=== PATIENT | male | born 1935 | race Caucasian/White ===

== ENCOUNTER 2017-10-23 16:46 | Emergency (ER) | payer MEDICARE, OTHER ==
[~2017-10-23] VITALS: Ht 188 cm; Wt 74.4 kg
[~2017-10-23 16:46] MED LIST: ASP81CT; ASP81CT PO; ASP81TEC PO; BSC10SU PR; CLOP75TA; CODE-54 PO; DICL100G13 TOP; DILT120C PO; FNST5T; HYDR-3583 PO; HYDR-757 PO; LOSA25TA15 PO; LOVA40TA54; MAGN296S PO; MULT-963 PO; NIAC1CAP PO; ONDN4T PO; ORPH100T PO; PEG250PW PO; SIMV20TA3; SMV20T; WARF5TAB6 PO
--- OUTSIDE RECORDS SUMMARY | 2017-10-23 16:52 | XMS REPORT | Continuity of Care Document ---
Author Author [facility] Organization [facility] Address Unknown Phone Unavailable Allergies Active Description Code Type Severity Reaction Onset Reported/Identified Relationship to Patient Clinical Status Yes NKANo Known Allergies NKA Miscellaneous Allergy Mild N/A 04/01/2009 Yes statin med statin med Unknown N/A 07/22/2014 Yes codeine [id number] Drug Allergy Mild Altered taste 02/13/2015 Medications Problems Date Dx Coded Attending Type Code Diagnosis Diagnosed By 10/13/2014 CAITLYN SANTILLAN DRY CELL SEALER Ot 427.31 10/22/2014 CAITLYN SANTILLAN DRY CELL SEALER Ot 427.31 11/04/2014 CAITLYN SANTILLAN DRY CELL SEALER Ot 427.31 11/04/2014 CAITLYN SANTILLAN DRY CELL SEALER Ot 427.31 11/05/2014 CAITLYN SANTILLAN DRY CELL SEALER Ot 427.31 11/08/2014 CIATLYN SANTILLAN DRY CELL SEALER Ot 427.31 11/08/2014 CAITLYN SANTILLAN DRY CELL SEALER Ot 427.31 12/13/2014 VIVIAN ROMANO, SADA Conteh Ot 564.00 12/13/2014 VIVIAN ROMANO, SADA Coneth Ot 724.2 12/13/2014 SADA PARK MD Ot V58.61 12/18/2014 CAITLYN SANTILLAN DRY CELL SEALER Ot 427.31 01/04/2015 JUAN GUERRIER DO Ot 724.2 01/04/2015 JUAN GUERRIER DO Ot 805.4 01/04/2015 JUAN GUERRIER DO Ot E000.8 01/04/2015 JUAN GUERRIER DO Ot E927.0 02/13/2015 Ot 427.31 02/13/2015 Ot 553.1 02/13/2015 Ot 793.4 02/13/2015 Ot 427.31 02/13/2015 LANDEN LUCAS APRN Ot 719.45 02/13/2015 LANDEN LUCAS APRN Ot 724.2 Procedures Results Encounters ACCT No. Visit Date/Time Discharge Status Pt. Type Provider Facility Loc./Unit Complaint [id number] 02/13/2015 11:28:00 2014 13:00:00 DIS Emergency LANDEN LUCAS APRN [facility] ER [id number] 01/04/2015 12:07:00 2014 14:15:00 DIS Emergency JUAN GUERRIER DO [facility] ER [id number] 01/02/2015 08:32:00 2014 23:59:59 CLS Outpatient CAITLYN SANTILLAN [facility] LAB [id number] 12/13/2014 13:12:00 2014 16:08:00 DIS Emergency SADA PARK MD [facility] ER [id number] 10/08/2014 08:09:00 2013 00:01:00 DIS Outpatient CAITLYN SANTILLAN [facility] LAB [id number] 07/22/2014 15:21:00 2013 18:06:00 DIS Emergency [id number] 06/24/2014 08:29:00 2013 00:01:00 DIS Outpatient [id number] 07/16/2014 13:20:00 2013 14:42:00 DIS Emergency [id number] 05/20/2014 12:54:00 2013 20:00:00 DIS Outpatient [id number] 02/24/2014 08:12:00 2013 00:01:00 DIS Outpatient [id number] 10/08/2013 08:19:00 2013 00:01:00 DIS Outpatient [id number] 08/05/2013 12:38:00 2012 00:01:00 DIS Outpatient [id number] 10/21/2013 08:29:00 2012 23:59:59 CLS Outpatient [id number] 08/02/2013 01:20:00 2012 15:25:00 DIS Inpatient [id number] 05/02/2013 08:20:00 2012 23:59:59 CLS Outpatient [id number] 04/10/2013 07:53:00 2012 11:20:00 DIS Outpatient [id number] 04/03/2013 07:27:00 2012 23:59:59 CLS Outpatient [id number] 02/13/2015 11:42:00 Document Registration [id number] 11/04/2013 13:45:00 Document Registration
[2017-10-23] MEDS ORDERED: DOCU-238 PO (17:23)
[2017-10-23] MEDS ORDERED: FINA5TAB6 PO (17:23)
[2017-10-23] MEDS ORDERED: APIX5TAB PO (17:23)
[2017-10-23] MEDS ORDERED: DOCU100T7 PO (17:23)
--- NOTE | 2017-10-23 18:42 | Diagnostic Imaging Report ---
INDICATION: Abdominal pain. Two views were obtained. FINDINGS: The lung bases are clear. The bowel gas pattern is nonspecific. There is no free air. There are no abnormal abdominal calcifications. There have been previous kyphoplasties at L2, L3, and L4. IMPRESSION: Nonspecific bowel gas pattern. Dictated by: Dictated on workstation # [id number]
[2017-10-23 19:50] LABS: BILIRUBIN,URINE NEGATIVE (NEGATIVE); KETONES,URINE NEGATIVE (NEGATIVE); LEUKOCYTE ESTERASE ,URINE NEGATIVE (NEGATIVE); NITRITE,URINE NEGATIVE (NEGATIVE); PH,URINE 5 (5-9); PROTEIN,URINE NEGATIVE (NEGATIVE); UROBILINOGEN,URINE NORMAL (NORMAL)
[2017-10-23 20:00] LABS: SQUAMOUS EPITHELIAL CELL,UR 0-2 /HPF
[2017-10-23] MEDS ORDERED: metroNIDAZOLE 500 MG (FLAGYL) TAB PO ONE (20:45)
[2017-10-23] MEDS ORDERED: CIPROFLOXACIN 500 MG (CIPRO) TABLET PO ONE (20:45)
[2017-10-23] MEDS ORDERED: LIDOCAINE JELLY 2% (XYLOCAINE) 5 ML TUBE TOP ONE (20:45)
[2017-10-23] MEDS ORDERED: METR500T PO (20:53)
[2017-10-23] MEDS ORDERED: HC A30CR RC (20:53)
[2017-10-23] MEDS ORDERED: CIPR-225 PO (20:53)
--- NOTE | 2017-10-23 20:55 | ED GI ---
General Chief Complaint: Rect Problems Stated Complaint: CONSTIPATION/RECTAL PAIN Nursing Triage Note: PT TO ROOM 9. STATES THAT HE TOOK MIRALAX THIS MORNING DUE TO FEELING CONSTIPATED. PT NOW FEELS LIKE HE IS STRAINING WHEN HE GOES AND HAS HAD LIQUID STOOLS. ALSO COMPLAINING OF RECTAL PAIN. Sepsis Screen: No Definite Risk Source of Information: Patient Exam Limitations: No Limitations History of Present Illness Time Seen By Provider: 18:24 Initial Comments This 82-year-old gentleman presents to the emergency room complaining of constipation for which he took MiraLAX this morning. Since then he has been passing small quantities of watery stool and has been incontinent at times. He describes these as "liquid farts". He complains of associated rectal pain and lower back ache. He denies nausea or vomiting. He is afebrile. Pain has been present since 16:00. He reports chronic urinary frequency which is unchanged. He denies rectal bleeding. He is on Eliquis for A-fib. Allergies and Home Medications Allergies Coded Allergies: codeine (Unverified Adverse Reaction, Mild, Altered taste, 02/13/15) Uncoded Allergies: statin med (Allergy, Unknown, 07/22/14) dry mouth; unable to urinate Home Medications Apixaban 5 Mg Tablet, 5 MG PO BID, (Reported) Aspirin 81 Mg Tabec, 81 MG PO DAILY, (Reported) Ciprofloxacin HCl 500 Mg Tablet, 500 MG PO BID, #14 Prescribed by: GLENNY HOWARD on 10/23/172052 Clotrimazole 15 Gm Cream..g., 15 GM TP BID, #1 Ref 1 Prescribed by: GLENNY HOWARD on 10/23/172055 Docusate Sodium 100 Mg Capsule, 100 MG PO, (Reported) Docusate Sodium 100 Mg Tablet, Unknown Dose PO, (Reported) Finasteride 5 Mg Tablet, 5 MG PO, (Reported) Hydrocortisone/Pramoxine 30 Gm Cream.appl, 1 APPLIC RC QID, #1 Prescribed by: GLENNY HOWARD on 10/23/172052 Metronidazole 500 Mg Tablet, 500 MG PO QID, #28 Prescribed by: GLENNY HOWARD on 10/23/172052 Multivitamin 1 Each Tablet, 1 TAB PO DAILY, (Reported) Review of Systems Constitutional: no symptoms reported EENTM: No Symptoms Reported Respiratory: No Symptoms Reported Cardiovascular: See HPI Gastrointestinal: See HPI Genitourinary: See HPI Musculoskeletal: no symptoms reported Skin: no symptoms reported Psychiatric/Neurological: No Symptoms Reported Endocrine: No Symptoms Reported Past Cwvgbpj-Kjzzej-Kaiqvb Hx Patient Social History Recent Foreign Travel: No Contact w/Someone Who Travel: No Recent Infectious Disease Expo: No Recent Hopitalizations: No Physical Abuse: No Sexual Abuse: No Immunizations Up To Date Tetanus Booster (TDap): Unknown PED Vaccines UTD: No Date of Pneumonia Vaccine: Aug 20, 2012 Date of Influenza Vaccine: Aug 20, 2014 Seasonal Allergies Seasonal Allergies: No Surgeries History of Surgeries: Yes (Cardiac stent x 2) Surgeries: Coronary Stent, Orthopedic Respiratory History of Respiratory Disorde: No Cardiovascular History of Cardiac Disorders: Yes (Cardiac stent X2 ) Cardiac Disorders: Deep Vein Thrombosis, Heart Attack, High Cholesterol, Hypertension Neurological History of Neurological Disord: No Neurological Disorders: Vertigo Reproductive System Hx Reproductive Disorders: No Genitourinary History of Genitourinary Disor: Yes Genitourinary Disorders: Benign Prostatic Hyperpl Gastrointestinal History of Gastrointestinal Di: No Musculoskeletal History of Musculoskeletal Dis: Yes (FX L WRIST) Musculoskeletal Disorders: Chronic Back Pain Endocrine History of Endocrine Disorders: No HEENT History of HEENT Disorders: No Cancer History of Cancer: No Psychosocial History of Psychiatric Problem: No Behavioral Health Disorders: Anxiety Suicide Risk Score: 0 Integumentary History of Skin or Integumenta: No Blood Transfusions History of Blood Disorders: No Adverse Reaction to a Blood Tr: No Physical Exam Vital Signs VS - Last 72 Hours, by Label 10/23/17 10/23/17 16:56 21:10 Temp 98.6 98.6 Pulse 98 98 Resp 24 24 B/P (MAP) 146/98 (114) Pulse Ox 96 96 O2 Delivery Room Air Capillary Refill : Less Than 3 Seconds General Appearance: WD/WN, no apparent distress HEENT: PERRL/EOMI, normal ENT inspection Neck: normal inspection Respiratory: lungs clear, normal breath sounds, no respiratory distress, no accessory muscle use Cardiovascular: regular rate, rhythm, no edema, no murmur Gastrointestinal: normal bowel sounds, non tender, soft Genital/Rectal: normal rectal tone, tenderness, other (anal tissue is inflamed with small amount of gross blood on the skin present. Digital rectal exam revealed no masses but there was rectal pain with palpation. No active bleeding noted.) Extremities: normal inspection, no pedal edema Skin: warm/dry, rash (slightly raised and erythematous patch of skin on the left buttocks) Progress/Results/Core Measures Results/Orders Lab Results Laboratory Tests Test 10/23/17 19:44 Range/Units Urine Color YELLOW Urine Clarity CLEAR Urine pH 5 5-9 Urine Specific [place] 1.025 H 1.016-1.022 Urine Protein NEGATIVE NEGATIVE Urine Glucose (UA) NEGATIVE NEGATIVE Urine Ketones NEGATIVE NEGATIVE Urine Nitrite NEGATIVE NEGATIVE Urine Bilirubin NEGATIVE NEGATIVE Urine Urobilinogen NORMAL NORMAL MG/DL Urine Leukocyte Esterase NEGATIVE NEGATIVE Urine RBC (Auto) NEGATIVE NEGATIVE Urine RBC NONE /HPF Urine WBC NONE /HPF Urine Squamous Epithelial Cells 0-2 /HPF Urine Crystals NONE /LPF Urine Bacteria NONE /HPF Urine Casts NONE /LPF Urine Mucus NEGATIVE /LPF Urine Culture Indicated NO My Orders Orders - GLENNY ABREU MD Abdomen, Flat & Upright/Decub (10/23/17 18:12) Ua Culture If Indicated (10/23/17 19:23) Lidocaine 2% Jelly 5 Ml (Xylocaine Jelly (10/23/17 20:45) Ciprofloxacin Tablet (Cipro Tablet) (10/23/17 20:45) Metronidazole Tablet (Flagyl Tablet) (10/23/17 20:45) Lidocaine 2% Viscous 15 Ml (Xylocaine Vi (10/23/17 21:00) Medications Given in ED Current Medications Medications Dose Ordered Sig/Adelfo Route Start Time Stop Time Status Last Admin Dose Admin Ciprofloxacin 500 mg ONCE ONCE PO 10/23/17 20:45 10/23/17 20:46 DC 10/23/17 21:05 500 MG Metronidazole 500 mg ONCE ONCE PO 10/23/17 20:45 10/23/17 20:46 DC 10/23/17 21:05 500 MG Vital Signs/I&O Vital Sign - Last 12Hours 10/23/17 10/23/17 16:56 21:10 Temp 98.6 98.6 Pulse 98 98 Resp 24 24 B/P (MAP) 146/98 (114) Pulse Ox 96 96 O2 Delivery Room Air Blood Pressure Mean: 114 Progress Note : Progress Note Patient developed rectal bleeding while in the ER. Rectal exam demonstrated inflamed skin and tender rectal vault. He was treated for proctitis with oral antibiotics. He was given viscous lidocaine to use as a topical anesthetic. Departure Impression Impression: Primary Impression: Proctitis Additional Impression: Tinea corporis Disposition: 01 HOME, SELF-CARE Condition: Improved Departure-Patient Inst. Decision time for Depature: 20:51 Referrals: LISETH SCHMITZ MD (PCP/Family) Primary Care Physician Patient Instructions: Proctitis Add. Discharge Instructions: Drink plenty of clear liquids. Gradually advance your diet as tolerated. Complete your antibiotics as prescribed. Return to emergency room if symptoms worsen. Specifically, return to care if you develop fever over 100, worsening pain, or worsening bleeding. Follow up with your primary care provider as soon as possible. Call tomorrow morning when the office opens to obtain a follow- up. Do not take Eliquis as long as you have active rectal bleeding. You may take Tylenol (acetaminophen) up to 1000 mg every 6 hours as needed for pain. Use the Analpram as prescribed to soothe the rectal irritation. Tonight you may use the lidocaine jelly applied directly to your rectum to help with pain relief. Apply the clotrimazole cream to the spot on your left buttocks. Follow -up with your primary care provider for further evaluation if this does not resolve the spot within 2 weeks. All discharge instructions reviewed with patient and/or family. Voiced understanding. Scripts Clotrimazole (Clotrimazole) 15 Gm Cream..g. 15 GM TP BID, #1 TUBE 1 Refill Prov: GLENNY ABREU MD 10/23/17 Metronidazole (Flagyl) 500 Mg Tablet 500 MG PO QID, #28 TAB Prov: GLENNY ABREU MD 10/23/17 Ciprofloxacin HCl (Cipro) 500 Mg Tablet 500 MG PO BID, #14 TAB Prov: GLENNY ABREU MD 10/23/17 Hydrocortisone/Pramoxine (Analpram Hc 2.5% Cream) 30 Gm Cream.appl 1 APPLIC RC QID, #1 EA Prov: GLENNY ABREU MD 10/23/17 Copy Copies To 1: LISETH SCHMITZ MD Copies To 2: UZIEL SHEEHAN MD [facility]S GLENNY ABREU MD Oct 23, 2017 20:55
[2017-10-23] MEDS ORDERED: CLOT15CR5 TP (20:56)
[2017-10-23] MEDS ORDERED: LIDOCAINE 2% VISCOUS 15 ML UDC ONE (21:00)
[2017-10-23 21:10] VITALS: BP 146/98
== END 2017-10-23 21:10 | disposition home or self-care (01) ==
LOC: EDUNIT# 16:46 → ER 16:48
DX: K62.89 Other specified diseases of anus and rectum (principal); B35.4 Tinea corporis; I48.91 Unspecified atrial fibrillation; I25.2 Old myocardial infarction; E78.00 Pure hypercholesterolemia, unspecified; I10 Essential (primary) hypertension; N40.0 Benign prostatic hyperplasia without lower urinary tract symptoms; F41.9 Anxiety disorder, unspecified; Z79.01 Long term (current) use of anticoagulants; Z79.82 Long term (current) use of aspirin; Z95.5 Presence of coronary angioplasty implant and graft; Z86.718 Personal history of other venous thrombosis and embolism
CPT/HCPCS: 74020; 81000; 99283

== ENCOUNTER 2018-01-11 13:31 | Outpatient (CLI) | payer MEDICARE, OTHER ==
[~2018-01-11] VITALS: Ht 188 cm; Wt 74.4 kg
[~2018-01-11 13:31] MED LIST changes: +APIX5TAB PO; +CIPR-225 PO; +CLOT15CR5 TP; +DOCU-238 PO; +DOCU100T7 PO; +FINA5TAB6 PO; +HC A30CR RC; +METR500T PO
[2018-01-11] MEDS ORDERED: DEXAMETHASONE 10 MG/ML (DECADRON) 1 ML VIAL ONE (13:35)
[2018-01-11 13:52] VITALS: BP 162/99
[2018-01-11 14:17] VITALS: BP 161/111
== END 2018-01-11 14:19 | disposition home or self-care (01) ==
LOC: CARD 13:31
PROVIDERS: ATTEND Pain Medicine Interventional Pain Medicine
DX: M54.14 Radiculopathy, thoracic region (principal)
CPT/HCPCS: 62321

== ENCOUNTER 2019-03-10 03:49 | Inpatient (IN) | payer MEDICARE, OTHER ==
[2019-03-10] VITALS (9 sets, daily range): BP systolic 93–146; BP diastolic 35–98
[~2019-03-10] VITALS: Ht 189.2 cm; Wt 78.0 kg
[2019-03-10 04:09] LABS: BASOPHILS % (AUTO) 0 % (0-10); EOSINOPHILS # (AUTO) 0.1 10^3/uL (0.0-0.3); EOSINOPHILS % (AUTO) 1 % (0-10); HEMATOCRIT 41 % (40-54); HEMOGLOBIN 14.1 G/DL (13.3-17.7); LYMPHOCYTES # (AUTO) 2.7 X 10^3 (1.0-4.0); LYMPHOCYTES % (AUTO) 37 % (12-44); MEAN CORPUSCULAR HEMOGLOBIN 30 PG (25-34); MEAN CORPUSCULAR HGB CONC 34 G/DL (32-36); MEAN CORPUSCULAR VOLUME 89 FL (80-99); MEAN PLATELET VOLUME 11.4 FL (7.4-10.4); MONOCYTES # (AUTO) 0.7 X 10^3 (0.0-1.0); MONOCYTES % (AUTO) 9 % (0-12); NEUTROPHILS # (AUTO) 3.9 X 10^3 (1.8-7.8); NEUTROPHILS % (AUTO) 52 % (42-75); PLATELET COUNT 121 10^3/uL (130-400); RED CELL DISTRIBUTION WIDTH 15.7 % (10.0-14.5); WHITE BLOOD COUNT 7.4 10^3/uL (4.3-11.0)
[2019-03-10 04:15] LABS: INR 1.2 (0.8-1.4); PROTHROMBIN TIME PATIENT 16.1 SEC (12.2-14.7)
[2019-03-10] MEDS ORDERED: DILTIAZEM INJECTION 125 MG in NS (IVPB) 100 ML IV SCH (04:15)
[2019-03-10] MEDS ORDERED: DILTIAZEM 25 MG/5 ML INJ (CARDIZEM) VIAL IVP ONE (04:15)
[2019-03-10] MEDS ORDERED: DILTIAZEM 125 MG/25 ML IV (CARDIZEM) IV ONE (04:19)
--- NOTE | 2019-03-10 04:23 | ED Cardiac General ---
History of Present Illness General Chief Complaint: Chest Pain Stated Complaint: CHEST PAIN Nursing Triage Note: EMS activated for a patient with c/o of left sided chest pain accompanied by shortness of breath that began at 0226. Patient advises he took one nitro and the chest pain has since improved. Source: patient, EMS Exam Limitations: no limitations History of Present Illness Date Seen by Provider: Mar 10, 2019 Time Seen by Provider: 03:56 Initial Comments Here with report of left-sided chest pain that began around 2:30 this morning. He did take a nitroglycerin that helped. EMS was called. EMS reports giving 4 baby aspirin and noted patient to be tachycardic that seemed regular to them at that point. Initially somewhat hypertensive but improved with time. They did initiate IV and started normal saline. Patient denies nausea or vomiting. He does admit to cough over the last several days. No fever or chills. Chest pain is lateral and aching on the left side. Timing/Duration: 1-3 hours Severity: moderate Location: other (left chest) Activities at Onset: sleep Prior CP/Workup: cardiac cath, echocardiography, stress test NTG SL TEAR DOWN MATCHER: Yes (per patient 1 at home ) ASA po TEAR DOWN MATCHER: Yes (324 per EMS) Associated Systoms: Chest Pain, Cough; No Nausea/Vomiting; Shortness of Air; No Weakness Allergies and Home Medications Allergies Coded Allergies: codeine (Unverified Adverse Reaction, Mild, Altered taste, 02/13/15) Uncoded Allergies: statin med (Allergy, Unknown, 07/22/14) dry mouth; unable to urinate Home Medications Apixaban 5 Mg Tablet, 5 MG PO BID, (Reported) Aspirin 81 Mg Tabec, 81 MG PO DAILY, (Reported) Ciprofloxacin HCl 500 Mg Tablet, 500 MG PO BID Prescribed by: GLENNY HOWARD on 10/23/172052 Clotrimazole 15 Gm Cream..g., 15 GM TP BID Prescribed by: GLENNY HOWARD on 10/23/172055 Hydrocortisone/Pramoxine 30 Gm Cream.appl, 1 APPLIC RC QID Prescribed by: GLENNY HOWARD on 10/23/172052 Metronidazole 500 Mg Tablet, 500 MG PO QID Prescribed by: GLENNY HOWARD on 10/23/172052 Multivitamin 1 Each Tablet, 1 TAB PO DAILY, (Reported) Patient Home Medication List Home Medication List Reviewed: Yes Review of Systems Review of Systems Constitutional: see HPI; No chills, No fever EENTM: No Symptoms Reported Respiratory: See HPI, Cough, Shortness of Air Cardiovascular: Irregular Heart Rate Gastrointestinal: No Symptoms Reported Genitourinary: No Symptoms Reported Musculoskeletal: no symptoms reported Skin: no symptoms reported Psychiatric/Neurological: No Symptoms Reported All Other Systems Reviewed Negative Unless Noted: Yes Past Eqbslpw-Rmchpk-Mffroi Hx Past Med/Social Hx: Reviewed Nursing Past Med/Soc Hx Patient Social History Alcohol Use: Denies Use Recreational Drug Use: No Smoking Status: Never a Smoker Recent Foreign Travel: No Contact w/Someone Who Travel: No Recent Infectious Disease Expo: No Recent Hopitalizations: No Immunizations Up To Date Tetanus Booster (TDap): Unknown PED Vaccines UTD: No Date of Pneumonia Vaccine: Aug 20, 2012 Date of Influenza Vaccine: Aug 20, 2014 Seasonal Allergies Seasonal Allergies: No Past Medical History Surgeries: Yes (Cardiac stent x 2) Coronary Stent, Orthopedic Respiratory: No Cardiac: Yes (Cardiac stent X2 ) Deep Vein Thrombosis, Heart Attack, High Cholesterol, Hypertension Neurological: No Vertigo Reproductive Disorders: No Genitourinary: Yes Benign Prostatic Hyperpl Gastrointestinal: No Musculoskeletal: Yes (FX L WRIST) Chronic Back Pain Endocrine: No HEENT: No Cancer: No Psychosocial: No Anxiety Integumentary: No Blood Disorders: No Adverse Reaction/Blood Tranf: No Family Medical History Reviewed Nursing Family Hx Physical Exam Vital Signs Vital Signs - First Documented 03/10/19 03:58 Temp 98.7 Pulse 125 Resp 16 B/P (MAP) 120/88 (99) Pulse Ox 97 O2 Delivery Room Air O2 Flow Rate 2.0 Capillary Refill : Less Than 3 Seconds Height, Weight, BMI Height: 6'0" Weight: 160lbs. 0.0oz. 72.934691by; 21.1 BMI Method:Estimated General Appearance: No Apparent Distress, WD/WN HEENT: PERRL/EOMI, Pharynx Normal Neck: Non Tender, Supple Respiratory: Lungs Clear, Normal Breath Sounds Cardiovascular: Irregularly Irregular, Tachycardia Gastrointestinal: Non Tender, Soft Extremity: Normal Range of Motion, Non Tender Neurologic/Psychiatric: Alert, Oriented x3 Skin: Normal Color, Warm/Dry Progress/Results/Core Measures Results/Orders Lab Results Laboratory Tests Test 03/10/19 03:02 03/10/19 03:52 Range/Units B-Type Natriuretic Peptide 215.1 H <100.0 PG/ML White Blood Count 7.4 4.3-11.0 10^3/uL Red Blood Count 4.66 4.35-5.85 10^6/uL Hemoglobin 14.1 13.3-17.7 G/DL Hematocrit 41 40-54 % Mean Corpuscular Volume 89 80-99 FL Mean Corpuscular Hemoglobin 30 25-34 PG Mean Corpuscular Hemoglobin Concent 34 32-36 G/DL Red Cell Distribution Width 15.7 H 10.0-14.5 % Platelet Count 121 L 130-400 10^3/uL Mean Platelet Volume 11.4 H 7.4-10.4 FL Neutrophils (%) (Auto) 52 42-75 % Lymphocytes (%) (Auto) 37 12-44 % Monocytes (%) (Auto) 9 0-12 % Eosinophils (%) (Auto) 1 0-10 % Basophils (%) (Auto) 0 0-10 % Neutrophils # (Auto) 3.9 1.8-7.8 X 10^3 Lymphocytes # (Auto) 2.7 1.0-4.0 X 10^3 Monocytes # (Auto) 0.7 0.0-1.0 X 10^3 Eosinophils # (Auto) 0.1 0.0-0.3 10^3/uL Basophils # (Auto) 0.0 0.0-0.1 10^3/uL Prothrombin Time 16.1 H 12.2-14.7 SEC INR Comment 1.2 0.8-1.4 Activated Partial Thromboplast Time 33 24-35 SEC Sodium Level 140 135-145 MMOL/L Potassium Level 3.5 L 3.6-5.0 MMOL/L Chloride Level 109 H 98-107 MMOL/L Carbon Dioxide Level 19 L 21-32 MMOL/L Anion Gap 12 5-14 MMOL/L Blood Urea Nitrogen 13 7-18 MG/DL Creatinine 0.89 0.60-1.30 MG/DL Estimat Glomerular Filtration Rate > 60 BUN/Creatinine Ratio 15 Glucose Level 111 H 70-105 MG/DL Calcium Level 9.5 8.5-10.1 MG/DL Corrected Calcium 9.6 8.5-10.1 MG/DL Magnesium Level 2.1 1.8-2.4 MG/DL Total Bilirubin 1.3 H 0.1-1.0 MG/DL Aspartate Amino Transf (AST/SGOT) 30 5-34 U/L Alanine Aminotransferase (ALT/SGPT) 26 0-55 U/L Alkaline Phosphatase 52 40-136 U/L Myoglobin 64.1 10.0-92.0 NG/ML Troponin I < 0.028 <0.028 NG/ML Total Protein 6.6 6.4-8.2 GM/DL Albumin 3.9 3.2-4.5 GM/DL My Orders Orders - NICOLETTE LARSEN MD Cbc With Automated Diff (03/10/19 04:01) Magnesium (03/10/19 04:01) Chest 1 View, Ap/Pa Only (03/10/19 04:01) Ekg Tracing (03/10/19 04:01) Cardiac Profile 1 (03/10/19 04:01) Comprehensive Metabolic Panel (03/10/19 04:01) Myoglobin Serum (03/10/19 04:01) Protime With Inr (03/10/19 04:01) Partial Thromboplastin Time (03/10/19 04:01) O2 (03/10/19 04:01) Monitor-Rhythm Ecg Trace Only (03/10/19 04:01) Lipid Panel (03/11/19 06:00) Ed Iv/Invasive Line Start (03/10/19 04:01) Ns (Ivpb) (Sodium C... W/Diltiazem Injec (03/10/19 04:15) Diltiazem Injection (Cardizem Injection) (03/10/19 04:15) BNP (03/10/19 04:16) Diltiazem Iv For Drip (Cardizem Iv For D (03/10/19 04:19) Medications Given in ED Current Medications Medications Dose Ordered Sig/Adelfo Route Start Time Stop Time Status Last Admin Dose Admin Diltiazem HCl 10 mg ONCE ONCE IVP 03/10/19 04:15 03/10/19 04:16 DC 03/10/19 04:27 10 MG Diltiazem HCl 125 mg STK-MED ONCE IV 03/10/19 04:19 03/10/19 04:23 DC 03/10/19 04:28 125 MG Vital Signs/I&O 03/10/19 03/10/19 03/10/19 03:58 03:58 04:28 Temp 98.7 Pulse 125 116 Resp 16 14 B/P (MAP) 120/88 (99) 125/95 Pulse Ox 97 100 O2 Delivery Room Air Nasal Cannula O2 Flow Rate 2.0 Blood Pressure Mean: 99 Progress Progress Note : Progress Note Seen and evaluated. IV, labs, EKG and chest x-ray ordered. 1 L normal saline bolus that was initiated by EMS will be continued to at least 500 mL. Cardizem bolus of 10 mg IV and drip at 10 mg an hour to be initiated for A. fib RVR noted on EKG with heart rate up to 140s. 0535: Heart rate in the 90s. Chest x- ray shows right pleural effusion. Does have history of paroxysmal atrial fibrillation. He is currently on Eliquis. Patient will require admission. I did discuss the case with Dr. Ly at 0535 and she accepts patient for admission , observation status. [address] Brady and he accepts patient in consult and request nothing by mouth status. Discussed with patient who agrees with plan. Initial ECG Impression Date: Mar 10, 2019 Initial ECG Impression Time: 03:50 Initial ECG Rate: 143 Initial ECG Rhythm: A Fib/Flutter Initial ECG Impression: Atrial Fibrillation w/RVR Comment Atrial fibrillation with rapid ventricular response at rate of 143. Normal axis. Intraventricular conduction delay noted. Similar presentation on one May 2014 EKG. No evidence of ST elevation OR. Interpreted by me. Diagnostic Imaging Diagonstic Imaging: Xray Plain Films/CT/US/NM/MRI: chest Comments Right pleural effusion, cardiomegaly, no infiltrate. Departure Communication (Admissions) Time/Spoke to Admitting Phy: 05:35 Time/Spoke to Consulting Phy: 05:40 Impression Primary Impression: Atrial fibrillation with rapid ventricular response Additional Impressions: Chest pain Qualified Codes: R07.9 - Chest pain, unspecified Pleural effusion, right Disposition: ADMITTED INPATIENT Condition: Stable Admissions Decision to Admit Reason: Admit from ER (General) Decision to Admit/Date: Mar 10, 2019 Time/Decision to Admit Time: 05:35 Departure-Patient Inst. Referrals: LISETH SCHMITZ MD (PCP/Family) Primary Care Physician NICOLETTE LARSEN MD Mar 10, 2019 04:23
[2019-03-10 04:24] LABS: ALANINE AMINOTRANSFERASE 26 U/L (0-55); ALBUMIN 3.9 GM/DL (3.2-4.5); ALKALINE PHOSPHATASE 52 U/L (40-136); BILIRUBIN,TOTAL 1.3 MG/DL (0.1-1.0); BUN/CREATININE RATIO 15; CALCIUM 9.5 MG/DL (8.5-10.1); CARBON DIOXIDE 19 MMOL/L (21-32); CHLORIDE 109 MMOL/L (98-107); CREATININE SERUM 0.89 MG/DL (0.60-1.30); GFR ESTIMATED > 60; GLUCOSE 111 MG/DL (70-105); MAGNESIUM 2.1 MG/DL (1.8-2.4); POTASSIUM 3.5 MMOL/L (3.6-5.0); SODIUM 140 MMOL/L (135-145); TOTAL PROTEIN 6.6 GM/DL (6.4-8.2)
[2019-03-10] MEDS ORDERED: KETOROLAC 30 MG/ML VIAL IVP STA (05:50)
--- NOTE | 2019-03-10 06:27 | NUR ---
TAJ ELKINS JR admitted to room CU7-1, with an admitting diagnosis of Afib RVR, chest pain, on 03/10/19 from ED via stretcher, accompanied by staff.TAJ ELKINS JR introduced to surroundings, call light, bed controls, phone, TV, temperature control, lights, meal times, smoking policy, visitor policy, side rail policy, bathrooms and showers. Patient Rights given to patient in the handbook. TAJ ELKINS JR verbalizes understanding that [facility] is not responsible for the loss or damage to any personal effects or valuables that are kept in the patients possession during their hospitalization. The following Patient Care Plans were discussed with the patient: Discharge Planning. TAJ ELKINS JR verbalizes understanding of Interdisciplinary Patient Education. Patient and/or family were informed about the Rapid Response Team and its purpose.
[2019-03-10] MEDS ORDERED: NS IV 1000 ML 1,000 ML ONE (06:46)
[2019-03-10] MEDS: NS IV 1000 ML 1,000 ML IV SCH ×2 (06:54→20:01)
[2019-03-10] MEDS ORDERED: NITROGLYCERIN 0.4 MG SL TABS BTL 25'S SL PRN (08:00)
[2019-03-10] MEDS ORDERED: ONDANSETRON 4 MG/2 ML (SDV) Z0FRAN IVP PRN (08:00)
[2019-03-10] MEDS ORDERED: morphine INJ 4 MG/ML 1 ML (VIAL/SYRINGE) IVP PRN (08:00)
[2019-03-10] MEDS: ASPIRIN E.C. 81 MG (ECOTRIN) TAB PO SCH (08:02)
[2019-03-10] MEDS: APIXABAN 5 MG (ELIQUIS) TABLET PO SCH ×2 (08:03→20:01)
--- NOTE | 2019-03-10 08:25 | Diagnostic Imaging Report ---
EXAM: CHEST 1 VIEW, AP/PA ONLY INDICATION: Chest pain. COMPARISON: Chest radiograph 07/22/2014. FINDINGS: Low lung volumes accentuate the cardiomegaly. Normal central pulmonary vascularity. Bibasilar atelectasis or infiltrate, greater on the right. Small right pleural effusion. No pneumothorax. Biapical scarring. No acute osseous findings. IMPRESSION: 1. Low lung volumes accentuate the cardiomegaly. 2. Bibasilar atelectasis or infiltrate, greater on the right where there is a small right pleural effusion. Dictated by: Dictated on workstation # [id number]
--- NOTE | 2019-03-10 09:11 | NUR ---
0850 MORPHINE GIVEN FOR C/O OF LOWER LEFT BACK PAIN.
--- NOTE | 2019-03-10 09:38 | History & Physical-Hospitalist ---
History of Present Illness HPI/Chief Complaint This is an 83-year-old white male who presents to the emergency room this morning with a 2 day history of coughing and left-sided chest discomfort. The patient was concerned that the cough was possibly from something related to his heart. The patient this morning complains primarily of low back pain. He is awake and alert and animated and appears to be in good health. He had taken nitroglycerin at home that relieved his cough. He has a long-standing history of atrial fibrillation for which he is on Eliquis. His chest x-ray showed possible bilateral lower lobe infiltrates or atelectasis and a small right pleural effusion. His heart rate was up in the 140s upon presentation to the emergency room. Source: patient Exam Limitations: no limitations Date Seen 03/10/19 Time Seen by a Provider: 09:00 Attending Physician Kellie Ly MD PCP Jessi Matthews MD Referring Physician Date of Admission Mar 10, 2019 at 05:33 Home Medications & Allergies Home Medications Reviewed patient Home Medication Reconciliation performed by pharmacy medication reconciliations mosaic technician and/or nursing. Patients Allergies have been reviewed. Allergies Allergies Coded Allergies codeine (Unverified Adverse Reaction, Mild, Altered taste, 02/13/15) Uncoded Allergies statin med ( Allergy, Unknown, 07/22/14) dry mouth; unable to urinate Past Ybstiqx-Ubnubv-Gzuooi Hx Past Med/Social Hx: Reviewed Nursing Past Med/Soc Hx Patient Social History Marrital Status: Employed/Student: retired Alcohol Use: Denies Use Recreational Drug Use: No Smoking Status: Never a Smoker Recent Foreign Travel: No Contact w/other who traveled: No Recent Hopitalizations: No Recent Infectious Disease Expo: No Immunizations Up To Date Tetanus Booster (TDap): Unknown Pediatric: No Date of Pneumonia Vaccine: Aug 20, 2012 Date of Influenza Vaccine: Aug 20, 2014 Seasonal Allergies Seasonal Allergies: No Past Medical History Surgeries: Coronary Stent, Orthopedic Cardiac: Deep Vein Thrombosis, Heart Attack, High Cholesterol, Hypertension Neurological: Vertigo Reproductive: No Genitourinary: Benign Prostatic Hyperpl Musculoskeletal: Chronic Back Pain Psychosocial: Anxiety History of Blood Disorders: No Adverse Reaction to Blood Agarwal: No Family History Reviewed Nursing Family Hx Review of Systems Constitutional: see HPI EENTM: no symptoms reported Respiratory: cough Cardiovascular: chest pain Gastrointestinal: no symptoms reported Genitourinary: no symptoms reported Musculoskeletal: back pain Skin: no symptoms reported Psychiatric/Neurological: No Symptoms Reported Physical Exam Physical Exam Vital Signs Vital Signs - First Documented 03/10/19 03:58 Temp 98.7 Pulse 125 Resp 16 B/P (MAP) 120/88 (99) Pulse Ox 97 O2 Delivery Room Air O2 Flow Rate 2.0 Capillary Refill : Less Than 3 Seconds Height, Weight, BMI Height: 6'2.50" Weight: 166lbs. 2.0oz. [id number]; 21.0 BMI Method:Estimated General Appearance: No Apparent Distress, WD/WN HEENT: PERRL/EOMI, Normal ENT Inspection Neck: Normal Inspection, Non Tender, Supple Respiratory: Chest Non Tender, Lungs Clear, Normal Breath Sounds, No Accessory Muscle Use, No Respiratory Distress Cardiovascular: No Edema, No JVD, Normal Peripheral Pulses, Systolic Murmur, Irregularly Irregular Gastrointestinal: Normal Bowel Sounds, Non Tender, Soft Rectal: Deferred Back: Normal Inspection, No CVA Tenderness, No Vertebral Tenderness Extremity: Normal Range of Motion, Non Tender, No Calf Tenderness Neurologic/Psychiatric: Alert, Oriented x3, No Motor/Sensory Deficits, Normal Mood/Affect Skin: Normal Color, Warm/Dry Results Results/Procedures Labs Laboratory Tests 03/10/19 03:52 Patient resulted labs reviewed. Imaging: Reviewed Imaging Report Assessment/Plan Admission Diagnosis A. fib with RVR Cough Small right pleural effusion and atelectasis Chronic low back pain Thrombocytopenia with an elevated MPV most likely secondary to platelet clumping Plan for observation rate control of his heart in consultation with cardiology. Admission Status: Observation Diagnosis/Problems Diagnosis/Problems (1) Atrial fibrillation with rapid ventricular response Status: Acute (2) Chest pain Status: Acute Qualifiers: Chest pain type: unspecified Qualified Codes: R07.9 - Chest pain, unspecified (3) Chronic back pain Status: Chronic Qualifiers: Back pain location: low back pain (4) Coronary artery disease Status: Chronic Clinical Quality Measures AMI/AHF: ASA po Prior to arrival: Yes (324 per EMS) DVT/VTE Risk/Contraindication: Risk Factor Score Per Nursin RFS Level Per Nursing on Admit: 2=Moderate SANDNESSKELLIE MD Mar 10, 2019 09:37
[2019-03-10 11:33] LABS: BILIRUBIN,URINE NEGATIVE (NEGATIVE); CLARITY,URINE CLEAR; COLOR,URINE YELLOW; GLUCOSE, URINE (UA) NEGATIVE (NEGATIVE); KETONES,URINE NEGATIVE (NEGATIVE); LEUKOCYTE ESTERASE ,URINE 1+ (NEGATIVE); NITRITE,URINE NEGATIVE (NEGATIVE); PH,URINE 5 (5-9); PROTEIN,URINE 1+ (NEGATIVE); UROBILINOGEN,URINE NORMAL (NORMAL)
[2019-03-10] MEDS: DILTIAZEM 30 MG (CARDIZEM) TAB PO SCH ×3 (11:34→23:22)
[2019-03-10 11:41] LABS: BACTERIA,URINE FEW /HPF; WBC,URINE 0-2 /HPF
--- NOTE | 2019-03-10 12:30 | NUR ---
PT TRANSFERRED TO ROOM 424 VIA WC W/ PERSONAL BELONGINGS AND NOBLE RUSSO. REPORT GIVEN TO DAVID RUSSO, NO QUESTIONS/CONCERNS VOICED.
--- NOTE | 2019-03-10 12:40 | NUR ---
REC'D FROM ICU. SEE ASSESSMENT.
--- NOTE | 2019-03-10 13:39 | Consultation-Cardiology ---
HPI-Cardiology Cardiology Consultation: Date of Consultation 03/10/19 Date of Admission Attending Physician Kellie Ly MD Admitting Physician Jessi Matthews MD Consulting Physician Delbert BRADY MD HPI: Time Seen by a Provider: 13:39 Chief Complaint: Shortness of breath This is a 83-year-old gentleman who is a patient of Dr. Winters and has history of paroxysmal atrial fibrillation, CAD/PCI. He presents with 2 days history of shortness of breath and occasional chest discomfort. He also complains of lower back pain. He is on eliquis for paroxysmal atrial fibrillation however was intolerant to beta blockers. He presented with atrial fibrillation with rapid ventricular rate with heart rate of 143 in the ER. There is a possibility of bilateral lower lobe infiltrates or atelectasis. He also complains of difficulty swallowing and is not able to eat. Review of Systems-Cardiology Review of Systems Constitutional: As described under HPI; No As described under HPI, No no symptoms reported, No chills, No fever, No lightheadedness Eyes: No As described under HPI, No no symptoms reported, No blindness, No blurred vision, No contact lenses, No drainage, No decreased acuity, No foreign body sensation, No pain, No vision change Ears/Nose/Throat: No As described under HPI, No no symptoms reported, No chronic hearing loss, No ear discharge, No ear pain, No nasal drainage, No ulcerations Respiratory: No no symptoms reported; As described under HPI; No As described under HPI, No cough, No orthopnea; shortness of breath; No SOB with excertion Cardiovascular: No no symptoms reported; As described under HPI; No As described under HPI; chest pain; No edema, No irregular heart rate, No lightheadedness, No palpitations Gastrointestinal: No no symptoms reported; As described under HPI; No abdomen distended, No abdominal pain, No blood streaked bowels, No constipation, No diarrhea, No nausea, No vomiting, No stool coloration changes Genitourinary: No As described under HPI, No burning, No dysuria, No discharge , No frequency, No flank pain, No hematuria, No urgency Skin: No rash, No skin related problems, No ulcerations Psychiatric/Neurological: No anxiety, No depression, No seizure, No focal weakness, No syncope Hematologic: No bleeding abnormalities All Other Systems Reviewed Negative Unless Noted: Yes ISQ-Dxceni-Vxprrx Hx Patient Social History Marrital Status: Employed/Student: retired Alcohol Use: Denies Use Recreational Drug Use: No Smoking Status: Never a Smoker Former smoker/When Quit: Nov 20, 1977 Recent Foreign Travel: No Recent Infectious Disease Expo: No Immunizations Up To Date Tetanus Booster (TDap): Unknown Date of Pneumonia Vaccine: Aug 20, 2012 Date of Influenza Vaccine: Aug 20, 2014 Past Medical History PMH As described under Assessment. Allergies and Home Medications Allergies Coded Allergies: codeine (Unverified Adverse Reaction, Mild, Altered taste, 02/13/15) Uncoded Allergies: statin med (Allergy, Unknown, 07/22/14) dry mouth; unable to urinate Home Medications Apixaban 5 Mg Tablet, 5 MG PO BID, (Reported) Aspirin 81 Mg Tabec, 81 MG PO DAILY, (Reported) Multivitamin 1 Each Tablet, 1 TAB PO DAILY, (Reported) Patient Home Medication List Home Medication List Reviewed: Yes Physical Exam-Cardiology Physical Exam Vital Signs/I&O 03/10/19 03/10/19 03/10/19 03/10/19 03:58 03:58 04:28 06:16 Temp 98.7 Pulse 125 116 84 Resp 16 14 14 B/P (MAP) 120/88 (99) 125/95 132/88 (103) Pulse Ox 97 100 98 O2 Delivery Room Air Nasal Cannula Room Air O2 Flow Rate 2.0 03/10/19 03/10/19 03/10/19 03/10/19 06:30 06:56 07:00 07:00 Temp 97.4 Pulse 83 75 82 Resp 12 13 B/P (MAP) 146/98 (114) 114/84 (94) Pulse Ox 96 96 95 O2 Delivery Room Air Room Air Room Air 03/10/19 03/10/19 03/10/19 03/10/19 08:00 08:00 09:00 10:00 Temp 96.9 Pulse 77 64 51 Resp 8 19 16 B/P (MAP) 116/97 (103) 101/77 (85) 103/77 (86) Pulse Ox 97 96 93 O2 Delivery Room Air Room Air Room Air 03/10/19 03/10/19 03/10/19 03/10/19 11:00 11:31 12:00 12:00 Temp 96.2 Pulse 71 67 66 Resp 19 21 B/P (MAP) 93/35 (54) 112/75 (87) Pulse Ox 97 94 O2 Delivery Room Air Room Air 03/10/19 12:40 O2 Delivery Room Air Capillary Refill : Less Than 3 Seconds Constitutional: appears stated age, AAO x 3; No apparent distress; well- developed, well-nourished HEENT: PERRL; No normal ENT inspection, No TMs normal, No pharynx normal, No scleral icterus (R), No scleral icterus (L), No pale conjunctivae (R), No pale conjunctivae (L), No photophobia, No TM abnormal (R), No TM abnormal (L), No pharyngeal erythema, No tonsillar exudate, No other, No discharge, No EOMI; hearing is well preserved; No hard of hearing; oral hygience is good; No ulceration, No xanthelasmas are seen Neck: No non-tender, No full range of motion, No supple, No normal inspection, No carotid bruit, No limited range of motion, No lymphadenopathy (R), No lymphadenopathy (L), No tender lateral, No tender midline, No thyromegaly, No other; carotid pulses are 2 + bilaterally; No with good upstrokes Respiratory: chest is bilaterally symmetric, lungs clear to auscultation Cardiovascular: No regular rate-rhythm; irregularly irregular; No extra beats, No parasternal heave is noted, No JVD, No edema, No bradycardia, No tachycardia , No point of maximal impulse, No cardiac thrills are palpable; S1 and S2; No gallop/S3, No gallop/S4, No diastolic murmur, No systolic murmur, No friction rub, No click, No other Gastrointestinal: No tender, No soft, No round, No distended, No pulsatile mass , No organomegaly, No guarding, No rebound, No tenderness, No hernia, No mass, No audible bowel sounds, No abnormal bowel sounds, No abdominal bruits, No spleenomegaly, No other Rectal: deferred Extremities: No normal range of motion, No non-tender, No normal inspection, No pedal edema, No calf tenderness, No normal capillary refill, No pelvis stable , No calf tenderness, No inflammation, No pedal edema, No slow capillary refill , No swelling, No other, No abrasion, No clubbing, No cyanosis, No ecchymosis, No laceration, No no lower extremity edema bilateral, No significant edema, No tenderness, No wound Neurologic/Psychiatric: no motor/sensory deficits, alert, normal mood/affect, oriented x 3, power is 5/5 both on sides Skin: No normal color, No warm/dry, No cyanosis, No cool, No diaphoresis, No damp, No ecchymosis, No jaundice, No mottled, No pallor, No rash, No tattoos/ piercings, No ulcerations, No rash on exposed areas, No ulcerations on exposed areas, No other Data Review Labs Laboratory Tests 03/10/19 03:02: B-Type Natriuretic Peptide 215.1H 03/10/19 03:52: White Blood Count 7.4, Red Blood Count 4.66, Hemoglobin 14.1, Hematocrit 41, Mean Corpuscular Volume 89, Mean Corpuscular Hemoglobin 30, Mean Corpuscular Hemoglobin Concent 34, Red Cell Distribution Width 15.7H, Platelet Count 121L, Mean Platelet Volume 11.4H, Neutrophils (%) (Auto) 52, Lymphocytes (%) (Auto) 37 , Monocytes (%) (Auto) 9, Eosinophils (%) (Auto) 1, Basophils (%) (Auto) 0, Neutrophils # (Auto) 3.9, Lymphocytes # (Auto) 2.7, Monocytes # (Auto) 0.7, Eosinophils # (Auto) 0.1, Basophils # (Auto) 0.0, Prothrombin Time 16.1H, INR Comment 1.2, Activated Partial Thromboplast Time 33, Sodium Level 140, Potassium Level 3.5L, Chloride Level 109H, Carbon Dioxide Level 19L, Anion Gap 12, Blood Urea Nitrogen 13, Creatinine 0.89, Estimat Glomerular Filtration Rate > 60, BUN/Creatinine Ratio 15, Glucose Level 111H, Calcium Level 9.5, Corrected Calcium 9.6, Magnesium Level 2.1, Total Bilirubin 1.3H, Aspartate Amino Transf ( AST/SGOT) 30, Alanine Aminotransferase (ALT/SGPT) 26, Alkaline Phosphatase 52, Myoglobin 64.1, Troponin I < 0.028, Total Protein 6.6, Albumin 3.9 03/10/19 10:15: Troponin I < 0.028 03/10/19 11:28: Urine Color YELLOW, Urine Clarity CLEAR, Urine pH 5, Urine Specific [place] 1.030H, Urine Protein 1+H, Urine Glucose (UA) NEGATIVE, Urine Ketones NEGATIVE, Urine Nitrite NEGATIVE, Urine Bilirubin NEGATIVE, Urine Urobilinogen NORMAL, Urine Leukocyte Esterase 1+H, Urine RBC (Auto) NEGATIVE, Urine RBC NONE, Urine WBC 0-2, Urine Crystals NONE, Urine Bacteria FEWH, Urine Casts NONE, Urine Mucus LARGEH, Urine Culture Indicated NO ECG Impression ECG Initial ECG Impression: Atrial Fibrillation w/RVR A/P-Cardiology Assessment/Admission Diagnosis Atrial fibrillation with rapid ventricular rate, CAD/PCI, Mild chronic systolic congestive heart failure, Difficulty swallowing. Plan Atrial fibrillation with rapid ventricular rate, much better controlled with Cardizem. I spoke at length about cardioversion. The patient has been on a liquid uninterrupted for at least the last one month. However we do not have an ICU room to perform cardioversion. We will readdress this tomorrow. Patient has history of CAD and stents. He had complained of chest discomfort. A CS needs to be ruled out with serial troponin. The patient may require nuclear stress test. Previous echocardiogram showed an EF of 45 percent. Patient presented with shortness of breath with mildly elevated BNP. We will repeat echocardiogram. Low-dose Lasix may be required. Thank you for your consultation. Please call me if you have any questions. Wing Brady MD, FACP, FACC, FSCAI, FHRS, CCDS Interventional Cardiology Cardiac Electrophysiology Vascular Medicine and Endovascular Interventions Clinical Quality Measures AMI/AHF: ASA po Prior to arrival: Yes (324 per EMS) DVT/VTE Risk/Contraindication: Risk Factor Score Per Nursin RFS Level Per Nursing on Admit: 2=Moderate Delbert BRADY MD Mar 10, 2019 1:39 pm
--- NOTE | 2019-03-10 13:45 | NUR ---
DR. KELLER HERE TO SEE. ECHO ORDERED. CUSTOMER LIAISON NOTIFIED. DR. KELLER TOLD PT HE COULD EAT DIET TODAY AND PT REPORTS HE CANNOT SWALLOW VERY EASILY, "EVERYTHING GETS STUCK". NPO CONTINUED.
--- NOTE | 2019-03-10 14:00 | NUR ---
DR. VALLECILLO NOTIFIED RE DIFFICULTY SWALLOWING. ORDERS TO KEEP NPO AND CONSULT DR. ADAM. DR. ADAM NOTIFIED OF CONSULTATION.
--- NOTE | 2019-03-10 15:08 | NUR ---
DR. ADAM HERE. CLEAR LIQUID DIET ORDERED AND BA SWALLOW ORDERED FOR AM. RADIOLOGY NOTIFIED AND CLARIFIED ORDER.
--- NOTE | 2019-03-10 19:49 | NUR ---
Dr. Brady contacted and asked if patient should still receive Cardizem and eliquis doses in AM due to patient being NPO after midnight for barium swallow and possible cardioversion. Dr. Brday okay with this RN to give 0600 dose of cardizem and 0900 dose of eliquis at 0600 on 03/11 with sip of water. Order read back and confirmed.
--- NOTE | 2019-03-10 20:41 | Consultation ---
History of Present Illness History of Present Illness Patient Consulted On(collette/time) 03/10/19 20:36 Date Seen by Provider: Mar 10, 2019 Time Seen by Provider: 16:09 History of Present Illness consult requested by Dr. Ly of dysphagia. Patient is an 83 year old male with recent cough and afib c rvr. Patient notes having dysphagia for about 1 week. Feels like solid food get stuck in the upper portion of esophagus. Has to eat small bites to get it to go down. Patient states he's been having this issue for several months now, but just last weeks he has seemed to complain more about it. Patient with cough and left sided chest pain. Patient states cardiology planning cardioversion tomorrow. Allergies and Home Medications Allergies Coded Allergies: codeine (Unverified Adverse Reaction, Mild, Altered taste, 02/13/15) Uncoded Allergies: statin med (Allergy, Unknown, 07/22/14) dry mouth; unable to urinate Home Medications Apixaban 5 Mg Tablet, 5 MG PO BID, (Reported) Aspirin 81 Mg Tabec, 81 MG PO DAILY, (Reported) Multivitamin 1 Each Tablet, 1 TAB PO DAILY, (Reported) Patient Home Medication List Home Medication List Reviewed: Yes Past Dndmacs-Naxtrz-Xjqrlt Hx Patient Social History Alcohol Use: Denies Use Recreational Drug Use: No Smoking Status: Never a Smoker Recent Foreign Travel: No Contact w/Someone Who Travel: No Recent Infectious Disease Expo: No Recent Hopitalizations: No Immunizations Up To Date Tetanus Booster (TDap): Unknown PED Vaccines UTD: No Date of Pneumonia Vaccine: Aug 20, 2012 Date of Influenza Vaccine: Aug 20, 2014 Seasonal Allergies Seasonal Allergies: No Surgeries History of Surgeries: Yes (Cardiac stent x 2) Surgeries: Coronary Stent, Orthopedic Respiratory History of Respiratory Disorde: No Cardiovascular History of Cardiac Disorders: Yes (Cardiac stent X2 ) Cardiac Disorders: Deep Vein Thrombosis, Heart Attack, High Cholesterol, Hypertension Neurological History of Neurological Disord: No Neurological Disorders: Vertigo Reproductive System Hx Reproductive Disorders: No Genitourinary History of Genitourinary Disor: Yes Genitourinary Disorders: Benign Prostatic Hyperpl Gastrointestinal History of Gastrointestinal Di: No Musculoskeletal History of Musculoskeletal Dis: Yes (FX L WRIST) Musculoskeletal Disorders: Chronic Back Pain Endocrine History of Endocrine Disorders: No HEENT History of HEENT Disorders: No Cancer History of Cancer: No Psychosocial History of Psychiatric Problem: No Behavioral Health Disorders: Anxiety Integumentary History of Skin or Integumenta: No Blood Transfusions History of Blood Disorders: No Adverse Reaction to a Blood Tr: No Family Medical History Significant Family History: No Pertinent Family Hx Review of Systems-General Constitutional: no symptoms reported EENTM: see HPI Respiratory: see HPI, cough Cardiovascular: see HPI Gastrointestinal: see HPI Genitourinary: no symptoms reported Musculoskeletal: no symptoms reported Skin: no symptoms reported Psychiatric/Neurological: No Symptoms Reported Physical Exam-General Problems Physical Exam Vital Signs Vital Signs - First Documented 03/10/19 03:58 Temp 98.7 Pulse 125 Resp 16 B/P (MAP) 120/88 (99) Pulse Ox 97 O2 Delivery Room Air O2 Flow Rate 2.0 Capillary Refill : Less Than 3 SecondsLess Than 3 Seconds General Appearance: no apparent distress HEENT: PERRL/EOMI, normal ENT inspection Neck: non-tender, supple Respiratory: chest non-tender, no respiratory distress, no accessory muscle use Cardiovascular: regular rate, rhythm Gastrointestinal: non tender, soft, no organomegaly, no pulsatile mass Back: normal inspection, no CVA tenderness Extremities: non-tender, no pedal edema Neurologic/Psychiatric: alert, normal mood/affect, oriented x 3 Skin: normal color, warm/dry Lymphatic: no adenopathy Data Review Labs Laboratory Tests 03/10/19 03:02: B-Type Natriuretic Peptide 215.1H 03/10/19 03:52: White Blood Count 7.4, Red Blood Count 4.66, Hemoglobin 14.1, Hematocrit 41, Mean Corpuscular Volume 89, Mean Corpuscular Hemoglobin 30, Mean Corpuscular Hemoglobin Concent 34, Red Cell Distribution Width 15.7H, Platelet Count 121L, Mean Platelet Volume 11.4H, Neutrophils (%) (Auto) 52, Lymphocytes (%) (Auto) 37 , Monocytes (%) (Auto) 9, Eosinophils (%) (Auto) 1, Basophils (%) (Auto) 0, Neutrophils # (Auto) 3.9, Lymphocytes # (Auto) 2.7, Monocytes # (Auto) 0.7, Eosinophils # (Auto) 0.1, Basophils # (Auto) 0.0, Prothrombin Time 16.1H, INR Comment 1.2, Activated Partial Thromboplast Time 33, Sodium Level 140, Potassium Level 3.5L, Chloride Level 109H, Carbon Dioxide Level 19L, Anion Gap 12, Blood Urea Nitrogen 13, Creatinine 0.89, Estimat Glomerular Filtration Rate > 60, BUN/Creatinine Ratio 15, Glucose Level 111H, Calcium Level 9.5, Corrected Calcium 9.6, Magnesium Level 2.1, Total Bilirubin 1.3H, Aspartate Amino Transf ( AST/SGOT) 30, Alanine Aminotransferase (ALT/SGPT) 26, Alkaline Phosphatase 52, Myoglobin 64.1, Troponin I < 0.028, Total Protein 6.6, Albumin 3.9 03/10/19 10:15: Troponin I < 0.028 03/10/19 11:28: Urine Color YELLOW, Urine Clarity CLEAR, Urine pH 5, Urine Specific [place] 1.030H, Urine Protein 1+H, Urine Glucose (UA) NEGATIVE, Urine Ketones NEGATIVE, Urine Nitrite NEGATIVE, Urine Bilirubin NEGATIVE, Urine Urobilinogen NORMAL, Urine Leukocyte Esterase 1+H, Urine RBC (Auto) NEGATIVE, Urine RBC NONE, Urine WBC 0-2, Urine Crystals NONE, Urine Bacteria FEWH, Urine Casts NONE, Urine Mucus LARGEH, Urine Culture Indicated NO Assessment/Plan Assessment/Plan Assessment/Plan afib rvr dysphagia patient on anticoagulation would likely benefit from egd in outpatient setting so can come of anticoagulation for procedure, will get barium swallow to eval at this time. started on protonix will follow. Clinical Quality Measures AMI/AHF: ASA po Prior to arrival: Yes (324 per EMS) DVT/VTE Risk/Contraindication: Risk Factor Score Per Nursin RFS Level Per Nursing on Admit: 2=Moderate TD ADAM DO Mar 10, 2019 20:41
[2019-03-10] MEDS ORDERED: APIXABAN 5 MG (ELIQUIS) TABLET PO SCH (21:00)
[2019-03-11] VITALS (11 sets, daily range): BP systolic 120–149; BP diastolic 66–96
[2019-03-11 04:51] LABS: CHOLESTEROL 137 MG/DL (< 200); CREATINE KINASE 14 U/L (30-200); HDL CHOLESTEROL 44 MG/DL (40-60); TRIGLYCERIDES 86 MG/DL (<150); VLDL CHOLESTEROL 17 MG/DL (5-40)
[2019-03-11] MEDS: DILTIAZEM 30 MG (CARDIZEM) TAB PO SCH ×2 (05:31→13:02)
[2019-03-11] MEDS: APIXABAN 5 MG (ELIQUIS) TABLET PO SCH (05:31)
[2019-03-11] MEDS ORDERED: PANTOPRAZOLE 40 MG (PROTONIX) TAB PO SCH (09:00)
[2019-03-11] MEDS ORDERED: FINASTERIDE (PROSCAR) 5 MG TAB PO SCH (09:00)
[2019-03-11] MEDS ORDERED: ASPIRIN E.C. 81 MG (ECOTRIN) TAB PO SCH (09:00)
[2019-03-11] MEDS: ASPIRIN E.C. 81 MG (ECOTRIN) TAB PO SCH (09:00)
[2019-03-11] MEDS ORDERED: MULT-642 PO (09:36)
[2019-03-11] MEDS ORDERED: NAPR220C11 PO (09:36)
[2019-03-11] MEDS ORDERED: ASPI-983 PO (09:36)
[2019-03-11] MEDS ORDERED: LIDO76.53 TP (09:36)
--- NOTE | 2019-03-11 09:37 | NUR ---
SPOKE WITH THE PATIENT ABOUT HIS MEDICATIONS. HE WAS ABLE TO LIST EXACTLY WHAT HE TAKES. I VERIFIED THE PRESCRIPTION WITH TERESA ZENG. TERESA FILLED: 02-18-19 FINASTERIDE 5MG DAILY #90 HE STATES HE TAKES ELIQUIS 5MG BID - HE STATES THIS COMES FROM THE [facility]. OTC: ASPIRIN 81MG DAILY AT NOON [facility] DAILY AT [facility]
[2019-03-11] MEDS ORDERED: BARIUM SUSPENSION 60% (LIQUID EZ PAQUE) 240 ML DOSE PO ONE (10:30)
[2019-03-11] MEDS ORDERED: BARIUM SUSPENSION 105% (LIQUID POLIBAR PLUS) 240 ML/DOSE PO ONE (10:30)
--- NOTE | 2019-03-11 10:50 | Diagnostic Imaging Report ---
Indication: Difficulty swallowing. Patient ingested effervescent crystals as well as thin and thick barium and imaging of the esophagus was performed. 1 minute 36 seconds of fluoroscopy was utilized. Preliminary radiograph does show some mild bibasilar infiltrates or atelectasis as well as multilevel kyphoplasty changes. There appears to be a diverticulum arising anteriorly and to the left of the upper esophagus near the cervicothoracic junction. The remainder of the esophagus is unremarkable. No mass or stricture is seen. No gastroesophageal reflux or hiatal hernia is identified. Occasional tertiary contractions are noted. Impression: Upper cervical esophageal diverticulum. No other significant abnormality is seen. Dictated by: Dictated on workstation # [id number]
--- NOTE | 2019-03-11 12:58 | NUR ---
Patient to [facility] [facility] [employer] for cardioversion with [facility] [facility] staff.
[2019-03-11] MEDS ORDERED: proPOfol 200 MG/20 ML (DIPRIVAN) VIAL IV ONE (13:04)
--- NOTE | 2019-03-11 13:41 | Anesthesia-Procedure Note ---
Procedures/Interventions Procedure Start/Stop/Diagnosis Date of Procedure: Mar 11, 2019 Start Time: 13:18 Referring Physician: Jose Antonio Preprocedural Diagnosis: Atrial Fibrillation Brief History Called to cardiology for scheduled cardioversion for A-Fib requested by Dr. Brady. Brief hx NPO status verified. Airway equipment at bedside. O2 per NC at 4lpm. Pt received a total of 70 mg propofol incrementally. Cardioversion completed without incident. Report to RN VSS, pt opening eyes to command. Stop Time: 13:25 Postprocedural Diagnosis: Atrial Fibrillation EMY WEBSTER CRNA Mar 11, 2019 13:41
--- NOTE | 2019-03-11 15:01 | Cardioversion ---
Cardioversion PROCEDURE PHYSICIAN: Wing Brady MD DATE OF PROCEDURE: 03/11/19 DIRECT EXTERNAL ELECTRICAL CARDIOVERSION: Indications: Atrial Fibrillation with rapid ventricular rate Preoperative diagnoses: Atrial Fibrillation with rapid ventricular rate Postoperative diagnosis: Sinus rhythm, Successful Electrical Cardioversion History: AF with RVR. Anesthesia: By Anesthesia services Complications: None Specimen: None Contrast: 0 Flouroscopy: none Procedure Details: The patient was brought the [facility] after informed consent was taken, all the risks and complications were explained including the risk of stroke. Electrical cardioversion was carried out with anesthesia support with propofol. 200 joules of synchronized shock was delivered through external patches which promptly restored sinus rhythm, however, he went back in to AF. Therefore, total three shocks were delivered. After the third shock, the patient stayed in sinus rhythm with frequent PACs and PVCs. The patient tolerated the procedure well. Conclusions: 1.Successful Cardioversion. 2.Continue oral anticoagulation and rate controlling agent. 3.Follow up with Dr Winters. Wing Brady MD, [facility], CCDS Cardiac Electrophysiology Delbert BRADY MD Mar 11, 2019 15:01
--- NOTE | 2019-03-11 15:11 | Progress Note-Hospitalist ---
Progress Note Progress Notes/Assess & Plan Date Seen 03/11/19 Time Seen by Provider: 12:50 Assessment & Plan Patient out of the room for procedure. SADA PARK MD Mar 11, 2019 15:11
[2019-03-11] MEDS ORDERED: SUCR1TAB36 PO (15:43)
[2019-03-11] MEDS ORDERED: PANT40SU PO (15:43)
[2019-03-11] MEDS ORDERED: DILT120C82 PO (16:13)
--- NOTE | 2019-03-11 16:18 | NUR ---
TAJ ELKINS JR demonstrates understanding of discharge instructions and accurately returns instructions upon questioning. Copy of Post-Discharge Instructions and Medication Discharge Instructions given to patient and . TAJ ELKINS JR is able to manage continuing needs after discharge. Patients belongings returned to patient. Skin dry and intact; no breakdown noted. Patient discharged from [facility] on 03/11/19 at 1618 . TAJ ELKINS JR left floor via wheelchair, accompanied by and family.
--- NOTE | 2019-03-11 16:52 | Cardiology Progress Note ---
Cardiology SOAP Progress Note Subjective: Improved symptoms. Objective: I&O/Vital Signs 03/11/19 03/11/19 03/11/19 03/11/19 07:00 07:34 09:00 12:12 Temp 98.6 98.9 Pulse 106 97 92 Resp 20 20 B/P (MAP) 129/73 (91) 126/72 (90) Pulse Ox 92 94 O2 Delivery Room Air Room Air Room Air 03/11/19 03/11/19 03/11/19 03/11/19 13:05 13:05 13:10 13:20 Pulse 107 108 87 Resp 20 20 20 B/P (MAP) 149/96 (113) 123/88 (100) 149/70 (96) Pulse Ox 94 98 94 94 O2 Delivery Nasal Cannula Nasal Cannula Nasal Cannula Nasal Cannula O2 Flow Rate 3.00 2.00 3.00 3.00 FiO2 23 03/11/19 03/11/19 03/11/19 13:30 14:00 15:27 Temp 98.2 Pulse 86 72 65 Resp B/P (MAP) 137/81 (99) 136/71 (92) 146/68 (94) Pulse Ox 94 94 95 O2 Delivery Room Air Room Air Room Air 03/11/19 00:00 Intake Total 1200 ml Output Total 100 ml Balance 1100 ml Weight (Pounds): 172 Weight (Ounces): 2.0 Weight (Calculated Kilograms): [id number] Constitutional: appears stated age, AAO x 3; No apparent distress; well- developed, well-nourished Respiratory: chest is bilaterally symmetric, lungs clear to auscultation Cardiovascular: No regular rate-rhythm; irregularly irregular; No extra beats, No parasternal heave is noted, No JVD, No edema, No bradycardia, No tachycardia , No point of maximal impulse, No cardiac thrills are palpable; S1 and S2; No gallop/S3, No gallop/S4, No diastolic murmur, No systolic murmur, No friction rub, No click, No other Gastrointestional: No tender, No soft, No round, No distended, No pulsatile mass, No organomegaly, No guarding, No rebound, No tenderness, No hernia, No mass, No audible bowel sounds, No abnormal bowel sounds, No abdominal bruits, No spleenomegaly, No other Extremities: No normal range of motion, No non-tender, No normal inspection, No pedal edema, No calf tenderness, No normal capillary refill, No pelvis stable , No calf tenderness, No inflammation, No pedal edema, No slow capillary refill , No swelling, No other, No abrasion, No clubbing, No cyanosis, No ecchymosis, No laceration, No no lower extremity edema bilateral, No significant edema, No tenderness, No wound Neurologic/Psychiatric: no motor/sensory deficits, alert, normal mood/affect, oriented x 3, power is 5/5 both on sides Skin: No normal color, No warm/dry, No cyanosis, No cool, No diaphoresis, No damp, No ecchymosis, No jaundice, No mottled, No pallor, No rash, No tattoos/ piercings, No ulcerations, No rash on exposed areas, No ulcerations on exposed areas, No other Results/Procedures: Labs Laboratory Tests 03/11/19 04:10: Total Creatine Kinase 14L, Triglycerides Level 86, Cholesterol Level 137, LDL Cholesterol Direct 82, VLDL Cholesterol 17, HDL Cholesterol 44 Microbiology 03/10/19 MRSA Screen - Final, Complete MRSA not isolated A/P: Assessment/Dx: Atrial fibrillation with rapid ventricular rate, CAD/PCI, Mild chronic systolic congestive heart failure, Difficulty swallowing. Plan: Atrial fibrillation with rapid ventricular rate, much better controlled with Cardizem. Cardioversion today. Patient has history of CAD and stents. He had complained of chest discomfort. ACS ruled out with serial negative troponin. The patient may require nuclear stress test. Will be scheduled as an outpatient with Dr. Winters. Previous echocardiogram showed an EF of 45 percent. Patient presented with shortness of breath with mildly elevated BNP. We will repeat echocardiogram. Low-dose Lasix may be required. Echocardiogram 03/11/2019 shows EF of 35-40 percent. Moderate to severe mitral regurgitation. Pulmonary hypertension. Will defer to Dr. Winters. Thank you for your consultation. Please call me if you have any questions. Wing Brady MD, FACP, FACC, FSCAI, FHRS, CCDS Interventional Cardiology Cardiac Electrophysiology Vascular Medicine and Endovascular Interventions Clinical Quality Measures AMI/AHF: ASA po Prior to arrival: Yes (324 per EMS) Delbert BRADY MD Mar 11, 2019 4:52 pm
--- NOTE | 2019-03-11 20:25 | Progress Note ---
Subjective Date Seen by a Provider: Mar 11, 2019 Time Seen by a Provider: 15:24 Subjective/Events-last exam Patient swallowing a little easier today. Wanting to go home. No new complaints. Had barium swallow suggestive of diverticulum. Denies n/v fever sweats chills shortness of breath or chest pain at this time. Objective Exam Vital Signs Date Time Temp Pulse Resp B/P (MAP) Pulse Ox O2 Delivery O2 Flow Rate FiO2 03/11/19 16:55 65 22 146/68 95 Room Air 3.00 03/11/19 15:27 98.2 65 22 146/68 (94) 95 Room Air 03/11/19 14:00 72 20 136/71 (92) 94 Room Air 03/11/19 13:30 86 20 137/81 (99) 94 Room Air 03/11/19 13:20 87 20 149/70 (96) 94 Nasal Cannula 3.00 03/11/19 13:10 108 20 123/88 (100) 94 Nasal Cannula 3.00 03/11/19 13:05 98 Nasal Cannula 2.00 23 03/11/19 13:05 107 20 149/96 (113) 94 Nasal Cannula 3.00 03/11/19 12:12 98.9 92 20 126/72 (90) 94 Room Air 03/11/19 09:00 Room Air 03/11/19 07:34 98.6 97 20 129/73 (91) 92 Room Air 03/11/19 07:00 106 03/11/19 04:00 98.9 93 18 125/66 (85) 95 Room Air 03/11/19 01:00 82 03/11/19 00:05 97.6 75 18 120/72 (88) 97 Room Air 03/10/19 21:00 Room Air I & O 03/11/19 07:00 Intake Total 1270 ml Output Total 225 ml Balance 1045 ml Capillary Refill : Less Than 3 SecondsLess Than 3 Seconds General Appearance: No Apparent Distress, WD/WN HEENT: PERRL/EOMI, Normal ENT Inspection Neck: Normal Inspection, Non Tender, Supple Respiratory: Chest Non Tender, No Accessory Muscle Use, No Respiratory Distress Cardiovascular: No Edema, No JVD, Normal Peripheral Pulses, Irregularly Irregular Gastrointestinal: non tender, soft, no organomegaly, no pulsatile mass Extremity: Normal Range of Motion, Non Tender, No Calf Tenderness Neurologic/Psychiatric: Alert, Oriented x3, No Motor/Sensory Deficits, Normal Mood/Affect Skin: Normal Color, Warm/Dry Lymphatic: No Adenopathy Results Lab Laboratory Tests 03/11/19 04:10: Total Creatine Kinase 14L, Triglycerides Level 86, Cholesterol Level 137, LDL Cholesterol Direct 82, VLDL Cholesterol 17, HDL Cholesterol 44 Microbiology 03/10/19 MRSA Screen - Final, Complete MRSA not isolated Assessment/Plan Assessment/Plan Assessment/Plan afib rvr dysphagia esophageal diverticulum patient on anticoagulation would likely benefit from egd in outpatient setting so can come of anticoagulation for procedure and to evaluate for diverticulum call in protonix and carafate swallowing better f/u 2 weeks since being discharge and see how swallowing doing. instructed on diet to try and avoid difficulties. Clinical Quality Measures AMI/AHF: ASA po Prior to arrival: Yes (324 per EMS) DVT/VTE Risk/Contraindication: Risk Factor Score Per Nursin RFS Level Per Nursing on Admit: 2=Moderate TD ADAM DO Mar 11, 2019 20:25
[2019-03-12] MEDS ORDERED: DILT120C82 PO (12:07)
--- NOTE | 2019-03-14 17:16 | Physician Query-Final Dx ---
Final Diagnosis Give Final Diagnosis Please give Final Diagnosis PEGGY JONES Mar 14, 2019 17:15
== END 2019-03-11 16:18 | disposition home or self-care (01) | DRG 309 ==
LOC: EDUNIT# 03:49 → ER 03:51 → ICU 05:33 → UNDOADMOB 05:33 → ICU 06:27 → 4TH 12:52 → OBSVTOIN 13:12 → INTOOBSV 13:12 → UNDODISIN 03-11 16:18
PROVIDERS: ADMIT Internal Medicine; ATTEND Internal Medicine
PROC: 5A2204Z Restoration of Cardiac Rhythm, Single (ICD-10-PCS; principal; 2019-03-11)
DX: I48.0 Paroxysmal atrial fibrillation (principal); I11.0 Hypertensive heart disease with heart failure; I50.22 Chronic systolic (congestive) heart failure; R13.10 Dysphagia, unspecified; K22.5 Diverticulum of esophagus, acquired; I25.10 Atherosclerotic heart disease of native coronary artery without angina pectoris; I34.0 Nonrheumatic mitral (valve) insufficiency; I27.20 Pulmonary hypertension, unspecified; E78.00 Pure hypercholesterolemia, unspecified; D69.6 Thrombocytopenia, unspecified; F41.9 Anxiety disorder, unspecified; N40.0 Benign prostatic hyperplasia without lower urinary tract symptoms; R42 Dizziness and giddiness; M54.5 Low back pain; G89.29 Other chronic pain; I25.2 Old myocardial infarction; Z86.718 Personal history of other venous thrombosis and embolism; Z95.5 Presence of coronary angioplasty implant and graft; Z79.01 Long term (current) use of anticoagulants
CPT/HCPCS: 36415; 71045; 74220; 80053; 80061; 81000; 82550; 83735; 83874; 83880; 84484; 85025; 85610; 85730; 87081; 92960; 93005; 93041; 93306; 94664; 96365; 96366; 96375; G0378

== ENCOUNTER 2019-03-12 10:20 | Emergency (ER) | payer MEDICARE, OTHER ==
[~2019-03-12] VITALS: Ht 188 cm; Wt 73.9 kg
[~2019-03-12 10:20] MED LIST changes: +ASPI-983 PO; +DILT120C82 PO; +LIDO76.53 TP; +MULT-642 PO; +NAPR220C11 PO; +PANT40SU PO; +SUCR1TAB36 PO
--- NOTE | 2019-03-12 10:34 | ED Cardiac General ---
History of Present Illness General Stated Complaint: SOA Source: patient, EMS, RN notes reviewed, old records Exam Limitations: no limitations History of Present Illness Date Seen by Provider: Mar 12, 2019 Time Seen by Provider: 10:31 Initial Comments Patient presents via EMS c/ c/o being a little SOA this AM. Patient just released from here yesterday p/ being cardioverted out of atrial fib. Reports not picking up his Cardizem yet. EMS found patient to be back in atrial fib c/ RVR. Denies any associated chest pain. No other complaints. 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 Associated Systoms: No Chest Pain, No Diaphoresis, No Fever/Chills, No Nausea/ Vomiting; Shortness of Air (mild) Allergies and Home Medications Allergies Coded Allergies: Foczzxt-Rlw-Uvv Reductase Inhibitor (Unverified Allergy, Unknown, 03/12/19) codeine (Unverified Adverse Reaction, Mild, Altered taste, 02/13/15) Home Medications Apixaban 5 Mg Tablet, 5 MG PO BID, (Reported) Aspirin 81 Mg Tablet.dr, 81 MG PO 1200, (Reported) Diltiazem HCl 120 Mg Cap.er.24h, 120 MG PO DAILY Prescribed by: MELISSA HUTTON on 03/11/19 1613 Diltiazem HCl 120 Mg Cap.er.24h, 120 MG PO DAILY Prescribed by: DANIELITO CURTIS on 03/12/19 1207 Finasteride 5 Mg Tablet, 5 MG PO HS, (Reported) Lidocaine HCl/Menthol 76.5 Gm Cream..g., TP HS, (Reported) Multivitamin 1 Each Tablet, 1 TAB PO 1200, (Reported) Naproxen Sodium 220 Mg Capsule, 220 MG PO HS, (Reported) Pantoprazole Sodium 40 Mg Granpkt.dr, 40 MG PO DAILY Prescribed by: MELISSA HUTTON on 03/11/19 154 Sucralfate 1 Gm Tablet, 1 GM PO QID Prescribed by: MELISSA HUTTON on 03/11/19 1543 Patient Home Medication List Home Medication List Reviewed: Yes Review of Systems Review of Systems Constitutional: see HPI Respiratory: See HPI, SOA at Rest All Other Systems Reviewed Negative Unless Noted: Yes (Negative excepted noted.) Past Kodjqta-Lnwqyc-Haqfwt Hx Patient Social History Recent Hopitalizations: No Immunizations Up To Date Tetanus Booster (TDap): Unknown PED Vaccines UTD: No Date of Pneumonia Vaccine: Aug 20, 2012 Date of Influenza Vaccine: Aug 20, 2014 Seasonal Allergies Seasonal Allergies: No Past Medical History Surgeries: Yes (Cardiac stent x 2) Coronary Stent, Orthopedic Respiratory: No Cardiac: Yes (Cardiac stent X2 ) Deep Vein Thrombosis, Heart Attack, High Cholesterol, Hypertension Neurological: No Vertigo Reproductive Disorders: No Genitourinary: Yes Benign Prostatic Hyperpl Gastrointestinal: No Musculoskeletal: Yes (FX L WRIST) Chronic Back Pain Endocrine: No HEENT: No Cancer: No Psychosocial: No Anxiety Integumentary: No Blood Disorders: No Adverse Reaction/Blood Tranf: No Family Medical History No Pertinent Family Hx Physical Exam Vital Signs Vital Signs - First Documented 03/12/19 10:21 Temp 97.6 Pulse 135 Resp 32 B/P (MAP) 124/97 (106) Pulse Ox 96 O2 Delivery Nasal Cannula O2 Flow Rate 2.00 Capillary Refill : Height, Weight, BMI Height: 6'2.50" Weight: 172lbs. 2.0oz. 78.174885bs; 21.0 BMI Method:Estimated General Appearance: No Apparent Distress, WD/WN Respiratory: No Respiratory Distress Cardiovascular: Irregularly Irregular, Tachycardia Rectal: Deferred Neurologic/Psychiatric: Alert, Oriented x3, No Motor/Sensory Deficits, Normal Mood/Affect Skin: Warm/Dry Progress/Results/Core Measures Results/Orders Lab Results Laboratory Tests Test 03/12/19 10:26 Range/Units White Blood Count 6.3 4.3-11.0 10^3/uL Red Blood Count 4.50 4.35-5.85 10^6/uL Hemoglobin 13.8 13.3-17.7 G/DL Hematocrit 40 40-54 % Mean Corpuscular Volume 90 80-99 FL Mean Corpuscular Hemoglobin 31 25-34 PG Mean Corpuscular Hemoglobin Concent 34 32-36 G/DL Red Cell Distribution Width 15.8 H 10.0-14.5 % Platelet Count 106 L 130-400 10^3/uL Mean Platelet Volume 11.1 H 7.4-10.4 FL Neutrophils (%) (Auto) 61 42-75 % Lymphocytes (%) (Auto) 27 12-44 % Monocytes (%) (Auto) 11 0-12 % Eosinophils (%) (Auto) 1 0-10 % Basophils (%) (Auto) 0 0-10 % Neutrophils # (Auto) 3.8 1.8-7.8 X 10^3 Lymphocytes # (Auto) 1.7 1.0-4.0 X 10^3 Monocytes # (Auto) 0.7 0.0-1.0 X 10^3 Eosinophils # (Auto) 0.1 0.0-0.3 10^3/uL Basophils # (Auto) 0.0 0.0-0.1 10^3/uL Sodium Level 140 135-145 MMOL/L Potassium Level 3.6 3.6-5.0 MMOL/L Chloride Level 111 H 98-107 MMOL/L Carbon Dioxide Level 21 21-32 MMOL/L Anion Gap 8 5-14 MMOL/L Blood Urea Nitrogen 9 7-18 MG/DL Creatinine 0.72 0.60-1.30 MG/DL Estimat Glomerular Filtration Rate > 60 BUN/Creatinine Ratio 13 Glucose Level 113 H 70-105 MG/DL Calcium Level 8.9 8.5-10.1 MG/DL Corrected Calcium 9.2 8.5-10.1 MG/DL Magnesium Level 2.1 1.8-2.4 MG/DL Total Bilirubin 1.2 H 0.1-1.0 MG/DL Aspartate Amino Transf (AST/SGOT) 39 H 5-34 U/L Alanine Aminotransferase (ALT/SGPT) 24 0-55 U/L Alkaline Phosphatase 48 40-136 U/L Troponin I < 0.028 <0.028 NG/ML B-Type Natriuretic Peptide 412.8 H <100.0 PG/ML Total Protein 6.3 L 6.4-8.2 GM/DL Albumin 3.6 3.2-4.5 GM/DL My Orders Orders - DANIELITO CURTIS DO Troponin I (03/12/19 10:31) Chest 1 View, Ap/Pa Only (03/12/19 10:31) Ekg Tracing (03/12/19 10:31) Monitor-Rhythm Ecg Trace Only (03/12/19 10:31) Cbc With Automated Diff (03/12/19 10:31) Comprehensive Metabolic Panel (03/12/19 10:31) Diltiazem Injection (Cardizem Injection) (03/12/19 10:45) BNP (03/12/19 10:34) Magnesium (03/12/19 10:34) Diltiazem Cd 24 Hr Capsule (Cardizem Cd (03/12/19 11:48) Apixaban Tablet (Eliquis Tablet) (03/12/19 12:00) Medications Given in ED Current Medications Medications Dose Ordered Sig/Adelfo Route Start Time Stop Time Status Last Admin Dose Admin Diltiazem HCl 10 mg ONCE ONCE IVP 03/12/19 10:45 03/12/19 10:46 DC 03/12/19 11:20 10 MG Vital Signs/I&O 03/12/19 10:21 Temp 97.6 Pulse 135 Resp 32 B/P (MAP) 124/97 (106) Pulse Ox 96 O2 Delivery Nasal Cannula O2 Flow Rate 2.00 Progress Progress Note : Progress Note States feels better p/ we got his heart rate slowed down. Discussed patient c/ Dr. Brady and he requested we get and keep his rate down and then allow him to go home and follow up with him in the office this week. Went ahead and dosed him here c/ today's dose of Cardizem. He reports he already took his Eliquis. Initial ECG Impression Date: Mar 12, 2019 Initial ECG Impression Time: 10:29 Initial ECG Rate: 141 Initial ECG Rhythm: A Fib/Flutter Initial ECG Impression: Atrial Fibrillation w/RVR Initial ECG Comparisson: No Previous ECG Available Departure Impression Primary Impression: Paroxysmal atrial fibrillation with RVR Disposition: 01 HOME, SELF-CARE Condition: Improved Departure-Patient Inst. Decision time for Depature: 12:04 Referrals: Delbert BRADY MD, WEN-CHOU MD (PCP/Family) Primary Care Physician Patient Instructions: Atrial Fibrillation (DC) Add. Discharge Instructions: BEGIN YOUR CARDIZEM 120 mg IN AM, 03/13. DR. BRADY WANTS TO SEE YOU LATER THIS WEEK IN HIS OFFICE. CALL TODAY FOR AN APPOINTMENT. Scripts Diltiazem HCl (Cardizem Cd) 120 Mg Cap.er.24h 120 MG PO DAILY, #30 CAP 0 Refills Prov: DANIELITO CURTIS DO 03/12/19 DANIELITO CURTIS DO Mar 12, 2019 10:34
[2019-03-12] MEDS ORDERED: DILTIAZEM 25 MG/5 ML INJ (CARDIZEM) VIAL IVP ONE (10:45)
[2019-03-12 10:50] LABS: BASOPHILS % (AUTO) 0 % (0-10); EOSINOPHILS # (AUTO) 0.1 10^3/uL (0.0-0.3); EOSINOPHILS % (AUTO) 1 % (0-10); HEMATOCRIT 40 % (40-54); HEMOGLOBIN 13.8 G/DL (13.3-17.7); LYMPHOCYTES # (AUTO) 1.7 X 10^3 (1.0-4.0); LYMPHOCYTES % (AUTO) 27 % (12-44); MEAN CORPUSCULAR HEMOGLOBIN 31 PG (25-34); MEAN CORPUSCULAR HGB CONC 34 G/DL (32-36); MEAN CORPUSCULAR VOLUME 90 FL (80-99); MEAN PLATELET VOLUME 11.1 FL (7.4-10.4); MONOCYTES # (AUTO) 0.7 X 10^3 (0.0-1.0); MONOCYTES % (AUTO) 11 % (0-12); NEUTROPHILS # (AUTO) 3.8 X 10^3 (1.8-7.8); NEUTROPHILS % (AUTO) 61 % (42-75); PLATELET COUNT 106 10^3/uL (130-400); RED CELL DISTRIBUTION WIDTH 15.8 % (10.0-14.5); WHITE BLOOD COUNT 6.3 10^3/uL (4.3-11.0)
--- OUTSIDE RECORDS SUMMARY | 2019-03-12 10:54 | XMS REPORT | Continuity of Care Document ---
Author Organization Unknown Address Unknown Allergies Active Description Code Type Severity Reaction Onset Reported/Identified Relationship to Patient Clinical Status Yes NO KNOWN DRUG ALLERGIES NO KNOWN DRUG ALLERG UNKNOWN Yes NO KNOWN DRUG ALLERGIES UNKNOWN NO KNOWN DRUG ALLERG Yes NKANo Known Allergies NKA Miscellaneous Allergy Mild N/A 04/01/2009 Yes statin med statin med Unknown N/A 07/22/2014 Yes codeine [id number] Drug Allergy Mild Altered taste 02/13/2015 Medications Medication Packaging Start Date Stop Date Route Dosage Sig HYDROCODONE/APAP 5MG/325MG TAB 5 MG/325MG (HAILY-TAB 5/325) TAB 03/18/2017 03/18/2017 ONCE&1053 DEXAMETHASONE VIAL INJ 10 MG/CC (DECADRON VIAL) MG 03/18/2017 03/18/2017 ONCE&1053 Problems Date Dx Coded Attending Type Code Diagnosis Diagnosed By 11/27/2012 Ot 719.06 JOINT EFFUSION-L/LEG 11/27/2012 Ot 959.7 LOWER LEG INJURY NOS 11/27/2012 Ot E000.8 OTHER EXTERNAL CAUSE STATUS 11/27/2012 Ot E849.0 ACCIDENT IN HOME 11/27/2012 Ot E927.0 OVEREXERTION FROM SUDDEN STRENUOUS MOVEM 04/10/2013 MALA DALTON MD Ot 211.4 BENIGN NEOPL RECTUM/ANUS 04/10/2013 MALA DALTON MD Ot V76.51 SCREEN MAL NEOP-COLON 08/02/2013 LA NENA TOMPKINS MD Ot 272.4 HYPERLIPIDEMIA NEC/NOS 08/02/2013 LA NENA TOMPKINS MD Ot 276.8 HYPOPOTASSEMIA 08/02/2013 LA NENA TOMPKINS MD Ot 401.9 HYPERTENSION NOS 08/02/2013 LA NENA TOMPKINS MD Ot 412 OLD MYOCARDIAL INFARCT 08/02/2013 LA NENA TOMPKINS MD Ot 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 08/02/2013 LA NENA TOMPKINS MD Ot 427.31 ATRIAL FIBRILLATION 08/02/2013 LA NENA TOMPKINS MD Ot 564.00 UNSPEC CONSTIPATION 08/02/2013 LA NENA TOMPKINS MD Ot 600.00 HYPERTROPHY (BENIGN) OF PROSTATE W/O URI 08/02/2013 LA NENA TOMPKINS MD Ot 787.01 NAUSEA WITH VOMITING 08/02/2013 LA NENA TOMPKINS MD Ot 789.00 ABDOMINAL PAIN, UNSPECIFIED SITE 08/02/2013 LA NENA TOMPKINS MD Ot 789.39 ABDOMINAL/PELVIC SWELLING,MASS/LUMP, OTH 08/02/2013 LA NENA TOMPKINS MD Ot V15.82 HISTORY OF TOBACCO USE 08/02/2013 LA NENA TOMPKINS MD Ot V45.82 PERCUTANEOUS TRANSLUM CORON ANGIOPLASTY 11/03/2013 CHANTE PENNINGTON AC/DC REWINDER Ot 427.31 ATRIAL FIBRILLATION 11/03/2013 CHANTE PENNINGTON AC/DC REWINDER Ot 553.1 UMBILICAL HERNIA 11/03/2013 CHANTE PENNINGTON AC/DC REWINDER Ot 793.4 NOSP (ABN) FINDINGS ON RADIOLOGICAL OT 12/18/2013 CAITLYN SANTILLAN RAILROAD AUDITOR Ot 427.31 ATRIAL FIBRILLATION 03/31/2014 CAITLYN SANTILLAN RAILROAD AUDITOR Ot 427.31 ATRIAL FIBRILLATION 05/20/2014 AGUILA ROMANO FACC, UZIEL FACP CCDS Ot 272.4 HYPERLIPIDEMIA NEC/NOS 05/20/2014 AGUILA ROMANO FACC, UZIEL FACP CCDS Ot 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 05/20/2014 AGUILA ROMANO FACC, UZIEL FACP CCDS Ot 414.4 CORONARY ATHEROSCLEROSIS DUE TO CALCIFIE 05/20/2014 UZIEL SHEEHAN MD, FACC FACP CCDS Ot 427.31 ATRIAL FIBRILLATION 05/20/2014 UZIEL SHEEHAN MD, FACC FACP CCDS Ot 780.4 DIZZINESS AND GIDDINESS 05/20/2014 AGUILA ROMANO FACC, UZIEL FACP CCDS Ot 786.09 RESPIRATORY ABNORM NEC 05/20/2014 AGUILA ROMANO FACC, UZIEL FACP CCDS Ot V45.82 PERCUTANEOUS TRANSLUM CORON ANGIOPLASTY 05/20/2014 UZIEL SHEEHAN MD, FACC FACP CCDS Ot V58.61 ANTICOAGULANTS,LT,CURRENT USE 05/20/2014 UZIEL SHEEHAN MD, FACC FACP CCDS Ot V58.69 OTH MED,LT,CURRENT USE 07/16/2014 LANDEN LUCAS AC/DC REWINDER Ot 719.43 JOINT PAIN-FOREARM 07/16/2014 LANDEN LUCAS AC/DC REWINDER Ot 814.00 FX CARPAL BONE NOS-CLOSE 07/16/2014 LANDEN LUCAS AC/DC REWINDER Ot E000.8 OTHER EXTERNAL CAUSE STATUS 07/16/2014 LANDEN LUCAS AC/DC REWINDER Ot E927.0 OVEREXERTION FROM SUDDEN STRENUOUS MOVEM 07/21/2014 CAITLYN SANTILLAN RAILROAD AUDITOR Ot 427.31 ATRIAL FIBRILLATION 07/22/2014 LANDEN LUCAS AC/DC REWINDER Ot 412 OLD MYOCARDIAL INFARCT 07/22/2014 LANDEN LUCAS AC/DC REWINDER Ot 724.2 LUMBAGO 07/22/2014 LANDEN LUCAS AC/DC REWINDER Ot 789.09 ABDOMINAL PAIN, OTHER SPECIFIED SITE 07/22/2014 LANDEN LUCAS AC/DC REWINDER Ot V58.61 ANTICOAGULANTS,LT,CURRENT USE 07/22/2014 LANDEN LUCAS AC/DC REWINDER Ot V58.69 OTH MED,LT,CURRENT USE 10/13/2014 BAIMACAITLYN L RAILROAD AUDITOR Ot 427.31 10/22/2014 BAIMA CAITLYN L RAILROAD AUDITOR Ot 427.31 ATRIAL FIBRILLATION 11/04/2014 BAIMA CAITLYN L RAILROAD AUDITOR Ot 427.31 11/04/2014 BAIMA, CAITLYN L RAILROAD AUDITOR Ot 427.31 11/05/2014 BAIMA, CAITLYN L RAILROAD AUDITOR Ot 427.31 11/08/2014 BAIMA, CAITLYN L RAILROAD AUDITOR Ot 427.31 11/08/2014 BAIMA, CAITLYN L RAILROAD AUDITOR Ot 427.31 12/13/2014 SADA PARK MD Ot 564.00 UNSPEC CONSTIPATION 12/13/2014 SADA PARK MD Ot 724.2 LUMBAGO 12/13/2014 SADA PARK MD Ot V58.61 ANTICOAGULANTS,LT,CURRENT USE 12/18/2014 BAIMA CAITLYN L RAILROAD AUDITOR Ot 427.31 01/04/2015 AXEL GUERRIER DOA K Ot 724.2 LUMBAGO 01/04/2015 JUAN GUERRIER DO Ot 805.4 FX LUMBAR VERTEBRA-CLOSE 01/04/2015 JUAN GUERRIER DO Ot E000.8 OTHER EXTERNAL CAUSE STATUS 01/04/2015 JUAN GUERRIER DO Ot E927.0 OVEREXERTION FROM SUDDEN STRENUOUS MOVEM 02/02/2015 BAICAITLYN ACOSTA L RAILROAD AUDITOR Ot 427.31 ATRIAL FIBRILLATION 02/13/2015 Ot 427.31 02/13/2015 Ot 553.1 02/13/2015 Ot 793.4 02/13/2015 Ot 427.31 02/13/2015 LANDEN LUCAS AC/DC REWINDER Ot 719.45 JOINT PAIN-PELVIS 02/13/2015 LANDEN LUCAS AC/DC REWINDER Ot 724.2 LUMBAGO 03/18/2017 Landen Lucas 716.26 ALLERGIC ARTHRITIS INVOLVING LOWER LEG 03/18/2017 Landen Lucas 719.06 EFFUSION OF LOWER LEG JOINT 03/18/2017 Landen Lucas M13.861 OTHER SPECIFIED ARTHRITIS, RIGHT KNEE 03/18/2017 Landen Lucas M25.461 EFFUSION, RIGHT KNEE 10/23/2017 GLENNY ABREU MD, Ot B35.4 TINEA CORPORIS 10/23/2017 GLENNY ABREU MD Ot E78.00 PURE HYPERCHOLESTEROLEMIA, UNSPECIFIED 10/23/2017 GLENNY ABREU MD, Ot F41.9 ANXIETY DISORDER, UNSPECIFIED 10/23/2017 GLENNY ABREU MD Ot I10 ESSENTIAL (PRIMARY) HYPERTENSION 10/23/2017 GLENNY ABREU MD Ot I25.2 OLD MYOCARDIAL INFARCTION 10/23/2017 GLENNY ABREU MD Ot I48.91 UNSPECIFIED ATRIAL FIBRILLATION 10/23/2017 GLENNY ABREU MD Ot K59.00 CONSTIPATION, UNSPECIFIED 10/23/2017 GLENNY ABREU MD Ot K62.89 OTHER SPECIFIED DISEASES OF ANUS AND REC 10/23/2017 GLENNY ABREU MD Ot N40.0 BENIGN PROSTATIC HYPERPLASIA WITHOUT LOW 10/23/2017 GLENNY ABREU MD Ot Z79.01 [employer] EXP[employer] (CURRENT) USE OF ANTICOAGULANT 10/23/2017 GLENNY ABREU MD Ot Z79.82 GROUP HOME (CURRENT) USE OF ASPIRIN 10/23/2017 GLENNY ABREU MD, Ot Z86.718 PERSONAL HISTORY OF OTHER VENOUS THROMBO 10/23/2017 GLENNY ABREU MD Ot Z95.5 PRESENCE OF CORONARY ANGIOPLASTY IMPLANT 10/23/2017 Ot 272.4 HYPERLIPIDEMIA NEC/NOS 10/23/2017 Ot 414.00 CORON ATHEROSCLER NOS TYPE VESSEL, NATIV 10/23/2017 Ot V58.69 OTH MED,LT, CURRENT USE 10/23/2017 Ot 414.00 CORON ATHEROSCLER NOS TYPE VESSEL, NATIV 10/23/2017 Ot 429.3 CARDIOMEGALY 10/23/2017 Ot 786.09 RESPIRATORY ABNORM NEC 10/23/2017 Ot 414.00 CORON ATHEROSCLER NOS TYPE VESSEL, NATIV 10/23/2017 Ot 425.4 PRIM CARDIOMYOPATHY NEC 10/23/2017 Ot 786.09 RESPIRATORY ABNORM NEC 10/23/2017 Ot 272.4 HYPERLIPIDEMIA NEC/NOS 10/23/2017 Ot 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 10/23/2017 Ot 272.4 HYPERLIPIDEMIA NEC/NOS 10/23/2017 Ot V58.69 OTH MED,LT, CURRENT USE 10/23/2017 MALA DALTON MD Ot Z02.84 EXAM PRE-OPERATIVE NOS 10/23/2017 BAIMA CAITLYN L RAILROAD AUDITOR Ot 272.4 HYPERLIPIDEMIA NEC/NOS 10/23/2017 BAIMA CAITLYN L RAILROAD AUDITOR Ot 272.4 HYPERLIPIDEMIA NEC/NOS 10/23/2017 Ot 427.31 ATRIAL FIBRILLATION 10/23/2017 Ot 553.1 UMBILICAL HERNIA 10/23/2017 Ot 793.4 NOSP (ABN) FINDINGS ON RADIOLOGICAL OT 10/23/2017 Ot 427.31 ATRIAL FIBRILLATION 10/27/2017 Foster Cantu 791.9 OTHER NONSPECIFIC FINDINGS ON EXAMINATION OF URINE 10/27/2017 Foster Cantu R82.99 OTHER ABNORMAL FINDINGS IN URINE 01/09/2018 Ot 414.00 CORON ATHEROSCLER NOS TYPE VESSEL, NATIV 01/09/2018 Ot 429.3 CARDIOMEGALY 01/09/2018 Ot 786.09 RESPIRATORY ABNORM NEC 01/09/2018 Ot 414.00 CORON ATHEROSCLER NOS TYPE VESSEL, NATIV 01/09/2018 Ot 425.4 PRIM CARDIOMYOPATHY NEC 01/09/2018 Ot 786.09 RESPIRATORY ABNORM NEC 01/09/2018 Ot 272.4 HYPERLIPIDEMIA NEC/NOS 01/09/2018 Ot 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 01/09/2018 Ot 272.4 HYPERLIPIDEMIA NEC/NOS 01/09/2018 Ot V58.69 OTH MED,LT, CURRENT USE 01/09/2018 MALA DALTON MD Ot V7.84 EXAM PRE-OPERATIVE NOS 01/09/2018 BAIMA, CAITLYN L RAILROAD AUDITOR Ot 272.4 HYPERLIPIDEMIA NEC/NOS 01/09/2018 BAIMA, CAITLYN L RAILROAD AUDITOR Ot 272.4 HYPERLIPIDEMIA NEC/NOS 01/09/2018 Ot 427.31 ATRIAL FIBRILLATION 01/09/2018 Ot 553.1 UMBILICAL HERNIA 01/09/2018 Ot 793.4 NOSP (ABN) FINDINGS ON RADIOLOGICAL OT 01/09/2018 Ot 427.31 ATRIAL FIBRILLATION 01/09/2018 Ot 414.00 CORON ATHEROSCLER NOS TYPE VESSEL, NATIV 01/09/2018 Ot 429.3 CARDIOMEGALY 01/09/2018 Ot 786.09 RESPIRATORY ABNORM NEC 01/09/2018 Ot 414.00 CORON ATHEROSCLER NOS TYPE VESSEL, NATIV 01/09/2018 Ot 425.4 PRIM CARDIOMYOPATHY NEC 01/09/2018 Ot 786.09 RESPIRATORY ABNORM NEC 01/09/2018 Ot 272.4 HYPERLIPIDEMIA NEC/NOS 01/09/2018 Ot 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 01/09/2018 Ot 272.4 HYPERLIPIDEMIA NEC/NOS 01/09/2018 Ot V58.69 OT MED,LT, CURRENT USE 01/09/2018 SHA ROMANO, MALA Ot V72.84 EXAM PRE-OPERATIVE NOS 01/09/2018 BAIDAVE CAITLYN L RAILROAD AUDITOR Ot 272.4 HYPERLIPIDEMIA NEC/NOS 01/09/2018 BAIMA CAITLYN L RAILROAD AUDITOR Ot 272.4 HYPERLIPIDEMIA NEC/NOS 01/09/2018 Ot 427.31 ATRIAL FIBRILLATION 01/09/2018 Ot 553.1 UMBILICAL HERNIA 01/09/2018 Ot 793.4 NOSP (ABN) FINDINGS ON RADIOLOGICAL OT 01/09/2018 Ot 427.31 ATRIAL FIBRILLATION 01/11/2018 TOMAS VEGA DO Ot 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 Results Test Result Range Uric Acid - 03/18/17 10:43 Uric Acid 4.4 mg/dL 2.6-7.2 Comprehensive Metabolic Panel - 03/18/17 10:43 Albumin 3.8 g/dL 3.6-5.1 ALP 65 U/L 35-130 ALT 12 U/L 6-45 Anion Gap 16 6-14 AST 16 U/L 2-40 BUN 9 mg/dL 5-25 Calcium 9.5 mg/dL 8.3-10.4 Chloride 104 mmol/L 95-114 CO2 21 mEq/L 22-33 Creat 0.85 mg/dL 0.50-1.50 eGFR 87 mL/min/1.73m2 >59 Globulin 3.5 g/dL 2.3-3.5 Glucose 141 mg/dL 70-110 Osmo 284 280-295 Potassium 3.5 mmol/L 3.5-5.3 Sodium 137 mmol/L 134-148 TBil 0.7 mg/dL 0.2-1.2 TP 7.3 g/dL 6.0-8.3 Synovial Fluid Cell Count - 03/18/17 10:55 Synovial Fluid Appearance Pale Yellow Synovial Fluid Clarity CLOUDY Synovial Fluid Lymphocyte 1 % 0-15 Synovial Fluid Monocytes 7 % >60 Synovial Fluid Neutrophil 92 % 0-25 Synovial Fluid RBC 438 Cells/uL Synovial Fluid WBC 58214 Cells/uL 0-200 Other Culture - 03/18/17 10:55 PRELIM CULTURE RESULTS No Growth 24 hours FINAL CULTURE RESULTS No Growth 48 hours MEDIA PLATED Setup at 10:58 03/18/2017 Crystal,Synovial/Joint Fl - 03/18/17 10:55 CRYSTAL,SYNOVIAL/JOINT FL NOTE: NONE SEEN Complete urinalysis with reflex to culture - 10/23/17 19:44 Urine color determination YELLOW NRG Urine clarity determination CLEAR NRG Urine pH measurement by test strip 5 5-9 Specific gravity of urine by test strip 1.025 1.016- 1.022 Urine protein assay by test strip, semi-quantitative NEGATIVE NEGATIVE Urine glucose detection by automated test strip NEGATIVE NEGATIVE Erythrocytes detection in urine sediment by light microscopy NEGATIVE NEGATIVE Urine ketones detection by automated test strip NEGATIVE NEGATIVE Urine nitrite detection by test strip NEGATIVE NEGATIVE Urine total bilirubin detection by test strip NEGATIVE NEGATIVE Urine urobilinogen measurement by automated test strip (mass/volume) NORMAL NORMAL Urine leukocyte esterase detection by dipstick NEGATIVE NEGATIVE Automated urine sediment erythrocyte count by microscopy (number/high power field) NONE NRG Automated urine sediment leukocyte count by microscopy (number/high power field ) NONE NRG Bacteria detection in urine sediment by light microscopy NONE NRG Squamous epithelial cells detection in urine sediment by light microscopy 0-2 NRG Crystals detection in urine sediment by light microscopy NONE NRG Casts detection in urine sediment by light microscopy NONE NRG Mucus detection in urine sediment by light microscopy NEGATIVE NRG Complete urinalysis with reflex to culture NO NRG Urinalysis - 10/27/17 15:23 Icotest N/A Negative Urine Crystals Calcium Oxalate Urine Volume Urine Volume Sufficient (10mL) Urine-Appearance Clear Clear Urine-Bilirubin Negative Negative Urine-Blood Negative Negative Urine-Color Yellow Colorless-Lt. Yellow Urine-Epithelial Cells 0-5/HPF Urine-Glucose Negative Negative Urine-Ketones Trace Negative Urine-Leukocytes Negative Negative Urine-Nitrite Positive Negative Urine-pH 6.5 5-8.5 Urine-Protein Negative Negative Urine-Specific Mcgehee 1.020 1.000-1.030 Urine-WBC 0-2/HPF Urobilinogen 0.2 E.U./dL 0.2-1.0 Serum or plasma lithium measurement (moles/volume) - 03/10/19 03:02 BNP level 215.1 pg/mL <100.0 Complete blood count (CBC) with automated white blood cell (WBC) differential - 03/10/19 03:52 Blood leukocytes automated count (number/volume) 7.4 10*3/uL 4.3-11.0 Blood erythrocytes automated count (number/volume) 4.66 10*6/uL 4.35-5.85 Venous blood hemoglobin measurement (mass/volume) 14.1 g/dL 13.3-17.7 Blood hematocrit (volume fraction) 41 % 40-54 Automated erythrocyte mean corpuscular volume 89 [foz_us] 80-99 Automated erythrocyte mean corpuscular hemoglobin (mass per erythrocyte) 30 pg 25-34 Automated erythrocyte mean corpuscular hemoglobin concentration measurement ( mass/volume) 34 g/dL 32-36 Automated erythrocyte distribution width ratio 15.7 % 10.0-14.5 Automated blood platelet count (count/volume) 121 10*3/uL 130-400 Automated blood platelet mean volume measurement 11.4 [foz_us] 7.4-10.4 Automated blood neutrophils/100 leukocytes 52 % 42-75 Automated blood lymphocytes/100 leukocytes 37 % 12-44 Blood monocytes/100 leukocytes 9 % 0-12 Automated blood eosinophils/100 leukocytes 1 % 0-10 Automated blood basophils/100 leukocytes 0 % 0-10 Blood neutrophils automated count (number/volume) 3.9 10*3 1.8-7.8 Blood lymphocytes automated count (number/volume) 2.7 10*3 1.0-4.0 Blood monocytes automated count (number/volume) 0.7 10*3 0.0-1.0 Automated eosinophil count 0.1 10*3/uL 0.0-0.3 Automated blood basophil count (count/volume) 0.0 10*3/uL 0.0-0.1 PT panel in platelet poor plasma by coagulation assay - 03/10/19 03:52 Prothrombin time (PT) in platelet poor plasma by coagulation assay 16.1 s 12.2-14.7 INR in platelet poor plasma or blood by coagulation assay 1.2 0.8-1.4 Activated partial thromboplastin time (aPTT) in platelet poor plasma bycoagulation assay - 03/10/19 03:52 Activated partial thromboplastin time (aPTT) in platelet poor plasma bycoagulation assay 33 s 24-35 Comprehensive metabolic panel - 03/10/19 03:52 Serum or plasma sodium measurement (moles/volume) 140 mmol/L 135-145 Serum or plasma potassium measurement (moles/volume) 3.5 mmol/L 3.6-5.0 Serum or plasma chloride measurement (moles/volume) 109 mmol/L 98-107 Carbon dioxide 19 mmol/L 21-32 Serum or plasma anion gap determination (moles/volume) 12 mmol/L 5-14 Serum or plasma urea nitrogen measurement (mass/volume) 13 mg/dL 7-18 Serum or plasma creatinine measurement (mass/volume) 0.89 mg/dL 0.60-1.30 Serum or plasma urea nitrogen/creatinine mass ratio 15 NRG Serum or plasma creatinine measurement with calculation of estimated glomerular filtration rate > NRG Serum or plasma glucose measurement (mass/volume) 111 mg/dL 70-105 Serum or plasma calcium measurement (mass/volume) 9.5 mg/dL 8.5-10.1 Serum or plasma total bilirubin measurement (mass/volume) 1.3 mg/dL 0.1-1.0 Serum or plasma alkaline phosphatase measurement (enzymatic activity/volume) 52 U/L 40-136 Serum or plasma aspartate aminotransferase measurement (enzymatic activity/ volume) 30 U/L 5-34 Serum or plasma alanine aminotransferase measurement (enzymatic activity/volume ) 26 U/L 0-55 Serum or plasma protein measurement (mass/volume) 6.6 g/dL 6.4-8.2 Serum or plasma albumin measurement (mass/volume) 3.9 g/dL 3.2-4.5 CALCIUM CORRECTED 9.6 mg/dL 8.5-10.1 Magnesium - 03/10/19 03:52 Magnesium 2.1 mg/dL 1.8-2.4 Serum or plasma troponin i.cardiac measurement (mass/volume) - 03/10/19 03:52 Serum or plasma troponin i.cardiac measurement (mass/volume) < ng/ mL <0.028 Myoglobin, serum - 03/10/19 03:52 Myoglobin, serum 64.1 ng/mL 10.0-92.0 Methicillin resistant Staphylococcus aureus (MRSA) screening culture - 06:40 Methicillin resistant Staphylococcus aureus (MRSA) screening culture NEG NRG Serum or plasma troponin i.cardiac measurement (mass/volume) - 03/10/19 10:15 Serum or plasma troponin i.cardiac measurement (mass/volume) < ng/ mL <0.028 Complete urinalysis with reflex to culture - 03/10/19 11:28 Urine color determination YELLOW NRG Urine clarity determination CLEAR NRG Urine pH measurement by test strip 5 5-9 Specific gravity of urine by test strip 1.030 1.016- 1.022 Urine protein assay by test strip, semi-quantitative 1+ NEGATIVE Urine glucose detection by automated test strip NEGATIVE NEGATIVE Erythrocytes detection in urine sediment by light microscopy NEGATIVE NEGATIVE Urine ketones detection by automated test strip NEGATIVE NEGATIVE Urine nitrite detection by test strip NEGATIVE NEGATIVE Urine total bilirubin detection by test strip NEGATIVE NEGATIVE Urine urobilinogen measurement by automated test strip (mass/volume) NORMAL NORMAL Urine leukocyte esterase detection by dipstick 1+ NEGATIVE Automated urine sediment erythrocyte count by microscopy (number/high power field) NONE NRG Automated urine sediment leukocyte count by microscopy (number/high power field ) [HPF] NRG Bacteria detection in urine sediment by light microscopy FEW NRG Crystals detection in urine sediment by light microscopy NONE NRG Casts detection in urine sediment by light microscopy NONE NRG Mucus detection in urine sediment by light microscopy LARGE NRG Complete urinalysis with reflex to culture NO NRG Serum or plasma creatine kinase measurement (enzymatic activity/volume) - 03/11 04:10 Serum or plasma creatine kinase measurement (enzymatic activity/volume) 14 U/L 30-200 Lipid 1996 panel - 03/11/19 04:10 Serum or plasma triglyceride measurement (mass/volume) 86 mg/dL <150 Serum or plasma cholesterol measurement (mass/volume) 137 mg/dL < 200 Serum or plasma cholesterol in HDL measurement (mass/volume) 44 mg/ dL 40-60 Cholesterol in LDL [mass/volume] in serum or plasma by direct assay 82 mg/dL 1-129 Serum or plasma cholesterol in VLDL measurement (mass/volume) 17 mg/ dL 5-40 Complete blood count (CBC) with automated white blood cell (WBC) differential - 03/12/19 10:26 Blood leukocytes automated count (number/volume) 6.3 10*3/uL 4.3-11.0 Blood erythrocytes automated count (number/volume) 4.50 10*6/uL 4.35-5.85 Venous blood hemoglobin measurement (mass/volume) 13.8 g/dL 13.3-17.7 Blood hematocrit (volume fraction) 40 % 40-54 Automated erythrocyte mean corpuscular volume 90 [foz_us] 80-99 Automated erythrocyte mean corpuscular hemoglobin (mass per erythrocyte) 31 pg 25-34 Automated erythrocyte mean corpuscular hemoglobin concentration measurement ( mass/volume) 34 g/dL 32-36 Automated erythrocyte distribution width ratio 15.8 % 10.0-14.5 Automated blood platelet count (count/volume) 106 10*3/uL 130-400 Automated blood platelet mean volume measurement 11.1 [foz_us] 7.4-10.4 Automated blood neutrophils/100 leukocytes 61 % 42-75 Automated blood lymphocytes/100 leukocytes 27 % 12-44 Blood monocytes/100 leukocytes 11 % 0-12 Automated blood eosinophils/100 leukocytes 1 % 0-10 Automated blood basophils/100 leukocytes 0 % 0-10 Blood neutrophils automated count (number/volume) 3.8 10*3 1.8-7.8 Blood lymphocytes automated count (number/volume) 1.7 10*3 1.0-4.0 Blood monocytes automated count (number/volume) 0.7 10*3 0.0-1.0 Automated eosinophil count 0.1 10*3/uL 0.0-0.3 Automated blood basophil count (count/volume) 0.0 10*3/uL 0.0-0.1 Encounters ACCT No. Visit Date/Time Discharge Status Pt. Type Provider Facility Loc./Unit Complaint [id number] 03/10/2019 13:12:00 03/11/2019 16:18:00 DIS Inpatient AVEL ROMANO, MARISSA Mandujano [facility] 4TH AFIB WITH RVR, CHEST PAIN [id number] 01/11/2018 13:31:00 01/11/2018 14:19:00 DIS Outpatient SHAWNCOLTONTOMAS SHEFFIELD DO [facility] CARD 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 [id number] 10/23/2017 16:48:00 10/23/2017 21:10:00 DIS Emergency LOIS ROMANO, GLENNY Mccabe [facility] ER CONSTIPATION/RECTAL PAIN [id number] 02/13/2015 11:28:00 02/13/2015 13:00:00 DIS Emergency LANDEN LUCAS APRN [facility] ER LEFT HIP PAIN [id number] 01/04/2015 12:07:00 01/04/2015 14:15:00 DIS Emergency JUAN GUERRIER DO [facility] ER BACK PAIN [id number] 01/02/2015 08:32:00 01/02/2015 23:59:59 CLS Outpatient CAITLYN SANTILLAN [facility] LAB PAF [id number] 12/13/2014 13:12:00 12/13/2014 16:08:00 DIS Emergency VIVIAN ROMANO, SADA Conteh [facility] ER BACK PAIN [id number] 10/08/2014 08:09:00 10/22/2014 00:01:00 DIS Outpatient CAITLYN SANTILLAN [facility] LAB PAF [id number] 07/22/2014 15:21:00 07/22/2014 18:06:00 DIS Emergency LANDEN LUCAS APRN [facility] ER R UPPER BACK PAIN [id number] 06/24/2014 08:29:00 07/21/2014 00:01:00 DIS Outpatient BAICAITLYN ACOSTA RAILROAD AUDITOR [facility] LAB PAF [id number] 07/16/2014 13:20:00 07/16/2014 14:42:00 DIS Emergency LANDEN LUCAS APRN [facility] ER LEFT WRIST INJURY [id number] 05/20/2014 12:54:00 05/20/2014 20:00:00 DIS Outpatient AGUILA ROMANO FACC, UZIEL SIERRA CCDS [facility] CATH VERTIGO HYPERLIPIDEMIA CORONARY ARTERY DISEASE [id number] 02/24/2014 08:12:00 03/31/2014 00:01:00 DIS Outpatient BAICAITLYN ACOSTA RAILROAD AUDITOR [facility] LAB PAF [id number] 10/08/2013 08:19:00 12/18/2013 00:01:00 DIS Outpatient CAITLYN SANTILLANP [facility] LAB PAF [id number] 08/05/2013 12:38:00 11/03/2013 00:01:00 DIS Outpatient CHANTE PENNINGTON APRN [facility] RAD ATRIAL FIB,ABNORMAL ABDOMENTAL CT [id number] 10/21/2013 08:29:00 10/21/2013 23:59:59 CLS Outpatient CAITLYN SANTILLANP [facility] LAB HLP [id number] 08/02/2013 01:20:00 08/02/2013 15:25:00 DIS Inpatient LA NENA TOMPKINS MD [facility] 4TH INTRACTABLE ABD BACK PAIN;TRANSIENT AFIB;HTN;EL [id number] 05/02/2013 08:20:00 05/02/2013 23:59:59 CLS Outpatient BAICAITLYN ACOSTA RAILROAD AUDITOR [facility] LAB HYPERLIPIDEMIA [id number] 04/10/2013 07:53:00 04/10/2013 11:20:00 DIS Outpatient MALA DALTON MD [facility] SDC SCREENING [id number] 04/03/2013 07:27:00 04/03/2013 23:59:59 CLS Outpatient MALA DALTON MD [facility] PREOP SCREENING [id number] 03/12/2019 10:51:00 Document Registration [id number] 02/13/2015 11:42:00 Document Registration [id number] 11/04/2013 13:45:00 Document Registration [id number] 02/04/2013 08:04:00 Document Registration [id number] 01/24/2013 09:15:00 Document Registration [id number] 12/27/2012 10:17:00 Document Registration [id number] 11/27/2012 12:08:00 Document Registration [id number] 09/17/2012 08:27:00 Document Registration [id number] 06/26/2012 06:40:00 Document Registration [id number] 02/13/2015 16:05:36 ACT Document Registration [id number] 04/05/2018 16:06:00 04/05/2018 23:59:00 DIS Outpatient LA NENA LEGER [id number] 10/27/2017 15:00:00 10/27/2017 16:10:00 DIS Outpatient Foster Cantu [id number] 03/18/2017 10:25:00 03/18/2017 12:14:00 DIS [place] [facility] [place] [id number] 03/18/2017 11:05:55 Document Registration
[2019-03-12 11:05] LABS: ALANINE AMINOTRANSFERASE 24 U/L (0-55); ALBUMIN 3.6 GM/DL (3.2-4.5); ALKALINE PHOSPHATASE 48 U/L (40-136); BILIRUBIN,TOTAL 1.2 MG/DL (0.1-1.0); BUN/CREATININE RATIO 13; CALCIUM 8.9 MG/DL (8.5-10.1); CARBON DIOXIDE 21 MMOL/L (21-32); CHLORIDE 111 MMOL/L (98-107); CREATININE SERUM 0.72 MG/DL (0.60-1.30); GFR ESTIMATED > 60; GLUCOSE 113 MG/DL (70-105); MAGNESIUM 2.1 MG/DL (1.8-2.4); POTASSIUM 3.6 MMOL/L (3.6-5.0); SODIUM 140 MMOL/L (135-145); TOTAL PROTEIN 6.3 GM/DL (6.4-8.2)
[2019-03-12] MEDS ORDERED: DILTIAZEM 120 MG (CARDIZEM CD) CAP PO STA (11:48)
[2019-03-12] MEDS ORDERED: APIXABAN 5 MG (ELIQUIS) TABLET PO ONE (12:00)
[2019-03-12] MEDS ORDERED: DILT120C82 PO (12:07)
--- NOTE | 2019-03-12 12:15 | Diagnostic Imaging Report ---
EXAMINATION: Portable erect AP chest at 1152 hours. INDICATION: Respiratory distress. FINDINGS: The appearance of the chest has worsened somewhat since 03/10/2019 as the atelectasis/infiltrate and fluid involving the left lung base is somewhat greater. The right lower lobe atelectasis/infiltrate and fluid noted on the prior study is essentially unchanged. The upper lungs remain clear. The heart is enlarged but stable. The mediastinum is not widened. The osseous structures are intact. IMPRESSION: The appearance of the chest has worsened somewhat since the prior exam as there has been an increase in the atelectasis/infiltrate and fluid in the left lung base. A followup study would be recommended for continued evaluation. Dictated by: Dictated on workstation # [id number]
[2019-03-12 12:18] VITALS: BP 113/74
== END 2019-03-12 12:18 | disposition home or self-care (01) ==
LOC: EDUNIT# 10:21 → ER 10:22
DX: I48.0 Paroxysmal atrial fibrillation (principal); I25.2 Old myocardial infarction; E78.00 Pure hypercholesterolemia, unspecified; I10 Essential (primary) hypertension; F41.9 Anxiety disorder, unspecified; Z87.448 Personal history of other diseases of urinary system; Z88.8 Allergy status to other drugs, medicaments and biological substances; Z88.5 Allergy status to narcotic agent; Z79.01 Long term (current) use of anticoagulants; Z79.82 Long term (current) use of aspirin; Z95.5 Presence of coronary angioplasty implant and graft; Z86.718 Personal history of other venous thrombosis and embolism
CPT/HCPCS: 36415; 71045; 80053; 83735; 83880; 84484; 85025; 93005; 93041

== ENCOUNTER 2019-12-11 05:40 | Outpatient (CLI) | payer MEDICARE, OTHER ==
[~2019-12-11] VITALS: Ht 188 cm; Wt 65.0 kg
[2019-12-11] MEDS ORDERED: DILT180C54 PO (14:26)
== END 2019-12-11 14:41 | disposition home or self-care (01) ==
LOC: PREOP 05:40
PROVIDERS: ATTEND Surgery
DX: Z01.818 Encounter for other preprocedural examination (principal)

== ENCOUNTER 2020-04-06 17:29 | Inpatient (IN) | payer MEDICARE, OTHER ==
[2020-04-06] VITALS (7 sets, daily range): BP systolic 106–145; BP diastolic 80–97
[~2020-04-06] VITALS: Ht 188 cm; Wt 68.3 kg
[~2020-04-06 17:29] MED LIST changes: +DILT180C54 PO
[2020-04-06] MEDS ORDERED: NS IV 500 ML 500 ML IV ONE (17:52)
--- NOTE | 2020-04-06 17:59 | ED Chest Pain ---
General Chief Complaint: Cardiac/General Problems Stated Complaint: A-FIB Source: patient Exam Limitations: no limitations (JAY VEGA) History of Present Illness Date Seen by Provider: April 06, 2020 Time Seen by Provider: 17:45 Initial Comments The patient presents to the ER by EMS from home with chief complaint of feeling nervous palpitations fluttering shaking movement in his chest since this morning off and on. He says he is not having any shakiness in his hands or anywhere else. He has a history of atrial fibrillation in the past. He takes a medicine for his heart from Dr. Wintres but he does not ever the name for it. He takes Eliquis for blood thinner because of A. fib. He does take aspirin daily as well as a multivitamin. He's not had any syncopal episodes, falls, chest pain but he does get some shortness of breath and has occasionally had a cough for the past day. No fevers or chills. The cough is nonproductive. (JAY VEGA) Allergies and Home Medications Allergies Coded Allergies: Xwqxfrj-Tkp-Blo Reductase Inhibitor (Unverified Allergy, Unknown, 03/12/19) codeine (Unverified Adverse Reaction, Mild, Altered taste, 02/13/15) Home Medications Apixaban 5 Mg Tablet, 5 MG PO BID, (Reported) Aspirin 81 Mg Tablet.dr, 81 MG PO 1200, (Reported) Diltiazem HCl Unknown Strength Cap.er.24h, 1 CAP PO BID, (Reported) Lidocaine HCl/Menthol 76.5 Gm Cream..g., TP HS, (Reported) Multivitamin 1 Each Tablet, 1 TAB PO 1200, (Reported) Patient Home Medication List Home Medication List Reviewed: Yes (JAY VEGA) Review of Systems Review of Systems Constitutional: No chills, No diaphoresis EENTM: No Blurred Vision, No Double Vision Respiratory: Cough, Shortness of Air Cardiovascular: Denies Chest Pain, Denies Edema; Irregular Heart Rate; Denies Lightheadedness; Palpitations; Denies Syncope Gastrointestinal: Denies Abdomen Distended, Denies Abdominal Pain Genitourinary: Denies Burning, Denies Discharge Musculoskeletal: No back pain, No joint pain Psychiatric/Neurological: Denies Anxiety, Denies Depressed (JAY VEGA) All Other Systems Reviewed Negative Unless Noted: Yes (JAY VEGA) Past Lcrijig-Aprlse-Fakpet Hx Patient Social History Alcohol Use: Denies Use Smoking Status: Former Smoker Former Smoker, Quit: Dec 11, 1977 Recent Hopitalizations: No (JAY VEGA) Immunizations Up To Date Tetanus Booster (TDap): Unknown PED Vaccines UTD: No Date of Pneumonia Vaccine: Aug 20, 2012 Date of Influenza Vaccine: Aug 20, 2019 (JAY VEGA) Seasonal Allergies Seasonal Allergies: No (JAY VEGA) Past Medical History Surgeries: Yes (Cardiac stent x 2) Coronary Stent, Orthopedic Respiratory: No Cardiac: Yes (Cardiac stent X2 ) Atrial Fibrillation, Deep Vein Thrombosis, Heart Attack, High Cholesterol, Hype rtension Neurological: Yes Vertigo Reproductive Disorders: No Genitourinary: Yes Benign Prostatic Hyperpl Gastrointestinal: No Polyps Musculoskeletal: Yes (FX L WRIST) Chronic Back Pain Endocrine: No HEENT: No Cancer: No Psychosocial: Yes Anxiety Integumentary: No Blood Disorders: No Adverse Reaction/Blood Tranf: No (JAY VEGA) Family Medical History No Pertinent Family Hx (JAY VEGA) Physical Exam Vital Signs Vital Signs - First Documented 04/06/20 17:37 Temp 36.8 Pulse 126 Resp 18 B/P (MAP) 148/96 (113) Pulse Ox 98 O2 Delivery Room Air (NICOLETTE LARSEN MD) Vital Signs Capillary Refill : (JAY VEGA) Height, Weight, BMI Height: 6'2.00" Weight: 163lbs. 2.0oz. 73.834884bu; 18.39 BMI Method:Stated General Appearance: No Apparent Distress, WD/WN HEENT: PERRL/EOMI; No Moist Mucous Membranes Neck: Full Range of Motion, Normal Inspection Respiratory: Lungs Clear, Normal Breath Sounds, No Accessory Muscle Use, No Respiratory Distress Cardiovascular: No Edema, Normal Peripheral Pulses, Irregularly Irregular, Tachycardia Gastrointestinal: Non Tender, Soft Extremity: Normal Capillary Refill, Normal Inspection, No Pedal Edema Neurologic/Psychiatric: Alert, Oriented x3, No Motor/Sensory Deficits Skin: Normal Color, Warm/Dry (JAY VEGA) Progress/Results/Core Measures Results/Orders Lab Results Laboratory Tests Test 04/06/20 17:40 Range/Units White Blood Count 5.5 4.3-11.0 10^3/uL Red Blood Count 4.63 4.35-5.85 10^6/uL Hemoglobin 14.7 13.3-17.7 G/DL Hematocrit 43 40-54 % Mean Corpuscular Volume 94 80-99 FL Mean Corpuscular Hemoglobin 32 25-34 PG Mean Corpuscular Hemoglobin Concent 34 32-36 G/DL Red Cell Distribution Width 15.8 H 10.0-14.5 % Platelet Count 98 L 130-400 10^3/uL Mean Platelet Volume 12.6 H 7.4-10.4 FL Neutrophils (%) (Auto) 51 42-75 % Lymphocytes (%) (Auto) 37 12-44 % Monocytes (%) (Auto) 11 0-12 % Eosinophils (%) (Auto) 1 0-10 % Basophils (%) (Auto) 0 0-10 % Neutrophils # (Auto) 2.8 1.8-7.8 X 10^3 Lymphocytes # (Auto) 2.0 1.0-4.0 X 10^3 Monocytes # (Auto) 0.6 0.0-1.0 X 10^3 Eosinophils # (Auto) 0.1 0.0-0.3 10^3/uL Basophils # (Auto) 0.0 0.0-0.1 10^3/uL Prothrombin Time 15.3 H 12.2-14.7 SEC INR Comment 1.2 0.8-1.4 Activated Partial Thromboplast Time 34 24-35 SEC D-Dimer 1.02 H 0.00-0.49 UG/ML Sodium Level 141 135-145 MMOL/L Potassium Level 3.6 3.6-5.0 MMOL/L Chloride Level 108 H 98-107 MMOL/L Carbon Dioxide Level 21 21-32 MMOL/L Anion Gap 12 5-14 MMOL/L Blood Urea Nitrogen 12 7-18 MG/DL Creatinine 0.84 0.60-1.30 MG/DL Estimat Glomerular Filtration Rate > 60 BUN/Creatinine Ratio 14 Glucose Level 78 70-105 MG/DL Calcium Level 8.9 8.5-10.1 MG/DL Corrected Calcium 9.0 8.5-10.1 MG/DL Magnesium Level 2.0 1.6-2.4 MG/DL Total Bilirubin 0.8 0.1-1.0 MG/DL Aspartate Amino Transf (AST/SGOT) 35 H 5-34 U/L Alanine Aminotransferase (ALT/SGPT) 23 0-55 U/L Alkaline Phosphatase 76 40-136 U/L Myoglobin 72.0 10.0-92.0 NG/ML Troponin I 0.032 H <0.028 NG/ML C-Reactive Protein High Sensitivity 0.20 0.00-0.50 MG/DL B-Type Natriuretic Peptide 274.2 H <100.0 PG/ML Total Protein 6.9 6.4-8.2 GM/DL Albumin 3.9 3.2-4.5 GM/DL (NICOLETTE LARSEN MD) My Orders Orders - NICOLETTE LARSEN MD Apixaban Tablet (Eliquis Tablet) (04/06/20 19:15) Diltiazem Cd 24 Hr Capsule (Cardizem Cd (04/06/20 19:15) (NICOLETTE LARSEN MD) Medications Given in ED Current Medications Medications Dose Ordered Sig/Adelfo Route Start Time Stop Time Status Last Admin Dose Admin Aspirin 324 mg ONCE ONCE PO 04/06/20 18:00 04/06/20 18:01 DC 04/06/20 18:01 324 MG Sodium Chloride 500 ml @ 0 mls/hr Q0M ONCE IV 04/06/20 17:52 04/06/20 17:54 DC 04/06/20 18:01 0 MLS/HR (NICOLETTE LARSEN MD) Vital Signs/I&O 04/06/20 17:37 Temp 36.8 Pulse 126 Resp 18 B/P (MAP) 148/96 (113) Pulse Ox 98 O2 Delivery Room Air (NICOLETTE LARSEN MD) Progress Progress Note : Time: 17:57 Progress Note Patient takes Cardizem twice a day unknown dose. Plan start IV Cardizem as he is in A. fib with RVR up in the 1 teens. We'll also look for underlying source of his tachycardia such as a pneumonia given his cough. 500 cc of fluid to start. BNP. Troponin and EKG. Chest x-ray. (JAY VEGA) Progress Note : Progress Note 1800: Assumed care of the patient from Dr. Vega pending labs and x-ray. 1846: I have reexamined the patient. Heart rate now 90s to 110s and atrial fibrillation noted. Labs and chest x-ray reviewed by me. Troponin slightly blunted BNP is slightly elevated. I believe this is related to paroxysmal atrial fibrillation. He is currently moderately controlled rate. I did discuss the case with Dr. Mckeon, on-call for Dr. Winters. He is recommending observation admission with the admitting to medicine and cardiology on consult. Recommending continuing dose of Cardizem on Eliquis. Nothing by mouth after midnight. This was ordered. I did discuss the case with Dr. Andersen at 1852 and she accepts patient for admission, observation status to step down unit. All findings concerns were discussed with the patient who agrees with plan. Eliquis 5 mg by mouth and Cardizem 120 mg by mouth ordered. Patient did receive 324 mg of aspirin on arrival. (NICOLETTE LARSEN MD) Initial ECG Impression Date: April 06, 2020 Initial ECG Impression Time: 17:42 Initial ECG Rate: 98 Initial ECG Rhythm: A Fib/Flutter Initial ECG Intervals: QT (426) Initial ECG Impression: Atrial Fibrillation w/RVR Initial ECG Comparisson: Changed (atrial fibrillation with rapid ventricular response.) Comment Atria fibrillation with rapid ventricular response and no clinically relevant ST elevation or depression. (JAY VEGA) Diagnostic Imaging Diagonstic Imaging: Xray Plain Films/CT/US/NM/MRI: chest (1v) Reviewed: Reviewed by Me (JAY VEGA) Comments [facility], [place] NAME: TAJ ELKINS [facility] REC#: [id number] PT STATUS: REG ER : 1935 PHYSICIAN: JAY VEGA MD ADMIT DATE: 04/06/20/ER Signed Date of Exam:04/06/20 CHEST 1 VIEW, AP/PA ONLY CHEST 1 VIEW, AP/PA ONLY Indication: Shortness of air Comparison: 03/12/2019 Findings: Small bilateral pleural effusions. Bibasilar pulmonary opacities could represent relaxation atelectasis. Biapical subpleural scarring is unchanged. Stable enlargement of cardiac silhouette. Impression: 1. Small bilateral pleural effusions with cardiomegaly may be due to heart failure. Dictated by: Dictated on workstation # [id number] Dict: 04/06/201806 Trans: 04/06/201808 [facility] [phone] Interpreted by: AJAY MORRIS MD Electronically signed by: AJAY MORRIS MD 04/06/201808 (NICOLETTE LARSEN MD) Transfer of Care Time: 18:05 Care transferred to: Dr. Larsen (JAY VEGA) Departure Communication (Admissions) Time/Spoke to Admitting Phy: 18:52 Time/Spoke to Consulting Phy: 18:47 (NICOLETTE LARSEN MD) Impression Primary Impression: Paroxysmal atrial fibrillation Additional Impression: Elevated troponin Disposition: ADMITTED INPATIENT Condition: Stable Admissions Decision to Admit Reason: Admit from ER (General) Decision to Admit/Date: April 06, 2020 Time/Decision to Admit Time: 18:47 (NICOLETTE LARSEN MD) Departure-Patient Inst. Referrals: LISETH SCHMITZ MD (PCP/Family) Primary Care Physician JAY VEGA April 06, 2020 17:59 NICOLETTE LARSEN MD April 06, 2020 19:12
[2020-04-06] MEDS ORDERED: ASPIRIN 81 MG CHEW (CHILDREN'S ASA) PO ONE (18:00)
[2020-04-06 18:05] LABS: INR 1.2 (0.8-1.4); PROTHROMBIN TIME PATIENT 15.3 SEC (12.2-14.7)
--- NOTE | 2020-04-06 18:10 | Diagnostic Imaging Report ---
CHEST 1 VIEW, AP/PA ONLY Indication: Shortness of air Comparison: 03/12/2019 Findings: Small bilateral pleural effusions. Bibasilar pulmonary opacities could represent relaxation atelectasis. Biapical subpleural scarring is unchanged. Stable enlargement of cardiac silhouette. Impression: 1. Small bilateral pleural effusions with cardiomegaly may be due to heart failure. Dictated by: Dictated on workstation # [id number]
[2020-04-06 18:15] LABS: ALBUMIN 3.9 GM/DL (3.2-4.5); BASOPHILS % (AUTO) 0 % (0-10); CHLORIDE 108 MMOL/L (98-107); EOSINOPHILS # (AUTO) 0.1 10^3/uL (0.0-0.3); EOSINOPHILS % (AUTO) 1 % (0-10); HEMATOCRIT 43 % (40-54); HEMOGLOBIN 14.7 G/DL (13.3-17.7); LYMPHOCYTES % (AUTO) 37 % (12-44); MEAN CORPUSCULAR HEMOGLOBIN 32 PG (25-34); MEAN CORPUSCULAR HGB CONC 34 G/DL (32-36); MEAN CORPUSCULAR VOLUME 94 FL (80-99); MEAN PLATELET VOLUME 12.6 FL (7.4-10.4); MONOCYTES # (AUTO) 0.6 X 10^3 (0.0-1.0); MONOCYTES % (AUTO) 11 % (0-12); NEUTROPHILS # (AUTO) 2.8 X 10^3 (1.8-7.8); NEUTROPHILS % (AUTO) 51 % (42-75); PLATELET COUNT 98 10^3/uL (130-400); POTASSIUM 3.6 MMOL/L (3.6-5.0); RED CELL DISTRIBUTION WIDTH 15.8 % (10.0-14.5); SODIUM 141 MMOL/L (135-145); WHITE BLOOD COUNT 5.5 10^3/uL (4.3-11.0)
[2020-04-06 18:17] LABS: CALCIUM 8.9 MG/DL (8.5-10.1)
[2020-04-06 18:18] LABS: GLUCOSE 78 MG/DL (70-105); TOTAL PROTEIN 6.9 GM/DL (6.4-8.2)
[2020-04-06 18:19] LABS: CARBON DIOXIDE 21 MMOL/L (21-32)
[2020-04-06 18:20] LABS: BILIRUBIN,TOTAL 0.8 MG/DL (0.1-1.0)
[2020-04-06 18:21] LABS: ALKALINE PHOSPHATASE 76 U/L (40-136); CREATININE SERUM 0.84 MG/DL (0.60-1.30); GFR ESTIMATED > 60
[2020-04-06 18:22] LABS: BUN/CREATININE RATIO 14
[2020-04-06 18:24] LABS: ALANINE AMINOTRANSFERASE 23 U/L (0-55)
--- OUTSIDE RECORDS SUMMARY | 2020-04-06 19:04 | XMS REPORT | Encounter Summary ---
Author Author [facility] Organization [facility] Address Unknown Phone Unavailable Care Team Providers Care Occupational Analyst Name Role Phone PCP Unavailable Encounter Details Care Team Description Date Type Department Irregular heart beat 12/17/2014 Orders Only [place] [address] [place] [address] Social History Date Tobacco Use Types Packs/Day Years Used Never Smoker Smokeless Tobacco: Never Used Drinks/Week oz/Week Comments Alcohol Use occasional beer Yes Sex Assigned at Date Recorded Not on file Industry Job Start Date Occupation Not on file Not on file Not on file Travel End Travel History Travel Start No recent travel history available. 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 [place] Specimen Blood Performing Organization Address City/State/[place] Ph one Number [facility] CLIA# [id number] [place] [address] - [address] LABORATORY SERVICES CLIA# [id number] [place] [address] - [place] [address] documented in this encounter Visit Diagnoses Diagnosis Irregular heart beat Cardiac dysrhythmia, unspecified documented in this encounter
--- OUTSIDE RECORDS SUMMARY | 2020-04-06 19:04 | XMS REPORT | Encounter Summary ---
Author Author [facility] Organization [facility] Address Unknown Phone Unavailable Care Team Providers Care Surveillance Sensor Officer Name Role Phone PCP Unavailable Reason for Visit * Reason Comments LOW BACK PAIN low to mid back pain Other is on warfarin; stopped johanna ing warfarin 7 days ago Other constipation has been takin g otc stool softner Encounter Details Care Team Description Date Type Department Rupali Angel, INTERNET ECOMMER[employer] SPECIALIST [address] [place] [address] Back pain (Primary Dx); Warfarin anticoagulation 12/11/2014 Office Visit [facility] [place] [address] [place] [address] Social History Date Tobacco Use Types Packs/Day Years Used Never Smoker Smokeless Tobacco: Never Used Drinks/Week oz/Week Comments Alcohol Use occasional beer Yes Sex Assigned at Date Recorded Not on file Industry Job Start Date Occupation Not on file Not on file Not on file Travel End Travel History Travel Start No recent travel history available. documented as of this encounter Last Filed Vital Signs Reading Time Taken Comments Vital Sign 140/85 12/11/2014 1:26 PM HOME SERVICE TECHNICIAN Blood Pressure - - Pulse 36.8 C (98.3 F) 12/11/2014 1:26 PM HOME SERVICE TECHNICIAN Temperature - - Respiratory Rate - - Oxygen Saturation - - Inhaled Oxygen Concentration 84.8 kg (187 lb) 12/11/2014 1:26 PM HOME SERVICE TECHNICIAN Weight 189.2 cm (6' 2.5") 12/11/2014 1:26 PM HOME SERVICE TECHNICIAN Height 23.69 12/11/2014 1:26 PM HOME SERVICE TECHNICIAN Body Mass Index documented in this encounter Progress Notes * Rupali Angel, INTERNET ECOMMER[employer] SPECIALIST - 12/11/2014 2:05 PM HOME SERVICE TECHNICIAN HISTORY OF PRESENT ILLNESS Mitchel Prince, a 79 y.o. male. HPI Patient presents with clinic with c/o back pain. States has been ongoing for 2-3 months after being on a ladder and picking up a heavy box. States has tried "pain medicine" but made him constipated. Has also tried Advil and topical icy hot with some relief. Stopped icy hot after said is "messin g with my bowels". has been on Coumadin for "couple of years" after having multiple stents p laced. Stopped his coumadin 7 days ago as he thought maybe the cause of back renuka n. has had a lot of problems with constipation- takes stool softer daily and miralax and "small pill that is a laxative" as needed. Denies any chest pain or shortness of breath. Denies fever or acute illness. Den ies loss of bowel or bladder. Denies difficulty urinating or blood in urine. 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 sleeps in a recliner because "its easier to get up and go to the bathroom at night". Denies back pain when sleeping or lying flat. States has some pain when sitting but more when moving. Concerned has ruptured d isc and request xray. States history of L4-5 fusion. Subjective REVIEW OF SYSTEMS Review of Systems Constitutional: Negative for fever. Respiratory: Negative. Cardiovascular: Negative. Gastrointestinal: Positive for constipation. Negative for nausea and vomiting. Genitourinary: Negative. Musculoskeletal: Positive for back pain. Negative for myalgias, joint swelling, gait problem, neck pain and neck stiffness. Neurological: Negative. Negative for headaches. Objective PHYSICAL EXAM BP 140/85 | Temp(Src) 98.3 F (36.8 C) (Tympanic) | Ht 6' 2.5" (1.892 m) | Wt 187 lb (84.823 kg) | BMI 23.70 kg/m2 Physical Exam Constitutional: He is oriented to person, place, and time. He appears well-devel oped and well-nourished. Non-toxic appearance. He does not have a sickly appear ance. He does not appear ill. No distress. HENT: Head: Normocephalic and atraumatic. Eyes: Pupils are equal, round, and reactive to light. Neck: Normal range of motion. Neck supple. Cardiovascular: Normal rate, regular rhythm and normal heart sounds. No murmur heard. Pulmonary/Chest: Effort normal and breath sounds normal. No respiratory distress . Musculoskeletal: Normal range of motion. He exhibits tenderness. Lumbar back: He exhibits tenderness. He exhibits normal range of motion, no bony tenderness, no swelling, no edema, no deformity, no laceration, no pain, no spasm and normal pulse. Back: Hyperkyphosis noted. No obvious trauma. Minimal pain with palpation. ROM intact. Sensation intact. Neurological: He is alert and oriented to person, place, and time. Skin: Skin is warm and dry. He is not diaphoretic. Psychiatric: He has a normal mood and affect. His behavior is normal. Judgment a nd thought content normal. Nursing note and vitals reviewed. Assessment ASSESSMENT and PLAN: ICD-9-CM ICD-10-CM 1. Back pain 724.5 M54.9 XR THORACIC SPINE 3 VW 2. Warfarin anticoagulation V58.61 Z79.01 PROTIME-INR Plan: Appears to be musculoskeletal in nature. Most likely strain from lifting. Xray today. Restart coumadin, do not feel this is the cause of his pain. Will get PT/INR today. Ok to use Advil but limit to one tablet due to S.E. Restart topical icy hot as needed. Heat/cold topically to back. Rest and no heavy lifting. Follow up Monday, will need PT/INR rechecked at that time. SERVICE TECHNICIAN documented in this encounter Plan of Treatment Not on filedocumented as of this encounter Procedures Comments Procedure Name Priority Date/Time Associated Diag nosis PROTIME-INR Routine 12/11/2014 Warfarin antico agulation 2:05 PM HOME SERVICE TECHNICIAN documented in this encounter Results * XR THORACIC SPINE 3 VW (12/11/2014 4:42 PM HOME SERVICE TECHNICIAN) Specimen Impressions Performed At IMPRESSION: INTERFACE SYSTEM Kyphosis with generalized bony deminera lization. Chronic appearing compression deformiti es in the mid to lower thoracic spine. If an acute compression fracture is clinically suspected then M RI followup is recommended. Thoracic spondylosis. Electronically Signed By: Matt Ivy MD, Signed On: 12/11/2014 3:44 PM Narrative Performed At RADIOLOGIC EXAM: Three views of the thoracic spine. INTERFACE SYSTEM INDICATIONS: Back pain. FINDINGS: There is accentuation of thor acic kyphosis. Chronic appearing compression deformities are seen in the mid to lower thoracic spine. If an acute compression fracture is clinically suspected then MRI followup is recommended. No paraspinous masses seen. The pedicles appear intact. There is multilevel degenerative disc disease with endplate osteophyte formation and disc space narrowing. There is decreased bony mineralization consistent with ost eopenia/osteoporosis. Procedure Note Interface, [facility] Incoming Radiology Results - 12/11/2014 3:48 PM HOME SERVICE TECHNICIAN RADIOLOGIC EXAM: Three views of the thoracic spine. INDICATIONS: Back pain. FINDINGS: There is accentuation of thoracic kyphosis. Chronic appearing compression deformities are seen in the mid to lower thoracic spine. If an acute compression fracture is clinically suspected then MRI followup is recommended. No paraspinous masses seen. The pedicles appear intact. There is multilevel degenerative disc disease with endplate osteophyte formation and disc space narrowing. There is decreased bony mineralization consistent with osteopenia/osteoporosis. IMPRESSION IMPRESSION: Kyphosis with generalized bony demineralization. Chronic appearing compression deformities in the mid to lower thoracic spine. If an acute compression fracture is clinically suspected then MRI followup is recommended. Thoracic spondylosis. Electronically Signed By: Matt Ivy MD, Signed On: 12/11/2014 3:44 PM Performing Organization Address City/State[facility] Ph one Number INTERFACE SYSTEM INTERFACE SYSTEM Refer to clinic/hospital department * PROTIME-INR (12/11/2014 2:05 PM HOME SERVICE TECHNICIAN) PROTIME 10.6 9.6 - 11.0 Seconds [facility] [place] INR 1.0 (L) 2.0 - 3.0 [facility] [employer] [facility] [place] Specimen Blood Performing Organization Address City/[facility]/Zipcode Ph one Number [facility] CLIA# [id number] [place] [address] [place] [address] [place] [address] LABORATORY SERVICES CLIA# [id number] [place] [address] - [place] [address] [facility] documented in this encounter Visit Diagnoses Diagnosis Back pain - Primary Backache, unspecified Warfarin anticoagulation Encounter for long-term (current) use o f anticoagulants documented in this encounter
--- OUTSIDE RECORDS SUMMARY | 2020-04-06 19:04 | XMS REPORT | Encounter Summary ---
Author Author [facility] Organization [facility] Address Unknown Phone Unavailable Care Team Providers Care Chief Of Field Operations Name Role Phone PCP Unavailable Reason for Visit * Reason Comments Immunization/Injection Encounter Details Care Team Description Date Type Department Nurse Mark Need for influenza vaccination (Primary Dx) 08/22/2014 Immunization [facility] [place] [id number] [place] [address] Social History Date Tobacco Use [...] Not on filedocumented as of this encounter Visit Diagnoses Diagnosis Need for influenza vaccination - Primar y Need for prophylactic vaccination and i noculation against influenza documented in this encounter
--- OUTSIDE RECORDS SUMMARY | 2020-04-06 19:04 | XMS REPORT | Encounter Summary ---
Author Author [facility] Organization [facility] Address Unknown Phone Unavailable Care Team Providers Care Enrichment Assistant Name Role Phone PCP Unavailable Reason for Visit * Reason Comments Immunization/Injection influenza Encounter Details Care Team Description Date Type Department Nurse Mark Need for influenza vaccination (Primary Dx) 08/26/2013 Immunization [facility] [place] [address] [place] [address] Social History Date Tobacco Use [...]
--- OUTSIDE RECORDS SUMMARY | 2020-04-06 19:04 | XMS REPORT | Clinical Summary ---
Author Author [facility] Organization [facility] Address Unknown Phone Unavailable Care Team Providers Care Stencil Machine Operator Name Role Phone PCP Unavailable Allergies Not on File Medications Not on file Active Problems Not on file Social History Date Tobacco Use Types Packs/Day Years Used Never Assessed Sex Assigned at Date Recorded Not on file Industry Job Start Date Occupation Not on file Not on file Not on file Travel End Travel History Travel Start No recent travel history available. Last Filed Vital Signs Not on file Plan of Treatment Health Maintenance Due Date Last Done Comments ZOSTER VACCINE (1 of 2) 1986 PNEUMOCOCCAL VACCINE 65+ 2001 YEARS (1 of 2 - PCV13) INFLUENZA VACCINE 06/20/2019 Results Not on filefrom Last 3 Months
--- OUTSIDE RECORDS SUMMARY | 2020-04-06 19:04 | XMS REPORT | Encounter Summary ---
Author Author [facility] Organization [facility] Address Unknown Phone Unavailable Care Team Providers Care Wallpaper Remover Steam Name Role Phone PCP Unavailable Encounter Details Care Team Description Date Type Department Stanley Rupali Luu, PROJECT DEVELOPMENT ENGINEER [address] [place] [address] 12/11/2014 [facility] des[facility] Encounter [place] [address] [place] [address] Social History Date Tobacco Use Types Packs/Day Years Used Never Smoker Smokeless Tobacco: Never Used Drinks/Week oz/Week Comments Alcohol Use occasional beer Yes Sex Assigned at Date Recorded Not on file Industry Job Start Date Occupation Not on file Not on file Not on file Travel End Travel History Travel Start No recent travel history available. documented as of this encounter Medications at Time of Discharge Start Date End Date Medication Sig Dispensed Refills aspirin (ENID) 81 mg Take by 0 Oral TabIndications: mouth. Runny nose, Acute URI MULTIVITS-MINERALS/FA/LYC Take by 0 OPENE (ONE-A-DAY MEN'S mouth. ORAL)Indications: Runny nose, Acute URI 11/21/2012 fluticasone (FLONASE) 50 Administer 2 1 Gram 3 mcg/spray Both Nostril Sprays in SpSnIndications: Runny each nostril nose, Acute URI daily. documented as of this encounter Plan of Treatment Not on filedocumented as of this encounter Procedures Comments Procedure Name Priority Date/Time Associated Diag nosis XR THORACIC SPINE 3 VW Routine 12/11/2014 Back pa in 4:42 PM CPO documented in this encounter Results * XR THORACIC SPINE 3 VW (12/11/2014 4:42 PM CPO) Specimen Impressions Performed At IMPRESSION: INTERFACE SYSTEM [...] consistent with ost eopenia/osteoporosis. Procedure Note Interface, [facility] Incoming Radiology Results - 12/11/2014 3:48 PM CPO RADIOLOGIC EXAM: Three views of the thoracic [...] On: 12/11/2014 3:44 PM Performing Organization Address City/State/Zipcode Ph one Number INTERFACE SYSTEM INTERFACE SYSTEM Refer to clinic/hospital department documented in this encounter Visit Diagnoses Diagnosis Back pain Backache, unspecified documented in this encounter
--- OUTSIDE RECORDS SUMMARY | 2020-04-06 19:04 | XMS REPORT | Encounter Summary ---
Author Author [facility] Organization [facility], [facility] Address Unknown Phone Unavailable Care Team Providers Care Vp Customer Service Name Role Phone PCP Unavailable Encounter Details Care Team Description Date Type Department Conner Contreras MD [address] [place] [address] [address] [place] [address] SUBENDO FIRST EPISODE CARE (Primary Dx) 10/12/2002 Inpatient [facility] Historical MEDICAL CARDIAC [address] [facility] [place] [address] Social History Date Tobacco Use Types Packs/Day Years Used Never Assessed Sex Assigned at Date Recorded Not on file Industry Job Start Date Occupation Not on file Not on file Not on file Travel End Travel History Travel Start No recent travel history available. documented as of this encounter Plan of Treatment Not on filedocumented as of this encounter Visit Diagnoses Diagnosis Acute myocardial infarction, subendocar dial infarction, initial episode of care - Primary documented in this encounter
--- OUTSIDE RECORDS SUMMARY | 2020-04-06 19:04 | XMS REPORT | Clinical Summary ---
Author Author [facility] Organization [facility] Address Unknown Phone Unavailable Care Team Providers Care Recreation Clerk Name Role Phone PCP Unavailable Allergies No Known Allergies Medications End Date Status Medication Sig Dispensed Refills Start Date Active aspirin (ENID) 81 mg Take by 0 Oral TabIndications: mouth. Runny nose, Acute URI Active MULTIVITS-MINERALS/FA/LYC Take by 0 OPENE (ONE-A-DAY MEN'S mouth. ORAL)Indications: Runny nose, Acute URI Active fluticasone (FLONASE) 50 Administer 2 1 Gram 3 mcg/spray Both Nostril Sprays in 3 SpSnIndications: Runny each nostril nose, Acute URI daily. Active Problems Problem Noted Date Hyperlipidemia 11/21/2012 CAD (coronary artery disease) 11/21/2012 Immunizations Name Administration Dates Next Due Influenza Vaccine Quad 08/22/2014 Split 3+ Yrs Im Influenza Vaccine Split 09/08/2015, 08/26/2013, , 09/01/2010 3+ Yrs IM Social History Date Tobacco Use Types Packs/Day Years Used Never Smoker Smokeless Tobacco: Never Used Drinks/Week oz/Week Comments Alcohol Use occasional beer Yes Sex Assigned at Date Recorded Not on file Industry Job Start Date Occupation Not on file Not on file Not on file Travel End Travel History Travel Start No recent travel history available. Last Filed Vital Signs Reading Time Taken Comments Vital Sign 144/88 12/15/2014 10:22 AM SECURED ENTRANCE MONITOR Blood Pressure 80 12/15/2014 10:22 AM SECURED ENTRANCE MONITOR Pulse 36.9 C (98.5 F) 12/15/2014 10:22 AM SECURED ENTRANCE MONITOR Temperature 20 11/21/2012 1:23 PM SECURED ENTRANCE MONITOR Respiratory Rate - - Oxygen Saturation - - Inhaled Oxygen Concentration 83.5 kg (184 lb) 12/15/2014 10:22 AM SECURED ENTRANCE MONITOR Weight 190.5 cm (6' 3") 12/15/2014 10:22 AM SECURED ENTRANCE MONITOR Height 23 12/15/2014 10:22 AM SECURED ENTRANCE MONITOR Body Mass Index Plan of Treatment Health Maintenance Due Date Last Done Comments ZOSTER VACCINE (1 of 2) 1986 PNEUMOCOCCAL VACCINE 65+ 2001 YEARS (1 of 2 - PCV13) INFLUENZA VACCINE 06/20/2019 09/08/2015, 014, 08/26/2013, Additional history exists Results Not on filefrom Last 3 Months Insurance Type Payer Benefit Subscriber ID Effective Phone Address Plan / Dates Group Medicare MEDICARE MEDICARE [id number] 2001-P [employer] [facility] [id number] 2010 HEALTHCARE -Present Mitchel Prince Personal/F Self 1935 [address] [place] (Home) [facility] [place] [facility] [place] [id number] NikiMitchel M Personal/F Self 1935 [address] am[place] (Home) [facility] [place] [facility] [place] [address] Mitchel Prince Personal/F Self 1935 [address] amily (Home) [place] [address] Mitchel Prince Personal/F Self 1935 [address] amily (Home) [place] [address] Advance Directives For more information, please contact: [phone] 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
--- OUTSIDE RECORDS SUMMARY | 2020-04-06 19:04 | XMS REPORT | Encounter Summary ---
Author Author [facility] Organization [facility] Address Unknown Phone Unavailable Care Team Providers Care Meteorological Technician Name Role Phone PCP Unavailable Reason for Referral * Outpatient Services (Routine) Referred By Contact Referred To Contact Status Reason Specialty Diagnoses / Procedures Mitchel Chen MD [address] [place] [phone] [facility] [address] [place] [phone] Closed Radiology Diagnoses Lumbar radiculopathy P rocedures MRI LUMBAR W WO CONTRAST Reason for Visit * Outpatient Services (Routine) Referred By Contact Referred To Contact Status Reason Specialty Diagnoses / Procedures Mitchel Chen MD [address] [place] [phone] [facility] [address] [place] [phone] Closed Radiology Diagnoses Lumbar radiculopathy P rocedures MRI LUMBAR W WO CONTRAST Encounter Details Care Team Description Date Type Department Mitchel Chen MD [address] [place] [address] [phone] Canceled (Patient Requested) 02/26/2015 [facility] F ort Encounter [facility] MRI [address] [place] [phone] Social History Date Tobacco Use Types Packs/Day [...] as of this encounter Plan of Treatment Order Schedule Name Type Priority Associated Diag noses Added to F configuration to grandchild yun will have ORD item [id number] populate with time. for 1 Occurrences starting 02/26/2015 until 02/26/2015 MRI LUMBAR W WO CONTRAST Imaging Routine Lumba r radiculopathy documented as of this encounter Visit Diagnoses Diagnosis Lumbar radiculopathy Thoracic or lumbosacral neuritis or rad iculitis, unspecified documented in this encounter
--- OUTSIDE RECORDS SUMMARY | 2020-04-06 19:04 | XMS REPORT | Encounter Summary ---
Author Author [facility] Organization [facility] Address Unknown Phone Unavailable Care Team Providers Care Engagement Executive Name Role Phone PCP Unavailable Reason for Visit * Reason Comments Follow Up Encounter Details Care Team Description Date Type Department Laura Nunez ARNP [address] [place] [address] Follow up (Primary Dx); Back pain; Irregular heart beat 12/15/2014 Office Visit [facility] [place] [address] [place] [address] Social History Date Tobacco Use [...] Comments Vital Sign 144/88 12/15/2014 10:22 AM REC THERAPIST Blood Pressure 80 12/15/2014 10:22 AM REC THERAPIST Pulse 36.9 C (98.5 F) 12/15/2014 10:22 AM REC THERAPIST Temperature - - Respiratory Rate - - Oxygen Saturation - - Inhaled Oxygen Concentration 83.5 kg (184 lb) 12/15/2014 10:22 AM REC THERAPIST Weight 190.5 cm (6' 3") 12/15/2014 10:22 AM REC THERAPIST Height 23 12/15/2014 10:22 AM REC THERAPIST Body Mass Index documented in this encounter Progress Notes * Laura Nunez ARNP - 12/15/2014 11:21 AM REC THERAPIST HISTORY OF PRESENT ILLNESS Mitchel Prince, a 79 y.o. male. 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 Winters for cardiac and has a stent HX and "rapid Heart ra te" Likely afib -he was told by the pain clinic to stop warfarin if ok with cardiology 5 days pr ior to being seen - INR last week was 1.0 - he took 2 doses then skipped last PM -states was seen in ER Monday for back pain at [facility]- waiting on records -Xray shows likely old compression fx and DDD- MRI recommend if acute issue - pain is improved today REVIEW OF SYSTEMS Review of Systems Constitutional: Positive for activity change. Negative for fever, appetite poole e and fatigue. HENT: Negative. Negative for congestion and dental problem. Respiratory: Negative. Negative for shortness of breath. Cardiovascular: Positive for palpitations. Negative for chest pain. Musculoskeletal: Positive for myalgias, back pain and arthralgias. Negative for gait problem. Neurological: Negative. Negative for weakness and numbness. Objective PHYSICAL EXAM BP 144/88 | Pulse 80 | Temp(Src) 98.5 F (36.9 C) (Tympanic) | Ht 6' 3" (1.90 5 m) | Wt 184 lb (83.462 kg) | BMI 23.00 kg/m2 Physical Exam Constitutional: He is oriented to person, place, and time. He appears well-devel oped and well-nourished. No distress. Cardiovascular: Normal rate, regular rhythm and normal heart sounds. Pulmonary/Chest: Effort normal and breath sounds normal. No respiratory distress . He has no wheezes. Musculoskeletal: He exhibits tenderness (lower back ). Neurological: He is alert and oriented to person, place, and time. Coordination normal. Skin: Skin is warm and dry. He is not diaphoretic. No pallor. Psychiatric: He has a normal mood and affect. His behavior is normal. Judgment a nd thought content normal. Nursing note and vitals reviewed. Assessment ASSESSMENT and PLAN: ICD-9-CM ICD-10-CM 1. Follow up V67.9 Z09 2. Back pain 724.5 M54.9 3. Irregular heart beat 427.9 I49.9 PROTIME-INR 1. Spoke at length with pt and the need to continue coumadin and risks ass ociated with stopping. -recommended restarting today (only 1 missed dose) -will recheck INR Monday 2. Cont with f/u at cardiology and pain clinic 3. We will be glad to see him PRN for acute needs - I recommend establishing he re or PCP of choice to follow for issues not r/t cardiac - [facility] 4. Deferring pain to pain specialist including rad THERAPIST documented in this encounter Plan of Treatment Not on filedocumented as of this encounter Results * PROTIME-INR (12/17/2014 8:36 AM REC THERAPIST) PROTIME 10.2 9.6 - 11.0 Seconds [facility] [place] INR 1.0 (L) 2.0 - 3.0 [facility] [place] Specimen Blood Performing Organization Address City/State/Zipcode Ph one Number [facility] CLIA# [id number] [place] [address] - [place] [address] LABORATORY SERVICES CLIA# [id number] [place] [address] - [address] documented in this encounter Visit Diagnoses Diagnosis Follow up - Primary Back pain Backache, unspecified Irregular heart beat Cardiac dysrhythmia, unspecified documented in this encounter
--- OUTSIDE RECORDS SUMMARY | 2020-04-06 19:04 | XMS REPORT | Encounter Summary ---
Author Author [facility] Organization [facility] Address Unknown Phone Unavailable Care Team Providers Care Parks Recreation Director Name Role Phone PCP Unavailable Encounter Details Care Team Description Date Type Department Mitchel Chen MD [address] [place] [address] [facility] Outpt Lab 02/26/2015 [facility] Outpatient Encounter Laboratory [address] [address] Social History Date Tobacco Use Types Packs/Day [...] Procedure Name Priority Date/Time Associated Diag nosis COMPREHENSIVE METABOLIC Stat 02/26/2015 Back p ain PANEL 1:05 PM CDT documented in this encounter Results * COMPREHENSIVE METABOLIC PANEL (02/26/2015 1:05 PM CDT) [facility] Signature SODIUM 138 134 - 145 mmol/L [facility] - [facility] [place] POTASSIUM 3.5 3.5 - 5.1 mmol/L [facility] [place] CHLORIDE 105 98 - 107 mmol/L [facility] [place] CO2 26 22 - 31 mmol/L [facility] [place] CALCIUM 9.0 8.5 - 10.1 mg/dL [facility] [place] BUN 12 7 - 20 mg/dL [facility] [place] CREATININE 0.77 0.67 - 1.17 mg/dL [facility] Comment: LABORATORY The GFR result is not SERVICES - [facility] clinically significant on GLADWYNE patients <18 or >70 years of age. GLUCOSE 100 70 - 100 mg/dL [facility] [place] TOTAL PROTEIN 6.4 6.4 - 8.2 g/dL [facility] - [facility] [place] ALBUMIN 3.0 (L) 3.4 - 5.0 g/dL [facility] [place] BILIRUBIN TOTAL 0.6 <=1.1 mg/dL [facility] - [place] ALKALINE 90 40 - 136 U/L [facility] PHOSPHATASE LABORATORY SERVICES - [place] AST 21 10 - 40 U/L [facility] [place] ALT 34 14 - 63 U/L [facility] [place] GFR >60 mL/min/1.[address] [facility] Comment: LABORATORY eGFR has not been validated SERVICES - [facility] for use in the elderly (> 70 [place]TON[place] years of age), women, patients with serious co-morbid conditions, or persons with extremes of body size or muscle mass and should also be interpreted with caution in patients with acute kidney failure, dialysis dependent patients, patients reporting exceptional dietary intake (e.g. vegetarian diet, high protein diets, creatine supplementation), and patients with severe liver disease. Based on National Kidney Disease Education Program If patient is , please refer to the GFR result. GFR, >60 mL/min/1.[address] [facility] - [facility] [place] ANION GAP 7 4 - 20 mmol/L [facility] [place] Specimen Blood Performing Organization Address City/State/[facility] Ph one Number [facility] CLIA# [id number] [place] [address] - [place] [address] [facility] documented in this encounter Visit Diagnoses Diagnosis Back pain - Primary Backache, unspecified documented in this encounter
--- OUTSIDE RECORDS SUMMARY | 2020-04-06 19:04 | XMS REPORT | Encounter Summary ---
Author Author [facility] Organization [facility] Address Unknown Phone Unavailable Care Team Providers Care Wood Heel Attacher Name Role Phone PCP Unavailable Reason for Referral * Consult, Test & Treat (Routine) Referred By Contact Referred To Contact Status Reason Specialty Diagnoses / Procedures Laura Nunez ARNP [address] [place] [address] Closed Pain Management Diagnoses Back pain Encounter Details Care Team Description Date Type Department Laura Nunez ARNP [address] [place] [address] Back pain (Primary Dx) 12/19/[address] [facility] [place] [address] [place] [address] Social History Date Tobacco Use [...] Schedule Name Type Priority Associated Diag noses Ordered: 12/19/2014 AMB REFERRAL TO PAIN Outpatient Routine Back pain CLINIC Referral documented as of this encounter Visit Diagnoses Diagnosis Back pain - Primary Backache, unspecified documented in this encounter
--- OUTSIDE RECORDS SUMMARY | 2020-04-06 19:04 | XMS REPORT | Encounter Summary ---
Author Author [facility] Organization [facility] Address Unknown Phone Unavailable Care Team Providers Care Family Physician Name Role Phone PCP Unavailable Reason for Visit * Reason Comments Immunization/Injection Encounter Details Care Team Description Date Type Department Laura Nunez, DOCUMENT REVIEW ATTORNEY [address] [place] [address] Nurse Mark Need for influenza vaccination (Primary Dx) 09/08/2015 Immunization [facility] [address] [place] [address] Social History Date Tobacco Use [...]
--- OUTSIDE RECORDS SUMMARY | 2020-04-06 19:05 | XMS REPORT | Encounter Summary ---
Author Author [facility] Organization [facility] Address Unknown Phone Unavailable Care Team Providers Care Learning Coordinator Name Role Phone PCP Unavailable Reason for Visit * Reason Comments Nasal Congestion Sinus Pain Encounter Details Care Team Description Date Type Department Laura Nunez, CRISTOFER [address] [place] [address] Runny nose; Acute URI; Hyperlipidemia; CAD (coronary artery disease) 11/21/2012 Office Visit [facility] [place] [address] [place] [address] Social History Date Tobacco Use [...] Signs Reading Time Taken Comments Vital Sign 132/74 11/21/2012 1:23 PM RECORDING CLERK Blood Pressure 84 11/21/2012 1:23 PM RECORDING CLERK Pulse 36.2 C (97.1 F) 11/21/2012 1:23 PM RECORDING CLERK Temperature 20 11/21/2012 1:23 PM RECORDING CLERK Respiratory Rate - - Oxygen Saturation - - Inhaled Oxygen Concentration 94.3 kg (208 lb) 11/21/2012 1:23 PM RECORDING CLERK Weight 188 cm (6' 2") 11/21/2012 1:23 PM RECORDING CLERK Height 26.71 11/21/2012 1:23 PM RECORDING CLERK Body Mass Index documented in this encounter Patient Instructions * Patient Instructions* Laura Nunez, DETENTION DEPUTY - 11/21/2012 1:29 PM RECORDING CLERK Turkish | Albanian Mely Patient Instructions Upper Respiratory Infection (Cold): After Your Visit Your Care Instructions An upper respiratory infection, also called a URI, is an infection of the nose, sinuses, or throat. URIs are spread by coughs, sneezes, and direct contact. The common cold is the most frequent kind of URI. The flu and sinus infections are o ther kinds of URIs. Almost all URIs are caused by viruses, so antibiotics won't cure them. But you c an treat most infections with home care. This may include drinking lots of fluid s and taking xkzb-jyu-emjmigf pain medicine. You will probably feel better in 4 to 10 days. The doctor has checked you carefully, but problems can develop later. If you not ice any problems or new symptoms, get medical treatment right away. Follow-up care is a varela part of your treatment and safety. Be sure to make and g o to all appointments, and call your doctor if you are having problems. It's als o a good idea to know your test results and keep a list of the medicines you johanna e. How can you care for yourself at home? To prevent dehydration, drink plenty of fluids, enough so that your urine is light yellow or clear like water. Choose water and other caffeine-free clear liq uids until you feel better. If you have kidney, heart, or liver disease and have to limit fluids, talk with your doctor before you increase the amount of fluids you drink. Take an drwd-hcv-wsavzjy pain medicine, such as acetaminophen (Tylenol), ibup rofen (Advil, Motrin), or naproxen (Aleve). Read and follow all instructions on the label. If your doctor prescribed antibiotics, take them as directed. Do not stop johanna ing them just because you feel better. You need to take the full course of antib iotics. Before you use cough and cold medicines, check the label. These medicines may not be safe for young children or for people with certain health problems. Be careful when taking ezpe-sgl-aarngax cold or flu medicines and Tylenol at the same time. Many of these medicines have acetaminophen, which is Tylenol. [place] d the labels to make sure that you are not taking more than the recommended dose . Too much acetaminophen (Tylenol) can be harmful. Get plenty of rest. Do not smoke or allow others to smoke around you. If you need help quitting, talk to your doctor about stop-smoking programs and medicines. These can increas e your chances of quitting for good. When should you call for help? Call 911 anytime you think you may need emergency care. For example, call if: You have severe trouble breathing. Call your doctor now or seek immediate medical care if: You seem to be getting much sicker. You have new or worse trouble breathing. You have a new or higher fever. You have a new rash. Watch closely for changes in your health, and be sure to contact your doctor if: You have a new symptom, such as a sore throat, an earache, or sinus pain. You cough more deeply or more often, especially if you notice more mucus or a change in the color of your mucus. You do not get better as expected. Where can you learn more? Go to www.[employer] in the Health Information search box Enter K520 in the search box to learn more about "Upper Respiratory Infection (C old): After Your Visit." [id number] [employer] ([place]). Care instructions adapted under license andrea Larson. [employer] disclaims any warranty or liability for your use of this informat ion. This information is not intended to represent the ethical and alevism bel iefs of [employer]. This care instruction is for use with your licensed healthcare [facility]. If you have questions about a medical condition or this instruction, always ask your healthcare professional. [employer] ([employer]) disclaims any warranty or liability for your use of this information. Content Version: 9.4.61067; Last Revised: March 12, 2012 RDING CLERK documented in this encounter Progress Notes * Laura Nunez ARNP - 11/21/2012 1:32 PM RECORDING CLERK HISTORY OF PRESENT ILLNESS Mitchel Prince, a 77 y.o. male. HPI 1. Here today with c/o runny nose -onset yesterday -no fever -eating, drinking and activity as usual -using OTC cold med with some help REVIEW OF SYSTEMS Review of Systems Constitutional: Negative. Negative for fever, chills, activity change, appetite change and fatigue. HENT: Positive for rhinorrhea. Negative for congestion, sore throat, postnasal d rip and sinus pressure. Respiratory: Negative. Negative for cough and shortness of breath. Cardiovascular: Negative. Neurological: Negative. Negative for headaches. PHYSICAL EXAM BP 132/74 | Pulse 84 | Temp 97.1 F (36.2 C) | Resp 20 | Ht 6' 2" (1.88 m) | Wt 208 lb (94.348 kg) | BMI 26.71 kg/m2 Physical Exam Nursing note and vitals reviewed. Constitutional: He is oriented to person, place, and time. He appears well-devel oped and well-nourished. No distress. HENT: Head: Normocephalic and atraumatic. Right Ear: External ear normal. Left Ear: External ear normal. Mouth/Throat: Oropharynx is clear and moist. No oropharyngeal exudate. Neck: Normal range of motion. Neck supple. Cardiovascular: Normal rate, regular rhythm and normal heart sounds. Pulmonary/Chest: Effort normal and breath sounds normal. Lymphadenopathy: He has no cervical adenopathy. Neurological: He is alert and oriented to person, place, and time. Skin: Skin is warm and dry. He is not diaphoretic. No pallor. Psychiatric: He has a normal mood and affect. His behavior is normal. Judgment a nd thought content normal. ASSESSMENT and PLAN: 1. Runny nose (478.19) niacin (NIACOR) 500 mg Oral tablet, aspirin (ENID) 81 m g Oral Tab, MULTIVITS-MINERALS/FA/LYCOPENE (ONE-A-DAY MEN'S ORAL), fluticasone ( FLONASE) 50 mcg/spray Both Nostril SpSn 2. Acute URI (465.9) niacin (NIACOR) 500 mg Oral tablet, aspirin (ENID) 81 mg Oral Tab, MULTIVITS-MINERALS/FA/LYCOPENE (ONE-A-DAY MEN'S ORAL), fluticasone (FL ONASE) 50 mcg/spray Both Nostril SpSn 3. Hyperlipidemia (272.4) 4. CAD (coronary artery disease) (414.00) 1. RX as above -Zyrtec OTC 2. Plenty of fluids and rest 3. RTC if symptoms do not improve RDING CLERK documented in this encounter Plan of Treatment Not on filedocumented as of this encounter Visit Diagnoses Diagnosis Runny nose Other diseases of nasal cavity and sinu ses Acute URI Acute upper respiratory infections of u nspecified site Hyperlipidemia Other and unspecified hyperlipidemia CAD (coronary artery disease) Coronary atherosclerosis of unspecified type of vessel, [place] or graft documented in this encounter
--- OUTSIDE RECORDS SUMMARY | 2020-04-06 19:05 | XMS REPORT | Encounter Summary ---
Author Author [facility] Organization [facility] Address Unknown Phone Unavailable Care Team Providers Care Screen Vent Binder Name Role Phone PCP Unavailable Encounter Details Care Team Description Date Type Department Lynn Carrion, ASSOCIATE DOCTOR [address] [place] [address] 10/12/1999 Outpatient [facility] Medicine [address] [address] Social History Date Tobacco Use Types Packs/Day Years Used Never Assessed Sex Assigned at Date Recorded Not on file Industry Job Start Date Occupation Not on file Not on file Not on file Travel End Travel History Travel Start No recent travel history available. documented as of this encounter Plan of Treatment Not on filedocumented as of this encounter Visit Diagnoses Not on filedocumented in this encounter
--- OUTSIDE RECORDS SUMMARY | 2020-04-06 19:05 | XMS REPORT | Encounter Summary ---
Author Author [facility] Organization [facility] Address Unknown Phone Unavailable Care Team Providers Care Hot Air Furnace Installer Repairer Name Role Phone PCP Unavailable Encounter Details Care Team Description Date Type Department Self, Braulio Busch MD [address] [place] [phone] Special Screening for Malignant Neoplasm of Prostate (Primary Dx) 10/03/[address] [facility] [place] [address] [place] [address] Social History Date Tobacco Use [...] as of this encounter Visit Diagnoses Diagnosis Special screening for malignant neoplas m of prostate - Primary documented in this encounter
--- OUTSIDE RECORDS SUMMARY | 2020-04-06 19:05 | XMS REPORT | Encounter Summary ---
Author Author [facility] Organization [facility] Address Unknown Phone Unavailable Care Team Providers Care Storage Battery Inspector Name Role Phone PCP Unavailable Encounter Details Care Team Description Date Type Department Lynn Carrion, WEBSITE DESIGNER [address] [place] [address] Abdominal pain, left lower quadrant (Lu larkin Dx) 10/12/1999 Outpatient [facility] [address] [address] Social History Date Tobacco Use [...] as of this encounter Visit Diagnoses Diagnosis Abdominal pain, left lower quadrant - P rimary documented in this encounter
--- OUTSIDE RECORDS SUMMARY | 2020-04-06 19:05 | XMS REPORT | Encounter Summary ---
Author Author [facility] Organization [facility] Address Unknown Phone Unavailable Care Team Providers Care Hydraulic Miner Blasting Name Role Phone PCP Unavailable Encounter Details Care Team Description Date Type Department Israel Yi [phone] Abdominal pain, unspecified site (Primar y Dx) 10/18/1999 Outpatient [facility] Consol idated Historical [address] [address] Social History Date Tobacco Use Types Packs/Day [...] this encounter Visit Diagnoses Diagnosis Abdominal pain, unspecified site - Prim nav documented in this encounter
--- OUTSIDE RECORDS SUMMARY | 2020-04-06 19:05 | XMS REPORT | Encounter Summary ---
Author Author [facility] Organization [facility] Address Unknown Phone Unavailable Care Team Providers Care Travel Attendants Name Role Phone PCP Unavailable Reason for Visit * Reason Comments Immunization/Injection flu shot Encounter Details Care Team Description Date Type Department Nurse Mark Need for influenza vaccine (Primary Dx) 09/01/2010 Immunization [facility] [place] [address] [place] [address] Social History Date Tobacco Use [...] encounter Visit Diagnoses Diagnosis Need for influenza vaccine - Primary Need for prophylactic vaccination and i noculation against influenza documented in this encounter
--- OUTSIDE RECORDS SUMMARY | 2020-04-06 19:05 | XMS REPORT | Encounter Summary ---
Author Author [facility] Organization [facility] Address Unknown Phone Unavailable Care Team Providers Care Vp Business Development Name Role Phone PCP Unavailable Reason for Visit * Reason Comments Immunization/Injection wants flu shot Encounter Details Care Team Description Date Type Department Nurse Mark Needs flu shot (Primary Dx) 09/09/2011 Immunization [facility] [place] [address] [place] [address] Social History Date Tobacco Use [...] as of this encounter Visit Diagnoses Diagnosis Needs flu shot - Primary Need for prophylactic vaccination and i noculation against influenza documented in this encounter
--- OUTSIDE RECORDS SUMMARY | 2020-04-06 19:05 | XMS REPORT | Encounter Summary ---
Author Author [facility] Organization [facility] Address Unknown Phone Unavailable Care Team Providers Care Tailercpa Name Role Phone PCP Unavailable Encounter Details Care Team Description Date Type Department Leisure, Cm Conley APRN NO ADDRESS ON FILE 02/20/2003 Outpatient [facility] Historical Social History Date Tobacco Use Types Packs/Day [...]
--- OUTSIDE RECORDS SUMMARY | 2020-04-06 19:07 | XMS REPORT | Continuity of Care Document ---
Author Organization Unknown Address Unknown Phone Unavailable Allergies Active Description Code Type Severity Reaction Onset Reported/Identified Relationship to Patient Clinical Status Yes NO KNOWN DRUG ALLERGIES NO KNOWN DRUG ALLERG UNKNOWN Yes NO KNOWN DRUG ALLERGIES UNKNOWN NO KNOWN DRUG ALLERG Yes NO KNOWN DRUG ALLERGIES UNKNOWN UNKNOWN Yes NKANo Known Allergies NKA Miscellaneous Allergy Mild N/A 04/01/2009 Yes statin med statin med Unknown N/A 07/22/2014 Yes codeine [id number] Drug Allergy Mild Altered taste 02/13/2015 Yes Zfoulqc-Yed-Csa Reductase Inhibitor [id number] Drug Allergy Unknown N/A 03/12/2019 Medications Medication Packaging Start Date St op Date Route Dosage Sig HYDROCODONE/APAP 5MG/325MG T AB 5 MG/325MG (HAILY-TAB 5/325) TAB 03/18/2017 03/18/2017 ONCE&1053 DEXAMETHASONE VIAL INJ 10 MG/CC (DECADRON VIAL) MG 03/18/2017 03/18/2017 ONCE&1053 Potassium Chloride Powder fo r Oral Soln 20mEQ packet MEQ 03/12/2019 03/12/2019 ONCE&1749 ALPRAZOLAM TAB 0.25 MG (XANAX) MG 03/12/2019 03/12/2019 ONCE&1823 APIXABAN TAB 5 MG (ELIQUIS) Dose(s) 03/12/2019 03/19/2019 BID&0800,2000 LEVALBUTEROL LIQ 1.25 MG/3ML (XOPENEX) MG 03/12/2019 03/19/2019 QID&0600,1100,1600,2100 Potassium Chloride Powder fo r Oral Soln 20mEQ packet MEQ 03/12/2019 03/12/2019 ONCE&2200 ALPRAZOLAM TAB 0.25 MG (XANAX) MG 03/12/2019 03/22/2019 PRN Q8H ASA 81MG ENTERIC COATED TAB 81 MG (BABY ASPIRIN EC) MG 03/13/2019 03/19/2019 Daily&0900 FINASTERIDE TAB 5 MG (PROSCAR) MG 03/13/2019 03/19/2019 Daily&0900 FUROSEMIDE VIAL INJ 20 MG (LASIX VIAL) MG 03/13/2019 03/19/2019 Daily&0900 Problems Date Dx Coded Attending Type Code Diagnosis Diagnosed By 11/27/2012 Ot 719.06 JUANY NT EFFUSION- L/LEG 11/27/2012 Ot 959.7 LOWE R LEG INJURY NOS 11/27/2012 Ot E000.8 OT ER EXTERNAL CAUSE STATUS 11/27/2012 Ot E849.0 ACC IDENT IN HOME 11/27/2012 [address]927.0 OVE REXERTION FROM SUDDEN STRENUOUS MOVEM 04/10/2013 MALA DALTON [...] INFARCT 08/02/2013 LA NENA TOMPKINS MD Ot 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 08/02/2013 LA NENA TOMPKINS MD Ot 427.3 1 ATRIAL FIBRILLATION 08/02/2013 LA NENA TOMPKINS MD Ot 564.0 0 UNSPEC CONSTIPATION 08/02/2013 LA NENA TOMPKINS MD Ot 600.0 0 HYPERTROPHY (BENIGN) OF PROSTATE W/O URI 08/02/2013 LA NENA TOMPKINS MD Ot 787.0 1 NAUSEA WITH VOMITING 08/02/2013 LA NENA TOMPKINS MD Ot 789.0 0 ABDOMINAL PAIN, UNSPECIFIED SITE 08/02/2013 LA NENA TOMPKINS MD Ot 789.3 9 ABDOMINAL/PELVIC SWELLING,MASS/LUMP, OTH 08/02/2013 LA NENA TOMPKINS MD Ot V15.8 2 HISTORY OF TOBACCO USE 08/02/2013 LA NENA TOMPKINS MD Ot V45.8 2 PERCUTANEOUS TRANSLUM CORON ANGIOPLASTY 11/03/2013 CHANTE PENNINGTON APRN Ot 427.31 ATRIAL FIBRILLATION 11/03/2013 CHANTE PENNINGTON APRN Ot 553.1 UMBILICAL HERNIA 11/03/2013 CHANTE PENNINGTON APRN Ot 793.4 NOSP (ABN) FINDINGS ON RADIOLOGICAL OT 12/18/2013 YOSICIATLYN ACOSTA CHEMISTRY QUALITY CONTROL TECHNICIAN Ot 427.31 ATRIAL FIBRILLATION 03/31/2014 YOSICAITLYN ACOSTA CHEMISTRY QUALITY CONTROL TECHNICIAN Ot 427.31 ATRIAL FIBRILLATION 05/20/2014 AGUILA ROMANO FACC, ALI FACP CCDS Ot 272.4 HYPERLIPIDEMIA NEC/NOS 05/20/2014 AGUILA ROMANO FACC, ALI FACP CCDS Ot 414.01 CORONARY ATHEROSCLEROSIS OF [place] CORON 05/20/2014 AGUILA ROMANO FACC, ALI FACP CCDS Ot 414.4 CORONARY ATHEROSCLEROSIS DUE TO [place]CIF[place] 05/20/2014 AGUILA ROMANO FACC, ALI FACP CCDS Ot 427.31 ATRIAL FIBRILLATION 05/20/2014 AGUILA ROMANO FACC, ALI FACP CCDS Ot 780.4 DIZZINESS AND GIDDINESS 05/20/2014 AGUILA ROMANO FACC, ALI FACP CCDS Ot 786.09 RESPIRATORY ABNORM NEC 05/20/2014 AGUILA ROMANO FACC, ALI FACP CCDS Ot V45.82 PERCUTANEOUS TRANSLUM CORON ANGIOPLASTY 05/20/2014 AGUILA ROMANO FACC, UZIEL FACP CCDS Ot V58.61 ANTICOAGULANTS,LT,CURRENT USE 05/20/2014 AGUILA ROMANO FACC, UZIEL FACP CCDS Ot V58.69 OTH MED,LT,CURRENT USE 07/16/2014 LANDEN LUCAS APRN Ot 719.43 JOINT PAIN-FOREARM 07/16/2014 LANDEN LUCAS APRN Ot 814.00 FX CARPAL BONE NOS-CLOSE 07/16/2014 LANDEN LUCAS APRN Ot E000.8 OTHER EXTERNAL CAUSE STATUS 07/16/2014 LANDEN LUCAS APRN Ot E927.0 OVEREXERTION FROM SUDDEN STRENUOUS MOVEM 07/21/2014 CAITLYN SANTILLAN CHEMISTRY QUALITY CONTROL TECHNICIAN Ot 427.31 ATRIAL FIBRILLATION 07/22/2014 LANDEN LUCAS APRN Ot 412 OLD MYOCARDIAL INFARCT 07/22/2014 LANDEN LUCAS APRN Ot 724 .2 LUMBAGO 07/22/2014 LANDEN LUCAS APRN Ot 789.09 ABDOMINAL PAIN, OTHER SPECIFIED SITE 07/22/2014 LANDEN LUCAS APRN Ot V58.61 ANTICOAGULANTS,LT,CURRENT USE 07/22/2014 LANDEN LUCAS APRN Ot V58.69 OTH MED,LT,CURRENT USE 10/13/2014 BAICAITLYN ACOSTA CHEMISTRY QUALITY CONTROL TECHNICIAN Ot 427.31 10/22/2014 BAIMACAITLYN L CHEMISTRY QUALITY CONTROL TECHNICIAN Ot 427.31 ATRIAL FIBRILLATION 11/04/2014 BAIMA, CAITLYN L CHEMISTRY QUALITY CONTROL TECHNICIAN Ot 427.31 11/04/2014 BAIMA, CAITLYN L CHEMISTRY QUALITY CONTROL TECHNICIAN Ot 427.31 11/05/2014 BAIMA, CAITLYN L CHEMISTRY QUALITY CONTROL TECHNICIAN Ot 427.31 11/08/2014 BAIMA, CAITLYN L CHEMISTRY QUALITY CONTROL TECHNICIAN Ot 427.31 11/08/2014 BAIMA, CAITLYN L CHEMISTRY QUALITY CONTROL TECHNICIAN Ot 427.31 12/13/2014 SADA PARK MD Ot 564.00 UNSPEC CONSTIPATION 12/13/2014 SADA PARK MD Ot 724 .2 LUMBAGO 12/13/2014 SADA PARK MD Ot V58.61 ANTICOAGULANTS,LT,CURRENT USE 12/18/2014 CAITLYN SANTILLAN CHEMISTRY QUALITY CONTROL TECHNICIAN Ot 427.31 01/04/2015 JUAN GUERRIER DO Ot 724.2 LUMBAGO 01/04/2015 JUAN GUERRIER DO Ot 805.4 FX LUMBAR VERTEBRA-CLOSE 01/04/2015 JUAN GUERRIER DO Ot E000.8 OTHER EXTERNAL CAUSE STATUS 01/04/2015 JUAN GUERRIER DO Ot E927.0 OVEREXERTION FROM SUDDEN STRENUOUS MOVEM 02/02/2015 YOSICAITLYN ACOSTA CHEMISTRY QUALITY CONTROL TECHNICIAN Ot 427.31 ATRIAL FIBRILLATION 02/13/2015 Ot 427.31 02/13/2015 Ot 553.1 02/13/2015 Ot 793.4 02/13/2015 Ot 427.31 02/13/2015 LANDEN LUCAS MANAGER MAC Ot 719.45 JOINT PAIN-PELVIS 02/13/2015 LANDEN LUCAS MANAGER MAC Ot 724 .2 LUMBAGO 03/18/2017 Landen Lucas W 716.26 ALLERGIC ARTHRITIS INVOLVING LOWER LEG 03/18/2017 Landen Lucas 719.06 EFFUSION OF LOWER LEG JOINT 03/18/2017 Landen Lucas W M13.861 OTHER SPECIFIED ARTHRITIS, RIGHT KNEE 03/18/2017 Landen Lucas M25.461 EFFUSION, RIGHT KNEE 09/13/2017 414.00 COR ONARY A 09/13/2017 W 569.89 OTH ER SPECIFIED DISORDERS OF INTESTINES 09/13/2017 W 596.54 FABIO ROGENIC BLADDER NOS 09/13/2017 W 600.20 JAYASHREE IGN LOCALIZED HYPERPLASIA OF PROSTATE WITHOUT URINARY OBSTRUCTION AND OTHER LOWER URINARY TRACT SYMPTOMS (LUTS) 09/13/2017 W 715.96 OST EOARTHROSIS, UNSPECIFIED WHETHER GENERALIZED OR LOCALIZED, INVOLVING LOWER LEG 09/13/2017 W 733.00 OST EOPOROSIS, UNSPECIFIED 09/13/2017 W 793.4 NONS PECIFIC (ABNORMAL) FINDINGS ON RADIOLOGICAL AND OTHER EXAMINATION OF GASTROINTESTINAL TRACT 09/13/2017 W 805.8 CLOS ED FRACTURE OF UNSPECIFIED PART OF VERTEBRAL COLUMN WITHOUT MENTION OF SPINAL CORD INJURY 09/13/2017 W F10.21 ALC OHOL DEPENDENCE, IN REMISSION 09/13/2017 W I25.10 ATH EROSCLEROTIC HEART DISEASE OF [place] [address] CORONARY ARTERY WITHOUT ANGINA PECTORIS 09/13/2017 W K63.89 OTH ER SPECIFIED DISEASES OF INTESTINE 09/13/2017 W M17.9 OSTE OARTHRITIS OF KNEE, UNSPECIFIED 09/13/2017 W M48.50 COL LAPSED VERTEBRA, NOT ELSEWHERE CLASSIFIED, SITE UNSPECIFIED 09/13/2017 W M81.0 AGE- RELATED OSTEOPOROSIS WITHOUT CURRENT PATHOLOGICAL FRACTURE 09/13/2017 W N13.8 OTHE R OBSTRUCTIVE AND REFLUX UROPATHY 09/13/2017 W N31.9 NEUR OMUSCULAR DYSFUNCTION OF BLADDER, UNSPECIFIED 09/13/2017 W N40 ENLARG ED PROSTATE 09/13/2017 W R93.3 ABNO RMAL FINDINGS ON DIAGNOSTIC IMAGING OF OTHER PARTS OF DIGESTIVE TRACT 09/13/2017 W V11.3 PERS ONAL HISTORY OF ALCOHOLISM 09/13/2017 W V15.82 PER ALONZO HISTORY OF TOBACCO USE 09/13/2017 W V45.82 PER CUTANEOUS TRANSLUMINAL CORONARY ANGIOPLASTY, POSTSURGICAL STATUS 09/13/2017 W Z87.891 PE RSONAL HISTORY OF NICOTINE DEPENDENCE 09/13/2017 W Z98.61 COR ONARY ANGIOPLASTY STATUS 10/23/2017 LOIS ROMANO, GLENNY Mccabe Ot B35.4 TINEA CORPORIS 10/23/2017 LOIS ROMANO, GLENNY Mccabe Ot E78.00 PURE HYPERCHOLESTEROLEMIA, UNSPECIFIED 10/23/2017 LOIS ROMANO, GLENNY Mccabe Ot F41.9 ANXIETY DISORDER, UNSPECIFIED 10/23/2017 LOIS ROMANO, GLENNY Mccabe Ot I10 ESSENTIAL (PRIMARY) HYPERTENSION 10/23/2017 GLENNY ABREU MD Ot I25.2 OLD MYOCARDIAL INFARCTION 10/23/2017 GLENNY ABREU MD Ot I48.91 UNSPECIFIED ATRIAL FIBRILLATION 10/23/2017 GLENNY ABREU MD Ot K59.00 CONSTIPATION, UNSPECIFIED 10/23/2017 GLENNY ABREU MD Ot K62.89 OTHER SPECIFIED DISEASES OF ANUS AND REC 10/23/2017 GLENNY ABREU MD Ot N40.0 BENIGN PROSTATIC HYPERPLASIA WITHOUT LOW 10/23/2017 GLENNY ABREU MD Ot Z79.01 SAFETY RISK LEAD (CURRENT) USE OF ANTICOAGULANT 10/23/2017 GLENNY ABREU MD Ot Z79.82 INTERMEDIATE (CURRENT) USE OF ASPIRIN 10/23/2017 GLENNY ABREU MD Ot Z86.718 PERSONAL HISTORY OF OTHER VENOUS THROMBO 10/23/2017 GLENNY ABREU MD Ot Z95.5 PRESENCE OF CORONARY ANGIOPLASTY IMPLANT 10/23/2017 Ot 272.4 HYPE RLIPIDEMIA NEC/NOS 10/23/2017 Ot 414.00 COR ON ATHEROSCLER NOS TYPE VESSEL, NATIV 10/23/2017 Ot V58.69 OTH MED,LT,CURRENT USE 10/23/2017 Ot 414.00 COR ON ATHEROSCLER NOS TYPE VESSEL, NATIV 10/23/2017 Ot 429.3 CARD IOMEGALY 10/23/2017 Ot 786.09 RES PIRATORY ABNORM NEC 10/23/2017 Ot 414.00 COR ON ATHEROSCLER NOS TYPE VESSEL, NATIV 10/23/2017 Ot 425.4 PRIM CARDIOMYOPATHY NEC 10/23/2017 Ot 786.09 RES PIRATORY ABNORM NEC 10/23/2017 Ot 272.4 HYPE RLIPIDEMIA NEC/NOS 10/23/2017 Ot 414.01 COR ONARY ATHEROSCLEROSIS OF [place] [address] CORON 10/23/2017 Ot 272.4 HYPE RLIPIDEMIA NEC/NOS 10/23/2017 Ot V58.69 OTH MED,LT,CURRENT USE 10/23/2017 SHA ROMANO, MALA Ot V72.84 EXAM PRE-OPERATIVE NOS 10/23/2017 CAITLYN SANTILLAN CHEMISTRY QUALITY CONTROL TECHNICIAN Ot 272.4 HYPERLIPIDEMIA NEC/NOS 10/23/2017 BAIMA, CAITLYN L CHEMISTRY QUALITY CONTROL TECHNICIAN Ot 272.4 HYPERLIPIDEMIA NEC/NOS 10/23/2017 Ot 427.31 ATR IAL FIBRILLATION 10/23/2017 Ot 553.1 UMBI LICAL HERNIA 10/23/2017 Ot 793.4 NOSP (ABN) FINDINGS ON RADIOLOGICAL OT 10/23/2017 Ot 427.31 ATR IAL FIBRILLATION 10/27/2017 Foster Cantu 791.9 OTHER NONSPECIFIC FINDINGS ON EXAMINATION OF URINE 10/27/2017 Foster Cantu R82.99 OTHER ABNORMAL FINDINGS IN URINE 01/09/2018 Ot 414.00 COR ON ATHEROSCLER NOS TYPE VESSEL, NATIV 01/09/2018 Ot 429.3 CARD IOMEGALY 01/09/2018 Ot 786.09 RES PIRATORY ABNORM NEC 01/09/2018 Ot 414.00 COR ON ATHEROSCLER NOS TYPE VESSEL, NATIV 01/09/2018 Ot 425.4 PRIM CARDIOMYOPATHY NEC 01/09/2018 Ot 786.09 RES PIRATORY ABNORM NEC 01/09/2018 Ot 272.4 HYPE RLIPIDEMIA NEC/NOS 01/09/2018 Ot 414.01 COR ONARY ATHEROSCLEROSIS OF [place] [address] CORON 01/09/2018 Ot 272.4 HYPE RLIPIDEMIA NEC/NOS 01/09/2018 Ot V58.69 OTH MED,LT,CURRENT USE 01/09/2018 SHA ROMANO, MALA Ot V72.84 EXAM PRE-OPERATIVE NOS 01/09/2018 CAITLYN SANTILLAN CHEMISTRY QUALITY CONTROL TECHNICIAN Ot 272.4 HYPERLIPIDEMIA NEC/NOS 01/09/2018 CAITLYN SANTILLAN CHEMISTRY QUALITY CONTROL TECHNICIAN Ot 272.4 HYPERLIPIDEMIA NEC/NOS 01/09/2018 Ot 427.31 ATR IAL FIBRILLATION 01/09/2018 Ot 553.1 UMBI LICAL HERNIA 01/09/2018 Ot 793.4 NOSP (ABN) FINDINGS ON RADIOLOGICAL OT 01/09/2018 Ot 427.31 ATR IAL FIBRILLATION 01/09/2018 Ot 414.00 COR ON ATHEROSCLER NOS TYPE VESSEL, NATIV 01/09/2018 Ot 429.3 CARD IOMEGALY 01/09/2018 Ot 786.09 RES PIRATORY ABNORM NEC 01/09/2018 Ot 414.00 COR ON ATHEROSCLER NOS TYPE VESSEL, NATIV 01/09/2018 Ot 425.4 PRIM CARDIOMYOPATHY NEC 01/09/2018 Ot 786.09 RES PIRATORY ABNORM NEC 01/09/2018 Ot 272.4 HYPE RLIPIDEMIA NEC/NOS 01/09/2018 Ot 414.01 COR ONARY ATHEROSCLEROSIS OF [place] [address] CORON 01/09/2018 Ot 272.4 HYPE RLIPIDEMIA NEC/NOS 01/09/2018 Ot V58.69 OTH MED,LT,CURRENT USE 01/09/2018 SHA ROMANO, MALA Ot V72.84 EXAM PRE-OPERATIVE NOS 01/09/2018 BAIMA, CAITLYN L CHEMISTRY QUALITY CONTROL TECHNICIAN Ot 272.4 HYPERLIPIDEMIA NEC/NOS 01/09/2018 BAIMA, CAITLYN L CHEMISTRY QUALITY CONTROL TECHNICIAN Ot 272.4 HYPERLIPIDEMIA NEC/NOS 01/09/2018 Ot 427.31 ATR IAL FIBRILLATION 01/09/2018 Ot 553.1 UMBI LICAL HERNIA 01/09/2018 Ot 793.4 NOSP (ABN) FINDINGS ON RADIOLOGICAL OT 01/09/2018 Ot 427.31 ATR IAL FIBRILLATION 01/11/2018 HEARNDON DO, TOMAS L Ot M54.14 RADICULOPATHY, THORACIC REGION 01/12/2018 HEARNDON DO, TOMAS L Ot M54.14 RADICULOPATHY, THORACIC REGION 03/11/2019 BAIMA, CAITLYN L CHEMISTRY QUALITY CONTROL TECHNICIAN Ot 272.4 HYPERLIPIDEMIA NEC/NOS 03/11/2019 Ot 427.31 ATR IAL FIBRILLATION 03/11/2019 Ot 553.1 UMBI LICAL HERNIA 03/11/2019 Ot 793.4 NOSP (ABN) FINDINGS ON RADIOLOGICAL OT 03/11/2019 Ot 427.31 ATR IAL FIBRILLATION 03/11/2019 MARISSA VALLECILLO MD Ot D69.6 THROMBOCYTOPENIA, UNSPECIFIED 03/11/2019 MARISSA VALLECILLO MD Ot E78.00 PURE HYPERCHOLESTEROLEMIA, UNSPECIFIED 03/11/2019 MARISSA VALLECILLO MD Ot F41.9 ANXIETY DISORDER, UNSPECIFIED 03/11/2019 MARISSA VALLECILLO MD Ot G89.29 OTHER CHRONIC PAIN 03/11/2019 MARISSA VALLECILLO MD Ot I11.0 HYPERTENSIVE HEART DISEASE WITH HEART FA 03/11/2019 MARISSA VALLECILLO MD Ot I25.10 ATHSCL HEART DISEASE OF [place] [address] CORONARY 03/11/2019 MARISSA VALLECILLO MD Ot I25.2 OLD MYOCARDIAL INFARCTION 03/11/2019 MARISSA VALLECILLO MD Ot I27.20 PULMONARY HYPERTENSION, UNSPECIFIED 03/11/2019 MARISSA VALLECILLO MD Ot I34.0 NONRHEUMATIC MITRAL (VALVE) INSUFFICIENC 03/11/2019 MARISSA VALLECILLO MD Ot I48.0 PAROXYSMAL ATRIAL FIBRILLATION 03/11/2019 MARISSA VALLECILLO MD, Ot I50.22 CHRONIC SYSTOLIC (CONGESTIVE) HEART FAIL 03/11/2019 MARISSA VALLECILLO MD, Ot K22.5 DIVERTICULUM OF ESOPHAGUS, ACQUIRED 03/11/2019 MARISSA VALLECILLO MD Ot M54.5 LOW BACK PAIN 03/11/2019 MARISSA VALLECILLO MD, Ot N40.0 BENIGN PROSTATIC HYPERPLASIA WITHOUT LOW 03/11/2019 MARISSA VALLECILLO MD Ot R13.10 DYSPHAGIA, UNSPECIFIED 03/11/2019 MARISSA VALLECILLO MD, Ot R42 DIZZINESS AND GIDDINESS 03/11/2019 MARISSA VALLECILLO MD, Ot Z79.01 SAFETY RISK LEAD (CURRENT) USE OF ANTICOAGULANT 03/11/2019 MARISSA VALLECILLO MD Ot Z86.718 PERSONAL HISTORY OF OTHER VENOUS THROMBO 03/11/2019 MARISSA VALLECILLO MD Ot Z95.5 PRESENCE OF CORONARY ANGIOPLASTY IMPLANT 03/12/2019 Ot 427.31 ATR IAL FIBRILLATION 03/12/2019 Ot 553.1 UMBI LICAL HERNIA 03/12/2019 Ot 793.4 NOSP (ABN) FINDINGS ON RADIOLOGICAL OT 03/12/2019 Ot 427.31 ATR IAL FIBRILLATION 03/12/2019 DANIELITO CURTIS DO Ot E78.00 PURE HYPERCHOLESTEROLEMIA, UNSPECIFIED 03/12/2019 DANIELITO CURTIS DO, Ot F41.9 ANXIETY DISORDER, UNSPECIFIED 03/12/2019 DANIELITO CURTIS DO Ot I1 0 ESSENTIAL (PRIMARY) HYPERTENSION 03/12/2019 DANIELITO CURTIS DO, Ot I25.2 OLD MYOCARDIAL INFARCTION 03/12/2019 DANIELITO CURTIS DO, Ot I48.0 PAROXYSMAL ATRIAL FIBRILLATION 03/12/2019 DANIELITO CURTIS DO, Ot R06.02 SHORTNESS OF BREATH 03/12/2019 DANIELITO CURTIS DO Ot Z79.01 SAFETY RISK LEAD (CURRENT) USE OF ANTICOAGULANT 03/12/2019 DANIELITO CURTIS DO Ot Z79.82 INTERMEDIATE (CURRENT) USE OF ASPIRIN 03/12/2019 DANIELITO CURTIS DO, Ot Z86.718 PERSONAL HISTORY OF OTHER VENOUS THROMBO 03/12/2019 EVER DANIELITO PRITCHARD Ot Z87.448 PERSONAL HISTORY OF OTHER DISEASES OF UR 03/12/2019 DANIELITO CURTIS DO Ot Z88.5 ALLERGY STATUS TO NARCOTIC AGENT STATUS 03/12/2019 EVER DANIELITO PRITCHARD Ot Z88.8 ALLERGY STATUS TO OTH DRUG/MEDS/BIOL SUB 03/12/2019 EVER DANIELITO PRITCHARD Ot Z95.5 PRESENCE OF CORONARY ANGIOPLASTY IMPLANT 03/12/2019 Jessi Matthews W 427.31 ATRIAL FIBRILLATION 03/12/2019 Matthews, Jailene-Naomy W 511.1 PLEURISY WITH EFFUSION, WITH MENTION OF A BACTERIAL CAUSE OTHER THAN TUBERCULOSIS 03/12/2019 Jeyson Matthewsu W I48.91 UNSPECIFIED ATRIAL FIBRILLATION 03/12/2019 Matthews, Jeysonu W J90 PLEURAL EFFUSION, NOT ELSEWHERE CLASSIFIED 03/12/2019 Matthews, KathrynNaomy W 427.31 ATRIAL FIBRILLATION 03/12/2019 Matthews, Jailene-Naomy W 511.1 PLEURISY WITH EFFUSION, WITH MENTION OF A BACTERIAL CAUSE OTHER THAN TUBERCULOSIS 03/12/2019 Kathryn MatthewsNaomy W 786.09 OTHER DYSPNEA AND RESPIRATORY ABNORMALITY 03/12/2019 Jeyson Matthewsu W I48.91 UNSPECIFIED ATRIAL FIBRILLATION 03/12/2019 Matthews, Jeysonu W J90 PLEURAL EFFUSION, NOT ELSEWHERE CLASSIFIED 03/12/2019 Kathryn MatthewsNaomy W R06.00 DYSPNEA, UNSPECIFIED 03/12/2019 W 427.31 ATR IAL FIBRILLATION 03/12/2019 W 786.05 SHAHRIAR RTNESS OF BREATH 03/12/2019 W 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 03/12/2019 W R06.02 SHAHRIAR RTNESS OF BREATH 03/13/2019 Jeyson Matthewsu W 276.8 HYPOPOTASSEMIA 03/13/2019 Matthews, Jailene-Naomy W 427.31 ATRIAL FIBRILLATION 03/13/2019 Matthews, Jailene-Naomy W 511.1 PLEURISY WITH EFFUSION, WITH MENTION OF A BACTERIAL CAUSE OTHER THAN TUBERCULOSIS 03/13/2019 Kathryn MatthewsNaomy W 600.20 BENIGN LOCALIZED HYPERPLASIA OF PROSTATE WITHOUT URINARY OBSTRUCTION AND OTHER LOWER URINARY TRACT SYMPTOMS (LUTS) 03/13/2019 Kathryn MatthewsNaomy W 786.09 OTHER DYSPNEA AND RESPIRATORY ABNORMALITY 03/13/2019 Jessi Matthews W E87.6 HYPOKALEMIA 03/13/2019 Jessi Matthews W I48.91 UNSPECIFIED ATRIAL FIBRILLATION 03/13/2019 Jessi Matthews W J90 PLEURAL EFFUSION, NOT ELSEWHERE CLASSIFIED 03/13/2019 Jesis Matthews W N40.0 BENIGN PROSTATIC HYPERPLASIA WITHOUT LOWER URINRY TRACT SYMP 03/13/2019 Jessi Matthews W R06.00 DYSPNEA, UNSPECIFIED 03/13/2019 MARISSA VALLECILLO MD M Ot D69.6 THROMBOCYTOPENIA, UNSPECIFIED 03/13/2019 MARISSA VALLECILLO MD Ot E78.00 PURE HYPERCHOLESTEROLEMIA, UNSPECIFIED 03/13/2019 MARISSA VALLECILLO MD Ot F41.9 ANXIETY DISORDER, UNSPECIFIED 03/13/2019 MARISSA VALLECILLO MD Ot G89.29 OTHER CHRONIC PAIN 03/13/2019 MARISSA VALLECILLO MD Ot I11.0 HYPERTENSIVE HEART DISEASE WITH HEART FA 03/13/2019 MARISSA VALLECILLO MD Ot I25.10 ATHSCL HEART DISEASE OF [place] CORONARY 03/13/2019 MARISSA VALLECILLO MD Ot I25.2 OLD MYOCARDIAL INFARCTION 03/13/2019 MARISSA VALLECILLO MD Ot I27.20 PULMONARY HYPERTENSION, UNSPECIFIED 03/13/2019 MARISSA VALLECILLO MD Ot I34.0 NONRHEUMATIC MITRAL (VALVE) INSUFFICIENC 03/13/2019 MARISSA VALLECILLO MD Ot I48.0 PAROXYSMAL ATRIAL FIBRILLATION 03/13/2019 MARISSA VALLECILLO MD M Ot I50.22 CHRONIC SYSTOLIC (CONGESTIVE) HEART FAIL 03/13/2019 MARISSA VALLECILLO MD M Ot K22.5 DIVERTICULUM OF ESOPHAGUS, ACQUIRED 03/13/2019 MARISSA VALLECILLO MD Ot M54.5 LOW BACK PAIN 03/13/2019 MARISSA VALLECILLO MD Ot N40.0 BENIGN PROSTATIC HYPERPLASIA WITHOUT LOW 03/13/2019 MARISSA VALLECILLO MD Ot R13.10 DYSPHAGIA, UNSPECIFIED 03/13/2019 MARISSA VALLECILLO MD Ot R42 DIZZINESS AND GIDDINESS 03/13/2019 MARISSA VALLECILLO MD Ot Z79.01 INTERMEDIATE (CURRENT) USE OF ANTICOAGULANT 03/13/2019 MARISSA VALLECILLO MD Ot Z86.718 PERSONAL HISTORY OF OTHER VENOUS THROMBO 03/13/2019 MARISSA VALLECILLO MD Ot Z95.5 PRESENCE OF CORONARY ANGIOPLASTY IMPLANT 03/13/2019 MARISSA VALLECILLO MD Ot D69.6 THROMBOCYTOPENIA, UNSPECIFIED 03/13/2019 MARISSA VALLECILLO MD Ot E78.00 PURE HYPERCHOLESTEROLEMIA, UNSPECIFIED 03/13/2019 MARISSA VALLECILLO MD Ot F41.9 ANXIETY DISORDER, UNSPECIFIED 03/13/2019 MARISSA VALLECILLO MD Ot G89.29 OTHER CHRONIC PAIN 03/13/2019 MARISSA VALLECILLO MD Ot I11.0 HYPERTENSIVE HEART DISEASE WITH HEART FA 03/13/2019 MARISSA VALLECILLO MD Ot I25.10 ATHSCL HEART DISEASE OF [place] CORONARY 03/13/2019 MARISSA VALLECILLO MD Ot I25.2 OLD MYOCARDIAL INFARCTION 03/13/2019 MARISSA VALLECILLO MD Ot I27.20 PULMONARY HYPERTENSION, UNSPECIFIED 03/13/2019 MARISSA VALLECILLO MD Ot I34.0 NONRHEUMATIC MITRAL (VALVE) INSUFFICIENC 03/13/2019 MARISSA VALLECILLO MD Ot I48.0 PAROXYSMAL ATRIAL FIBRILLATION 03/13/2019 MARISSA VALLECILLO MD Ot I50.22 CHRONIC SYSTOLIC (CONGESTIVE) HEART FAIL 03/13/2019 MARISSA VALLECILLO MD Ot K22.5 DIVERTICULUM OF ESOPHAGUS, ACQUIRED 03/13/2019 MARISSA VALLECILLO MD Ot M54.5 LOW BACK PAIN 03/13/2019 MARISSA VALLECILLO MD Ot N40.0 BENIGN PROSTATIC HYPERPLASIA WITHOUT LOW 03/13/2019 MARISSA VALLECILLO MD Ot R13.10 DYSPHAGIA, UNSPECIFIED 03/13/2019 MARISSA VALLECILLO MD Ot R42 DIZZINESS AND GIDDINESS 03/13/2019 MARISSA VALLECILLO MD Ot Z79.01 INTERMEDIATE (CURRENT) USE OF ANTICOAGULANT 03/13/2019 MARISSA VALLECILLO MD Ot Z86.718 PERSONAL HISTORY OF OTHER VENOUS THROMBO 03/13/2019 MARISSA VALLECILLO MD Ot Z95.5 PRESENCE OF CORONARY ANGIOPLASTY IMPLANT 03/13/2019 MARISSA VALLECILLO MD Ot D69.6 THROMBOCYTOPENIA, UNSPECIFIED 03/13/2019 MARISSA VALLECILLO MD Ot E78.00 PURE HYPERCHOLESTEROLEMIA, UNSPECIFIED 03/13/2019 MARISSA VALLECILLO MD Ot F41.9 ANXIETY DISORDER, UNSPECIFIED 03/13/2019 MARISSA VALLECILLO MD Ot G89.29 OTHER CHRONIC PAIN 03/13/2019 MARISSA VLALECILLO MD Ot I11.0 HYPERTENSIVE HEART DISEASE WITH HEART FA 03/13/2019 MARISSA VALLECILLO MD Ot I25.10 ATHSCL HEART DISEASE OF [place] CORONARY 03/13/2019 MARISSA VALLECILLO MD Ot I25.2 OLD MYOCARDIAL INFARCTION 03/13/2019 MARISSA VALLECILLO MD Ot I27.20 PULMONARY HYPERTENSION, UNSPECIFIED 03/13/2019 MARISSA VALLECILLO MD Ot I34.0 NONRHEUMATIC MITRAL (VALVE) INSUFFICIENC 03/13/2019 MARISSA VALLECILLO MD Ot I48.0 PAROXYSMAL ATRIAL FIBRILLATION 03/13/2019 MARISSA VALLECILLO MD Ot I50.22 CHRONIC SYSTOLIC (CONGESTIVE) HEART FAIL 03/13/2019 MARISSA VALLECILLO MD Ot K22.5 DIVERTICULUM OF ESOPHAGUS, ACQUIRED 03/13/2019 MARISSA VALLECILLO MD Ot M54.5 LOW BACK PAIN 03/13/2019 MARISSA VALLECILLO MD Ot N40.0 BENIGN PROSTATIC HYPERPLASIA WITHOUT LOW 03/13/2019 MARISSA VALLECILLO MD Ot R13.10 DYSPHAGIA, UNSPECIFIED 03/13/2019 MARISSA VALLECILLO MD Ot R42 DIZZINESS AND GIDDINESS 03/13/2019 MARISSA VALLECILLO MD Ot Z79.01 INTERMEDIATE (CURRENT) USE OF ANTICOAGULANT 03/13/2019 MARISSA VALLECILLO MD Ot Z86.718 PERSONAL HISTORY OF OTHER VENOUS THROMBO 03/13/2019 MARISSA VALLECILLO MD Ot Z95.5 PRESENCE OF CORONARY ANGIOPLASTY IMPLANT 03/13/2019 MARISSA VALLECILLO MD Ot D69.6 THROMBOCYTOPENIA, UNSPECIFIED 03/13/2019 MARISSA VALLECILLO MD Ot E78.00 PURE HYPERCHOLESTEROLEMIA, UNSPECIFIED 03/13/2019 MARISSA VALLECILLO MD Ot F41.9 ANXIETY DISORDER, UNSPECIFIED 03/13/2019 MARISSA VALLECILLO MD Ot G89.29 OTHER CHRONIC PAIN 03/13/2019 MARISSA VALLECILLO MD Ot I11.0 HYPERTENSIVE HEART DISEASE WITH HEART FA 03/13/2019 MARISSA VALLECILLO MD Ot I25.10 ATHSCL HEART DISEASE OF [place] [address] CORONARY 03/13/2019 MARISSA VALLECILLO MD Ot I25.2 OLD MYOCARDIAL INFARCTION 03/13/2019 MARISSA VALLECILLO MD Ot I27.20 PULMONARY HYPERTENSION, UNSPECIFIED 03/13/2019 MARISSA VALLECILLO MD Ot I34.0 NONRHEUMATIC MITRAL (VALVE) INSUFFICIENC 03/13/2019 MARISSA VALLECILLO MD Ot I48.0 PAROXYSMAL ATRIAL FIBRILLATION 03/13/2019 MARISSA VALLECILLO MD Ot I50.22 CHRONIC SYSTOLIC (CONGESTIVE) HEART FAIL 03/13/2019 MARISSA VALLECILLO MD Ot K22.5 DIVERTICULUM OF ESOPHAGUS, ACQUIRED 03/13/2019 MARISSA VALLECILLO MD Ot M54.5 LOW BACK PAIN 03/13/2019 MARISSA VALLECILLO MD Ot N40.0 BENIGN PROSTATIC HYPERPLASIA WITHOUT LOW 03/13/2019 MARISSA VALLECILLO MD Ot R13.10 DYSPHAGIA, UNSPECIFIED 03/13/2019 MARISSA VALLECILLO MD Ot R42 DIZZINESS AND GIDDINESS 03/13/2019 MARISSA VALLECILLO MD Ot Z79.01 INTERMEDIATE (CURRENT) USE OF ANTICOAGULANT 03/13/2019 MARISSA VALLECILLO MD Ot Z86.718 PERSONAL HISTORY OF OTHER VENOUS THROMBO 03/13/2019 MARISSA VALLECILLO MD Ot Z95.5 PRESENCE OF CORONARY ANGIOPLASTY IMPLANT 03/13/2019 MARISSA VALLECILLO MD Ot D69.6 THROMBOCYTOPENIA, UNSPECIFIED 03/13/2019 MARISSA VALLECILLO MD Ot E78.00 PURE HYPERCHOLESTEROLEMIA, UNSPECIFIED 03/13/2019 MARISSA VALLECILLO MD Ot F41.9 ANXIETY DISORDER, UNSPECIFIED 03/13/2019 MARISSA VALLECILLO MD Ot G89.29 OTHER CHRONIC PAIN 03/13/2019 MARISSA VALLECILLO MD Ot I11.0 HYPERTENSIVE HEART DISEASE WITH HEART FA 03/13/2019 MARISSA VALLECILLO MD, Ot I25.10 ATHSCL HEART DISEASE OF [place] [address] CORONARY 03/13/2019 MARISSA VALLECILLO MD Ot I25.2 OLD MYOCARDIAL INFARCTION 03/13/2019 MARISSA VALLECILLO MD Ot I27.20 PULMONARY HYPERTENSION, UNSPECIFIED 03/13/2019 MARISSA VALLECILLO MD Ot I34.0 NONRHEUMATIC MITRAL (VALVE) INSUFFICIENC 03/13/2019 MARISSA VALLECILLO MD, Ot I48.0 PAROXYSMAL ATRIAL FIBRILLATION 03/13/2019 MARISSA VALLECILLO MD Ot I50.22 CHRONIC SYSTOLIC (CONGESTIVE) HEART FAIL 03/13/2019 MARISSA VALLECILLO MD Ot K22.5 DIVERTICULUM OF ESOPHAGUS, ACQUIRED 03/13/2019 MARISSA VALLECILLO MD Ot M54.5 LOW BACK PAIN 03/13/2019 MARISSA VALLECILLO MD Ot N40.0 BENIGN PROSTATIC HYPERPLASIA WITHOUT LOW 03/13/2019 MARISSA VALLECILLO MD Ot R13.10 DYSPHAGIA, UNSPECIFIED 03/13/2019 MARISSA VALLECILLO MD Ot R42 DIZZINESS AND GIDDINESS 03/13/2019 MARISSA VALLECILLO MD, Ot Z79.01 SAFETY RISK LEAD (CURRENT) USE OF ANTICOAGULANT 03/13/2019 MARISSA VALLECILLO MD Ot Z86.718 PERSONAL HISTORY OF OTHER VENOUS THROMBO 03/13/2019 MARISSA VALLECILLO MD Ot Z95.5 PRESENCE OF CORONARY ANGIOPLASTY IMPLANT 03/14/2019 DANIELITO CURTIS DO Ot E78.00 PURE HYPERCHOLESTEROLEMIA, UNSPECIFIED 03/14/2019 DANIELITO CURTIS DO, Ot F41.9 ANXIETY DISORDER, UNSPECIFIED 03/14/2019 DANIELITO CURTIS DO, Ot I1 0 ESSENTIAL (PRIMARY) HYPERTENSION 03/14/2019 DANIELITO CURTIS DO, Ot I25.2 OLD MYOCARDIAL INFARCTION 03/14/2019 DANIELITO CURTIS DO, Ot I48.0 PAROXYSMAL ATRIAL FIBRILLATION 03/14/2019 DANIELITO CURTIS DO, Ot R06.02 SHORTNESS OF BREATH 03/14/2019 DANIELITO CURTIS DO, Ot Z79.01 SAFETY RISK LEAD (CURRENT) USE OF ANTICOAGULANT 03/14/2019 DANIELITO CURTIS DO Ot Z79.82 INTERMEDIATE (CURRENT) USE OF ASPIRIN 03/14/2019 DANIELITO CURTIS DO, Ot Z86.718 PERSONAL HISTORY OF OTHER VENOUS THROMBO 03/14/2019 DANIELITO CURTIS DO, Ot Z87.448 PERSONAL HISTORY OF OTHER DISEASES OF UR 03/14/2019 DANIELITO CURTIS DO, Ot Z88.5 ALLERGY STATUS TO NARCOTIC AGENT STATUS 03/14/2019 DANIELITO CURTIS DO, Ot Z88.8 ALLERGY STATUS TO OT DRUG/MEDS/BIOL SUB 03/14/2019 DANIELITO CURTIS DO, Ot Z95.5 PRESENCE OF CORONARY ANGIOPLASTY IMPLANT 03/19/2019 DANIELITO CURTIS DO, Ot E78.00 PURE HYPERCHOLESTEROLEMIA, UNSPECIFIED 03/19/2019 DANIELITO CURTIS DO, Ot F41.9 ANXIETY DISORDER, UNSPECIFIED 03/19/2019 DANIELITO CURTIS DO, Ot I1 0 ESSENTIAL (PRIMARY) HYPERTENSION 03/19/2019 DANIELITO CURTIS DO, Ot I25.2 OLD MYOCARDIAL INFARCTION 03/19/2019 DANIELITO CURTIS DO, Ot I48.0 PAROXYSMAL ATRIAL FIBRILLATION 03/19/2019 DANIELITO CURTIS DO, Ot R06.02 SHORTNESS OF BREATH 03/19/2019 DANIELITO CURTIS DO, Ot Z79.01 INTERMEDIATE (CURRENT) USE OF ANTICOAGULANT 03/19/2019 DANIELITO CURTIS DO, Ot Z79.82 INTERMEDIATE (CURRENT) USE OF ASPIRIN 03/19/2019 DANIELITO CURTIS DO, Ot Z86.718 PERSONAL HISTORY OF OTHER VENOUS THROMBO 03/19/2019 DANIELITO CURTIS DO, Ot Z87.448 PERSONAL HISTORY OF OTHER DISEASES OF UR 03/19/2019 DANIELITO CURTIS DO, Ot Z88.5 ALLERGY STATUS TO NARCOTIC AGENT STATUS 03/19/2019 DANIELITO CURTIS DO, Ot Z88.8 ALLERGY STATUS TO OT DRUG/MEDS/BIOL SUB 03/19/2019 DANIELITO CURTIS DO, Ot Z95.5 PRESENCE OF CORONARY ANGIOPLASTY IMPLANT 03/20/2019 W 427.31 ATR IAL FIBRILLATION 03/20/2019 W 692.9 CONT ACT DERMATITIS AND OTHER ECZEMA, UNSPECIFIED CAUSE 03/20/2019 W 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 03/20/2019 W 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 03/20/2019 W L30.9 DERM ATITIS, UNSPECIFIED 03/20/2019 W 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 07/19/2019 Matthews, Jailene-Naomy W 530.6 DIVERTICULUM OF ESOPHAGUS, ACQUIRED 07/19/2019 Matthews, Jailene-Naomy W K22.5 DIVERTICULUM OF ESOPHAGUS, ACQUIRED 07/19/2019 Matthews, Jailene-Naomy W 530.6 DIVERTICULUM OF ESOPHAGUS, ACQUIRED 07/19/2019 Matthews, Jailene-Naomy W K22.5 DIVERTICULUM OF ESOPHAGUS, ACQUIRED 07/19/2019 Matthews, Jailene-Naomy W 530.6 DIVERTICULUM OF ESOPHAGUS, ACQUIRED 07/19/2019 Matthews, Jailene-Naomy W 787.20 DYSPHAGIA, UNSPECIFIED 07/19/2019 Matthews, Jailene-Naomy W K22.5 DIVERTICULUM OF ESOPHAGUS, ACQUIRED 07/19/2019 Matthews, Jailene-Naomy W R13.10 DYSPHAGIA, UNSPECIFIED 07/19/2019 Matthews, Jailene-Naomy W 530.6 DIVERTICULUM OF ESOPHAGUS, ACQUIRED 07/19/2019 Matthews, Jailene-Naomy W 783.21 LOSS OF WEIGHT 07/19/2019 Matthews, Jailene-Naomy W 787.20 DYSPHAGIA, UNSPECIFIED 07/19/2019 Matthews, Jailene-Naomy W K22.5 DIVERTICULUM OF ESOPHAGUS, ACQUIRED 07/19/2019 Matthews, Jailene-Naomy W R13.10 DYSPHAGIA, UNSPECIFIED 07/19/2019 Matthews, Jailene-Naomy W R63.4 ABNORMAL WEIGHT LOSS 07/19/2019 Matthews, Jailene-Naomy W 530.6 DIVERTICULUM OF ESOPHAGUS, ACQUIRED 07/19/2019 Matthews, Jailene-Naomy W 783.21 LOSS OF WEIGHT 07/19/2019 Matthews, Jailene-Naomy W 787.20 DYSPHAGIA, UNSPECIFIED 07/19/2019 Matthews, Jailene-Naomy W K22.5 DIVERTICULUM OF ESOPHAGUS, ACQUIRED 07/19/2019 Matthews, Jailene-Naomy W R13.10 DYSPHAGIA, UNSPECIFIED 07/19/2019 Matthews, Jailene-Naomy W R63.4 ABNORMAL WEIGHT LOSS 07/19/2019 Matthews, Jailene-Naomy W 530.6 DIVERTICULUM OF ESOPHAGUS, ACQUIRED 07/19/2019 Matthews, Jailene-Naomy W 783.21 LOSS OF WEIGHT 07/19/2019 Matthews, Jailene-Naomy W 787.20 DYSPHAGIA, UNSPECIFIED 07/19/2019 Matthews, Jailene-Naomy W K22.5 DIVERTICULUM OF ESOPHAGUS, ACQUIRED 07/19/2019 Matthews, Jailene-Naomy W R13.10 DYSPHAGIA, UNSPECIFIED 07/19/2019 Matthews, Jailene-Naomy W R63.4 ABNORMAL WEIGHT LOSS 08/06/2019 Matthews, Jailene-Naomy W 783.0 ANOREXIA 08/06/2019 Matthews, Jailene-Naomy W R63.0 ANOREXIA 08/06/2019 Matthews, Jailene-Naomy W 783.0 ANOREXIA 08/06/2019 Matthews, Jailene-Naomy W R63.0 ANOREXIA 08/06/2019 Matthews, Jailene-Naomy W 783.0 ANOREXIA 08/06/2019 Matthews, Jailene-Naomy W 783.21 LOSS OF WEIGHT 08/06/2019 Matthews, Jailene-Naomy W R63.0 ANOREXIA 08/06/2019 Matthews, Jailene-Naomy W R63.4 ABNORMAL WEIGHT LOSS 08/06/2019 Matthews, Jailene-Naomy W 783.0 ANOREXIA 08/06/2019 Matthews, Jailene-Naomy W 783.21 LOSS OF WEIGHT 08/06/2019 Matthews, Jailene-Naomy W R63.0 ANOREXIA 08/06/2019 Matthews, Jailene-Naomy W R63.4 ABNORMAL WEIGHT LOSS 08/06/2019 Matthews, Jailene-Naomy W 783.0 ANOREXIA 08/06/2019 Matthews, Jailene-Naomy W 783.21 LOSS OF WEIGHT 08/06/2019 Matthews, Jailene-Naomy W R63.0 ANOREXIA 08/06/2019 Matthews, Jailene-Naomy W R63.4 ABNORMAL WEIGHT LOSS 12/13/2019 MALA DALTON MD Ot Z01.81 8 ENCOUNTER FOR OTHER PREPROCEDURAL EXAMIN 12/18/2019 MALA DALTON MD, Ot I25.10 ATHSCL HEART DISEASE OF [place] CORONARY 12/18/2019 MALA DALTON MD, Ot I25.2 OLD MYOCARDIAL INFARCTION 12/18/2019 MALA DALTON MD, Ot I48.91 UNSPECIFIED ATRIAL FIBRILLATION 12/18/2019 MALA DALTON MD, Ot K31.4 GASTRIC DIVERTICULUM 12/18/2019 MALA DALTON MD, Ot K63.5 POLYP OF COLON 12/18/2019 MALA DALTON MD, Ot K64.1 SECOND DEGREE HEMORRHOIDS 12/18/2019 MALA DALTON MD, Ot K64.4 RESIDUAL HEMORRHOIDAL SKIN TAGS 12/18/2019 MALA DALTON MD, Ot R63.4 ABNORMAL WEIGHT LOSS 12/18/2019 MALA DALTON MD, Ot Z79.01 SAFETY RISK LEAD (CURRENT) USE OF ANTICOAGULANT 12/18/2019 MALA DALTON MD, Ot Z79.82 INTERMEDIATE (CURRENT) USE OF ASPIRIN 12/18/2019 MALA DALTON MD, Ot Z79.89 9 OTHER INTERMEDIATE (CURRENT) DRUG THERAPY 12/18/2019 MALA DALTON MD, Ot Z80.1 FAMILY HISTORY OF MALIG NEOPLASM OF TRAC 12/18/2019 MALA DALTON MD, Ot Z82.3 FAMILY HISTORY OF STROKE 12/18/2019 MALA DALTON MD, Ot Z82.49 FAMILY HX OF ISCHEM HEART DIS AND OTH DI 12/18/2019 MALA DALTON MD, Ot Z86.01 0 PERSONAL HISTORY OF COLONIC POLYPS 12/18/2019 MALA DALTON MD, Ot Z88.8 ALLERGY STATUS TO OT DRUG/MEDS/BIOL SUB 12/18/2019 MALA DALTON MD, Ot Z90.89 ACQUIRED ABSENCE OF OTHER ORGANS 12/23/2019 MALA DALTON MD, Ot I25.10 ATHSCL HEART DISEASE OF [place] CORONARY 12/23/2019 MALA DALTON MD, Ot I25.2 OLD MYOCARDIAL INFARCTION 12/23/2019 MALA DALTON MD, Ot I48.91 UNSPECIFIED ATRIAL FIBRILLATION 12/23/2019 MALA DALTON MD, Ot K31.4 GASTRIC DIVERTICULUM 12/23/2019 MALA DALTON MD, Ot K63.5 POLYP OF COLON 12/23/2019 MALA DALTON MD, Ot K64.1 SECOND DEGREE HEMORRHOIDS 12/23/2019 MALA DALTON MD, Ot K64.4 RESIDUAL HEMORRHOIDAL SKIN TAGS 12/23/2019 MALA DALTON MD, Ot R63.4 ABNORMAL WEIGHT LOSS 12/23/2019 MALA DALTON MD, Ot Z79.01 INTERMEDIATE (CURRENT) USE OF ANTICOAGULANT 12/23/2019 MALA DALTON MD, Ot Z79.82 INTERMEDIATE (CURRENT) USE OF ASPIRIN 12/23/2019 MALA DALTON MD, Ot Z79.89 9 OTHER INTERMEDIATE (CURRENT) DRUG THERAPY 12/23/2019 MALA DALTON MD, Ot Z80.1 FAMILY HISTORY OF MALIG NEOPLASM OF [place]AC 12/23/2019 MALA DALTON MD, Ot Z82.3 FAMILY HISTORY OF STROKE 12/23/2019 MALA DALTON MD, Ot Z82.49 FAMILY HX OF ISCHEM HEART DIS AND OTH DI 12/23/2019 MALA DALTON MD, Ot Z86.01 0 PERSONAL HISTORY OF COLONIC POLYPS 12/23/2019 MALA DALTON MD, Ot Z88.8 ALLERGY STATUS TO OT DRUG/MEDS/BIOL SUB 12/23/2019 MALA DALTON MD, Ot Z90.89 ACQUIRED ABSENCE OF OTHER ORGANS Procedures Code Description Performed By Per formed On [id number] RE STORATION OF CARDIAC RHYTHM, SINGLE 03/11/2019 Results Test Result Range Uric Acid - [...] 6.0-8.3 Synovial Fluid Cell Count - 03/18/17 10: 55 Synovial Fluid Appearance Pale Yellow Synovial Fluid Clarity CLOUDY Synovial Fluid Lymphocyte 1 % 0-15 Synovial Fluid Monocytes 7 % >60 Synovial Fluid Neutrophil 92 % 0-25 Synovial Fluid RBC 438 Cells/uL Synovial Fluid WBC 75551 Cells/uL 0-200 Other Culture - 03/18/17 10:55 PRELIM CULTURE RESULTS No Growth 24 hours FINAL CULTURE RESULTS No Growth 48 hours MEDIA PLATED Setup at 10:58 03/18/2017 Crystal,Synovial/Joint Fl - 03/18/17 10: 55 CRYSTAL,SYNOVIAL/JOINT FL NOTE: NONE SEEN Complete urinalysis with reflex to cultu re - 10/23/17 19:44 Urine color determination YELLOW NRG Urine clarity determination CLEAR NR G Urine pH measurement by test strip 5 5-9 Specific gravity of urine by test strip 1.025 1.016-1.022 Urine protein assay by test strip, semi-quantitative NEGATIVE NEGATIVE Urine glucose detection by automated test strip NE GATIVE NEGATIVE Erythrocytes detection in urine sediment by light micr oscopy NEGATIVE NEGATIVE Urine ketones detection by automated test strip NE GATIVE NEGATIVE Urine nitrite detection by test strip NEGATIVE NEGATIVE Urine total bilirubin detection by test strip NEGA TIVE NEGATIVE Urine urobilinogen measurement by automated test strip (mass/volume) NORMAL NORMAL Urine leukocyte esterase detection by dipstick NEG ATIVE NEGATIVE Automated urine sediment erythrocyte cou nt by microscopy (number/high power field) NONE NRG Automated urine sediment leukocyte count by microscopy (number/high power field) NONE NRG Bacteria detection in urine sediment by light microsco py NONE NRG Squamous epithelial cells detection in u rine sediment by light microscopy 0-2 NRG Crystals detection in urine sediment by light microsco py NONE NRG Casts detection in urine sediment by light microscopy NONE NRG Mucus detection in urine sediment by light microscopy NEGATIVE NRG Complete urinalysis with reflex to culture NO NRG Urinalysis - 10/27/17 15:23 Icotest N/A Negative Urine Crystals Calcium Oxalate Urine Volume Urine Volume Sufficient (10mL) Urine-Appearance Clear Clear Urine-Bilirubin Negative Negative Urine-Blood Negative Negative Urine-Color Yellow Colorless-Lt. [place] ow Urine-Epithelial Cells 0-5/HPF Urine-Glucose Negative Negative Urine-Ketones Trace Negative Urine-Leukocytes Negative Negative Urine-Nitrite Positive Negative Urine-pH 6.5 5-8.5 Urine-Protein Negative Negative Urine-Specific [place]irth 1.020 1.000-1 .030 Urine-WBC 0-2/HPF Urobilinogen 0.2 E.U./dL 0.2-1.0 Serum or plasma lithium measurement (mol es/volume) - 03/10/19 03:02 BNP level 215.1 pg/mL <100.0 Complete blood count (CBC) with automate d white blood cell (WBC) differential - 03/10/19 03:52 Blood leukocytes automated count (number/volume) 7.4 10*3/uL 4.3-11.0 Blood erythrocytes automated count (number/volume) 4.66 10*6/uL 4.35-5.85 Venous blood hemoglobin measurement (mass/volume) 14.1 g/dL 13.3-17.7 Blood hematocrit (volume fraction) 41 % 40-54 Automated erythrocyte mean corpuscular volume 89 [ foz_us] 80-99 Automated erythrocyte mean corpuscular h emoglobin (mass per erythrocyte) 30 pg 25-34 Automated erythrocyte mean corpuscular h emoglobin concentration measurement (mass/volume) 34 g/dL 32-36 Automated erythrocyte distribution width ratio 15. 7 % 10.0- 14.5 Automated blood platelet count (count/volume) 121 10*3/uL [...] 10*3 1.0-4.0 Blood monocytes automated count (number/volume) 0. 7 10*3 0.0-1.0 Automated eosinophil count 0.1 10*3/uL 0 .0-0.3 Automated blood basophil count (count/volume) 0.0 10*3/uL 0.0-0.1 PT panel in platelet poor plasma by coag ulation assay - 03/10/19 03:52 Prothrombin time (PT) in platelet poor plasma by coagu lation assay 16.1 s 12.2-14.7 INR in platelet poor plasma or blood by coagulation as say 1.2 0.8-1.4 Activated partial thromboplastin time (a PTT) in platelet poor plasma bycoagulation assay - 03/10/19 03:52 Activated partial thromboplastin time (a PTT) in platelet poor plasma bycoagulation assay 33 s 24-35 Comprehensive metabolic panel - 03/10/19 03:52 Serum or plasma sodium measurement (moles/volume) 140 mmol/L 135-145 Serum or plasma potassium measurement (moles/volume) 3.5 mmol/L 3.6-5.0 Serum or plasma chloride measurement (moles/volume) 109 mmol/L 98-107 Carbon dioxide 19 mmol/L 21-32 Serum or plasma anion gap determination (moles/volume) 12 mmol/L 5-14 Serum or plasma urea nitrogen measurement (mass/volume ) 13 mg/dL 7-18 Serum or plasma creatinine measurement (mass/volume) 0.89 mg/dL 0.60-1.30 Serum or plasma urea nitrogen/creatinine mass ratio 15 NRG Serum or plasma creatinine measurement w ith calculation of estimated glomerular filtration rate > NRG Serum or plasma glucose measurement (mass/volume) 111 mg/dL 70-105 Serum or plasma calcium measurement (mass/volume) 9.5 mg/dL 8.5-10.1 Serum or plasma total bilirubin measurement (mass/volu me) 1.3 mg/dL 0.1-1.0 Serum or plasma alkaline phosphatase praveen surement (enzymatic activity/volume) 52 U/L 40-136 Serum or plasma aspartate aminotransfera se measurement (enzymatic activity/volume) 30 U/L 5-34 Serum or plasma alanine aminotransferase measurement (enzymatic activity/volume) 26 U/L 0-55 Serum or plasma protein measurement (mass/volume) 6.6 g/dL 6.4-8.2 Serum or plasma albumin measurement (mass/volume) 3.9 g/dL 3.2-4.5 CALCIUM CORRECTED 9.6 mg/dL 8.5-10.1 Magnesium - 03/10/19 03:52 Magnesium 2.1 mg/dL 1.8-2.4 Serum or plasma troponin i.cardiac measu rement (mass/volume) - 03/10/19 03:52 Serum or plasma troponin i.cardiac measurement (mass/v olume) < ng/mL <0.028 Myoglobin, serum - 03/10/19 03:52 Myoglobin, serum 64.1 ng/mL 10.0-92.0 Methicillin resistant Staphylococcus aur eus (MRSA) screening culture - 03/10/19 06:40 Methicillin resistant Staphylococcus aureus (MRSA) scr eening culture NEG NRG Serum or plasma troponin i.cardiac measu rement (mass/volume) - 03/10/19 10:15 Serum or plasma troponin i.cardiac measurement (mass/v olume) < ng/mL <0.028 Complete urinalysis with reflex to cultu re - 03/10/19 11:28 Urine color determination YELLOW NRG Urine clarity determination CLEAR NR G Urine pH measurement by test strip 5 5-9 Specific gravity of urine by test strip 1.030 1.016-1.022 Urine protein assay by test strip, semi-quantitative 1+ NEGATIVE Urine glucose detection by automated test strip NE GATIVE NEGATIVE Erythrocytes detection in urine sediment by light micr oscopy NEGATIVE NEGATIVE Urine ketones detection by automated test strip NE GATIVE NEGATIVE Urine nitrite detection by test strip NEGATIVE NEGATIVE Urine total bilirubin detection by test strip NEGA TIVE NEGATIVE Urine urobilinogen measurement by automated test strip (mass/volume) NORMAL NORMAL Urine leukocyte esterase detection by dipstick 1+ NEGATIVE Automated urine sediment erythrocyte cou nt by microscopy (number/high power field) NONE NRG Automated urine sediment leukocyte count by microscopy (number/high power field) [HPF] NRG Bacteria detection in urine sediment by light microsco py FEW NRG Crystals detection in urine sediment by light microsco py NONE NRG Casts detection in urine sediment by light microscopy NONE NRG Mucus detection in urine sediment by light microscopy LARGE NRG Complete urinalysis with reflex to culture NO NRG Serum or plasma creatine kinase measurem ent (enzymatic activity/volume) - 03/11/19 04:10 Serum or plasma creatine kinase measurem ent (enzymatic activity/volume) 14 U/L 30-200 Lipid 1996 panel - 03/11/19 04:10 Serum or plasma triglyceride measurement (mass/volume) 86 mg/dL <150 Serum or plasma cholesterol measurement (mass/volume) 137 mg/dL < 200 Serum or plasma cholesterol in HDL measurement (mass/v olume) 44 mg/dL 40-60 Cholesterol in LDL [mass/volume] in serum or plasma by direct assay 82 mg/dL 1-129 Serum or plasma cholesterol in VLDL measurement (mass/ volume) 17 mg/dL 5-40 Complete blood count (CBC) with automate d white blood cell (WBC) differential - 03/12/19 10:26 Blood leukocytes automated count (number/volume) 6.3 10*3/uL 4.3-11.0 Blood erythrocytes automated count (number/volume) 4.50 10*6/uL 4.35-5.85 Venous blood hemoglobin measurement (mass/volume) 13.8 g/dL 13.3-17.7 Blood hematocrit (volume fraction) 40 % 40-54 Automated erythrocyte mean corpuscular volume 90 [ foz_us] 80-99 Automated erythrocyte mean corpuscular h emoglobin (mass per erythrocyte) 31 pg 25-34 Automated erythrocyte mean corpuscular h emoglobin concentration measurement (mass/volume) 34 g/dL 32-36 Automated erythrocyte distribution width ratio 15. 8 % 10.0- 14.5 Automated blood platelet count (count/volume) 106 10*3/uL [...] 10*3 1.0-4.0 Blood monocytes automated count (number/volume) 0. 7 10*3 0.0-1.0 Automated eosinophil count 0.1 10*3/uL 0 .0-0.3 Automated blood basophil count (count/volume) 0.0 10*3/uL 0.0-0.1 Comprehensive metabolic panel - 03/12/19 10:26 Serum or plasma sodium measurement (moles/volume) 140 mmol/L 135-145 Serum or plasma potassium measurement (moles/volume) 3.6 mmol/L 3.6-5.0 Serum or plasma chloride measurement (moles/volume) 111 mmol/L 98-107 Carbon dioxide 21 mmol/L 21-32 Serum or plasma anion gap determination (moles/volume) 8 mmol/L 5-14 Serum or plasma urea nitrogen measurement (mass/volume ) 9 mg/dL 7-18 Serum or plasma creatinine measurement (mass/volume) 0.72 mg/dL 0.60-1.30 Serum or plasma urea nitrogen/creatinine mass ratio 13 NRG Serum or plasma creatinine measurement w ith calculation of estimated glomerular filtration rate > NRG Serum or plasma glucose measurement (mass/volume) 113 mg/dL 70-105 Serum or plasma calcium measurement (mass/volume) 8.9 mg/dL 8.5-10.1 Serum or plasma total bilirubin measurement (mass/volu me) 1.2 mg/dL 0.1-1.0 Serum or plasma alkaline phosphatase praveen surement (enzymatic activity/volume) 48 U/L 40-136 Serum or plasma aspartate aminotransfera se measurement (enzymatic activity/volume) 39 U/L 5-34 Serum or plasma alanine aminotransferase measurement (enzymatic activity/volume) 24 U/L 0-55 Serum or plasma protein measurement (mass/volume) 6.3 g/dL 6.4-8.2 Serum or plasma albumin measurement (mass/volume) 3.6 g/dL 3.2-4.5 CALCIUM CORRECTED 9.2 mg/dL 8.5-10.1 Magnesium - 03/12/19 10:26 Magnesium 2.1 mg/dL 1.8-2.4 Serum or plasma troponin i.cardiac measu rement (mass/volume) - 03/12/19 10:26 Serum or plasma troponin i.cardiac measurement (mass/v olume) < ng/mL <0.028 Serum or plasma lithium measurement (mol es/volume) - 03/12/19 10:26 BNP level 412.8 pg/mL <100.0 Cardiac Panel - 03/12/19 16:35 CK 281 U/L 26-174 CK-MB 2.4 ng/ml 0.0-9.2 Myoglobin 149.1 ng/ml 1.6-154.9 Troponin <0.020 ng/mL 0.0-0.4 iStat BMP - 03/12/19 16:46 BUN 8 mg/dL 5-25 Chloride 109 mmol/L 95-114 CO2 18 mEq/L 22-33 Creat 0.60 mg/dL 0.50-1.50 eGFR 129 mL/min/1.73m2 >59 Glucose 144 mg/dL 70-110 Ionized Ca 1.25 mmol/L 1.12-1.32 Potassium 3.1 mmol/L 3.5-5.3 Sodium 142 mmol/L 134-148 Urinalysis - 03/12/19 16:55 Icotest N/A Negative Urine Volume Urine Volume Sufficient (10mL) Urine-Appearance Clear Clear Urine-Bacteria Negative Urine-Bilirubin Negative Negative Urine-Blood Negative Negative Urine-Color Yellow Colorless-[place] ow Urine-Epithelial Cells 0-5/HPF Urine-Glucose Negative Negative Urine-Ketones Trace Negative Urine-Leukocytes Negative Negative Urine-Nitrite Negative Negative Urine-Other Urine Saved if Culture Need ed (48hrs from time of collection) Urine-pH 5.0 5-8.5 Urine-Protein Negative Negative Urine-RBC Negative Urine-Specific [place] 1.020 1.000-1 .030 Urine-WBC Negative Urobilinogen 0.2 E.U./dL 0.2-1.0 D-Dimer - 03/13/19 06:00 DDimer 136.00 ng/mL 21.00-229.00 PT panel in platelet poor plasma by coag ulation assay - 04/06/20 17:40 Prothrombin time (PT) in platelet poor plasma by coagu lation assay 15.3 s 12.2-14.7 INR in platelet poor plasma or blood by coagulation as say 1.2 0.8-1.4 Activated partial thromboplastin time (a PTT) in platelet poor plasma bycoagulation assay - 04/06/20 17:40 Activated partial thromboplastin time (a PTT) in platelet poor plasma bycoagulation assay 34 s 24-35 Fibrin D-dimer FEU measurement in platel et poor plasma (mass/volume) - 04/06/20 17:40 Fibrin D-dimer FEU measurement in platelet poor plasma (mass/volume) 1.02 ug/mL 0.00-0.49 Comprehensive metabolic panel - 04/06/20 17:40 Serum or plasma sodium measurement (moles/volume) 141 mmol/L 135-145 Serum or plasma potassium measurement (moles/volume) 3.6 mmol/L 3.6-5.0 Serum or plasma chloride measurement (moles/volume) 108 mmol/L 98-107 Carbon dioxide 21 mmol/L 21-32 Serum or plasma anion gap determination (moles/volume) 12 mmol/L 5-14 Serum or plasma urea nitrogen measurement (mass/volume ) 12 mg/dL 7-18 Serum or plasma creatinine measurement (mass/volume) 0.84 mg/dL 0.60-1.30 Serum or plasma urea nitrogen/creatinine mass ratio 14 NRG Serum or plasma creatinine measurement w ith calculation of estimated glomerular filtration rate > NRG Serum or plasma glucose measurement (mass/volume) 78 mg/dL 70-105 Serum or plasma calcium measurement (mass/volume) 8.9 mg/dL 8.5-10.1 Serum or plasma total bilirubin measurement (mass/volu me) 0.8 mg/dL 0.1-1.0 Serum or plasma alkaline phosphatase praveen surement (enzymatic activity/volume) 76 U/L 40-136 Serum or plasma aspartate aminotransfera se measurement (enzymatic activity/volume) 35 U/L 5-34 Serum or plasma alanine aminotransferase measurement (enzymatic activity/volume) 23 U/L 0-55 Serum or plasma protein measurement (mass/volume) 6.9 g/dL 6.4-8.2 Serum or plasma albumin measurement (mass/volume) 3.9 g/dL 3.2-4.5 CALCIUM CORRECTED 9.0 mg/dL 8.5-10.1 Complete blood count (CBC) with automate d white blood cell (WBC) differential - 04/06/20 17:40 Blood leukocytes automated count (number/volume) 5.5 10*3/uL 4.3-11.0 Blood erythrocytes automated count (number/volume) 4.63 10*6/uL 4.35-5.85 Venous blood hemoglobin measurement (mass/volume) 14.7 g/dL 13.3-17.7 Blood hematocrit (volume fraction) 43 % 40-54 Automated erythrocyte mean corpuscular volume 94 [ foz_us] 80-99 Automated erythrocyte mean corpuscular h emoglobin (mass per erythrocyte) 32 pg 25-34 Automated erythrocyte mean corpuscular h emoglobin concentration measurement (mass/volume) 34 g/dL 32-36 Automated erythrocyte distribution width ratio 15. 8 % 10.0- 14.5 Automated blood platelet count (count/volume) 98 1 0*3/uL 130-400 Automated blood platelet mean volume measurement 12.6 [foz_us] 7.4-10.4 Automated blood neutrophils/100 leukocytes 51 % 42-75 Automated blood lymphocytes/100 leukocytes 37 % 12-44 Blood monocytes/100 leukocytes 11 % 0-12 Automated blood eosinophils/100 leukocytes 1 % 0-10 Automated blood basophils/100 leukocytes 0 % 0-10 Blood neutrophils automated count (number/volume) 2.8 10*3 1.8-7.8 Blood lymphocytes automated count (number/volume) 2.0 10*3 1.0-4.0 Blood monocytes automated count (number/volume) 0. 6 10*3 0.0-1.0 Automated eosinophil count 0.1 10*3/uL 0 .0-0.3 Automated blood basophil count (count/volume) 0.0 10*3/uL 0.0-0.1 Serum or plasma troponin i.cardiac measu rement (mass/volume) - 04/06/20 17:40 Serum or plasma troponin i.cardiac measurement (mass/v olume) 0.032 ng/mL <0.028 Magnesium - 04/06/20 17:40 Magnesium 2.0 mg/dL 1.6-2.4 Myoglobin, serum - 04/06/20 17:40 Myoglobin, serum 72.0 ng/mL 10.0-92.0 Serum or plasma C reactive protein measu rement (mass/volume) - 04/06/20 17:40 Serum or plasma C reactive protein measurement (mass/v olume) 0.20 mg/dL 0.00-0.50 Serum or plasma lithium measurement (mol es/volume) - 04/06/20 17:40 BNP PT 274.2 pg/mL <100.0 Encounters ACCT No. Visit Date/Time Discharge Status Pt. Type Provider Facility Loc./Unit Complaint [id number] 08/23/2019 09:53:00 08/23/2019 23:59: 00 DIS Outpatient Johana Ferrell [id number] 08/06/2019 08:17:00 08/06/2019 23:59: 00 DIS Outpatient Jessi Matthews [id number] 07/19/2019 13:21:00 07/19/2019 23:59: 00 DIS Outpatient Jessi Matthews [id number] 03/12/2019 16:23:00 03/13/2019 09:30: 00 DIS Outpatient Jessi Matthews [facility] [id number] 04/05/2018 16:38:00 04/05/2018 23:59: 00 DIS Outpatient LA NENA LEGER [id number] 04/05/2018 16:06:00 04/05/2018 23:59: 00 DIS Outpatient LA NENA LEGER [id number] 10/27/2017 15:00:00 10/27/2017 16:10: 00 DIS Outpatient Foster Cantu [id number] 03/18/2017 10:25:00 03/18/2017 12:14: 00 DIS Outpatient Landen Lucas [facility] ER [id number] 03/20/2019 08:27:00 Document Registration [id number] 03/12/2019 15:00:00 Document Registration [id number] 09/13/2017 08:54:00 Document Registration [id number] 03/18/2017 11:05:55 Document Registration [id number] 12/18/2019 10:29:00 020 14:05:00 DIS Outpatient MALA DALTON MD [facility] ENDO SCREENING/HX POLYPS [id number] 12/11/2019 05:40:00 020 14:41:00 DIS Outpatient MALA DALTON MD [facility] PREOP COLONOSCOPY [id number] 03/12/2019 10:22:00 019 12:18:00 DIS Emergency DANIELITO CURTIS DO [facility] ER SOA [id number] 03/10/2019 13:12:00 019 16:18:00 DIS Inpatient AVEL ROMANO, MARISSA Mandujano [facility] 4TH AFIB WITH RVR, CHEST PAIN [id number] 01/11/2018 13:31:00 018 14:19:00 DIS Outpatient TOMAS VEGA DO [facility] CARD 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 [id number] 10/23/2017 16:48:00 017 21:10:00 DIS Emergency LOIS ROMANO, GLENNY Mccabe [facility] ER CONSTIPATION/RE CTAL PAIN [id number] 02/13/2015 11:28:00 015 13:00:00 DIS Emergency LANDEN LUCAS APRN [facility] ER LEFT HIP PAIN [id number] 01/04/2015 12:07:00 015 14:15:00 DIS Emergency JUAN GUERRIER DO [facility] ER BACK PAIN [id number] 01/02/2015 08:32:00 015 23:59:59 CLS Outpatient CAITLYN SANTILLAN [facility] LAB PAF [id number] 12/13/2014 13:12:00 015 16:08:00 DIS Emergency VIVIAN ROMANO, SADA Conteh [facility] ER BACK PAIN [id number] 10/08/2014 08:09:00 014 00:01:00 DIS Outpatient CAITLYN SANTILLAN [facility] LAB PAF [id number] 07/22/2014 15:21:00 014 18:06:00 DIS Emergency LANDEN LUCAS APRN [facility] ER R UPPER BACK PAIN [id number] 06/24/2014 08:29:00 014 00:01:00 DIS Outpatient CAITLYN SANTILLAN [facility] LAB PAF [id number] 07/16/2014 13:20:00 014 14:42:00 DIS Emergency LANDEN LUCAS APRN [facility] ER LEFT WRIST INJURY [id number] 05/20/2014 12:54:00 014 20:00:00 DIS Outpatient AGUILA ROMANO FACC, UZIEL SIERRA CC DS [facility] ERLIPIDEMIA CORONARY ARTERY DISEASE [id number] 02/24/2014 08:12:00 014 00:01:00 DIS Outpatient CAITLYN SANTILLAN [facility] LAB PAF [id number] 10/08/2013 08:19:00 014 00:01:00 DIS Outpatient CAITLYN SANTILLAN [facility] LAB PAF [id number] 08/05/2013 12:38:00 013 00:01:00 DIS Outpatient CHANTE PENNINGTON APRN [facility] RAD ATRIAL FIB,ABNO RMAL ABDOMENTAL CT [id number] 10/21/2013 08:29:00 013 23:59:59 CLS Outpatient CAITLYN SANTILLAN [facility] LAB HLP [id number] 08/02/2013 01:20:00 15:25:00 DIS Inpatient LA NENA TOMPKINS MD [facility] 4TH INTRACTABLE ABD BACK PAIN;TRANSIENT AFIB;HTN;EL [id number] 05/02/2013 08:20:00 23:59:59 CLS Outpatient CAITLYN SANTILLAN [facility] LAB HYPERLIPIDEMIA [id number] 04/10/2013 07:53:00 11:20:00 DIS Outpatient MALA DALTON MD [facility] SDC SCREENING [id number] 04/03/2013 07:27:00 23:59:59 CLS Outpatient MALA DALTON MD [facility] PREOP SCREENING [id number] 04/06/2020 17:37:[address] Emergency NICOLETTE LARSEN MD [facility] ER A-FIB [id number] 02/13/2015 11:42:00 Document Registration [id number] 11/04/2013 13:45:00 Document Registration [id number] 02/04/2013 08:04:00 Document Registration [id number] 01/24/2013 09:15:00 Document Registration [id number] 12/27/2012 10:17:00 Document Registration [id number] 11/27/2012 12:08:00 Document Registration [id number] 09/17/2012 08:27:00 Document Registration [id number] 06/26/2012 06:40:00 Document Registration
[2020-04-06] MEDS ORDERED: APIXABAN 5 MG (ELIQUIS) TABLET PO ONE (19:15)
[2020-04-06] MEDS ORDERED: dilTIAZem120 MG (CARDIZEM CD) CAP PO SCH (19:15)
--- NOTE | 2020-04-06 19:40 | NUR ---
Contacted , Aileen, regarding pt findings and admission. Aileen voices no questions or concerns.
--- OUTSIDE RECORDS SUMMARY | 2020-04-06 19:53 | XMS REPORT | Encounter Summary ---
Author Author [facility] Organization [facility] Address Unknown Phone Unavailable Care Team Providers Care Reproduction Machine Loader Name Role Phone PCP Unavailable Reason for Visit * Reason Comments Immunization/Injection influenza Encounter Details Care Team Description Date Type Department Nurse Mark Need for influenza vaccination (Primary Dx) 08/26/2013 Immunization [facility] Family Medicine [place] [address] [place] [address] Social History Date Tobacco Use [...]
--- OUTSIDE RECORDS SUMMARY | 2020-04-06 19:53 | XMS REPORT | Encounter Summary ---
Author Author [facility] Organization [facility] Address Unknown Phone Unavailable Care Team Providers Care Tie Worker Name Role Phone PCP Unavailable Reason for Visit * Reason Comments Follow Up Encounter Details Care Team Description Date Type Department Laura Nunez ARNP [address] [place] [address] Follow up (Primary Dx); Back pain; Irregular heart beat 12/15/2014 Office Visit [facility] Medicine [place] [address] [place] [address] Social History Date Tobacco Use [...] Comments Vital Sign 144/88 12/15/2014 10:22 AM MANAGER PLAN Blood Pressure 80 12/15/2014 10:22 AM MANAGER PLAN Pulse 36.9 C (98.5 F) 12/15/2014 10:22 AM MANAGER PLAN Temperature - - Respiratory Rate - - Oxygen Saturation - - Inhaled Oxygen Concentration 83.5 kg (184 lb) 12/15/2014 10:22 AM MANAGER PLAN Weight 190.5 cm (6' 3") 12/15/2014 10:22 AM MANAGER PLAN Height 23 12/15/2014 10:22 AM MANAGER PLAN Body Mass Index documented in this encounter Progress Notes * Laura Nunez ARNP - 12/15/2014 11:21 AM MANAGER PLAN HISTORY OF PRESENT ILLNESS Mitchel Prince, a 79 y.o. male. Subjective HPI Here today for f/u with back pain -onset chronic with an exacerbation last week -seen here last week - Pt told FILAMENT TESTER he had stopped his warfarin for a [...] r/t cardiac - he admits [facility] once [facility] 4. Deferring pain to pain specialist including rad GER PLAN documented in this encounter Plan of Treatment Not on filedocumented as of this encounter Results * PROTIME-INR (12/17/2014 8:36 AM MANAGER PLAN) PROTIME 10.2 9.6 - 11.0 Seconds [facility] - [place] INR 1.0 (L) 2.0 - 3.0 [facility] - [place] Specimen Blood Performing Organization Address City/State/Zipcode Ph one Number [facility] CLIA# [id number] [place] [address] - [place] [address] LABORATORY SERVICES CLIA# [id number] [place] [address] - [address] documented in this encounter Visit Diagnoses Diagnosis Follow up - Primary Back pain Backache, unspecified Irregular heart beat Cardiac dysrhythmia, unspecified documented in this encounter
--- OUTSIDE RECORDS SUMMARY | 2020-04-06 19:53 | XMS REPORT | Encounter Summary ---
Author Author [facility] Organization [facility] Address Unknown Phone Unavailable Care Team Providers Care Channel Program Manager Name Role Phone PCP Unavailable Reason for Visit * Reason Comments Immunization/Injection Encounter Details Care Team Description Date Type Department Laura Nunez, ELECTRICAL RESEARCH ENGINEER [address] [place] [address] Nurse Mark Need for influenza vaccination (Primary Dx) 09/08/2015 Immunization [facility] [address] [place] [address] Social History Date Tobacco Use [...]
--- OUTSIDE RECORDS SUMMARY | 2020-04-06 19:53 | XMS REPORT | Encounter Summary ---
Author Author [facility] Organization [facility] Address Unknown Phone Unavailable Care Team Providers Care Publisher Assistant Name Role Phone PCP Unavailable Reason for Visit * Reason Comments Immunization/Injection Encounter Details Care Team Description Date Type Department Nurse Mark Need for influenza vaccination (Primary Dx) 08/22/2014 Immunization [facility] Family Medicine [address] [place] [address] Social History Date Tobacco Use [...]
--- OUTSIDE RECORDS SUMMARY | 2020-04-06 19:53 | XMS REPORT | Encounter Summary ---
Author Author [facility] Organization [facility] Address Unknown Phone Unavailable Care Team Providers Care Product Tester Name Role Phone PCP Unavailable Reason for Visit * Reason Comments Immunization/Injection wants flu shot Encounter Details Care Team Description Date Type Department Nurse Mark Needs flu shot (Primary Dx) 09/09/[address] [facility] Family Medicine [address] [place] [address] Social History Date Tobacco Use [...]
--- OUTSIDE RECORDS SUMMARY | 2020-04-06 19:53 | XMS REPORT | Encounter Summary ---
Author Author [facility] Organization [facility] Address Unknown Phone Unavailable Care Team Providers Care Remote Control Mirror Installer Name Role Phone PCP Unavailable Reason for Visit * Reason Comments Nasal Congestion Sinus Pain Encounter Details Care Team Description Date Type Department Laura Nunez, CRISTOFER [address] [place] [address] Runny nose; Acute URI; Hyperlipidemia; CAD (coronary artery disease) 11/21/2012 Office Visit [facility] Family Medicine [place] [address] [place] [address] Social History Date Tobacco Use [...] Comments Vital Sign 132/74 11/21/2012 1:23 PM MARINE ENGINEERING TEACHER Blood Pressure 84 11/21/2012 1:23 PM MARINE ENGINEERING TEACHER Pulse 36.2 C (97.1 F) 11/21/2012 1:23 PM MARINE ENGINEERING TEACHER Temperature 20 11/21/2012 1:23 PM MARINE ENGINEERING TEACHER Respiratory Rate - - Oxygen Saturation - - Inhaled Oxygen Concentration 94.3 kg (208 lb) 11/21/2012 1:23 PM MARINE ENGINEERING TEACHER Weight 188 cm (6' 2") 11/21/2012 1:23 PM MARINE ENGINEERING TEACHER Height 26.71 11/21/2012 1:23 PM MARINE ENGINEERING TEACHER Body Mass Index documented in this encounter Patient Instructions * Patient Instructions* Laura Nunez, BIOMEDICAL ENGINEERING TECHNICIAN - 11/21/2012 1:29 PM MARINE ENGINEERING TEACHER Czech | Polish Mely Patient Instructions Upper Respiratory Infection (Cold): [...] drinking lots of fluid s and taking oohv-rgn-ohstyxs pain medicine. You will probably feel better [...] amount of fluids you drink. Take an zain-vbz-tgqkdyi pain medicine, such as acetaminophen (Tylenol), ibup [...] certain health problems. Be careful when taking haef-dgm-kqdzroi cold or flu medicines and Tylenol at the same time. Many of these medicines have acetaminophen, which is Tylenol. [place] d the labels to make sure that [...] Where can you learn more? Go to www.[employer] in the Health Information search box Enter K520 in the search box to learn more about "Upper Respiratory Infection (C old): After Your Visit." [id number] [employer]. Care instructions adapted under license andrea Larson. [employer] disclaims any warranty or liability for your use of this informat ion. This information is not intended to represent the ethical and anabaptism bel iefs of [employer]. This care instruction is for use with your licensed healthcare [facility]. If you have questions about a medical condition or this instruction, always ask your healthcare professional. [employer] disclaims any warranty or liability for your use of this information. Content Version: 9.4.70284; Last Revised: March 12, 2012 NE ENGINEERING TEACHER documented in this encounter Progress Notes * Laura Nunez ARNP - 11/21/2012 1:32 PM MARINE ENGINEERING TEACHER HISTORY OF PRESENT ILLNESS Mitchel Prince, a [...] 3. RTC if symptoms do not improve NE ENGINEERING TEACHER documented in this encounter Plan of Treatment Not on filedocumented as of this encounter Visit Diagnoses Diagnosis Runny nose Other diseases of nasal cavity and sinu ses Acute URI Acute upper respiratory infections of u nspecified site Hyperlipidemia Other and unspecified hyperlipidemia CAD (coronary artery disease) Coronary atherosclerosis of unspecified type of vessel, [place] or graft documented in this encounter
--- OUTSIDE RECORDS SUMMARY | 2020-04-06 19:53 | XMS REPORT | Encounter Summary ---
Author Author [facility] Organization [facility] Address Unknown Phone Unavailable Care Team Providers Care Lens Molder Name Role Phone PCP Unavailable Encounter Details Care Team Description Date Type Department Irregular heart beat 12/17/2014 Orders Only [place] [place] [address] Social History Date Tobacco Use [...] Routine 12/17/2014 Irregular heart beat 8:36 AM OIL HOUSE ATTENDANT documented in this encounter Results * PROTIME-INR (12/17/2014 8:36 AM OIL HOUSE ATTENDANT) PROTIME 10.2 9.6 - 11.0 Seconds [facility] [employer] [facility] [place] INR 1.0 (L) 2.0 - 3.0 [facility] [employer] [facility] [place] Specimen Blood Performing Organization Address City/State/Zipcond Ph one Number [facility] LABOR[facility] SERVICES CLIA# [id number] [place], [place] [address] - [address] LABORATORY SERVICES CLIA# [id number] [place] [address] - [place] [address] documented in this encounter Visit Diagnoses Diagnosis Irregular heart beat Cardiac dysrhythmia, unspecified documented in this encounter
--- OUTSIDE RECORDS SUMMARY | 2020-04-06 19:53 | XMS REPORT | Encounter Summary ---
Author Author [facility] Organization [facility] Address Unknown Phone Unavailable Care Team Providers Care Door Core Assembler Name Role Phone PCP Unavailable Reason for Referral * Consult, Test & Treat (Routine) Referred By Contact Referred To Contact Status Reason Specialty Diagnoses / Procedures Laura Nunez ARNP [address] [place] [address] Closed Pain Management Diagnoses Back pain Encounter Details Care Team Description Date Type Department Laura Nunez ARNP [address] [place] [address] Back pain (Primary Dx) 12/19/2014 Orders Only [facility] Family Medicine [place] [address] [place] [address] Social History Date Tobacco Use [...]
--- OUTSIDE RECORDS SUMMARY | 2020-04-06 19:53 | XMS REPORT | Encounter Summary ---
Author Author [facility] Organization [facility] Address Unknown Phone Unavailable Care Team Providers Care Service Coordinator Name Role Phone PCP Unavailable Encounter Details Care Team Description Date Type Department Mitchel Chen MD [address] [place] [address] [facility], Outpt Lab 02/26/2015 [facility] Outpatient Encounter Laboratory [address] [address] Social History Date Tobacco Use [...] COMPREHENSIVE METABOLIC PANEL (02/26/2015 1:05 PM CDT) [facility] Signature SODIUM 138 134 - 145 mmol/L [facility]ORY SERVICES - [facility] [place] POTASSIUM 3.5 3.5 - 5.1 mmol/L [facility] [place] CHLORIDE 105 98 - 107 mmol/L [facility] [place] CO2 26 22 - 31 mmol/L [facility] [place] CALCIUM 9.0 8.5 - 10.1 mg/dL [facility] [place] BUN 12 7 - 20 mg/dL [facility] [place] CREATININE 0.77 0.67 - 1.17 mg/dL [facility] Comment: LABORATORY The GFR result is not SERVICES - [facility] clinically significant on [place] patients <18 or >70 years of age. GLUCOSE 100 70 - 100 mg/dL [facility] [place] TOTAL PROTEIN 6.4 6.4 - 8.2 g/dL [facility] - [facility] [place] ALBUMIN 3.0 (L) 3.4 - 5.0 g/dL [facility] - [place] BILIRUBIN TOTAL 0.6 <=1.1 mg/dL [facility] [place] ALKALINE 90 40 - 136 U/L [facility] PHOSPHATASE LABORATORY SERVICES - [place] AST 21 10 - 40 U/L [facility] [place] ALT 34 14 - 63 U/L [facility] [place] GFR >60 mL/min/1.73 sq meter [facility] Comment: LABORATORY eGFR has not been validated SERVICES - [facility] for use in the elderly (> [...] GFR result. GFR, >60 mL/min/1.73 sq meter [facility] SERVICES - [facility] [place] ANION GAP 7 4 - 20 mmol/L [facility] - [place] Specimen Blood Performing Organization Address City/State/[facility] Ph one Number [facility] CLIA# [id number] [place], [place] [address] - [place] [address] [facility] documented in this encounter Visit Diagnoses Diagnosis Back pain - Primary Backache, unspecified documented in this encounter
--- OUTSIDE RECORDS SUMMARY | 2020-04-06 19:53 | XMS REPORT | Clinical Summary ---
Author Author [facility] Organization [facility] Address Unknown Phone Unavailable Care Team Providers Care Gear And Spline Grinder Name Role Phone PCP Unavailable Allergies No [...] Comments Vital Sign 144/88 12/15/2014 10:22 AM LABORATORY APPARATUS GLASS GRINDER Blood Pressure 80 12/15/2014 10:22 AM LABORATORY APPARATUS GLASS GRINDER Pulse 36.9 C (98.5 F) 12/15/2014 10:22 AM LABORATORY APPARATUS GLASS GRINDER Temperature 20 11/21/2012 1:23 PM LABORATORY APPARATUS GLASS GRINDER Respiratory Rate - - Oxygen Saturation - - Inhaled Oxygen Concentration 83.5 kg (184 lb) 12/15/2014 10:22 AM LABORATORY APPARATUS GLASS GRINDER Weight 190.5 cm (6' 3") 12/15/2014 10:22 AM LABORATORY APPARATUS GLASS GRINDER Height 23 12/15/2014 10:22 AM LABORATORY APPARATUS GLASS GRINDER Body Mass Index Plan of Treatment Health Maintenance Due Date Last Done Comments ZOSTER VACCINE (1 of 2) 1986 PNEUMOCOCCAL VACCINE 65+ 2001 YEARS (1 of 2 - PCV13) INFLUENZA VACCINE 06/20/2019 09/08/2015, 014, 08/26/2013, Additional history exists Results Not on filefrom Last 3 Months Insurance Type Payer Benefit Subscriber ID Effective Phone Address Plan / Dates Group Medicare MEDICARE MEDICARE [id number] 2001-P [employer] [facility] [id number] 2010 HEALTHCARE -Present Mitchel Prince Personal/F Self 1935 [address] [place] (Home) [facility] [place] [address] NikiMitchel M Personal/F Self 1935 [address] [place] (Home) [facility] [place] [address] Mitchel Prince Personal/F Self 1935 [address] amily (Home) [place] [address] Mitchel Prince Personal/F Self 1935 [address] amily (Home) [place] [address] Advance Directives For more information, please contact: [phone] Patient Manufacturing Test Technician Explanation Type Date Recorded Advance Directive POA Advance Directive Living Will
--- OUTSIDE RECORDS SUMMARY | 2020-04-06 19:53 | XMS REPORT | Clinical Summary ---
Author Author [facility] Organization [facility] Address Unknown Phone Unavailable Care Team Providers Care Executive Chairman Name Role Phone PCP Unavailable Allergies Not [...]
--- OUTSIDE RECORDS SUMMARY | 2020-04-06 19:53 | XMS REPORT | Encounter Summary ---
Author Author [facility] Organization [facility] Address Unknown Phone Unavailable Care Team Providers Care Software Systems Architect Name Role Phone PCP Unavailable Reason for Visit * Reason Comments LOW BACK PAIN low to mid back pain Other is on warfarin; stopped johanna ing warfarin 7 days ago Other constipation has been takin g otc stool softner Encounter Details Care Team Description Date Type Department Rupali Angel, PASTEURIZING MACHINE OPERATOR [address] [place] [address] Back pain (Primary Dx); Warfarin anticoagulation 12/11/2014 Office Visit [facility] Family Medicine [place] [address] [place] [address] Social History Date Tobacco Use [...] Comments Vital Sign 140/85 12/11/2014 1:26 PM OUTSIDE BARREL LATHE OPERATOR Blood Pressure - - Pulse 36.8 C (98.3 F) 12/11/2014 1:26 PM OUTSIDE BARREL LATHE OPERATOR Temperature - - Respiratory Rate - - Oxygen Saturation - - Inhaled Oxygen Concentration 84.8 kg (187 lb) 12/11/2014 1:26 PM OUTSIDE BARREL LATHE OPERATOR Weight 189.2 cm (6' 2.5") 12/11/2014 1:26 PM OUTSIDE BARREL LATHE OPERATOR Height 23.69 12/11/2014 1:26 PM OUTSIDE BARREL LATHE OPERATOR Body Mass Index documented in this encounter Progress Notes * Rupali Angel, PASTEURIZING MACHINE OPERATOR - 12/11/2014 2:05 PM OUTSIDE BARREL LATHE OPERATOR HISTORY OF PRESENT ILLNESS Mitchel Prince, a [...] be poor historian, appears to go to [place] clinic for chronic con ditions and has artificial pearl maker through [facility]. sleeps in a recliner [...] will need PT/INR rechecked at that time. IDE BARREL LATHE OPERATOR documented in this encounter Plan of Treatment Not on filedocumented as of this encounter Procedures Comments Procedure Name Priority Date/Time Associated Diag nosis PROTIME-INR Routine 12/11/2014 Warfarin antico agulation 2:05 PM OUTSIDE BARREL LATHE OPERATOR documented in this encounter Results * XR THORACIC SPINE 3 VW (12/11/2014 4:42 PM OUTSIDE BARREL LATHE OPERATOR) Specimen Impressions Performed At IMPRESSION: INTERFACE SYSTEM [...] consistent with ost eopenia/osteoporosis. Procedure Note Interface, [facility] [place] [facility] Incoming Radiology Results - 12/11/2014 3:48 PM OUTSIDE BARREL LATHE OPERATOR RADIOLOGIC EXAM: Three views of the thoracic [...] On: 12/11/2014 3:44 PM Performing Organization Address [facility] Ph one Number INTERFACE SYSTEM INTERFACE SYSTEM Refer to clinic/hospital department * PROTIME-INR (12/11/2014 2:05 PM OUTSIDE BARREL LATHE OPERATOR) PROTIME 10.6 9.6 - 11.0 Seconds [facility] - [place] INR 1.0 (L) 2.0 - 3.0 [facility] [employer] Property [facility] [place] Specimen Blood Performing Organization Address City/[facility]/Zipcode Ph one Number [facility] SERVICES CLIA# [id number] [place] [address] - [place] [address] [place] [address] LABORATORY SERVICES CLIA# [id number] [place] [address] - [place] [address] [facility] documented in this encounter Visit Diagnoses Diagnosis Back pain - Primary Backache, unspecified Warfarin anticoagulation Encounter for long-term (current) use o f anticoagulants documented in this encounter
--- OUTSIDE RECORDS SUMMARY | 2020-04-06 19:53 | XMS REPORT | Encounter Summary ---
Author Author [facility] Organization [facility] Address Unknown Phone Unavailable Care Team Providers Care Satellite Installation Technician Name Role Phone PCP Unavailable Encounter Details Care Team Description Date Type Department [place] Rupali Luu, ALTERNATIVE FINANCING SPECIALIST [address] [place] [address] 12/11/2014 [facility] [place] [facility] [place] Encounter [place] [address] [place] [address] Social History Date Tobacco Use [...] Routine 12/11/2014 Back pa in 4:42 PM PRESS BREAKER documented in this encounter Results * XR THORACIC SPINE 3 VW (12/11/2014 4:42 PM PRESS BREAKER) Specimen Impressions Performed At IMPRESSION: INTERFACE SYSTEM [...] consistent with ost eopenia/osteoporosis. Procedure Note Interface, [facility] [place] [facility] Incoming Radiology Results - 12/11/2014 3:48 PM PRESS BREAKER RADIOLOGIC EXAM: Three views of the thoracic [...]
--- OUTSIDE RECORDS SUMMARY | 2020-04-06 19:53 | XMS REPORT | Encounter Summary ---
Author Author [facility] Amrita Chavis [facility] Organization [facility] Address Unknown Phone Unavailable Care Team Providers Care Window Trimmer Apprentice Name Role Phone PCP Unavailable Encounter Details Care Team Description Date Type Department Conner Contreras MD [address] [place] [address] [address] DAM[place] Mckeon [phone] SUBENDO FIRST EPISODE CARE (Primary Dx) 10/12/2002 Inpatient [facility] Historical MEDICAL CARDIAC [address] [facility] DAMI Mckeon [address] Social History Date Tobacco [...]
--- OUTSIDE RECORDS SUMMARY | 2020-04-06 19:53 | XMS REPORT | Encounter Summary ---
Author Author [facility] Organization [facility] Address Unknown Phone Unavailable Care Team Providers Care Electronics Processor Name Role Phone PCP Unavailable Reason for Referral * Outpatient Services (Routine) Referred By Contact Referred To Contact Status Reason Specialty Diagnoses / Procedures Mitchel Chen MD [address] [place] [phone] [facility] Imaging Services [address] [place] [phone] Closed Radiology Diagnoses Lumbar radiculopathy P rocedures MRI LUMBAR W WO CONTRAST Reason for Visit * Outpatient Services (Routine) Referred By Contact Referred To Contact Status Reason Specialty Diagnoses / Procedures Mitchel Chen MD [address] [place] [phone] [facility] Imaging Services [address] [place] [phone] Closed Radiology Diagnoses Lumbar radiculopathy P rocedures MRI LUMBAR W WO CONTRAST Encounter Details Care Team Description Date Type Department Mitchel Chen MD [address] [place] [address] [phone] Canceled (Patient Requested) 02/26/2015 [facility] F ort Encounter Toni MRI [address] [place] [phone] Social History Date Tobacco Use Types Packs/Day [...]
--- OUTSIDE RECORDS SUMMARY | 2020-04-06 19:54 | XMS REPORT | Encounter Summary ---
Author Author [facility] Organization [facility] Address Unknown Phone Unavailable Care Team Providers Care Property Disposal Officer Name Role Phone PCP Unavailable Encounter Details Care Team Description Date Type Department Lynn Carrion, TRAVELING ENGINEER [address] [place] [address] Abdominal pain, left lower quadrant (Lu larkin Dx) 10/12/1999 Outpatient [facility] Laboratory Services [address] [address] Social History Date Tobacco Use [...]
--- OUTSIDE RECORDS SUMMARY | 2020-04-06 19:54 | XMS REPORT | Encounter Summary ---
Author Author [facility] Organization [facility] Address Unknown Phone Unavailable Care Team Providers Care Airset Molder Name Role Phone PCP Unavailable Encounter Details Care Team Description Date Type Department Leisure, Cm Conley APRN NO ADDRESS ON FILE 02/20/2003 Outpatient [facility] [place] Historical Social History Date Tobacco Use Types [...]
--- OUTSIDE RECORDS SUMMARY | 2020-04-06 19:54 | XMS REPORT | Encounter Summary ---
Author Author [facility] Organization [facility] Address Unknown Phone Unavailable Care Team Providers Care Manager Field Investigations Name Role Phone PCP Unavailable Encounter Details Care Team Description Date Type Department Self, Braulio Busch MD [address] [place] [phone] Special Screening for Malignant Neoplasm of Prostate (Primary Dx) 10/03/2006 Outpatient [facility] Medicine [place] [address] [place] [address] Social History Date Tobacco Use [...]
--- OUTSIDE RECORDS SUMMARY | 2020-04-06 19:54 | XMS REPORT | Encounter Summary ---
Author Author [facility] Organization [facility] Address Unknown Phone Unavailable Care Team Providers Care Vessel Specialist Name Role Phone PCP Unavailable Reason for Visit * Reason Comments Immunization/Injection flu shot Encounter Details Care Team Description Date Type Department Nurse Mark Need for influenza vaccine (Primary Dx) 09/01/2010 Immunization [facility] Family Medicine [place] [address] [place] [address] Social History Date Tobacco Use [...]
--- OUTSIDE RECORDS SUMMARY | 2020-04-06 19:54 | XMS REPORT | Encounter Summary ---
Author Author [facility] Organization [facility] Address Unknown Phone Unavailable Care Team Providers Care Wallpaper Printer Helper Name Role Phone PCP Unavailable Encounter Details Care Team Description Date Type Department Lynn Carrion, TRANSMISSION SUPERVISOR [address] [place] [address] 10/12/1999 Outpatient [facility] Medicine [address] [phone] Social History Date Tobacco Use [...]
--- OUTSIDE RECORDS SUMMARY | 2020-04-06 19:54 | XMS REPORT | Encounter Summary ---
Author Author [facility] Organization [facility] Address Unknown Phone Unavailable Care Team Providers Care Clerical Support Specialist Name Role Phone PCP Unavailable Encounter Details Care Team Description Date Type Department Israel Yi [phone] Abdominal pain, unspecified site (Primar y Dx) 10/18/1999 Outpatient [facility] Consol idated Historical [address] [address] Social History Date Tobacco Use Types Packs/Day [...]
--- OUTSIDE RECORDS SUMMARY | 2020-04-06 19:56 | XMS REPORT | Continuity of Care Document ---
[...] statin med Unknown N/A 07/22/2014 Yes codeine [id number] Drug Allergy Mild Altered taste 02/13/2015 Yes Xzkqxix-Fdc-Fck Reductase Inhibitor [id number] Drug Allergy Unknown N/A 03/12/2019 Medications Medication [...] MD Ot 414.0 1 CORONARY ATHEROSCLEROSIS OF [place] CORON 08/02/2013 LA NENA TOMPKINS MD Ot [...] NOSP (ABN) FINDINGS ON RADIOLOGICAL OT 12/18/2013 YOSICAITLYN ACOSTA NURSE WOUND CARE Ot 427.31 ATRIAL FIBRILLATION 03/31/2014 YOSICAITLYN ACOSTA NURSE WOUND CARE Ot 427.31 ATRIAL FIBRILLATION 05/20/2014 AGUILA ROMANO FACC, ALI FACP CCDS Ot 272.4 HYPERLIPIDEMIA NEC/NOS 05/20/2014 AGUILA ROMANO FACC, ALI FACP CCDS Ot 414.01 CORONARY ATHEROSCLEROSIS OF [place] CORON 05/20/2014 AGUILA ROMANO FACC, ALI FACP [...] FROM SUDDEN STRENUOUS MOVEM 07/21/2014 CAITLYN SANTILLAN NURSE WOUND CARE Ot 427.31 ATRIAL FIBRILLATION 07/22/2014 LANDEN LUCAS APRN Ot 412 OLD MYOCARDIAL INFARCT 07/22/2014 LANDEN LUCAS APRN Ot 724 .2 LUMBAGO 07/22/2014 LANDEN LUCAS APRN Ot 789.09 ABDOMINAL PAIN, OTHER SPECIFIED SITE 07/22/2014 LANDEN LUCAS APRN Ot V58.61 ANTICOAGULANTS,LT,CURRENT USE 07/22/2014 LANDEN LUCAS APRN Ot V58.69 OTH MED,LT,CURRENT USE 10/13/2014 BAICAITLYN ACOSTA NURSE WOUND CARE Ot 427.31 10/22/2014 BAIMACAITLYN L NURSE WOUND CARE Ot 427.31 ATRIAL FIBRILLATION 11/04/2014 BAIMA, CAITLYN L NURSE WOUND CARE Ot 427.31 11/04/2014 BAIMA, CAITLYN L NURSE WOUND CARE Ot 427.31 11/05/2014 BAIMA, CAITLYN L NURSE WOUND CARE Ot 427.31 11/08/2014 BAIMA, CAITLYN L NURSE WOUND CARE Ot 427.31 11/08/2014 BAIMA, CAITLYN L NURSE WOUND CARE Ot 427.31 12/13/2014 SADA PARK MD Ot 564.00 UNSPEC CONSTIPATION 12/13/2014 SADA PARK MD Ot 724 .2 LUMBAGO 12/13/2014 SADA PARK MD Ot V58.61 ANTICOAGULANTS,LT,CURRENT USE 12/18/2014 CAITLYN SANTILLAN NURSE WOUND CARE Ot 427.31 01/04/2015 JUAN GUERRIER DO Ot 724.2 LUMBAGO 01/04/2015 JUAN GUERRIER DO Ot 805.4 FX LUMBAR VERTEBRA-CLOSE 01/04/2015 JUAN GUERRIER DO Ot E000.8 OTHER EXTERNAL CAUSE STATUS 01/04/2015 JUAN GUERRIER DO Ot E927.0 OVEREXERTION FROM SUDDEN STRENUOUS MOVEM 02/02/2015 YOSICAITLYN ACOSTA NURSE WOUND CARE Ot 427.31 ATRIAL FIBRILLATION 02/13/2015 Ot 427.31 02/13/2015 Ot 553.1 02/13/2015 Ot 793.4 02/13/2015 Ot 427.31 02/13/2015 LANDEN LUCAS RETAIL LOSS PREVENTION SPECIALIST Ot 719.45 JOINT PAIN-PELVIS 02/13/2015 LANDEN LUCAS RETAIL LOSS PREVENTION SPECIALIST Ot 724 .2 LUMBAGO 03/18/2017 Landen Lucas [...] W I25.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 PECTORIS 09/13/2017 W [...] LOW 10/23/2017 GLENNY ABREU MD Ot Z79.01 MASTER DYER (CURRENT) USE OF ANTICOAGULANT 10/23/2017 GLENNY ABREU MD Ot Z79.82 LONGTERM (CURRENT) USE OF ASPIRIN 10/23/2017 GLENNY ABREU [...] 10/23/2017 Ot 414.01 COR ONARY ATHEROSCLEROSIS OF [place] CORON 10/23/2017 Ot 272.4 HYPE RLIPIDEMIA NEC/NOS 10/23/2017 Ot V58.69 OTH MED,LT,CURRENT USE 10/23/2017 SHA ROMANO, MALA Ot V72.84 EXAM PRE-OPERATIVE NOS 10/23/2017 CAITLYN SANTILLAN NURSE WOUND CARE Ot 272.4 HYPERLIPIDEMIA NEC/NOS 10/23/2017 BAIMA, CAITLYN L NURSE WOUND CARE Ot 272.4 HYPERLIPIDEMIA NEC/NOS 10/23/2017 Ot 427.31 [...] 01/09/2018 Ot 414.01 COR ONARY ATHEROSCLEROSIS OF [place] CORON 01/09/2018 Ot 272.4 HYPE RLIPIDEMIA NEC/NOS 01/09/2018 Ot V58.69 OTH MED,LT,CURRENT USE 01/09/2018 SHA ROMANO, MALA Ot V72.84 EXAM PRE-OPERATIVE NOS 01/09/2018 CAITLYN SANTILLAN NURSE WOUND CARE Ot 272.4 HYPERLIPIDEMIA NEC/NOS 01/09/2018 CAITLYN SANTILLAN NURSE WOUND CARE Ot 272.4 HYPERLIPIDEMIA NEC/NOS 01/09/2018 Ot 427.31 [...] 01/09/2018 Ot 414.01 COR ONARY ATHEROSCLEROSIS OF [place] CORON 01/09/2018 Ot 272.4 HYPE RLIPIDEMIA NEC/NOS 01/09/2018 Ot V58.69 OTH MED,LT,CURRENT USE 01/09/2018 SHA ROMANO, MALA Ot V72.84 EXAM PRE-OPERATIVE NOS 01/09/2018 BAIMA, CAITLYN L NURSE WOUND CARE Ot 272.4 HYPERLIPIDEMIA NEC/NOS 01/09/2018 BAIMA, CAITLYN L NURSE WOUND CARE Ot 272.4 HYPERLIPIDEMIA NEC/NOS 01/09/2018 Ot 427.31 ATR IAL FIBRILLATION 01/09/2018 Ot 553.1 UMBI LICAL HERNIA 01/09/2018 Ot 793.4 NOSP (ABN) FINDINGS ON RADIOLOGICAL OT 01/09/2018 Ot 427.31 ATR IAL FIBRILLATION 01/11/2018 HEARNDON DO, TOMAS L Ot M54.14 RADICULOPATHY, THORACIC REGION 01/12/2018 HEARNDON DO, TOMAS L Ot M54.14 RADICULOPATHY, THORACIC REGION 03/11/2019 BAIMA, CAITLYN L NURSE WOUND CARE Ot 272.4 HYPERLIPIDEMIA NEC/NOS 03/11/2019 Ot 427.31 [...] MD Ot I25.10 ATHSCL HEART DISEASE OF [place] CORONARY 03/11/2019 MARISSA VALLECILLO MD Ot I25.2 [...] GIDDINESS 03/11/2019 MARISSA VALLECILLO MD, Ot Z79.01 MASTER DYER (CURRENT) USE OF ANTICOAGULANT 03/11/2019 MARISSA VALLECILLO [...] BREATH 03/12/2019 DANIELITO CURTIS DO Ot Z79.01 MASTER DYER (CURRENT) USE OF ANTICOAGULANT 03/12/2019 DANIELITO CURTIS DO Ot Z79.82 LONGTERM (CURRENT) USE OF ASPIRIN 03/12/2019 DANIELITO CURTIS DO, Ot Z86.718 PERSONAL HISTORY OF OTHER VENOUS THROMBO 03/12/2019 EVER DANIELITO PRITCHARD Ot Z87.448 PERSONAL HISTORY OF OTHER DISEASES OF UR 03/12/2019 DANIELITO CURTIS DO Ot Z88.5 ALLERGY STATUS TO NARCOTIC AGENT STATUS 03/12/2019 EVER DANIELITO PRITCHARD Ot Z88.8 ALLERGY STATUS TO OTH DRUG/MEDS/BIOL SUB 03/12/2019 EVER DNAIELITO PRITCHARD Ot Z95.5 PRESENCE OF CORONARY ANGIOPLASTY [...] SHAHRIAR RTNESS OF BREATH 03/12/2019 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..] MD Ot I25.10 ATHSCL HEART DISEASE OF [place] CORONARY 03/13/2019 MARISSA VALLECILLO MD Ot I25.2 [...] GIDDINESS 03/13/2019 MARISSA VALLECILLO MD Ot Z79.01 LONGTERM (CURRENT) USE OF ANTICOAGULANT 03/13/2019 MARISSA VALLECILLO [...] MD Ot I25.10 ATHSCL HEART DISEASE OF [place] CORONARY 03/13/2019 MARISSA VALLECILLO MD Ot I25.2 [...] GIDDINESS 03/13/2019 MARISSA VALLECILLO MD Ot Z79.01 LONGTERM (CURRENT) USE OF ANTICOAGULANT 03/13/2019 MARISSA VALLECILLO [...] MD Ot I25.10 ATHSCL HEART DISEASE OF [place] CORONARY 03/13/2019 MARISSA VALLECILLO MD Ot I25.2 [...] GIDDINESS 03/13/2019 MARISSA VALLECILLO MD Ot Z79.01 LONGTERM (CURRENT) USE OF ANTICOAGULANT 03/13/2019 MARISSA VALLECILLO [...] MD, Ot I25.10 ATHSCL HEART DISEASE OF [place] CORONARY 03/13/2019 MARISSA VALLECILLO MD Ot I25.2 [...] GIDDINESS 03/13/2019 MARISSA VALLECILLO MD, Ot Z79.01 MASTER DYER (CURRENT) USE OF ANTICOAGULANT 03/13/2019 MARISSA VALLECILLO [...] BREATH 03/14/2019 DANIELITO CURTIS DO, Ot Z79.01 MASTER DYER (CURRENT) USE OF ANTICOAGULANT 03/14/2019 DANIELITO CURTIS DO Ot Z79.82 LONGTERM (CURRENT) USE OF ASPIRIN 03/14/2019 DANIELITO CURTIS DO, Ot Z86.718 PERSONAL HISTORY OF OTHER VENOUS THROMBO 03/14/2019 DANIELITO CURTIS DO, Ot Z87.448 PERSONAL HISTORY OF OTHER DISEASES OF UR 03/14/2019 DANIELITO CURTIS DO, Ot Z88.5 ALLERGY STATUS TO NARCOTIC AGENT STATUS 03/14/2019 DANIELITO UCRTIS DO, Ot Z88.8 ALLERGY STATUS TO OT [...] BREATH 03/19/2019 DANIELITO CURTIS DO, Ot Z79.01 LONGTERM (CURRENT) USE OF ANTICOAGULANT 03/19/2019 DANIELITO CURTIS DO, Ot Z79.82 LONGTERM (CURRENT) USE OF ASPIRIN 03/19/2019 DANIELITO CURTIS [...] 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 03/20/2019 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 03/20/2019 W L30.9 DERM [...] W K22.5 DIVERTICULUM OF ESOPHAGUS, ACQUIRED 07/19/2019 Amtthews, Jailene-Naomy W R13.10 DYSPHAGIA, UNSPECIFIED 07/19/2019 Matthews, [...] Matthews, Jailene-Naomy W 787.20 DYSPHAGIA, UNSPECIFIED 07/19/2019 Mathtews, Jailene-Naomy W K22.5 DIVERTICULUM OF ESOPHAGUS, ACQUIRED [...] MD, Ot I25.10 ATHSCL HEART DISEASE OF [place] CORONARY 12/18/2019 MALA DALTON MD, Ot I25.2 [...] LOSS 12/18/2019 MALA DALTON MD, Ot Z79.01 MASTER DYER (CURRENT) USE OF ANTICOAGULANT 12/18/2019 MALA DALTON MD, Ot Z79.82 LONGTERM (CURRENT) USE OF ASPIRIN 12/18/2019 MALA DALTON MD, Ot Z79.89 9 OTHER LONGTERM (CURRENT) DRUG THERAPY 12/18/2019 MALA DALTON MD, [...] MD, Ot I25.10 ATHSCL HEART DISEASE OF [place] CORONARY 12/23/2019 MALA DALTON MD, Ot I25.2 [...] LOSS 12/23/2019 MALA DALTON MD, Ot Z79.01 LONGTERM (CURRENT) USE OF ANTICOAGULANT 12/23/2019 MALA DALTON MD, Ot Z79.82 LONGTERM (CURRENT) USE OF ASPIRIN 12/23/2019 MALA DALTON MD, Ot Z79.89 9 OTHER LONGTERM (CURRENT) DRUG THERAPY 12/23/2019 MALA DALTON MD, [...] Code Description Performed By Per formed On [id number] RE STORATION OF CARDIAC RHYTHM, SINGLE 03/11/2019 [...] Fluid RBC 438 Cells/uL Synovial Fluid WBC 24253 Cells/uL 0-200 Other Culture - 03/18/17 10:55 [...] Negative Urine-Blood Negative Negative Urine-Color Yellow Colorless-Lt. [place] ow Urine-Epithelial Cells 0-5/HPF Urine-Glucose Negative Negative Urine-Ketones Trace Negative Urine-Leukocytes Negative Negative Urine-Nitrite Positive Negative Urine-pH 6.5 5-8.5 Urine-Protein Negative Negative Urine-Specific [place] 1.020 1.000-1 .030 Urine-WBC 0-2/HPF Urobilinogen 0.2 [...] Negative Urine-Blood Negative Negative Urine-Color Yellow Colorless-Lt. [place] ow Urine-Epithelial Cells 0-5/HPF Urine-Glucose Negative Negative Urine-Ketones Trace Negative Urine-Leukocytes Negative Negative Urine-Nitrite Negative Negative Urine-Other Urine Saved if Culture Need ed (48hrs from time of collection) Urine-pH 5.0 5-8.5 Urine-Protein Negative Negative Urine-RBC Negative Urine-Specific [place] 1.020 1.000-1 .030 Urine-WBC Negative Urobilinogen 0.2 [...] Status Pt. Type Provider Facility Loc./Unit Complaint [id number] 08/23/2019 09:53:00 08/23/2019 23:59: 00 DIS Outpatient Johana Ferrell [id number] 08/06/2019 08:17:00 08/06/2019 23:59: 00 DIS Outpatient Jessi Matthews [id number] 07/19/2019 13:21:00 07/19/2019 23:59: 00 DIS Outpatient Jessi Matthews [id number] 03/12/2019 16:23:00 03/13/2019 09:30: 00 DIS Outpatient Jessi Matthews [facility] [id number] 04/05/2018 16:38:00 04/05/2018 23:59: 00 DIS Outpatient LA NENA LEGER [id number] 04/05/2018 16:06:00 04/05/2018 23:59: 00 DIS Outpatient LA NENA LEGER [id number] 10/27/2017 15:00:00 10/27/2017 16:10: 00 DIS Outpatient Foster Cantu [id number] 03/18/2017 10:25:00 03/18/2017 12:14: 00 DIS Outpatient Landen Lucas [facility] ER [id number] 03/20/2019 08:27:00 Document Registration [id number] 03/12/2019 15:00:00 Document Registration [id number] 09/13/2017 08:54:00 Document Registration [id number] 03/18/2017 11:05:55 Document Registration [id number] 12/18/2019 10:29:00 020 14:05:00 DIS Outpatient MALA DALTON MD [facility] ENDO SCREENING/HX POLYPS [id number] 12/11/2019 05:40:00 020 14:41:00 DIS Outpatient MALA DALTON MD [facility] PREOP COLONOSCOPY [id number] 03/12/2019 10:22:00 019 12:18:00 DIS Emergency DANIELITO CURTIS DO [facility] ER SOA [id number] 03/10/2019 13:12:00 019 16:18:00 DIS Inpatient AVEL ROMANO, MARISSA Mandujano [facility] 4TH AFIB WITH RVR, CHEST PAIN [id number] 01/11/2018 13:31:00 018 14:19:00 DIS Outpatient TOMAS VEGA DO [facility] CARD 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 [id number] 10/23/2017 16:48:00 017 21:10:00 DIS Emergency LOIS ROMANO, GLENNY Mccabe [facility] ER CONSTIPATION/RE CTAL PAIN [id number] 02/13/2015 11:28:00 015 13:00:00 DIS Emergency LANDEN LUCAS APRN [facility] ER LEFT HIP PAIN [id number] 01/04/2015 12:07:00 015 14:15:00 DIS Emergency JUAN GUERRIER DO [facility] ER BACK PAIN [id number] 01/02/2015 08:32:00 015 23:59:59 CLS Outpatient CAITLYN SANTILLAN [facility] LAB PAF [id number] 12/13/2014 13:12:00 015 16:08:00 DIS Emergency VIVIAN ROMANO, SADA Conteh [facility] ER BACK PAIN [id number] 10/08/2014 08:09:00 014 00:01:00 DIS Outpatient CAITLYN SANTILLAN [facility] LAB PAF [id number] 07/22/2014 15:21:00 014 18:06:00 DIS Emergency LANDEN LUCAS APRN [facility] ER R UPPER BACK PAIN [id number] 06/24/2014 08:29:00 014 00:01:00 DIS Outpatient CAITLYN SANTILLAN [facility] LAB PAF [id number] 07/16/2014 13:20:00 014 14:42:00 DIS Emergency LANDEN LUCAS APRN [facility] ER LEFT WRIST INJURY [id number] 05/20/2014 12:54:00 014 20:00:00 DIS Outpatient AGUILA ROMANO FACC, UZIEL SIERRA CC DS [facility] ERLIPIDEMIA CORONARY ARTERY DISEASE [id number] 02/24/2014 08:12:00 014 00:01:00 DIS Outpatient CAITLYN SANTILLAN [facility] LAB PAF [id number] 10/08/2013 08:19:00 014 00:01:00 DIS Outpatient CAITLYN SANTILLAN [facility] LAB PAF [id number] 08/05/2013 12:38:00 013 00:01:00 DIS Outpatient CHANTE PENNINGTON APRN [facility] RAD ATRIAL FIB,ABNO RMAL ABDOMENTAL CT [id number] 10/21/2013 08:29:00 12/02/2 013 23:59:59 CLS Outpatient CAITLYN SANTILLAN [facility] LAB HLP [id number] 08/02/2013 01:20:00 15:25:00 DIS Inpatient LA NENA TOMPKINS MD [facility] 4TH INTRACTABLE ABD BACK PAIN;TRANSIENT AFIB;HTN;EL [id number] 05/02/2013 08:20:00 23:59:59 CLS Outpatient CAITLYN SANTILLAN [facility] LAB HYPERLIPIDEMIA [id number] 04/10/2013 07:53:00 11:20:00 DIS Outpatient MALA DALTON MD [facility] SDC SCREENING [id number] 04/03/2013 07:27:00 23:59:59 CLS Outpatient MALA DALTON MD [facility] PREOP SCREENING [id number] 04/06/2020 19:06:[address] Inpatient ION CONCEPCION MD [facility] ICU PAROXYSMAL AFIB [id number] 02/13/2015 11:42:00 Document Registration [id number] 11/04/2013 13:45:00 Document Registration [id number] 02/04/2013 08:04:00 Document Registration [id number] 01/24/2013 09:15:00 Document Registration [id number] 12/27/2012 10:17:00 Document Registration [id number] 11/27/2012 12:08:00 Document Registration [id number] 09/17/2012 08:27:00 Document Registration [id number] 06/26/2012 06:40:00 Document Registration
[2020-04-06] MEDS ORDERED: CATHETER FLUSH 10 ML SYR IV PRN (20:15)
[2020-04-06] MEDS: NS IV 1000 ML 1,000 ML IV SCH (21:07)
[2020-04-07] VITALS (19 sets, daily range): BP systolic 91–143; BP diastolic 70–108
[2020-04-07] MEDS: NS IV 1000 ML 1,000 ML IV SCH (00:24)
[2020-04-07 03:38] LABS: BASOPHILS % (AUTO) 0 % (0-10); EOSINOPHILS # (AUTO) 0.1 10^3/uL (0.0-0.3); EOSINOPHILS % (AUTO) 2 % (0-10); HEMATOCRIT 37 % (40-54); HEMOGLOBIN 12.7 G/DL (13.3-17.7); LYMPHOCYTES # (AUTO) 1.8 X 10^3 (1.0-4.0); LYMPHOCYTES % (AUTO) 40 % (12-44); MEAN CORPUSCULAR HEMOGLOBIN 32 PG (25-34); MEAN CORPUSCULAR HGB CONC 34 G/DL (32-36); MEAN CORPUSCULAR VOLUME 93 FL (80-99); MEAN PLATELET VOLUME 12.4 FL (7.4-10.4); MONOCYTES # (AUTO) 0.5 X 10^3 (0.0-1.0); MONOCYTES % (AUTO) 10 % (0-12); NEUTROPHILS # (AUTO) 2.2 X 10^3 (1.8-7.8); NEUTROPHILS % (AUTO) 48 % (42-75); PLATELET COUNT 83 10^3/uL (130-400); RED CELL DISTRIBUTION WIDTH 15.4 % (10.0-14.5); WHITE BLOOD COUNT 4.6 10^3/uL (4.3-11.0)
[2020-04-07 04:03] LABS: ALANINE AMINOTRANSFERASE 19 U/L (0-55); ALBUMIN 3.1 GM/DL (3.2-4.5); ALKALINE PHOSPHATASE 56 U/L (40-136); BILIRUBIN,TOTAL 0.9 MG/DL (0.1-1.0); BUN/CREATININE RATIO 14; CALCIUM 8.2 MG/DL (8.5-10.1); CARBON DIOXIDE 19 MMOL/L (21-32); CHLORIDE 110 MMOL/L (98-107); CREATININE SERUM 0.74 MG/DL (0.60-1.30); GFR ESTIMATED > 60; GLUCOSE 97 MG/DL (70-105); POTASSIUM 3.7 MMOL/L (3.6-5.0); SODIUM 140 MMOL/L (135-145); TOTAL PROTEIN 5.5 GM/DL (6.4-8.2)
--- NOTE | 2020-04-07 04:51 | Pulmonary Consultation ---
History of Present Illness History of Present Illness Date Seen by Provider: April 07, 2020 Time Seen by Provider: 04:46 Date of Admission History of Present Illness 84 yo poor historian with hx of Afib, CHF and CAD presented to ED secondary SOB and palpitations. Pt was found to be in AFIB RVR with rate 130's. He was started on Cardizem and admitted to ICU for close monitoring. He has had previous episodes. CXR shows bilateral R> L pleural effusions. I am consulted for pulmonary management. Allergies and Home Medications Allergies Coded Allergies: Ymkdviy-Fck-Iec Reductase Inhibitor (Unverified Allergy, Unknown, 03/12/19) codeine (Unverified Adverse Reaction, Mild, Altered taste, 02/13/15) Home Medications Apixaban 5 Mg Tablet, 5 MG PO BID, (Reported) Aspirin 81 Mg Tablet.dr, 81 MG PO 1200, (Reported) Diltiazem HCl Unknown Strength Cap.er.24h, 1 CAP PO BID, (Reported) Lidocaine HCl/Menthol 76.5 Gm Cream..g., TP HS, (Reported) Multivitamin 1 Each Tablet, 1 TAB PO 1200, (Reported) Past Fowzknr-Nuazzk-Gocogi Hx Patient Social History Alcohol Use: Denies Use Recreational Drug Use: No Smoking Status: Former Smoker Former Smoker, Quit: Dec 11, 1977 Recent Foreign Travel: No Contact w/Someone Who Travel: No Recent Infectious Disease Expo: No Recent Hopitalizations: No Immunizations Up To Date Tetanus Booster (TDap): Unknown PED Vaccines UTD: No Date of Pneumonia Vaccine: Aug 20, 2012 Date of Influenza Vaccine: Aug 20, 2019 Seasonal Allergies Seasonal Allergies: No Past Medical History Surgeries: Yes (Cardiac stent x 2) Coronary Stent, Orthopedic Respiratory: No Cardiac: Yes (Cardiac stent X2 ) Atrial Fibrillation, Deep Vein Thrombosis, Heart Attack, High Cholesterol, Hypertension Neurological: Yes Vertigo Reproductive Disorders: No Genitourinary: Yes Benign Prostatic Hyperpl Gastrointestinal: No Polyps Musculoskeletal: Yes (FX L WRIST) Chronic Back Pain Endocrine: No HEENT: No Cancer: No Psychosocial: Yes Anxiety Integumentary: No Blood Disorders: No Adverse Reaction/Blood Tranf: No Family Medical History Patient reports no known family medical history. No Pertinent Family Hx Review of Systems Time Seen by Provider: 04:53 Sepsis Event Evaluation Height, Weight, BMI Height: 6'2.00" Weight: 163lbs. 2.0oz. 73.979492cn; 19.23 BMI Method:Stated Exam Exam Vital Signs Date Time Temp Pulse Resp B/P (MAP) Pulse Ox O2 Delivery O2 Flow Rate FiO2 04/07/20 04:00 Room Air 04/07/20 04:00 93 26 120/75 (90) 96 Room Air 04/07/20 03:00 93 22 132/96 (108) 95 Room Air 04/07/20 02:00 94 26 127/78 (94) 97 Room Air 04/07/20 01:00 92 27 126/91 (103) 96 Room Air 04/07/20 01:00 100 04/07/20 00:00 89 26 127/77 (94) 97 Room Air 04/07/20 00:00 Room Air 04/07/20 00:00 36.6 04/06/20 23:00 81 29 106/90 (95) 95 Room Air 04/06/20 22:00 98 28 123/80 (94) 98 Room Air 04/06/20 21:30 109 12 108/93 (98) 98 Room Air 04/06/20 21:00 99 19 129/88 (102) 95 Room Air 04/06/20 20:45 90 28 135/84 (101) 95 Room Air 04/06/20 20:30 Room Air 04/06/20 20:30 92 18 124/97 (106) 95 Room Air 04/06/20 20:16 101 04/06/20 20:15 36.5 92 18 145/96 (112) 95 Room Air 04/06/20 20:07 36.6 96 17 121/92 (113) 99 Room Air 04/06/20 17:37 36.8 126 18 148/96 (113) 98 Room Air I & O 04/07/20 07:00 Intake Total 500 ml Balance 500 ml Height & Weight Height: 6'2.00" Weight: 163lbs. 2.0oz. 73.437778jk; 19.23 BMI Method:Stated General Appearance: No Apparent Distress, WD/WN HEENT: PERRL/EOMI Neck: Full Range of Motion, Normal Inspection Respiratory: Lungs Clear, Normal Breath Sounds, No Accessory Muscle Use, No Respiratory Distress Cardiovascular: No Edema, Normal Peripheral Pulses, Irregularly Irregular, Tachycardia Capillary Refill: Less Than 3 Seconds Extremity: Normal Capillary Refill, Normal Inspection, No Pedal Edema Neurologic/Psychiatric: Alert, Oriented x3, No Motor/Sensory Deficits Skin: Normal Color, Warm/Dry Results Lab Laboratory Tests 04/06/20 17:40 04/07/20 02:54 Assessment/Plan Assessment/Plan Afib RVR -Cardizem PO -Cardiology consulted SOB with with bilateral right > Left pleural effusions -SL IVF -Check echo -Check BNP -Give 80mg of Lasix x 1 -Eliquis CAD Dementia CHIDI HESS DO April 07, 2020 04:51
[2020-04-07] MEDS ORDERED: FUROSEMIDE 40 MG/4 ML INJ (LASIX) IVP ONE (05:00)
[2020-04-07 05:07] LABS: MAGNESIUM 1.8 MG/DL (1.6-2.4); PHOSPHORUS 3.4 MG/DL (2.3-4.7)
[2020-04-07] MEDS: POTASSIUM CL 10MEQ/50ML IVPB 50 ML IV SCH ×4 (06:29→06:31)
[2020-04-07] MEDS: MAGNESIUM 1 GM/100 ML IVPB 100 ML IV SCH (06:29)
[2020-04-07] MEDS: KCL 20 MEQ TAB (K-DUR) PO SCH (06:29)
--- NOTE | 2020-04-07 07:35 | Diagnostic Imaging Report ---
EXAMINATION: Chest radiograph, portable AP view. DATE: 04/07/2020 4:59 AM hours. INDICATION: 84-year-old male, pleural effusion. COMPARISON: 04/06/2020. FINDINGS: Stable overall appearance of the cardiomediastinal silhouette. There is probable pleural parenchymal scarring in the left lung apex. The patient's chin positioning does limit evaluation of the right lung apex. There is nonspecific and unchanged bibasilar airspace consolidation with potential bilateral pleural effusions. There are prior kyphoplasty changes. IMPRESSION: 1. Unchanged nonspecific bibasilar airspace consolidation which may relate to pleural effusions, infiltrate, and/or atelectasis. Dictated by: Dictated on workstation # [id number]
--- NOTE | 2020-04-07 07:56 | Consultation-Cardiology ---
HPI-Cardiology Cardiology Consultation: Date of Consultation 04/07/20 Time Seen by a Provider: 08:40 Date of Admission 04-06-2020 Attending Physician Ion Andersen MD Admitting Physician Jessi Matthews MD Consulting Physician Alvina Winters MD HPI: Chief Complaint: A-fib with RVR Increasing dyspnea Mr. Elkins is an 84 year old male admitted to ICU 3 from the ED with increasing SOB at home and palpitations. He states yesterday he got up and did his normal morning routine, but he did feel more SOB during activity. He reports he went to sit in his recliner and felt his breathing was labored and was having palpitations. He states he went outside because he felt hot and thought the cooler air would help, but the symptoms persisted. He then called EMS. He reports he still feels SOB this morning, but thinks it may be a little better. He does not report any c/o CP, syncope, near syncope or LE swelling. He reports he continues to have palpitations. He reports intermittent dizziness. He denies any LE n/v/d. He reports he does have a chronic dry cough. He reports over the last week he has had two episodes where he thought he had something in his hand, but when he tried to set it down, he looked again and realized he did not have anything in his hand. He states "I guess I was hallucinating". He denies missing any doses of his medications. Review of Systems-Cardiology Review of Systems Constitutional: No chills, No fever; malaise Eyes: As described under HPI; No vision change Ears/Nose/Throat: No epistaxis, No recent hearing loss, No ulcerations Respiratory: As described under HPI Cardiovascular: As described under HPI Gastrointestinal: No constipation, No diarrhea, No nausea, No vomiting Genitourinary: No dysuria Musculoskeletal: back pain (chronic) Skin: No rash on exposed areas, No ulcerations on exposed areas Psychiatric/Neurological: No anxiety, No depression, No seizure, No focal weakness, No syncope Hematologic: No bleeding abnormalities All Other Systems Reviewed Negative Unless Noted: Yes KKC-Cdqtvm-Ptzaxy Hx Patient Social History Alcohol Use: Denies Use Recreational Drug Use: No Smoking Status: Former Smoker Former smoker/When Quit: Nov 20, 1977 Recent Foreign Travel: No Recent Infectious Disease Expo: No Hospitalization with Isolation: Denies Immunizations Up To Date Tetanus Booster (TDap): Unknown Date of Pneumonia Vaccine: Aug 20, 2012 Date of Influenza Vaccine: Aug 20, 2019 Past Medical History PMH As described under Assessment. Family Medical History Family Medical History: Denies any family h/o CAD or CVA. Reports mother had HTN. Family History: Patient reports no known family medical history. Allergies and Home Medications Allergies Coded Allergies: Pgizlxb-Trn-Xep Reductase Inhibitor (Unverified Allergy, Unknown, 03/12/19) codeine (Unverified Adverse Reaction, Mild, Altered taste, 02/13/15) Uncoded Allergies: beta blockers (Adverse Reaction, Severe, severe bradycardia, 04/07/20) Home Medications Apixaban 5 Mg Tablet, 5 MG PO BID, (Reported) Aspirin 81 Mg Tablet.dr, 81 MG PO 1200, (Reported) Diltiazem HCl 120 Mg Cap.er.24h, 120 MG PO BID, (Reported) Docusate Sodium 100 Mg Capsule, 200 MG PO 1200, (Reported) Multivit-Min/FA/Lycopen/Lutein 1 Each Tablet, 1 EACH PO 1200, (Reported) Physical Exam-Cardiology Physical Exam Vital Signs/I&O 04/07/20 04/07/20 04/07/20 04/07/20 02:00 03:00 04:00 04:00 Pulse 94 93 93 Resp 26 22 26 B/P (MAP) 127/78 (94) 132/96 (108) 120/75 (90) Pulse Ox 97 95 96 O2 Delivery Room Air Room Air Room Air Room Air 04/07/20 04/07/20 04/07/20 04/07/20 05:00 06:00 07:00 07:00 Pulse 99 115 99 85 Resp 20 28 17 B/P (MAP) 140/102 (115) 125/79 (94) 125/89 (101) Pulse Ox 96 95 94 O2 Delivery Room Air Room Air Room Air 04/07/20 04/07/20 04/07/20 04/07/20 08:00 08:00 09:00 09:00 Pulse 99 108 Resp 8 18 B/P (MAP) 124/83 (97) 108/89 (95) Pulse Ox 97 97 96 O2 Delivery Room Air Room Air Room Air Room Air 04/07/20 04/07/20 10:00 12:00 Pulse 122 111 Resp 20 30 B/P (MAP) 134/108 (117) 143/95 (111) Pulse Ox 91 96 O2 Delivery Room Air Room Air 04/07/20 00:00 Intake Total 500 ml Balance 500 ml Capillary Refill : Less Than 3 Seconds Constitutional: AAO x 3, well-developed, well-nourished HEENT: PERRL, hearing is well preserved, oral hygience is good Neck: No carotid bruit; carotid pulses are 2 + bilaterally Respiratory: No accessory muscle use, No respiratory distress; chest expansion is symmetric, chest is bilaterally symmetric, other (good air entry) Cardiovascular: irregularly irregular; No JVD; S1 and S2 Gastrointestinal: No tender; soft, round, audible bowel sounds Extremities: no lower extremity edema bilateral Neurologic/Psychiatric: grossly intact (moves all extremities) Skin: No rash on exposed areas, No ulcerations on exposed areas Data Review Labs Laboratory Tests 04/06/20 17:40: White Blood Count 5.5, Red Blood Count 4.63, Hemoglobin 14.7, Hematocrit 43, Mean Corpuscular Volume 94, Mean Corpuscular Hemoglobin 32, Mean Corpuscular Hemoglobin Concent 34, Red Cell Distribution Width 15.8H, Platelet Count 98L, Mean Platelet Volume 12.6H, Neutrophils (%) (Auto) 51, Lymphocytes (%) (Auto) 37, Monocytes (%) (Auto) 11, Eosinophils (%) (Auto) 1, Basophils (%) (Auto) 0, Neutrophils # (Auto) 2.8, Lymphocytes # (Auto) 2.0, Monocytes # (Auto) 0.6, Eosinophils # (Auto) 0.1, Basophils # (Auto) 0.0, Prothrombin Time 15.3H, INR Comment 1.2, Activated Partial Thromboplast Time 34, D-Dimer 1.02H, Sodium Level 141, Potassium Level 3.6, Chloride Level 108H, Carbon Dioxide Level 21, Anion Gap 12, Blood Urea Nitrogen 12, Creatinine 0.84, Estimat Glomerular Filtration Rate > 60, BUN/Creatinine Ratio 14, Glucose Level 78, Calcium Level 8.9, Corrected Calcium 9.0, Magnesium Level 2.0, Total Bilirubin 0.8, Aspartate Amino Transf (AST/SGOT) 35H, Alanine Aminotransferase (ALT/SGPT) 23, Alkaline Phosphatase 76, Myoglobin 72.0, Troponin I 0.032H, C-Reactive Protein High Sensitivity 0.20, B-Type Natriuretic Peptide 274.2H, Total Protein 6.9, Albumin 3.9 04/07/20 02:54: White Blood Count 4.6, Red Blood Count 4.00L, Hemoglobin 12.7L, Hematocrit 37L, Mean Corpuscular Volume 93, Mean Corpuscular Hemoglobin 32, Mean Corpuscular Hemoglobin Concent 34, Red Cell Distribution Width 15.4H, Platelet Count 83L, Mean Platelet Volume 12.4H, Neutrophils (%) (Auto) 48, Lymphocytes (%) (Auto) 40, Monocytes (%) (Auto) 10, Eosinophils (%) (Auto) 2, Basophils (%) (Auto) 0, Neutrophils # (Auto) 2.2, Lymphocytes # (Auto) 1.8, Monocytes # (Auto) 0.5, Eosinophils # (Auto) 0.1, Basophils # (Auto) 0.0, Sodium Level 140, Potassium Level 3.7, Chloride Level 110H, Carbon Dioxide Level 19L, Anion Gap 11, Blood Urea Nitrogen 10, Creatinine 0.74, Estimat Glomerular Filtration Rate > 60, BUN/Creatinine Ratio 14, Glucose Level 97, Calcium Level 8.2L, Corrected Calcium 8.9, Magnesium Level 1.8, Total Bilirubin 0.9, Aspartate Amino Transf (AST/SGOT) 31, Alanine Aminotransferase (ALT/SGPT) 19, Alkaline Phosphatase 56, Troponin I < 0.028, Total Protein 5.5L, Albumin 3.1L, Phosphorus Level 3.4 Radiology NAME: TAJ ELKINS [facility] REC#: [id number] PT STATUS: ADM Silke : 1935 PHYSICIAN: ION ANDERSEN MD ADMIT DATE: 04/06/20/ICU Draft Date of Exam:04/07/20 CHEST 1 VIEW, AP/PA ONLY EXAMINATION: Chest radiograph, portable AP view. DATE: 04/07/2020 4:59 AM hours. INDICATION: 84-year-old male, pleural effusion. COMPARISON: 04/06/2020. FINDINGS: Stable overall appearance of the cardiomediastinal silhouette. There is probable pleural parenchymal scarring in the left lung apex. The patient's chin positioning does limit evaluation of the right lung apex. There is nonspecific and unchanged bibasilar airspace consolidation with potential bilateral pleural effusions. There are prior kyphoplasty changes. IMPRESSION: 1. Unchanged nonspecific bibasilar airspace consolidation which may relate to pleural effusions, infiltrate, and/or atelectasis. Dictated on workstation # [id number] Dict: 04/07/20 0731 Trans: 04/07/20 0734 [facility] [id number] Interpreted by: ALICIA ANTHONY MD Electronically signed by: ECG Impression ECG Initial ECG Impression: Atrial Fibrillation w/RVR A/P-Cardiology Assessment/Admission Diagnosis A Fib with RVR Mild troponin elevation, likely Type II VA secondary to a-fib with RVR A-fib first diagnosed on 03/10/19, treated with elec CV on 03/11/19, but with subsequent recurrence Acute on chronic Sys CHF: Echo of 03/10/19 (Dr Brady): LVEF 35-40%, mod to severe MR, mild to mod AI, aortic root 4.2 cm, PASP 50 mmHg Coronary artery disease. Last cath was on 05/20/14. It showed diffuse disease consisting of up to 50% stenoses in all cors. FFR across multiple mid-vessel LAD lesions was 0.92, indicating hemodynamic insignificance. There was a patent stent in mid LAD and in distal RCA. Distal RCA stent is known to be Promus [id number] placed in Aug 2012. LVEF on cath of May 2014 was 45% and LVEDP was mildly elevated Hyperlipidemia, but the patient is intolerant to statins. Postural hypotension, resolved following cessation of therapy with RYAN inhibitors and Terazosin. Dilated cardiomyopathy. EF 45% on cath of May 2014. EF 35-40% on echo of 03/10/19 Multiple medication intolerances. See below. Intolerance to beta-blockers on account of symptomatic bradycardia. Intolerance to RYAN inhibitors on account of postural hypotension Intolerance to ARBs on account of dizziness. Intolerance to warfarin due to nonspecific symptoms and fear of side effects - currently on apixaban Mild carotid arterial disease (less than 40%) per carotid ultrasonography of May 2016. Chronic moderate vertigo. Chronic low back pain, s/p low low back kyphoplasty, but back pain has persisted Discussion and Recomendations Complex management issue with multiple medication intolerances as noted above Chronic a-fib - comes in with a-fib with RVR - increase calcium channel charleen Echocardiogram to eval LVEF Continue OAC with Eliquis Treat with diuretics Monitor lab closely and replace electrolytes Further recs will be based on his hospital course We have spoken with Dr. Andersen We would like to thank Dr. Andersen for this consult Clinical Quality Measures DVT/VTE Risk/Contraindication: Risk Factor Score Per Nursin RFS Level Per Nursing on Admit: 2=Moderate CAITLYN SANTILLAN April 07, 2020 07:56
[2020-04-07] MEDS: APIXABAN 5 MG (ELIQUIS) TABLET PO SCH ×2 (08:25→20:25)
[2020-04-07] MEDS ORDERED: dilTIAZem120 MG (CARDIZEM CD) CAP PO SCH (09:00)
--- NOTE | 2020-04-07 09:20 | History & Physical-Hospitalist ---
History of Present Illness HPI/Chief Complaint Pt is an 84yoCM with a PMH of a-fib, HTN, CAD, CHF, HLD who presented to the ER due to SOB. He states it started yesterday after he took his dog out to the bathroom. He denies any chest pain but does complain of some palpitations from time to time. He is unsure if they occurred with this. He attempted to go back outside to see if this would help but it didn't so he called EMS. He was found to be in a-fib with RVR though his rate was erratic. He did not require a cardizem gtt. He is still getting his rate up to 122s but mostly is in the low 100s. He does report history of thinking something was in his hand and trying to put it down and realizing nothing was in it. This happened days ago. He reports he is compliant with his anticoagulation. Source: patient Date Seen 04/07/20 Time Seen by a Provider: 09:18 Attending Physician Ion Concepcion MD PCP Jessi Matthews MD Referring Physician Date of Admission April 06, 2020 at 19:06 Home Medications & Allergies Home Medications Reviewed patient Home Medication Reconciliation performed by pharmacy medication reconciliations fuel verification technician and/or nursing. Patients Allergies have been reviewed. Allergies Allergies Coded Allergies Lkvkpkf-Yyf-Hbv Reductase Inhibitor (Unverified Allergy, Unknown, 03/12/19) codeine (Unverified Adverse Reaction, Mild, Altered taste, 02/13/15) Uncoded Allergies beta blockers ( Adverse Reaction, Severe, severe bradycardia, 04/07/20) Past Pgffbti-Qjfred-Tqstdg Hx Past Med/Social Hx: Reviewed Nursing Past Med/Soc Hx Patient Social History Marrital Status: Alcohol Use: Denies Use Recreational Drug Use: No Smoking Status: Former Smoker Former Smoker, Quit: Dec 11, 1977 Recent Foreign Travel: No Contact w/other who traveled: No Recent Hopitalizations: No Recent Infectious Disease Expo: No Immunizations Up To Date Tetanus Booster (TDap): Unknown Pediatric: No Date of Pneumonia Vaccine: Aug 20, 2012 Date of Influenza Vaccine: Aug 20, 2019 Seasonal Allergies Seasonal Allergies: No Past Medical History Surgeries: Coronary Stent, Orthopedic Cardiac: Atrial Fibrillation, Deep Vein Thrombosis, Heart Attack, High Cholesterol, Hypertension Neurological: Vertigo Reproductive: No Genitourinary: Benign Prostatic Hyperpl Gastrointestinal: Polyps Musculoskeletal: Chronic Back Pain Psychosocial: Anxiety History of Blood Disorders: No Adverse Reaction to Blood Agarwal: No Family History Reviewed Nursing Family Hx Patient reports no known family medical history. No Pertinent Family Hx Review of Systems Constitutional: No chills, No fever EENTM: no symptoms reported Respiratory: short of breath Cardiovascular: No chest pain, No edema; Hx of Intervention, palpitations Gastrointestinal: No abdominal pain, No nausea, No vomiting Genitourinary: No decreased output, No frequency Musculoskeletal: no symptoms reported Skin: no symptoms reported Psychiatric/Neurological: See HPI Physical Exam Physical Exam Vital Signs Vital Signs - First Documented 04/06/20 17:37 Temp 36.8 Pulse 126 Resp 18 B/P (MAP) 148/96 (113) Pulse Ox 98 O2 Delivery Room Air Capillary Refill : Less Than 3 Seconds Height, Weight, BMI Height: 6'2.00" Weight: 163lbs. 2.0oz. 73.569230xb; 19.23 BMI Method:Stated General Appearance: No Apparent Distress, Chronically ill, Thin HEENT: PERRL/EOMI, Moist Mucous Membranes; No Scleral Icterus (L), No Scleral Icterus (R) Neck: Normal Inspection, Supple Respiratory: Lungs Clear, No Accessory Muscle Use, No Respiratory Distress Cardiovascular: Systolic Murmur, Irregularly Irregular, Tachycardia Gastrointestinal: Normal Bowel Sounds, Non Tender, Soft Extremity: No Calf Tenderness, No Pedal Edema Neurologic/Psychiatric: Alert, Oriented x3, Normal Mood/Affect Skin: Normal Color, Warm/Dry Results Results/Procedures Labs Laboratory Tests 04/06/20 17:40 04/07/20 02:54 Patient resulted labs reviewed. Imaging: Reviewed Imaging Report Imaging Date of Exam:04/07/20 CHEST 1 VIEW, AP/PA ONLY EXAMINATION: Chest radiograph, portable AP view. DATE: 04/07/2020 4:59 AM hours. INDICATION: 84-year-old male, pleural effusion. COMPARISON: 04/06/2020. FINDINGS: Stable overall appearance of the cardiomediastinal silhouette. There is probable pleural parenchymal scarring in the left lung apex. The patient's chin positioning does limit evaluation of the right lung apex. There is nonspecific and unchanged bibasilar airspace consolidation with potential bilateral pleural effusions. There are prior kyphoplasty changes. IMPRESSION: 1. Unchanged nonspecific bibasilar airspace consolidation which may relate to pleural effusions, infiltrate, and/or atelectasis. Assessment/Plan Admission Diagnosis A-fib with RVR Admission Status: Observation Assessment and Plan A-fib with RVR Acutely Decompensated Heart Failure CAD Increase cardizem- unable to tolerate Beta Blockers IV lasix Monitor on telemetry Continue home meds Monitor I/Os Continue Eliquis Echo ordered HLD Does not tolerate statin Psychosomatic disturbance No current episode or deficit Monitor DVT PPX: Eliquis Clinical Quality Measures DVT/VTE Risk/Contraindication: Risk Factor Score Per Nursin RFS Level Per Nursing on Admit: 2=Moderate ION CONCEPCION MD April 07, 2020 09:20
--- NOTE | 2020-04-07 09:34 | Consultation-Cardiology ---
HPI-Cardiology Cardiology Consultation: Date of Consultation 04/07/20 Time Seen by a Provider: 09:20 Date of Admission Attending Physician Halle Andersen MD Admitting Physician Jessi Matthews MD Consulting Physician UZIEL SHEEHAN MD, MA, FACP, FACC, FSCAI, CCDS HPI: Chief Complaint: CC: A-fib with RVR, increasing shortness of breath HPI Mr. Prince is an 84 year old male admitted to ICU 3 from the ED with increasing SOB at home and palpitations. He states yesterday he got up and did his normal morning routine, but he did feel more SOB during activity. He reports he went to sit in his recliner and felt his breathing was labored and was having palpitations. He states he went outside because he felt hot and thought the cooler air would help, but the symptoms persisted. He then called EMS. He reports he still feels SOB this morning, but thinks it may be a little better. He does not report any c/o CP, syncope, near syncope or LE swelling. He reports he continues to have palpitations. He reports intermittent dizziness. He denies any LE n/v/d. He reports he does have a chronic dry cough. He reports over the last week he has had two episodes where he thought he had something in his hand, but when he tried to set it down, he looked again and realized he did not have anything in his hand. He states "I guess I was hallucinating". He denies missing any doses of his medications. Review of Systems-Cardiology Review of Systems Constitutional: No chills, No fever; malaise Eyes: As described under HPI; No vision change Ears/Nose/Throat: No epistaxis, No recent hearing loss, No ulcerations Respiratory: As described under HPI Cardiovascular: As described under HPI Gastrointestinal: No constipation, No diarrhea, No nausea, No vomiting Genitourinary: No dysuria Musculoskeletal: back pain (chronic) Skin: No rash on exposed areas, No ulcerations on exposed areas Psychiatric/Neurological: No anxiety, No depression, No seizure, No focal weakness, No syncope Hematologic: No bleeding abnormalities All Other Systems Reviewed Negative Unless Noted: Yes ABY-Lkiehl-Wopvxe Hx Patient Social History Alcohol Use: Denies Use Recreational Drug Use: No Smoking Status: Former Smoker Former smoker/When Quit: Nov 20, 1977 Recent Foreign Travel: No Recent Infectious Disease Expo: No Hospitalization with Isolation: Denies Immunizations Up To Date Tetanus Booster (TDap): Unknown Date of Pneumonia Vaccine: Aug 20, 2012 Date of Influenza Vaccine: Aug 20, 2019 Past Medical History PMH As described under Assessment. Family Medical History Family Medical History: Denies any family h/o CAD or CVA. Reports mother had HTN. Family History: Patient reports no known family medical history. Allergies and Home Medications Allergies Coded Allergies: Ivheqca-Dye-Ooy Reductase Inhibitor (Unverified Allergy, Unknown, 03/12/19) codeine (Unverified Adverse Reaction, Mild, Altered taste, 02/13/15) Uncoded Allergies: beta blockers (Adverse Reaction, Severe, severe bradycardia, 04/07/20) Home Medications Apixaban 5 Mg Tablet, 5 MG PO BID, (Reported) Aspirin 81 Mg Tablet.dr, 81 MG PO 1200, (Reported) Diltiazem HCl Unknown Strength Cap.er.24h, 1 CAP PO BID, (Reported) Lidocaine HCl/Menthol 76.5 Gm Cream..g., TP HS, (Reported) Multivitamin 1 Each Tablet, 1 TAB PO 1200, (Reported) Patient Home Medication List Home Medication List Reviewed: Yes Physical Exam-Cardiology Physical Exam Vital Signs/I&O 04/06/20 04/06/20 04/07/20 04/07/20 22:00 23:00 00:00 00:00 Temp 36.6 Pulse 98 81 Resp 28 29 B/P (MAP) 123/80 (94) 106/90 (95) Pulse Ox 98 95 O2 Delivery Room Air Room Air Room Air 04/07/20 04/07/20 04/07/20 04/07/20 00:00 01:00 01:00 02:00 Pulse 89 100 92 94 Resp 26 27 26 B/P (MAP) 127/77 (94) 126/91 (103) 127/78 (94) Pulse Ox 97 96 97 O2 Delivery Room Air Room Air Room Air 04/07/20 04/07/20 04/07/20 04/07/20 03:00 04:00 04:00 05:00 Pulse 93 93 99 Resp 22 26 20 B/P (MAP) 132/96 (108) 120/75 (90) 140/102 (115) Pulse Ox 95 96 96 O2 Delivery Room Air Room Air Room Air Room Air 04/07/20 04/07/20 04/07/20 04/07/20 06:00 07:00 07:00 08:00 Pulse 115 99 85 99 Resp 28 17 8 B/P (MAP) 125/79 (94) 125/89 (101) 124/83 (97) Pulse Ox 95 94 97 O2 Delivery Room Air Room Air Room Air 04/07/20 08:00 O2 Delivery Room Air 04/07/20 00:00 Intake Total 500 ml Balance 500 ml Capillary Refill : Less Than 3 Seconds Constitutional: AAO x 3, well-developed, well-nourished HEENT: PERRL, hearing is well preserved, oral hygience is good Neck: No carotid bruit; carotid pulses are 2 + bilaterally Respiratory: No accessory muscle use, No respiratory distress; chest expansion is symmetric, chest is bilaterally symmetric, other (good air entry) Cardiovascular: irregularly irregular; No JVD; S1 and S2 Gastrointestinal: No tender; soft, round, audible bowel sounds Extremities: no lower extremity edema bilateral Neurologic/Psychiatric: grossly intact (moves all extremities) Skin: No rash on exposed areas, No ulcerations on exposed areas Data Review Labs Laboratory Tests 04/06/20 17:40: White Blood Count 5.5, Red Blood Count 4.63, Hemoglobin 14.7, Hematocrit 43, Mean Corpuscular Volume 94, Mean Corpuscular Hemoglobin 32, Mean Corpuscular Hemoglobin Concent 34, Red Cell Distribution Width 15.8H, Platelet Count 98L, Mean Platelet Volume 12.6H, Neutrophils (%) (Auto) 51, Lymphocytes (%) (Auto) 37, Monocytes (%) (Auto) 11, Eosinophils (%) (Auto) 1, Basophils (%) (Auto) 0, Neutrophils # (Auto) 2.8, Lymphocytes # (Auto) 2.0, Monocytes # (Auto) 0.6, Eosinophils # (Auto) 0.1, Basophils # (Auto) 0.0, Prothrombin Time 15.3H, INR Comment 1.2, Activated Partial Thromboplast Time 34, D-Dimer 1.02H, Sodium Level 141, Potassium Level 3.6, Chloride Level 108H, Carbon Dioxide Level 21, Anion Gap 12, Blood Urea Nitrogen 12, Creatinine 0.84, Estimat Glomerular Filtration Rate > 60, BUN/Creatinine Ratio 14, Glucose Level 78, Calcium Level 8.9, Corrected Calcium 9.0, Magnesium Level 2.0, Total Bilirubin 0.8, Aspartate Amino Transf (AST/SGOT) 35H, Alanine Aminotransferase (ALT/SGPT) 23, Alkaline Phosphatase 76, Myoglobin 72.0, Troponin I 0.032H, C-Reactive Protein High Sensitivity 0.20, B-Type Natriuretic Peptide 274.2H, Total Protein 6.9, Albumin 3.9 04/07/20 02:54: White Blood Count 4.6, Red Blood Count 4.00L, Hemoglobin 12.7L, Hematocrit 37L, Mean Corpuscular Volume 93, Mean Corpuscular Hemoglobin 32, Mean Corpuscular Hemoglobin Concent 34, Red Cell Distribution Width 15.4H, Platelet Count 83L, Mean Platelet Volume 12.4H, Neutrophils (%) (Auto) 48, Lymphocytes (%) (Auto) 40 , Monocytes (%) (Auto) 10, Eosinophils (%) (Auto) 2, Basophils (%) (Auto) 0, Neutrophils # (Auto) 2.2, Lymphocytes # (Auto) 1.8, Monocytes # (Auto) 0.5, Eosinophils # (Auto) 0.1, Basophils # (Auto) 0.0, Sodium Level 140, Potassium Level 3.7, Chloride Level 110H, Carbon Dioxide Level 19L, Anion Gap 11, Blood Urea Nitrogen 10, Creatinine 0.74, Estimat Glomerular Filtration Rate > 60, BUN/Creatinine Ratio 14, Glucose Level 97, Calcium Level 8.2L, Corrected Calcium 8.9, Magnesium Level 1.8, Total Bilirubin 0.9, Aspartate Amino Transf (AST/SGOT) 31, Alanine Aminotransferase (ALT/SGPT) 19, Alkaline Phosphatase 56, Troponin I < 0.028, Total Protein 5.5L, Albumin 3.1L, Phosphorus Level 3.4 A/P-Cardiology Assessment/Admission Diagnosis A Fib with RVR Mild troponin elevation, likely Type II HI secondary to a-fib with RVR A-fib first diagnosed on 03/10/19, treated with elec CV on 03/11/19, but with subsequent recurrence Acute on chronic Sys CHF: Echo of 03/10/19 (Dr Brady): LVEF 35-40%, mod to severe MR, mild to mod AI, aortic root 4.2 cm, PASP 50 mmHg Coronary artery disease. Last cath was on 05/20/14. It showed diffuse disease consisting of up to 50% stenoses in all cors. FFR across multiple mid-vessel LAD lesions was 0.92, indicating hemodynamic insignificance. There was a patent stent in mid LAD and in distal RCA. Distal RCA stent is known to be Promus 2.5x12 placed in Aug 2012. LVEF on cath of May 2014 was 45% and LVEDP was mildly elevated Hyperlipidemia, but the patient is intolerant to statins. Postural hypotension, resolved following cessation of therapy with RYAN inhibitors and Terazosin. Dilated cardiomyopathy. EF 45% on cath of May 2014. EF 35-40% on echo of 03/10/19 Multiple medication intolerances. See below. Intolerance to beta-blockers on account of symptomatic bradycardia. Intolerance to RYAN inhibitors on account of postural hypotension Intolerance to ARBs on account of dizziness. Intolerance to warfarin due to nonspecific symptoms and fear of side effects - currently on apixaban Mild carotid arterial disease (less than 40%) per carotid ultrasonography of May 2016. Chronic moderate vertigo. Chronic low back pain, s/p low low back kyphoplasty, but back pain has persisted Discussion and Recomendations Complex management issue with multiple medication intolerances as noted above Chronic a-fib - comes in with a-fib with RVR - increase calcium channel charleen Echocardiogram to eval LVEF Continue OAC with Eliquis Treat with diuretics Monitor lab closely and replace electrolytes Further recs will be based on his hospital course We would like to thank Dr. Andersen for this consult Clinical Quality Measures DVT/VTE Risk/Contraindication: Risk Factor Score Per Nursin RFS Level Per Nursing on Admit: 2=Moderate UZIEL SHEEHAN MD FACP FAC CCDS April 07, 2020 09:34
[2020-04-07] MEDS ORDERED: MULT-1065 PO (10:53)
[2020-04-07] MEDS ORDERED: DILT-27 PO (10:54)
[2020-04-07] MEDS ORDERED: DOCU-238 PO (10:54)
--- NOTE | 2020-04-07 11:10 | NUR ---
SPOKE WITH THE PT, WENT THRU THE EXT MED HISTORY AND CALLED DR. TSAI OFFICE TO COMPLETE THE MED REC WHEN I ASKED THE PT WHERE HE GETS ELIQUIS FROM HE STATES " FROM [employer]" I ASKED IF HE KNEW WHO SENT IT TO HIM AND HE DID NOT KNOW- I CALLED DR. TSAI OFFICE TO SEE IF THEY COULD SEE WHERE HIS LAST RX WAS SENT TO. THEY HAVE IN HIS RECORDS THAT HE GETS IT THROUGH THE [employer] PATIENT REBATE PROGRAM OTC MEDS: ASPIRIN 81MG [employer] STOOL SOFTENER
--- NOTE | 2020-04-07 14:15 | NUR ---
Completed Advance Directive with pt
--- NOTE | 2020-04-07 14:38 | NUR ---
CM/SS: Visited with pt as to plan for discharge Plan: Pt came from home and reports he does not need any services at the time of discharge Summary: Pt reports he is feeling better. He lives at home with his and reports they are getting along fine and he does not need any additional services when he leaves the hospital. Pt reports children that live fairly close and they are coming to visit this week and can help if they need something. He reports they will be fine.
[2020-04-08] VITALS (20 sets, daily range): BP systolic 90–132; BP diastolic 68–101
[2020-04-08 03:40] LABS: BASOPHILS % (AUTO) 0 % (0-10); EOSINOPHILS # (AUTO) 0.1 10^3/uL (0.0-0.3); EOSINOPHILS % (AUTO) 2 % (0-10); HEMATOCRIT 39 % (40-54); HEMOGLOBIN 13.3 G/DL (13.3-17.7); LYMPHOCYTES # (AUTO) 1.7 X 10^3 (1.0-4.0); LYMPHOCYTES % (AUTO) 31 % (12-44); MEAN CORPUSCULAR HEMOGLOBIN 32 PG (25-34); MEAN CORPUSCULAR HGB CONC 35 G/DL (32-36); MEAN CORPUSCULAR VOLUME 93 FL (80-99); MEAN PLATELET VOLUME 11.8 FL (7.4-10.4); MONOCYTES # (AUTO) 0.6 X 10^3 (0.0-1.0); MONOCYTES % (AUTO) 10 % (0-12); NEUTROPHILS # (AUTO) 3.2 X 10^3 (1.8-7.8); NEUTROPHILS % (AUTO) 57 % (42-75); PLATELET COUNT 80 10^3/uL (130-400); RED CELL DISTRIBUTION WIDTH 15.5 % (10.0-14.5); WHITE BLOOD COUNT 5.6 10^3/uL (4.3-11.0)
[2020-04-08 03:53] LABS: CHLORIDE 107 MMOL/L (98-107); POTASSIUM 3.5 MMOL/L (3.6-5.0); SODIUM 140 MMOL/L (135-145)
[2020-04-08 03:54] LABS: CALCIUM 8.7 MG/DL (8.5-10.1); GLUCOSE 99 MG/DL (70-105)
[2020-04-08 03:56] LABS: CARBON DIOXIDE 21 MMOL/L (21-32)
[2020-04-08 03:58] LABS: CREATININE SERUM 0.77 MG/DL (0.60-1.30); GFR ESTIMATED > 60; PHOSPHORUS 3.5 MG/DL (2.3-4.7)
[2020-04-08 03:59] LABS: BUN/CREATININE RATIO 13
[2020-04-08 04:01] LABS: MAGNESIUM 1.8 MG/DL (1.6-2.4)
[2020-04-08] MEDS: MAGNESIUM 1 GM/100 ML IVPB 100 ML IV SCH (05:12)
[2020-04-08] MEDS: POTASSIUM CL 10MEQ/50ML IVPB 50 ML IV SCH ×5 (05:12→08:58)
[2020-04-08] MEDS: KCL 20 MEQ TAB (K-DUR) PO SCH (05:12)
--- NOTE | 2020-04-08 05:24 | Pulmonary Progress Note ---
Subjective Time Seen by a Provider: 05:19 Subjective/Events-last exam Pt appears to be doing better Sepsis Event Evaluation Height, Weight, BMI Height: 6'2.00" Weight: 163lbs. 2.0oz. 73.759625wy; 19.23 BMI Method:Stated Exam Exam Vital Signs Date Time Temp Pulse Resp B/P (MAP) Pulse Ox O2 Delivery O2 Flow Rate FiO2 04/08/20 04:00 84 113/84 (94) 93 Room Air 04/08/20 03:15 Room Air 04/08/20 03:12 36.1 04/08/20 03:00 90 121/68 (85) 95 Room Air 04/08/20 02:00 89 18 92 Room Air 04/08/20 01:42 95 04/08/20 01:00 103 30 132/101 (111) 95 Room Air 04/08/20 00:00 93 32 129/85 (100) 91 Room Air 04/07/20 23:05 36.3 04/07/20 23:05 Room Air 04/07/20 23:00 79 14 112/70 (84) 98 Room Air 04/07/20 22:02 36.6 04/07/20 22:00 106 31 115/81 (92) 95 Room Air 04/07/20 21:00 90 15 120/77 (91) 98 Room Air 04/07/20 20:33 97 Room Air 04/07/20 20:00 93 12 115/87 (96) 96 Room Air 04/07/20 20:00 Room Air 04/07/20 19:11 36.6 04/07/20 19:00 90 11 114/89 (97) 94 Room Air 04/07/20 19:00 90 04/07/20 18:00 92 12 91/76 (81) 98 Room Air 04/07/20 17:10 36.8 04/07/20 16:00 90 11 115/77 (90) 94 Room Air 04/07/20 16:00 Room Air 04/07/20 15:29 36.1 04/07/20 13:00 102 04/07/20 12:00 111 30 143/95 (111) 96 Room Air 04/07/20 12:00 Room Air 04/07/20 10:00 122 20 134/108 (117) 91 Room Air 04/07/20 09:00 108 18 108/89 (95) 96 Room Air 04/07/20 09:00 97 Room Air 04/07/20 08:30 36.4 04/07/20 08:00 Room Air 04/07/20 08:00 99 8 124/83 (97) 97 Room Air 04/07/20 07:00 85 04/07/20 07:00 99 17 125/89 (101) 94 Room Air 04/07/20 06:00 115 28 125/79 (94) 95 Room Air I & O 04/08/20 07:00 Intake Total 1200 ml Output Total 3200 ml Balance -2000 ml Height & Weight Height: 6'2.00" Weight: 163lbs. 2.0oz. 73.940410qh; 19.23 BMI Method:Stated General Appearance: No Apparent Distress, Chronically ill, Thin HEENT: PERRL/EOMI, Moist Mucous Membranes; No Scleral Icterus (L), No Scleral Icterus (R) Neck: Normal Inspection, Supple Respiratory: Lungs Clear, No Accessory Muscle Use, No Respiratory Distress Cardiovascular: Systolic Murmur, Irregularly Irregular, Tachycardia Capillary Refill: Less Than 3 Seconds Extremity: No Calf Tenderness, No Pedal Edema Neurologic/Psychiatric: Alert, Oriented x3, Normal Mood/Affect Skin: Normal Color, Warm/Dry Results Lab Laboratory Tests 04/06/20 17:40 04/07/20 02:54 04/08/20 02:32 Assessment/Plan Assessment/Plan Afib RVR -Cardizem PO -Cardiology consulted SOB with with bilateral right > Left pleural effusions -SL IVF -Echo 15-20 % -Check BNP -Give 80mg of Lasix x 1 -Eliquis Hypokalemia -replace CAD Dementia CHIDI HESS DO April 08, 2020 05:24
[2020-04-08] MEDS ORDERED: NS IV 500 ML 500 ML IV ONE (05:30)
--- NOTE | 2020-04-08 06:02 | Diagnostic Imaging Report ---
INDICATION: Shortness of air. COMPARISON: 04/07/2020 FINDINGS: Single frontal radiographic view of the chest was obtained and demonstrates persistent severe cardiomegaly and mild pulmonary vascular congestion. Lungs continue to show moderate bibasilar effusions with associated bibasilar airspace disease. Overall, there has been no significant interval change. There is no pneumothorax. IMPRESSION: 1. Stable exam of the chest showing persistent severe cardiomegaly, mild vascular congestion, and large bibasilar effusions. Dictated by: Dictated on workstation # [id number]
[2020-04-08] MEDS ORDERED: SPIR25TA5 PO (08:21)
[2020-04-08] MEDS ORDERED: DILT120C82 PO (08:21)
[2020-04-08] MEDS ORDERED: DIGO250T3 PO (08:21)
[2020-04-08] MEDS ORDERED: FURO80TA83 PO (08:21)
[2020-04-08] MEDS ORDERED: POTA-51 PO (08:21)
--- NOTE | 2020-04-08 08:25 | Progress Note - Cardiology ---
Cardiology SOAP Progress Note Subjective: Feels better today Less short of breath No cp or palp or syncope or swelling No n/v/d No focal weakness Insists on going home Objective: I&O/Vital Signs 04/07/20 04/07/20 04/07/20 04/07/20 20:33 21:00 22:00 22:02 Temp 36.6 Pulse 90 106 Resp 15 31 B/P (MAP) 120/77 (91) 115/81 (92) Pulse Ox 97 98 95 O2 Delivery Room Air Room Air Room Air 04/07/20 04/07/20 04/07/20 04/08/20 23:00 23:05 23:05 00:00 Temp 36.3 Pulse 79 93 Resp 14 32 B/P (MAP) 112/70 (84) 129/85 (100) Pulse Ox 98 91 O2 Delivery Room Air Room Air Room Air 04/08/20 04/08/20 04/08/20 04/08/20 01:00 01:42 02:00 03:00 Pulse 103 95 89 90 Resp 30 18 B/P (MAP) 132/101 (111) 121/68 (85) Pulse Ox 95 92 95 O2 Delivery Room Air Room Air Room Air 04/08/20 04/08/20 04/08/20 04/08/20 03:12 03:15 04:00 05:00 Temp 36.1 Pulse 84 90 B/P (MAP) 113/84 (94) 111/86 (94) Pulse Ox 93 94 O2 Delivery Room Air Room Air Room Air 04/08/20 04/08/20 06:00 07:57 Temp 36.0 Pulse 106 Resp 27 B/P (MAP) 115/86 (96) Pulse Ox 97 O2 Delivery Room Air 04/08/20 00:00 Intake Total 950 ml Output Total 1250 ml Balance -300 ml Weight (Pounds): 163 Weight (Ounces): 2.0 Weight (Calculated Kilograms): 73.772153 Constitutional: AAO x 3, well-developed, well-nourished Respiratory: No accessory muscle use, No respiratory distress; chest expansion is symmetric, chest is bilaterally symmetric, other (good air entry) Cardiovascular: irregularly irregular, S1 and S2, systolic murmur (soft ELIE at card base) Gastrointestional: No tender; soft, round, audible bowel sounds Extremities: no lower extremity edema bilateral Neurologic/Psychiatric: grossly intact (moves all extremities) Skin: No rash on exposed areas, No ulcerations on exposed areas Results/Procedures: Labs Laboratory Tests 04/08/20 02:32: White Blood Count 5.6, Red Blood Count 4.17L, Hemoglobin 13.3, Hematocrit 39L, Mean Corpuscular Volume 93, Mean Corpuscular Hemoglobin 32, Mean Corpuscular Hemoglobin Concent 35, Red Cell Distribution Width 15.5H, Platelet Count 80L, Mean Platelet Volume 11.8H, Neutrophils (%) (Auto) 57, Lymphocytes (%) (Auto) 31, Monocytes (%) (Auto) 10, Eosinophils (%) (Auto) 2, Basophils (%) (Auto) 0, Neutrophils # (Auto) 3.2, Lymphocytes # (Auto) 1.7, Monocytes # (Auto) 0.6, Eosinophils # (Auto) 0.1, Basophils # (Auto) 0.0, Sodium Level 140, Potassium Level 3.5L, Chloride Level 107, Carbon Dioxide Level 21, Anion Gap 12, Blood Ure a Nitrogen 10, Creatinine 0.77, Estimat Glomerular Filtration Rate > 60, BUN/Creatinine Ratio 13, Glucose Level 99, Calcium Level 8.7, Phosphorus Level 3.5, Magnesium Level 1.8, Thyroid Stimulating Hormone (TSH) 2.36 Laboratory Tests 04/06/20 17:40 04/07/20 02:54 04/08/20 02:32 A/P: Assessment: A Fib with RVR. A-fib first diagnosed on 03/10/19, treated with elec CV on 03/11/19, but with subsequent recurrence Acute on chronic sys CHF due to dilated cardiomyopathy: Echo of 04/07/20: LVEF 15-20%, diffuse hypokinesis, mod to severe MR and TR, RVSP 25 mmHg Mild troponin elevation, likely Type II IA secondary to a-fib with RVR Coronary artery disease. Last cath was on 05/20/14. It showed diffuse disease c onsisting of up to 50% stenoses in all cors. FFR across multiple mid-vessel LAD lesions was 0.92, indicating hemodynamic insignificance. There was a patent stent in mid LAD and in distal RCA. Distal RCA stent is known to be Promus 2.5x12 placed in Aug 2012. LVEF on cath of May 2014 was 45% and LVEDP was mildly elevated Hyperlipidemia, but the patient is intolerant to statins. Postural hypotension, resolved following cessation of therapy with RYAN inhibitors and Terazosin. Multiple medication intolerances. See below. Intolerance to beta-blockers on account of symptomatic bradycardia and hypotension. Intolerance to RYAN inhibitors on account of postural hypotension Intolerance to ARBs on account of dizziness. Intolerance to warfarin due to nonspecific symptoms and fear of side effects - currently on apixaban Mild carotid arterial disease (less than 40%) per carotid ultrasonography of May 2016. Chronic moderate vertigo. Chronic low back pain, s/p low low back kyphoplasty, but back pain has persisted Plan: * Complex management * Advised repeat cath to eval for a cor basis for deterioration of EF. He has no t agreed to that or any invasive procedure. Wishes to be managed conservatively and empirically only * Advised continuing hospitalization for titration of meds, especially given his multiple intolerances. He refuses. Wishes to go home * Diuretics and K added to regimen. Dig added to regimen. Close outpt f/u advised (clinical f/u and f/u on labs) * I discussed his CV issues with him in detail * Discussed his case with Dr Andersen this am UZIEL SHEEHAN MD [facility] CCDS April 08, 2020 08:25
[2020-04-08] MEDS ORDERED: DIGOXIN 0.25 MG (LANOXIN) TAB PO ONE (08:30)
[2020-04-08] MEDS: FUROSEMIDE 40 MG/4 ML INJ (LASIX) IVP SCH (08:41)
[2020-04-08] MEDS: SPIRONOLACTONE 25 MG (ALDACTONE) TAB PO SCH (08:41)
[2020-04-08] MEDS: APIXABAN 5 MG (ELIQUIS) TABLET PO SCH ×2 (08:42→19:47)
--- NOTE | 2020-04-08 08:48 | Discharge Inst-Simple/Standard ---
Discharge Inst-Standard Discharge Medications New, Converted or Re-Newed RX: Transmitted to Pharmacy Patient Instructions/Follow Up Plan of Care/Instructions/FU: Please continue to take your medications as written. Please follow up with Dr Winters as scheduled. Please get established with a PCP as well. Activity as Tolerated: Yes Discharge Diet: Cardiac Diet Return to The Hospital For: Chest pain, shortness of breath, palpitations, confusion, fever, if you feel you are getting worse. Planned Outpatient Orders/Ref. Pneu Vac Indicated: Yes ION CONCEPCION MD April 08, 2020 08:48
--- NOTE | 2020-04-08 08:50 | Discharge Summary ---
Diagnosis/Chief Complaint Date of Admission April 08, 2020 at 08:26 Date of Discharge Discharge Date: April 08, 2020 Admission Diagnosis A-fib with RVR Primary Care Jessi Matthews MD Discharge Summary Discharge Physical Exam Allergies: Coded Allergies: Jhqjbdw-Xez-Sct Reductase Inhibitor (Unverified Allergy, Unknown, 03/12/19) codeine (Unverified Adverse Reaction, Mild, Altered taste, 02/13/15) Uncoded Allergies: beta blockers (Adverse Reaction, Severe, severe bradycardia, 04/07/20) Vitals & I&Os Vital Signs Date Time Temp Pulse Resp B/P (MAP) Pulse Ox O2 Delivery O2 Flow Rate FiO2 04/08/20 09:00 96 Room Air 04/08/20 08:00 95 31 110/84 (93) 04/08/20 07:57 36.0 Hospital Course Labs (last 24 hrs) Laboratory Tests 04/08/20 02:32: White Blood Count 5.6, Red Blood Count 4.17L, Hemoglobin 13.3, Hematocrit 39L, Mean Corpuscular Volume 93, Mean Corpuscular Hemoglobin 32, Mean Corpuscular Hemoglobin Concent 35, Red Cell Distribution Width 15.5H, Platelet Count 80L, Mean Platelet Volume 11.8H, Neutrophils (%) (Auto) 57, Lymphocytes (%) (Auto) 31, Monocytes (%) (Auto) 10, Eosinophils (%) (Auto) 2, Basophils (%) (Auto) 0, Neutrophils # (Auto) 3.2, Lymphocytes # (Auto) 1.7, Monocytes # (Auto) 0.6, Eosinophils # (Auto) 0.1, Basophils # (Auto) 0.0, Sodium Level 140, Potassium Level 3.5L, Chloride Level 107, Carbon Dioxide Level 21, Anion Gap 12, Blood Urea Nitrogen 10, Creatinine 0.77, Estimat Glomerular Filtration Rate > 60, BUN/Creatinine Ratio 13, Glucose Level 99, Calcium Level 8.7, Phosphorus Level 3.5, Magnesium Level 1.8, Thyroid Stimulating Hormone (TSH) 2.36 Patient resulted labs reviewed. Pending Labs Imaging: Reviewed Imaging Report Discharge Home Medications: Active Scripts Active Digoxin 250 Mcg Tablet 250 Mcg PO DAILY Potassium Chloride 20 Meq Tablet.er 20 Meq PO DAILY Cardizem Cd (Diltiazem HCl) 120 Mg Cap.er.24h 120 Mg PO DAILY Two capsules in the morning and one capsule in the evening Lasix (Furosemide) 80 Mg Tablet 80 Mg PO DAILY Spironolactone 25 Mg Tablet 25 Mg PO DAILY Reported Stool Softener (Docusate Sodium) 100 Mg Capsule 200 Mg PO 1200 Diltiazem 24Hr ER (Diltiazem HCl) 120 Mg Cap.er.24h 120 Mg PO BID Centravites 50 Plus Tablet (Multivit-Min/FA/Lycopen/Lutein) 1 Each Tablet 1 Each PO 1200 Aspirin EC (Aspirin) 81 Mg Tablet.dr 81 Mg PO 1200 Eliquis (Apixaban) 5 Mg Tablet 5 Mg PO BID Instructions to patient/family Please see electronic discharge instructions given to patient. Clinical Quality Measures DVT/VTE Risk/Contraindication: Risk Factor Score Per Nursin RFS Level Per Nursing on Admit: 2=Moderate ION CONCEPCION MD April 08, 2020 08:50
[2020-04-08] MEDS ORDERED: KCL 20 MEQ TAB (K-DUR) PO ONE (09:00)
--- NOTE | 2020-04-08 11:03 | Progress Note - Hospitalist ---
Subjective HPI/CC On Admission Date Seen by Provider: April 08, 2020 Time Seen by Provider: 10:59 Pt is an 84yoCM with a PMH of a-fib, HTN, CAD, CHF, HLD who presented to the ER due to SOB. He states it started yesterday after he took his dog out to the bathroom. He denies any chest pain but does complain of some palpitations from time to time. He is unsure if they occurred with this. He attempted to go back outside to see if this would help but it didn't so he called EMS. He was found to be in a-fib with RVR though his rate was erratic. He did not require a cardizem gtt. He is still getting his rate up to 122s but mostly is in the low 100s. He does report history of thinking something was in his hand and trying to put it down and realizing nothing was in it. This happened days ago. He reports he is compliant with his anticoagulation. Subjective/Events-last exam Pt reports feeling better today. At first was requesting discharge home but now agreeable to stay. Objective Exam Vital Signs Vital Signs Date Time Temp Pulse Resp B/P (MAP) Pulse Ox O2 Delivery O2 Flow Rate FiO2 04/08/20 09:00 96 Room Air 04/08/20 08:00 95 31 110/84 (93) 04/08/20 07:57 36.0 Capillary Refill : Less Than 3 Seconds General Appearance: No Apparent Distress, Chronically ill, Thin Respiratory: Lungs Clear, No Respiratory Distress Cardiovascular: Irregularly Irregular, Tachycardia Gastrointestinal: Normal Bowel Sounds, Non Tender, Soft Extremity: No Calf Tenderness, No Pedal Edema Neurologic/Psychiatric: Alert, Oriented x3 Results/Procedures Lab Laboratory Tests 04/08/20 02:32 Patient resulted labs reviewed. Imaging: Reviewed Imaging Report Assessment/Plan Assessment and Plan Assess & Plan/Chief Complaint A-fib with RVR Acutely Decompensated Heart Failure CAD Increase cardizem- unable to tolerate Beta Blockers Digoxin added IV lasix Monitor on telemetry Continue home meds Monitor I/Os- negative 2L yesterday Continue Eliquis Echo shows EF of 15-20% and severe diffuse hypokinesis, mod/severe tricuspid and mitral regurg HLD Does not tolerate statin Psychosomatic disturbance No current episode or deficit Monitor DVT PPX: Eliquis Clinical Quality Measures DVT/VTE Risk/Contraindication: Risk Factor Score Per Nursin RFS Level Per Nursing on Admit: 2=Moderate ION CONCEPCION MD April 08, 2020 11:03
[2020-04-08] MEDS ORDERED: ASPIRIN E.C. 81 MG (ECOTRIN) TAB PO SCH (12:00)
[2020-04-08] MEDS ORDERED: DIGOXIN 0.25 MG (LANOXIN) TAB PO NR (13:45)
--- NOTE | 2020-04-08 14:55 | NUR ---
Telephone report received from Elsie RUSSO. Patient arrived to ICU12 at 1455 via stretcher with NT from ED. Patient is alert and oriented. VSS. Bed in lowest position, wheels locked and call light is in reach. Addendum: 04/08/20 at 1850 by STEPHANIE MARTÍNEZ RN Wrong patient
[2020-04-08] MEDS ORDERED: NS IV 1000 ML 1,000 ML ONE (14:59)
--- NOTE | 2020-04-08 16:17 | NUR ---
RD ASSESSMENT PMHx: afib; HTN; CAD; CHF; HLD; BPH; [place]; DVT PT INTERACTION: Pt was awake and pleasant during dietary consult. Note pt appeared to be confused at times. Pt states current appetite is "good today," and was the same prior to admit. Note avg PO intake 95% x1d, per chart review. Pt states following a regular diet at home, and has some issues with swallowing food. "My pills were catching on the inside of my neck." Pt states no recent issues with nausea, vomiting, or diarrhea. Pt states some issues with constipation, and is pretty sure his last BM was 04/07. Note pt not currently on bowel regimen, per chart review. Pt states some recent wt loss. "On my independent driver's license, it said I was 195#." Pt could not recall the last time he was at that weight. Note weight of 172# on 03/12/19, per chart review. Note recent wt gain of 9# x4mon, per chart review. ABNORMAL NUTRITION-RELATED LAB VALUES LOW: K 3.5; Pro 5.5; alb 3.1 HIGH: Est. kcal needs: 1063-3595 kcal | 30-35 kcal/kg Est. Pro needs: 69-83 g Pro | 1.0-1.2 g Pro/kg PES STATEMENT: Inadequate oral intake (NI-2.1) related to loss of appetite | confusion | constipation as evidenced by pt interview INTERVENTION: Continue with current diet order of Regular diet. Encouraged pt to eat when able. Pt may benefit from swallow evaluation, as pt discussed some of his medications "catching" in his throat. Discussed with pt use of protein powder supplementation upon discharge. Will continue to follow and reassess as pt needs, intake, and status change. MONITOR/EVALUATE: PO Intake; Plan of Care; Hydration Status; Weight Status; Lab Values Juan J Browne, MS, RD, LD
[2020-04-08] MEDS: DOCUSATE SODIUM 100 MG (COLACE) CAP PO SCH ×2 (16:41→17:00)
[2020-04-09] VITALS: BP 121/85
[2020-04-09 03:25] LABS: BASOPHILS % (AUTO) 0 % (0-10); EOSINOPHILS # (AUTO) 0.1 10^3/uL (0.0-0.3); EOSINOPHILS % (AUTO) 1 % (0-10); HEMATOCRIT 40 % (40-54); HEMOGLOBIN 13.7 G/DL (13.3-17.7); LYMPHOCYTES % (AUTO) 26 % (12-44); MEAN CORPUSCULAR HEMOGLOBIN 32 PG (25-34); MEAN CORPUSCULAR HGB CONC 34 G/DL (32-36); MEAN CORPUSCULAR VOLUME 92 FL (80-99); MEAN PLATELET VOLUME 11.9 FL (7.4-10.4); MONOCYTES # (AUTO) 0.7 X 10^3 (0.0-1.0); MONOCYTES % (AUTO) 10 % (0-12); NEUTROPHILS # (AUTO) 4.9 X 10^3 (1.8-7.8); NEUTROPHILS % (AUTO) 64 % (42-75); PLATELET COUNT 90 10^3/uL (130-400); RED CELL DISTRIBUTION WIDTH 15.7 % (10.0-14.5); WHITE BLOOD COUNT 7.6 10^3/uL (4.3-11.0)
[2020-04-09 03:41] LABS: BUN/CREATININE RATIO 15; CALCIUM 8.9 MG/DL (8.5-10.1); CARBON DIOXIDE 22 MMOL/L (21-32); CHLORIDE 104 MMOL/L (98-107); CREATININE SERUM 0.93 MG/DL (0.60-1.30); GFR ESTIMATED > 60; GLUCOSE 104 MG/DL (70-105); MAGNESIUM 1.7 MG/DL (1.6-2.4); PHOSPHORUS 3.5 MG/DL (2.3-4.7); POTASSIUM 3.9 MMOL/L (3.6-5.0); SODIUM 139 MMOL/L (135-145)
[2020-04-09 04:00] VITALS: BP 115/72
--- NOTE | 2020-04-09 05:20 | Pulmonary Progress Note ---
Subjective Time Seen by a Provider: 05:18 Sepsis Event Evaluation Height, Weight, BMI Height: 6'2.00" Weight: 163lbs. 2.0oz. 73.209317jm; 19.23 BMI Method:Stated Exam Exam Vital Signs Date Time Temp Pulse Resp B/P (MAP) Pulse Ox O2 Delivery O2 Flow Rate FiO2 04/09/20 04:00 84 29 115/72 (86) 98 Room Air 04/09/20 03:02 Room Air 04/09/20 03:01 36.2 04/09/20 01:00 115 04/09/20 00:00 98 12 121/85 (97) 97 Room Air 04/08/20 23:16 37.3 04/08/20 23:16 Room Air 04/08/20 22:00 89 16 94/75 (81) 96 Room Air 04/08/20 20:02 96 Room Air 04/08/20 20:00 36.4 04/08/20 20:00 107 30 117/88 (98) 96 Room Air 04/08/20 19:58 Room Air 04/08/20 19:00 93 04/08/20 19:00 93 30 113/80 (91) 95 Room Air 04/08/20 17:00 96 37 107/84 (92) 96 Room Air 04/08/20 16:00 Room Air 04/08/20 16:00 101 11 97/82 (87) 95 Room Air 04/08/20 16:00 36.7 04/08/20 15:00 89 17 116/77 (90) 94 Room Air 04/08/20 14:00 86 38 110/73 (85) 97 Room Air 04/08/20 13:00 89 48 116/74 (88) 96 Room Air 04/08/20 12:43 93 04/08/20 12:41 04/08/20 12:03 36.4 04/08/20 12:00 Room Air 04/08/20 12:00 130 38 100/83 (89) 90 Room Air 04/08/20 11:00 91 0 108/83 (91) 96 Room Air 04/08/20 10:00 117 18 102/93 (96) 97 Room Air 04/08/20 09:00 96 Room Air 04/08/20 09:00 114 36 100/85 (90) 97 Room Air 04/08/20 08:00 95 31 110/84 (93) 99 Room Air 04/08/20 08:00 Room Air 04/08/20 07:57 36.0 04/08/20 07:00 97 34 90/73 (79) 99 Room Air 04/08/20 06:59 127 04/08/20 06:00 106 27 115/86 (96) 97 Room Air I & O 04/09/20 07:00 Intake Total 750 ml Output Total 1125 ml Balance -375 ml Height & Weight Height: 6'2.00" Weight: 163lbs. 2.0oz. 73.963090dw; 19.23 BMI Method:Stated General Appearance: No Apparent Distress, Chronically ill, Thin HEENT: PERRL/EOMI, Moist Mucous Membranes; No Scleral Icterus (L), No Scleral Icterus (R) Neck: Normal Inspection, Supple Respiratory: Lungs Clear, No Respiratory Distress Cardiovascular: Irregularly Irregular, Tachycardia Capillary Refill: Less Than 3 Seconds Extremity: No Calf Tenderness, No Pedal Edema Neurologic/Psychiatric: Alert, Oriented x3 Skin: Normal Color, Warm/Dry Results Lab Laboratory Tests 04/08/20 02:32 04/09/20 02:30 Assessment/Plan Assessment/Plan Afib RVR -Cardizem PO -Cardiology consulted SOB with with bilateral right > Left pleural effusions -SL IVF -Echo 15-20 % -Check BNP -Eliquis CAD Dementia CHIDI HESS DO April 09, 2020 05:20
[2020-04-09 07:00] VITALS: BP 124/82
--- NOTE | 2020-04-09 07:23 | Diagnostic Imaging Report ---
CHEST 1 VIEW, AP/PA ONLY Indication: Pleural effusion Comparison: 04/08/2020 Findings: Small bilateral pleural effusions are unchanged. Right basilar subsegmental atelectasis is similar. No pneumothorax. Assessment of lung apices is limited due to summation shadow of patient's head and neck. Stable marked cardiomegaly. Impression: 1. No change in small bilateral pleural effusions. Dictated by: Dictated on workstation # [id number]
--- NOTE | 2020-04-09 07:56 | Discharge Summary ---
Diagnosis/Chief Complaint Date of Admission April 08, 2020 at 08:26 Date of Discharge Discharge Date: April 08, 2020 Admission Diagnosis A-fib with RVR Primary Care Jessi Matthews MD Discharge Summary Procedures/Consulations Dr Winters- Cardiology Discharge Physical Exam Allergies: Coded Allergies: Eajvlpj-Faf-Wsi Reductase Inhibitor (Unverified Allergy, Unknown, 03/12/19) codeine (Unverified Adverse Reaction, Mild, Altered taste, 02/13/15) Uncoded Allergies: beta blockers (Adverse Reaction, Severe, severe bradycardia, 04/07/20) Vitals & I&Os Vital Signs Date Time Temp Pulse Resp B/P (MAP) Pulse Ox O2 Delivery O2 Flow Rate FiO2 04/09/20 08:50 94 Room Air 04/09/20 07:49 36.4 04/09/20 07:00 83 124/82 (96) 04/09/20 04:00 29 General Appearance: No Apparent Distress, Chronically ill, Thin Cardiovascular: Tachycardia Neurologic/Psychiatric: Alert, Oriented x3 Hospital Course Pt was admitted due to a fib with RVR. He was started on a increased dose of his home cardizem as he does not tolerate beta blockers. Digoxin was added as well with improved rate control. He otherwise had an uneventful hospital course and is to follow up with Dr Winters. He was discharged home at his request in stable condition. Labs (last 24 hrs) Patient resulted labs reviewed. Pending Labs Imaging: Reviewed Imaging Report Discussion & Recommendations Discharge Planning: >30 minutes discharge planning Discharge Home Medications: Active Scripts Active Digoxin 250 Mcg Tablet 250 Mcg PO DAILY Potassium Chloride 20 Meq Tablet.er 20 Meq PO DAILY Cardizem Cd (Diltiazem HCl) 120 Mg Cap.er.24h 120 Mg PO DAILY Two capsules in the morning and one capsule in the evening Lasix (Furosemide) 80 Mg Tablet 80 Mg PO DAILY Spironolactone 25 Mg Tablet 25 Mg PO DAILY Reported Stool Softener (Docusate Sodium) 100 Mg Capsule 200 Mg PO 1200 Centravites 50 Plus Tablet (Multivit-Min/FA/Lycopen/Lutein) 1 Each Tablet 1 Each PO 1200 Aspirin EC (Aspirin) 81 Mg Tablet. 81 Mg PO 1200 Eliquis (Apixaban) 5 Mg Tablet 5 Mg PO BID Instructions to patient/family Please see electronic discharge instructions given to patient. Clinical Quality Measures DVT/VTE Risk/Contraindication: Risk Factor Score Per Nursin RFS Level Per Nursing on Admit: 2=Moderate ION CONCEPCION MD April 09, 2020 07:56
[2020-04-09] MEDS: FUROSEMIDE 40 MG/4 ML INJ (LASIX) IVP SCH (08:27)
[2020-04-09] MEDS: APIXABAN 5 MG (ELIQUIS) TABLET PO SCH (08:28)
--- NOTE | 2020-04-09 08:49 | Progress Note - Cardiology ---
Cardiology SOAP Progress Note Subjective: No cp or palp or syncope Shortness of breath resolved Some gen weakness, better than at time of admission No focal weakness No n/v/d Wishes to go home Wishes to be managed conservatively only Objective: I&O/Vital Signs 04/08/20 04/08/20 04/08/20 04/09/20 22:00 23:16 23:16 00:00 Temp 37.3 Pulse 89 98 Resp 16 12 B/P (MAP) 94/75 (81) 121/85 (97) Pulse Ox 96 97 O2 Delivery Room Air Room Air Room Air 04/09/20 04/09/20 04/09/20 04/09/20 01:00 03:01 03:02 04:00 Temp 36.2 Pulse 115 84 Resp 29 B/P (MAP) 115/72 (86) Pulse Ox 98 O2 Delivery Room Air Room Air 04/09/20 04/09/20 04/09/20 06:31 07:00 07:49 Temp 36.4 Pulse 91 83 B/P (MAP) 124/82 (96) Pulse Ox 97 O2 Delivery Room Air 04/09/20 00:00 Intake Total 650 ml Output Total 1125 ml Balance -475 ml Weight (Pounds): 163 Weight (Ounces): 2.0 Weight (Calculated Kilograms): 73.010936 Constitutional: AAO x 3, well-developed, well-nourished Respiratory: No accessory muscle use, No respiratory distress; chest expansion is symmetric, chest is bilaterally symmetric, other (good air entry) Cardiovascular: irregularly irregular, S1 and S2, systolic murmur (soft ELIE at card base) Gastrointestional: No tender; soft, round, audible bowel sounds Extremities: no lower extremity edema bilateral Neurologic/Psychiatric: grossly intact (moves all extremities) Skin: No rash on exposed areas, No ulcerations on exposed areas Results/Procedures: Labs Laboratory Tests 04/09/20 02:30: White Blood Count 7.6, Red Blood Count 4.33L, Hemoglobin 13.7, Hematocrit 40, Mean Corpuscular Volume 92, Mean Corpuscular Hemoglobin 32, Mean Corpuscular Hemoglobin Concent 34, Red Cell Distribution Width 15.7H, Platelet Count 90L, Mean Platelet Volume 11.9H, Neutrophils (%) (Auto) 64, Lymphocytes (%) (Auto) 26, Monocytes (%) (Auto) 10, Eosinophils (%) (Auto) 1, Basophils (%) (Auto) 0, Neutrophils # (Auto) 4.9, Lymphocytes # (Auto) 2.0, Monocytes # (Auto) 0.7, Eosinophils # (Auto) 0.1, Basophils # (Auto) 0.0, Sodium Level 139, Potassium Level 3.9, Chloride Level 104, Carbon Dioxide Level 22, Anion Gap 13, Blood Urea Nitrogen 14, Creatinine 0.93, Estimat Glomerular Filtration Rate > 60, BUN/Creatinine Ratio 15, Glucose Level 104, Calcium Level 8.9, Phosphorus Level 3.5, Magnesium Level 1.7 A/P: Assessment: A Fib with RVR. 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 Last cath was on 05/20/14. It showed diffuse disease consisting of up to 50% stenoses in all cors. FFR across multiple mid-vessel LAD lesions was 0.92, indicating hemodynamic insignificance. There was a patent stent in mid LAD and in distal RCA. Distal RCA stent is known to be [id number] [id number] placed in Aug 2012. LVEF on cath of May 2014 was 45% and LVEDP was mildly elevated Hyperlipidemia, but the patient is intolerant to statins. Postural hypotension, resolved following cessation of therapy with RYAN inhibitors and Terazosin. Multiple medication intolerances. See below. Intolerance to beta-blockers on account of symptomatic bradycardia and hypotension. Intolerance to RYAN inhibitors on account of postural hypotension Intolerance to ARBs on account of dizziness. Intolerance to warfarin due to nonspecific symptoms and fear of side effects - currently on apixaban Mild carotid arterial disease (less than 40%) per carotid ultrasonography of May 2016. Chronic moderate vertigo. Chronic low back pain, s/p low low back kyphoplasty, but back pain has persisted Plan: * Complex management * Advised repeat cath to eval for a cor basis for deterioration of EF. He has not agreed to that or any invasive procedure. Wishes to be managed conservatively and empirically only * Diuretics and K added to regimen. Dig added to regimen. Close outpt f/u advised (clinical f/u and f/u on labs) * I discussed his CV issues with him in detail * Discussed his case with Dr Andersen again this am UZIEL SHEEHAN MD FACP FAC CCDS April 09, 2020 08:49
[2020-04-09] MEDS: SPIRONOLACTONE 25 MG (ALDACTONE) TAB PO SCH (09:39)
== END 2020-04-09 08:50 | disposition home or self-care (01) | DRG 280 ==
LOC: EDUNIT# 17:29 → ER 17:37 → ICU 19:06 → OBSVTOIN 04-08 08:26
PROVIDERS: ADMIT Family Medicine; ATTEND Family Medicine
DX: I48.0 Paroxysmal atrial fibrillation (principal); I48.92 Unspecified atrial flutter; I21.A1 Myocardial infarction type 2; I11.0 Hypertensive heart disease with heart failure; I50.23 Acute on chronic systolic (congestive) heart failure; J90 Pleural effusion, not elsewhere classified; I42.0 Dilated cardiomyopathy; I25.10 Atherosclerotic heart disease of native coronary artery without angina pectoris; E78.5 Hyperlipidemia, unspecified; N40.0 Benign prostatic hyperplasia without lower urinary tract symptoms; M54.9 Dorsalgia, unspecified; F41.9 Anxiety disorder, unspecified; F03.90 Unspecified dementia, unspecified severity, without behavioral disturbance, psychotic disturbance, mood disturbance, and anxiety; F45.9 Somatoform disorder, unspecified; I08.0 Rheumatic disorders of both mitral and aortic valves; I95.1 Orthostatic hypotension; E87.6 Hypokalemia; Z87.891 Personal history of nicotine dependence; Z95.5 Presence of coronary angioplasty implant and graft; Z86.718 Personal history of other venous thrombosis and embolism; I25.2 Old myocardial infarction
CPT/HCPCS: 36415; 71045; 80048; 80053; 83735; 83874; 83880; 84100; 84443; 84484; 85025; 85379; 85610; 85730; 86141; 93041; 93306

== ENCOUNTER → 2020-08-20 | Outpatient (CLI) | payer MEDICARE, OTHER ==
[~2020-08-20] MED LIST changes: +ASPI-1238 PO; -ASPI-983 PO; +CLOT15CR28 TP; -CLOT15CR5 TP; +DIGO250T3 PO; +DILT-27 PO; +FURO80TA83 PO; +MULT-1065 PO; +POTA-51 PO; +SPIR25TA5 PO
== END ==
LOC: CARD 09:10
PROVIDERS: ATTEND Nurse Practitioner Family
DX: I48.0 Paroxysmal atrial fibrillation (principal)
CPT/HCPCS: 93225; 93226

== ENCOUNTER 2020-11-18 10:04 | Inpatient (IN) | payer MEDICARE, OTHER ==
[2020-11-18] VITALS (8 sets, daily range): BP systolic 116–133; BP diastolic 73–98
[~2020-11-18] VITALS: Ht 188 cm; Wt 66.9 kg
--- NOTE | 2020-11-18 10:27 | ED Fall/Injury ---
General Chief Complaint: Trauma-Non Activation Stated Complaint: FALL Source: patient, EMS Exam Limitations: no limitations History of Present Illness Date Seen by Provider: Nov 18, 2020 Time Seen by Provider: 09:55 Initial Comments The patient presents to the ER by EMS from home with chief complaint that he had a fall approximately 2 hours prior to EMS arrival. He says it took him and his the 2 hours to get back up. He was walking to go to the bathroom after having already taken his medications and ate breakfast. He says he lost his balance and fell backwards onto his left ribs and hip. He is having most of his pain in his left ribs. He had some shortness of air until they gave him some fentanyl 25 mcg which he said took away his pain and his shortness of air. He can recreate his symptoms by deep inspiration. He has had no cough fever chills nausea vomiting diarrhea. No loss of consciousness nor did he strike his head. He is on Eliquis and Cardizem for atrial fibrillation. He has had fractured ribs before but no fractured hips. He says he has full range of motion and sen sation in all 4 extremities. Allergies and Home Medications Allergies Coded Allergies: Hwlcufj-Rbs-Ere Reductase Inhibitor (Unverified Allergy, Unknown, 03/12/19) codeine (Unverified Adverse Reaction, Mild, Altered taste, 02/13/15) Uncoded Allergies: beta blockers (Adverse Reaction, Severe, severe bradycardia, 04/07/20) Home Medications Apixaban 5 Mg Tablet, 5 MG PO BID, (Reported) Aspirin 81 Mg Tablet.dr, 81 MG PO 1200, (Reported) Digoxin 250 Mcg Tablet, 250 MCG PO DAILY Prescribed by: CAITLYN SANTILLAN on 04/08/20820 Diltiazem HCl 120 Mg Cap.er.24h, 120 MG PO DAILY Two capsules in the morning and one capsule in the evening Prescribed by: CAITLYN SANTILLAN on 04/08/20820 Docusate Sodium 100 Mg Capsule, 200 MG PO 1200, (Reported) Furosemide 80 Mg Tablet, 80 MG PO DAILY Prescribed by: CAITLYN SANTILLAN on 04/08/20820 Multivit-Min/FA/Lycopen/Lutein 1 Each Tablet, 1 EACH PO 1200, (Reported) Potassium Chloride 20 Meq Tablet.er, 20 MEQ PO DAILY Prescribed by: CAITLYN SANTILLAN on 04/08/20820 Spironolactone 25 Mg Tablet, 25 MG PO DAILY Prescribed by: CAITLYN SANTILLAN on 04/08/20820 Patient Home Medication List Home Medication List Reviewed: Yes Review of Systems Review of Systems Constitutional: No chills, No diaphoresis Eyes: Denies Blindness, Denies Blurred Vision Ears, Nose, Mouth, Throat: denies ear pain, denies ear discharge Respiratory: see HPI; No cough, No short of breath Cardiovascular: No edema, No Hx of Intervention Gastrointestinal: No abdominal pain, No nausea, No vomiting Genitourinary: No discharge, No dysuria Musculoskeletal: see HPI; No back pain; joint pain All Other Systems Reviewed Negative Unless Noted: Yes Past Ayijzgw-Fjivkb-Rwggbe Hx Patient Social History Alcohol Use: Past History Alcohol Beverage of Choice: Whiskey Recreational Drug Use: No Smoking Status: Former Smoker Type Used: Cigarettes Former Smoker, Quit: Dec 11, 1977 Recent Hopitalizations: No Physical Abuse: No Sexual Abuse: No Mistreated: No Fear: No Immunizations Up To Date Tetanus Booster (TDap): Unknown PED Vaccines UTD: No Date of Pneumonia Vaccine: Aug 20, 2012 Date of Influenza Vaccine: Aug 20, 2019 Seasonal Allergies Seasonal Allergies: No Past Medical History Surgeries: Yes (Cardiac stent x 2) Coronary Stent, Orthopedic Respiratory: No Cardiac: Yes (Cardiac stent X2 ) Atrial Fibrillation, Deep Vein Thrombosis, Heart Attack, High Cholesterol, Hypertension Neurological: Yes Vertigo Reproductive Disorders: No Genitourinary: Yes Benign Prostatic Hyperpl Gastrointestinal: No Polyps Musculoskeletal: Yes (FX L WRIST) Chronic Back Pain Endocrine: No HEENT: No Cancer: No Psychosocial: Yes Anxiety Integumentary: No Blood Disorders: No Adverse Reaction/Blood Tranf: No Family Medical History Patient reports no known family medical history. No Pertinent Family Hx Physical Exam Vital Signs Vital Signs - First Documented Capillary Refill : Height, Weight, BMI Height: 6'2.00" Weight: 163lbs. 2.0oz. 73.769817ve; 19.23 BMI Method:Stated General Appearance: WD/WN, mild distress HEENT: PERRL/EOMI, pharynx normal Neck: full range of motion, normal inspection Cardiovascular: normal peripheral pulses, regular rate, rhythm Respiratory: lungs clear, normal breath sounds, no respiratory distress, no accessory muscle use, other (Left chest wall tender to palpation without ecchymoses or significant deformity.) Peripheral Pulses: 2+ Radial Pulses (R), 2+ Radial Pulses (L) Gastrointestinal: normal bowel sounds, non tender, soft Neurologic/Psychiatric: alert, normal mood/affect, oriented x 3 Skin: normal color, warm/dry Olya Coma Score Best Eye Response: (4) Open Spontaneously Best Verbal Response: (5) Oriented Best Motor Response: (6) Obeys Commands [place] Total: 15 Progress/Results/Core Measures Results/Orders Lab Results Laboratory Tests Test 11/18/20 10:05 11/18/20 12:10 Range/Units White Blood Count 7.6 4.3-11.0 10^3/uL Red Blood Count 3.99 L 4.30-5.52 10^6/uL Hemoglobin 13.0 L 13.3-17.7 g/dL Hematocrit 38 L 40-54 % Mean Corpuscular Volume 96 80-99 fL Mean Corpuscular Hemoglobin 33 25-34 pg Mean Corpuscular Hemoglobin Concent 34 32-36 g/dL Red Cell Distribution Width 14.6 H 10.0-14.5 % Platelet Count 75 L 130-400 10^3/uL Mean Platelet Volume 10.9 9.0-12.2 fL Immature Granulocyte % (Auto) 1 % Neutrophils (%) (Auto) 81 H 42-75 % Lymphocytes (%) (Auto) 13 12-44 % Monocytes (%) (Auto) 6 0-12 % Eosinophils (%) (Auto) 0 0-10 % Basophils (%) (Auto) 0 0-10 % Neutrophils # (Auto) 6.2 1.8-7.8 10^3/uL Lymphocytes # (Auto) 1.0 1.0-4.0 10^3/uL Monocytes # (Auto) 0.4 0.0-1.0 10^3/uL Eosinophils # (Auto) 0.0 0.0-0.3 10^3/uL Basophils # (Auto) 0.0 0.0-0.1 10^3/uL Immature Granulocyte # (Auto) 0.1 0.0-0.1 10^3/uL Sodium Level 140 135-145 MMOL/L Potassium Level 3.7 3.6-5.0 MMOL/L Chloride Level 108 H 98-107 MMOL/L Carbon Dioxide Level 22 21-32 MMOL/L Anion Gap 10 5-14 MMOL/L Blood Urea Nitrogen 14 7-18 MG/DL Creatinine 0.81 0.60-1.30 MG/DL Estimat Glomerular Filtration Rate > 60 BUN/Creatinine Ratio 17 Glucose Level 127 H 70-105 MG/DL Calcium Level 9.3 8.5-10.1 MG/DL Corrected Calcium 9.5 8.5-10.1 MG/DL Total Bilirubin 1.0 0.1-1.0 MG/DL Aspartate Amino Transf (AST/SGOT) 28 5-34 U/L Alanine Aminotransferase (ALT/SGPT) 25 0-55 U/L Alkaline Phosphatase 54 40-136 U/L Total Protein 6.7 6.4-8.2 GM/DL Albumin 3.8 3.2-4.5 GM/DL Urine Color YELLOW Urine Clarity CLEAR Urine pH 5.5 5-9 Urine Specific [place] 1.025 H 1.016-1.022 Urine Protein NEGATIVE NEGATIVE Urine Glucose (UA) NEGATIVE NEGATIVE Urine Ketones TRACE H NEGATIVE Urine Nitrite NEGATIVE NEGATIVE Urine Bilirubin NEGATIVE NEGATIVE Urine Urobilinogen 0.2 < = 1.0 MG/DL Urine Leukocyte Esterase NEGATIVE NEGATIVE Urine RBC (Auto) NEGATIVE NEGATIVE Urine RBC RARE /HPF Urine WBC 2-5 /HPF Urine Squamous Epithelial Cells 2-5 /HPF Urine Crystals PRESENT H /LPF Urine Calcium Oxalate Crystals RARE H /LPF Urine Amorphous Sediment FEW STEVEN URATES H /LPF Urine Bacteria TRACE /HPF Urine Casts PRESENT /LPF Urine Hyaline Casts RARE /LPF Urine Mucus SMALL H /LPF Urine Culture Indicated NO My Orders Orders - JAY RAMIREZ Cbc With Automated Diff (11/18/20 10:18) Comprehensive Metabolic Panel (11/18/20 10:18) Ua Culture If Indicated (11/18/20 10:18) Continuous Ekg Monitoring (11/18/20 10:18) Ekg Tracing (11/18/20 10:18) Ct Head/Cervical Spine Wo (11/18/20 10:18) Knee, Left, 3 Views (11/18/20 10:18) Hip, Left, 2 Views (11/18/20 10:18) Ribs/Unilateral With Chest (11/18/20 10:18) Fentanyl Injection (Sublimaze Injection (11/18/20 10:30) Ed Iv/Invasive Line Start (11/18/20 10:18) Ns Iv 500 Ml (Sodium Chloride 0.9%) (11/18/20 10:30) Hydrocodone/Apap 5/325 Tablet (Lortab 5 (11/18/20 12:00) Morphine Injection (Morphine Injection (11/18/20 12:25) Catheter(Urinary) Insert & Ass 03,15 (11/18/20 12:25) Fentanyl Injection (Sublimaze Injection (11/18/20 13:30) Medications Given in ED Current Medications Medications Dose Ordered Sig/Adelfo Route Start Time Stop Time Status Last Admin Dose Admin Acetaminophen/ Hydrocodone Bitart 1 tab ONCE ONCE PO 11/18/20 12:00 11/18/20 12:01 DC 11/18/20 12:12 1 TAB Fentanyl Citrate 25 mcg ONCE ONCE IVP 11/18/20 10:30 11/18/20 10:31 DC 11/18/20 10:36 25 MCG Fentanyl Citrate 50 mcg ONCE ONCE IVP 11/18/20 13:30 11/18/20 13:31 DC 11/18/20 13:31 50 MCG Sodium Chloride 500 ml @ 0 mls/hr Q0M ONCE IV 11/18/20 10:30 11/18/20 10:31 DC 11/18/20 10:47 499 MLS/HR Vital Signs/I&O 11/18/20 11/18/20 11/18/20 10:04 10:04 12:39 Temp 35.1 35.1 Pulse 94 95 Resp 20 20 B/P (MAP) 136/96 (109) 136/96 (109) Pulse Ox 95 96 96 O2 Delivery Room Air Room Air Room Air Progress Progress Note : Time: 10:[address] of the head and C-spine, left rib 2-3 views, left hip and left knee x-rays. 25 mcg fentanyl now for a total of 75 mcg fentanyl. 500 cc of fluid. No evidence of a tension pneumothorax. Suspect multiple rib fractures. He is not having increased work of breathing and his oxygen saturation is 96% on room air. His heart rate is fairly rate controlled around 100 with atrial fibrillation. Initial ECG Impression Date: Nov 18, 2020 Initial ECG Impression Time: 10:46 Initial ECG Rate: 103 Initial ECG Rhythm: A Fib/Flutter Initial ECG Intervals: QT (504) Initial ECG Impression: Atrial Fibrillation Comment Atrial fibrillation without rapid ventricular response. Right bundle branch block. 1-1 and a 1/[address] depression in the anterior lateral leads V3 through V6. Similar half block depression seen on previous EKGs. Diagnostic Imaging Diagonstic Imaging: CT Plain Films/CT/US/NM/MRI: c-spine, head Comments NAME: TAJ ELKINS [facility] REC#: [id number] PT STATUS: REG ER : 1935 PHYSICIAN: JAY RAMIREZ MD ADMIT DATE: 11/18/20/ER Draft Date of Exam:11/18/20 CT HEAD/CERVICAL SPINE WO PROCEDURE: CT head and CT cervical spine without contrast. TECHNIQUE: Multiple contiguous axial images were obtained through the brain and cervical spine without the use of intravenous contrast. Sagittal and coronal reformations through the cervical spine were then performed. Auto Exposure Controls were utilized during the CT exam to meet ALARA standards for radiation dose reduction. INDICATION: Fall with head and neck pain. No prior studies are available for comparison. CT HEAD: CT head is somewhat limited due to difficulty with patient positioning and severe kyphosis. Due to this the most anterior aspect of the brain including the frontal lobes is not included on the exam. The visualized brain demonstrates some prominence of ventricles and sulci consistent with age-related atrophy. No sulcal effacement or midline shift is identified. No acute intra-axial or extra-axial hemorrhage is detected. There is moderate periventricular hypodensity noted consistent with senescent change. Cisterns are patent. Visualized paranasal sinuses are clear. IMPRESSION: Limited study but no acute intracranial process is detected. CT cervical spine: A curvature of the cervical spine is normal. There is generalized degenerative disc disease with variable disc space narrowing and marginal spurring. No fractures are seen. Prevertebral tissues are within normal limits. Odontoid is intact. There is multilevel degenerative facet disease. IMPRESSION: Cervical spondylosis. No acute bony abnormality is detected. Dictated on workstation # [id number] Dict: 11/18/20 1139 Trans: 11/18/20 1153 [id number] Interpreted by: YOLA JONES MD Electronically signed by: Reviewed: Reviewed by Me Diagonstic Imaging: Xray Plain Films/CT/US/NM/MRI: other (Ribs left) Comments NAME: TAJ ELKINS [facility] REC#: [id number] PT STATUS: REG ER : 1935 PHYSICIAN: JAY RAMIREZ MD ADMIT DATE: 11/18/20/ER Draft Date of Exam:11/18/20 RIBS/UNILATERAL WITH CHEST INDICATION: Fall with left-sided rib pain. TIME OF EXAM: 11:36 AM FINDINGS: Multiple views of the chest and left ribs were obtained. There is some pleural calcified plaquing in the left upper chest. No definite displaced rib fracture is identified. No parenchymal contusion, effusion or pneumothorax is identified. Kyphoplasty changes in the thoracic spine and upper lumbar spine are noted. IMPRESSION: No definite displaced rib fracture is detected. Dictated on workstation # [id number] Dict: 11/18/20 1208 Trans: 11/18/20 1218 [id number] Interpreted by: YOLA JONES MD Electronically signed by: Reviewed: Reviewed by Me Diagonstic Imaging: Xray Plain Films/CT/US/NM/MRI: hip (Left) Comments NAME: TAJ ELKINS [facility] REC#: [id number] PT STATUS: REG ER : 1935 PHYSICIAN: JAY RAMIREZ MD ADMIT DATE: 11/18/20/ER Draft Date of Exam:11/18/20 HIP, LEFT, 2 VIEWS INDICATION: Fall with left hip pain. TIME OF EXAM: 11:40 a.m. TECHNIQUE: Two views of the left hip were obtained. FINDINGS: There appears to be a subcapital hip fracture. Femoroacetabular alignment is maintained. Left-sided rami appear to be intact. No other fractures are identified. IMPRESSION: Findings suggestive of subcapital left hip fracture. Dictated on workstation # [id number] Dict: 11/18/20 1206 Trans: 11/18/20 1210 [facility] [id number] Interpreted by: YOLA JONES MD Electronically signed by: Reviewed: Reviewed by Ia Diagonstic Imaging: Xray Plain Films/CT/US/NM/MRI: knee Comments [facility] [place] NAME: TAJ ELKINS [facility] REC#: [id number] PT STATUS: REG ER : 1935 PHYSICIAN: JAY RAMIREZ MD ADMIT DATE: 11/18/20/ER Draft Date of Exam:11/18/20 KNEE, LEFT, 3 VIEWS INDICATION: Left knee pain. Time of exam 11:41 AM 3 views of the left knee were obtained. There is generalized demineralization. There is tricompartmental degenerative change with joint space narrowing and marginal spurring. There is chondrocalcinosis of the medial and lateral compartments. Benign calcification suprapatellar location are noted. There is no fracture, dislocation or effusion. IMPRESSION: Degenerative changes. No acute bony abnormality is detected. 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 Ortho consult is appropriate. Departure Communication (Admissions) Time/Spoke to Admitting Phy: 12:40 Discussed the case with Dr. Puente and she agrees to accept the patient for pain management. Time/Spoke to Consulting Phy: 12:29 Dr. Petit agrees to consult on the case and discussed the hip fracture. Impression Primary Impression: Fall Qualified Codes: W19.XXXA - Unspecified fall, initial encounter Additional Impressions: Closed left hip fracture Qualified Codes: S72.002A - Fracture of unspecified part of neck of left femur, initial encounter for closed fracture Traumatic ecchymosis of rib Qualified Codes: S20.20XA - Contusion of thorax, unspecified, initial encounter Disposition: ADMITTED INPATIENT Condition: Stable Admissions Decision to Admit Reason: Admit from ER (General) Decision to Admit/Date: Nov 18, 2020 Time/Decision to Admit Time: 12:15 Departure-Patient Inst. Referrals: RUBY PAYTON MD (PCP/Family) Primary Care Physician JAY RAMIREZ Nov 18, 2020 10:27
[2020-11-18 10:30] LABS: BASOPHILS % (AUTO) 0 % (0-10); EOSINOPHILS % (AUTO) 0 % (0-10); HEMATOCRIT 38 % (40-54); LYMPHOCYTES % (AUTO) 13 % (12-44); MEAN CORPUSCULAR HEMOGLOBIN 33 pg (25-34); MEAN CORPUSCULAR HGB CONC 34 g/dL (32-36); MEAN CORPUSCULAR VOLUME 96 fL (80-99); MEAN PLATELET VOLUME 10.9 fL (9.0-12.2); MONOCYTES # (AUTO) 0.4 10^3/uL (0.0-1.0); MONOCYTES % (AUTO) 6 % (0-12); NEUTROPHILS # (AUTO) 6.2 10^3/uL (1.8-7.8); NEUTROPHILS % (AUTO) 81 % (42-75); PLATELET COUNT 75 10^3/uL (130-400); WHITE BLOOD COUNT 7.6 10^3/uL (4.3-11.0)
[2020-11-18] MEDS ORDERED: fentaNYL INJECTION 100 MCG/2 ML AMP IVP ONE ×4 (10:30→16:00)
[2020-11-18] MEDS ORDERED: NS IV 500 ML 500 ML IV ONE (10:30)
[2020-11-18 10:40] LABS: ALBUMIN 3.8 GM/DL (3.2-4.5); CHLORIDE 108 MMOL/L (98-107); POTASSIUM 3.7 MMOL/L (3.6-5.0); SODIUM 140 MMOL/L (135-145)
[2020-11-18 10:41] LABS: CALCIUM 9.3 MG/DL (8.5-10.1)
[2020-11-18 10:42] LABS: GLUCOSE 127 MG/DL (70-105)
[2020-11-18 10:43] LABS: TOTAL PROTEIN 6.7 GM/DL (6.4-8.2)
[2020-11-18 10:44] LABS: CARBON DIOXIDE 22 MMOL/L (21-32)
[2020-11-18 10:46] LABS: ALKALINE PHOSPHATASE 54 U/L (40-136); CREATININE SERUM 0.81 MG/DL (0.60-1.30); GFR ESTIMATED > 60
[2020-11-18 10:47] LABS: BUN/CREATININE RATIO 17
[2020-11-18 10:49] LABS: ALANINE AMINOTRANSFERASE 25 U/L (0-55)
--- NOTE | 2020-11-18 11:54 | Diagnostic Imaging Report ---
PROCEDURE: CT head and CT cervical spine without contrast. TECHNIQUE: Multiple contiguous axial images were obtained through the brain and cervical spine without the use of intravenous contrast. Sagittal and coronal reformations through the cervical spine were then performed. Auto Exposure Controls were utilized during the CT exam to meet ALARA standards for radiation dose reduction. INDICATION: Fall with head and neck pain. No prior studies are available for comparison. CT HEAD: CT head is somewhat limited due to difficulty with patient positioning and severe kyphosis. Due to this the most anterior aspect of the brain including the frontal lobes is not included on the exam. The visualized brain demonstrates some prominence of ventricles and sulci consistent with age-related atrophy. No sulcal effacement or midline shift is identified. No acute intra-axial or extra-axial hemorrhage is detected. There is moderate periventricular hypodensity noted consistent with senescent change. Cisterns are patent. Visualized paranasal sinuses are clear. IMPRESSION: Limited study but no acute intracranial process is detected. CT cervical spine: A curvature of the cervical spine is normal. There is generalized degenerative disc disease with variable disc space narrowing and marginal spurring. No fractures are seen. Prevertebral tissues are within normal limits. Odontoid is intact. There is multilevel degenerative facet disease. IMPRESSION: Cervical spondylosis. No acute bony abnormality is detected. Dictated by: Dictated on workstation # [id number]
[2020-11-18] MEDS ORDERED: HYDROcodone/APAP 5 MG/325 MG (LORTAB) TAB PO ONE (12:00)
--- NOTE | 2020-11-18 12:10 | Diagnostic Imaging Report ---
INDICATION: Fall with left hip pain. TIME OF EXAM: 11:40 a.m. TECHNIQUE: Two views of the left hip were obtained. FINDINGS: There appears to be a subcapital hip fracture. Femoroacetabular alignment is maintained. Left-sided rami appear to be intact. No other fractures are identified. IMPRESSION: Findings suggestive of subcapital left hip fracture. Dictated by: Dictated on workstation # [id number]
--- NOTE | 2020-11-18 12:18 | Diagnostic Imaging Report ---
INDICATION: Fall with left-sided rib pain. TIME OF EXAM: 11:36 AM FINDINGS: Multiple views of the chest and left ribs were obtained. There is some pleural calcified plaquing in the left upper chest. No definite displaced rib fracture is identified. No parenchymal contusion, effusion or pneumothorax is identified. Kyphoplasty changes in the thoracic spine and upper lumbar spine are noted. IMPRESSION: No definite displaced rib fracture is detected. Dictated by: Dictated on workstation # [id number]
[2020-11-18 12:25] LABS: BILIRUBIN,URINE NEGATIVE (NEGATIVE); CLARITY,URINE CLEAR; COLOR,URINE YELLOW; GLUCOSE, URINE (UA) NEGATIVE (NEGATIVE); KETONES,URINE TRACE (NEGATIVE); LEUKOCYTE ESTERASE ,URINE NEGATIVE (NEGATIVE); NITRITE,URINE NEGATIVE (NEGATIVE); PH,URINE 5.5 (5-9); PROTEIN,URINE NEGATIVE (NEGATIVE)
[2020-11-18] MEDS ORDERED: morphine INJ 10 MG/ML 1ML (SYR OR VIAL) IVP STA (12:25)
[2020-11-18 12:33] LABS: BACTERIA,URINE TRACE /HPF; RBC,URINE RARE /HPF
[2020-11-18 12:34] LABS: AMORPHOUS SEDIMENT,UR FEW AMOR URATES /LPF; CALCIUM OXALATE CRYSTALS,UR RARE /LPF; HYALINE CASTS, URINE RARE /LPF
--- NOTE | 2020-11-18 12:46 | Diagnostic Imaging Report ---
INDICATION: Left knee pain. Time of exam 11:41 AM 3 views of the left knee were obtained. There is generalized demineralization. There is tricompartmental degenerative change with joint space narrowing and marginal spurring. There is chondrocalcinosis of the medial and lateral compartments. Benign calcification suprapatellar location are noted. There is no fracture, dislocation or effusion. IMPRESSION: Degenerative changes. No acute bony abnormality is detected. Dictated by: Dictated on workstation # [id number]
--- NOTE | 2020-11-18 13:39 | Consultation - Ortho ---
Consult - Ortho Subjective Date of Exam 11/18/20 Chief Complaint Left hip fracture after fall at home HPI/Events since last exam Mr. Prince is an 85-year-old white male who fell at home earlier this morning when he got lightheaded going to the bathroom. After his fall he was unable to get up despite help from his . He noted pain in his left ribs and left hip. He also has chronic neck and back pain and has had previous back surgery. He states the neck and back pain isn't unchanged prior to his fall. He's had problems with his right knee and sees Dr. Everett Alvarez in [place]. He's had aspiration and injections multiple times. None in the left knee. He has ambulated with a walker in the past for his right knee. He denies any hip problems. X-rays in the emergency room did show an impacted subcapital fracture of the left hip. Arthritic changes were noted of the left knee. No rib fractures were noted. He does take Eloquis for A. fib. He did take a dose this morning. Medical, Surgical History Reviewed and no additions or changes. Orthopedic leas had back surgery. No surgery on either knee or hips Social History Reviewed and no additions or changes. He lives at home with his Family History Reviewed and no additions or changes Review of Systems Reviewed and no additions or changes Allergies: Coded Allergies: Ygbykdw-Ajc-Svl Reductase Inhibitor (Unverified Allergy, Unknown, 03/12/19) codeine (Unverified Adverse Reaction, Mild, Altered taste, 02/13/15) Uncoded Allergies: beta blockers (Adverse Reaction, Severe, severe bradycardia, 04/07/20) Home Meds Active Scripts Digoxin (Digoxin) 250 Mcg Tablet, 250 MCG PO DAILY, #30 TAB 3 Refills Prov:CAITLYN SANTILLAN [employer] 20/20 Potassium Chloride (Potassium Chloride) 20 Meq Tablet.er, 20 MEQ PO DAILY, #30 TAB 3 Refills Prov:CAITLYN SANTILLAN [employer] 5/20/20 Diltiazem HCl (Cardizem Cd) 120 Mg Cap.er.24h, 120 MG PO DAILY, #90 CAP Two capsules in the morning and one capsule in the evening Prov:CAITLYN SANTILLAN [employer] 5/20/20 Furosemide (Lasix) 80 Mg Tablet, 80 MG PO DAILY, #30 TAB 3 Refills Prov:CAITLYN SANTILLAN [employer] 04/08/20 Spironolactone (Spironolactone) 25 Mg Tablet, 25 MG PO DAILY, #30 TAB 5 Refills Prov:CAITLYN SANTILLAN [employer] 04/08/20 Reported Medications Docusate Sodium (Stool Softener) 100 Mg Capsule, 200 MG PO 1200, CAP 04/07/20 Multivit-Min/FA/Lycopen/Lutein (Centravites 50 Plus Tablet) 1 Each Tablet, 1 EACH PO 1200, TAB 04/07/20 Aspirin (Aspirin EC) 81 Mg Tablet.dr, 81 MG PO 1200, TAB 03/11/19 Apixaban (Eliquis) 5 Mg Tablet, 5 MG PO BID, TAB 10/23/17 Objective Exam Constitutional: [] HEENT: [] Neck: [Pain with palpation and motion but he states it's unchanged prior to his fall] Cardiovascular: [] Respiratory: [] Gastrointestinal: [] Genitourinary: [] Skin: [] Back/Spine: [Pain with palpation but again he states this is unchanged prior to his fall] Extremities: [] Good motion of both upper extremities without pain. No deformity or crepitation. He has normal sensation in his fingers and thumb with good cap refill and good radial pulse. Good strength on and grass, flexion and extension of the wrist elbows against resistance. He does have some chronic bruising both upper extremities. Lower extremitiespain with palpation motion left hip. No pain or swelling either knee. No skin changes both lower extremities. No pain other ankle. He has normal sensation to the foot and toes with good cap refill and equal pulses. No pain with range of motion of the right hip or knee Neurologic: [] Psychiatric: [] Hematologic/lymphatic/immunologic: [] Vital Signs Vital Signs Date Time Temp Pulse Resp B/P (MAP) Pulse Ox O2 Delivery O2 Flow Rate FiO2 11/18/20 12:39 96 Room Air 11/18/20 10:04 35.1 95 20 136/96 (109) 96 Room Air 11/18/20 10:04 35.1 94 20 136/96 (109) 95 Room Air Lab Results Laboratory Tests 11/18/20 10:05: White Blood Count 7.6, Red Blood Count 3.99L, Hemoglobin 13.0L, Hematocrit 38L, Mean Corpuscular Volume 96, Mean Corpuscular Hemoglobin 33, Mean Corpuscular Hemoglobin Concent 34, Red Cell Distribution Width 14.6H, Platelet Count 75L, Mean Platelet Volume 10.9, Immature Granulocyte % (Auto) 1, Neutrophils (%) (Auto) 81H, Lymphocytes (%) (Auto) 13, Monocytes (%) (Auto) 6, Eosinophils (%) (Auto) 0, Basophils (%) (Auto) 0, Neutrophils # (Auto) 6.2, Lymphocytes # (Auto) 1.0, Monocytes # (Auto) 0.4, Eosinophils # (Auto) 0.0, Basophils # (Auto) 0.0, Immature Granulocyte # (Auto) 0.1, Sodium Level 140, Potassium Level 3.7, Chloride Level 108H, Carbon Dioxide Level 22, Anion Gap 10, Blood Urea Nitrogen 14, Creatinine 0.81, Estimat Glomerular Filtration Rate > 60, BUN/Creatinine Ratio 17, Glucose Level 127H, Calcium Level 9.3, Corrected Calcium 9.5, Total Bilirubin 1.0, Aspartate Amino Transf (AST/SGOT) 28, Alanine Aminotransferase (ALT/SGPT) 25, Alkaline Phosphatase 54, Total Protein 6.7, Albumin 3.8 11/18/20 12:10: Urine Color YELLOW, Urine Clarity CLEAR, Urine pH 5.5, Urine Specific [place] 1.025H, Urine Protein NEGATIVE, Urine Glucose (UA) NEGATIVE, Urine Ketones TRACEH, Urine Nitrite NEGATIVE, Urine Bilirubin NEGATIVE, Urine Urobilinogen 0.2, Urine Leukocyte Esterase NEGATIVE, Urine RBC (Auto) NEGATIVE, Urine RBC RARE, Urine WBC 2-5, Urine Squamous Epithelial Cells 2-5, Urine Crystals PRESENTH, Urine Calcium Oxalate Crystals RAREH, Urine Amorphous Sediment FEW LUCILLE R URATESH, Urine Bacteria TRACE, Urine Casts PRESENT, Urine Hyaline Casts RARE, Urine Mucus SMALLH, Urine Culture Indicated NO Imaging X-rays of the left hip shows an impacted subcapital fracture X-rays left knee shows tricompartment arthritis X-rays left ribs are negative for fracture Assessment and Plan Assessment Impacted subcapital fracture left hip Problem List Impacted subcapital fracture left hip Osteoarthritis left knee Chronic neck and back pain Plan Treatment options were discussed with the patient. I explained his fracture. I talked to him about operative and nonoperative treatment. He wanted to proceed with nonoperative treatment he would be nonweightbearing for possibly 6-8 weeks. Even with that the fracture could move that may require surgery. Surgical treatment would include screw fixation her femoral neck fixation device for the impacted subcapital fracture. Additional surgery would be a hemiarthroplasty. After discussing all the treatment options he wants to proceed with surgical treatment but does not want a hemiarthroplasty. He stated he wanted to keep his own femoral head. We will plan on screw fixation or the femoral neck device for fixation of the impacted subcapital fracture. He understands even with this fracture could move or not heal or the head could undergo avascular necrosis requiring additional surgery. He understands procedure risks, occasions would like to proceed. He has A. fib and has had 5 MIs. He's also had stents inserted. Dr. eVga did talk to Dr. Puente who will admit the patient and clear him for surgery. We have him tentatively scheduled for 10 o'clock tomorrow morning. He understands we'll use antibiotics pre-and postop and most likely Lovenox postop for DVT prophylaxis. Everything goes well with surgery we probably start him on partial weightbearing initially for several weeks then progress to full weightbearing. He understands and sees on Eloquis he may bleed or use a little more than normal that could potentially require transfusion. He understands that there is bleeding right now from just the fracture. Final Diagonsis Impacted subcapital fracture left hip Level of the visit: Level 3 RONNELL MENJIVAR MD Nov 18, 2020 13:39
[2020-11-18] MEDS ORDERED: fentaNYL INJECTION 100 MCG/2 ML AMP IVP PRN ×2 (13:45)
[2020-11-18 14:11] LABS: INR 1.5 (0.8-1.4); PROTHROMBIN TIME PATIENT 18.2 SEC (12.2-14.7)
--- NOTE | 2020-11-18 15:25 | NUR ---
PT REQUESTED THAT HIS BE NOTIFIED OF HIS CONDTION AND THAT HE WILL NEED TO BE ADMITTED FOR SURGERY WELL INPATIENT CARE. CALLED HIS (JAYME) AND NOTIFIED HER OF HIS ROOM NUMBER AND THE APPROXIMATE TIME OF SURGERY FOR PT'S PROCEDURE. REQUESTED THAT HIS FLOOR NURSE STAY IN CONTACT WITH HER DUE TO CURRENT VISITATION RESTRICTIONS. DURING FLOOR REPORT THE PT AND REQUEST WAS RELAYED TO THE FLOOR STAFF AND PTS FLOOR NURSE.
--- NOTE | 2020-11-18 16:04 | Consultation-Cardiology ---
HPI-Cardiology Cardiology Consultation: Date of Consultation 11/18/20 Time Seen by a Provider: 16:10 Date of Admission 11-18-2020 Attending Physician Christin Puente DO Admitting Physician Elieser Peraza MD Consulting Physician Alvina Winters MD HPI: Chief Complaint: Non-syncopal fall A-fib Mr. Elkins is an 85 yr old male admitted to 411 from the ED after having a non- syncopal fall at home resulting in a hip fracture. He reports this morning he got up to use the BR and lost his balance causing him to fall. He reports he and his were able to get him up off the floor and EMS was called. He reports right hip pain, but it is better following IV Fentanyl in the ED. He denies any c/o CP, palpitations, syncope or near syncope. He does not report any LE swelling. He states he has been drinking beer in the evenings. He reports a feeling of "gasping" for air at times. Review of Systems-Cardiology Review of Systems Constitutional: No chills, No fever; lightheadedness Eyes: No vision change Ears/Nose/Throat: No epistaxis, No recent hearing loss Respiratory: As described under HPI Cardiovascular: As described under HPI Gastrointestinal: no symptoms reported Genitourinary: no symptoms reported Musculoskeletal: back pain (chronic) Skin: No rash on exposed areas, No ulcerations on exposed areas Psychiatric/Neurological: No anxiety, No depression, No seizure, No focal weakness Hematologic: No bleeding abnormalities All Other Systems Reviewed Negative Unless Noted: Yes EYB-Dvxfxc-Vddkrn Hx Patient Social History Alcohol Use: Past History Recreational Drug Use: No Smoking Status: Former Smoker Former smoker/When Quit: Nov 20, 1977 Type Used: Cigarettes Recent Foreign Travel: No Recent Infectious Disease Expo: No Hospitalization with Isolation: Denies Immunizations Up To Date Tetanus Booster (TDap): Unknown Date of Pneumonia Vaccine: Jul 29, 2020 Date of Influenza Vaccine: Aug 20, 2019 Past Medical History PMH As described under Assessment. Family Medical History Family Medical History: Denies any family h/o CAD or CVA. Reports mother had HTN. Family History: Patient reports no known family medical history. Allergies and Home Medications Allergies Coded Allergies: Vwzrezu-Gyb-Jjs Reductase Inhibitor (Unverified Allergy, Unknown, 03/12/19) codeine (Unverified Adverse Reaction, Mild, Altered taste, 02/13/15) Uncoded Allergies: beta blockers (Adverse Reaction, Severe, severe bradycardia, 04/07/20) Home Medications Apixaban 5 Mg Tablet, 5 MG PO BID, (Reported) Aspirin 81 Mg Tablet.dr, 81 MG PO 1200, (Reported) Diltiazem HCl 120 Mg Cap.er.24h, 120 MG PO DAILY, (Reported) Diltiazem HCl 120 Mg Cap.er.24h, 240 MG PO HS, (Reported) TAKES 2 (120MG) CAPS Docusate Sodium 100 Mg Capsule, 200 MG PO 1200,2100, (Reported) Multivit-Min/FA/Lycopen/Lutein 1 Each Tablet, 1 EACH PO 1200, (Reported) Physical Exam-Cardiology Physical Exam Vital Signs/I&O 11/22/20 11/23/20 11/23/20 11/23/20 23:32 01:00 03:40 06:48 Temp 36.5 36.8 Pulse 69 78 95 95 Resp 18 18 B/P (MAP) 122/78 (93) 118/67 (84) Pulse Ox 97 98 O2 Delivery Room Air Room Air 11/23/20 08:00 Temp 35.2 Pulse 97 Resp 18 B/P (MAP) 133/71 (91) Pulse Ox 97 O2 Delivery Room Air 11/23/20 00:00 Intake Total 660 ml Output Total 675 ml Balance -15 ml Capillary Refill : Less Than 3 Seconds Constitutional: AAO x 3, well-developed, other (thin) HEENT: PERRL, hearing is well preserved, oral hygience is good Neck: No carotid bruit; carotid pulses are 2 + bilaterally Respiratory: No accessory muscle use, No respiratory distress; chest expansion is symmetric, chest is bilaterally symmetric, lungs clear to auscultation Cardiovascular: irregularly irregular; No JVD; tachycardia, systolic murmur Gastrointestinal: No tender; soft, round, audible bowel sounds Extremities: no lower extremity edema bilateral Neurologic/Psychiatric: other (left leg not manipulated d/t fracture, moves all other extremities) Skin: No rash on exposed areas, No ulcerations on exposed areas Data Review Labs Laboratory Tests 11/23/20 06:05: White Blood Count 6.3, Red Blood Count 3.57L, Hemoglobin 11.6L, Hematocrit 35L, Mean Corpuscular Volume 97, Mean Corpuscular Hemoglobin 33, Mean Corpuscular Hemoglobin Concent 34, Red Cell Distribution Width 14.6H, Platelet Count 108L, Mean Platelet Volume 11.5, Immature Granulocyte % (Auto) 1, Neutrophils (%) (Auto) 70, Lymphocytes (%) (Auto) 20, Monocytes (%) (Auto) 9, Eosinophils (%) (Auto) 1, Basophils (%) (Auto) 0, Neutrophils # (Auto) 4.4, Lymphocytes # (Auto) 1.3, Monocytes # (Auto) 0.6, Eosinophils # (Auto) 0.0, Basophils # (Auto) 0.0, Immature Granulocyte # (Auto) 0.0, Sodium Level 135, Potassium Level 3.4L, Chloride Level 103, Carbon Dioxide Level 24, Anion Gap 8, Blood Urea Nitrogen 11, Creatinine 0.71, Estimat Glomerular Filtration Rate > 60, BUN/Creatinine Ratio 15, Glucose Level 104, Calcium Level 8.6, Corrected Calcium 9.2, Total Bilirubin 1.3H, Aspartate Amino Transf (AST/SGOT) 30, Alanine Aminotransferase (ALT/SGPT) 17, Alkaline Phosphatase 50, Total Protein 5.9L, Albumin 3.3 Radiology NAME: TAJ ELKINS [facility] REC#: [id number] PT STATUS: ADM IN : 1935 PHYSICIAN: JAY RAMIREZ MD ADMIT DATE: 11/18/20 Signed Date of Exam:11/18/20 HIP, LEFT, 2 VIEWS INDICATION: Fall with left hip pain. TIME OF EXAM: 11:40 a.m. TECHNIQUE: Two views of the left hip were obtained. FINDINGS: There appears to be a subcapital hip fracture. Femoroacetabular alignment is maintained. Left-sided rami appear to be intact. No other fractures are identified. IMPRESSION: Findings suggestive of subcapital left hip fracture. Dictated by: Dictated on workstation # [id number] Dict: 11/18/20 1206 Trans: 11/18/20 1546 [id number] [id number] Interpreted by: YOLA JONES MD Electronically signed by: YOLA JONES MD 11/18/20 1546 A/P-Cardiology Assessment/Admission Diagnosis S/P fall resulting in left hip fracture on 11-18-2020 A Fib with RVR. A-fib first diagnosed on 03/10/19, treated with elec CV on 03/11/19, but with subsequent recurrence - currently in a-fib with RVR Eliquis for stroke prophylaxis 24 HR Holter of Aug 2020 showed a-fib throughout the study with av vent rate 85 bpm, no signif audelia, coupled and isolated PVC's Acute on chronic 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 Last cath was on 05/20/14. It showed diffuse disease consisting of up to 50% stenoses in all cors. FFR across multiple mid-vessel LAD lesions was 0.92, indicating hemodynamic insignificance. There was a patent stent in mid LAD and in distal RCA. Distal RCA stent is known to be Promus [id number] placed in Aug 2012. LVEF on cath of May 2014 was 45% and LVEDP was mildly elevated Hyperlipidemia, but the patient is intolerant to statins. Postural hypotension, resolved following cessation of therapy with RYAN inhibitors and Terazosin. Multiple medication intolerances. See below. Intolerance to beta-blockers on account of symptomatic bradycardia and h ypotension. Intolerance to RYAN inhibitors on account of postural hypotension Intolerance to ARBs on account of dizziness. Intolerance to warfarin due to nonspecific symptoms and fear of side effects - currently on apixaban Mild carotid arterial disease (less than 40%) per carotid ultrasonography of May 2016. Chronic moderate vertigo. Chronic low back pain, s/p low low back kyphoplasty, but back pain has persisted Discussion and Recomendations S/P fall, pt reports non-syncopal resulting in left hip fracture - Dr. Petit of ortho services has advised surgical repair A-fib with RVR at the time of exam - we will give additional Cardizem CD 240mg now - if HR does not improve may need Cardizem gtt Inolerant to multiple medications as listed above, including BB OAC with Eliquis for stroke prophylaxis - hold for now d/t impending surgery tomorrow - advise it be resumed immediately following procedure if deemed surgically safe d/t risk of stroke without anticoagulation tx Monitor lab closely EKG Telemetry Replace electrolytes as indicated Further recs will be based on his hospital course We would like to thank medical services for this consult Surgical risk to be determined by Dr. Winters Clinical Quality Measures DVT/VTE Risk/Contraindication: Risk Factor Score Per Nursin RFS Level Per Nursing on Admit: 4+=Very High Contraindications-Pharm: Other *list below* Other: SURGERY CAITLYN SANTILLAN Nov 18, 2020 16:04
--- NOTE | 2020-11-18 16:20 | NUR ---
TAJ ELKINS admitted to room 411-1, with an admitting diagnosis of FX LEFT HIP, on 11/18/20 from ER via STRETCHER, accompanied by STAFF.TAJ ELKINS JR introduced to surroundings, call light, bed controls, phone, TV, temperature control, lights, meal times, smoking policy, visitor policy, side rail policy, bathrooms and showers. Patient Rights given to patient in the handbook.TAJ ELKINS JR verbalizes understanding that [facility] is not responsible for the loss or damage to any personal effects or valuables that are kept in the patients posession during their hospitalization. The following Patient Care Plans were discussed with the PT: Discharge Planning, PAIN CONTROL,TESTS AND PROCEDURES, and IV THERAPY, PRE-OP AND POST-OP. TAJ ELKISN JR verbalizes understanding of Interdisciplinary Patient Education. Patient and/or family were informed about the Rapid Response Team and its purpose.
[2020-11-18] MEDS: HYDROcodone/APAP 10 MG/325 MG (LORTAB) TAB PO PRN (16:54)
[2020-11-18] MEDS ORDERED: dilTIAZem DRIP PRE-MIX 125 ML IV ONE (19:17)
--- NOTE | 2020-11-18 20:13 | Consultation-Cardiology ---
HPI-Cardiology Cardiology Consultation: Date of Consultation 11/18/20 Time Seen by a Provider: 18:50 Date of Admission Attending Physician Christin Puente DO Admitting Physician Elieser Peraza MD Consulting Physician UZIEL SHEEHAN MD, MA, FACP, FACC, FSCAI, CCDS Physician requesting consult: Dr Puente HPI: Chief Complaint: Reason for consulatation: Non-syncopal fall, A-fib HPI Mr. Prince is an 85 yr old male admitted to [facility] from the ED after having a non- syncopal fall at home resulting in a hip fracture. He reports this morning he got up to use the BR and lost his balance causing him to fall. He reports he and his were able to get him up off the floor and EMS was called. He reports right hip pain, but it is better following IV Fentanyl in the ED. He denies any c/o CP, palpitations, syncope or near syncope. He does not report any LE swelling. He states he has been drinking beer in the evenings. He reports a feeling of "gasping" for air at times. Review of Systems-Cardiology Review of Systems Constitutional: No chills, No fever; lightheadedness Eyes: No vision change Ears/Nose/Throat: No epistaxis, No recent hearing loss Respiratory: As described under HPI Cardiovascular: As described under HPI Gastrointestinal: no symptoms reported Genitourinary: no symptoms reported Musculoskeletal: back pain (chronic) Skin: No rash on exposed areas, No ulcerations on exposed areas Psychiatric/Neurological: No anxiety, No depression, No seizure, No focal weakness Hematologic: No bleeding abnormalities All Other Systems Reviewed Negative Unless Noted: Yes UQK-Eqpbvr-Friwha Hx Patient Social History Alcohol Use: Past History Recreational Drug Use: No Smoking Status: Former Smoker Former smoker/When Quit: Nov 20, 1977 Type Used: Cigarettes Recent Foreign Travel: No Recent Infectious Disease Expo: No Hospitalization with Isolation: Denies Immunizations Up To Date Tetanus Booster (TDap): Unknown Date of Pneumonia Vaccine: Jul 29, 2020 Date of Influenza Vaccine: Aug 20, 2020 Past Medical History PMH As described under Assessment. Family Medical History Family Medical History: Denies any family h/o CAD or CVA. Reports mother had HTN. Family History: Patient reports no known family medical history. Allergies and Home Medications Allergies Coded Allergies: Opqsyxq-Knx-Tfa Reductase Inhibitor (Unverified Allergy, Unknown, 03/12/19) codeine (Unverified Adverse Reaction, Mild, Altered taste, 02/13/15) Uncoded Allergies: beta blockers (Adverse Reaction, Severe, severe bradycardia, 04/07/20) Home Medications Apixaban 5 Mg Tablet, 5 MG PO BID, (Reported) Aspirin 81 Mg Tablet.dr, 81 MG PO 1200, (Reported) Digoxin 250 Mcg Tablet, 250 MCG PO DAILY Prescribed by: CAITLYN SANTILLAN on 04/08/20820 Diltiazem HCl 120 Mg Cap.er.24h, 120 MG PO DAILY Two capsules in the morning and one capsule in the evening Prescribed by: CAITLYN SANTILLAN on 04/08/20820 Docusate Sodium 100 Mg Capsule, 200 MG PO 1200, (Reported) Furosemide 80 Mg Tablet, 80 MG PO DAILY Prescribed by: CAITLYN SANTILLAN on 04/08/20820 Multivit-Min/FA/Lycopen/Lutein 1 Each Tablet, 1 EACH PO 1200, (Reported) Potassium Chloride 20 Meq Tablet.er, 20 MEQ PO DAILY Prescribed by: CAITLYN SANTILLAN on 04/08/20820 Spironolactone 25 Mg Tablet, 25 MG PO DAILY Prescribed by: CAITLYN SANTILLAN on 04/08/20820 Patient Home Medication List Home Medication List Reviewed: Yes Physical Exam-Cardiology Physical Exam Vital Signs/I&O 11/18/20 11/18/20 11/18/20 11/18/20 10:04 10:04 12:39 15:31 Temp 35.1 35.1 Pulse 94 95 117 Resp 20 20 20 B/P (MAP) 136/96 (109) 136/96 (109) 124/82 Pulse Ox 95 96 96 96 O2 Delivery Room Air Room Air Room Air Room Air 11/18/20 11/18/20 11/18/20 11/18/20 16:00 16:40 17:09 17:20 Temp 36.6 35.1 Pulse 120 120 105 Resp 24 24 B/P (MAP) 133/96 (108) 133/96 Pulse Ox 96 96 O2 Delivery Nasal Cannula Room Air Nasal Cannula O2 Flow Rate 3.00 3.00 2.00 11/18/20 19:53 Temp 36.6 Pulse 112 Resp 18 B/P (MAP) 125/96 (106) Pulse Ox 97 O2 Delivery Nasal Cannula O2 Flow Rate 3.00 Capillary Refill : Less Than 3 SecondsLess Than 3 Seconds Constitutional: AAO x 3, well-developed, other (thin) HEENT: PERRL, hearing is well preserved, oral hygience is good Neck: No carotid bruit; carotid pulses are 2 + bilaterally Respiratory: No accessory muscle use, No respiratory distress; chest expansion is symmetric, chest is bilaterally symmetric, lungs clear to auscultation Cardiovascular: irregularly irregular; No JVD; tachycardia, systolic murmur Gastrointestinal: No tender; soft, round, audible bowel sounds Extremities: no lower extremity edema bilateral Neurologic/Psychiatric: other (left leg not manipulated d/t fracture, moves all other extremities) Skin: No rash on exposed areas, No ulcerations on exposed areas Data Review Labs Laboratory Tests 11/18/20 10:05: White Blood Count 7.6, Red Blood Count 3.99L, Hemoglobin 13.0L, Hematocrit 38L, Mean Corpuscular Volume 96, Mean Corpuscular Hemoglobin 33, Mean Corpuscular Hemoglobin Concent 34, Red Cell Distribution Width 14.6H, Platelet Count 75L, Mean Platelet Volume 10.9, Immature Granulocyte % (Auto) 1, Neutrophils (%) (Auto) 81H, Lymphocytes (%) (Auto) 13, Monocytes (%) (Auto) 6, Eosinophils (%) (Auto) 0, Basophils (%) (Auto) 0, Neutrophils # (Auto) 6.2, Lymphocytes # (Auto) 1.0, Monocytes # (Auto) 0.4, Eosinophils # (Auto) 0.0, Basophils # (Auto) 0.0, Immature Granulocyte # (Auto) 0.1, Prothrombin Time 18.2H, INR Comment 1.5H, Activated Partial Thromboplast Time 31, Sodium Level 140, Potassium Level 3.7, Chloride Level 108H, Carbon Dioxide Level 22, Anion Gap 10, Blood Urea Nitrogen 14, Creatinine 0.81, Estimat Glomerular Filtration Rate > 60, BUN/Creatinine Ratio 17, Glucose Level 127H, Calcium Level 9.3, Corrected Calcium 9.5, Total Bilirubin 1.0, Aspartate Amino Transf (AST/SGOT) 28, Alanine Aminotransferase (ALT/SGPT) 25, Alkaline Phosphatase 54, Total Protein 6.7, Albumin 3.8 11/18/20 12:10: Urine Color YELLOW, Urine Clarity CLEAR, Urine pH 5.5, Urine Specific [place] 1.025H, Urine Protein NEGATIVE, Urine Glucose (UA) NEGATIVE, Urine Ketones TRACEH, Urine Nitrite NEGATIVE, Urine Bilirubin NEGATIVE, Urine Urobilinogen 0.2, Urine Leukocyte Esterase NEGATIVE, Urine RBC (Auto) NEGATIVE, Urine RBC RARE, Urine WBC 2-5, Urine Squamous Epithelial Cells 2-5, Urine Crystals PRESENTH, Urine Calcium Oxalate Crystals RAREH, Urine Amorphous Sediment FEW STEVEN URATESH, Urine Bacteria TRACE, Urine Casts PRESENT, Urine Hyaline Casts RARE, Urine Mucus SMALLH, Urine Culture Indicated NO A/P-Cardiology Assessment/Admission Diagnosis S/P fall resulting in left hip fracture on 11-18-2020 A Fib with RVR. A-fib first diagnosed on 03/10/19, treated with elec CV on 02/19 01/08, but with subsequent recurrence - currently in a-fib with RVR Eliquis for stroke prophylaxis 24 HR Holter of Aug 2020 showed a-fib throughout the study with av vent rate 85 bpm, no signif audelia, coupled and isolated PVC's Acute on chronic 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 Last cath was on 05/20/14. It showed diffuse disease consisting of up to 50% stenoses in all cors. FFR across multiple mid-vessel LAD lesions was 0.92, indicating hemodynamic insignificance. There was a patent stent in mid LAD and in distal RCA. Distal RCA stent is known to be Promus 2.5x12 placed in Aug 2012. LVEF on cath of May 2014 was 45% and LVEDP was mildly elevated Hyperlipidemia, but the patient is intolerant to statins. Postural hypotension, resolved following cessation of therapy with RYAN inhibitors and Terazosin. Multiple medication intolerances. See below. Intolerance to beta-blockers on account of symptomatic bradycardia and hypotension. Intolerance to RYAN inhibitors on account of postural hypotension Intolerance to ARBs on account of dizziness. Intolerance to warfarin due to nonspecific symptoms and fear of side effects - currently on apixaban Mild carotid arterial disease (less than 40%) per carotid ultrasonography of May 2016. Chronic moderate vertigo. Chronic low back pain, s/p low low back kyphoplasty, but back pain has persisted Discussion and Recomendations Cardiac risk for noncardiac surgery is estimated to be relatively high and cannot be further modified. Risk of morbidity/mortality may be even higher if hip fracture is left untreated For A-fib with RVR, we will give additional Cardizem CD 240mg now - if HR does not improve may need Cardizem gtt Inolerant to multiple medications as listed above, including BB. This makes management very difficult OAC with Eliquis for stroke prophylaxis - hold for now d/t impending surgery tomorrow - advise it be resumed immediately following procedure when deemed surgically safe (risk of stroke without anticoagulation tx) Monitor lab closely EKG Telemetry Replace electrolytes as indicated Further recs will be based on his hospital course Clinical Quality Measures DVT/VTE Risk/Contraindication: Risk Factor Score Per Nursin RFS Level Per Nursing on Admit: 4+=Very High Contraindications-Pharm: Other *list below* Other: SURGERY UZIEL SHEEHAN MD FACP [facility] CCDS Nov 18, 2020 20:13
[2020-11-18] MEDS ORDERED: DOCUSATE SODIUM 100 MG (COLACE) CAP PO PRN (20:15)
[2020-11-18] MEDS ORDERED: ACETAMINOPHEN 500 MG TAB (TYLENOL) PO PRN (20:15)
[2020-11-18] MEDS ORDERED: ONDANSETRON 4 MG/2 ML (SDV) Z0FRAN IVP PRN (20:15)
[2020-11-18] MEDS ORDERED: MELATONIN 3 MG TABLET PO PRN (20:15)
[2020-11-18] MEDS ORDERED: diphenhydrAMINE 25 MG TAB (BENADRYL) PO PRN (20:15)
[2020-11-18] MEDS ORDERED: CALCIUM CARBONATE 500 MG (TUMS) TAB.CHEW PO PRN (20:15)
[2020-11-18] MEDS ORDERED: LOPERAMIDE 2 MG (IMODIUM) TABLET PO PRN (20:15)
[2020-11-18] MEDS: HYDROcodone/APAP 5 MG/325 MG (LORTAB) TAB PO PRN (20:22)
[2020-11-18] MEDS: SENNA W/DOCUSATE (SENOKOT S) TABLET PO SCH (20:30)
[2020-11-18] MEDS ORDERED: APIXABAN 5 MG (ELIQUIS) TABLET PO SCH (21:00)
[2020-11-19] VITALS (44 sets, daily range): BP systolic 93–155; BP diastolic 64–108
[2020-11-19] MEDS: HYDROcodone/APAP 5 MG/325 MG (LORTAB) TAB PO PRN (03:09)
[2020-11-19 03:33] LABS: BASOPHILS % (AUTO) 0 % (0-10); EOSINOPHILS % (AUTO) 0 % (0-10); HEMATOCRIT 35 % (40-54); HEMOGLOBIN 11.6 g/dL (13.3-17.7); LYMPHOCYTES # (AUTO) 1.4 10^3/uL (1.0-4.0); LYMPHOCYTES % (AUTO) 24 % (12-44); MEAN CORPUSCULAR HEMOGLOBIN 32 pg (25-34); MEAN CORPUSCULAR HGB CONC 33 g/dL (32-36); MEAN CORPUSCULAR VOLUME 96 fL (80-99); MEAN PLATELET VOLUME 12.7 fL (9.0-12.2); MONOCYTES # (AUTO) 0.4 10^3/uL (0.0-1.0); MONOCYTES % (AUTO) 8 % (0-12); NEUTROPHILS # (AUTO) 3.9 10^3/uL (1.8-7.8); NEUTROPHILS % (AUTO) 67 % (42-75); PLATELET COUNT 72 10^3/uL (130-400); WHITE BLOOD COUNT 5.8 10^3/uL (4.3-11.0)
[2020-11-19 04:03] LABS: ALANINE AMINOTRANSFERASE 19 U/L (0-55); ALBUMIN 3.3 GM/DL (3.2-4.5); ALKALINE PHOSPHATASE 46 U/L (40-136); BILIRUBIN,TOTAL 1.1 MG/DL (0.1-1.0); BUN/CREATININE RATIO 17; CALCIUM 8.8 MG/DL (8.5-10.1); CARBON DIOXIDE 25 MMOL/L (21-32); CHLORIDE 109 MMOL/L (98-107); CREATININE SERUM 0.75 MG/DL (0.60-1.30); GFR ESTIMATED > 60; GLUCOSE 106 MG/DL (70-105); MAGNESIUM 1.9 MG/DL (1.6-2.4); POTASSIUM 4.2 MMOL/L (3.6-5.0); SODIUM 141 MMOL/L (135-145); TOTAL PROTEIN 5.8 GM/DL (6.4-8.2)
--- NOTE | 2020-11-19 04:15 | Pulmonary Consultation ---
History of Present Illness History of Present Illness Date Seen by Provider: Nov 19, 2020 Time Seen by Provider: 04:09 Date of Admission Allergies and Home Medications Allergies Coded Allergies: Xeboaku-Rvm-Goq Reductase Inhibitor (Unverified Allergy, Unknown, 03/12/19) codeine (Unverified Adverse Reaction, Mild, Altered taste, 02/13/15) Uncoded Allergies: beta blockers (Adverse Reaction, Severe, severe bradycardia, 04/07/20) Home Medications Apixaban 5 Mg Tablet, 5 MG PO BID, (Reported) Aspirin 81 Mg Tablet.dr, 81 MG PO 1200, (Reported) Digoxin 250 Mcg Tablet, 250 MCG PO DAILY Prescribed by: CAITLYN SANTILLAN on 04/08/20820 Diltiazem HCl 120 Mg Cap.er.24h, 120 MG PO DAILY Two capsules in the morning and one capsule in the evening Prescribed by: CAITLYN SANTILLAN on 04/08/20820 Docusate Sodium 100 Mg Capsule, 200 MG PO 1200, (Reported) Furosemide 80 Mg Tablet, 80 MG PO DAILY Prescribed by: CAITLYN SANTILLAN on 04/08/20820 Multivit-Min/FA/Lycopen/Lutein 1 Each Tablet, 1 EACH PO 1200, (Reported) Potassium Chloride 20 Meq Tablet.er, 20 MEQ PO DAILY Prescribed by: CAITLYN SANTILLAN on 04/08/20820 Spironolactone 25 Mg Tablet, 25 MG PO DAILY Prescribed by: CAITLYN SANTILLAN on 04/08/20820 Past Dixyrmy-Ivaqts-Buwtfz Hx Patient Social History Alcohol Use: Past History Alcohol Beverage of Choice: Whiskey Recreational Drug Use: No Smoking Status: Former Smoker Type Used: Cigarettes Former Smoker, Quit: Dec 11, 1977 Recent Foreign Travel: No Contact w/Someone Who Travel: No Recent Infectious Disease Expo: No Recent Hopitalizations: No Physical Abuse: No Sexual Abuse: No Mistreated: No Fear: No Immunizations Up To Date Tetanus Booster (TDap): Unknown PED Vaccines UTD: No Date of Pneumonia Vaccine: Jul 29, 2020 Date of Influenza Vaccine: Aug 20, 2020 Seasonal Allergies Seasonal Allergies: No Past Medical History Surgeries: Yes (Cardiac stent x 2) Coronary Stent, Orthopedic Respiratory: No Cardiac: Yes (Cardiac stent X2 ) Atrial Fibrillation, Deep Vein Thrombosis, Heart Attack, High Cholesterol, Hypertension Neurological: Yes Vertigo Reproductive Disorders: No Genitourinary: Yes Benign Prostatic Hyperpl Gastrointestinal: No Polyps Musculoskeletal: Yes (FX L WRIST) Chronic Back Pain Endocrine: No HEENT: No Cancer: No Psychosocial: Yes Anxiety Integumentary: No Blood Disorders: No Adverse Reaction/Blood Tranf: No Family Medical History Patient reports no known family medical history. No Pertinent Family Hx Review of Systems Time Seen by Provider: 04:15 Sepsis Event Evaluation Height, Weight, BMI Height: 6'2.00" Weight: 163lbs. 2.0oz. 73.129016zx; 18.92 BMI Method:Stated Exam Exam Vital Signs Date Time Temp Pulse Resp B/P (MAP) Pulse Ox O2 Delivery O2 Flow Rate FiO2 11/18/20 23:00 80 20 120/73 (89) 99 Nasal Cannula 3.00 11/18/20 22:00 99 16 119/77 (91) 100 Nasal Cannula 3.00 11/18/20 21:00 Nasal Cannula 3.00 11/18/20 21:00 105 15 116/76 (89) 100 Nasal Cannula 3.00 11/18/20 20:28 122 11/18/20 20:00 135 16 124/92 (103) 100 Nasal Cannula 3.00 11/18/20 20:00 96 Nasal Cannula 3.00 11/18/20 19:53 36.6 112 18 125/96 (106) 97 Nasal Cannula 3.00 11/18/20 19:00 114 16 122/98 (106) 100 Nasal Cannula 3.00 11/18/20 19:00 117 11/18/20 17:20 105 11/18/20 17:09 Nasal Cannula 2.00 11/18/20 16:40 35.1 120 24 133/96 96 Room Air 3.00 11/18/20 16:00 36.6 120 24 133/96 (108) 96 Nasal Cannula 3.00 11/18/20 15:31 117 20 124/82 96 Room Air 11/18/20 12:39 96 Room Air 11/18/20 10:04 35.1 95 20 136/96 (109) 96 Room Air 11/18/20 10:04 35.1 94 20 136/96 (109) 95 Room Air I & O 11/19/20 07:00 Intake Total 625 ml Output Total 625 ml Balance 0 ml Height & Weight Height: 6'2.00" Weight: 163lbs. 2.0oz. 73.352006vm; 18.92 BMI Method:Stated Capillary Refill: Less Than 3 Seconds Peripheral Pulses: 2+ Radial Pulses (R), 2+ Radial Pulses (L) Gastrointestinal: normal bowel sounds, non tender, soft Results Lab Laboratory Tests 11/18/20 10:05 11/19/20 02:50 Assessment/Plan Assessment/Plan s/p Fall with left hip fracture -Ortho following -Possible surgery today Hypoxia -3 liters NC currently -Check CXR -Pt does not have oxygen at home Afib RVR - now controlled -Off cardizem gtt -Eiquis is currently held -Cardiology following Chronic thrombocytopenia -Monitor CHF with EF 15-20% diffuse hypokinesis, mod to severe MR and TR, RVSP 25 mmHg CAD - CHIDI HESS DO Nov 19, 2020 04:15
--- NOTE | 2020-11-19 06:33 | Diagnostic Imaging Report ---
INDICATION: Hypoxia. COMPARISON: 04/09/2020. FINDINGS: Single view of the chest demonstrates cardiac enlargement with central vascular congestion and bilateral pleural effusions. There is dependent atelectasis. There is no pneumothorax. Osseous structures stable. IMPRESSION: 1. Cardiac enlargement with central vascular congestion. 2. Mild size bilateral pleural effusions with dependent atelectasis. Dictated by: Dictated on workstation # [id number]
[2020-11-19] MEDS: SENNA W/DOCUSATE (SENOKOT S) TABLET PO SCH ×2 (07:51→20:35)
[2020-11-19] MEDS ORDERED: fentaNYL INJECTION 100 MCG/2 ML AMP ONE (09:10)
[2020-11-19] MEDS ORDERED: SEVOFLURANE (ULTANE) 15 ML INHAL SOLN ONE ×4 (09:10→14:06)
[2020-11-19] MEDS ORDERED: ONDANSETRON 4 MG/2 ML (SDV) Z0FRAN ONE (09:10)
[2020-11-19] MEDS ORDERED: proPOfol 200 MG/20 ML (DIPRIVAN) VIAL IV ONE (09:10)
[2020-11-19] MEDS ORDERED: LIDOCAINE PF 2% 5 ML (XYLOCAINE) VIAL ONE (09:10)
[2020-11-19] MEDS ORDERED: ceFAZolin 2 GM IV Premixed 50 ML IV SCH (09:30)
[2020-11-19] MEDS ORDERED: LACTATED RINGERS 1,000 ML IV PRN (09:45)
--- NOTE | 2020-11-19 09:56 | History & Physical-Hospitalist ---
History of Present Illness HPI/Chief Complaint CC: Left hip fracture with AF w/RVR HPI:: Tis is an 85yoWM who presented to the ER after a fall and found to have a lift hip fracture but AF w/RVR. Dr Petit consulted along with Dr Winters and patient was placed on Cardizem drip. Patient is very frail and weak and high risk for decompensation. Patient told me he is aware of the need for repair in order to ambulate and he misses his of 61 years. Source: patient, RN/MD, old records Exam Limitations: no limitations Date Seen 11/19/20 Time Seen by a Provider: 10:00 Attending Physician Christin Lincoln DO PCP Elieser Peraza MD Referring Physician TD ADAM DO Date of Admission Nov 18, 2020 at 13:15 Home Medications & Allergies Home Medications Reviewed patient Home Medication Reconciliation performed by pharmacy medication reconciliations ammonia refrigeration technician and/or nursing. Patients Allergies have been reviewed. Allergies Allergies Coded Allergies Vdhznsg-Ztm-Rcm Reductase Inhibitor (Unverified Allergy, Unknown, 03/12/19) codeine (Unverified Adverse Reaction, Mild, Altered taste, 02/13/15) Uncoded Allergies beta blockers ( Adverse Reaction, Severe, severe bradycardia, 04/07/20) Past Optcyhx-Qsjuak-Nujpvc Hx Past Med/Social Hx: Reviewed Nursing Past Med/Soc Hx, Reviewed and Corrections made Patient Social History Marrital Status: Employed/Student: retired Alcohol Use: Denies Use Alcohol Beverage of Choice: Whiskey Recreational Drug Use: No Smoking Status: Former Smoker Former Smoker, Quit: Dec 11, 1977 Type Used: Cigarettes Recent Foreign Travel: No Contact w/other who traveled: No Recent Hopitalizations: No Recent Infectious Disease Expo: No Immunizations Up To Date Tetanus Booster (TDap): Unknown Pediatric: No Date of Pneumonia Vaccine: Jul 29, 2020 Date of Influenza Vaccine: Aug 20, 2020 Seasonal Allergies Seasonal Allergies: No Past Medical History Surgeries: Coronary Stent, Orthopedic Cardiac: Atrial Fibrillation, Deep Vein Thrombosis, Heart Attack, High Cholesterol, Hypertension Neurological: Vertigo Reproductive: No Genitourinary: Benign Prostatic Hyperpl Gastrointestinal: Polyps Musculoskeletal: Chronic Back Pain Psychosocial: Anxiety History of Blood Disorders: No Adverse Reaction to Blood Agarwal: No Family History Patient reports no known family medical history. No Pertinent Family Hx Review of Systems Constitutional: see HPI Musculoskeletal: joint pain Psychiatric/Neurological: Weakness Physical Exam Physical Exam Vital Signs Vital Signs - First Documented 11/18/20 16:00 O2 Flow Rate 3.00 Capillary Refill : Less Than 3 SecondsLess Than 3 Seconds Height, Weight, BMI Height: 6'2.00" Weight: 163lbs. 2.0oz. 73.738246ma; 18.92 BMI Method:Stated General Appearance: No Apparent Distress, Chronically ill, Thin Eyes: Right Eye Normal Inspection, Right Eye PERRL HEENT: PERRL/EOMI, Normal ENT Inspection, Pharynx Normal, Moist Mucous Membranes Neck: Full Range of Motion, Normal Inspection, Non Tender Respiratory: Chest Non Tender, Lungs Clear, Normal Breath Sounds, No Accessory Muscle Use, No Respiratory Distress Cardiovascular: No Edema, No Gallop, No JVD, No Murmur, Normal Peripheral Pulses, Irregularly Irregular Gastrointestinal: Normal Bowel Sounds, No Organomegaly, No Pulsatile Mass, Non Tender, Soft Back: Normal Inspection, No CVA Tenderness, No Vertebral Tenderness Extremity: Normal Capillary Refill, Normal Inspection, Normal Range of Motion (except left leg), Non Tender, No Calf Tenderness, No Pedal Edema Neurologic/Psychiatric: Alert, Oriented x3, No Motor/Sensory Deficits, Normal Mood/Affect Skin: Normal Color, Warm/Dry Lymphatic: No Adenopathy Results Results/Procedures Labs Laboratory Tests 11/18/20 10:05 11/19/20 02:50 11/20/20 02:55 Patient resulted labs reviewed. Assessment/Plan Admission Diagnosis Assessment: Left hip fracture AF w/RVR CAD HTN HLP Plan: Hip repair Cardiology Monitor hgb Admission Status: Inpatient Order (span 2 midnights) Reason for Inpatient Admission: hip fracture Clinical Quality Measures DVT/VTE Risk/Contraindication: Risk Factor Score Per Nursin RFS Level Per Nursing on Admit: 4+=Very High Contraindications-Pharm: Other *list below* Other: SURGERY CHRISTIN LINCOLN DO Nov 19, 2020 09:56
--- NOTE | 2020-11-19 10:02 | Progress Note - Cardiology ---
Cardiology SOAP Progress Note Subjective: No cp or palp or syncope or shortness of breath Some gen malaise Objective: I&O/Vital Signs 11/18/20 11/18/20 11/19/20 11/19/20 22:00 23:00 00:00 01:00 Pulse 99 80 79 75 Resp 16 20 16 12 B/P (MAP) 119/77 (91) 120/73 (89) 116/93 (101) 114/81 (92) Pulse Ox 100 99 98 100 O2 Delivery Nasal Cannula Nasal Cannula Nasal Cannula Nasal Cannula O2 Flow Rate 3.00 3.00 3.00 3.00 11/19/20 11/19/20 11/19/20 11/19/20 01:00 02:00 03:00 04:00 Pulse 75 62 90 87 Resp 15 20 21 B/P (MAP) 126/74 (91) 138/79 (98) 119/76 (90) Pulse Ox 100 100 99 O2 Delivery Nasal Cannula Nasal Cannula Nasal Cannula O2 Flow Rate 3.00 3.00 3.00 11/19/20 11/19/20 11/19/20 11/19/20 04:00 05:00 06:00 06:15 Temp 35.6 Pulse 96 93 89 Resp 21 17 16 B/P (MAP) 124/75 (91) 113/78 (90) 113/78 (96) Pulse Ox 99 99 98 O2 Delivery Nasal Cannula Nasal Cannula O2 Flow Rate 3.00 3.00 11/19/20 11/19/20 11/19/20 11/19/20 06:30 06:45 07:00 07:00 Pulse 92 88 88 95 Resp 18 17 15 B/P (MAP) 113/69 (74) 114/65 (81) 115/70 (109) Pulse Ox 97 98 98 O2 Delivery Nasal Cannula O2 Flow Rate 3.00 11/19/20 11/19/20 11/19/20 11/19/20 07:15 07:30 07:35 07:45 Temp 36.5 Pulse 99 97 99 Resp 19 8 19 B/P (MAP) 125/74 (90) 122/84 (98) 132/74 (86) Pulse Ox 98 98 97 11/19/20 11/19/20 11/19/20 07:55 08:00 09:00 Pulse 87 87 Resp 22 25 B/P (MAP) 137/108 (123) 120/73 (89) Pulse Ox 98 95 95 O2 Delivery Nasal Cannula Nasal Cannula Nasal Cannula O2 Flow Rate 3.00 3.00 3.00 11/19/20 00:00 Intake Total 125 ml Output Total 400 ml Balance -275 ml Weight (Pounds): 163 Weight (Ounces): 2.0 Weight (Calculated Kilograms): 73.623668 Constitutional: AAO x 3, well-developed, other (thin) Respiratory: No accessory muscle use, No respiratory distress; chest expansion is symmetric, chest is bilaterally symmetric, lungs clear to auscultation Cardiovascular: irregularly irregular; No JVD; tachycardia, systolic murmur Gastrointestional: No tender; soft, round, audible bowel sounds Extremities: no lower extremity edema bilateral Neurologic/Psychiatric: other (left leg not manipulated d/t fracture, moves all other extremities) Skin: No rash on exposed areas, No ulcerations on exposed areas Results/Procedures: Labs Laboratory Tests 11/18/20 10:05: White Blood Count 7.6, Red Blood Count 3.99L, Hemoglobin 13.0L, Hematocrit 38L, Mean Corpuscular Volume 96, Mean Corpuscular Hemoglobin 33, Mean Corpuscular Hemoglobin Concent 34, Red Cell Distribution Width 14.6H, Platelet Count 75L, Mean Platelet Volume 10.9, Immature Granulocyte % (Auto) 1, Neutrophils (%) (Auto) 81H, Lymphocytes (%) (Auto) 13, Monocytes (%) (Auto) 6, Eosinophils (%) (Auto) 0, Basophils (%) (Auto) 0, Neutrophils # (Auto) 6.2, Lymphocytes # (Auto) 1.0, Monocytes # (Auto) 0.4, Eosinophils # (Auto) 0.0, Basophils # (Auto) 0.0, Immature Granulocyte # (Auto) 0.1, Prothrombin Time 18.2H, INR Comment 1.5H, Activated Partial Thromboplast Time 31, Sodium Level 140, Potassium Level 3.7, Chloride Level 108H, Carbon Dioxide Level 22, Anion Gap 10, Blood Urea Nitrogen 14, Creatinine 0.81, Estimat Glomerular Filtration Rate > 60, BUN/Creatinine Ratio 17, Glucose Level 127H, Calcium Level 9.3, Corrected Calcium 9.5, Total Bilirubin 1.0, Aspartate Amino Transf (AST/SGOT) 28, Alanine Aminotransferase (ALT/SGPT) 25, Alkaline Phosphatase 54, Total Protein 6.7, Albumin 3.8 11/18/20 12:10: Urine Color YELLOW, Urine Clarity CLEAR, Urine pH 5.5, Urine Specific [place] 1.025H, Urine Protein NEGATIVE, Urine Glucose (UA) NEGATIVE, Urine Ketones TRACEH, Urine Nitrite NEGATIVE, Urine Bilirubin NEGATIVE, Urine Urobilinogen 0.2, Urine Leukocyte Esterase NEGATIVE, Urine RBC (Auto) NEGATIVE, Urine RBC RARE, Urine WBC 2-5, Urine Squamous Epithelial Cells 2-5, Urine Crystals PRESENTH, Urine Calcium Oxalate Crystals RAREH, Urine Amorphous Sediment FEW STEVEN URATESH, Urine Bacteria TRACE, Urine Casts PRESENT, Urine Hyaline Casts RARE, Urine Mucus SMALLH, Urine Culture Indicated NO 11/19/20 02:50: White Blood Count 5.8, Red Blood Count 3.62L, Hemoglobin 11.6L, Hematocrit 35L, Mean Corpuscular Volume 96, Mean Corpuscular Hemoglobin 32, Mean Corpuscular Hemoglobin Concent 33, Red Cell Distribution Width 14.7H, Platelet Count 72L, Mean Platelet Volume 12.7H, Immature Granulocyte % (Auto) 1, Neutrophils (%) (Auto) 67, Lymphocytes (%) (Auto) 24, Monocytes (%) (Auto) 8, Eosinophils (%) (Auto) 0, Basophils (%) (Auto) 0, Neutrophils # (Auto) 3.9, Lymphocytes # (Auto) 1.4, Monocytes # (Auto) 0.4, Eosinophils # (Auto) 0.0, Basophils # (Auto) 0.0, Immature Granulocyte # (Auto) 0.0, Sodium Level 141, Potassium Level 4.2, Chloride Level 109H, Carbon Dioxide Level 25, Anion Gap 7, Blood Urea Nitrogen 13, Creatinine 0.75, Estimat Glomerular Filtration Rate > 60, BUN/Creatinine Ratio 17, Glucose Level 106H, Calcium Level 8.8, Corrected Calcium 9.4, Total Bilirubin 1.1H, Aspartate Amino Transf (AST/SGOT) 23, Alanine Aminotransferase (ALT/SGPT) 19, Alkaline Phosphatase 46, Total Protein 5.8L, Albumin 3.3, Phosphorus Level 3.2, Magnesium Level 1.9, Thyroid Stimulating Hormone (TSH) 1.81 Laboratory Tests 11/18/20 10:05 11/19/20 02:50 A/P: Assessment: S/P fall resulting in left hip fracture on 11-18-2020 A Fib with RVR. 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 Last cath was on 05/20/14. It showed diffuse disease consisting of up to 50% stenoses in all cors. FFR across multiple mid-vessel LAD lesions was 0.92, indicating hemodynamic insignificance. There was a patent stent in mid LAD and in distal RCA. Distal RCA stent is known to be Promus [id number] placed in Aug 2012. LVEF on cath of May 2014 was 45% and LVEDP was mildly elevated Hyperlipidemia, but the patient is intolerant to statins. Postural hypotension, resolved following cessation of therapy with RYAN inhibitors and Terazosin. Multiple medication intolerances. See below. Intolerance to beta-blockers on account of symptomatic bradycardia and hypotension. Intolerance to RYAN inhibitors on account of postural hypotension Intolerance to ARBs on account of dizziness. Intolerance to warfarin due to nonspecific symptoms and fear of side effects - c urrently on apixaban Mild carotid arterial disease (less than 40%) per carotid ultrasonography of May 2016. Chronic moderate vertigo. Chronic low back pain, s/p low low back kyphoplasty, but back pain has persisted Plan: Cardiac risk for noncardiac surgery is estimated to be relatively high and cannot be further modified. Risk of morbidity/mortality may be even higher if hip fracture is left untreated A Fib is currently well controlled I have discussed his cardiac risk with him and answered his questions. He understands his risk and wishes to proceed with his surgery after having discussed it with his surgeon Please resume anticoag as soon as possible and safe after surgery UZIEL SHEEHAN MD [facility] Nov 19, 2020 10:02
[2020-11-19] MEDS ORDERED: NS IV 500 ML 500 ML ONE (10:36)
[2020-11-19] MEDS ORDERED: NEO/POLY/BAC (NEOSPORIN) OINT 15 GM TUBE ONE (10:54)
[2020-11-19] MEDS: HYDROcodone/APAP 10 MG/325 MG (LORTAB) TAB PO PRN ×3 (11:00→21:19)
--- NOTE | 2020-11-19 11:30 | Progress Note - Ortho ---
Progress Note Subjective Date of Exam 11/19/20 Chief Complaint Impacted subcapital fracture left hip HPI/Events since last exam Mr. Prince is awaiting surgery on his left hip fracture. Dr. Winters feels his risks have not changed since yesterday despite his episode of tachycardia last evening. He's presently in ICU. He's been seen by Dr. Peña and Dr. Puente. Anesthesia wanted him to have some platelets prior to his surgery so were delaying his surgery a few hours. Review of Systems Reviewed and no additions or changes Allergies: Coded Allergies: Amoofiq-Rnd-Voa Reductase Inhibitor (Unverified Allergy, Unknown, 03/12/19) codeine (Unverified Adverse Reaction, Mild, Altered taste, 02/13/15) Uncoded Allergies: beta blockers (Adverse Reaction, Severe, severe bradycardia, 04/07/20) Home Meds Active Scripts Digoxin (Digoxin) 250 Mcg Tablet, 250 MCG PO DAILY, #30 TAB 3 Refills Prov:CAITLYN SANTILLAN [employer] SPECIALIST 04/08/20 Potassium Chloride (Potassium Chloride) 20 Meq Tablet.er, 20 MEQ PO DAILY, #30 TAB 3 Refills Prov:CAITLYN SANTILLAN [employer] SPECIALIST 04/08/20 Diltiazem HCl (Cardizem Cd) 120 Mg Cap.er.24h, 120 MG PO DAILY, #90 CAP Two capsules in the morning and one capsule in the evening Prov:CAITLYN SANTILLAN [employer] SPECIALIST 04/08/20 Furosemide (Lasix) 80 Mg Tablet, 80 MG PO DAILY, #30 TAB 3 Refills Prov:CAITLYN SANTILLAN [employer] SPECIALIST 04/08/20 Spironolactone (Spironolactone) 25 Mg Tablet, 25 MG PO DAILY, #30 TAB 5 Refills Prov:CAITLYN SANTILLAN [employer] SPECIALIST 04/08/20 Reported Medications Docusate Sodium (Stool Softener) 100 Mg Capsule, 200 MG PO 1200, CAP 04/07/20 Multivit-Min/FA/Lycopen/Lutein (Centravites 50 Plus Tablet) 1 Each Tablet, 1 EACH PO 1200, TAB 04/07/20 Aspirin (Aspirin EC) 81 Mg Tablet.dr, 81 MG PO 1200, TAB 03/11/19 Apixaban (Eliquis) 5 Mg Tablet, 5 MG PO BID, TAB 10/23/17 Objective Exam Constitutional: [] HEENT: [] Neck: [] Cardiovascular: [] Respiratory: [] Gastrointestinal: [] Genitourinary: [] Skin: [] Back/Spine: [] Extremities: [Pain left hip with palpation and motion. Neurovascularly is intact both lower extremities] Neurologic: [] Psychiatric: [] Hematologic/lymphatic/immunologic: [] Vital Signs Vital Signs Date Time Temp Pulse Resp B/P (MAP) Pulse Ox O2 Delivery O2 Flow Rate FiO2 11/19/20 11:16 36.8 11/19/20 11:07 36.7 101 22 124/88 98 Nasal Cannula 3.00 11/19/20 11:00 103 34 124/88 (100) 97 Nasal Cannula 3.00 11/19/20 10:56 36.6 100 20 107/78 97 Nasal Cannula 3.00 11/19/20 10:00 111 23 155/83 (107) 97 Nasal Cannula 3.00 11/19/20 09:00 87 25 120/73 (89) 95 Nasal Cannula 3.00 11/19/20 08:00 87 22 137/108 (123) 95 Nasal Cannula 3.00 11/19/20 07:55 98 Nasal Cannula 3.00 11/19/20 07:45 99 19 132/74 (86) 97 11/19/20 07:35 36.5 11/19/20 07:30 97 8 122/84 (98) 98 11/19/20 07:15 99 19 125/74 (90) 98 11/19/20 07:00 95 11/19/20 07:00 88 15 115/70 (109) 98 Nasal Cannula 3.00 11/19/20 06:45 88 17 114/65 (81) 98 11/19/20 06:30 92 18 113/69 (74) 97 11/19/20 06:15 89 16 113/78 (96) 98 11/19/20 06:00 93 17 113/78 (90) 99 Nasal Cannula 3.00 11/19/20 05:00 96 21 124/75 (91) 99 Nasal Cannula 3.00 11/19/20 04:00 35.6 11/19/20 04:00 87 21 119/76 (90) 99 Nasal Cannula 3.00 11/19/20 03:00 90 20 138/79 (98) 100 Nasal Cannula 3.00 11/19/20 02:00 62 15 126/74 (91) 100 Nasal Cannula 3.00 11/19/20 01:00 75 11/19/20 01:00 75 12 114/81 (92) 100 Nasal Cannula 3.00 11/19/20 00:00 79 16 116/93 (101) 98 Nasal Cannula 3.00 11/18/20 23:00 80 20 120/73 (89) 99 Nasal Cannula 3.00 11/18/20 22:00 99 16 119/77 (91) 100 Nasal Cannula 3.00 11/18/20 21:00 Nasal Cannula 3.00 11/18/20 21:00 105 15 116/76 (89) 100 Nasal Cannula 3.00 11/18/20 20:28 122 11/18/20 20:00 135 16 124/92 (103) 100 Nasal Cannula 3.00 11/18/20 20:00 96 Nasal Cannula 3.00 11/18/20 19:53 36.6 112 18 125/96 (106) 97 Nasal Cannula 3.00 11/18/20 19:00 114 16 122/98 (106) 100 Nasal Cannula 3.00 11/18/20 19:00 117 11/18/20 17:20 105 11/18/20 17:09 Nasal Cannula 2.00 11/18/20 16:40 35.1 120 24 133/96 96 Room Air 3.00 11/18/20 16:00 36.6 120 24 133/96 (108) 96 Nasal Cannula 3.00 11/18/20 15:31 117 20 124/82 96 Room Air 11/18/20 12:39 96 Room Air I & O 11/19/20 07:00 Intake Total 625 ml Output Total 975 ml Balance -350 ml Lab Results Laboratory Tests 11/18/20 12:10: Urine Color YELLOW, Urine Clarity CLEAR, Urine pH 5.5, Urine Specific [place] 1.025H, Urine Protein NEGATIVE, Urine Glucose (UA) NEGATIVE, Urine Ketones TRACEH, Urine Nitrite NEGATIVE, Urine Bilirubin NEGATIVE, Urine Urobilinogen 0.2, Urine Leukocyte Esterase NEGATIVE, Urine RBC (Auto) NEGATIVE, Urine RBC RARE, Urine WBC 2-5, Urine Squamous Epithelial Cells 2-5, Urine Crystals PRESENTH, Urine Calcium Oxalate Crystals RAREH, Urine Amorphous Sediment FEW STEVEN URATESH, Urine Bacteria TRACE, Urine Casts PRESENT, Urine Hyaline Casts RARE, Urine Mucus SMALLH, Urine Culture Indicated NO 11/19/20 02:50: White Blood Count 5.8, Red Blood Count 3.62L, Hemoglobin 11.6L, Hematocrit 35L, Mean Corpuscular Volume 96, Mean Corpuscular Hemoglobin 32, Mean Corpuscular Hemoglobin Concent 33, Red Cell Distribution Width 14.7H, Platelet Count 72L, Mean Platelet Volume 12.7H, Immature Granulocyte % (Auto) 1, Neutrophils (%) (Auto) 67, Lymphocytes (%) (Auto) 24, Monocytes (%) (Auto) 8, Eosinophils (%) (Auto) 0, Basophils (%) (Auto) 0, Neutrophils # (Auto) 3.9, Lymphocytes # (Auto) 1.4, Monocytes # (Auto) 0.4, Eosinophils # (Auto) 0.0, Basophils # (Auto) 0.0, Immature Granulocyte # (Auto) 0.0, Sodium Level 141, Potassium Level 4.2, Chloride Level 109H, Carbon Dioxide Level 25, Anion Gap 7, Blood Urea Nitrogen 13, Creatinine 0.75, Estimat Glomerular Filtration Rate > 60, BUN/Creatinine Ratio 17, Glucose Level 106H, Calcium Level 8.8, Corrected Calcium 9.4, Phospho lewis Level 3.2, Magnesium Level 1.9, Total Bilirubin 1.1H, Aspartate Amino Transf (AST/SGOT) 23, Alanine Aminotransferase (ALT/SGPT) 19, Alkaline Phosphatase 46, Total Protein 5.8L, Albumin 3.3, Thyroid Stimulating Hormone (TSH) 1.81 Assessment and Plan Assessment Awaiting surgery Problem List Unchanged Plan Proceed with surgery wants platelets are started. I again discussed the procedure, risks and complications he would like proceed. I also talked to his . Also asked him what he wanted me to do if by chance the femoral head is become displaced from its impacted position. He stated he would leave it up to me and his said the same thing. I talked to him about doing nothing versus hemiarthroplasty and he wants to proceed with hemiarthroplasty if the head is become displaced. Otherwise if it's still impacted and in good position we'll proceed with femoral neck fixation Diego's consult to the state open reduction internal fixation left hip fracture possible hemiarthroplasty Final Diagonsis Impacted subcapital fracture left hip Level of the visit: Level 3 Clinical Quality Measures DVT/VTE Risk/Contraindication: Risk Factor Score Per Nursin RFS Level Per Nursing on Admit: 4+=Very High Contraindications-Pharm: Other *list below* Other: SURGERY RONNELL MENJIVAR MD Nov 19, 2020 11:30
--- NOTE | 2020-11-19 12:19 | NUR ---
Pt taken to OR with 2 OR RNs
[2020-11-19] MEDS: LACTATED RINGERS 1,000 ML IV SCH ×2 (12:33→22:39)
[2020-11-19] MEDS ORDERED: ESMOLOL 100 MG/10 ML (BREVIBLOC) VIAL ONE (13:26)
[2020-11-19] MEDS ORDERED: morphine INJ 10 MG/ML 1ML (SYR OR VIAL) IVP ONE (14:15)
[2020-11-19] MEDS ORDERED: ONDANSETRON 4 MG/2 ML (SDV) Z0FRAN IVP PRN (14:15)
--- NOTE | 2020-11-19 14:40 | NUR ---
Pt returned from recovery accompanied by KARAN Delgadillo. Pt groggy but oriented. Drsg to Lt hip c/d/i. Pt has sensation to LLE. Denies needs. Call light within reach
--- NOTE | 2020-11-19 14:44 | Operative Report - Ortho ---
Operative Report Surgeon (s)/Mgmt Consultant (s) Surgeon RONNELL MENJIVAR MD Mgmt Consultant n/a Pre-Operative Diagnosis impacted subcapital fracture left hip Post-Operative Diagnosis same Operative Report Date of Procedure: Nov 19, 2020 Name of Procedure Performed: Femoral neck system impacted subcapital fracture left hip 110 mm bolt, 110 mm anti-rotational screw and 2 hole sideplate with a 50 and 55 mm cortical screw Description & Findings The patient was seen in the ICU and treatment options were again discussed. The patient has no further questions or concerns. If the head is not still minimally displaced he would like to proceed with a hemiarthroplasty. Otherwise we'll plan on proceeding with a femoral neck system device. The left leg was marked. The patient was taken to the operating room and after administration of general anesthesia was transferred to the fracture table. The left foot was placed in the traction boot and the right leg in the well leg nash. Minimal traction was placed on the left leg against the peroneal post. The left leg was placed in adduction and internal rotation. Image was then used to visualize the fracture in the subcapital fracture remained impacted on the AP view and slight valgus and slightly displaced posteriorly on the lateral view. Both were acceptable. Patient was given 2 g Ancef IV preoperatively. A timeout was performed. The left hip was then prepped and draped in the usual sterile manner. A guidepin was placed percutaneously through the superior aspect of the neck and the anterior superior aspect of the head for derotation stability. At this point incision was made just distal to the greater trochanter. This was taken down through subjacent tissue the iliotibial band and the vastus lateralis was split down to the lateral cortex. The guide was placed on the lateral cortex and a guidewire was placed into the central aspect of the neck and head in both AP and lateral views. This was measured and 110 mm ball was selected. This was overreamed over the guidewire which was set at 110 mm. Good position was noted of the reamer when the stop and hit the lateral cortex. Is about 5 mm of distance between the tip of the reamer and the articular surface of the head. At this point the reamer was removed and the 110 mm bolt was placed on the salesforce trainer and the ball was inserted. This was held in position as the hole was drilled through the guide for the anti-rotation screw. This was then inserted to again within about 5 mm of the articular surface. 110 mm screw was inserted. At this point the guides for the plate screws was inserted and drilled and a 55 mm then a 50 mm screw was placed through the sideplate. Images used to visualize the fracture and the device in both AP and lateral planes and excellent alignment was noted with again slight impaction of the fracture. The hip was then taken through full internal/external rotation on both AP and lateral views in the bolt and screw remained within the head. This point the salesforce trainer was removed. The wound was irrigated with normal saline. The iliotibial band was closed with 0 Vicryl, the subcutaneous tissue with 2-0 Vicryl the skin with skin clips. Wound was dressed with antibiotic ointment, Adaptic and 4 x 4's and ABDs which were then taped in position. Patient was then transferred to recovery room in good condition he tolerated procedure well. Counts were correct Blood loss 75 mL's Replacement none Drains none Complications none n/a Anesthesia Type Gen. Estimated Blood Loss 75 mL Packing none. Specimen(s) collected/removed None RONNELL MENJIVAR MD Nov 19, 2020 14:44
--- NOTE | 2020-11-19 14:52 | Diagnostic Imaging Report ---
Fluoroscopy at 125 INDICATION: Hip pain Fluoroscopic assistance was provided for Dr. Petit during his left hip repair. 1 minute 13 seconds of fluoroscopy time was utilized. AP and lateral spot films of the left hip were received from the OR. In the interval since the prior exam of 11/18/2020 orthopedic fixation screws have been inserted into the left femoral neck in the region of the subcapital fracture seen on the prior exam. The orthopedic hardware appears to be in good position although the inferior most screw within the subtrochanteric region does appear to extend just into the adjacent soft tissues. IMPRESSION: Fluoroscopic assistance was provided for Dr. Petit. Dictated by: Dictated on workstation # [id number]
[2020-11-19] MEDS ORDERED: DILT120C53 PO ×2 (16:52)
--- NOTE | 2020-11-19 17:11 | NUR ---
SPOKE WITH THE PT (HIS HOME MEDS WERE IN THE ROOM) AND WENT THRU THE EXT MED HISTORY TO COMPLETE THE MED REC CARTIA XT 120MG- DIRECTIONS ARE 1 CAP BID HOWEVER PT SAYS HE IS NOW TAKING 1 CAP DAILY AND 2 CAP HS ELIQUIS 5MG WAS LAST FILLED 07-21-2020 #180/90DS THRU A MAIL ORDER PATIENT ASSISTANCE PROGRAM IN JUNE 2020 POTASSIUM, FUROSEMIDE AND SPIRONOLACTONE WERE ALL FILLED FOR 30 DAY SUPPLIES, I MENTIONED THESE TO THE PT AND WAS TOLD THAT HE IS NO LONGER TAKING ANY OF THOSE MEDS OTC MEDS: ASPIRIN 81MG [employer] STOOL SOFTENER Addendum: 11/23/20 at 1236 by ERICA ENG CPhT PT IS ALSO NOT TAKING DIGOXIN THAT WAS FILLED JUN 2020
[2020-11-19] MEDS: ceFAZolin 2 GM IV Premixed 50 ML IV SCH (20:16)
--- NOTE | 2020-11-19 22:36 | NUR ---
Spoke with EICU regarding LR ordered to run at 100. pt EF is 15-20%, was concerned about fluid overload, LR started at 20 per EICU. Will continue to monitor
[2020-11-19] MEDS: ENOXAPARIN 30 MG/0.3 ML (LOVENOX) SYR SC SCH (22:39)
[2020-11-20] VITALS (11 sets, daily range): BP systolic 101–118; BP diastolic 66–85
[2020-11-20 03:55] LABS: PHOSPHORUS 3.1 MG/DL (2.3-4.7)
[2020-11-20 03:57] LABS: MAGNESIUM 1.7 MG/DL (1.6-2.4)
[2020-11-20] MEDS: ceFAZolin 2 GM IV Premixed 50 ML IV SCH (04:27)
[2020-11-20] MEDS: HYDROcodone/APAP 10 MG/325 MG (LORTAB) TAB PO PRN ×2 (04:34→13:50)
--- NOTE | 2020-11-20 04:50 | Pulmonary Progress Note ---
Subjective Time Seen by a Provider: 04:48 Subjective/Events-last exam no complications noted. Sepsis Event Evaluation Height, Weight, BMI Height: 6'2.00" Weight: 163lbs. 2.0oz. [id number]; 18.92 BMI Method:Stated Exam Exam Vital Signs Date Time Temp Pulse Resp B/P (MAP) Pulse Ox O2 Delivery O2 Flow Rate FiO2 11/20/20 00:00 87 15 111/70 (84) 92 Nasal Cannula 3.00 11/19/20 23:00 91 15 112/91 (98) 91 Nasal Cannula 3.00 11/19/20 22:15 100 13 111/85 (94) 92 Nasal Cannula 3.00 11/19/20 21:00 101 16 114/76 (89) 94 Nasal Cannula 3.00 11/19/20 20:00 98 11/19/20 20:00 115 13 102/84 (90) 95 Nasal Cannula 3.00 11/19/20 19:13 36.8 11/19/20 19:00 99 18 101/74 (83) 92 Nasal Cannula 3.00 11/19/20 19:00 99 11/19/20 18:00 112 18 120/65 (83) 92 Nasal Cannula 3.00 11/19/20 17:08 92 Room Air 11/19/20 17:00 118 33 96/74 (81) 89 Nasal Cannula 3.00 11/19/20 16:45 116 15 125/81 (98) 86 11/19/20 16:30 121 24 119/98 (107) 92 11/19/20 16:15 84 18 106/71 (93) 95 11/19/20 16:00 86 11 99/64 (70) 94 Nasal Cannula 3.00 11/19/20 15:45 98 12 93/66 (77) 93 11/19/20 15:30 91 16 109/68 (75) 92 11/19/20 15:26 36.8 11/19/20 15:15 92 15 104/76 (85) 91 Nasal Cannula 3.00 11/19/20 15:00 106 17 134/77 (86) 88 Nasal Cannula 3.00 11/19/20 14:45 122 124/77 (92) Nasal Cannula 3.00 11/19/20 14:42 115 132/97 (110) Nasal Cannula 3.00 11/19/20 14:40 36.2 22 132/84 (100) 94 Room Air 11/19/20 14:40 Room Air 11/19/20 14:30 Room Air 11/19/20 14:30 22 128/85 (99) 95 Room Air 11/19/20 14:22 Room Air 11/19/20 14:20 18 128/81 (97) 99 Room Air 11/19/20 14:15 OxyMask 3 11/19/20 14:13 OxyMask 6 11/19/20 14:10 18 143/83 (103) 100 OxyMask 6 11/19/20 14:05 OxyMask 6 11/19/20 14:00 18 138/87 (104) 97 OxyMask 6 11/19/20 13:53 37.5 16 114/83 (93) 98 OxyMask 6 11/19/20 13:53 OxyMask 6 11/19/20 13:00 120 11/19/20 12:01 36.4 104 22 117/78 Nasal Cannula 3.00 11/19/20 11:16 36.8 11/19/20 11:07 36.7 101 22 124/88 98 Nasal Cannula 3.00 11/19/20 11:00 103 34 124/88 (100) 97 Nasal Cannula 3.00 11/19/20 10:56 36.6 100 20 107/78 97 Nasal Cannula 3.00 11/19/20 10:00 111 23 155/83 (107) 97 Nasal Cannula 3.00 11/19/20 09:00 87 25 120/73 (89) 95 Nasal Cannula 3.00 11/19/20 08:00 87 22 137/108 (123) 95 Nasal Cannula 3.00 11/19/20 07:55 98 Nasal Cannula 3.00 11/19/20 07:45 99 19 132/74 (86) 97 11/19/20 07:35 36.5 11/19/20 07:30 97 8 122/84 (98) 98 11/19/20 07:15 99 19 125/74 (90) 98 11/19/20 07:00 95 11/19/20 07:00 88 15 115/70 (109) 98 Nasal Cannula 3.00 11/19/20 06:45 88 17 114/65 (81) 98 11/19/20 06:30 92 18 113/69 (74) 97 11/19/20 06:15 89 16 113/78 (96) 98 11/19/20 06:00 93 17 113/78 (90) 99 Nasal Cannula 3.00 11/19/20 05:00 96 21 124/75 (91) 99 Nasal Cannula 3.00 I & O 11/20/20 07:00 Intake Total 380 ml Output Total 725 ml Balance -345 ml Height & Weight Height: 6'2.00" Weight: 163lbs. 2.0oz. [id number]; 18.92 BMI Method:Stated General Appearance: No Apparent Distress, WD/WN HEENT: PERRL/EOMI, TMs Normal, Normal ENT Inspection, Pharynx Normal Neck: Full Range of Motion, Normal Inspection, Non Tender, Supple Respiratory: Chest Non Tender, Lungs Clear, Normal Breath Sounds, No Accessory Muscle Use, No Respiratory Distress Cardiovascular: Regular Rate, Rhythm, No Edema, No Gallop Capillary Refill: Less Than 3 Seconds Peripheral Pulses: 2+ Radial Pulses (R), 2+ Radial Pulses (L) Gastrointestinal: normal bowel sounds, non tender, soft Extremity: Normal Capillary Refill, Normal Inspection, Normal Range of Motion Neurologic/Psychiatric: Alert, Oriented x3, No Motor/Sensory Deficits Skin: Normal Color, Warm/Dry Lymphatic: No Adenopathy Results Lab Laboratory Tests 11/18/20 10:05 11/19/20 02:50 11/20/20 02:55 Assessment/Plan Assessment/Plan s/p Fall with left hip fracture -Ortho following -Possible surgery today Hypoxia = resolved -3 liters NC -- Now on RA Afib RVR - now controlled -Off cardizem gtt -Eiquis is currently held -Cardiology following Chronic thrombocytopenia -Monitor CHF with EF 15-20% diffuse hypokinesis, mod to severe MR and TR, RVSP 25 mmHg HCIDI GRANGER DO Nov 20, 2020 04:50
--- NOTE | 2020-11-20 07:31 | NUR ---
attempted to call report to 4th floor RN at this time.
--- NOTE | 2020-11-20 08:00 | NUR ---
PATIENT TRANSFERRED DOWN TO ROOM 405 AT THIS TIME WITHOUT INCIDENT. PERSONAL BELONGINGS SENT WITH PATIENT. REPORT GIVEN TO AISLINN RUSSO, TO ASSUME CARE OF PATIENT AT THIS TIME.
--- NOTE | 2020-11-20 08:38 | Diagnostic Imaging Report ---
INDICATION: Atrial fibrillation with rapid ventricular response. Hypoxia. TECHNIQUE: Single view chest 3:22 AM. CORRELATION STUDY: 11/19/2020 FINDINGS: Cardiac enlargement is stable. Vasculature is improved and near normal at follow-up. Bilateral pleural effusions with bibasilar opacities likely atelectasis and/or edema do persist but overall are improved as well. Biapical pleural thickening. Prior multilevel kyphoplasty changes. IMPRESSION: 1. Stable severity cardiac enlargement. However, the overall severity of vascular congestion has diminished and improved. There has also been decrease in size of bilateral pleural effusions and associated atelectasis. Dictated by: Dictated on workstation # [id number]
[2020-11-20] MEDS: SENNA W/DOCUSATE (SENOKOT S) TABLET PO SCH ×2 (10:04→20:13)
--- NOTE | 2020-11-20 10:26 | Progress Note - Ortho ---
Progress Note Subjective Date of Exam 11/20/20 Chief Complaint POD#1 femoral neck system fixation impacted subcapital fracture left hip HPI/Events since last exam Mr. Prince is 1 day postop surgery left hip. He's having some mild pain but nothing significant. No other complaints. His thinks that his ankles are swollen so he wanted me to check his ankles Review of Systems Reviewed and no additions or changes Allergies: Coded Allergies: Ojcbtte-Dcx-Hkn Reductase Inhibitor (Unverified Allergy, Unknown, 03/12/19) codeine (Unverified Adverse Reaction, Mild, Altered taste, 02/13/15) Uncoded Allergies: beta blockers (Adverse Reaction, Severe, severe bradycardia, 04/07/20) Home Meds Reported Medications Diltiazem HCl (Cartia Xt) 120 Mg Cap.er.24h, 240 MG PO HS, CAP TAKES 2 (120MG) CAPS 11/19/20 Diltiazem HCl (Cartia Xt) 120 Mg Cap.er.24h, 120 MG PO DAILY, CAP 11/19/20 Docusate Sodium (Stool Softener) 100 Mg Capsule, 200 MG PO 1200,2100, CAP 04/07/20 Multivit-Min/FA/Lycopen/Lutein (Centravites 50 Plus Tablet) 1 Each Tablet, 1 EACH PO 1200, TAB 04/07/20 Aspirin (Aspirin EC) 81 Mg Tablet.dr, 81 MG PO 1200, TAB 03/11/19 Apixaban (Eliquis) 5 Mg Tablet, 5 MG PO BID, TAB 10/23/17 Discontinued Scripts Digoxin (Digoxin) 250 Mcg Tablet, 250 MCG PO DAILY, #30 TAB 3 Refills Prov:CAITLYN SANTILLAN BLOCK PILER 04/08/20 Potassium Chloride (Potassium Chloride) 20 Meq Tablet.er, 20 MEQ PO DAILY, #30 TAB 3 Refills Prov:CAITLYN SANTILLAN BLOCK PILER 04/08/20 Diltiazem HCl (Cardizem Cd) 120 Mg Cap.er.24h, 120 MG PO DAILY, #90 CAP Two capsules in the morning and one capsule in the evening Prov:CAITLYN SANTILLAN BLOCK PILER 04/08/20 Furosemide (Lasix) 80 Mg Tablet, 80 MG PO DAILY, #30 TAB 3 Refills Prov:CAITLYN SANTILLAN BLOCK PILER 20 Spironolactone (Spironolactone) 25 Mg Tablet, 25 MG PO DAILY, #30 TAB 5 Refills Prov:CAITLYN SANTILLAN BLOCK PILER 04/08/20 Objective Exam Constitutional: [] HEENT: [] Neck: [] Cardiovascular: [] Respiratory: [] Gastrointestinal: [] Genitourinary: [] Skin: [] Back/Spine: [] Extremities: [The dressing is intact. Minimal to mild swelling left thigh. No swelling left calf. He states he has some calf tenderness but has a negative Homans. He is neurovascularly intact of lower extremities with normal sensation, good capillary refill, equal pulses and no weakness in dorsiflexion and plantarflexion of the foot and ankle] leg is in good position and equal to the opposite side. Mild pain with gentle range of motion left hip. No swelling other ankle Neurologic: [] Psychiatric: [] Hematologic/lymphatic/immunologic: [] Vital Signs Vital Signs Date Time Temp Pulse Resp B/P (MAP) Pulse Ox O2 Delivery O2 Flow Rate FiO2 11/20/20 08:00 36.8 74 20 108/73 (85) 93 Room Air 11/20/20 06:32 102 11/20/20 06:00 90 11 111/79 (90) 94 Nasal Cannula 3.00 11/20/20 05:00 97 18 111/68 (82) 94 Nasal Cannula 3.00 11/20/20 04:00 96 17 103/69 (80) 94 Nasal Cannula 3.00 11/20/20 03:00 98 9 117/72 (87) 93 Nasal Cannula 3.00 11/20/20 02:00 79 14 102/66 (78) 94 Nasal Cannula 3.00 11/20/20 01:00 84 11/20/20 01:00 84 12 104/78 (87) 93 Nasal Cannula 3.00 11/20/20 00:00 87 15 111/70 (84) 92 Nasal Cannula 3.00 11/19/20 23:00 91 15 112/91 (98) 91 Nasal Cannula 3.00 11/19/20 22:15 100 13 111/85 (94) 92 Nasal Cannula 3.00 11/19/20 21:00 101 16 114/76 (89) 94 Nasal Cannula 3.00 11/19/20 20:00 98 11/19/20 20:00 115 13 102/84 (90) 95 Nasal Cannula 3.00 11/19/20 19:13 36.8 11/19/20 19:00 99 18 101/74 (83) 92 Nasal Cannula 3.00 11/19/20 19:00 99 11/19/20 18:00 112 18 120/65 (83) 92 Nasal Cannula 3.00 11/19/20 17:08 92 Room Air 11/19/20 17:00 118 33 96/74 (81) 89 Nasal Cannula 3.00 11/19/20 16:45 116 15 125/81 (98) 86 11/19/20 16:30 121 24 119/98 (107) 92 11/19/20 16:15 84 18 106/71 (93) 95 11/19/20 16:00 86 11 99/64 (70) 94 Nasal Cannula 3.00 11/19/20 15:45 98 12 93/66 (77) 93 11/19/20 15:30 91 16 109/68 (75) 92 11/19/20 15:26 36.8 11/19/20 15:15 92 15 104/76 (85) 91 Nasal Cannula 3.00 11/19/20 15:00 106 17 134/77 (86) 88 Nasal Cannula 3.00 11/19/20 14:45 122 124/77 (92) Nasal Cannula 3.00 11/19/20 14:42 115 132/97 (110) Nasal Cannula 3.00 11/19/20 14:40 36.2 22 132/84 (100) 94 Room Air 11/19/20 14:40 Room Air 11/19/20 14:30 Room Air 11/19/20 14:30 22 128/85 (99) 95 Room Air 11/19/20 14:22 Room Air 11/19/20 14:20 18 128/81 (97) 99 Room Air 11/19/20 14:15 OxyMask 3 11/19/20 14:13 OxyMask 6 11/19/20 14:10 18 143/83 (103) 100 OxyMask 6 11/19/20 14:05 OxyMask 6 11/19/20 14:00 18 138/87 (104) 97 OxyMask 6 11/19/20 13:53 37.5 16 114/83 (93) 98 OxyMask 6 11/19/20 13:53 OxyMask 6 11/19/20 13:00 120 11/19/20 12:01 36.4 104 22 117/78 Nasal Cannula 3.00 11/19/20 11:16 36.8 11/19/20 11:07 36.7 101 22 124/88 98 Nasal Cannula 3.00 11/19/20 11:00 103 34 124/88 (100) 97 Nasal Cannula 3.00 11/19/20 10:56 36.6 100 20 107/78 97 Nasal Cannula 3.00 I & O 11/20/20 07:00 Intake Total 605 ml Output Total 975 ml Balance -370 ml Lab Results Laboratory Tests 11/20/20 02:55: Hemoglobin 11.0L, Hematocrit 33L, Phosphorus Level 3.1, Magnesium Level 1.7 Assessment and Plan Assessment Doing well first day postop Problem List Unchanged Plan Out of bed to chair as tolerated. Full weight transfer on the right leg up to partial weight on the left. Walker ambulation partial weightbearing on the left Continue to monitor hemoglobin which was 11.0 this morning Dressing change tomorrow. Everything looks good I think he could resume his Eliquis tomorrow He is presently on Lovenox for DVT prophylaxis Final Diagonsis Femoral neck fixation impacted subcapital fracture left hip Level of the visit: Level 3 Clinical Quality Measures DVT/VTE Risk/Contraindication: Risk Factor Score Per Nursin RFS Level Per Nursing on Admit: 4+=Very High Contraindications-Pharm: Other *list below* Other: SURGERY RONNELL MENJIVAR MD Nov 20, 2020 10:26
[2020-11-20] MEDS ORDERED: dilTIAZem120 MG (CARDIZEM CD) CAP PO STA (11:23)
--- NOTE | 2020-11-20 11:29 | Physical Therapy Evaluation ---
PT Evaluation-General Medical Diagnosis Admission Date Nov 18, 2020 at 13:15 Medical Diagnosis: Impacted subcapital fracture left hip Onset Date: Nov 19, 2020 Therapy Diagnosis Therapy Diagnosis: impaired mobility, strength, endurance Height/Weight Height (Feet): 6 Height (Inches): 2.00 Weight (Pounds): 163 Weight (Ounces): 2.0 Precautions Precautions/Isolations: Fall Prevention, Standard Precautions Weight Bear Status Right Lower Extremity: Right Full Weight Bearing Left Lower Extremity: Left Partial Weight Bearing Referral Physician: Marisabel Reason for Referral: Evaluation/Treatment Medical History Additional Medical History Past Medical History Surgeries: Coronary Stent, Orthopedic Cardiac: Atrial Fibrillation, Deep Vein Thrombosis, Heart Attack, High Cholesterol, Hypertension Neurological: Vertigo Reproductive: No Genitourinary: Benign Prostatic Hyperpl Gastrointestinal: Polyps Musculoskeletal: Chronic Back Pain Psychosocial: Anxiety Reviewed History: Yes Social History Home: Single Level Current Living Status: Spouse Entry Into Home: Stairs With Railing PT Steps Into Home: 2 Prior Prior Level of Function SCALE: Activities may be completed with or without assistive devices. 0-Haivnrfltk-kxblayq completes the activity by him/herself with no assistance from a helper. 5-Set-up or Clean-up Assistance-helper sets up or cleans up; patient completes activity. Malcolm assists only prior to or following the activity. 4-Supervision or Touching Assistance-helper provides verbal cues and/or touching/steadying and/or contact guard assistance as patient completes activity. Assistance may be provided throughout the activity or intermittently. 3-Partial/Moderate Assistance-helper does LESS THAN HALF the effort. Malcolm lifts, holds or supports trunk or limbs, but provides less than half the effort. 2-Substantial/Maximal Assistance-helper does MORE THAN HALF the effort. Malcolm lifts or holds trunk or limbs and provides more than half the effort. 2-Jfnarxmih-bbryfa does ALL the effort. Patient does none of the effort to complete the activity. Or, the assistance of 2 or more helpers is required for the patient to complete the activity. If activity was not attempted, code reason: 7-Patient Refused. 9-Not Applicable-not attempted and the patient did not perform the activity before the current illness, exacerbation or injury. 10-Not Attempted due to Environmental Limitations-(lack of equipment, weather restraints, etc.). 88-Not Attempted due to Medical Conditions or Safety Concerns. Bed Mobility: 6 Transfers (B,C,W/C): 6 Gait: 6 Stairs: 6 Indoor Mobility (Ambulation): Independent Stairs: Independent PT Evaluation-Current Subjective Patient in bed pre tx, agrees to PT, has 10/10 pain in left knee, no pain in left hip. Pt/Family Goals to be independent at home Objective Patient Orientation: Person, Place, Situation Attachments: Addison Catheter, IV Sensory Hearing: Functional Sensation Right Lower Extremit: Intact Sensation Left Lower Extremity: Intact Transfers Roll Left to Right (QC): 3 Sit to Lying (QC): 2 Lying to Sitting/Side of Bed(Q: 3 Sit to Stand (QC): 3 Chair/Bhj-zb-Eievc Xfer(QC): 3 Patient performs supine to sit with mod assist, sit to stand min assist, transfer with min assist, he is able to take several steps to recliner, he is compliant with his weight bearing status, however his movement is extremely slow and he is very anxious. Balance Sitting Static: Fair Sitting Dynamic: Fair Standing Static: Fair Standing Dynamic: Fair Treatment seated LLE exercise AP x10 Assessment/Needs Patient has impaired mobility, strength, endurance. He has severe left knee pain, very slow with movement, very anxious. Rehab Potential: Fair PT Pan Cleaner Goals Jail Goals PT Pan Cleaner Goals Time Frame: Nov 27, 2020 Roll Left & Right (QC): 4 Sit to Lying (QC): 4 Lying-Sitting on Side/Bed(QC): 4 Sit to Stand (QC): 4 Chair/Nmi-qc-Evcai Xfer(QC): 4 Walk 10 feet (QC): 4 Walk 50ft with 2 Turns (QC): 4 PT Plan Problem List Problem List: Activity Tolerance, Functional Strength, Safety, Balance, Gait, Transfer, Bed Mobility, ROM Treatment/Plan Treatment Plan: Continue Plan of Care Treatment Plan: Bed Mobility, Education, Functional Activity Virgilio, Functional Strength, Group Therapy, Gait, Safety, Therapeutic Exercise, Transfers Treatment Duration: Nov 27, 2020 Frequency: 11 times per week Estimated Hrs Per Day: .25 hour per day Patient and/or Family Agrees t: Yes Safety Risks/Education Patient Education: Transfer Techniques, Reviewed Precautions, Correct Positioning, Safety Issues Teaching Recipient: Patient Teaching Methods: Demonstration, Discussion Response to Teaching: Reinforcement Needed Discharge Recommendations Plan Patient will perform bed mobility and transfer training, balance and endurance training, functional strengthening, stair training, gait training, and education, to improve functional mobility and independence at home. Therapy Discharge Recommendati: Scheduled Assistance, Home & Family Time/GCodes Time In: 1032 Time Out: 1051 Total Billed Treatment Time: 19 Total Billed Treatment 1 visit SHEELA 19' RAVEN LOAIZA PT Nov 20, 2020 11:28
--- NOTE | 2020-11-20 11:35 | Physical Therapy Daily Note ---
PT Daily Note-Current Subjective Patient in recliner pre tx, agrees to PT, still has 10/10 pain in left knee. Nursing needs patient to get back to bed to perform an EKG. Patient agrees to perform his second tx now. Appearance Paitent in bed post tx with nurse call, phone, tray, nursing in room. Mental Status Patient Orientation: Person, Place, Situation Attachments: Addison Catheter, IV Transfers SCALE: Activities may be completed with or without assistive devices. 7-Ebqnxxvlug-leewjws completes the activity by him/herself with no assistance from a helper. 5-Set-up or Clean-up Assistance-helper sets up or cleans up; patient completes activity. R[place] assists only prior to or following the activity. 4-Supervision or Touching Assistance-helper provides verbal cues and/or touching/steadying and/or contact guard assistance as patient completes activity. Assistance may be provided throughout the activity or intermittently. 3-Partial/Moderate Assistance-helper does LESS THAN HALF the effort. Riga lifts, holds or supports trunk or limbs, but provides less than half the effort. 2-Substantial/Maximal Assistance-helper does MORE THAN HALF the effort. R[place] lifts or holds trunk or limbs and provides more than half the effort. 5-Ogtomdryq-ixcjvt does ALL the effort. Patient does none of the effort to complete the activity. Or, the assistance of 2 or more helpers is required for the patient to complete the activity. If activity was not attempted, code reason: 7-Patient Refused. 9-Not Applicable-not attempted and the patient did not perform the activity before the current illness, exacerbation or injury. 10-Not Attempted due to Environmental Limitations-(lack of equipment, weather restraints, etc.). 88-Not Attempted due to Medical Conditions or Safety Concerns. Roll Left & Right (QC): 2 Sit to Lying (QC): 2 Sit to Stand (QC): 3 Chair/Hrh-pe-Vmznr Xfer(QC): 3 Max assist for sit to supine, still extremely slow movement but he only needs min assist for sit to stand and transfer Weight Bearing Right Lower Extremity: Right Full Weight Bearing Left Lower Extremity: Left Partial Weight Bearing Treatments transfers, bed mobility Assessment Current Status: Fair Progress very stiff with supine to sit PT Caterer'S Aide Goals Caterer'S Aide Goals PT Caterer'S Aide Goals Time Frame: Nov 27, 2020 Roll Left & Right (QC): 4 Sit to Lying (QC): 4 Lying-Sitting on Side/Bed(QC): 4 Sit to Stand (QC): 4 Chair/Yvj-je-Plqpw Xfer(QC): 4 Walk 10 feet (QC): 4 Walk 50ft with 2 Turns (QC): 4 PT Plan Problem List Problem List: Activity Tolerance, Functional Strength, Safety, Balance, Gait, Transfer, Bed Mobility, ROM Treatment/Plan Treatment Plan: Continue Plan of Care Treatment Plan: Bed Mobility, Education, Functional Activity Virgilio, Functional Strength, Group Therapy, Gait, Safety, Therapeutic Exercise, Transfers Treatment Duration: Nov 27, 2020 Frequency: 11 times per week Estimated Hrs Per Day: .25 hour per day Patient and/or Family Agrees t: Yes Safety Risks/Education Patient Education: Transfer Techniques, Correct Positioning, Safety Issues Teaching Recipient: Patient Teaching Methods: Demonstration, Discussion Response to Teaching: Reinforcement Needed Time/GCodes Time In: 1102 Time Out: 1112 Total Billed Treatment Time: 10 Total Billed Treatment 1 visit FA RAVEN TALBERT PT Nov 20, 2020 11:35
--- NOTE | 2020-11-20 12:08 | Progress Note - Hospitalist ---
Subjective HPI/CC On Admission Date Seen by Provider: Nov 20, 2020 Time Seen by Provider: 12:00 CC: Left hip fracture with AF w/RVR HPI:: Tis is an 85yoWM who presented to the ER after a fall and found to have a lift hip fracture but AF w/RVR. Dr Petit consulted along with Dr Winters and patient was placed on Cardizem drip. Patient is very frail and weak and high risk for decompensation. Patient told me he is aware of the need for repair in order to ambulate and he misses his of 61 years. Subjective/Events-last exam Had AF w/RVR this am Pain controlled No falls O2 maintained Checked meds Hgb stable Review of Systems General: Fatigue, Malaise Pulmonary: Dyspnea Objective Exam Vital Signs Vital Signs Date Time Temp Pulse Resp B/P (MAP) Pulse Ox O2 Delivery O2 Flow Rate FiO2 11/20/20 16:53 36.7 95 18 115/71 (86) 96 Room Air 11/20/20 08:00 3.00 Capillary Refill : Less Than 3 SecondsLess Than 3 Seconds General Appearance: No Apparent Distress, WD/WN, Anxious, Chronically ill, Thin Respiratory: Chest Non Tender, Lungs Clear, Normal Breath Sounds, No Accessory Muscle Use, No Respiratory Distress Cardiovascular: No Edema, No Gallop, No JVD, No Murmur, Normal Peripheral Pulses, Irregularly Irregular, Tachycardia Results/Procedures Lab Laboratory Tests 11/20/20 02:55 Patient resulted labs reviewed. Assessment/Plan Assessment and Plan Assess & Plan/Chief Complaint Assessment: Left hip fracture AF w/RVR CAD HTN HLP Plan: Hip repair Cardiology Monitor hgb 11/20/20: Pain control Monitor AF Clinical Quality Measures DVT/VTE Risk/Contraindication: Risk Factor Score Per Nursin RFS Level Per Nursing on Admit: 4+=Very High Contraindications-Pharm: Other *list below* Other: SURGERY MATHEW LINCOLN DO Nov 20, 2020 12:08
--- NOTE | 2020-11-20 14:15 | Occupational Therapy Eval ---
OT Evaluation-General/PLF Medical Diagnosis Admission Date Nov 18, 2020 at 13:15 Medical Diagnosis: Impacted subcapital fracture left hip Onset Date: Nov 19, 2020 Therapy Diagnosis Therapy Diagnosis: Decreased ADL status: L hip fx with fixation Height/Weight Height (Feet): 6 Height (Inches): 2.00 Weight (Pounds): 163 Weight (Ounces): 2.0 Precautions Precautions/Isolations: Fall Prevention, Standard Precautions Weight Bear Status Weight Bearing Restriction: Partial Weight Bearing Location Restriction: L LE Referral Physician: Marisabel Referral Reason: Activity Tolerance, Self Care, Evaluation/Treatment, Strengthening/ROM Medical History Additional Medical History a fib, cardiac stent, DVT, AR, HTN, high chol, CBP, anxiety Current History Fell at home, backward and hit ribs/ hip on L side, screw fixation of L hip 11/19 Reviewed History: Yes Social History Home: Single Level Current Living Status: Spouse Entry Into Home: Stairs With Railing Steps Into Home: 2 ADL-Prior Level of Function SCALE: Activities may be completed with or without assistive devices. 2-Hsvrgjketl-zbpzyxa completes the activity by him/herself with no assistance from a helper. 5-Set-up or Clean-up Assistance-helper sets up or cleans up; patient completes activity. Etoile assists only prior to or following the activity. 4-Supervision or Touching Assistance-helper provides verbal cues and/or touching/steadying and/or contact guard assistance as patient completes activity. Assistance may be provided throughout the activity or intermittently. 3-Partial/Moderate Assistance-helper does LESS THAN HALF the effort. Etoile lifts, holds or supports trunk or limbs, but provides less than half the effort. 2-Substantial/Maximal Assistance-helper does MORE THAN HALF the effort. Etoile lifts or holds trunk or limbs and provides more than half the effort. 2-Wxjohmhpn-oiwgqp does ALL the effort. Patient does none of the effort to complete the activity. Or, the assistance of 2 or more helpers is required for the patient to complete the activity. If activity was not attempted, code reason: 7-Patient Refused. 9-Not Applicable-not attempted and the patient did not perform the activity before the current illness, exacerbation or injury. 10-Not Attempted due to Environmental Limitations-(lack of equipment, weather restraints, etc.). 88-Not Attempted due to Medical Conditions or Safety Concerns. ADL PLOF Comments Pt states IND with use of walker intermittently and IND with showering/ dressing tasks. Pt drives short distances, though drives the further distance. Self Care: Independent Functional Cognition: Independent DME/Equipment: Grab Bars, Tall Toilet, Tub/Shower Occupation: retired [employer] Self: Yes OT Current Status Subjective Pt AxO sitting upright in bed. rehabilitation therapy aide present. Pt agrees to tx. Pt states 8/10 pain in L hip. Pt's nurse comes in during tx, pt agrees to pain medication. Mental Status/Objective Patient Orientation: Person, Place, Situation Attachments: Addison Catheter, IV Current Glasses/Contacts: Yes Hearing Aids: No Dentures/Partials: No Hand Dominance: Right Upper Extremity ROM WFL BUE Upper Extremity Coordination WFL BUE Upper Extremity Sensation WFL BUE per pt. Upper Extremity Strength WFL (4/5) Edema: none noted. ADL-Treatment Eating (QC): 6 Oral Hygiene (QC): 6 ( per pt and clinical judgment. ) Lower Body Dressing (QC): 2 (per clinical judgment pt will require assist threading BLE) On/Off Footwear (QC): 2 (per clinical judgment pt will require assist threading BLE) Other Treatments Pt educated on OT role/ purpose. Pt upright in bed. Agrees to EOB activities. Completes questioning during 15 minute task to reach EOB due to pain. Pt's LLE is held off of bed as pt complete AROM toward EOB. Pt requires increased time, and min A for bed mob to EOB. Pt in hole upon reaching EOB, pt is educated on this and OT asks to lower HOB. Pt denies. Pt completes drinking task with straw during medication management with IND. Pt denies getting to commode or to chair. Pt returns to bed with increased time/ slow and steady. Pt's QC scores posted above per clinical judgment.Pt positioned in bed, all needs met, call light in reach. Education OT Patient Education: Correct positioning, Purpose of tx/functional activities, Reviewed precautions, Safety issues, Transfer techniques Teaching Recipient: Patient Teaching Methods: Demonstration, Discussion Response to Teaching: Verbalize Understanding, Return Demonstration, Reinforcement Needed OT Usp Goals Extrusion Bender Goals Time Frame: Nov 27, 2020 Eating (QC): 6 Oral Hygiene (QC): 6 Toileting Hygiene (QC): 4 Shower/Bathe Self (QC): 5 Upper Body Dressing (QC): 6 Lower Body Dressing (QC): 4 On/Off Footwear (QC): 5 Additional Goals: 1-Demonstrate ADL Tasks, 2-Verbalize Understanding, 3- ImproveStrength/Virgilio 1=Demonstrate adherence to instructed precautions during ADL tasks. 2=Patient will verbalize/demonstrate understanding of assistive devices/modif ications for ADL. 3=Patient will improve strength/tolerance for activity to enable patient to perform ADL's. OT Education/Plan Problem List/Assessment Assessment: Decreased Activ Tolerance, Dependent Transfers, Impaired Bed Mobility, Impaired Funct Balance, Impaired I ADL's, Impaired Self-Care Skills Discharge Recommendations Plan/Recommendations: Continue POC Therapy Discharge Recommendati: Post Acute OT Treatment Plan/Plan of Care Treatment,Training & Education: Yes Patient would benefit from OT for education, treatment and training to promote independence in ADL's, mobility, safety and/or upper extremity function for ADL' s. Plan of Care: ADL Retraining, Caregiver Training, Functional Mobility, UE Funct Exercise/Act Treatment Duration: Nov 27, 2020 Frequency: 5 times per week Rehab Potential: Fair Time/GCodes Start Time: 13:36 Stop Time: 14:05 Total Time Billed (hr/min): 29 Billed Treatment Time SHEELA Johns ADL (29) YOUNG ORTIZ OTR Nov 20, 2020 14:15
--- NOTE | 2020-11-20 14:30 | Progress Note - Cardiology ---
Cardiology SOAP Progress Note Subjective: No cp or palp or syncope or shortness of breath Some gen malaise L hip discomfort improved after surgery yesterday No n/v Objective: I&O/Vital Signs 11/20/20 11/20/20 11/20/20 11/20/20 03:00 04:00 05:00 06:00 Pulse 98 96 97 90 Resp 9 17 18 11 B/P (MAP) 117/72 (87) 103/69 (80) 111/68 (82) 111/79 (90) Pulse Ox 93 94 94 94 O2 Delivery Nasal Cannula Nasal Cannula Nasal Cannula Nasal Cannula O2 Flow Rate 3.00 3.00 3.00 3.00 11/20/20 11/20/20 11/20/20 06:32 08:00 12:00 Temp 36.8 36.6 Pulse 102 74 119 Resp 20 20 B/P (MAP) 108/73 (85) 118/85 (96) Pulse Ox 93 94 O2 Delivery Room Air Room Air 11/20/20 00:00 Intake Total 350 ml Output Total 600 ml Balance -250 ml Weight (Pounds): 163 Weight (Ounces): 2.0 Weight (Calculated Kilograms): 73.067336 Constitutional: AAO x 3, well-developed, other (thin) Respiratory: No accessory muscle use, No respiratory distress; chest expansion is symmetric, chest is bilaterally symmetric, lungs clear to auscultation Cardiovascular: irregularly irregular; No JVD; tachycardia, systolic murmur Gastrointestional: No tender; soft, round, audible bowel sounds Extremities: no lower extremity edema bilateral Neurologic/Psychiatric: other (left leg not manipulated d/t fracture, moves all other extremities) Skin: No rash on exposed areas, No ulcerations on exposed areas Results/Procedures: Labs Laboratory Tests 11/20/20 02:55: Hemoglobin 11.0L, Hematocrit 33L, Phosphorus Level 3.1, Magnesium Level 1.7 A/P: Assessment: Nonsyncopal fall leading to left hip fracture on 11-18-2020, treated with femoral neck fixation on 11/19/20 A Fib with RVR Eliquis for stroke prophylaxis 24 HR Holter of Aug 2020 showed a-fib throughout the study with av vent rate 85 bpm, no signif audeila, coupled and isolated PVC's Chronic 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 Last cath was on 05/20/14. It showed diffuse disease consisting of up to 50% stenoses in all cors. FFR across multiple mid-vessel LAD lesions was 0.92, indicating hemodynamic insignificance. There was a patent stent in mid LAD and in distal RCA. Distal RCA stent is known to be Promus [id number] placed in Aug 2012. LVEF on cath of May 2014 was 45% and LVEDP was mildly elevated Hyperlipidemia, but the patient is intolerant to statins. Postural hypotension, resolved following cessation of therapy with RYAN inhibi tors and Terazosin. Multiple medication intolerances. See below. Intolerance to beta-blockers on account of symptomatic bradycardia and hypotension. Intolerance to RYAN inhibitors on account of postural hypotension Intolerance to ARBs on account of dizziness. Intolerance to warfarin due to nonspecific symptoms and fear of side effects - currently on apixaban Mild carotid arterial disease (less than 40%) per carotid ultrasonography of May 2016. Chronic moderate vertigo. Chronic low back pain, s/p low low back kyphoplasty, but back pain has persisted Plan: Increase calcium channel charleen in effort to better control heart rate Crrently on enoxaparin for DVT prophylaxis. Please resume full anticoag as soon as possible and safe after surgery\ Monitor labs UZIEL SHEEHAN MD FACP [facility]S Nov 20, 2020 14:30
--- NOTE | 2020-11-20 15:39 | Anesthesia-General Post-Op ---
General Patient Condition Mental Status/LOC: Same as Preop Cardiovascular: Satisfactory Nausea/Vomiting: Absent Respiratory: Satisfactory Pain: Controlled Complications: Absent Post Op Complications Complications None Follow Up Care/Instructions Patient Instructions None needed. Anesthesia/Patient Condition Patient Condition Patient is doing well, no complaints, stable vital signs, no apparent adverse anesthesia problems. No complications reported per nursing. FALGUNI GOMEZ CRNA Nov 20, 2020 15:39
--- NOTE | 2020-11-20 16:44 | NUR ---
Call from tele nurse indicating patient's HR was in the 140-170's. EKG completed showing pt in afib with RVR, pt asymtomatic, Dr Epperson contacted and order for additional Cardizem given. HR increases when patient working on getting out of bed.
[2020-11-20] MEDS: ENOXAPARIN 30 MG/0.3 ML (LOVENOX) SYR SC SCH (20:13)
[2020-11-21 00:05] VITALS: BP 125/75
[2020-11-21] MEDS: HYDROcodone/APAP 10 MG/325 MG (LORTAB) TAB PO PRN ×4 (00:13→23:50)
[2020-11-21] MEDS: LACTATED RINGERS 1,000 ML IV SCH ×2 (04:33→05:05)
[2020-11-21 06:22] LABS: BASOPHILS % (AUTO) 0 % (0-10); EOSINOPHILS % (AUTO) 0 % (0-10); HEMATOCRIT 32 % (40-54); HEMOGLOBIN 10.9 g/dL (13.3-17.7); LYMPHOCYTES # (AUTO) 1.8 10^3/uL (1.0-4.0); LYMPHOCYTES % (AUTO) 19 % (12-44); MEAN CORPUSCULAR HEMOGLOBIN 32 pg (25-34); MEAN CORPUSCULAR HGB CONC 34 g/dL (32-36); MEAN CORPUSCULAR VOLUME 96 fL (80-99); MEAN PLATELET VOLUME 12.9 fL (9.0-12.2); MONOCYTES # (AUTO) 0.7 10^3/uL (0.0-1.0); MONOCYTES % (AUTO) 8 % (0-12); NEUTROPHILS # (AUTO) 6.6 10^3/uL (1.8-7.8); NEUTROPHILS % (AUTO) 72 % (42-75); PLATELET COUNT 97 10^3/uL (130-400); WHITE BLOOD COUNT 9.1 10^3/uL (4.3-11.0)
[2020-11-21 06:51] LABS: CHLORIDE 102 MMOL/L (98-107); POTASSIUM 4.2 MMOL/L (3.6-5.0); SODIUM 135 MMOL/L (135-145)
[2020-11-21 06:52] LABS: CALCIUM 8.6 MG/DL (8.5-10.1); GLUCOSE 103 MG/DL (70-105)
[2020-11-21 06:54] LABS: CARBON DIOXIDE 26 MMOL/L (21-32)
[2020-11-21 06:56] LABS: CREATININE SERUM 0.74 MG/DL (0.60-1.30); GFR ESTIMATED > 60; PHOSPHORUS 2.7 MG/DL (2.3-4.7)
[2020-11-21 06:57] LABS: BUN/CREATININE RATIO 23
[2020-11-21 06:59] LABS: MAGNESIUM 1.7 MG/DL (1.6-2.4)
--- NOTE | 2020-11-21 07:18 | Progress Note - Hospitalist ---
Subjective HPI/CC On Admission Date Seen by Provider: Nov 21, 2020 Time Seen by Provider: 10:30 CC: Left hip fracture with AF w/RVR HPI:: Tis is an 85yoWM who presented to the ER after a fall and found to have a lift hip fracture but AF w/RVR. Dr Petit consulted along with Dr Winters and patient was placed on Cardizem drip. Patient is very frail and weak and high risk for decompensation. Patient told me he is aware of the need for repair in order to ambulate and he misses his of 61 years. Subjective/Events-last exam Patient doing well Hgb 10.9 No BM yet so ordered more meds No confusion Addison in place AF noted Review of Systems Musculoskeletal: leg pain Objective Exam Vital Signs Vital Signs Date Time Temp Pulse Resp B/P (MAP) Pulse Ox O2 Delivery O2 Flow Rate FiO2 11/22/20 03:48 36.1 62 18 112/53 (72) 98 Room Air 11/21/20 08:00 3.00 Capillary Refill : Less Than 3 SecondsLess Than 3 Seconds General Appearance: No Apparent Distress, WD/WN, Chronically ill Respiratory: Chest Non Tender, Lungs Clear, Normal Breath Sounds, No Accessory Muscle Use, No Respiratory Distress Cardiovascular: No Edema, No Gallop, No JVD, No Murmur, Normal Peripheral Pulses, Irregularly Irregular Neurologic/Psychiatric: Alert, Oriented x3, No Motor/Sensory Deficits, Normal Mood/Affect Results/Procedures Lab Laboratory Tests 11/22/20 04:35 Patient resulted labs reviewed. Assessment/Plan Assessment and Plan Assess & Plan/Chief Complaint Assessment: Left hip fracture AF w/RVR CAD HTN HLP Constipation 11/21/20 Plan: Hip repair Cardiology Monitor hgb 11/20/20: Pain control Monitor AF 11/21/20: Monitor AF Appreciate Dr Winters Addison cath BM regimen Clinical Quality Measures DVT/VTE Risk/Contraindication: Risk Factor Score Per Nursin RFS Level Per Nursing on Admit: 4+=Very High Contraindications-Pharm: Other *list below* Other: SURGERY MATHEW LINCOLN DO Nov 21, 2020 07:18
[2020-11-21 08:00] VITALS: BP 123/75
[2020-11-21] MEDS: SENNA W/DOCUSATE (SENOKOT S) TABLET PO SCH ×2 (09:39→20:21)
--- NOTE | 2020-11-21 10:10 | Physical Therapy Daily Note ---
PT Daily Note-Current Subjective Patient in bed pre tx, agrees to PT, has 8/10 pain in left leg. Appearance Patient in recliner post tx with nurse call, phone, tray, all needs met. Mental Status Patient Orientation: Person, Place, Situation Attachments: Addison Catheter, IV Transfers SCALE: Activities may be completed with or without assistive devices. 0-Gyfliisufu-twhnyag completes the activity by him/herself with no assistance from a helper. 5-Set-up or Clean-up Assistance-helper sets up or cleans up; patient completes activity. [place] assists only prior to or following the activity. 4-Supervision or Touching Assistance-helper provides verbal cues and/or touching/steadying and/or contact guard assistance as patient completes activity. Assistance may be provided throughout the activity or intermittently. 3-Partial/Moderate Assistance-helper does LESS THAN HALF the effort. [place] lifts, holds or supports trunk or limbs, but provides less than half the effort. 2-Substantial/Maximal Assistance-helper does MORE THAN HALF the effort. [place] lifts or holds trunk or limbs and provides more than half the effort. 1-Quffktkde-rgmgaq does ALL the effort. Patient does none of the effort to complete the activity. Or, the assistance of 2 or more helpers is required for the patient to complete the activity. If activity was not attempted, code reason: 7-Patient Refused. 9-Not Applicable-not attempted and the patient did not perform the activity before the current illness, exacerbation or injury. 10-Not Attempted due to Environmental Limitations-(lack of equipment, weather restraints, etc.). 88-Not Attempted due to Medical Conditions or Safety Concerns. Roll Left & Right (QC): 3 Lying to Sitting/Side of Bed(Q: 3 Sit to Stand (QC): 3 Chair/Jmw-so-Jmmdq Xfer(QC): 3 very slow due to pain, takes about 10 min to get from supine to sitting Weight Bearing Right Lower Extremity: Right Full Weight Bearing Left Lower Extremity: Left Partial Weight Bearing Gait Training Distance: 5' Gait Persons Needed: 1 Gait Assistive Device: FWW slow, scoots his feet across the floor with his toes, he seems to be compliant with his PWB on left leg Exercises Seated Therapy Exercises: Ankle pumps, Long arc quads (x10) Seated Reps: 20 Treatments bed mobility and transfers, LE exercise, ambulation Assessment Current Status: Fair Progress some progress but very slow PT Half-Way Goals Tailor Apprentice Goals PT Tailor Apprentice Goals Time Frame: Nov 27, 2020 Roll Left & Right (QC): 4 Sit to Lying (QC): 4 Lying-Sitting on Side/Bed(QC): 4 Sit to Stand (QC): 4 Chair/Vyb-yo-Ttyji Xfer(QC): 4 Walk 10 feet (QC): 4 Walk 50ft with 2 Turns (QC): 4 PT Plan Problem List Problem List: Activity Tolerance, Functional Strength, Safety, Balance, Gait, Transfer, Bed Mobility, ROM Treatment/Plan Treatment Plan: Continue Plan of Care Treatment Plan: Bed Mobility, Education, Functional Activity Virgilio, Functional Strength, Group Therapy, Gait, Safety, Therapeutic Exercise, Transfers Treatment Duration: Nov 27, 2020 Frequency: 11 times per week Estimated Hrs Per Day: .25 hour per day Patient and/or Family Agrees t: Yes Safety Risks/Education Patient Education: Gait Training, Transfer Techniques, Correct Positioning, Safety Issues Teaching Recipient: Patient Teaching Methods: Demonstration, Discussion Response to Teaching: Reinforcement Needed Time/GCodes Time In: 911 Time Out: 932 Total Billed Treatment Time: 21 Total Billed Treatment 1 visit FA 21' RAVEN LOAIZA PT Nov 21, 2020 10:10
[2020-11-21] MEDS ORDERED: BISACODYL 10 MG SUPP (DULCOLAX) PR ONE (11:30)
[2020-11-21] MEDS ORDERED: LACTULOSE SYRUP 10GM/15ML (ENULOSE) 30ML UDC PO ONE (11:30)
--- NOTE | 2020-11-21 12:20 | Progress Note - Cardiology ---
Cardiology SOAP Progress Note Subjective: No cp or palp or syncope or shortness of breath Mild L leg discomfort since surgery No n/v/d Objective: I&O/Vital Signs 11/21/20 11/21/20 11/21/20 11/21/20 01:00 07:00 08:00 09:40 Temp 36.5 36.5 Pulse 91 111 101 Resp 20 B/P (MAP) 123/75 (91) Pulse Ox 96 O2 Delivery Room Air 11/21/20 00:00 Intake Total 1680 ml Output Total 750 ml Balance 930 ml Weight (Pounds): 163 Weight (Ounces): 2.0 Weight (Calculated Kilograms): 73.464662 Constitutional: AAO x 3, well-developed, other (thin) Respiratory: No accessory muscle use, No respiratory distress; chest expansion is symmetric, chest is bilaterally symmetric, lungs clear to auscultation Cardiovascular: irregularly irregular; No JVD; tachycardia, systolic murmur Gastrointestional: No tender; soft, round, audible bowel sounds Extremities: no lower extremity edema bilateral Neurologic/Psychiatric: other (left leg not manipulated d/t fracture, moves all other extremities) Skin: No rash on exposed areas, No ulcerations on exposed areas Results/Procedures: Labs Laboratory Tests 11/21/20 05:32: White Blood Count 9.1, Red Blood Count 3.37L, Hemoglobin 10.9L, Hematocrit 32L, Mean Corpuscular Volume 96, Mean Corpuscular Hemoglobin 32, Mean Corpuscular Hemoglobin Concent 34, Red Cell Distribution Width 14.6H, Platelet Count 97L, Mean Platelet Volume 12.9H, Immature Granulocyte % (Auto) 1, Neutrophils (%) (Auto) 72, Lymphocytes (%) (Auto) 19, Monocytes (%) (Auto) 8, Eosinophils (%) (Auto) 0, Basophils (%) (Auto) 0, Neutrophils # (Auto) 6.6, Lymphocytes # (Auto) 1.8, Monocytes # (Auto) 0.7, Eosinophils # (Auto) 0.0, Basophils # (Auto) 0.0, Immature Granulocyte # (Auto) 0.1, Sodium Level 135, Potassium Level 4.2, Chloride Level 102, Carbon Dioxide Level 26, Anion Gap 7, Blood Urea Nitrogen 17, Creatinine 0.74, Estimat Glomerular Filtration Rate > 60, BUN/Creatinine Ratio 23, Glucose Level 103, Calcium Level 8.6, Phosphorus Level 2.7, Magnesium Level 1.7 Laboratory Tests 11/20/20 02:55 11/21/20 05:32 A/P: Assessment: Nonsyncopal fall leading to left hip fracture on 11-18-2020, treated with femoral neck fixation on 11/19/20 A Fib with RVR. Long-acting dilt for rate control. Eliquis for stroke prophylaxis (currently being held by the [facility]; pt on low-dose en oxaparin) 24 HR Holter of Aug 2020 showed a-fib throughout the study with av vent rate 85 bpm, no signif audelia, coupled and isolated PVC's Chronic 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 Last cath was on 05/20/14. It showed diffuse disease co nsisting of up to 50% stenoses in all cors. FFR across multiple mid-vessel LAD lesions was 0.92, indicating hemodynamic insignificance. There was a patent stent in mid LAD and in distal RCA. Distal RCA stent is known to be Promus [id number] placed in Aug 2012. LVEF on cath of May 2014 was 45% and LVEDP was mildly elevated Hyperlipidemia, but the patient is intolerant to statins. Postural hypotension, resolved following cessation of therapy with RYAN inhibitors and Terazosin. Multiple medication intolerances. See below. Intolerance to beta-blockers on account of symptomatic bradycardia and hypotension. Intolerance to RYAN inhibitors on account of postural hypotension Intolerance to ARBs on account of dizziness. Intolerance to warfarin due to nonspecific symptoms and fear of side effects - has tolerated apixaban Mild carotid arterial disease (less than 40%) per carotid ultrasonography of May 2016. Chronic moderate vertigo. Chronic low back pain, s/p low low back kyphoplasty, but back pain has persisted Plan: Continue long-acting dilt Crrently on enoxaparin for DVT prophylaxis. Please resume full anticoag as soon as possible and safe after surgery Monitor labs UZIEL SHEEHAN MD FACP [facility] CCDS Nov 21, 2020 12:20
--- NOTE | 2020-11-21 14:41 | Progress Note - Ortho ---
Progress Note Subjective Date of Exam 11/21/20 Chief Complaint POD#2 femoral neck device fixation of an impacted subcapital fracture left hip HPI/Events since last exam Mr Prince is 2 days postop left hip fracture. He's doing well. I saw him he was up seating the chair without pain. No complaints. Review of Systems Reviewed and no additions or changes Allergies: Coded Allergies: Bavfuwu-Dug-Duo Reductase Inhibitor (Unverified Allergy, Unknown, 03/12/19) codeine (Unverified Adverse Reaction, Mild, Altered taste, 02/13/15) Uncoded Allergies: beta blockers (Adverse Reaction, Severe, severe bradycardia, 04/07/20) Home Meds Reported Medications Diltiazem HCl (Cartia Xt) 120 Mg Cap.er.24h, 240 MG PO HS, CAP TAKES 2 (120MG) CAPS 11/19/20 Diltiazem HCl (Cartia Xt) 120 Mg Cap.er.24h, 120 MG PO DAILY, CAP 11/19/20 Docusate Sodium (Stool Softener) 100 Mg Capsule, 200 MG PO 1200,2100, CAP 04/07/20 Multivit-Min/FA/Lycopen/Lutein (Centravites 50 Plus Tablet) 1 Each Tablet, 1 EACH PO 1200, TAB 04/07/20 Aspirin (Aspirin EC) 81 Mg Tablet.dr, 81 MG PO 1200, TAB 03/11/19 Apixaban (Eliquis) 5 Mg Tablet, 5 MG PO BID, TAB 10/23/17 Discontinued Scripts Digoxin (Digoxin) 250 Mcg Tablet, 250 MCG PO DAILY, #30 TAB 3 Refills Prov:CAITLYN SANTILLAN TOLL RELIEF OPERATOR 04/08/20 Potassium Chloride (Potassium Chloride) 20 Meq Tablet.er, 20 MEQ PO DAILY, #30 TAB 3 Refills Prov:CAITLYN SANTILLAN TOLL RELIEF OPERATOR 20 Diltiazem HCl (Cardizem Cd) 120 Mg Cap.er.24h, 120 MG PO DAILY, #90 CAP Two capsules in the morning and one capsule in the evening Prov:CAITLYN SANTILLAN TOLL RELIEF OPERATOR 04/08/20 Furosemide (Lasix) 80 Mg Tablet, 80 MG PO DAILY, #30 TAB 3 Refills Prov:CAITLYN SANTILLAN TOLL RELIEF OPERATOR 04/08/20 Spironolactone (Spironolactone) 25 Mg Tablet, 25 MG PO DAILY, #30 TAB 5 Refills Prov:CAITLYN SANTILLAN TOLL RELIEF OPERATOR 04/08/20 Objective Exam Constitutional: [] HEENT: [] Neck: [] Cardiovascular: [] Respiratory: [] Gastrointestinal: [] Genitourinary: [] Skin: [] Back/Spine: [] Extremities: [His dressing was removed. His incision looks good without redness or drainage. The puncture sites from the guidepin look fine as well. He has mild pain with gentle range of motion of the hip. Left leg is in good position and equal to the opposite side. Equal rotation. Minimal calf tenderness on the left. Negative Homans. Normal sensation to the foot and toes with good cap refill and equal pulses. No weakness in dorsiflexion or plantarflexion of the foot] Neurologic: [] Psychiatric: [] Hematologic/lymphatic/immunologic: [] Vital Signs Vital Signs Date Time Temp Pulse Resp B/P (MAP) Pulse Ox O2 Delivery O2 Flow Rate FiO2 11/21/20 12:22 96 11/21/20 09:40 36.5 11/21/20 08:00 36.5 101 20 123/75 (91) 96 Room Air 11/21/20 08:00 94 Room Air 3.00 11/21/20 07:00 111 11/21/20 01:00 91 11/21/20 00:05 36.2 92 20 125/75 (92) 96 Room Air 11/20/20 22:01 95 Room Air 11/20/20 20:10 98 Room Air 11/20/20 19:32 36.4 80 20 101/69 (80) 95 Room Air 11/20/20 19:00 92 11/20/20 16:53 36.7 95 18 115/71 (86) 96 Room Air I & O 11/21/20 07:00 Intake Total 1730 ml Output Total 1050 ml Balance 680 ml Lab Results Laboratory Tests 11/21/20 05:32: White Blood Count 9.1, Red Blood Count 3.37L, Hemoglobin 10.9L, Hematocrit 32L, Mean Corpuscular Volume 96, Mean Corpuscular Hemoglobin 32, Mean Corpuscular Hemoglobin Concent 34, Red Cell Distribution Width 14.6H, Platelet Count 97L, Mean Platelet Volume 12.9H, Immature Granulocyte % (Auto) 1, Neutrophils (%) (Auto) 72, Lymphocytes (%) (Auto) 19, Monocytes (%) (Auto) 8, Eosinophils (%) (Auto) 0, Basophils (%) (Auto) 0, Neutrophils # (Auto) 6.6, Lymphocytes # (Auto) 1.8, Monocytes # (Auto) 0.7, Eosinophils # (Auto) 0.0, Basophils # (Auto) 0.0, Immature Granulocyte # (Auto) 0.1, Sodium Level 135, Potassium Level 4.2, Chloride Level 102, Carbon Dioxide Level 26, Anion Gap 7, Blood Urea Nitrogen 17, Creatinine 0.74, Estimat Glomerular Filtration Rate > 60, BUN/Creatinine Ratio 23, Glucose Level 103, Calcium Level 8.6, Phosphorus Level 2.7, Magnesium Level 1.7 Assessment and Plan Assessment Doing well postop day number 2. Hemoglobin remained stable Problem List Unchanged Plan Continue physical therapy partial weightbearing on the left. Dressing changed today and then every other day. Final Diagonsis Status post femoral neck fixation or impacted subcapital fracture left hip Level of the visit: Level 3 Clinical Quality Measures DVT/VTE Risk/Contraindication: Risk Factor Score Per Nursin RFS Level Per Nursing on Admit: 4+=Very High Contraindications-Pharm: Other *list below* Other: SURGERY RONNELL MENJIVAR MD Nov 21, 2020 14:41
[2020-11-21 16:00] VITALS: BP 109/71
[2020-11-21] MEDS ORDERED: APIXABAN 5 MG (ELIQUIS) TABLET ONE (19:55)
[2020-11-21] MEDS: APIXABAN 5 MG (ELIQUIS) TABLET PO SCH (20:21)
[2020-11-21] MEDS: LACTULOSE SYRUP 10GM/15ML (ENULOSE) 30ML UDC PO SCH (20:21)
[2020-11-21 23:43] VITALS: BP 135/71
[2020-11-22 03:48] VITALS: BP 112/53
[2020-11-22 05:26] LABS: BASOPHILS % (AUTO) 0 % (0-10)
[2020-11-22 05:28] LABS: EOSINOPHILS % (AUTO) 0 % (0-10); HEMATOCRIT 32 % (40-54); HEMOGLOBIN 10.7 g/dL (13.3-17.7); LYMPHOCYTES % (AUTO) 14 % (12-44); MEAN CORPUSCULAR HEMOGLOBIN 32 pg (25-34); MEAN CORPUSCULAR HGB CONC 34 g/dL (32-36); MEAN CORPUSCULAR VOLUME 95 fL (80-99); MEAN PLATELET VOLUME 12.9 fL (9.0-12.2); MONOCYTES # (AUTO) 0.6 10^3/uL (0.0-1.0); MONOCYTES % (AUTO) 9 % (0-12); NEUTROPHILS # (AUTO) 5.4 10^3/uL (1.8-7.8); NEUTROPHILS % (AUTO) 76 % (42-75); PLATELET COUNT 94 10^3/uL (130-400); WHITE BLOOD COUNT 7.1 10^3/uL (4.3-11.0)
[2020-11-22 05:33] LABS: CHLORIDE 103 MMOL/L (98-107); POTASSIUM 3.9 MMOL/L (3.6-5.0); SODIUM 137 MMOL/L (135-145)
[2020-11-22 05:35] LABS: CALCIUM 8.6 MG/DL (8.5-10.1); GLUCOSE 106 MG/DL (70-105)
[2020-11-22 05:37] LABS: CARBON DIOXIDE 26 MMOL/L (21-32)
[2020-11-22 05:39] LABS: CREATININE SERUM 0.76 MG/DL (0.60-1.30); GFR ESTIMATED > 60
[2020-11-22 05:40] LABS: BUN/CREATININE RATIO 21
[2020-11-22 05:41] LABS: MAGNESIUM 1.7 MG/DL (1.6-2.4)
[2020-11-22] MEDS: SENNA W/DOCUSATE (SENOKOT S) TABLET PO SCH ×2 (08:23→21:14)
[2020-11-22] MEDS: LACTULOSE SYRUP 10GM/15ML (ENULOSE) 30ML UDC PO SCH ×2 (08:23→21:14)
[2020-11-22] MEDS: APIXABAN 5 MG (ELIQUIS) TABLET PO SCH ×2 (08:23→21:14)
[2020-11-22 08:33] VITALS: BP 103/62
--- NOTE | 2020-11-22 09:46 | Physical Therapy Daily Note ---
PT Daily Note-Current Subjective Agrees to PT. Reports he got up to the commode earlier today but agrees to sit in chair now. Mental Status Patient Orientation: Person, Place, Time, Situation Transfers SCALE: Activities may be completed with or without assistive devices. 8-Nadqkjymyl-smhmhvu completes the activity by him/herself with no assistance from a helper. 5-Set-up or Clean-up Assistance-helper sets up or cleans up; patient completes activity. [place] assists only prior to or following the activity. 4-Supervision or Touching Assistance-helper provides verbal cues and/or touching/steadying and/or contact guard assistance as patient completes activi ty. Assistance may be provided throughout the activity or intermittently. 3-Partial/Moderate Assistance-helper does LESS THAN HALF the effort. [place] lifts, holds or supports trunk or limbs, but provides less than half the effort. 2-Substantial/Maximal Assistance-helper does MORE THAN HALF the effort. [place] lifts or holds trunk or limbs and provides more than half the effort. 2-Snzqewgyf-xhmsyp does ALL the effort. Patient does none of the effort to complete the activity. Or, the assistance of 2 or more helpers is required for the patient to complete the activity. If activity was not attempted, code reason: 7-Patient Refused. 9-Not Applicable-not attempted and the patient did not perform the activity before the current illness, exacerbation or injury. 10-Not Attempted due to Environmental Limitations-(lack of equipment, weather restraints, etc.). 88-Not Attempted due to Medical Conditions or Safety Concerns. Lying to Sitting/Side of Bed(Q: 3 (min assist with left LE and skilled cues to sequence; takes extra time to complete. ) Sit to Stand (QC): 3 Chair/Hmo-tn-Vpncc Xfer(QC): 3 (min assist for standing and transfer for safety and balance maintenance. Able to SPT taking small steps, PWB left and transfer to the chair. ) Up in chair post treatment with needs met. Nurse aware. Weight Bearing Right Lower Extremity: Right Full Weight Bearing Left Lower Extremity: Left Partial Weight Bearing Treatments This therapist wore N95 mask and patient donned his face mask as well for duration of treatment. Assessment Current Status: Good Progress Pt moves slow but is doing well. Progressing with functional transfers. Will likely be able to initiate gait soon. PT Longterm Goals Longterm Goals PT Internet Media Planner Goals Time Frame: Nov 27, 2020 Roll Left & Right (QC): 4 Sit to Lying (QC): 4 Lying-Sitting on Side/Bed(QC): 4 Sit to Stand (QC): 4 Chair/Nac-vk-Otwyq Xfer(QC): 4 Walk 10 feet (QC): 4 Walk 50ft with 2 Turns (QC): 4 PT Plan Problem List Problem List: Activity Tolerance, Functional Strength, Safety, Balance, Gait, Transfer, Bed Mobility Treatment/Plan Treatment Plan: Continue Plan of Care Treatment Plan: Bed Mobility, Education, Functional Activity Virgilio, Functional Strength, Group Therapy, Gait, Safety, Therapeutic Exercise, Transfers Treatment Duration: Nov 27, 2020 Frequency: 11 times per week Estimated Hrs Per Day: .25 hour per day Patient and/or Family Agrees t: Yes Safety Risks/Education Patient Education: Transfer Techniques Teaching Recipient: Patient Teaching Methods: Demonstration, Discussion Response to Teaching: Return Demonstration Discharge Recommendations Therapy Discharge Recommendati: Post Acute PT Time/GCodes Time In: 910 Time Out: 945 Total Billed Treatment Time: 35 Total Billed Treatment visit FA 35 GEOVANY DOUGHERTY PT Nov 22, 2020 09:46
[2020-11-22 12:00] VITALS: BP 130/57
--- NOTE | 2020-11-22 12:27 | Progress Note - Hospitalist ---
Subjective HPI/CC On Admission Date Seen by Provider: Nov 22, 2020 Time Seen by Provider: 11:30 CC: Left hip fracture with AF w/RVR HPI:: Tis is an 85yoWM who presented to the ER after a fall and found to have a lift hip fracture but AF w/RVR. Dr Petit consulted along with Dr Winters and patient was placed on Cardizem drip. Patient is very frail and weak and high risk for decompensation. Patient told me he is aware of the need for repair in order to ambulate and he misses his of 61 years. Subjective/Events-last exam Hgb 10.7 BM this am very large after laxatives Addison DC No pain meds required PT OT ordered Review of Systems General: Fatigue Objective Exam Vital Signs Vital Signs Date Time Temp Pulse Resp B/P (MAP) Pulse Ox O2 Delivery O2 Flow Rate FiO2 11/22/20 16:00 36.2 51 18 139/68 (91) 96 Room Air 11/21/20 08:00 3.00 Capillary Refill : Less Than 3 SecondsLess Than 3 Seconds General Appearance: No Apparent Distress, WD/WN, Chronically ill Respiratory: Chest Non Tender, Lungs Clear, Normal Breath Sounds, No Accessory Muscle Use, No Respiratory Distress Cardiovascular: No Edema, No Gallop, No JVD, No Murmur, Normal Peripheral Pulses, Irregularly Irregular Neurologic/Psychiatric: Alert, Oriented x3, No Motor/Sensory Deficits, Normal Mood/Affect Results/Procedures Lab Laboratory Tests 11/22/20 04:35 Patient resulted labs reviewed. Assessment/Plan Assessment and Plan Assess & Plan/Chief Complaint Assessment: Left hip fracture AF w/RVR CAD HTN HLP Constipation 11/21/20 Plan: Hip repair Cardiology Monitor hgb 11/20/20: Pain control Monitor AF 11/21/20: Monitor AF Appreciate Dr Winters Addison cath BM regimen 11/22/20: Home meds Monitor hgb Pain meds Clinical Quality Measures DVT/VTE Risk/Contraindication: Risk Factor Score Per Nursin RFS Level Per Nursing on Admit: 4+=Very High Contraindications-Pharm: Other *list below* Other: SURGERY MATHEW LINCOLN DO Nov 22, 2020 12:27
--- NOTE | 2020-11-22 14:49 | Progress Note - Cardiology ---
Cardiology SOAP Progress Note Subjective: No cp or palp or syncope or shortness of breath Gen malaise No n/v Objective: I&O/Vital Signs 11/22/20 11/22/20 11/22/20 11/22/20 03:48 07:00 08:26 08:33 Temp 36.1 36.3 Pulse 62 68 63 Resp 18 20 B/P (MAP) 112/53 (72) 103/62 (76) Pulse Ox 98 96 O2 Delivery Room Air Room Air Room Air 11/22/20 11/22/20 12:00 12:46 Temp 36.4 Pulse 52 67 Resp 20 B/P (MAP) 130/57 (81) Pulse Ox 95 O2 Delivery Room Air 11/22/20 00:00 Intake Total 550 ml Output Total 475 ml Balance 75 ml Weight (Pounds): 163 Weight (Ounces): 2.0 Weight (Calculated Kilograms): 73.942886 Constitutional: AAO x 3, well-developed, other (thin) Respiratory: No accessory muscle use, No respiratory distress; chest expansion is symmetric, chest is bilaterally symmetric, lungs clear to auscultation Cardiovascular: irregularly irregular; No JVD; tachycardia, systolic murmur Gastrointestional: No tender; soft, round, audible bowel sounds Extremities: no lower extremity edema bilateral Neurologic/Psychiatric: other (left leg not manipulated d/t fracture, moves all other extremities) Skin: No rash on exposed areas, No ulcerations on exposed areas Results/Procedures: Labs Laboratory Tests 11/22/20 04:35: White Blood Count 7.1, Red Blood Count 3.31L, Hemoglobin 10.7L, Hematocrit 32L, Mean Corpuscular Volume 95, Mean Corpuscular Hemoglobin 32, Mean Corpuscular Hemoglobin Concent 34, Red Cell Distribution Width 14.5, Platelet Count 94L, Mean Platelet Volume 12.9H, Immature Granulocyte % (Auto) 1, Neutrophils (%) (Auto) 76H, Lymphocytes (%) (Auto) 14, Monocytes (%) (Auto) 9, Eosinophils (%) (Auto) 0, Basophils (%) (Auto) 0, Neutrophils # (Auto) 5.4, Lymphocytes # (Auto) 1.0, Monocytes # (Auto) 0.6, Eosinophils # (Auto) 0.0, Basophils # (Auto) 0.0, Immature Granulocyte # (Auto) 0.0, Sodium Level 137, Potassium Level 3.9, Chloride Level 103, Carbon Dioxide Level 26, Anion Gap 8, Blood Urea Nitrogen 16, Creatinine 0.76, Estimat Glomerular Filtration Rate > 60, BUN/Creatinine Ratio 21, Glucose Level 106H, Calcium Level 8.6, Phosphorus Level 3.0, Magnesium Level 1.7 Laboratory Tests 11/21/20 05:32 11/22/20 04:35 A/P: Assessment: Nonsyncopal fall leading to left hip fracture on 11-18-2020, treated with femoral neck fixation on 11/19/20 A Fib with RVR. Long-acting dilt for rate control. 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 Last cath was on 05/20/14. It showed diffuse disease consisting of up to 50% stenoses in all cors. FFR across multiple mid-vessel LAD lesions was 0.92, indicating hemodynamic insignificance. There was a patent stent in mid LAD and in distal RCA. Distal RCA stent is known to be Promus [id number] placed in Aug 2012. LVEF on cath of May 2014 was 45% and LVEDP was mildly elevated Hyperlipidemia, but the patient is intolerant to statins. Postural hypotension, resolved following cessation of therapy with RYAN inhibitors and Terazosin. Multiple medication intolerances. See below. Intolerance to beta-blockers on account of symptomatic bradycardia and hypotension. Intolerance to RYAN inhibitors on account of postural hypotension Intolerance to ARBs on account of dizziness. Intolerance to warfarin due to nonspecific symptoms and fear of side effects - has tolerated apixaban Mild carotid arterial disease (less than 40%) per carotid ultrasonography of May 2016. Chronic moderate vertigo. Chronic low back pain, s/p low low back kyphoplasty, but back pain has persisted Plan: Continue long-acting dilt Apixaban resumed after ok from the surg svce Monitor labs UZIEL SHEEHAN MD FACP FACC CCDS Nov 22, 2020 14:49
[2020-11-22] MEDS: HYDROcodone/APAP 5 MG/325 MG (LORTAB) TAB PO PRN (15:39)
[2020-11-22 16:00] VITALS: BP 139/68
[2020-11-22 19:59] VITALS: BP 114/67
[2020-11-22 23:32] VITALS: BP 122/78
[2020-11-23 03:40] VITALS: BP 118/67
[2020-11-23 06:50] LABS: BASOPHILS % (AUTO) 0 % (0-10); EOSINOPHILS % (AUTO) 1 % (0-10); HEMATOCRIT 35 % (40-54); HEMOGLOBIN 11.6 g/dL (13.3-17.7); LYMPHOCYTES # (AUTO) 1.3 10^3/uL (1.0-4.0); LYMPHOCYTES % (AUTO) 20 % (12-44); MEAN CORPUSCULAR HEMOGLOBIN 33 pg (25-34); MEAN CORPUSCULAR HGB CONC 34 g/dL (32-36); MEAN CORPUSCULAR VOLUME 97 fL (80-99); MEAN PLATELET VOLUME 11.5 fL (9.0-12.2); MONOCYTES # (AUTO) 0.6 10^3/uL (0.0-1.0); MONOCYTES % (AUTO) 9 % (0-12); NEUTROPHILS # (AUTO) 4.4 10^3/uL (1.8-7.8); NEUTROPHILS % (AUTO) 70 % (42-75); PLATELET COUNT 108 10^3/uL (130-400); WHITE BLOOD COUNT 6.3 10^3/uL (4.3-11.0)
[2020-11-23 06:51] LABS: ALBUMIN 3.3 GM/DL (3.2-4.5); CHLORIDE 103 MMOL/L (98-107); POTASSIUM 3.4 MMOL/L (3.6-5.0); SODIUM 135 MMOL/L (135-145)
[2020-11-23 06:52] LABS: CALCIUM 8.6 MG/DL (8.5-10.1)
[2020-11-23 06:53] LABS: GLUCOSE 104 MG/DL (70-105); TOTAL PROTEIN 5.9 GM/DL (6.4-8.2)
[2020-11-23 06:54] LABS: CARBON DIOXIDE 24 MMOL/L (21-32)
[2020-11-23 06:55] LABS: BILIRUBIN,TOTAL 1.3 MG/DL (0.1-1.0)
[2020-11-23 06:57] LABS: ALKALINE PHOSPHATASE 50 U/L (40-136); CREATININE SERUM 0.71 MG/DL (0.60-1.30); GFR ESTIMATED > 60
[2020-11-23 06:58] LABS: BUN/CREATININE RATIO 15
[2020-11-23 07:00] LABS: ALANINE AMINOTRANSFERASE 17 U/L (0-55)
[2020-11-23] MEDS: LACTULOSE SYRUP 10GM/15ML (ENULOSE) 30ML UDC PO SCH (07:41)
[2020-11-23] MEDS: SENNA W/DOCUSATE (SENOKOT S) TABLET PO SCH (07:41)
[2020-11-23 08:00] VITALS: BP 133/71
[2020-11-23] MEDS: APIXABAN 5 MG (ELIQUIS) TABLET PO SCH (08:38)
--- NOTE | 2020-11-23 09:21 | NUR ---
IRF Evaluation Determination: Accepted Chart review complete and findings discussed with Dr. Puente - patient accepted. Met with patient to discuss details related to rehabilitation program. Patient agreeable to admission and required therapy regimen. Anticipate admission, 11/23/19. RN notified. Thank you for this referral.
--- NOTE | 2020-11-23 09:44 | Physical Therapy Daily Note ---
PT Daily Note-Current Subjective Patient is very talkative and agrees to PT. Pain Numeric Pain Scale: 0-No Pain Location: No Pain Reported Mental Status Patient Orientation: Normal For Age Attachments: Addison Catheter Transfers SCALE: Activities may be completed with or without assistive devices. 1-Xwxrspbnfv-zkrzuvi completes the activity by him/herself with no assistance from a helper. 5-Set-up or Clean-up Assistance-helper sets up or cleans up; patient completes activity. [place] assists only prior to or following the activity. 4-Supervision or Touching Assistance-helper provides verbal cues and/or touching/steadying and/or contact guard assistance as patient completes activity. Assistance may be provided throughout the activity or intermittently. 3-Partial/Moderate Assistance-helper does LESS THAN HALF the effort. [place] lifts, holds or supports trunk or limbs, but provides less than half the effort. 2-Substantial/Maximal Assistance-helper does MORE THAN HALF the effort. [place] lifts or holds trunk or limbs and provides more than half the effort. 0-Nekfhauqw-htbpqw does ALL the effort. Patient does none of the effort to complete the activity. Or, the assistance of 2 or more helpers is required for the patient to complete the activity. If activity was not attempted, code reason: 7-Patient Refused. 9-Not Applicable-not attempted and the patient did not perform the activity before the current illness, exacerbation or injury. 10-Not Attempted due to Environmental Limitations-(lack of equipment, weather restraints, etc.). 88-Not Attempted due to Medical Conditions or Safety Concerns. Lying to Sitting/Side of Bed(Q: 4 Sit to Stand (QC): 4 Chair/Vwi-fe-Mzand Xfer(QC): 4 CGA for safety (compliant with PWB left LE) Weight Bearing Right Lower Extremity: Right Full Weight Bearing Left Lower Extremity: Left Partial Weight Bearing Gait Training Does the Patient Walk?: Yes Distance: 15' x 2 Walk 10 feet (QC): 4 Gait Assistive Device: FWW step to sequence Exercises Supine Ex: Ankle pumps, Quad Set, Heel Slides, Hip abd/add Supine Reps: 12 Seated Therapy Exercises: Long arc quads Seated Reps: 12 Assessment Patient tolerated treatment well. Patient in recliner with needs met. PT Remote Sensing Specialist Goals Longterm Goals PT Longterm Goals Time Frame: Nov 27, 2020 Roll Left & Right (QC): 4 Sit to Lying (QC): 4 Lying-Sitting on Side/Bed(QC): 4 Sit to Stand (QC): 4 Chair/Toq-ue-Ptdrb Xfer(QC): 4 Walk 10 feet (QC): 4 Walk 50ft with 2 Turns (QC): 4 PT Plan Treatment/Plan Treatment Plan: Continue Plan of Care Treatment Plan: Bed Mobility, Education, Functional Activity Virgilio, Functional Strength, Group Therapy, Gait, Safety, Therapeutic Exercise, Transfers Treatment Duration: Nov 27, 2020 Frequency: 11 times per week Estimated Hrs Per Day: .25 hour per day Patient and/or Family Agrees t: Yes Time/GCodes Time In: 820 Time Out: 847 Total Billed Treatment Time: 27 Total Billed Treatment 1 visit GT 12 min EX 15 min JONA SAUNDERS PT Nov 23, 2020 09:44
[2020-11-23] MEDS: HYDROcodone/APAP 10 MG/325 MG (LORTAB) TAB PO PRN (09:49)
--- NOTE | 2020-11-23 10:00 | NUR ---
Gave report to Mayra in ARU at this time.
--- NOTE | 2020-11-23 10:01 | Progress Note - Cardiology ---
Cardiology SOAP Progress Note Subjective: Sitting up in bed States he feels ok this morning No c/o CP, SOB or palpitations Objective: I&O/Vital Signs 11/22/20 11/23/20 11/23/20 11/23/20 23:32 01:00 03:40 06:48 Temp 36.5 36.8 Pulse 69 78 95 95 Resp 18 18 B/P (MAP) 122/78 (93) 118/67 (84) Pulse Ox 97 98 O2 Delivery Room Air Room Air 11/23/20 08:00 Temp 35.2 Pulse 97 Resp 18 B/P (MAP) 133/71 (91) Pulse Ox 97 O2 Delivery Room Air 11/23/20 00:00 Intake Total 660 ml Output Total 675 ml Balance -15 ml Weight (Pounds): 163 Weight (Ounces): 2.0 Weight (Calculated Kilograms): 73.739556 Constitutional: AAO x 3, well-developed, other (thin) Respiratory: No accessory muscle use, No respiratory distress; chest expansion is symmetric, chest is bilaterally symmetric, lungs clear to auscultation Cardiovascular: irregularly irregular; No JVD; tachycardia, systolic murmur Gastrointestional: No tender; soft, round, audible bowel sounds Extremities: no lower extremity edema bilateral Neurologic/Psychiatric: other (left leg not manipulated d/t fracture, moves all other extremities) Skin: No rash on exposed areas, No ulcerations on exposed areas Results/Procedures: Labs Laboratory Tests 11/23/20 06:05: White Blood Count 6.3, Red Blood Count 3.57L, Hemoglobin 11.6L, Hematocrit 35L, Mean Corpuscular Volume 97, Mean Corpuscular Hemoglobin 33, Mean Corpuscular Hemoglobin Concent 34, Red Cell Distribution Width 14.6H, Platelet Count 108L, Mean Platelet Volume 11.5, Immature Granulocyte % (Auto) 1, Neutrophils (%) (Auto) 70, Lymphocytes (%) (Auto) 20, Monocytes (%) (Auto) 9, Eosinophils (%) (Auto) 1, Basophils (%) (Auto) 0, Neutrophils # (Auto) 4.4, Lymphocytes # (Auto) 1.3, Monocytes # (Auto) 0.6, Eosinophils # (Auto) 0.0, Basophils # (Auto) 0.0, Immature Granulocyte # (Auto) 0.0, Sodium Level 135, Potassium Level 3.4L, Chloride Level 103, Carbon Dioxide Level 24, Anion Gap 8, Blood Urea Nitrogen 11, Creatinine 0.71, Estimat Glomerular Filtration Rate > 60, BUN/Creatinine Ratio 15, Glucose Level 104, Calcium Level 8.6, Corrected Calcium 9.2, Total Bilirubin 1.3H, Aspartate Amino Transf (AST/SGOT) 30, Alanine Aminotransferase (ALT/SGPT) 17, Alkaline Phosphatase 50, Total Protein 5.9L, Albumin 3.3 A/P: Assessment: Nonsyncopal fall leading to left hip fracture on 11-18-2020, treated with femoral neck fixation on 11/19/20 A Fib with RVR. Long-acting dilt for rate control. 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 Last cath was on 05/20/14. It showed diffuse disease consisting of up to 50% stenoses in all cors. FFR across multiple mid-vessel LAD lesions was 0.92, indicating hemodynamic insignificance. There was a patent stent in mid LAD and in distal RCA. Distal RCA stent is known to be Promus 2.5x12 placed in Aug 2012. LVEF on cath of May 2014 was 45% and LVEDP was mildly elevated Hyperlipidemia, but the patient is intolerant to statins. Postural hypotension, resolved following cessation of therapy with RYAN inhibitors and Terazosin. Multiple medication intolerances. See below. Intolerance to beta-blockers on account of symptomatic bradycardia and hypotensi on. Intolerance to RYAN inhibitors on account of postural hypotension Intolerance to ARBs on account of dizziness. Intolerance to warfarin due to nonspecific symptoms and fear of side effects - has tolerated apixaban Mild carotid arterial disease (less than 40%) per carotid ultrasonography of May 2016. Chronic moderate vertigo. Chronic low back pain, s/p low low back kyphoplasty, but back pain has persisted Plan: Continue long-acting dilt Apixaban has been resumed Monitor labs Replace potassium Plan is transfer to IRF later today CAITLYN SANTILLAN Nov 23, 2020 10:01
--- NOTE | 2020-11-23 10:07 | Progress Note - Ortho ---
Progress Note Subjective Date of Exam 11/23/20 Chief Complaint POD#4 femoral neck fixation device for impacted subcapital fracture left hip HPI/Events since last exam Mr Prince is 4 days postop. He is doing very well. No complaints. Review of Systems Reviewed and no additions or changes Allergies: Coded Allergies: Rfasfys-Yhc-Mup Reductase Inhibitor (Unverified Allergy, Unknown, 03/12/19) codeine (Unverified Adverse Reaction, Mild, Altered taste, 02/13/15) Uncoded Allergies: beta blockers (Adverse Reaction, Severe, severe bradycardia, 04/07/20) Home Meds Reported Medications Diltiazem HCl (Cartia Xt) 120 Mg Cap.er.24h, 240 MG PO HS, CAP TAKES 2 (120MG) CAPS 11/19/20 Diltiazem HCl (Cartia Xt) 120 Mg Cap.er.24h, 120 MG PO DAILY, CAP 11/19/20 Docusate Sodium (Stool Softener) 100 Mg Capsule, 200 MG PO 1200,2100, CAP 04/07/20 Multivit-Min/FA/Lycopen/Lutein (Centravites 50 Plus Tablet) 1 Each Tablet, 1 EACH PO 1200, TAB 04/07/20 Aspirin (Aspirin EC) 81 Mg Tablet.dr, 81 MG PO 1200, TAB 03/11/19 Apixaban (Eliquis) 5 Mg Tablet, 5 MG PO BID, TAB 10/23/17 Discontinued Scripts Digoxin (Digoxin) 250 Mcg Tablet, 250 MCG PO DAILY, #30 TAB 3 Refills Prov:CAITLYN SANTILLAN [employer] 20 Potassium Chloride (Potassium Chloride) 20 Meq Tablet.er, 20 MEQ PO DAILY, #30 TAB 3 Refills Prov:CAITLYN SANTILLAN [employer] 20 Diltiazem HCl (Cardizem Cd) 120 Mg Cap.er.24h, 120 MG PO DAILY, #90 CAP Two capsules in the morning and one capsule in the evening Prov:CAITLYN SANTILLAN [employer] 04/08/20 Furosemide (Lasix) 80 Mg Tablet, 80 MG PO DAILY, #30 TAB 3 Refills Prov:CAITLYN SANTILLAN [employer] 04/08/20 Spironolactone (Spironolactone) 25 Mg Tablet, 25 MG PO DAILY, #30 TAB 5 Refills Prov:CAITLYN SANTILLAN [employer] 04/08/20 Objective Exam Constitutional: [] HEENT: [] Neck: [] Cardiovascular: [] Respiratory: [] Gastrointestinal: [] Genitourinary: [] Skin: [] Back/Spine: [] Extremities: [Dressing was removed and there is some bloody drainage on the dressing that was changed yesterday No calf tenderness negative Homans. He is neurovascularly intact in both lower extremities] Neurologic: [] Psychiatric: [] Hematologic/lymphatic/immunologic: [] Vital Signs Vital Signs Date Time Temp Pulse Resp B/P (MAP) Pulse Ox O2 Delivery O2 Flow Rate FiO2 11/23/20 08:00 35.2 97 18 133/71 (91) 97 Room Air 11/23/20 06:48 95 11/23/20 03:40 36.8 95 18 118/67 (84) 98 Room Air 11/23/20 01:00 78 11/22/20 23:32 36.5 69 18 122/78 (93) 97 Room Air 11/22/20 20:59 97 Room Air 11/22/20 19:59 36.3 65 18 114/67 (83) 96 Room Air 11/22/20 19:00 83 11/22/20 16:00 36.2 51 18 139/68 (91) 96 Room Air 11/22/20 12:46 67 11/22/20 12:00 36.4 52 20 130/57 (81) 95 Room Air I & O 11/23/20 06:59 Intake Total 760 ml Output Total 1100 ml Balance -340 ml Lab Results Laboratory Tests 11/23/20 06:05: White Blood Count 6.3, Red Blood Count 3.57L, Hemoglobin 11.6L, Hematocrit 35L, Mean Corpuscular Volume 97, Mean Corpuscular Hemoglobin 33, Mean Corpuscular Hemoglobin Concent 34, Red Cell Distribution Width 14.6H, Platelet Count 108L, Mean Platelet Volume 11.5, Immature Granulocyte % (Auto) 1, Neutrophils (%) (Auto) 70, Lymphocytes (%) (Auto) 20, Monocytes (%) (Auto) 9, Eosinophils (%) (Auto) 1, Basophils (%) (Auto) 0, Neutrophils # (Auto) 4.4, Lymphocytes # (Auto) 1.3, Monocytes # (Auto) 0.6, Eosinophils # (Auto) 0.0, Basophils # (Auto) 0.0, Immature Granulocyte # (Auto) 0.0, Sodium Level 135, Potassium Level 3.4L, Chloride Level 103, Carbon Dioxide Level 24, Anion Gap 8, Blood Urea Nitrogen 11, Creatinine 0.71, Estimat Glomerular Filtration Rate > 60, BUN/Creatinine Ratio 15, Glucose Level 104, Calcium Level 8.6, Corrected Calcium 9.2, Total Bilirubin 1.3H, Aspartate Amino Transf (AST/SGOT) 30, Alanine Aminotransferase (ALT/SGPT) 17, Alkaline Phosphatase 50, Total Protein 5.9L, Albumin 3.3 Assessment and Plan Assessment Doing well 4 days postop. Hemoglobin stable Problem List Unchanged Plan Continue physical and occupational therapy, walker ambulation partial weightbearing on the left. Final Diagonsis Impacted subcapital fracture left hip status post open reduction internal fixation Level of the visit: Level 3 Clinical Quality Measures DVT/VTE Risk/Contraindication: Risk Factor Score Per Nursin RFS Level Per Nursing on Admit: 4+=Very High Contraindications-Pharm: Other *list below* Other: SURGERY RONNELL MENJIVAR MD Nov 23, 2020 10:07
[2020-11-23] MEDS ORDERED: KCL 20 MEQ TAB (K-DUR) PO NR (10:15)
--- NOTE | 2020-11-23 10:29 | Discharge Summary ---
Diagnosis/Chief Complaint Date of Admission Nov 18, 2020 at 13:15 Date of Discharge Discharge Date: Nov 23, 2020 Discharge Diagnosis Assessment: Left hip fracture AF w/RVR CAD HTN HLP Constipation 11/21/20 Plan: Hip repair Cardiology Monitor hgb 11/20/20: Pain control Monitor AF 11/21/20: Monitor AF Appreciate Dr Singh Addison cath BM regimen 11/22/20: Home meds Monitor hgb Pain meds Discharge Summary Discharge Physical Examination Allergies: Coded Allergies: Nooenzi-Rim-Vkj Reductase Inhibitor (Unverified Allergy, Unknown, 03/12/19) codeine (Unverified Adverse Reaction, Mild, Altered taste, 02/13/15) Uncoded Allergies: beta blockers (Adverse Reaction, Severe, severe bradycardia, 04/07/20) Vitals & I&Os Vital Signs Date Time Temp Pulse Resp B/P (MAP) Pulse Ox O2 Delivery O2 Flow Rate FiO2 11/23/20 08:00 Room Air 11/23/20 08:00 35.2 97 18 133/71 (91) 97 11/21/20 08:00 3.00 General Appearance: Alert, Oriented X3, Cooperative Respiratory: Clear to Auscultation Hospital Course Was the Problem List Reviewed?: Yes Hospital course: Pt had a lengthy hospital course, complicated after he came in with a left hip fracture after a fall, had AFIB with RVR requiring cardiology to evaluate him and he underwent an uncomplicated surgery repair by Dr. Petit. He was able to regain function, and to participate in PT and OT, his bowels did move after multiple laxatives and he was discharged to inpatient rehab to continue recovery. He lives at home with his of 61 years and currently he is a bit worn out working with PT. He has received some pain medication and is overall doing much better. Labs (last 24 hrs) Laboratory Tests 11/18/20 10:05: White Blood Count 7.6, Red Blood Count 3.99L, Hemoglobin 13.0L, Hematocrit 38L, Mean Corpuscular Volume 96, Mean Corpuscular Hemoglobin 33, Mean Corpuscular Hemoglobin Concent 34, Red Cell Distribution Width 14.6H, Platelet Count 75L, Mean Platelet Volume 10.9, Immature Granulocyte % (Auto) 1, Neutrophils (%) (Auto) 81H, Lymphocytes (%) (Auto) 13, Monocytes (%) (Auto) 6, Eosinophils (%) (Auto) 0, Basophils (%) (Auto) 0, Neutrophils # (Auto) 6.2, Lymphocytes # (Auto) 1.0, Monocytes # (Auto) 0.4, Eosinophils # (Auto) 0.0, Basophils # (Auto) 0.0, Immature Granulocyte # (Auto) 0.1, Prothrombin Time 18.2H, INR Comment 1.5H, Activated Partial Thromboplast Time 31, Sodium Level 140, Potassium Level 3.7, Chloride Level 108H, Carbon Dioxide Level 22, Anion Gap 10, Blood Urea Nitrogen 14, Creatinine 0.81, Estimat Glomerular Filtration Rate > 60, BUN/Creatinine Ratio 17, Glucose Level 127H, Calcium Level 9.3, Corrected Calcium 9.5, Total Bilirubin 1.0, Aspartate Amino Transf (AST/SGOT) 28, Alanine Aminotransferase (ALT/SGPT) 25, Alkaline Phosphatase 54, Total Protein 6.7, Albumin 3.8 11/18/20 12:10: Urine Color YELLOW, Urine Clarity CLEAR, Urine pH 5.5, Urine Specific [place] 1.025H, Urine Protein NEGATIVE, Urine Glucose (UA) NEGATIVE, Urine Ketones TRACEH, Urine Nitrite NEGATIVE, Urine Bilirubin NEGATIVE, Urine Urobilinogen 0.2, Urine Leukocyte Esterase NEGATIVE, Urine RBC (Auto) NEGATIVE, Urine RBC RARE, Urine WBC 2-5, Urine Squamous Epithelial Cells 2-5, Urine Crystals PRESENTH, Urine Calcium Oxalate Crystals RAREH, Urine Amorphous Sediment FEW STEVEN URATESH, Urine Bacteria TRACE, Urine Casts PRESENT, Urine Hyaline Casts RAR E, Urine Mucus SMALLH, Urine Culture Indicated NO 11/19/20 02:50: White Blood Count 5.8, Red Blood Count 3.62L, Hemoglobin 11.6L, Hematocrit 35L, Mean Corpuscular Volume 96, Mean Corpuscular Hemoglobin 32, Mean Corpuscular Hemoglobin Concent 33, Red Cell Distribution Width 14.7H, Platelet Count 72L, Mean Platelet Volume 12.7H, Immature Granulocyte % (Auto) 1, Neutrophils (%) (Auto) 67, Lymphocytes (%) (Auto) 24, Monocytes (%) (Auto) 8, Eosinophils (%) (Auto) 0, Basophils (%) (Auto) 0, Neutrophils # (Auto) 3.9, Lymphocytes # (Auto) 1.4, Monocytes # (Auto) 0.4, Eosinophils # (Auto) 0.0, Basophils # (Auto) 0.0, Immature Granulocyte # (Auto) 0.0, Sodium Level 141, Potassium Level 4.2, Chloride Level 109H, Carbon Dioxide Level 25, Anion Gap 7, Blood Urea Nitrogen 13, Creatinine 0.75, Estimat Glomerular Filtration Rate > 60, BUN/Creatinine Ratio 17, Glucose Level 106H, Calcium Level 8.8, Corrected Calcium 9.4, Total Bilirubin 1.1H, Aspartate Amino Transf (AST/SGOT) 23, Alanine Aminotransferase (ALT/SGPT) 19, Alkaline Phosphatase 46, Total Protein 5.8L, Albumin 3.3, Phosphorus Level 3.2, Magnesium Level 1.9, Thyroid Stimulating Hormone (TSH) 1. 81 11/20/20 02:55: Hemoglobin 11.0L, Hematocrit 33L, Phosphorus Level 3.1, Magnesium Level 1.7 11/21/20 05:32: White Blood Count 9.1, Red Blood Count 3.37L, Hemoglobin 10.9L, Hematocrit 32L, Mean Corpuscular Volume 96, Mean Corpuscular Hemoglobin 32, Mean Corpuscular Hemoglobin Concent 34, Red Cell Distribution Width 14.6H, Platelet Count 97L, Mean Platelet Volume 12.9H, Immature Granulocyte % (Auto) 1, Neutrophils (%) (Auto) 72, Lymphocytes (%) (Auto) 19, Monocytes (%) (Auto) 8, Eosinophils (%) (Auto) 0, Basophils (%) (Auto) 0, Neutrophils # (Auto) 6.6, Lymphocytes # (Auto) 1.8, Monocytes # (Auto) 0.7, Eosinophils # (Auto) 0.0, Basophils # (Auto) 0.0, Immature Granulocyte # (Auto) 0.1, Sodium Level 135, Potassium Level 4.2, Chloride Level 102, Carbon Dioxide Level 26, Anion Gap 7, Blood Urea Nitrogen 17, Creatinine 0.74, Estimat Glomerular Filtration Rate > 60, BUN/Creatinine Ratio 23, Glucose Level 103, Calcium Level 8.6, Phosphorus Level 2.7, Magnesium Level 1.7 11/22/20 04:35: White Blood Count 7.1, Red Blood Count 3.31L, Hemoglobin 10.7L, Hematocrit 32L, Mean Corpuscular Volume 95, Mean Corpuscular Hemoglobin 32, Mean Corpuscular Hemoglobin Concent 34, Red Cell Distribution Width 14.5, Platelet Count 94L, Mean Platelet Volume 12.9H, Immature Granulocyte % (Auto) 1, Neutrophils (%) (Auto) 76H, Lymphocytes (%) (Auto) 14, Monocytes (%) (Auto) 9, Eosinophils (%) (Auto) 0, Basophils (%) (Auto) 0, Neutrophils # (Auto) 5.4, Lymphocytes # (Auto) 1.0, Monocytes # (Auto) 0.6, Eosinophils # (Auto) 0.0, Basophils # (Auto) 0.0, Immature Granulocyte # (Auto) 0.0, Sodium Level 137, Potassium Level 3.9, Chloride Level 103, Carbon Dioxide Level 26, Anion Gap 8, Blood Urea Nitrogen 16, Creatinine 0.76, Estimat Glomerular Filtration Rate > 60, BUN/Creatinine Ratio 21, Glucose Level 106H, Calcium Level 8.6, Phosphorus Level 3.0, Magnesium Level 1.7 11/23/20 06:05: White Blood Count 6.3, Red Blood Count 3.57L, Hemoglobin 11.6L, Hematocrit 35L, Mean Corpuscular Volume 97, Mean Corpuscular Hemoglobin 33, Mean Corpuscular Hemoglobin Concent 34, Red Cell Distribution Width 14.6H, Platelet Count 108L, Mean Platelet Volume 11.5, Immature Granulocyte % (Auto) 1, Neutrophils (%) (Auto) 70, Lymphocytes (%) (Auto) 20, Monocytes (%) (Auto) 9, Eosinophils (%) (Auto) 1, Basophils (%) (Auto) 0, Neutrophils # (Auto) 4.4, Lymphocytes # (Auto) 1.3, Monocytes # (Auto) 0.6, Eosinophils # (Auto) 0.0, Basophils # (Auto) 0.0, Immature Granulocyte # (Auto) 0.0, Sodium Level 135, Potassium Level 3.4L, Chloride Level 103, Carbon Dioxide Level 24, Anion Gap 8, Blood Urea Nitrogen 11, Creatinine 0.71, Estimat Glomerular Filtration Rate > 60, BUN/Creatinine Ratio 15, Glucose Level 104, Calcium Level 8.6, Corrected Calcium 9.2, Total Bilirubin 1.3H, Aspartate Amino Transf (AST/SGOT) 30, Alanine Aminotransferase (ALT/SGPT) 17, Alkaline Phosphatase 50, Total Protein 5.9L, Albumin 3.3 11/24/20 13:33: Lab Scanned Report Transfusion Reaction Form Pending Labs Laboratory Tests 11/18/20 10:05: White Blood Count 7.6, Red Blood Count 3.99, Hemoglobin 13.0, Hematocrit 38, Mean Corpuscular Volume 96, Mean Corpuscular Hemoglobin 33, Mean Corpuscular Hemoglobin Concent 34, Red Cell Distribution Width 14.6, Platelet Count 75, Mean Platelet Volume 10.9, Immature Granulocyte % (Auto) 1, Neutrophils (%) (Auto) 81, Lymphocytes (%) (Auto) 13, Monocytes (%) (Auto) 6, Eosinophils (%) (Auto) 0, Basophils (%) (Auto) 0, Neutrophils # (Auto) 6.2, Lymphocytes # (Auto) 1.0, Monocytes # (Auto) 0.4, Eosinophils # (Auto) 0.0, Basophils # (Auto) 0.0, Immature Granulocyte # (Auto) 0.1, Prothrombin Time 18.2, INR Comment 1.5, Act ivated Partial Thromboplast Time 31, Sodium Level 140, Potassium Level 3.7, Chloride Level 108, Carbon Dioxide Level 22, Anion Gap 10, Blood Urea Nitrogen 14, Creatinine 0.81, Estimat Glomerular Filtration Rate > 60, BUN/Creatinine Ratio 17, Glucose Level 127, Calcium Level 9.3, Corrected Calcium 9.5, Total Bilirubin 1.0, Aspartate Amino Transf (AST/SGOT) 28, Alanine Aminotransferase (ALT/SGPT) 25, Alkaline Phosphatase 54, Total Protein 6.7, Albumin 3.8 11/18/20 12:10: Urine Color YELLOW, Urine Clarity CLEAR, Urine pH 5.5, Urine Specific [place] 1.025, Urine Protein NEGATIVE, Urine Glucose (UA) NEGATIVE, Urine Ketones TRACE, Urine Nitrite NEGATIVE, Urine Bilirubin NEGATIVE, Urine Urobilinogen 0.2, Urine Leukocyte Esterase NEGATIVE, Urine RBC (Auto) NEGATIVE, Urine RBC RARE, Urine WBC 2-5, Urine Squamous Epithelial Cells 2-5, Urine Crystals PRESENT, Urine Calcium Oxalate Crystals RARE, Urine Amorphous Sediment FEW STEVEN URATES, Urine Bacteria TRACE, Urine Casts PRESENT, Urine Hyaline Casts RARE, Urine Mucus SMALL, Urine Culture Indicated NO 11/19/20 02:50: White Blood Count 5.8, Red Blood Count 3.62, Hemoglobin 11.6, Hematocrit 35, Mean Corpuscular Volume 96, Mean Corpuscular Hemoglobin 32, Mean Corpuscular Hemoglobin Concent 33, Red Cell Distribution Width 14.7, Platelet Count 72, Mean Platelet Volume 12.7, Immature Granulocyte % (Auto) 1, Neutrophils (%) (Auto) 67, Lymphocytes (%) (Auto) 24, Monocytes (%) (Auto) 8, Eosinophils (%) (Auto) 0, Basophils (%) (Auto) 0, Neutrophils # (Auto) 3.9, Lymphocytes # (Auto) 1.4, Monocytes # (Auto) 0.4, Eosinophils # (Auto) 0.0, Basophils # (Auto) 0.0, Immat ure Granulocyte # (Auto) 0.0, Sodium Level 141, Potassium Level 4.2, Chloride Level 109, Carbon Dioxide Level 25, Anion Gap 7, Blood Urea Nitrogen 13, Creatinine 0.75, Estimat Glomerular Filtration Rate > 60, BUN/Creatinine Ratio 17, Glucose Level 106, Calcium Level 8.8, Corrected Calcium 9.4, Total Bilirubin 1.1, Aspartate Amino Transf (AST/SGOT) 23, Alanine Aminotransferase (ALT/SGPT) 19, Alkaline Phosphatase 46, Total Protein 5.8, Albumin 3.3, Phosphorus Level 3.2, Magnesium Level 1.9, Thyroid Stimulating Hormone (TSH) 1.81 11/20/20 02:55: Hemoglobin 11.0, Hematocrit 33, Phosphorus Level 3.1, Magnesium Level 1.7 11/21/20 05:32: White Blood Count 9.1, Red Blood Count 3.37, Hemoglobin 10.9, Hematocrit 32, Mean Corpuscular Volume 96, Mean Corpuscular Hemoglobin 32, Mean Corpuscular Hemoglobin Concent 34, Red Cell Distribution Width 14.6, Platelet Count 97, Mean Platelet Volume 12.9, Immature Granulocyte % (Auto) 1, Neutrophils (%) (Auto) 72, Lymphocytes (%) (Auto) 19, Monocytes (%) (Auto) 8, Eosinophils (%) (Auto) 0, Basophils (%) (Auto) 0, Neutrophils # (Auto) 6.6, Lymphocytes # (Auto) 1.8, Mon ocytes # (Auto) 0.7, Eosinophils # (Auto) 0.0, Basophils # (Auto) 0.0, Immature Granulocyte # (Auto) 0.1, Sodium Level 135, Potassium Level 4.2, Chloride Level 102, Carbon Dioxide Level 26, Anion Gap 7, Blood Urea Nitrogen 17, Creatinine 0.74, Estimat Glomerular Filtration Rate > 60, BUN/Creatinine Ratio 23, Glucose Level 103, Calcium Level 8.6, Phosphorus Level 2.7, Magnesium Level 1.7 11/22/20 04:35: White Blood Count 7.1, Red Blood Count 3.31, Hemoglobin 10.7, Hematocrit 32, Mean Corpuscular Volume 95, Mean Corpuscular Hemoglobin 32, Mean Corpuscular Hemoglobin Concent 34, Red Cell Distribution Width 14.5, Platelet Count 94, Mean Platelet Volume 12.9, Immature Granulocyte % (Auto) 1, Neutrophils (%) (Auto) 76, Lymphocytes (%) (Auto) 14, Monocytes (%) (Auto) 9, Eosinophils (%) (Auto) 0, Basophils (%) (Auto) 0, Neutrophils # (Auto) 5.4, Lymphocytes # (Auto) 1.0, Monocytes # (Auto) 0.6, Eosinophils # (Auto) 0.0, Basophils # (Auto) 0.0, Immature Granulocyte # (Auto) 0.0, Sodium Level 137, Potassium Level 3.9, Chloride Level 103, Carbon Dioxide Level 26, Anion Gap 8, Blood Urea Nitrogen 16, Creatinine 0.76, Estimat Glomerular Filtration Rate > 60, BUN/Creatinine Ratio 21, Glucose Level 106, Calcium Level 8.6, Phosphorus Level 3.0, Magnesium Level 1.7 11/23/20 06:05: White Blood Count 6.3, Red Blood Count 3.57, Hemoglobin 11.6, Hematocrit 35, Mean Corpuscular Volume 97, Mean Corpuscular Hemoglobin 33, Mean Corpuscular Hemoglobin Concent 34, Red Cell Distribution Width 14.6, Platelet Count 108, Mean Platelet Volume 11.5, Immature Granulocyte % (Auto) 1, Neutrophils (%) (Auto) 70, Lymphocytes (%) (Auto) 20, Monocytes (%) (Auto) 9, Eosinophils (%) (Auto) 1, Basophils (%) (Auto) 0, Neutrophils # (Auto) 4.4, Lymphocytes # (Auto) 1.3, Monocytes # (Auto) 0.6, Eosinophils # (Auto) 0.0, Basophils # (Auto) 0.0, Immature Granulocyte # (Auto) 0.0, Sodium Level 135, Potassium Level 3.4, Chloride Level 103, Carbon Dioxide Level 24, Anion Gap 8, Blood Urea Nitrogen 11, Creatinine 0.71, Estimat Glomerular Filtration Rate > 60, BUN/Creatinine Ratio 15, Glucose Level 104, Calcium Level 8.6, Corrected Calcium 9.2, Total Bilirubin 1.3, Aspartate Amino Transf (AST/SGOT) 30, Alanine Aminotransferase (ALT/SGPT) 17, Alkaline Phosphatase 50, Total Protein 5.9, Albumin 3.3 11/24/20 13:33: Lab Scanned Report Transfusion Reaction Form Discharge Home Medications: Active Scripts Active Reported Cartia Xt (Diltiazem HCl) 120 Mg Cap.er.24h 240 Mg PO HS TAKES 2 (120MG) CAPS Cartia Xt (Diltiazem HCl) 120 Mg Cap.er.24h 120 Mg PO DAILY Stool Softener (Docusate Sodium) 100 Mg Capsule 200 Mg PO 1200,2100 Centravites 50 Plus Tablet (Multivit-Min/FA/Lycopen/Lutein) 1 Each Tablet 1 Each PO 1200 Aspirin EC (Aspirin) 81 Mg Tablet.dr 81 Mg PO 1200 Eliquis (Apixaban) 5 Mg Tablet 5 Mg PO BID Instructions to patient/family Please see electronic discharge instructions given to patient. Clinical Quality Measures DVT/VTE Risk/Contraindication: Risk Factor Score Per Nursin RFS Level Per Nursing on Admit: 4+=Very High Contraindications-Pharm: Other *list below* Other: SURGERY MATHEW LINCOLN DO Nov 23, 2020 10:29
--- NOTE | 2020-11-23 11:00 | NUR ---
Patient transferred down to ARU with physical therapy at this time.
== END 2020-11-23 11:00 | DRG 481 ==
LOC: EDUNIT# 10:04 → ER 10:06 → 4TH 13:15 → ICU 21:25 → 4TH 11-20 07:48
PROVIDERS: ADMIT Internal Medicine; ATTEND Internal Medicine
PROC: 0QS704Z Reposition Left Upper Femur with Internal Fixation Device, Open Approach (ICD-10-PCS; principal; 2020-11-19 12:33)
DX: S72.012A Unspecified intracapsular fracture of left femur, initial encounter for closed fracture (principal); I42.0 Dilated cardiomyopathy; I50.22 Chronic systolic (congestive) heart failure; S20.20XA Contusion of thorax, unspecified, initial encounter; W19.XXXA Unspecified fall, initial encounter; M17.12 Unilateral primary osteoarthritis, left knee; G89.29 Other chronic pain; M54.2 Cervicalgia; I48.91 Unspecified atrial fibrillation; E78.00 Pure hypercholesterolemia, unspecified; I10 Essential (primary) hypertension; N40.0 Benign prostatic hyperplasia without lower urinary tract symptoms; F41.9 Anxiety disorder, unspecified; R09.02 Hypoxemia; I25.10 Atherosclerotic heart disease of native coronary artery without angina pectoris; D69.6 Thrombocytopenia, unspecified; K59.00 Constipation, unspecified; I95.1 Orthostatic hypotension; R42 Dizziness and giddiness; Z79.82 Long term (current) use of aspirin; I25.2 Old myocardial infarction; Z86.718 Personal history of other venous thrombosis and embolism; Z95.5 Presence of coronary angioplasty implant and graft
CPT/HCPCS: 36415; 51702; 70450; 71045; 71101; 72125; 73502; 73562; 76000; 80048; 80053; 81000; 83735; 84100; 84443; 85014; 85018; 85025; 85610; 85730; 86850; 86900; 86901; 93005; 94664; 94760

== ENCOUNTER 2020-11-23 09:19 | Inpatient (IN) | payer MEDICARE, OTHER ==
[~2020-11-23] VITALS: Ht 187.9 cm; Wt 66.9 kg
[~2020-11-23 09:19] MED LIST changes: +DILT120C53 PO
[2020-11-23] MEDS ORDERED: LACTULOSE SYRUP 10GM/15ML (ENULOSE) 30ML UDC PO PRN (10:30)
[2020-11-23] MEDS ORDERED: ALPRAZolam 0.25 MG (XANAX) TAB PO PRN (10:30)
[2020-11-23] MEDS ORDERED: guaiFENesin/CODEINE (ROBITUSSIN AC) 10ML UDC PO PRN (10:30)
[2020-11-23] MEDS ORDERED: BISACODYL 10 MG SUPP (DULCOLAX) PR PRN (10:30)
[2020-11-23] MEDS ORDERED: ONDANSETRON 4 MG (ZOFRAN) ORAL DISSOLVE TAB PO PRN (10:30)
[2020-11-23] MEDS ORDERED: MELATONIN 3 MG TABLET PO PRN ×2 (10:30→18:30)
[2020-11-23] MEDS ORDERED: CALCIUM CARBONATE 500 MG (TUMS) TAB.CHEW PO PRN ×2 (10:30→18:30)
[2020-11-23] MEDS ORDERED: diphenhydrAMINE 25 MG TAB (BENADRYL) PO PRN ×2 (10:30→18:30)
[2020-11-23] MEDS ORDERED: DOCUSATE SODIUM 100 MG (COLACE) CAP PO PRN ×2 (10:30→18:30)
[2020-11-23] MEDS ORDERED: FLEET ENEMA ADULT 1 EA BTL PR PRN (10:30)
[2020-11-23] MEDS ORDERED: LOPERAMIDE 2 MG (IMODIUM) TABLET PO PRN ×2 (10:30→18:30)
--- NOTE | 2020-11-23 10:45 | NUR ---
Pt admitted to room 233-1, with an admitting diagnosis of Lt hip repair, on 11/23/20 from 4th floor via w/c, accompanied by staff. TAJ ELKINS JR introduced to surroundings, call light, bed controls, phone, TV, temperature control, lights, meal times, smoking policy, visitor policy, side rail policy, bathrooms and showers. Patient Rights given to patient in the handbook. TAJ ELKINS JR verbalizes understanding that [facility] is not responsible for the loss or damage to any personal effects or valuables that are kept in the patients posession during their hospitalization. The following Patient Care Plans were discussed with the pt: Discharge Planning, Impaired Mobility, Self Care Deficit, Potential for fall/injury. TAJ ELKINS JR verbalizes understanding of Interdisciplinary Patient Education. Patient and/or family were informed about the Rapid Response Team and its purpose. Patient received Patient Rights Booklet, which includes Privacy Act Statement and Data Collection Information Summary.
--- NOTE | 2020-11-23 11:29 | Physical Therapy Evaluation ---
PT Evaluation-General Medical Diagnosis Admission Date Medical Diagnosis: Impacted subcapital fracture left hip Onset Date: Nov 18, 2020 Therapy Diagnosis Therapy Diagnosis: impaired mobility, strength, endurance Height/Weight Height (Feet): 6 Height (Inches): 2.00 Weight (Pounds): 163 Weight (Ounces): 2.0 Weight Bear Status Left Lower Extremity: Left Partial Weight Bearing Referral Physician: Christin Puente DO Reason for Referral: Evaluation/Treatment Medical History Additional Medical History Past Medical History Surgeries: Coronary Stent, Orthopedic Cardiac: Atrial Fibrillation, Deep Vein Thrombosis, Heart Attack, High Chol esterol, Hypertension Neurological: Vertigo Reproductive: No Genitourinary: Benign Prostatic Hyperpl Gastrointestinal: Polyps Musculoskeletal: Chronic Back Pain Psychosocial: Anxiety Reviewed History: Yes Social History Home: Single Level Current Living Status: Spouse Entry Into Home: Stairs With Railing PT Steps Into Home: 2 Prior Prior Level of Function SCALE: Activities may be completed with or without assistive devices. 7-Gfgeawgceh-utewgim completes the activity by him/herself with no assistance from a helper. 5-Set-up or Clean-up Assistance-helper sets up or cleans up; patient completes activity. Counselor assists only prior to or following the activity. 4-Supervision or Touching Assistance-helper provides verbal cues and/or touching/steadying and/or contact guard assistance as patient completes activity. Assistance may be provided throughout the activity or intermittently. 3-Partial/Moderate Assistance-helper does LESS THAN HALF the effort. Counselor l ifts, holds or supports trunk or limbs, but provides less than half the effort. 2-Substantial/Maximal Assistance-helper does MORE THAN HALF the effort. Counselor lifts or holds trunk or limbs and provides more than half the effort. 4-Nailxaikt-qgtnav does ALL the effort. Patient does none of the effort to complete the activity. Or, the assistance of 2 or more helpers is required for t he patient to complete the activity. If activity was not attempted, code reason: 7-Patient Refused. 9-Not Applicable-not attempted and the patient did not perform the activity before the current illness, exacerbation or injury. 10-Not Attempted due to Environmental Limitations-(lack of equipment, weather restraints, etc.). 88-Not Attempted due to Medical Conditions or Safety Concerns. Bed Mobility: 6 Transfers (B,C,W/C): 6 Gait: 6 Stairs: 6 Indoor Mobility (Ambulation): Independent Stairs: Independent PT Evaluation-Current Subjective Patient in bed pre tx, agrees to PT, has no pain at rest. Will be co-treating with OT due to poor patient mobility, strength, endurance, poor activity tolerance, drop in O2 with activity, coordinate UE and LE during activity, safety and decrease risk of falls. Pt/Family Goals to be independent at home. Objective Patient Orientation: Person, Place, Situation ROM/Strength ROM Lower Extremities RLE WNL Strength Lower Extremities RLE 4+/5 gross Sensory Vision: Functional Hearing: Impaired Sensation Right Lower Extremit: Intact Sensation Left Lower Extremity: Intact Transfers Roll Left & Right (QC): 3 Sit to Lying (QC): 3 Lying to Sitting/Side of Bed(Q: 3 Sit to Stand (QC): 4 Chair/Iux-qz-Wbjvj Xfer(QC): 4 Toilet Transfer (QC): 4 Car Transfer (QC): 3 Patient performs bed mobility and supine <-> sit with min assist, sit <-> stand CGA, transfers CGA, car transfer min assist. Patient needs occasional cues for hand placement and positioning. Gait Does the Patient Walk?: Yes Mode of Locomotion: Walk Anticipated Mode of Locomotion: Walk Walk 10 feet (QC): 4 Walk 50 ft with 2 Turns(QC): 88 Walk 150 ft (QC): 88 Walking 10ft/uneven surface-QC: 4 Distance: 35', 10'x2 Gait Assistive Device: FWW Comments/Gait Description Patient can ambulate 35' with a rolling walker with CGA (including 10' over an uneven surface). Patient's arms wear out quickly and needs several standing rest breaks due to fatigue. Patient is complaint with his PWB on the left leg Wheelchair Training Does the Pt Use a Wheelchair?: Yes Distance: 50' Wheel 50 ft with 2 turns (QC): 4 Wheel 150 ft (QC): 88 Stairs #of Steps: 1 1 Step (curb) (QC): 4 4 Steps (QC): 88 12 Steps (QC): 88 Walking Assistive Device: Walker Patient can go up and down 1 step using a rolling walker with CGA and cues for safety Balance Sitting Static: Normal Sitting Dynamic: Normal Standing Static: Fair Standing Dynamic: Fair Picking up an Object (QC): 88 Treatment PT performed bed mobility and transfers, ambulation, WC mobility, stairs, assist with transfers for toilet (patient had to have a BM), OT worked on toileting, UE positioning and safety during ambulation Assessment/Needs Patient has impaired mobility, strength, endurance post him sx. He is compliant with his weight bearing status. Patient in room with OT post tx. Rehab Potential: Fair PT Short Term Goals Short Term Goals Time Frame: Nov 30, 2020 Roll Left & Right: 4 Sit to lyin Lying to sitting on side of be: 4 Sit to stand: 4 Chair/zjh-jt-rjxdl transfer: 4 Walk 10 feet: 4 Walk 50 feet with two turns: 4 PT Longterm Goals Aircraft Landing Gear Inspector Goals PT Aircraft Landing Gear Inspector Goals Time Frame: Dec 14, 2020 Roll Left & Right (QC): 6 Sit to Lying (QC): 6 Lying-Sitting on Side/Bed(QC): 6 Sit to Stand (QC): 6 Chair/Hea-ed-Hqspz Xfer(QC): 6 Toilet Transfer (QC): 6 Car Transfer (QC): 6 Does the Patient Walk: Yes Walk 10 feet (QC): 6 Walk 50ft with 2 Turns (QC): 6 Walk 150 ft (QC): 6 Walking 10ft on Uneven Surface: 6 1 Step (curb) (QC): 6 4 Steps (QC): 6 12 Steps (QC): 6 Picking up an Object (QC): 88 Wheel 50 feet with 2 turns (QC: 9 Wheel 150 feet: 9 PT Plan Problem List Problem List: Activity Tolerance, Functional Strength, Safety, Balance, Gait, Transfer, Bed Mobility, ROM Treatment/Plan Treatment Plan: Continue Plan of Care Treatment Plan: Bed Mobility, Education, Functional Activity Virgilio, Functional Strength, Group Therapy, Gait, Safety, Therapeutic Exercise, Transfers Treatment Duration: Nov 30, 2020 Frequency: At least 5 of 7 days/Wk (IRF) Estimated Hrs Per Day: 1.5 hours per day Patient and/or Family Agrees t: Yes Safety Risks/Education Patient Education: Gait Training, Transfer Techniques, Steps, Correct Positioning, Safety Issues Teaching Recipient: Patient Teaching Methods: Demonstration, Discussion Response to Teaching: Reinforcement Needed Discharge Recommendations Plan Patient will perform bed mobility and transfer training, balance and endurance training, functional strengthening, stair training, gait training, and e ducation, to improve functional mobility and independence at home. Therapy Discharge Recommendati: Scheduled Assistance, Home & Family Time/GCodes Time In: 1030 Time Out: 1115 Total Billed Treatment Time: 35 Total Billed Treatment 1 visit EVM 10' FA 25' (only charge one unit) PT eval from [id number], OT eval from [id number], co-treat from [id number] RAVEN LOAIZA PT Nov 23, 2020 11:29
--- NOTE | 2020-11-23 12:04 | Occupational Therapy Eval ---
OT Evaluation-General/PLF Medical Diagnosis Admission Date Medical Diagnosis: Impacted subcapital fracture left hip Onset Date: Nov 18, 2020 Therapy Diagnosis Therapy Diagnosis: decreased ADL status, weakness Height/Weight Height (Feet): 6 Height (Inches): 2.00 Weight (Pounds): 163 Weight (Ounces): 2.0 Referral Physician: Christin Puente DO Referral Reason: Evaluation/Treatment Medical History Additional Medical History a fib, cardiac stent, DVT, IA, HTN, high chol, CBP, anxiety Current History Fell at home, backward and hit ribs/ hip on L side, screw fixation of L hip 11/19 Social History Home: Single Level Current Living Status: Spouse Entry Into Home: Stairs With Railing Steps Into Home: 2 ADL-Prior Level of Function SCALE: Activities may be completed with or without assistive devices. 8-Turghipbij-nqqwzab completes the activity by him/herself with no assistance from a helper. 5-Set-up or Clean-up Assistance-helper sets up or cleans up; patient completes activity. [place] assists only prior to or following the activity. 4-Supervision or Touching Assistance-helper provides verbal cues and/or touching/steadying and/or contact guard assistance as patient completes activity. Assistance may be provided throughout the activity or intermittently. 3-Partial/Moderate Assistance-helper does LESS THAN HALF the effort. [place] lifts, holds or supports trunk or limbs, but provides less than half the effort. 2-Substantial/Maximal Assistance-helper does MORE THAN HALF the effort. [place] lifts or holds trunk or limbs and provides more than half the effort. 9-Qztjmrsnc-hvauie does ALL the effort. Patient does none of the effort to complete the activity. Or, the assistance of 2 or more helpers is required for the patient to complete the activity. If activity was not attempted, code reason: 7-Patient Refused. 9-Not Applicable-not attempted and the patient did not perform the activity before the current illness, exacerbation or injury. 10-Not Attempted due to Environmental Limitations-(lack of equipment, weather restraints, etc.). 88-Not Attempted due to Medical Conditions or Safety Concerns. ADL PLOF Comments Pt states IND with use of walker intermittently and IND with showering/ dressing tasks. Pt drives short distances, though drives the further distance. Self Care: Independent Functional Cognition: Independent DME/Equipment: Grab Bars, Shower, Tall Toilet DME/Equipment Comments walker OT Current Status Subjective Pt agreeable to OT tx, reports pain in his UEs due to weakness with ambulation. Mental Status/Objective Patient Orientation: Person, Place, Time, Situation Attachments: Addison Catheter, Telemetry Current Glasses/Contacts: Yes Hearing Aids: No Dentures/Partials: Yes Hand Dominance: Right Upper Extremity ROM WFL, RUE shoulder flexion to approx 140 degrees, LUE shoulder flexion to approx 90 degrees Upper Extremity Coordination WFL Upper Extremity Sensation Pt reports numbness in BUEs after raising overhead and after using walker for ambulation Upper Extremity Strength grossly 3+/5 ADL-Treatment Eating (QC): 7 Oral Hygiene (QC): 5 (set up assist at tray table.) Shower/Bathe Self (QC): 4 (Sponge bath, CGA standing at FWW to wash buttocks.) Upper Body Dressing (QC): 3 (min A, pt able to thread BUEs and head, slight assistance with pulling down over trunk) Lower Body Dressing (QC): 3 (CGA in stand at FWW, Pt able to thread BLEs with min A (LLE)) On/Off Footwear (QC): 3 (Pt able to don/doff gripper socks, min A with L sock for grippers to be on bottom.) Toileting Hygiene (QC): 4 (CGA in stand, pt able to manage clothing and hygiene.) Other Treatments OT/PT cotreat due to skill of 2 clinicians which a rehabilitation supervisor could not perform in order to coordinate UE/LE with tasks, and due to pt's limitations in mobility, transfers, strength and endurance. OT focused on ADLS, UE placement, and cues for sequencing and safety while PT focused on LE placement, gross overall movements, and transfers. Pt completed functional transfers and ambulation into/out of car simulation, over uneven surface and up/down 1 step. P t used FWW to ambulate into room, requesting to use toilet. Pt completed toileting, then transferred to recliner. [id number] Pt completed sponge bath seated at recliner, required frequent cues due to distractibility. Pt completed dressing as outlined above, then oral care with set up. Post tx, pt seated in recliner, call light in reach and all needs met. Education OT Patient Education: Correct positioning, Energy conservation, Modified ADL techniques, Progress toward Goal/Update tx plan, Purpose of tx/functional activities, Rehab process Teaching Recipient: Patient Teaching Methods: Discussion Response to Teaching: Verbalize Understanding OT Short Term Goals Short Term Goals Time Frame: Dec 04, 2020 Upper body dressin Lower body dressin Putting on/taking off footwear: 5 OT Link Trainer Goals Jail Goals Time Frame: Dec 18, 2020 Eating (QC): 6 Oral Hygiene (QC): 6 Toileting Hygiene (QC): 6 Shower/Bathe Self (QC): 6 Upper Body Dressing (QC): 6 Lower Body Dressing (QC): 6 On/Off Footwear (QC): 6 Additional Goals: 1-Demonstrate ADL Tasks, 2-Verbalize Understanding, 3-ImproveStrength/Virgilio 1=Demonstrate adherence to instructed precautions during ADL tasks. 2=Patient will verbalize/demonstrate understanding of assistive devices/modifications for ADL. 3=Patient will improve strength/tolerance for activity to enable patient to perform ADL's. OT Education/Plan Problem List/Assessment Assessment: Decreased Activ Tolerance, Decreased UE Strength, Impaired Funct Balance, Impaired I ADL's, Impaired Self-Care Skills Discharge Recommendations Plan/Recommendations: Continue POC Treatment Plan/Plan of Care Treatment,Training & Education: Yes Patient would benefit from OT for education, treatment and training to promote independence in ADL's, mobility, safety and/or upper extremity function for ADL's. Plan of Care: ADL Retraining, Functional Mobility, UE Funct Exercise/Act Treatment Duration: Dec 18, 2020 Frequency: At least 5 of 7 days/Wk (IRF) Estimated Hrs Per Day: 1.5 hours per day Rehab Potential: Good Time/GCodes Start Time: 10:55 Stop Time: 11:55 Total Time Billed (hr/min): 60 Billed Treatment Time [id number] OT eval, [id number] cotreat, [id number] OT tx. 1, EVM (10'), FA (15'), ADL 2 (35') RADHA RUIZ OT Nov 23, 2020 12:04
--- NOTE | 2020-11-23 12:37 | NUR ---
I COMPLETED THE MED REC ON 11-19-2020 WHEN THE PT WAS IN ICU 9.PLEASE SEE MY NOTE FROM THAT DATE FOR MORE INFORMATION
--- NOTE | 2020-11-23 13:41 | Occupational Ther Daily Note ---
OT Current Status-Daily Note Subjective Pt alert, sitting in recliner. Pt agrees to therapy. No c/o pain at this time. C/o being jittery with ambulation. Mental Status/Objective Patient Orientation: Person, Place, Time, Situation ADL-Treatment Co-treat with PT ([id number]), skills of 2 clinicians for skilled care and instruction due to debility, decreased activity tolerance and decreased mobility. PT focusing on mobility, transfers and B LE strengthening while OT focused on eating, B hand placement for mobility and transfers. Pt able to open packages and use regular utensils to eat, independently. Pt requires assist with sit to stand and SPT due to decreased balance and fall risk. Pt takes increased time to complete all tasks due to multiple recovery breaks and slow movements. After therapy, pt left in care of PT. All needs met in room. Therapy Code Descriptions/Definitions Functional Mcdonald Measure: 0=Not Assessed/NA 4=Minimal Assistance 1=Total Assistance 5=Supervision or Setup 2=Maximal Assistance 6=Modified Mcdonald 3=Moderate Assistance 7=Complete IndependenceSCALE: Activities may be completed with or without assistive devices. 8-Yktrpypjob-zbdbzmj completes the activity by him/herself with no assistance from a helper. 5-Set-up or Clean-up Assistance-helper sets up or cleans up; patient completes activity. [place] assists only prior to or following the activity. 4-Supervision or Touching Assistance-helper provides verbal cues and/or touching/steadying and/or contact guard assistance as patient completes activity. Assistance may be provided throughout the activity or intermittently. 3-Partial/Moderate Assistance-helper does LESS THAN HALF the effort. [place] lifts, holds or supports trunk or limbs, but provides less than half the effort. 2-Substantial/Maximal Assistance-helper does MORE THAN HALF the effort. [place] lifts or holds trunk or limbs and provides more than half the effort. 0-Qciihtmlm-vnuyvc does ALL the effort. Patient does none of the effort to complete the activity. Or, the assistance of 2 or more helpers is required for the patient to complete the activity. If activity was not attempted, code reason: 7-Patient Refused. 9-Not Applicable-not attempted and the patient did not perform the activity before the current illness, exacerbation or injury. 10-Not Attempted due to Environmental Limitations-(lack of equipment, weather restraints, etc.). 88-Not Attempted due to Medical Conditions or Safety Concerns. Eating (QC): 6 OT Short Term Goals Short Term Goals Time Frame: Dec 04, 2020 Upper body dressin Lower body dressin Putting on/taking off footwear: 5 OT Enamel Shader Goals Nursing Home Goals Time Frame: Dec 18, 2020 Eating (QC): 6 Oral Hygiene (QC): 6 Toileting Hygiene (QC): 6 Shower/Bathe Self (QC): 6 Upper Body Dressing (QC): 6 Lower Body Dressing (QC): 6 On/Off Footwear (QC): 6 Additional Goals: 1-Demonstrate ADL Tasks, 2-Verbalize Understanding, 3- ImproveStrength/Virgilio 1=Demonstrate adherence to instructed precautions during ADL tasks. 2=Patient will verbalize/demonstrate understanding of assistive devices/modifications for ADL. 3=Patient will improve strength/tolerance for activity to enable patient to perform ADL's. OT Education/Plan Problem List/Assessment Assessment: Decreased Activ Tolerance, Decreased Safety Aware, Impaired Funct Balance, Impaired Self-Care Skills Discharge Recommendations Plan/Recommendations: Continue POC Treatment Plan/Plan of Care Patient would benefit from OT for education, treatment and training to promote independence in ADL's, mobility, safety and/or upper extremity function for ADL's. Plan of Care: ADL Retraining, Functional Mobility, UE Funct Exercise/Act Treatment Duration: Dec 18, 2020 Frequency: At least 5 of 7 days/Wk (IRF) Estimated Hrs Per Day: 1.5 hours per day Rehab Potential: Fair Time/GCodes Start Time: 13:00 Stop Time: 13:30 Total Time Billed (hr/min): 30 Billed Treatment Time 1 visit-ADL 1 (15 min) FA 1 (15 min) GEOVANY OLSON Nov 23, 2020 13:41
--- NOTE | 2020-11-23 13:56 | Physical Therapy Daily Note ---
PT Daily Note-Current Subjective Patient in recliner pre tx, agrees to PT, has no complaints of pain at rest. Will be co-treating with OT for part of tx due to poor patient mobility, strength, endurance, coordinate UE and LE during activity, poor activity tolerance, safety and decrease risk of falls. Appearance Patient in bed post tx with nurse call, phone, tray, all needs met. Mental Status Patient Orientation: Person, Place, Situation Attachments: Addison Catheter Transfers SCALE: Activities may be completed with or without assistive devices. 9-Iwmatscnju-cfzhtwu completes the activity by him/herself with no assistance from a helper. 5-Set-up or Clean-up Assistance-helper sets up or cleans up; patient completes activity. [place] assists only prior to or following the activity. 4-Supervision or Touching Assistance-helper provides verbal cues and/or touching/steadying and/or contact guard assistance as patient completes activity. Assistance may be provided throughout the activity or intermittently. 3-Partial/Moderate Assistance-helper does LESS THAN HALF the effort. [place] lifts, holds or supports trunk or limbs, but provides less than half the effort. 2-Substantial/Maximal Assistance-helper does MORE THAN HALF the effort. [place] lifts or holds trunk or limbs and provides more than half the effort. 7-Lgssppnob-lmionj does ALL the effort. Patient does none of the effort to complete the activity. Or, the assistance of 2 or more helpers is required for the patient to complete the activity. If activity was not attempted, code reason: 7-Patient Refused. 9-Not Applicable-not attempted and the patient did not perform the activity before the current illness, exacerbation or injury. 10-Not Attempted due to Environmental Limitations-(lack of equipment, weather restraints, etc.). 88-Not Attempted due to Medical Conditions or Safety Concerns. Roll Left & Right (QC): 6 Sit to Lying (QC): 3 Sit to Stand (QC): 4 Chair/Dvf-gj-Nvblu Xfer(QC): 4 Weight Bearing Left Lower Extremity: Left Partial Weight Bearing Gait Training Distance: 60' Walk 10 feet (QC): 4 Walk 50 ft with 2 Turns(QC): 4 Gait Persons Needed: 1 Gait Assistive Device: FWW slow, several standing rest breaks, WC follow Wheelchair Training Does the Pt Use a Wheelchair?: Yes Wheel 50 ft with 2 turns (QC): 4 Type of Wheelchair: Manual 150', 100' Exercises Seated Therapy Exercises: Ankle pumps, Long arc quads, Hip flexion, Hip abd/add (with ball and YTB) Seated Reps: 20 Standing: Hip Abduction (just left leg), Heel/toe raises, Mini squats Treatments PT worked on bed mobility and transfers, ambulation, WC mobility, LE exercise, O T worked on UE positioning and safety during ambulation and transfers and WC mobility Assessment Current Status: Fair Progress good AROM in LLE PT Short Term Goals Short Term Goals Time Frame: Nov 30, 2020 Roll Left & Right: 4 Sit to lyin Lying to sitting on side of be: 4 Sit to stand: 4 Chair/heq-jd-tdkis transfer: 4 Walk 10 feet: 4 Walk 50 feet with two turns: 4 PT Last Sorter Goals Group Home Goals PT Last Sorter Goals Time Frame: Dec 14, 2020 Roll Left & Right (QC): 6 Sit to Lying (QC): 6 Lying-Sitting on Side/Bed(QC): 6 Sit to Stand (QC): 6 Chair/Gjo-fe-Uyymm Xfer(QC): 6 Toilet Transfer (QC): 6 Car Transfer (QC): 6 Does the Patient Walk: Yes Walk 10 feet (QC): 6 Walk 50ft with 2 Turns (QC): 6 Walk 150 ft (QC): 6 Walking 10ft on Uneven Surface: 6 1 Step (curb) (QC): 6 4 Steps (QC): 6 12 Steps (QC): 6 Picking up an Object (QC): 88 Wheel 50 feet with 2 turns (QC: 9 Wheel 150 feet: 9 PT Plan Problem List Problem List: Activity Tolerance, Functional Strength, Safety, Balance, Gait, Transfer, Bed Mobility, ROM Treatment/Plan Treatment Plan: Continue Plan of Care Treatment Plan: Bed Mobility, Education, Functional Activity Virgilio, Functional Strength, Group Therapy, Gait, Safety, Therapeutic Exercise, Transfers Treatment Duration: Nov 30, 2020 Frequency: At least 5 of 7 days/Wk (IRF) Estimated Hrs Per Day: 1.5 hours per day Patient and/or Family Agrees t: Yes Safety Risks/Education Patient Education: Gait Training, Transfer Techniques, Correct Positioning, W/C Management, Safety Issues Teaching Recipient: Patient Teaching Methods: Demonstration, Discussion Response to Teaching: Reinforcement Needed Time/GCodes Time In: 1300 Time Out: 1350 Total Billed Treatment Time: 50 Total Billed Treatment 1 visit EX 20' FA 30' co-treat from [id number] RAVEN LOAIZA PT Nov 23, 2020 13:56
--- NOTE | 2020-11-23 15:27 | ST Cognitive Linguistic Eval ---
Speech Evaluation-General Medical Diagnosis Impacted subcapital fracture left hip Onset Date: Nov 18, 2020 Therapy Diagnosis Therapy Diagnosis: Cognitive-communication Referral Referring Physician: Dr. Puente Medical History Reviewed History: Yes Social History Current Living Status: Spouse Speech PLF-Current Status Prior Level of Function Patient lives in his home with his where he was independent for much of his daily needs. Subjective Patient was in pain, however he was cooperative with the cognitive assessment. Language Eval: Auditory Comprehends Simple Yes/No Ques: Functional Indent/Objects Multiple Concepcion: Functional Ident/Pics in Multiple Concepcion: Functional Follows 1-Step Commands: Functional Follows Complex Directions: Functional Follows General Conversations: Functional Language Eval: Verbal Language Completes Spontaneous Greeting: Functional Produces Auto, Serial Info: Functional Imitates Simple Words/Phrases: Functional Word Finding: Functional Requests Basic Needs: Functional States Basic Personal Info: Functional Expresses Complex Ideas: Functional Objective Cognitive Domain Attention: WNL Memory: Mild Problem Solving: Functional Executive Functions: WNL Visuospatial Skills: WNL Composite Severity Rating: WNL Clock Drawing Severity Rating: WNL Objective Formal/Standardized Tests [facility] Status ([facility]) Results 27/30, within normal range of function Oral Motor/Speech Production Within Normal Limits Impression Patient is an 85 y/o male who was admitted to the ARU s/p fractured hip due to a fall. Patient was given the UMS at bedside with a score of 27/30 obtained. This score is within the normal range of function. The patient does not require further ST services at this time. Speech Patient Assess Expression of Ideas/Wants: Expression (4) Understanding Verbal Content: Understands (4) Brief Interview-Mental Status: Yes Repetition of Three Words: Three (3) Temporal Orientation: Year: Correct (3) Temporal Orientation: Month: Accurate within 5 days(2) Temporal Orientation: Day: Correct (1) Recall : Wear to say "Sock": Yes,after cueing (1) Recall : Color: Yes, after cueing (1) Recall : Bed: No, could not recall (0) Memory/Recall Ability: Current season, That he or she is in a hsp/hsp unit Speech-Plan Patient/Family Goals Patient/Family Goals: Patient plans on returning to his home where he lives with his . Treatment Plan Speech Therapy Treatment Plan: Discontinue ST Treatment Duration: Nov 23, 2020 Frequency: 1 time per week Estimated Hrs Per Day: .25 hour per day Rehab Potential: Fair Barriers to Learning: Patient's age Pt/Family Agrees to Plan: Yes Safety Risks/Education Teaching Recipient: Patient Teaching Methods: Discussion Response to Teaching: Verbalize Understanding Education Topics Provided: Safety within his room, communication of wants/needs Time Speech Therapy Time In: 15:15 Speech Therapy Time Out: 15:30 Total Billed Time: 15 Billed Treatment Time 1, RHIANNA [place] Nov 23, 2020 15:27
[2020-11-23] MEDS: HYDROcodone/APAP 10 MG/325 MG (LORTAB) TAB PO PRN (16:39)
[2020-11-23 17:50] VITALS: BP 110/71
[2020-11-23 18:17] VITALS: BP 136/80
[2020-11-23] MEDS ORDERED: HYDROcodone/APAP 5 MG/325 MG (LORTAB) TAB PO PRN (18:30)
[2020-11-23] MEDS ORDERED: ACETAMINOPHEN 500 MG TAB (TYLENOL) PO PRN (18:30)
[2020-11-23] MEDS ORDERED: fentaNYL INJECTION 100 MCG/2 ML AMP IVP PRN (18:30)
[2020-11-23] MEDS ORDERED: ONDANSETRON 4 MG/2 ML (SDV) Z0FRAN IVP PRN (18:30)
[2020-11-23] MEDS ORDERED: HYDROcodone/APAP 10 MG/325 MG (LORTAB) TAB PO PRN (18:30)
--- NOTE | 2020-11-23 18:30 | PM&R Post Admission Assessment ---
PM&R HP Date of Visit: Nov 23, 2020 Time of Visit: 11:00 History of Present Illness CC: Left hip fracture HPI: This is an 85yoWM who presents to the IRF unit for aggressive therapy in order to recover ADL's and ambulatory skills after left hip fracture in order to be able to return home with to live independently. Currently he is doing very well and denies constipation since laxatives were successful in resolving post op constipation 2 days ago on med-surg. Cardiology will continue monitoring due to AF w/RVR. Patient denies pain as long as he takes pain meds. PLOF was walking with use of walker. Acute care DC note: Hospital course: Pt had a lengthy hospital course, complicated after he came in with a left hip fracture after a fall, had AFIB with RVR requiring cardiology to evaluate him and he underwent an uncomplicated surgery repair by Dr. Petit. He was able to regain function, and to participate in PT and OT, his bowels did move after multiple laxatives and he was discharged to inpatient rehab to continue recovery. He lives at home with his of 61 years and currently he is a bit worn out working with PT. He has received some pain medication and is overall doing much better. Past Sjjqhxl-Jcwyae-Fbrsqa Hx Past Med/Social Hx: Reviewed Nursing Past Med/Soc Hx, Reviewed and Corrections made Patient Social History Marrital Status: (61 years) Employed/Student: retired Alcohol Use: Denies Use Alcohol Beverage of Choice: Whiskey Recreational Drug Use: No Smoking Status: Never a Smoker Former Smoker, Quit: Dec 11, 1977 Type Used: Cigarettes Physical Abuse Screen: No Sexual Abuse: No Recent Foreign Travel: No Contact w/other who traveled: No Recent Hopitalizations: No Recent Infectious Disease Expo: No Immunizations Up To Date Tetanus Booster (TDap): Unknown Pediatric: No Date of Pneumonia Vaccine: Jul 29, 2020 Date of Influenza Vaccine: Aug 20, 2020 Seasonal Allergies Seasonal Allergies: No Past Medical History Surgeries: Coronary Stent, Orthopedic Cardiac: Atrial Fibrillation, Deep Vein Thrombosis, Heart Attack, High [place]terol, Hypertension Neurological: Vertigo Reproductive: No Genitourinary: Benign Prostatic Hyperpl Gastrointestinal: Polyps Musculoskeletal: Chronic Back Pain Psychosocial: Anxiety History of Blood Disorders: No Adverse Reaction to Blood Agarwal: No Family History Patient reports no known family medical history. 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 Roll Left to Right: 6 Sit to Lyin Lying to Sitting/Side of Bed: 3 Sit to Stand: 4 Chair/Kco-fc-Vwpph Xfer: 4 Car Transfer: 3 Does the Patient Walk: Yes Mode of Locomotion: Walk Anticipated Mode of Locomotion: Walk Walk 10 feet: 4 Walk 50 ft with 2 Turns: 4 Walk 150 ft: 88 Walking 10ft on uneven surface: 4 Gait Assistive Device: FWW Does the Pt Use a Wheelchair: Yes Wheelchair Distance: 50' Wheel 50 ft with 2 turns: 4 Wheel 150 ft: 88 Type of Wheelchair: Manual #of Steps: 1 1 Step (curb): 4 4 Steps: 88 Walking Assistive Device: Walker 12 Steps: 88 Picking up an Object: 88 Eatin Oral Hygiene: 5 (set up assist at tray table.) Shower/Bathe Self: 4 (Sponge bath, CGA standing at FWW to wash buttocks.) Upper Body Dressin (min A, pt able to thread BUEs and head, slight assistance with pulling down over trunk) Lower Body Dressin (CGA in stand at FWW, Pt able to thread BLEs with min A (LLE)) On/Off Footwear: 3 (Pt able to don/doff gripper socks, min A with L sock for grippers to be on bottom.) Toileting Hygiene: 4 (CGA in stand, pt able to manage clothing and hygiene.) PM&R Allergy/Meds/Data Review Allergies Coded Allergies: Vqrxuyb-Wmk-Cmg Reductase Inhibitor (Unverified Allergy, Unknown, 03/12/19) codeine (Unverified Adverse Reaction, Mild, Altered taste, 02/13/15) Uncoded Allergies: beta blockers (Adverse Reaction, Severe, severe bradycardia, 04/07/20) Home Medications Scheduled Apixaban (Eliquis), 5 MG PO BID, (Reported) Aspirin (Aspirin EC), 81 MG PO 1200, (Reported) Diltiazem HCl (Cartia Xt), 120 MG PO DAILY, (Reported) Diltiazem HCl (Cartia Xt), 240 MG PO HS, (Reported) Docusate Sodium (Stool Softener), 200 MG PO 1200,2100, (Reported) Multivit-Min/FA/Lycopen/Lutein (Centravites 50 Plus Tablet), 1 EACH PO 1200, (Reported) Discontinued Medications Digoxin (Digoxin), 250 MCG PO DAILY Discontinued Reason: No Longer Taking Diltiazem HCl (Cardizem Cd), 120 MG PO DAILY Discontinued Reason: Duplicate Order Furosemide (Lasix), 80 MG PO DAILY Discontinued Reason: No Longer Taking Potassium Chloride (Potassium Chloride), 20 MEQ PO DAILY Discontinued Reason: No Longer Taking Spironolactone (Spironolactone), 25 MG PO DAILY Discontinued Reason: No Longer Taking Current Medications Current Medications Reviewed Review of Systems Constitutional: see HPI, weakness Cardiovascular: palpitations Musculoskeletal: joint pain Physical Exam Physical Exam Vital Signs Vital Signs - First Documented 11/23/20 11/23/20 11/23/20 12:53 17:45 17:50 Temp 36.0 Pulse 90 Resp 18 B/P (MAP) 110/71 Pulse Ox 94 O2 Delivery Room Air Capillary Refill : Less Than 3 Seconds Height, Weight, BMI Height: 6'2.00" Weight: 163lbs. 2.0oz. 73.232676iv; 18.94 BMI Method:Stated General Appearance: No Apparent Distress, WD/WN, Chronically ill, Thin, Other (frail) Eyes: Bilateral Eye Normal Inspection, Bilateral Eye PERRL HEENT: PERRL/EOMI, Normal ENT Inspection, Pharynx Normal Neck: Full Range of Motion, Normal Inspection, Non Tender, Supple, Carotid Bruit Respiratory: Chest Non Tender, Lungs Clear, Normal Breath Sounds, No Accessory Muscle Use, No Respiratory Distress Cardiovascular: No Edema, No Gallop, No JVD, No Murmur, Normal Peripheral Pulses, Irregularly Irregular, Tachycardia Gastrointestinal: Normal Bowel Sounds, No Organomegaly, No Pulsatile Mass, Non Tender, Soft Back: Normal Inspection, No CVA Tenderness, No Vertebral Tenderness Extremity: Normal Capillary Refill, Normal Inspection, Normal Range of Motion (except left leg), Non Tender, No Calf Tenderness, No Pedal Edema Neurologic/Psychiatric: Alert, Oriented x3, No Motor/Sensory Deficits, Normal Mood/Affect, Motor Weakness (generalized 4/5 all extremities left leg 1/5) Skin: Normal Color, Warm/Dry Lymphatic: No Adenopathy PM&R Medical Assessment & Plan REHAB/MEDICAL ASSESSMENT AND PLAN: REHAB IMPAIRMENT GROUP: Left hip fracture ETIOLOGIC DIAGNOSIS: Left hip fracture The comorbidities that impact the patients function and/or functional outcome by: advanced age, frail status, AF w/RVR, anemia post op, [place] REHAB PLAN: The patient is being admitted to our comprehensive inpatient rehabilitation facility and can tolerate the intensity of service consisting of at least: 180 minutes of therapy a day, 5 out of 7 days a week Rehab treatment will consist of: PT OT will focus on regaining function with use of AD and energy conservation in order to recover from the left hip fracture to be able to return home to live independently The patient/family has a good understanding of our discharge process and will benefit from an interdisciplinary inpatient rehabilitation program. The patient has potential to make improvement and is in need of at least two of the following multidisciplinary therapies including but not limited to physical, occupational, speech, and prosthetics and orthotics. Additionally the patient will need services from respiratory, nutritional services, wound care, psychology, etc. (Customize this to each patient). Given the patients complex condition and risk of further medical complications, rehabilitation services cannot be safely or effectively provided at a lower level of care such as a fpc facility. BARRIERS TO DISCHARGE: Advanced age ESTIMATED LOS: 14 days DISPOSITION: Home with RELEVANT CHANGES SINCE PREADMISSION SCREENING: I have compared the patients medical and functional status at the time of the preadmission screening and there are: no changes PROGNOSIS: Fair REHABILITATION GOALS: 1.PT OT will focus on regaining function with use of AD and energy conservation in order to recover from the left hip fracture to be able to return home to live independently All the above goals were reviewed with the patient and he/she is in agreement. By signing this document, I acknowledge that I have personally performed a full physical examination on this patient within 24 hours of admission to this inpatient rehabilitation facility and have determined the patient to be able to tolerate the above course of treatment at an intensive level for a reasonable period of time. I will be completing a detailed individualized Plan of Care for this patient by day #4 of the patients stay based upon the Preadmission Screen, the Post-Admission Evaluation, and the therapy evaluations. Admission Dx/Comorbidities: (1) Closed left hip fracture Status: Acute ICD Codes: S72.002A - Fracture of unspecified part of neck of left femur, i nitial encounter for closed fracture (2) Fall Status: Acute ICD Codes: W19.XXXA - Unspecified fall, initial encounter (3) Traumatic ecchymosis of rib Status: Acute ICD Codes: S20.20XA - Contusion of thorax, unspecified, initial encounter (4) Chronic back pain Status: Chronic ICD Codes: M54.9 - Dorsalgia, unspecified; G89.29 - Other chronic pain (5) Coronary artery disease Status: Chronic ICD Codes: I25.10 - Atherosclerotic heart disease of [place] coronary artery without angina pectoris (6) Atrial fibrillation with rapid ventricular response Status: Acute ICD Codes: I48.91 - Unspecified atrial fibrillation Assessment/Plan Assessment and Plan Assess & Plan/Chief Complaint Assessment: Left hip fracture s/p repair AF w/RVR Post op anemia Frail status Advanced age Chronic back pain Plan: Pain meds IRF protocol Monitor labs Monitor AF MATHEW LINCOLN DO Nov 23, 2020 18:29
[2020-11-23] MEDS: polyethylene glycoL POWDER 17 GM (MIRALAX) PACK PO SCH (21:00)
[2020-11-23] MEDS: DOCUSATE SODIUM 100 MG (COLACE) CAP PO SCH (21:00)
[2020-11-23] MEDS: SENNA W/DOCUSATE (SENOKOT S) TABLET PO SCH (21:00)
[2020-11-23] MEDS: APIXABAN 5 MG (ELIQUIS) TABLET PO SCH (21:00)
[2020-11-23] MEDS: LACTULOSE SYRUP 10GM/15ML (ENULOSE) 30ML UDC PO SCH (21:00)
[2020-11-23] MEDS ORDERED: SENNA W/DOCUSATE (SENOKOT S) TABLET PO SCH (21:00)
[2020-11-24] MEDS: HYDROcodone/APAP 10 MG/325 MG (LORTAB) TAB PO PRN ×2 (04:13→12:56)
[2020-11-24 04:15] LABS: BASOPHILS % (AUTO) 0 % (0-10); MEAN CORPUSCULAR HEMOGLOBIN 33 pg (25-34); NEUTROPHILS # (AUTO) 3.4 10^3/uL (1.8-7.8)
[2020-11-24 04:17] LABS: EOSINOPHILS # (AUTO) 0.1 10^3/uL (0.0-0.3); EOSINOPHILS % (AUTO) 2 % (0-10); HEMATOCRIT 32 % (40-54); LYMPHOCYTES # (AUTO) 1.6 10^3/uL (1.0-4.0); LYMPHOCYTES % (AUTO) 28 % (12-44); MEAN CORPUSCULAR HGB CONC 35 g/dL (32-36); MEAN CORPUSCULAR VOLUME 94 fL (80-99); MEAN PLATELET VOLUME 11.8 fL (9.0-12.2); MONOCYTES # (AUTO) 0.5 10^3/uL (0.0-1.0); MONOCYTES % (AUTO) 8 % (0-12); NEUTROPHILS % (AUTO) 60 % (42-75); PLATELET COUNT 94 10^3/uL (130-400); WHITE BLOOD COUNT 5.7 10^3/uL (4.3-11.0)
[2020-11-24 04:26] LABS: ALBUMIN 3.2 GM/DL (3.2-4.5)
[2020-11-24 04:27] LABS: CHLORIDE 104 MMOL/L (98-107); POTASSIUM 3.5 MMOL/L (3.6-5.0); SODIUM 138 MMOL/L (135-145)
[2020-11-24 04:28] LABS: CALCIUM 8.3 MG/DL (8.5-10.1)
[2020-11-24 04:29] LABS: GLUCOSE 112 MG/DL (70-105); TOTAL PROTEIN 5.7 GM/DL (6.4-8.2)
[2020-11-24 04:30] LABS: CARBON DIOXIDE 26 MMOL/L (21-32)
[2020-11-24 04:31] LABS: BILIRUBIN,TOTAL 1.1 MG/DL (0.1-1.0)
[2020-11-24 04:32] LABS: ALKALINE PHOSPHATASE 55 U/L (40-136); CREATININE SERUM 0.71 MG/DL (0.60-1.30); GFR ESTIMATED > 60
[2020-11-24 04:33] LABS: BUN/CREATININE RATIO 17
[2020-11-24 04:35] LABS: ALANINE AMINOTRANSFERASE 15 U/L (0-55)
[2020-11-24 06:05] VITALS: BP 130/68
[2020-11-24 08:00] VITALS: BP 123/64
[2020-11-24] MEDS: APIXABAN 5 MG (ELIQUIS) TABLET PO SCH ×2 (08:37→20:22)
[2020-11-24] MEDS: polyethylene glycoL POWDER 17 GM (MIRALAX) PACK PO SCH ×2 (08:42→20:06)
[2020-11-24] MEDS: LACTULOSE SYRUP 10GM/15ML (ENULOSE) 30ML UDC PO SCH ×2 (08:42→20:06)
[2020-11-24] MEDS: DOCUSATE SODIUM 100 MG (COLACE) CAP PO SCH ×2 (08:42→20:06)
[2020-11-24] MEDS: SENNA W/DOCUSATE (SENOKOT S) TABLET PO SCH ×2 (08:43→20:07)
--- NOTE | 2020-11-24 08:56 | PM&R Progress Note ---
Subjective HPI/CC On Admission Date Seen by Provider: Nov 24, 2020 Time Seen by Provider: 08:30 Subjective/Events-last exam 11/24/20/: Addison will be discontinued, if retention noted will consult Dr. Little Cardiology is monitoring AFIB Potassium 3.5 will be supplemented Conferred with RN Reviewed therapy notes Checked meds and labs Review of Systems General: Fatigue, Malaise Neurological: Weakness, Incoordination Objective Exam Vital Signs Vital Signs Date Time Temp Pulse Resp B/P (MAP) Pulse Ox O2 Delivery O2 Flow Rate FiO2 11/25/20 01:00 67 11/24/20 20:30 Room Air 11/24/20 16:30 37.0 16 128/70 (89) 98 Capillary Refill : Less Than 3 SecondsLess Than 3 Seconds General Appearance: No Apparent Distress, WD/WN, Chronically ill, Thin, Other (frail) HEENT: PERRL/EOMI, Normal ENT Inspection, Pharynx Normal Neck: Full Range of Motion, Normal Inspection, Non Tender, Supple, Carotid Bruit Respiratory: Chest Non Tender, Lungs Clear, Normal Breath Sounds, No Accessory Muscle Use, No Respiratory Distress Cardiovascular: No Edema, No Gallop, No JVD, No Murmur, Normal Peripheral Pulses, Irregularly Irregular, Tachycardia Gastrointestinal: Normal Bowel Sounds, No Organomegaly, No Pulsatile Mass, Non Tender, Soft Back: Normal Inspection, No CVA Tenderness, No Vertebral Tenderness Extremity: Normal Capillary Refill, Normal Inspection, Normal Range of Motion (except left leg), Non Tender, No Calf Tenderness, No Pedal Edema Neurologic/Psychiatric: Alert, Oriented x3, No Motor/Sensory Deficits, Normal Mood/Affect, Motor Weakness (generalized 4/5 all extremities left leg 1/5) Skin: Normal Color, Warm/Dry Lymphatic: No Adenopathy Results/Procedures Lab Patient resulted labs reviewed. FIM Transfers Therapy Code Descriptions/Definitions Functional [place] Measure: 0=Not Assessed/NA 4=Minimal Assistance 1=Total Assistance 5=Supervision or Setup 2=Maximal Assistance 6=Modified [place] 3=Moderate Assistance 7=Complete IndependenceSCALE: Activities may be completed with or without assistive devices. 2-Hlhzjerpfz-lrrkdwo completes the activity by him/herself with no assistance from a helper. 5-Set-up or Clean-up Assistance-helper sets up or cleans up; patient completes activity. [place] assists only prior to or following the activity. 4-Supervision or Touching Assistance-helper provides verbal cues and/or touching/steadying and/or contact guard assistance as patient completes activity. Assistance may be provided throughout the activity or intermittently. 3-Partial/Moderate Assistance-helper does LESS THAN HALF the effort. [place] lifts, holds or supports trunk or limbs, but provides less than half the effort. 2-Substantial/Maximal Assistance-helper does MORE THAN HALF the effort. [place] lifts or holds trunk or limbs and provides more than half the effort. 0-Obegbmwhd-yobbnh does ALL the effort. Patient does none of the effort to complete the activity. Or, the assistance of 2 or more helpers is required for the patient to complete the activity. If activity was not attempted, code reason: 7-Patient Refused. 9-Not Applicable-not attempted and the patient did not perform the activity before the current illness, exacerbation or injury. 10-Not Attempted due to Environmental Limitations-(lack of equipment, weather restraints, etc.). 88-Not Attempted due to Medical Conditions or Safety Concerns. Roll Left to Right (QC): 6 Sit to Lying (QC): 3 Sit to Stand (QC): 4 Chair/Aig-td-Fdqsg Xfer(QC): 4 Car Transfer (QC): 3 Gait Training Does the Patient Walk?: Yes Distance: 60' Walk 10 feet (QC): 4 Walk 50 ft with 2 Turns(QC): 4 Walk 150 ft (QC): 88 Walking 10ft/uneven surface-QC: 4 Gait Persons Needed: 1 Gait Assistive Device: FWW Wheelchair Training Does the Pt Use a Wheelchair?: Yes Distance: 50' Wheel 50 ft with 2 turns (QC): 4 Wheel 150 ft (QC): 88 Type of Wheelchair: Manual Stair Training #of Steps: 1 1 Step (curb) (QC): 4 4 Steps (QC): 88 12 Steps (QC): 88 Balance Picking up an Object (QC): 88 ADL-Treatment Eating (QC): 6 Oral Hygiene (QC): 5 (set up assist at tray table.) Shower/Bathe Self (QC): 4 (Sponge bath, CGA standing at FWW to wash buttocks.) Upper Body Dressing (QC): 3 (min A, pt able to thread BUEs and head, slight assistance with pulling down over trunk) Lower Body Dressing (QC): 3 (CGA in stand at FWW, Pt able to thread BLEs with min A (LLE)) On/Off Footwear (QC): 3 (Pt able to don/doff gripper socks, min A with L sock for grippers to be on bottom.) Toileting Hygiene (QC): 4 (CGA in stand, pt able to manage clothing and hygiene.) Assessment/Plan Assessment and Plan Assess & Plan/Chief Complaint Assessment: Left hip fracture s/p repair AF w/RVR Post op anemia Frail status Advanced age Chronic back pain Plan: Pain meds IRF protocol Monitor labs Monitor AF 11/24/20: Monitor closely DC catheter Monitor AF control (1) Closed left hip fracture Status: Acute (2) Fall Status: Acute (3) Traumatic ecchymosis of rib Status: Acute (4) Chronic back pain Status: Chronic (5) Coronary artery disease Status: Chronic (6) Atrial fibrillation with rapid ventricular response Status: Acute MATHEW LINCOLN DO Nov 24, 2020 08:56
--- NOTE | 2020-11-24 09:01 | Occupational Ther Daily Note ---
OT Current Status-Daily Note Subjective Pt agreeable to OT Tx with focus on ADLS. Mental Status/Objective Patient Orientation: Person, Place, Time, Situation Attachments: [place] Catheter ADL-Treatment Therapy Code Descriptions/Definitions Functional [place] Measure: 0=Not Assessed/NA 4=Minimal Assistance 1=Total Assistance 5=Supervision or Setup 2=Maximal Assistance 6=Modified [place] 3=Moderate Assistance 7=Complete IndependenceSCALE: Activities may be completed with or without assistive devices. 6-Bopzskgvta-kouelta completes the activity by him/herself with no assistance from a helper. 5-Set-up or Clean-up Assistance-helper sets up or cleans up; patient completes activity. [place] assists only prior to or following the activity. 4-Supervision or Touching Assistance-helper provides verbal cues and/or touching/steadying and/or contact guard assistance as patient completes activity. Assistance may be provided throughout the activity or intermittently. 3-Partial/Moderate Assistance-helper does LESS THAN HALF the effort. [place] lifts, holds or supports trunk or limbs, but provides less than half the effort. 2-Substantial/Maximal Assistance-helper does MORE THAN HALF the effort. [place] lifts or holds trunk or limbs and provides more than half the effort. 4-Jcfnfcvdt-afloxn does ALL the effort. Patient does none of the effort to complete the activity. Or, the assistance of 2 or more helpers is required for the patient to complete the activity. If activity was not attempted, code reason: 7-Patient Refused. 9-Not Applicable-not attempted and the patient did not perform the activity before the current illness, exacerbation or injury. 10-Not Attempted due to Environmental Limitations-(lack of equipment, weather restraints, etc.). 88-Not Attempted due to Medical Conditions or Safety Concerns. Shower/Bathe Self (QC): 4 (CGA in stand at [facility]) Upper Body Dressing (QC): 5 (set up assist) Lower Body Dressing (QC): 3 (CGA standing balance at [facility]. Pt required min A with pant hike.) On/Off Footwear: 4 (SBA ) Other Treatment Pt seated in recliner, used FWW to ambulate into shower and onto shower chair. Pt doffed clothes, showered seated on OH, then donned clothes. Pt transferred to w/c using FWW, independently took meds provided by nursing. Then self-propelled w/c to therapy gym, cues to locate gym and due to distractibility. In order to increase BUE strength and functional endurance, pt completed x15 mins arm bike, min resistance. Pt easily distracted with tasks, telling stories, pt required cues to stay on task. Pt self-propelled w/c back to his room, slow pace. Transferred to recliner. Post tx, pt seated in recliner, call light in reach and all needs met. Education OT Patient Education: Correct positioning, Exercise program, Modified ADL techniques, Progress toward Goal/Update tx plan, Purpose of tx/functional activities Teaching Recipient: Patient Teaching Methods: Discussion Response to Teaching: Verbalize Understanding OT Short Term Goals Short Term Goals Time Frame: Dec 04, 2020 Upper body dressin Lower body dressin Putting on/taking off footwear: 5 OT Fdc Goals Fdc Goals Time Frame: Dec 18, 2020 Eating (QC): 6 Oral Hygiene (QC): 6 Toileting Hygiene (QC): 6 Shower/Bathe Self (QC): 6 Upper Body Dressing (QC): 6 Lower Body Dressing (QC): 6 On/Off Footwear (QC): 6 Additional Goals: 1-Demonstrate ADL Tasks, 2-Verbalize Understanding, 3- ImproveStrength/[place] 1=Demonstrate adherence to instructed precautions during ADL tasks. 2=Patient will verbalize/demonstrate understanding of assistive devices/modifications for ADL. 3=Patient will improve strength/tolerance for activity to enable patient to perform ADL's. OT Education/Plan Problem List/Assessment Assessment: Decreased Activ Tolerance, Decreased UE Strength, Impaired Funct Balance, Impaired I ADL's, Impaired Self-Care Skills Discharge Recommendations Plan/Recommendations: Continue POC Treatment Plan/Plan of Care Patient would benefit from OT for education, treatment and training to promote independence in ADL's, mobility, safety and/or upper extremity function for ADL's. Plan of Care: ADL Retraining, Functional Mobility, UE Funct Exercise/Act Treatment Duration: Dec 18, 2020 Frequency: At least 5 of 7 days/Wk (IRF) Estimated Hrs Per Day: 1.5 hours per day Rehab Potential: Fair Time/GCodes Start Time: 08:00 Stop Time: 09:30 Total Time Billed (hr/min): 90 Billed Treatment Time 1, ADL 4 (60'), EX (15'), FA (15') RADHA RUIZ OT Nov 24, 2020 09:01
[2020-11-24] MEDS ORDERED: KCL 20 MEQ TAB (K-DUR) PO NR (10:15)
--- NOTE | 2020-11-24 10:57 | Progress Note - Cardiology ---
Cardiology SOAP Progress Note Subjective: Up ambulating with PT No c/o CP, palpitations, syncope, near syncope or LE swelling No c/o SOB at this time C/O left hip discomfort Objective: I&O/Vital Signs 11/25/20 11/25/20 11/25/20 11/25/20 01:00 06:45 07:14 08:25 Temp 36.4 Pulse 67 88 92 64 Resp 20 B/P (MAP) 149/74 (99) 130/58 (82) Pulse Ox 98 O2 Delivery Room Air Room Air 11/25/20 00:00 Intake Total 600 ml Output Total 250 ml Balance 350 ml Weight (Pounds): 163 Weight (Ounces): 2.0 Weight (Calculated Kilograms): 73.142166 Constitutional: AAO x 3, other (frail) Respiratory: No accessory muscle use, No respiratory distress; chest expansion is symmetric, chest is bilaterally symmetric Cardiovascular: irregularly irregular; No JVD; S1 and S2 Gastrointestional: No tender; soft, audible bowel sounds Extremities: no lower extremity edema bilateral Neurologic/Psychiatric: grossly intact (moves all extremities) Skin: No rash on exposed areas, No ulcerations on exposed areas Results/Procedures: Labs A/P: Assessment: Nonsyncopal fall leading to left hip fracture on 11-18-2020, treated with femoral neck fixation on 11/19/20 A Fib with RVR. Long-acting dilt for rate control. 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 Last cath was on 05/20/14. It showed diffuse disease consisting of up to 50% stenoses in all cors. FFR across multiple mid-vessel LAD lesions was 0.92, indicating hemodynamic insignificance. There was a patent st ent in mid LAD and in distal RCA. Distal RCA stent is known to be Promus [id number] placed in Aug 2012. LVEF on cath of May 2014 was 45% and LVEDP was mildly elevated Hyperlipidemia, but the patient is intolerant to statins. Postural hypotension, resolved following cessation of therapy with RYAN inhibitors and Terazosin. Multiple medication intolerances. See below. Intolerance to beta-blockers on account of symptomatic bradycardia and hypotension. Intolerance to RYAN inhibitors on account of postural hypotension Intolerance to ARBs on account of dizziness. Intolerance to warfarin due to nonspecific symptoms and fear of side effects - has tolerated apixaban Mild carotid arterial disease (less than 40%) per carotid ultrasonography of May 2016. Chronic moderate vertigo. Chronic low back pain, s/p low low back kyphoplasty, but back pain has persisted Plan: Continue current cardiac regimen Monitor lab Replace electrolytes as indicated CAITLYN SANTILLAN Nov 24, 2020 10:57
--- NOTE | 2020-11-24 11:23 | Physical Therapy Daily Note ---
PT Daily Note-Current Subjective Patient in recliner pre tx, agrees to PT, voices no complaints of pain. Appearance Patient on bedside commode for BM post tx, instructed patient to use nurse call when done. Mental Status Patient Orientation: Person, Place, Situation Attachments: Addison Catheter Transfers SCALE: Activities may be completed with or without assistive devices. 5-Uzvjjnfrsx-pqnwxfn completes the activity by him/herself with no assistance from a helper. 5-Set-up or Clean-up Assistance-helper sets up or cleans up; patient completes activity. [place] assists only prior to or following the activity. 4-Supervision or Touching Assistance-helper provides verbal cues and/or touching/steadying and/or contact guard assistance as patient completes activity. Assistance may be provided throughout the activity or intermittently. 3-Partial/Moderate Assistance-helper does LESS THAN HALF the effort. [place] lifts, holds or supports trunk or limbs, but provides less than half the effort. 2-Substantial/Maximal Assistance-helper does MORE THAN HALF the effort. [place] lifts or holds trunk or limbs and provides more than half the effort. 1-Jrawzleyb-igtzio does ALL the effort. Patient does none of the effort to complete the activity. Or, the assistance of 2 or more helpers is required for the patient to complete the activity. If activity was not attempted, code reason: 7-Patient Refused. 9-Not Applicable-not attempted and the patient did not perform the activity before the current illness, exacerbation or injury. 10-Not Attempted due to Environmental Limitations-(lack of equipment, weather restraints, etc.). 88-Not Attempted due to Medical Conditions or Safety Concerns. Sit to Stand (QC): 4 Chair/Uda-bc-Lhmdj Xfer(QC): 4 Weight Bearing Left Lower Extremity: Left Partial Weight Bearing Gait Training Distance: 80', 60', 40' Walk 10 feet (QC): 4 Walk 50 ft with 2 Turns(QC): 4 Gait Persons Needed: 1 Gait Assistive Device: FWW slow but steady ambulation, better step through, compliant with PWB on the left side Wheelchair Training Does the Pt Use a Wheelchair?: Yes Wheel 50 ft with 2 turns (QC): 4 Wheel 150 ft (QC): 4 Type of Wheelchair: Manual SBA, very slow, several rest breaks Exercises Seated Therapy Exercises: Ankle pumps, Long arc quads, Hip flexion Seated Reps: 20 Standing: Hip Abduction (only left leg), Heel/toe raises, Mini squats NuStep Minutes: 15 NuStep Workload: 4 Treatments transfers, ambulation, WC mobility, functional strengthening Assessment Current Status: Fair Progress progressing well, improving general mobility PT Short Term Goals Short Term Goals Time Frame: Nov 30, 2020 Roll Left & Right: 4 Sit to lyin Lying to sitting on side of be: 4 Sit to stand: 4 Chair/bzq-tr-fnlmg transfer: 4 Walk 10 feet: 4 Walk 50 feet with two turns: 4 PT Vp Global Goals Vp Global Goals PT Vp Global Goals Time Frame: Dec 14, 2020 Roll Left & Right (QC): 6 Sit to Lying (QC): 6 Lying-Sitting on Side/Bed(QC): 6 Sit to Stand (QC): 6 Chair/Prv-gz-Adhkr Xfer(QC): 6 Toilet Transfer (QC): 6 Car Transfer (QC): 6 Does the Patient Walk: Yes Walk 10 feet (QC): 6 Walk 50ft with 2 Turns (QC): 6 Walk 150 ft (QC): 6 Walking 10ft on Uneven Surface: 6 1 Step (curb) (QC): 6 4 Steps (QC): 6 12 Steps (QC): 6 Picking up an Object (QC): 88 Wheel 50 feet with 2 turns (QC: 9 Wheel 150 feet: 9 PT Plan Problem List Problem List: Activity Tolerance, Functional Strength, Safety, Balance, Gait, Transfer, Bed Mobility, ROM Treatment/Plan Treatment Plan: Continue Plan of Care Treatment Plan: Bed Mobility, Education, Functional Activity Virgilio, Functional Strength, Group Therapy, Gait, Safety, Therapeutic Exercise, Transfers Treatment Duration: Nov 30, 2020 Frequency: At least 5 of 7 days/Wk (IRF) Estimated Hrs Per Day: 1.5 hours per day Patient and/or Family Agrees t: Yes Safety Risks/Education Patient Education: Gait Training, Transfer Techniques, Correct Positioning, W/C Management, Safety Issues Teaching Recipient: Patient Teaching Methods: Demonstration, Discussion Response to Teaching: Reinforcement Needed Time/GCodes Time In: 1000 Time Out: 1130 Total Billed Treatment Time: 90 Total Billed Treatment 1 visit EX 30' FA 60' RAVEN LOAIZA PT Nov 24, 2020 11:23
--- NOTE | 2020-11-24 11:30 | NUR ---
Addison catheter DC'd without difficulty.
--- NOTE | 2020-11-24 14:45 | NUR ---
Voided 50cc post-void bladder scan showed 13cc. Needs reminded to call nurse for help up or urinal assist.
[2020-11-24 16:30] VITALS: BP 128/70
[2020-11-24] MEDS ORDERED: CATHETER FLUSH 10 ML SYR IV PRN (18:30)
--- NOTE | 2020-11-24 18:41 | NUR ---
Has voided multiple times in small amounts. Need to continue to monitor. Order received to consult Dr. Little if urinary retention.
--- NOTE | 2020-11-24 19:30 | NUR ---
BLADDER SCAN SHOWS 29 CC. FLUIDS ENCOURAGED.
[2020-11-24] MEDS: CATHETER FLUSH 10 ML SYR IV SCH (20:23)
[2020-11-25] MEDS: CATHETER FLUSH 10 ML SYR IV SCH (06:37)
[2020-11-25 06:45] VITALS: BP 149/74
[2020-11-25 08:25] VITALS: BP 130/58
[2020-11-25] MEDS: APIXABAN 5 MG (ELIQUIS) TABLET PO SCH (08:26)
[2020-11-25] MEDS: SENNA W/DOCUSATE (SENOKOT S) TABLET PO SCH (08:26)
[2020-11-25] MEDS: DOCUSATE SODIUM 100 MG (COLACE) CAP PO SCH (08:26)
[2020-11-25] MEDS: LACTULOSE SYRUP 10GM/15ML (ENULOSE) 30ML UDC PO SCH (08:26)
[2020-11-25] MEDS: polyethylene glycoL POWDER 17 GM (MIRALAX) PACK PO SCH (08:27)
--- NOTE | 2020-11-25 08:49 | PM&R Progress Note ---
Subjective HPI/CC On Admission Date Seen by Provider: Nov 25, 2020 Time Seen by Provider: 09:00 Subjective/Events-last exam 11/25/20: See DC note 11/24/20/: Addison will be discontinued, if retention noted will consult Dr. Little Cardiology is monitoring AFIB Potassium 3.5 will be supplemented Conferred with RN Reviewed therapy notes Checked meds and labs Objective Exam Vital Signs Vital Signs Date Time Temp Pulse Resp B/P (MAP) Pulse Ox O2 Delivery O2 Flow Rate FiO2 11/25/20 12:33 36.4 64 20 130/58 98 Room Air Capillary Refill : Less Than 3 SecondsLess Than 3 Seconds General Appearance: No Apparent Distress, WD/WN, Chronically ill, Thin, Other (frail) HEENT: PERRL/EOMI, Normal ENT Inspection, Pharynx Normal Neck: Full Range of Motion, Normal Inspection, Non Tender, Supple, Carotid Bruit Respiratory: Chest Non Tender, Lungs Clear, Normal Breath Sounds, No Accessory Muscle Use, No Respiratory Distress Cardiovascular: No Edema, No Gallop, No JVD, No Murmur, Normal Peripheral Pulses, Irregularly Irregular, Tachycardia Gastrointestinal: Normal Bowel Sounds, No Organomegaly, No Pulsatile Mass, Non Tender, Soft Back: Normal Inspection, No CVA Tenderness, No Vertebral Tenderness Extremity: Normal Capillary Refill, Normal Inspection, Normal Range of Motion (except left leg), Non Tender, No Calf Tenderness, No Pedal Edema Neurologic/Psychiatric: Alert, Oriented x3, No Motor/Sensory Deficits, Normal Mood/Affect, Motor Weakness (generalized 4/5 all extremities left leg 1/5) Skin: Normal Color, Warm/Dry Lymphatic: No Adenopathy Results/Procedures Lab Patient resulted labs reviewed. FIM Transfers Therapy Code Descriptions/Definitions Functional [place] Measure: 0=Not Assessed/NA 4=Minimal Assistance 1=Total Assistance 5=Supervision or Setup 2=Maximal Assistance 6=Modified [place] 3=Moderate Assistance 7=Complete IndependenceSCALE: Activities may be completed with or without assistive devices. 4-Tbatpsbrli-fbiodns completes the activity by him/herself with no assistance from a helper. 5-Set-up or Clean-up Assistance-helper sets up or cleans up; patient completes activity. [place] assists only prior to or following the activity. 4-Supervision or Touching Assistance-helper provides verbal cues and/or touching/steadying and/or contact guard assistance as patient completes activity. Assistance may be provided throughout the activity or intermittently. 3-Partial/Moderate Assistance-helper does LESS THAN HALF the effort. [place] lifts, holds or supports trunk or limbs, but provides less than half the effort. 2-Substantial/Maximal Assistance-helper does MORE THAN HALF the effort. [place] lifts or holds trunk or limbs and provides more than half the effort. 8-Qylwfjkoy-ytluqe does ALL the effort. Patient does none of the effort to complete the activity. Or, the assistance of 2 or more helpers is required for the patient to complete the activity. If activity was not attempted, code reason: 7-Patient Refused. 9-Not Applicable-not attempted and the patient did not perform the activity before the current illness, exacerbation or injury. 10-Not Attempted due to Environmental Limitations-(lack of equipment, weather restraints, etc.). 88-Not Attempted due to Medical Conditions or Safety Concerns. Roll Left to Right (QC): 6 Sit to Lying (QC): 3 Sit to Stand (QC): 4 Chair/Ypu-hf-Mqnjq Xfer(QC): 4 Car Transfer (QC): 3 Gait Training Does the Patient Walk?: Yes Distance: 80', 60', 40' Walk 10 feet (QC): 4 Walk 50 ft with 2 Turns(QC): 4 Walk 150 ft (QC): 88 Walking 10ft/uneven surface-QC: 4 Gait Persons Needed: 1 Gait Assistive Device: FWW Wheelchair Training Does the Pt Use a Wheelchair?: Yes Distance: 50' Wheel 50 ft with 2 turns (QC): 4 Wheel 150 ft (QC): 4 Type of Wheelchair: Manual Stair Training #of Steps: 1 1 Step (curb) (QC): 4 4 Steps (QC): 88 12 Steps (QC): 88 Balance Picking up an Object (QC): 88 ADL-Treatment Eating (QC): 6 Oral Hygiene (QC): 5 (set up assist at tray table.) Shower/Bathe Self (QC): 4 (CGA in stand at [facility]) Upper Body Dressing (QC): 5 (set up assist) Lower Body Dressing (QC): 3 (CGA standing balance at GBs. Pt required min A with pant hike.) On/Off Footwear (QC): 4 (SBA ) Toileting Hygiene (QC): 4 (CGA in stand, pt able to manage clothing and hygiene.) Assessment/Plan Assessment and Plan Assess & Plan/Chief Complaint Assessment: Left hip fracture s/p repair AF w/RVR Post op anemia Frail status Advanced age Chronic back pain Plan: Pain meds IRF protocol Monitor labs Monitor AF 11/24/20: Monitor closely DC catheter Monitor AF control (1) Closed left hip fracture Status: Acute (2) Fall Status: Acute (3) Traumatic ecchymosis of rib Status: Acute (4) Chronic back pain Status: Chronic (5) Coronary artery disease Status: Chronic (6) Atrial fibrillation with rapid ventricular response Status: Acute MATHEW LINCOLN DO Nov 25, 2020 08:49
--- NOTE | 2020-11-25 08:50 | Individualized Plan of Care ---
Individualized Plan of Care Rehab Nursing IPOC Order Admission Date Nov 23, 2020 at 10:45 Current Orders Orders Admission Order(Inpt,Obs,Sdc) (11/23/20 10:30) Vital Signs: Per Unit Policy ( 08,16,00 (11/23/20 10:30) Abdelrahman [place] (11/23/20 10:30) Sequential Compression Device Q4H (11/23/20 10:30) Materials Engineering Technician-Inpt Rehab Con (11/23/20 10:30) Rehab Nursing Orders-Ipoc (11/23/20 10:30) Physical Therapy Rehab Orders (11/23/20 10:30) Occupational Therapy Rehab Ord (11/23/20 10:30) Speech Therapy Rehab Orders (11/23/20 10:30) Cbc With Automated Diff (11/24/20 06:00) Comprehensive Metabolic Panel (11/24/20 06:00) General/Regular (11/23/20 Lunch) Precautions (Aru) (11/23/20 10:30) Rehab-Intensity Of Therapy (11/23/20 10:30) Initiate Admission Nursing Pro .admission (11/23/20 10:30) Alprazolam Tablet (Xanax Tablet) (11/23/20 10:30) Calcium Carbonate Chew Tablet (Antacid C (11/23/20 10:30) Diphenhydramine Tablet (Benadryl Tablet) (11/23/20 10:30) Docusate Sodium Capsule (Colace Capsule) (11/23/20 21:00) Docusate Sodium Capsule (Colace Capsule) (11/23/20 10:30) Bisacodyl Suppository (Dulcolax Supposit (11/23/20 10:30) Lactulose Oral Solution (Enulose Oral So (11/23/20 10:30) Na Phos/Na Biphos Enema (Fleet Enema Nura (11/23/20 10:30) Guaifenesin/Codeine Syrup (Robitussin Ac (11/23/20 10:30) Loperamide Tablet (Imodium Tablet) (11/23/20 10:30) Melatonin Tablet (Melatonin Tablet) (11/23/20 10:30) Polyethylene Glycol Powder Pkt (Miralax (11/23/20 21:00) Ondansetron Oral Dissolve Tab (Zofran (11/23/20 10:30) Senna S Tablet (Senokot S Tablet) (11/23/20 21:00) Telemetry (11/23/20 14:19) Telemetry Nursing Assessment ( (11/23/20 14:19) Patient Visit (11/23/20 ) Speech Sound Lang Comp (11/23/20 ) Patient Visit (11/23/20 ) Pt Eval Moderate Complexity (11/23/20 ) Functional Activities, Ea 15 (11/23/20 ) Exercise Therap, Ea 15 Min (11/23/20 ) Hydrocodone/Apap 10/325 Tablet (Lortab 1 (11/23/20 16:15) Code/Resuscitation (11/23/20 18:28) General/Regular (11/23/20 Dinner) Acetaminophen Tablet (Tylenol Tablet) (11/23/20 18:30) Apixaban Tablet (Eliquis Tablet) (11/23/20 21:00) Calcium Carbonate Chew Tablet (Antacid C (11/23/20 18:30) Docusate Sodium Capsule (Colace Capsule) (11/23/20 18:30) Hydrocodone/Apap 10/325 Tablet (Lortab 1 (11/23/20 18:30) Hydrocodone/Apap 5/325 Tablet (Lortab 5 (11/23/20 18:30) Lactulose Oral Solution (Enulose Oral So (11/23/20 21:00) Loperamide Tablet (Imodium Tablet) (11/23/20 18:30) Melatonin Tablet (Melatonin Tablet) (11/23/20 18:30) Ondansetron Injection (Zofran Injectio (11/23/20 18:30) Potassium Chloride (Tablet) (K Dur Table (11/24/20 10:15) Senna S Tablet (Senokot S Tablet) (11/23/20 21:00) Diltiazem Cd 24 Hr Capsule (Cardizem Cd (11/24/20 09:00) Diphenhydramine Tablet (Benadryl Tablet) (11/23/20 18:30) Fentanyl Injection (Sublimaze Injection (11/23/20 18:30) Consult Cardiology (11/23/20 18:28) Consult Orthopedic Surgery (11/23/20 18:28) Patient Visit (11/24/20 ) Exercise Therap, Ea 15 Min (11/24/20 ) Functional Activities, Ea 15 (11/24/20 ) Catheter(Urinary) Discontinue (11/24/20 16:48) Nursing Communication (Order) (11/24/20 16:48) Sodium Chloride Flush (Catheter Flush Sy (11/24/20 18:30) Sodium Chloride Flush (Catheter Flush Sy (11/24/20 22:00) Attending Discharge Inpt/Inobs (11/25/20 10:13) Rehab Nursing Orders: Ongoing Assess. of Function Status, Bladder Management, Bladder Scan, Bladder Training, Bowel Management, Bowel Training, Disease Management & Educaiton, DVT Prophylaxis, Fall Prevention, Fluid/Electrolyte/Nut rition Mgmt, Infection Prevention, Medication Management & Education, Management of Risks & Complications, Management of Skin Intergrity, Nutrition Management, Pain Management, Patient/Family Support, Safety Management Intensity of Therapy to be met Patient to be seen: Min.3h per day/5 of 7d PT IPOC Problem List: Activity Tolerance, Functional Strength, Safety, Balance, Gait, Transfer, Bed Mobility, ROM Treatment Plan: Continue Plan of Care Bed Mobility, Education, Functional Activity Virgilio, Functional Strength, Group Therapy, Gait, Safety, Therapeutic Exercise, Transfers Treatment Duration: Nov 30, 2020 Frequency: At least 5 of 7 days/Wk (IRF) Estimated Hrs Per Day: 1.5 hours per day OT IPOC Problems: Decreased Activ Tolerance, Decreased UE Strength, Impaired Funct Balance, Impaired I ADL's, Impaired Self-Care Skills OT Treatment, Training and Edu: Yes Plan of Care: ADL Retraining, Functional Mobility, UE Funct Exercise/Act Treatment Duration: Dec 18, 2020 Frequency: At least 5 of 7 days/Wk (IRF) Estimated Hrs Per Day: 1.[address] IPOC Speech Therapy Treatment Plan: Discontinue ST Treatment Duration: Nov 23, 2020 Frequency: 1 time per week Estimated Hrs Per Day: .25 hour per day Materials Engineering Technician/Case Mgmt Materials Engineering Technician/Case Managemen: Discharge Planning Dietitian/Ekg Tech Dietitian/Ekg Tech to monitor nutritional status and make changes and/or recommendations as needed and work with speech pathology on dietary upgrades as the occur. Physician IPOC Medical Issues being managed closely and that require the 24 hour availability of a physician: Recent hip fracture with delirium will require close monitoring along with delirium will have high risk for decompensation Medical Issues: Bowel/Bladder Function, DVT Prophylaxis, Falls Precautions, Fluid/Electrolyte/Nutrition Balance, Infection Protection, Pain Management Brief Synthesis of Preadmission Screen, Post-Admission Evaluation, and Therapy Evaluations: PT OT will focus on regaining function in order to ultimately return home with his and help ambulate and regain ADL's Medical Prognosis: Good Anticipated Length of Stay: 7 days MATHEW LINCOLN DO Nov 25, 2020 08:50
--- NOTE | 2020-11-25 10:45 | Occupational Ther Daily Note ---
OT Current Status-Daily Note Subjective Pt stated the strong urge and readiness to go home. Pt spoke over the OT/doctor when discussing safety needs from the home environment before leaving the facility. Mental Status/Objective Patient Orientation: Person, Place, Time, Situation ADL-Treatment Therapy Code Descriptions/Definitions Functional [place] Measure: 0=Not Assessed/NA 4=Minimal Assistance 1=Total Assistance 5=Supervision or Setup 2=Maximal Assistance 6=Modified [place] 3=Moderate Assistance 7=Complete IndependenceSCALE: Activities may be completed with or without assistive devices. 3-Auumpcdyjn-ldqgvte completes the activity by him/herself with no assistance from a helper. 5-Set-up or Clean-up Assistance-helper sets up or cleans up; patient completes activity. [place] assists only prior to or following the activity. 4-Supervision or Touching Assistance-helper provides verbal cues and/or touching/steadying and/or contact guard assistance as patient completes activity. Assistance may be provided throughout the activity or intermittently. 3-Partial/Moderate Assistance-helper does LESS THAN HALF the effort. [place] lifts, holds or supports trunk or limbs, but provides less than half the effort. 2-Substantial/Maximal Assistance-helper does MORE THAN HALF the effort. [place] lifts or holds trunk or limbs and provides more than half the effort. 5-Gkmsvitmc-xlueho does ALL the effort. Patient does none of the effort to complete the activity. Or, the assistance of 2 or more helpers is required for the patient to complete the activity. If activity was not attempted, code reason: 7-Patient Refused. 9-Not Applicable-not attempted and the patient did not perform the activity before the current illness, exacerbation or injury. 10-Not Attempted due to Environmental Limitations-(lack of equipment, weather restraints, etc.). 88-Not Attempted due to Medical Conditions or Safety Concerns. Other Treatment Pt stated the need to go home and described his readiness to do so. Describing his medication management, shower safety, and functional mobility throughout his home. OT attempted to educate pt of safety concerns/barriers to him discharging, pt kept insisting he is able to manage medications and did not acknowledge how OT was concerned with getting in/out of tub, in/out of house (2 steps) and functional aspects at home. Pt transferred from chair to w/c at [facility]. Pt self- propelled to shower room where pt education was given on proper bath chair use and need for a bath chair vs bench in pt's home. During education, pt talked over OT and insisted he had a way of showering at home. Pt then performed w/c mobility around [facility] common area and 2nd floor and back to his room. Pt used FWW to transfer from w/c to bed, CGA. Post tx, pt in bed, call light in reach and all needs met. Education OT Patient Education: Correct positioning, Modified ADL techniques, Progress toward Goal/Update tx plan, Purpose of tx/functional activities, Reviewed precautions, Safety issues, Transfer techniques Teaching Recipient: Patient Teaching Methods: Demonstration, Discussion Response to Teaching: Reinforcement Needed OT Short Term Goals Short Term Goals Time Frame: Dec 04, 2020 Upper body dressin Lower body dressin Putting on/taking off footwear: 5 OT Halfway Goals Halfway Goals Time Frame: Dec 18, 2020 Eating (QC): 6 Oral Hygiene (QC): 6 Toileting Hygiene (QC): 6 Shower/Bathe Self (QC): 6 Upper Body Dressing (QC): 6 Lower Body Dressing (QC): 6 On/Off Footwear (QC): 6 Additional Goals: 1-Demonstrate ADL Tasks, 2-Verbalize Understanding, 3- ImproveStrength/Virgilio 1=Demonstrate adherence to instructed precautions during ADL tasks. 2=Patient will verbalize/demonstrate understanding of assistive devices/modifications for ADL. 3=Patient will improve strength/tolerance for activity to enable patient to perform ADL's. OT Education/Plan Problem List/Assessment Assessment: Decreased Activ Tolerance, Decreased Safety Aware, Decreased UE Strength, Impaired Funct Balance, Impaired I ADL's, Impaired Self-Care Skills Discharge Recommendations Plan/Recommendations: Continue POC Treatment Plan/Plan of Care Patient would benefit from OT for education, treatment and training to promote independence in ADL's, mobility, safety and/or upper extremity function for ADL's. Plan of Care: ADL Retraining, Functional Mobility, UE Funct Exercise/Act Treatment Duration: Dec 18, 2020 Frequency: At least 5 of 7 days/Wk (IRF) Estimated Hrs Per Day: 1.5 hours per day Rehab Potential: Fair Time/GCodes Start Time: 09:15 Stop Time: 10:00 Total Time Billed (hr/min): 45 Billed Treatment Time 1, ADL 2 ('), FA (20') RADHA RUIZ OT Nov 25, 2020 10:45
--- NOTE | 2020-11-25 10:51 | Progress Note - Cardiology ---
Cardiology SOAP Progress Note Subjective: No c/o CP, palpitations, syncope, near syncope or SOB Wants to go home Objective: I&O/Vital Signs 11/25/20 11/25/20 11/25/20 11/25/20 01:00 06:45 07:14 08:25 Temp 36.4 Pulse 67 88 92 64 Resp 20 B/P (MAP) 149/74 (99) 130/58 (82) Pulse Ox 98 O2 Delivery Room Air Room Air 11/25/20 00:00 Intake Total 600 ml Output Total 250 ml Balance 350 ml Weight (Pounds): 163 Weight (Ounces): 2.0 Weight (Calculated Kilograms): [id number] Constitutional: AAO x 3, other (frail) Respiratory: No accessory muscle use, No respiratory distress; chest expansion is symmetric, chest is bilaterally symmetric Cardiovascular: irregularly irregular; No JVD; S1 and S2 Gastrointestional: No tender; soft, audible bowel sounds Extremities: no lower extremity edema bilateral Neurologic/Psychiatric: grossly intact (moves all extremities) Skin: No rash on exposed areas, No ulcerations on exposed areas A/P: Assessment: Nonsyncopal fall leading to left hip fracture on 11-18-2020, treated with femoral neck fixation on 11/19/20 A Fib with RVR. Long-acting dilt for rate control. 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 Last cath was on 05/20/14. It showed diffuse disease consisting of up to 50% stenoses in all cors. FFR across multiple mid-vessel LAD lesions was 0.92, indicating hemodynamic insignificance. There was a patent stent in mid LAD and in distal RCA. Distal RCA stent is known to be Promus [id number] placed in Aug 2012. LVEF on cath of May 2014 was 45% and LVEDP was mildly elevated Hyperlipidemia, but the patient is intolerant to statins. Postural hypotension, resolved following cessation of therapy with RYAN inhibitors and Terazosin. Multiple medication intolerances. See below. Intolerance to beta-blockers on account of symptomatic bradycardia and hypotension. Intolerance to RYAN inhibitors on account of postural hypotension Intolerance to ARBs on account of dizziness. Intolerance to warfarin due to nonspecific symptoms and fear of side effects - has tolerated apixaban Mild carotid arterial disease (less than 40%) per carotid ultrasonography of May 2016. Chronic moderate vertigo. Chronic low back pain, s/p low low back kyphoplasty, but back pain has persisted Plan: Continue current cardiac regimen Monitor lab Replace electrolytes as indicated CAITLYN SANTILLAN Nov 25, 2020 10:51
--- NOTE | 2020-11-25 10:55 | Discharge Summary ---
Diagnosis/Chief Complaint Date of Admission Nov 23, 2020 at 10:45 Date of Discharge Discharge Date: Nov 25, 2020 Discharge Diagnosis Delirium Psychosis Left hip fracture AF Anemia post op Discharge Summary Discharge Physical Examination Allergies: Coded Allergies: Vocmygs-Pqu-Zsa Reductase Inhibitor (Unverified Allergy, Unknown, 03/12/19) codeine (Unverified Adverse Reaction, Mild, Altered taste, 02/13/15) Uncoded Allergies: beta blockers (Adverse Reaction, Severe, severe bradycardia, 04/07/20) Vitals & I&Os Vital Signs Date Time Temp Pulse Resp B/P (MAP) Pulse Ox O2 Delivery O2 Flow Rate FiO2 11/25/20 12:33 36.4 64 20 130/58 98 Room Air General Appearance: Alert Respiratory: Clear to Auscultation Cardiovascular: Regular Rate Hospital Course Was the Problem List Reviewed?: Yes Pt very confused Wants to leave Updated Will move up to 4th floor and DC from inpatient rehab Hospital Course: Pt had a short hospital course before he was admitted for delirium and verbal abuse towards health care providers. He will be evaluated for sepsis for change in mental status and he will have close follow up with 4th floor to continue supportive care. Labs (last 24 hrs) Laboratory Tests 11/24/20 03:55: White Blood Count 5.7, Red Blood Count 3.37L, Hemoglobin 11.0L, Hematocrit 32L, Mean Corpuscular Volume 94, Mean Corpuscular Hemoglobin 33, Mean Corpuscular Hemoglobin Concent 35, Red Cell Distribution Width 14.7H, Platelet Count 94L, Mean Platelet Volume 11.8, Immature Granulocyte % (Auto) 1, Neutrophils (%) (Auto) 60, Lymphocytes (%) (Auto) 28, Monocytes (%) (Auto) 8, Eosinophils (%) (A uto) 2, Basophils (%) (Auto) 0, Neutrophils # (Auto) 3.4, Lymphocytes # (Auto) 1.6, Monocytes # (Auto) 0.5, Eosinophils # (Auto) 0.1, Basophils # (Auto) 0.0, Immature Granulocyte # (Auto) 0.0, Sodium Level 138, Potassium Level 3.5L, Ch loride Level 104, Carbon Dioxide Level 26, Anion Gap 8, Blood Urea Nitrogen 12, Creatinine 0.71, Estimat Glomerular Filtration Rate > 60, BUN/Creatinine Ratio 17, Glucose Level 112H, Calcium Level 8.3L, Corrected Calcium 8.9, Total Bilirubin 1.1H, Aspartate Amino Transf (AST/SGOT) 27, Alanine Aminotransferase (ALT/SGPT) 15, Alkaline Phosphatase 55, Total Protein 5.7L, Albumin 3.2 Pending Labs Laboratory Tests 11/24/20 03:55: White Blood Count 5.7, Red Blood Count 3.37, Hemoglobin 11.0, Hematocrit 32, Mean Corpuscular Volume 94, Mean Corpuscular Hemoglobin 33, Mean Corpuscular Hemoglobin Concent 35, Red Cell Distribution Width 14.7, Platelet Count 94, Mean Platelet Volume 11.8, Immature Granulocyte % (Auto) 1, Neutrophils (%) (Auto) 60, Lymphocytes (%) (Auto) 28, Monocytes (%) (Auto) 8, Eosinophils (%) (Auto) 2, Basophils (%) (Auto) 0, Neutrophils # (Auto) 3.4, Lymphocytes # (Auto) 1.6, Monocytes # (Auto) 0.5, Eosinophils # (Auto) 0.1, Basophils # (Auto) 0.0, Immature Granulocyte # (Auto) 0.0, Sodium Level 138, Potassium Level 3.5, Chloride Level 104, Carbon Dioxide Level 26, Anion Gap 8, Blood Urea Nitrogen 12, Creatinine 0.71, Estimat Glomerular Filtration Rate > 60, BUN/Creatinine Ratio 17, Glucose Level 112, Calcium Level 8.3, Corrected Calcium 8.9, Total [place] irubin 1.1, Aspartate Amino Transf (AST/SGOT) 27, Alanine Aminotransferase (ALT/SGPT) 15, Alkaline Phosphatase 55, Total Protein 5.7, Albumin 3.2 Discharge Home Medications: Active Scripts Active Reported Cartia Xt (Diltiazem HCl) 120 Mg Cap.er.24h 240 Mg PO HS TAKES 2 (120MG) CAPS Cartia Xt (Diltiazem HCl) 120 Mg Cap.er.24h 120 Mg PO DAILY Stool Softener (Docusate Sodium) 100 Mg Capsule 200 Mg PO 1200,2100 Centravites 50 Plus Tablet (Multivit-Min/FA/Lycopen/Lutein) 1 Each Tablet 1 Each PO 1200 Aspirin EC (Aspirin) 81 Mg Tablet.dr 81 Mg PO 1200 Eliquis (Apixaban) 5 Mg Tablet 5 Mg PO BID Instructions to patient/family Please see electronic discharge instructions given to patient. Diagnosis/Problems Diagnosis/Problems (1) Closed left hip fracture Status: Acute (2) Fall Status: Acute (3) Traumatic ecchymosis of rib Status: Acute (4) Chronic back pain Status: Chronic (5) Coronary artery disease Status: Chronic (6) Atrial fibrillation with rapid ventricular response Status: Acute Clinical Quality Measures DVT/VTE Risk/Contraindication: Risk Factor Score Per Nursin RFS Level Per Nursing on Admit: 4+=Very High MATHEW LINCOLN DO Nov 25, 2020 10:55
--- NOTE | 2020-11-25 11:05 | NUR ---
CM/SS DISCHARGE Physician discussed patient's mental status with his spouse by phone and proposed a screening by [facility]. Longwall Foreman initiated the screening; however, [facility] has no potential openings until first of next week. Demographics sent as a means to have patient in the queue to hold his place for openings. Physician is discharging patient from ARU to Medical unit.
--- NOTE | 2020-11-25 12:15 | Progress Note - Ortho ---
Progress Note Subjective Date of Exam 11/25/20 Chief Complaint POD#6 femoral neck fixation impacted subcapital fracture left hip HPI/Events since last exam is 6 days postop femoral neck fixation and left hip for an impacted subcapital fracture. He states the hip is feeling pretty good. He still ambulating with a walker partial weightbearing on the left. Review of Systems Reviewed and no additions or changes Allergies: Coded Allergies: Ywagsrb-Rjl-Vdp Reductase Inhibitor (Unverified Allergy, Unknown, 03/12/19) codeine (Unverified Adverse Reaction, Mild, Altered taste, 02/13/15) Uncoded Allergies: beta blockers (Adverse Reaction, Severe, severe bradycardia, 04/07/20) Home Meds Reported Medications Diltiazem HCl (Cartia Xt) 120 Mg Cap.er.24h, 240 MG PO HS, CAP TAKES 2 (120MG) CAPS 11/19/20 Diltiazem HCl (Cartia Xt) 120 Mg Cap.er.24h, 120 MG PO DAILY, CAP 11/19/20 Docusate Sodium (Stool Softener) 100 Mg Capsule, 200 MG PO 1200,2100, CAP 04/07/20 Multivit-Min/FA/Lycopen/Lutein (Centravites 50 Plus Tablet) 1 Each Tablet, 1 EACH PO 1200, TAB 04/07/20 Aspirin (Aspirin EC) 81 Mg Tablet.dr, 81 MG PO 1200, TAB 03/11/19 Apixaban (Eliquis) 5 Mg Tablet, 5 MG PO BID, TAB 10/23/17 Discontinued Scripts Digoxin (Digoxin) 250 Mcg Tablet, 250 MCG PO DAILY, #30 TAB 3 Refills Prov:CAITLYN SANTILLAN K 12 PRINCIPAL 04/08/20 Potassium Chloride (Potassium Chloride) 20 Meq Tablet.er, 20 MEQ PO DAILY, #30 TAB 3 Refills Prov:CAITLYN SANTILLAN K 12 PRINCIPAL 04/08/20 Diltiazem HCl (Cardizem Cd) 120 Mg Cap.er.24h, 120 MG PO DAILY, #90 CAP Two capsules in the morning and one capsule in the evening Prov:CAITLYN SANTILLAN K 12 PRINCIPAL 04/08/20 Furosemide (Lasix) 80 Mg Tablet, 80 MG PO DAILY, #30 TAB 3 Refills Prov:CAITLYN SANTILLAN K 12 PRINCIPAL 20 Spironolactone (Spironolactone) 25 Mg Tablet, 25 MG PO DAILY, #30 TAB 5 Refills Prov:CAITLYN SANTILLAN K 12 PRINCIPAL 04/08/20 Objective Exam Constitutional: [] HEENT: [] Neck: [] Cardiovascular: [] Respiratory: [] Gastrointestinal: [] Genitourinary: [] Skin: [] Back/Spine: [] Extremities: [Still having some serosanguineous drainage from the left hip wound. No calf tenderness negative Homans. He's neurovascularly intact both lower extremities. Both legs equal position rotation paredes with no shortening] Neurologic: [] Psychiatric: [] Hematologic/lymphatic/immunologic: [] Vital Signs Vital Signs Date Time Temp Pulse Resp B/P (MAP) Pulse Ox O2 Delivery O2 Flow Rate FiO2 11/25/20 09:00 Room Air 11/25/20 08:25 64 130/58 (82) Room Air 11/25/20 07:14 92 11/25/20 06:45 36.4 88 20 149/74 (99) 98 Room Air 11/25/20 01:00 67 11/24/20 20:30 Room Air 11/24/20 19:00 96 11/24/20 16:30 37.0 102 16 128/70 (89) 98 11/24/20 12:33 113 I & O 11/25/20 07:00 Intake Total 750 ml Output Total 650 ml Balance 100 ml Assessment and Plan Assessment Doing well 6 days postop Problem List Unchanged Plan Continue with walker ambulation partial weightbearing on the left Final Diagonsis Status post femoral neck fixation impacted subcapital fracture left hip Level of the visit: Level 3 Clinical Quality Measures DVT/VTE Risk/Contraindication: Risk Factor Score Per Nursin RFS Level Per Nursing on Admit: 4+=Very High RONNELL MENJIVAR MD Nov 25, 2020 12:15
[2020-11-25 12:33] VITALS: BP 130/58
--- NOTE | 2020-11-25 14:58 | Therapy Team Discharge Summary ---
Therapy Discharge Summary Discharge Recommendations Date of Discharge Nov 25, 2020 at 12:29 Occupational Therapy Pt admitted to ARU s/p L hip fx. At OF, pt was independent with all ADLS and functional mobility using walker intermittently. Upon evaluation, pt was independent with eating, required set up assistance with oral care, CGA showering, min A upper body dressing/lower body dressing/footwear, and CGA toileting. OT txs focused on increasing safety and independence with ADLS as well as increasing BUE strength and functional endurance. Pt made some progress towards goals, completing upper body dressing with set up assistance, and footwear with SBA. Pt met independent level of eating, but did not meet any further LTGs due to short stay on ARU. Pt transferred to 4th floor medical floor, d/c from OT. Decreased Activ Tolerance, Decreased Safety Aware, Decreased UE Strength, Impaired Funct Balance, Impaired I ADL's, Impaired Self-Care Skills PT Human Services Care Specialist Goals Skilled Nursing Goals PT Human Services Care Specialist Goals Time Frame: Dec 14, 2020 Roll Left to Right (QC): 6 Sit to Lying (QC): 6 Lying-Sitting on Side/Bed(QC): 6 Sit to Stand (QC): 6 Chair/Usw-au-Pvzkk Xfer(QC): 6 Car Transfer (QC): 6 Does the Patient Walk: Yes Walk 10 feet (QC): 6 Walk 10ft-Uneven Surface(QC): 6 Walk 50ft with 2 Turns (QC): 6 Walk 150 ft (QC): 6 Wheel 50 feet with 2 turns (QC: 9 1 Step (curb) (QC): 6 4 Steps (QC): 6 12 Steps (QC): 6 Picking up an Object (QC): 88 OT Human Services Care Specialist Goals Skilled Nursing Goals Time Frame: Dec 18, 2020 Eating (QC): 6 (met) Oral Hygiene (QC): 6 (not met) Shower/Bathe Self (QC): 6 (not met) Upper Body Dressing (QC): 6 (not met) Lower Body Dressing (QC): 6 (not met) On/Off Footwear (QC): 6 (not met) Toileting Hygiene (QC): 6 (not met) Toilet/Commode Transfer (QC): 6 (not met) Additional Goals: 1-Demonstrate ADL Tasks, 2-Verbalize Understanding, 3-Improv eStrength/Virgilio 1=Demonstrate adherence to instructed precautions during ADL tasks. 2=Patient will verbalize/demonstrate understanding of assistive devices/modifications for ADL. 3=Patient will improve strength/tolerance for activity to enable patient to p erform ADL's. RADHA RUIZ OT Nov 25, 2020 14:58
--- NOTE | 2020-11-26 11:56 | Therapy Team Discharge Summary ---
Therapy Discharge Summary Discharge Recommendations Date of Discharge Nov 25, 2020 at 12:29 Physical Therapy Patient came to rehab following Impacted subcapital fracture left hip repair. Upon evaluation patient performed bed mobility and supine <-> sit with min assist, sit <-> stand CGA, transfers CGA, car transfer min assist, ambulated 35' with a rolling walker with CGA (including 10' over an uneven surface), propelled a manual WC 50' with SBA, and went up and down 1 step using a rolling walker with CGA. Patient has been performing bed mobility and transfer training, balance and endurance training, functional strengthening, stair training, gait training, and education. 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 Now, patient performs bed mobility and supine <-> sit with SBA, transfers CGA, ambulated 80' with a rolling walker with CGA, and propelled a manual WC 150' with SBA. Patient was discharged to the 4th floor and will be discharged from rehab at this time. Occupational Therapy Decreased Activ Tolerance, Decreased Safety Aware, Decreased UE Strength, Impaired Funct Balance, Impaired I ADL's, Impaired Self-Care Skills PT Heavy Repairer Goals Heavy Repairer Goals PT [facility] Goals Time Frame: Dec 14, 2020 Roll Left to Right (QC): 6 Sit to Lying (QC): 6 Lying-Sitting on Side/Bed(QC): 6 Sit to Stand (QC): 6 Chair/Glm-hg-Eabyn Xfer(QC): 6 Car Transfer (QC): 6 Does the Patient Walk: Yes Walk 10 feet (QC): 6 Walk 10ft-Uneven Surface(QC): 6 Walk 50ft with 2 Turns (QC): 6 Walk 150 ft (QC): 6 Wheel 50 feet with 2 turns (QC: 9 1 Step (curb) (QC): 6 4 Steps (QC): 6 12 Steps (QC): 6 Picking up an Object (QC): 88 OT [facility] Goals Heavy Repairer Goals Time Frame: Dec 18, 2020 Eating (QC): 6 (met) Oral Hygiene (QC): 6 (not met) Shower/Bathe Self (QC): 6 (not met) Upper Body Dressing (QC): 6 (not met) Lower Body Dressing (QC): 6 (not met) On/Off Footwear (QC): 6 (not met) Toileting Hygiene (QC): 6 (not met) Toilet/Commode Transfer (QC): 6 (not met) Additional Goals: 1-Demonstrate ADL Tasks, 2-Verbalize Understanding, 3- ImproveStrength/Virgilio 1=Demonstrate adherence to instructed precautions during ADL tasks. 2=Patient will verbalize/demonstrate understanding of assistive devices/modifications for ADL. 3=Patient will improve strength/tolerance for activity to enable patient to perform ADL's. RAVEN LOAIZA PT Nov 26, 2020 11:56
[2020-11-27] MEDS ORDERED: AMOX250C PO (13:28)
== END 2020-11-25 12:29 | disposition short-term general hospital (02) | DRG 560 ==
PROVIDERS: ADMIT Internal Medicine; ATTEND Internal Medicine
DX: S72.012D Unspecified intracapsular fracture of left femur, subsequent encounter for closed fracture with routine healing (principal); I50.22 Chronic systolic (congestive) heart failure; I42.0 Dilated cardiomyopathy; I11.0 Hypertensive heart disease with heart failure; I48.91 Unspecified atrial fibrillation; I25.10 Atherosclerotic heart disease of native coronary artery without angina pectoris; R41.0 Disorientation, unspecified; F29 Unspecified psychosis not due to a substance or known physiological condition; N40.0 Benign prostatic hyperplasia without lower urinary tract symptoms; F41.9 Anxiety disorder, unspecified; M54.5 Low back pain; D64.9 Anemia, unspecified; E78.00 Pure hypercholesterolemia, unspecified; E78.5 Hyperlipidemia, unspecified; Z79.01 Long term (current) use of anticoagulants; Z87.891 Personal history of nicotine dependence; Z95.5 Presence of coronary angioplasty implant and graft; Z86.718 Personal history of other venous thrombosis and embolism; I25.2 Old myocardial infarction; Z79.82 Long term (current) use of aspirin; W19.XXXD Unspecified fall, subsequent encounter
CPT/HCPCS: 36415; 80053; 85025

== ENCOUNTER 2020-11-25 10:05 | Inpatient (IN) | payer MEDICARE, OTHER ==
[~2020-11-25] VITALS: Ht 188 cm; Wt 74.0 kg
[2020-11-25] MEDS ORDERED: ZIPRASIDONE INJECTION 20 MG in WATER (STERILE) FOR INJECTION 1.2 ML IM PRN (11:00)
[2020-11-25] MEDS ORDERED: LORazepam INJ 2 MG/ML (ATIVAN) VIAL IM PRN (11:00)
[2020-11-25] MEDS ORDERED: LORazepam INJ 2 MG/ML (ATIVAN) VIAL IVP PRN (11:00)
[2020-11-25] MEDS ORDERED: HALOPERIDOL 5 MG/ML (HALDOL) VIAL IM PRN (11:00)
[2020-11-25 11:48] LABS: BASOPHILS % (AUTO) 0 % (0-10); EOSINOPHILS # (AUTO) 0.1 10^3/uL (0.0-0.3); EOSINOPHILS % (AUTO) 1 % (0-10); HEMATOCRIT 31 % (40-54); HEMOGLOBIN 10.8 g/dL (13.3-17.7); LYMPHOCYTES # (AUTO) 1.1 10^3/uL (1.0-4.0); LYMPHOCYTES % (AUTO) 18 % (12-44); MEAN CORPUSCULAR HEMOGLOBIN 33 pg (25-34); MEAN CORPUSCULAR HGB CONC 35 g/dL (32-36); MEAN CORPUSCULAR VOLUME 95 fL (80-99); MEAN PLATELET VOLUME 12.6 fL (9.0-12.2); MONOCYTES # (AUTO) 0.7 10^3/uL (0.0-1.0); MONOCYTES % (AUTO) 10 % (0-12); NEUTROPHILS # (AUTO) 4.5 10^3/uL (1.8-7.8); NEUTROPHILS % (AUTO) 70 % (42-75); PLATELET COUNT 125 10^3/uL (130-400); WHITE BLOOD COUNT 6.3 10^3/uL (4.3-11.0)
[2020-11-25 11:51] LABS: ALBUMIN 3.2 GM/DL (3.2-4.5); CHLORIDE 106 MMOL/L (98-107); POTASSIUM 3.9 MMOL/L (3.6-5.0); SODIUM 137 MMOL/L (135-145)
[2020-11-25 11:53] LABS: CALCIUM 8.7 MG/DL (8.5-10.1)
[2020-11-25 11:54] LABS: GLUCOSE 109 MG/DL (70-105); TOTAL PROTEIN 5.7 GM/DL (6.4-8.2)
[2020-11-25 11:55] LABS: CARBON DIOXIDE 27 MMOL/L (21-32)
[2020-11-25 11:56] LABS: BILIRUBIN,TOTAL 1.2 MG/DL (0.1-1.0)
[2020-11-25 11:57] LABS: ALKALINE PHOSPHATASE 53 U/L (40-136); CREATININE SERUM 0.79 MG/DL (0.60-1.30); GFR ESTIMATED > 60
[2020-11-25 11:58] LABS: BUN/CREATININE RATIO 19
[2020-11-25 12:00] LABS: ALANINE AMINOTRANSFERASE 16 U/L (0-55)
--- NOTE | 2020-11-25 12:21 | Diagnostic Imaging Report ---
INDICATION: Confusion. Frontal chest obtained at 11:57 a.m. and compared with 11/20/2020. There is cardiomegaly. Aorta is tortuous. There is some mild atelectatic change or infiltrate in the right base, similar to the prior study. Left lung is clear. There is no pneumothorax. There are some left apical pleural calcifications. There is a trace of pleural fluid in the right costophrenic angle. IMPRESSION: Cardiomegaly. Mild right basilar atelectasis versus mild infiltrate. Minimal right pleural effusion. There is some left apical pleural calcification which appears chronic. Dictated by: Dictated on workstation # [id number]
[2020-11-25 12:45] VITALS: BP 121/61
[2020-11-25] MEDS ORDERED: VANCOMYCIN INJECTION 1,250 MG in NS (IVPB) 250 ML IV NR ×2 (13:17→15:15)
[2020-11-25] MEDS ORDERED: HYDROcodone/APAP 10 MG/325 MG (LORTAB) TAB PO PRN (13:30)
[2020-11-25] MEDS ORDERED: FLEET ENEMA ADULT 1 EA BTL PR PRN (13:30)
[2020-11-25] MEDS ORDERED: ONDANSETRON 4 MG (ZOFRAN) ORAL DISSOLVE TAB PO PRN (13:30)
[2020-11-25] MEDS ORDERED: ALPRAZolam 0.25 MG (XANAX) TAB PO PRN (13:30)
[2020-11-25] MEDS ORDERED: ACETAMINOPHEN 500 MG TAB (TYLENOL) PO PRN (13:30)
[2020-11-25] MEDS ORDERED: ONDANSETRON 4 MG/2 ML (SDV) Z0FRAN IVP PRN (13:30)
[2020-11-25] MEDS ORDERED: DOCUSATE SODIUM 100 MG (COLACE) CAP PO PRN (13:30)
[2020-11-25] MEDS ORDERED: BISACODYL 10 MG SUPP (DULCOLAX) PR PRN (13:30)
[2020-11-25] MEDS ORDERED: diphenhydrAMINE 25 MG TAB (BENADRYL) PO PRN (13:30)
[2020-11-25] MEDS ORDERED: fentaNYL INJECTION 100 MCG/2 ML AMP IVP PRN (13:30)
[2020-11-25] MEDS ORDERED: CALCIUM CARBONATE 500 MG (TUMS) TAB.CHEW PO PRN (13:30)
[2020-11-25] MEDS ORDERED: guaiFENesin/CODEINE (ROBITUSSIN AC) 10ML UDC PO PRN (13:30)
[2020-11-25] MEDS ORDERED: MELATONIN 3 MG TABLET PO PRN (13:30)
[2020-11-25 13:43] LABS: ABG BASE EXCESS -0.4 MMOL/L (-2.5-2.5); ABG OXYGEN SATURATION 99 % (94-100); ABG PCO2 32 MMHG (35-45); ABG PH 7.47 (7.37-7.43); ABG PO2 100 MMHG (79-93); ABG TCO2 23.9 MMOL/L (21.0-31.0)
[2020-11-25 13:44] LABS: ALLENS TEST YES-POS; INSPIRED O2 ROOM AIR; PATIENT TEMP 36.7; VENTILATOR NO
--- NOTE | 2020-11-25 14:08 | NUR ---
VANCOMYCIN DOSING SCR 0.79 (USED 1.0); ACT BW 66 KG; CRCL ~ 52; BOLUS VANC 20 MG/KG X 66 KG ~ 1250 MG THEN VANC 15 MG/KG ~ 1 GM Q24H CHECK TROUGH LEVEL BEFORE 3RD DOSE 11/27 1230 HOLD DOSE AND CONTACT PHARMACY IF LEVEL IS GREATER THAN 20
--- NOTE | 2020-11-25 14:15 | Diagnostic Imaging Report ---
PROCEDURE: CT head without contrast. TECHNIQUE: Multiple contiguous axial images were obtained through the brain without the use of intravenous contrast. Auto Exposure Controls were utilized during the CT exam to meet ALARA standards for radiation dose reduction. INDICATION: Confusion. Patient is one week postop hip surgery. Correlation is made with prior CT from 11/18/2020. Ventricles and sulci are prominent consistent with the patient's age. Moderate periventricular hypodensity is noted consistent with senescent change. No sulcal effacement or midline shift is identified. No acute intra-axial or extra-axial hemorrhage is seen. Cisterns are patent. Visualized paranasal sinuses are clear. IMPRESSION: Chronic and senescent changes. No acute intracranial process is detected. Dictated by: Dictated on workstation # [id number]
--- NOTE | 2020-11-25 15:19 | NUR ---
"RD ASSESSMENT PMHx: afib; DVT; hypercholesterolemia; HTN; BPH; PT INTERACTION: Pt was awake and pleasant during nutrition assessment. Note nutrition assessment occurred on IRF. Pt states current appetite is not good, and that this is normal for him. Note avg PO intake 25-50% x1d, per chart review. Pt states following a regular diet at home, and has some issues with swallowing food. Pt states no recent issues with nausea, vomiting, constipation, or diarrhea. Note last BM was 1/5, and pt currently on bowel regimen of colace BID, senna BID, and miralax BID, per chart review. Pt states no recent wt changes. Note recent 3# wt loss x8mon, per chart review. Est. kcal needs: 9763-7557 kcal | 30-35 kcal/kg Est. Pro needs: 67-80 g Pro | 0.8-1.0 g Pro/kg PES STATEMENT: Inadequate oral intake (NI-2.1) related to loss of appetite, as evidenced by pt interview and avg PO intake 25-50% x1d. INTERVENTION: Continue with current diet order of Regular diet. Add Ensure Enlive (vary) to meals TID, for increased kcal intake. Provides 350 kcal and 20 g Pro per serving. Will continue to follow and reassess as pt needs, intake, and status change. Rose BHAKTA, MS RD LD [phone] cell"
[2020-11-25 16:49] VITALS: BP 110/71
[2020-11-25 18:31] LABS: BILIRUBIN,URINE NEGATIVE (NEGATIVE); CLARITY,URINE CLOUDY; COLOR,URINE YELLOW; GLUCOSE, URINE (UA) NEGATIVE (NEGATIVE); KETONES,URINE NEGATIVE (NEGATIVE); LEUKOCYTE ESTERASE ,URINE 2+ (NEGATIVE); NITRITE,URINE NEGATIVE (NEGATIVE); PROTEIN,URINE NEGATIVE (NEGATIVE)
[2020-11-25] MEDS: CATHETER FLUSH 10 ML SYR IV SCH ×2 (18:34→22:43)
[2020-11-25 19:01] LABS: BACTERIA,URINE MODERATE /HPF; WBC,URINE 50-100 /HPF
[2020-11-25 19:04] LABS: AMORPHOUS SEDIMENT,UR FEW AMOR URATES /LPF
[2020-11-25 19:41] VITALS: BP 112/72
--- NOTE | 2020-11-25 20:00 | NUR ---
COOPERATIVE. STATES "TELL ME IF I'M ACTING UP OR SAYING BAD WORDS TO YOU". MEDICATED FOR LEFT KNEE PAIN. VOIDS IN SMALL AMOUNTS. IV NOT PATENT AND RESTARTED.
[2020-11-25] MEDS: APIXABAN 5 MG (ELIQUIS) TABLET PO SCH (20:16)
[2020-11-25] MEDS: polyethylene glycoL POWDER 17 GM (MIRALAX) PACK PO SCH (20:16)
[2020-11-25] MEDS: LACTULOSE SYRUP 10GM/15ML (ENULOSE) 30ML UDC PO SCH (20:16)
[2020-11-25] MEDS: SENNA W/DOCUSATE (SENOKOT S) TABLET PO SCH (20:17)
[2020-11-25] MEDS: PIPERACILLIN/TAZOBACTAM (BULK) 4.5 GM in NS (IVPB) 100 ML IV NR ×2 (20:29→20:30)
[2020-11-25] MEDS ORDERED: NS (IVPB) 100 ML ONE (20:30)
[2020-11-25] MEDS ORDERED: NS (IVPB) 250 ML ONE (20:30)
[2020-11-25] MEDS ORDERED: VANCOMYCIN 750 MG/VIAL IV ONE (20:30)
--- NOTE | 2020-11-25 20:30 | NUR ---
INITIAL ZOSYN WOULD NOT SCAN, BUT IT WAS GIVEN.
[2020-11-25] MEDS ORDERED: VANCOMYCIN 500 MG/VIAL IV ONE (20:31)
--- NOTE | 2020-11-25 21:00 | NUR ---
VANCOMYCIN VIAL 500 MG WOULD NOT SCAN, BUT WAS GIVEN.
[2020-11-26] VITALS: BP 117/62
[2020-11-26] MEDS: PIPERACILLIN/TAZOBACTAM (BULK) 4.5 GM in NS (IVPB) 100 ML IV SCH ×2 (01:00→08:15)
[2020-11-26 04:00] VITALS: BP 125/64
[2020-11-26] MEDS: CATHETER FLUSH 10 ML SYR IV SCH ×3 (05:04→20:04)
[2020-11-26 07:16] LABS: BASOPHILS % (AUTO) 0 % (0-10); EOSINOPHILS # (AUTO) 0.1 10^3/uL (0.0-0.3); EOSINOPHILS % (AUTO) 1 % (0-10); HEMATOCRIT 29 % (40-54); HEMOGLOBIN 9.9 g/dL (13.3-17.7); LYMPHOCYTES % (AUTO) 22 % (12-44); MEAN CORPUSCULAR HEMOGLOBIN 33 pg (25-34); MEAN CORPUSCULAR HGB CONC 35 g/dL (32-36); MEAN CORPUSCULAR VOLUME 96 fL (80-99); MEAN PLATELET VOLUME 12.5 fL (9.0-12.2); MONOCYTES # (AUTO) 0.5 10^3/uL (0.0-1.0); MONOCYTES % (AUTO) 11 % (0-12); NEUTROPHILS % (AUTO) 65 % (42-75); PLATELET COUNT 113 10^3/uL (130-400); WHITE BLOOD COUNT 4.6 10^3/uL (4.3-11.0)
[2020-11-26 07:23] LABS: ALBUMIN 2.9 GM/DL (3.2-4.5); CHLORIDE 106 MMOL/L (98-107); POTASSIUM 3.6 MMOL/L (3.6-5.0); SODIUM 138 MMOL/L (135-145)
[2020-11-26 07:24] LABS: CALCIUM 8.2 MG/DL (8.5-10.1)
[2020-11-26 07:25] LABS: GLUCOSE 109 MG/DL (70-105)
[2020-11-26 07:26] LABS: CARBON DIOXIDE 20 MMOL/L (21-32)
[2020-11-26 07:27] LABS: BILIRUBIN,TOTAL 1.3 MG/DL (0.1-1.0)
[2020-11-26 07:29] LABS: ALKALINE PHOSPHATASE 47 U/L (40-136); CREATININE SERUM 0.77 MG/DL (0.60-1.30); GFR ESTIMATED > 60
[2020-11-26 07:30] LABS: BUN/CREATININE RATIO 16
[2020-11-26 07:32] LABS: ALANINE AMINOTRANSFERASE 13 U/L (0-55)
[2020-11-26 08:00] VITALS: BP 129/77
[2020-11-26] MEDS: APIXABAN 5 MG (ELIQUIS) TABLET PO SCH ×2 (08:16→20:03)
[2020-11-26] MEDS: LACTULOSE SYRUP 10GM/15ML (ENULOSE) 30ML UDC PO SCH ×2 (09:01→19:51)
[2020-11-26] MEDS: polyethylene glycoL POWDER 17 GM (MIRALAX) PACK PO SCH ×2 (09:02→19:51)
[2020-11-26] MEDS: SENNA W/DOCUSATE (SENOKOT S) TABLET PO SCH ×2 (09:02→19:52)
--- NOTE | 2020-11-26 09:51 | Progress Note - Cardiology ---
Cardiology SOAP Progress Note Subjective: Up at the bedside Denies any CP or SOB Upset with recovery post operatively Objective: I&O/Vital Signs 11/27/20 11/27/20 11/27/20 11/27/20 04:32 08:00 08:49 12:00 Temp 36.4 36.7 36.7 Pulse 97 103 77 Resp 18 20 20 B/P (MAP) 118/66 (83) 134/88 (103) 113/57 (75) Pulse Ox 95 98 98 97 O2 Delivery Room Air Room Air Room Air Room Air 11/27/20 00:00 Intake Total 1320 ml Output Total 550 ml Balance 770 ml Weight (Pounds): 163 Weight (Ounces): 2.0 Weight (Calculated Kilograms): 73.620000 Constitutional: AAO x 3, other (frail) Respiratory: No accessory muscle use, No respiratory distress; chest expansion is symmetric, chest is bilaterally symmetric, lungs clear to auscultation Cardiovascular: irregularly irregular; No JVD; S1 and S2, systolic murmur Gastrointestional: No tender; soft, audible bowel sounds Extremities: no lower extremity edema bilateral Neurologic/Psychiatric: grossly intact (moves all extremities) Skin: No rash on exposed areas, No ulcerations on exposed areas; other (Dressing in place to left hip post surgical site - not removed) Results/Procedures: Labs Laboratory Tests 11/27/20 04:10: White Blood Count 4.8, Red Blood Count 2.91L, Hemoglobin 9.5L, Hematocrit 28L, Mean Corpuscular Volume 96, Mean Corpuscular Hemoglobin 33, Mean Corpuscular Hemoglobin Concent 34, Red Cell Distribution Width 15.1H, Platelet Count 109L, Mean Platelet Volume 11.8, Immature Granulocyte % (Auto) 0, Neutrophils (%) (Auto) 52, Lymphocytes (%) (Auto) 34, Monocytes (%) (Auto) 12, Eosinophils (%) (Auto) 2, Basophils (%) (Auto) 0, Neutrophils # (Auto) 2.5, Lymphocytes # (Auto) 1.6, Monocytes # (Auto) 0.6, Eosinophils # (Auto) 0.1, Basophils # (Auto) 0.0, Immature Granulocyte # (Auto) 0.0, Sodium Level 137, Potassium Level 3.6, Chloride Level 106, Carbon Dioxide Level 23, Anion Gap 8, Blood Urea Nitrogen 9, Creatinine 0.71, Estimat Glomerular Filtration Rate > 60, BUN/Creatinine Ratio 13, Glucose Level 101, Calcium Level 8.0L Microbiology 11/25/20 Urine Culture - Final, Complete Enterococcus faecalis Mixed Bacterial [place] 11/25/20 Blood Culture - Preliminary, Resulted No growth A/P: Assessment: UTI - managment per medical services Nonsyncopal fall leading to left hip fracture on 11-18-2020, treated with fem oral neck fixation on 11/19/20 A Fib with RVR. Long-acting dilt for rate control. 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 Last cath was on 05/20/14. It showed diffuse disease consisting of up to 50% stenoses in all cors. FFR across multiple mid-vessel LAD lesions was 0.92, indicating hemodynamic insignificance. There was a patent stent in mid LAD and in distal RCA. Distal RCA stent is known to be Promus [id number] placed in Aug 2012. LVEF on cath of May 2014 was 45% and LVEDP was mildly elevated Hyperlipidemia, but the patient is intolerant to statins. Postural hypotension, resolved following cessation of therapy with RYAN inhibitors and Terazosin. Multiple medication intolerances. See below. Intolerance to beta-blockers on account of symptomatic bradycardia and hypotension. Intolerance to RYAN inhibitors on account of postural hypotension Intolerance to ARBs on account of dizziness. Intolerance to warfarin due to nonspecific symptoms and fear of side effects - has tolerated apixaban Mild carotid arterial disease (less than 40%) per carotid ultrasonography of May 2016. Chronic moderate vertigo. Chronic low back pain, s/p low low back kyphoplasty, but back pain has persisted Plan: Continue current cardiac regimen Monitor lab Re-assured pt regarding treatment plan Management of UTI per medical services CAITLYN SANTILLAN Nov 26, 2020 09:51
--- NOTE | 2020-11-26 10:35 | Physical Therapy Evaluation ---
PT Evaluation-General Medical Diagnosis Admission Date Nov 25, 2020 at 10:05 Medical Diagnosis: Delirium Onset Date: Nov 25, 2020 Therapy Diagnosis Therapy Diagnosis: debility Height/Weight Height (Feet): 6 Height (Inches): 2.00 Weight (Pounds): 163 Weight (Ounces): 2.0 Precautions Precautions/Isolations: Fall Prevention, Standard Precautions Weight Bear Status Right Lower Extremity: Right Weight Bearing/Tolerated Left Lower Extremity: Left Partial Weight Bearing Referral Physician: Kwame Reason for Referral: Evaluation/Treatment Medical History Pertinent Medical History: Atrial Fib, HTN, SC Additional Medical History left hip fracture with repair Current History Transfer from [facility] secondary to delirium Reviewed History: Yes Social History Home: Single Level Current Living Status: Spouse Entry Into Home: Stairs With Railing PT Steps Into Home: 3 Prior Prior Level of Function SCALE: Activities may be completed with or without assistive devices. 0-Dsvilhzyno-nlqiftn completes the activity by him/herself with no assistance from a helper. 5-Set-up or Clean-up Assistance-helper sets up or cleans up; patient completes activity. [place] assists only prior to or following the activity. 4-Supervision or Touching Assistance-helper provides verbal cues and/or touching/steadying and/or contact guard assistance as patient completes activity. Assistance may be provided throughout the activity or intermittently. 3-Partial/Moderate Assistance-helper does LESS THAN HALF the effort. [place] lifts, holds or supports trunk or limbs, but provides less than half the effort. 2-Substantial/Maximal Assistance-helper does MORE THAN HALF the effort. [place] lifts or holds trunk or limbs and provides more than half the effort. 8-Tytukmqzj-fejgdp does ALL the effort. Patient does none of the effort to complete the activity. Or, the assistance of 2 or more helpers is required for the patient to complete the activity. If activity was not attempted, code reason: 7-Patient Refused. 9-Not Applicable-not attempted and the patient did not perform the activity be fore the current illness, exacerbation or injury. 10-Not Attempted due to Environmental Limitations-(lack of equipment, weather restraints, etc.). 88-Not Attempted due to Medical Conditions or Safety Concerns. Bed Mobility: 6 Transfers (B,C,W/C): 6 Gait: 6 Stairs: 6 Indoor Mobility (Ambulation): Independent Stairs: Independent Prior Devices Use: None PT Evaluation-Current Subjective Patient agrees to PT but refuses to allow PT to assist him with anything. Objective Patient Orientation: Normal For Age Attachments: IV ROM/Strength ROM Lower Extremities bilateral LE WFL Strength Lower Extremities 4-/5 grossly bilateral LE Integumentary/Posture Integumentary refer to nursing notes Bowel Incontinence: Yes Bladder Incontinence: No Posture severe kyphosis Neuromuscular (Tone, Coordination, Reflexes) grossly intact Sensory Vision: Functional Hearing: Impaired Transfers Roll Left to Right (QC): 5 Sit to Lying (QC): 5 Lying to Sitting/Side of Bed(Q: 5 Sit to Stand (QC): 4 Chair/Ryg-dr-Tltpm Xfer(QC): 4 Toilet Transfer (QC): 4 SBA with sit to stand and bed to recliner/toilet transfer Gait Does the Patient Walk?: Yes Mode of Locomotion: Walk Walk 10 feet (QC): 4 Walk 50 ft with 2 Turns(QC): 4 Gait Assistive Device: FWW Comments/Gait Description PWB left LE maintained/SBA for safety Balance Sitting Static: Normal Sitting Dynamic: Normal Standing Static: Normal Standing Dynamic: Normal Picking up an Object (QC): 6 Assessment/Needs 85 y.o. male, will be seen short term by skilled PT to address functional strength and mobility. Patient is SBA to modified independent with mobility at this time. Rehab Potential: Fair PT Detention Goals Detention Goals PT Hadoop Analyst Goals Time Frame: Dec 04, 2020 Roll Left & Right (QC): 5 Sit to Lying (QC): 5 Lying-Sitting on Side/Bed(QC): 5 Sit to Stand (QC): 5 Chair/Iab-gb-Bhokd Xfer(QC): 5 Toilet Transfer (QC): 5 Does the Patient Walk: Yes Walk 10 feet (QC): 5 Walk 50ft with 2 Turns (QC): 5 Walk 150 ft (QC): 5 1 Step (curb) (QC): 5 4 Steps (QC): 5 PT Plan Treatment/Plan Treatment Plan: Continue Plan of Care Treatment Plan: Bed Mobility, Education, Functional Activity Virgilio, Functional Strength, Gait, Safety, Therapeutic Exercise, Transfers Treatment Duration: Dec 04, 2020 Frequency: 6 times per week Estimated Hrs Per Day: .25 hour per day Patient and/or Family Agrees t: Yes Discharge Recommendations Therapy Discharge Recommendati: Home & Family, Post Acute PT (home health) Time/GCodes Time In: 925 Time Out: 935 Total Billed Treatment Time: 10 Total Billed Treatment 1 visit EVMod 10 min JONA SAUNDERS PT Nov 26, 2020 10:35
[2020-11-26] MEDS: HYDROcodone/APAP 5 MG/325 MG (LORTAB) TAB PO PRN ×2 (11:13→16:59)
--- NOTE | 2020-11-26 11:45 | Occ Therapy Progress Note ---
Therapy Progress Note OT orders received and chart reviewed. OT attempted evaluation this AM, pt adamantly refused. OT educated pt on the benefits and purpose of OT but he still declined. Pt indicates he is just starting to get warm and he is not going to do work or get out of bed just to get cold again. OT will attempt again next available time. 1, refusal. RADHA RUIZ OT Nov 26, 2020 11:45
[2020-11-26 12:00] VITALS: BP 130/69
[2020-11-26] MEDS ORDERED: PIPERACILLIN/TAZOBACTAM (BULK) 4.5 GM in NS (IVPB) 100 ML IV NR (13:12)
--- NOTE | 2020-11-26 13:37 | Occ Therapy Progress Note ---
Therapy Progress Note OT evaluation attempted this afternoon, pt again declined therapy. Pt indicates he has been wiggling his toes and exercising his legs. OT educated pt on purpose and benefits of OT to increase independence with ADLS and focus on UEs, pt states "I know", but refuses OT tx. OT will attempt evaluation again tomorrow. 1, refusal [id number] RADHA RUIZ OT Nov 26, 2020 13:37
--- NOTE | 2020-11-26 14:07 | ST Cognitive Linguistic Eval ---
Speech Evaluation-General Medical Diagnosis Delirium Onset Date: Nov 25, 2020 Therapy Diagnosis Therapy Diagnosis: Cognitive-communication Referral Referring Physician: Dr. Puente Medical History Pertinent Medical History: Atrial Fib, HTN, [place] Reviewed History: Yes Social History Current Living Status: Spouse Speech PLF-Current Status Prior Level of Function Patient lives in the home with his where he was independent for most of his daily needs prior to the fall. Subjective Patient completed evaluation process with informal tasks. Language Eval: Auditory Comprehends Simple Yes/No Ques: Functional Indent/Objects Multiple Concepcion: Functional Ident/Pics in Multiple Concepcion: Functional Follows 1-Step Commands: Functional Follows Complex Directions: Mild Follows General Conversations: Functional Language Eval: Verbal Language Completes Spontaneous Greeting: Functional Produces Auto, Serial Info: Functional Imitates Simple Words/Phrases: Functional Word Finding: Functional Requests Basic Needs: Functional States Basic Personal Info: Functional Expresses Complex Ideas: Functional Objective Cognitive Domain Attention: WNL Memory: Mild Problem Solving: Functional Executive Functions: WNL Visuospatial Skills: WNL Composite Severity Rating: WNL Objective Formal/Standardized Tests ST interview, informal tasks Results Patient exhibits mild deficits, however he refuses therapy at this time Oral Motor/Speech Production Within Normal Limits Impression Patient is an 85 y/o male who was initially admitted to the in patient rehab. Patient exhibited some behaviors which resulted in his admission to the acute floor. Patient can be demanding and difficult at times. He was assessed at bedside regarding daily needs and current situation with mild deficits noted. Patient does not want any ST at this time and feels he is "doing just fine" and wants to go home as soon as possible. Speech Patient Assess Expression of Ideas/Wants: Exhibits (3) Understanding Verbal Content: Understands (4) Brief Interview-Mental Status: Yes Repetition of Three Words: Three (3) Temporal Orientation: Year: Correct (3) Temporal Orientation: Month: Accurate within 5 days(2) Temporal Orientation: Day: Correct (1) Recall : Wear to say "Sock": Yes,after cueing (1) Recall : Color: No, could not recall (0) Recall : Bed: No, could not recall (0) Memory/Recall Ability: Current season, That he or she is in a hsp/hsp unit Speech-Plan Patient/Family Goals Patient/Family Goals: Patient plans to discharge to his home where he lives with his . Treatment Plan Speech Therapy Treatment Plan: Discontinue ST Treatment Duration: Nov 26, 2020 Frequency: 1 time per week Estimated Hrs Per Day: .25 hour per day Rehab Potential: Fair Barriers to Learning: Patient's medical status, age Pt/Family Agrees to Plan: Yes Safety Risks/Education Teaching Methods: Discussion Response to Teaching: Verbalize Understanding Education Topics Provided: Safety within his room, communication of wants/needs Time Speech Therapy Time In: 13:30 Speech Therapy Time Out: 13:50 Total Billed Time: 20 Billed Treatment Time 1, RHIANNA Dover Nov 26, 2020 14:07
--- NOTE | 2020-11-26 14:10 | NUR ---
Spoke with Mickey RN about pt's current appetite. Mickey states pt is eating poorly. Placed order fo Ensure Enlive with meals TID, for increased kcal intake. Will continue to follow and reassess as pt needs, intake, and status change. Juan J Browne, MS RD LD [phone] cell
--- NOTE | 2020-11-26 14:15 | ST Cognitive Linguistic Eval ---
Speech Evaluation-General Medical Diagnosis Delirium Onset Date: Nov 25, 2020 Therapy Diagnosis Therapy Diagnosis: Cognitive-communication Referral Referring Physician: Dr. Puente Medical History Pertinent Medical History: Atrial Fib, HTN, [place] Reviewed History: Yes Social History Current Living Status: Spouse Speech PLF-Current Status Prior Level of Function Patient lived at the home with his prior to his fall with injury. Subjective Patient completed speech interview and informal tasks. Language Eval: Auditory Comprehends Simple Yes/No Ques: Functional Indent/Objects Multiple Concepcion: Functional Ident/Pics in Multiple Concepcion: Functional Follows 1-Step Commands: Functional Follows Complex Directions: Mild Follows General Conversations: Functional Language Eval: Verbal Language Completes Spontaneous Greeting: Functional Produces Auto, Serial Info: Functional Imitates Simple Words/Phrases: Functional Word Finding: Functional Requests Basic Needs: Functional States Basic Personal Info: Functional Expresses Complex Ideas: Mild Objective Cognitive Domain Attention: WNL Memory: Mild Problem Solving: Mild Executive Functions: Mild Objective Formal/Standardized Tests ST interview, informal tasks Results Mild deficits, however patient refuses therapy at this time Oral Motor/Speech Production Within Normal Limits Impression Patient is an 85 y/o male who was initially admitted to the ARU due to fractured hip. Patient was discharged to the acute floor due to behaviors and change in status. Patient was evaluated at bedside this afternoon with noted mild decreased cognitive function. The patient refuses to have ST at this time. He states he just wants to get out of here and go home. Speech-Plan Patient/Family Goals Patient/Family Goals: Patient plans on returning to his home upon discharge. Treatment Plan Speech Therapy Treatment Plan: Discontinue ST Treatment Duration: Nov 26, 2020 Frequency: 1 time per week Estimated Hrs Per Day: .25 hour per day Rehab Potential: Fair Barriers to Learning: Patient's medical status and age Pt/Family Agrees to Plan: Yes Safety Risks/Education Teaching Recipient: Patient Teaching Methods: Discussion Response to Teaching: Verbalize Understanding, Reinforcement Needed Education Topics Provided: Safety within his room and communication of wants/needs Time Speech Therapy Time In: 13:30 Speech Therapy Time Out: 13:50 Total Billed Time: 20 Billed Treatment Time 1, RHIANNA Dover Nov 26, 2020 14:15
--- NOTE | 2020-11-26 14:16 | History & Physical-Hospitalist ---
History of Present Illness HPI/Chief Complaint Mitchel Prince Jr is an 85-year-old male who had been admitted with a hip fracture. He underwent surgery and was then transferred to the inpatient rehabilitation unit. He had issues with delirium and was transferred back to the inpatient service. He denies having any fevers or chills. He denies any shortness of breath or cough. He denies any chest pain. He denies any abdominal pain. Denies any nausea or vomiting. He reports "kidney pain". 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 Patients Allergies have been reviewed. Allergies Allergies Coded Allergies Ojrqrqt-Ucq-Ghg Reductase Inhibitor (Unverified Allergy, Unknown, 03/12/19) codeine (Unverified Adverse Reaction, Mild, Altered taste, 02/13/15) Uncoded Allergies beta blockers ( Adverse Reaction, Severe, severe bradycardia, 04/07/20) Past Emejbia-Hdeiwu-Imtklv Hx Past Med/Social Hx: Reviewed Nursing Past Med/Soc Hx Patient Social History Alcohol Use: Denies Use Alcohol Beverage of Choice: Whiskey Recreational Drug Use: No Former Smoker, Quit: Dec 11, 1977 Type Used: Cigarettes Physical Abuse Screen: No Sexual Abuse: No Recent Foreign Travel: No Contact w/other who traveled: No Recent Hopitalizations: No Recent Infectious Disease Expo: No Immunizations Up To Date Tetanus Booster (TDap): Unknown Pediatric: No Date of Pneumonia Vaccine: Jul 29, 2020 Date of Influenza Vaccine: Aug 20, 2020 Seasonal Allergies Seasonal Allergies: No Past Medical History Surgeries: Coronary Stent, Orthopedic Cardiac: Atrial Fibrillation, Deep Vein Thrombosis, Heart Attack, High Cholesterol, Hypertension Neurological: Vertigo Reproductive: No Genitourinary: Benign Prostatic Hyperpl Gastrointestinal: Polyps Musculoskeletal: Chronic Back Pain Psychosocial: Anxiety History of Blood Disorders: No Adverse Reaction to Blood Agarwal: No Family History Patient reports no known family medical history. No Pertinent Family Hx Review of Systems Constitutional: see HPI Physical Exam Physical Exam Vital Signs Vital Signs - First Documented 11/25/20 11/25/20 12:43 12:45 Temp 35.8 Pulse 131 Resp 20 B/P (MAP) 121/61 Pulse Ox 99 O2 Delivery Room Air Capillary Refill : Less Than 3 Seconds Height, Weight, BMI Height: 6'2.00" Weight: 163lbs. 2.0oz. [id number]; 18.87 BMI Method:Stated General Appearance: No Apparent Distress, Thin Neck: Normal Inspection, Supple Respiratory: Lungs Clear, Normal Breath Sounds, No Respiratory Distress Cardiovascular: Regular Rate, Rhythm, No Edema, No Murmur Gastrointestinal: Normal Bowel Sounds, Non Tender, Soft Extremity: Normal Inspection, Non Tender, No Pedal Edema Neurologic/Psychiatric: Alert, Oriented x3, Motor Weakness, Other (irritable, vulgar) Skin: Normal Color, Warm/Dry Results Results/Procedures Labs Laboratory Tests 11/25/20 11:30 11/26/20 06:30 Patient resulted labs reviewed. Imaging: Reviewed Imaging Report Assessment/Plan Admission Diagnosis Delirium Admission Status: Inpatient Order (span 2 midnights) Reason for Inpatient Admission: UTI requiring IV antibiotics Hip fracture requiring therapies Assessment and Plan UTI Urine culture growing Enterococcus Started on Vancomycin and Zosyn Transition to Unasyn Delirium Likely due to UTI Improved Reorient as needed Hip fracture PT/OT Will likely need HH on discharge Social work consulted, appreciate assistance Atrial fibrillation Continue Diltiazem and Eliquis Cardiology following, appreciate assistance Diagnosis/Problems Diagnosis/Problems (1) UTI (urinary tract infection) Status: Acute (2) Delirium Status: Acute (3) Closed left hip fracture Status: Acute (4) Paroxysmal atrial fibrillation with RVR Status: Acute Clinical Quality Measures DVT/VTE Risk/Contraindication: Risk Factor Score Per Nursin RFS Level Per Nursing on Admit: 4+=Very High PEE FRANKS MD Nov 26, 2020 14:16
[2020-11-26] MEDS: AMPICILLIN/SULBACTAM INJECTION 1.5 GM in NS (IVPB) 100 ML IV SCH ×2 (15:10→20:04)
--- NOTE | 2020-11-26 15:32 | NUR ---
Visited with patient about the importance of therapies and encouraged him to participate to meet his ultimate goal of returning home independently. He visited with me for quite some time and agreed to participate in all therapies. He is ready to get home to be with his of 62yrs. I will f/u with him tomorrow to see how he is feeling and if he is able to work with both Physical and Occupational therapies.
[2020-11-26 15:55] VITALS: BP 128/76
[2020-11-26] MEDS ORDERED: VANCOMYCIN 1 GM/NS 250 ML IVPB IV SCH ×2 (18:00)
[2020-11-26 19:59] VITALS: BP 119/57
[2020-11-27] VITALS: BP 110/64
[2020-11-27] MEDS: AMPICILLIN/SULBACTAM INJECTION 1.5 GM in NS (IVPB) 100 ML IV SCH ×2 (01:41→09:05)
[2020-11-27] MEDS: HYDROcodone/APAP 5 MG/325 MG (LORTAB) TAB PO PRN ×2 (01:48→13:31)
[2020-11-27 04:32] VITALS: BP 118/66
[2020-11-27 05:11] LABS: BASOPHILS % (AUTO) 0 % (0-10); EOSINOPHILS # (AUTO) 0.1 10^3/uL (0.0-0.3); EOSINOPHILS % (AUTO) 2 % (0-10); HEMOGLOBIN 9.5 g/dL (13.3-17.7); MEAN CORPUSCULAR HEMOGLOBIN 33 pg (25-34)
[2020-11-27 05:13] LABS: HEMATOCRIT 28 % (40-54); LYMPHOCYTES # (AUTO) 1.6 10^3/uL (1.0-4.0); LYMPHOCYTES % (AUTO) 34 % (12-44); MEAN CORPUSCULAR HGB CONC 34 g/dL (32-36); MEAN CORPUSCULAR VOLUME 96 fL (80-99); MEAN PLATELET VOLUME 11.8 fL (9.0-12.2); MONOCYTES # (AUTO) 0.6 10^3/uL (0.0-1.0); MONOCYTES % (AUTO) 12 % (0-12); NEUTROPHILS # (AUTO) 2.5 10^3/uL (1.8-7.8); NEUTROPHILS % (AUTO) 52 % (42-75); PLATELET COUNT 109 10^3/uL (130-400); WHITE BLOOD COUNT 4.8 10^3/uL (4.3-11.0)
[2020-11-27 05:38] LABS: CHLORIDE 106 MMOL/L (98-107); POTASSIUM 3.6 MMOL/L (3.6-5.0); SODIUM 137 MMOL/L (135-145)
[2020-11-27 05:39] LABS: GLUCOSE 101 MG/DL (70-105)
[2020-11-27 05:41] LABS: CARBON DIOXIDE 23 MMOL/L (21-32)
[2020-11-27 05:43] LABS: CREATININE SERUM 0.71 MG/DL (0.60-1.30); GFR ESTIMATED > 60
[2020-11-27 05:44] LABS: BUN/CREATININE RATIO 13
[2020-11-27] MEDS: CATHETER FLUSH 10 ML SYR IV SCH ×2 (06:06→09:06)
--- NOTE | 2020-11-27 06:25 | NUR ---
PT STATED TO THIS RN THAT HE HAD BEEN DOING HIS EXERCISES FREQUENTLY THROUGH THE NIGHT. THE PT SHOWED THIS RN HOW HE WAS DOING HIS EXERCISES...HE WAS SLIDING HIS HEELS BACK AND FORTH ACROSS THE BED/MATTRESS. THIS RN EXAMINED HIS HEELS. THE LEFT HEEL NOW HAS A BLISTER WITH A PURPLE AREA; THE RIGHT HEEL IS NOT RED OR SOFT-ALLEVYN WERE PLACED TO THE BILATERAL HEELS. THIS RN EDUCATED THIS PT ON NOT SLIDING HIS HEELS ACROSS THE MATTRESS TO REDUCE PRESSURE AND SHEARING INJURIES. THE LEFT HIP DRESSING WAS CHANGED D/T HAVING SEROSANGUINEOUS DRAINAGE-DRESSING WAS SATURATED-A [place] DRESSING WAS PLACED ON THE HIP.
[2020-11-27] MEDS: polyethylene glycoL POWDER 17 GM (MIRALAX) PACK PO SCH (07:48)
[2020-11-27] MEDS: LACTULOSE SYRUP 10GM/15ML (ENULOSE) 30ML UDC PO SCH (07:48)
[2020-11-27] MEDS: SENNA W/DOCUSATE (SENOKOT S) TABLET PO SCH (07:49)
[2020-11-27 08:49] VITALS: BP 134/88
[2020-11-27] MEDS: APIXABAN 5 MG (ELIQUIS) TABLET PO SCH (09:05)
[2020-11-27] MEDS: LOPERAMIDE 2 MG (IMODIUM) TABLET PO PRN ×2 (09:09→13:23)
--- NOTE | 2020-11-27 10:29 | Physical Therapy Progress Note ---
Therapy Progress Note Pt refused ambulation with PT at this time stating "I need to sit on the commode, my stomach is grumbling." Per Dr. Rice, pt [place] home this date. ABIMAEL LUJAN PT Nov 27, 2020 10:29
[2020-11-27 12:00] VITALS: BP 113/57
--- NOTE | 2020-11-27 13:26 | Physician Query Clarification ---
"Physician Query-General Query to Physician: History/Risk factors: UTI, Advanced age Clinical Findings: Urine culture pos, Report of delirium just prior to admission while in rehab Improvement of mental status reported after Treatment for UTI, Treatment: Monitoring of Neuro status, Unasyn IV, Vancomycin IV, Ziprasidone Question: What condition best reflects the above clinical scenario? Please document response in the Progress notes or Discharge Summary. 1. Metabolic Encephalopathy likely due to UTI 2. Delirium likely due to UTI (as currently documented) 3. Other , with explanation of the clinical findings 4. Clinically undetermined, no explanation for the clinical findings Please remember a lack of response to the above will prompt a phone page by CDI/coding staff In responding to this query, please exercise your independent professional judgment. The purpose of this communication is to more accurately reflect the complexity of your patients condition. The fact that a question is asked does not imply that any particular answer is desired or expected. Thank you for timely response to this clarification. Anai Green, MSN, RN RN Specialist-Clinical Doc Improvement CD -Health Info [facility] Operations [address] [facility] t: [phone] | f: [phone] If you are unable to reach me at my extension, I may be working from home. Please contact me at [phone] PHYSICIAN RESPONSE: Based on the clinical findings in the record, please respond to the query above on this document as an addendum. Physician Response: Physician Response 2 If you have questions please contact: Casino Cage Supervisor: Ext: Thank you for your time and cooperation. [employer] Chief Creative Officer/Casino Cage Supervisor This is a permanent part of the medical record ANAI GREEN Nov 27, 2020 13:26 PEE FRANKS MD Dec 10, 2020 20:02"
[2020-11-27] MEDS ORDERED: AMOX250C PO (13:28)
[2020-11-27] MEDS ORDERED: AMOXICILLIN 250 MG (POLYMOX) CAP PO SCH (13:30)
--- NOTE | 2020-11-27 13:36 | Discharge Summary ---
Discharge Summary Reconcile Patient Problems Problems Reviewed?: Yes Instructions for Patient Via [facility], Assessment/Instructions Take medications as prescribed. complete your course of antibiotics even if you're feeling better. Follow-up with your primary care physician. Return with worsening pain or if you feel like you're getting worse. Physician to follow Patient: Stu Discharge Diet for Home: No Restrictions Hospital Course Date of Admission: Nov 25, 2020 at 10:05 Admission Diagnosis : UTI Family Physician/Provider: Elieser Peraza MD Date of Discharge: 11/27/20 Discharge Diagnosis: UTI Hospital Course: Mitchel Prince Jr is an 85-year-old male who was admitted with delirium and found to have a urinary tract infection. He had recently been admitted with a hip fracture and underwent surgical repair. He was transferred to the inpatient rehabilitation unit for therapies. He was transferred back to the inpatient service due to delirium and was found to have a UTI. He was treated with IV antibiotics initially and responded well. He was prescribed a course of amoxicillin on discharge. He was set up with home health care for ongoing therapies. He should follow-up with his primary care physician in about a week. He was discharged home in stable condition. Labs and Pending Lab Test: Laboratory Tests 11/27/20 04:10: White Blood Count 4.8, Red Blood Count 2.91L, Hemoglobin 9.5L, Hematocrit 28L, Mean Corpuscular Volume 96, Mean Corpuscular Hemoglobin 33, Mean Corpuscular Hemoglobin Concent 34, Red Cell Distribution Width 15.1H, Platelet Count 109L, Mean Platelet Volume 11.8, Immature Granulocyte % (Auto) 0, Neutrophils (%) (Auto) 52, Lymphocytes (%) (Auto) 34, Monocytes (%) (Auto) 12, Eosinophils (%) (Auto) 2, Basophils (%) (Auto) 0, Neutrophils # (Auto) 2.5, Lymphocytes # (Auto) 1.6, Monocytes # (Auto) 0.6, Eosinophils # (Auto) 0.1, Basophils # (Auto) 0.0, Immature Granulocyte # (Auto) 0.0, Sodium Level 137, Potassium Level 3.6, Chloride Level 106, Carbon Dioxide Level 23, Anion Gap 8, Blood Urea Nitrogen 9, Creatinine 0.71, Estimat Glomerular Filtration Rate > 60, BUN/Creatinine Ratio 13, Glucose Level 101, Calcium Level 8.0L Microbiology 11/25/20 Urine Culture - Final, Complete Enterococcus faecalis Mixed Bacterial [place] 11/25/20 Blood Culture - Preliminary, Resulted No growth Home Meds Active Amoxicillin 250 Mg Capsule 250 Mg PO TID 5 Days Reported Cartia Xt (Diltiazem HCl) 120 Mg Cap.er.24h 240 Mg PO HS TAKES 2 (120MG) CAPS Cartia Xt (Diltiazem HCl) 120 Mg Cap.er.24h 120 Mg PO DAILY Stool Softener (Docusate Sodium) 100 Mg Capsule 200 Mg PO 1200,2100 Centravites 50 Plus Tablet (Multivit-Min/FA/Lycopen/Lutein) 1 Each Tablet 1 Each PO 1200 Aspirin EC (Aspirin) 81 Mg Tablet.dr 81 Mg PO 1200 Eliquis (Apixaban) 5 Mg Tablet 5 Mg PO BID Patient Allergies: Coded Allergies: Vgabfnw-Gca-Dtp Reductase Inhibitor (Unverified Allergy, Unknown, 03/12/19) codeine (Unverified Adverse Reaction, Mild, Altered taste, 02/13/15) Uncoded Allergies: beta blockers (Adverse Reaction, Severe, severe bradycardia, 04/07/20) Height (Feet): 6 Height (Inches): 2.00 Weight (Pounds): 163 Weight (Ounces): 2.0 Home Health Need/Face to Face Date of Face to Face: Nov 27, 2020 Clinical Findings: Generalized weakness and fatigue, Instability, Muscle weakness, Unsteady gait I have seen Pt fxmo-yu-rhan: Yes Discharged To: Home Diagnosis/Conditions: Hip fracture Problems/Diagnosis/Condition: (1) Closed left hip fracture Patient is Homebound due to: Liana fall risk due to instabilty, Muscle weakness Homebound Status Due to the above stated illness, injury or surgical procedure (medical condition or diagnosis) and associated clinical findings, the patient is homebound because of his/her inability to leave home except with aid of a supportive device and/or person AND leaving the home requires a considerable and taxing effort or is medically contraindicated. Pt req the following assistanc: Aid of another person Home Health Nursing Orders Home Health Services Order: Nursing Services, Welfare Adviser-Evaluate & Neo at, Physical Therapy-Evaluate & Treat Therapy Orders Therapy Orders: OT (must have SN or PT order), Physical Therapy Therapy Specific Orders: Eval assistive deivces, Teach enviro modifications/safety, Gait training, Increase strength/endurance Certify Stmt I certify that this patient is under my care and that I, a nurse practitioner or a physician; a client services assistant working with me, had a face to face encounter that - meets the physician face to face encounter requirements with this patient as dated. Discharge Physical Exam General: Alert, Oriented X3, Cooperative, No Acute Distress, Other (thin) HEENT: Atraumatic, EOMI, Mucous Memb Moist/[place] Lungs: Clear to Auscultation, Normal Air Movement Heart: Regular Rate, Normal S1, Normal S2, No Murmurs Abdomen: Normal Bowel Sounds, Soft, No Tenderness Extremities: No Edema, No Tenderness/Swelling Skin: No Rashes, No Significant Lesion Neuro: Normal Speech, Normal Tone, Other (motor weakness) Psych/Mental Status: Mental Status NL, Mood NL PEE FRANKS MD Nov 27, 2020 13:36
--- NOTE | 2020-11-27 14:32 | NUR ---
CM FINALIZED DISCHARGE PLAN: Patient is discharging to home today with Home Health Care. He was visiting with his on the phone when I went to visit about HHC agencies. They selected [facility] as their HHC provider. Called and notified [facility] of consult. Patient asked about a bedside commode. Updated him that a bedside commode is not covered under insurance and estimated out of pocket cost will be $35-$45.
--- NOTE | 2020-11-27 14:39 | Occ Therapy Progress Note ---
Therapy Progress Note Pt declined OT evaluation on this date stating he is planning on discharging today. OT educated pt on purpose and benefit of OT but pt declines, stating he needs to save his energy in order to get home. OT will attempt eval next available date if pt is still admitted. 1, refusal [id number] RADHA RUIZ OT Nov 27, 2020 14:39
--- NOTE | 2020-11-27 14:47 | Cardiology Progress Note ---
Cardiology SOAP Progress Note Subjective: no cardiac complaints Objective: I&O/Vital Signs Weight (Pounds): 163 Weight (Ounces): 2.0 Weight (Calculated Kilograms): 73.289522 Constitutional: AAO x 3, other (frail) Respiratory: No accessory muscle use, No respiratory distress; chest expansion is symmetric, chest is bilaterally symmetric, lungs clear to auscultation Cardiovascular: irregularly irregular; No JVD; S1 and S2, systolic murmur Gastrointestional: No tender; soft, audible bowel sounds Extremities: no lower extremity edema bilateral Neurologic/Psychiatric: grossly intact (moves all extremities) Skin: No rash on exposed areas, No ulcerations on exposed areas; other (Dressing in place to left hip post surgical site - not removed) Results/Procedures: Labs Microbiology 11/25/20 Urine Culture - Final, Complete Enterococcus faecalis Mixed Bacterial [place] 11/25/20 Blood Culture - Preliminary, Resulted No growth A/P: Assessment/Dx: UTI - managment per medical services Nonsyncopal fall leading to left hip fracture on 11-18-2020, treated with femoral neck fixation on 11/19/20 A Fib with RVR. Long-acting dilt for rate control. 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 Last cath was on 05/20/14. It showed diffuse disease c onsisting of up to 50% stenoses in all cors. FFR across multiple mid-vessel LAD lesions was 0.92, indicating hemodynamic insignificance. There was a patent stent in mid LAD and in distal RCA. Distal RCA stent is known to be Promus [id number] placed in Aug 2012. LVEF on cath of May 2014 was 45% and LVEDP was mildly elevated Hyperlipidemia, but the patient is intolerant to statins. Postural hypotension, resolved following cessation of therapy with RYAN inhibitors and Terazosin. Multiple medication intolerances. See below. Intolerance to beta-blockers on account of symptomatic bradycardia and hypotension. Intolerance to RYAN inhibitors on account of postural hypotension Intolerance to ARBs on account of dizziness. Intolerance to warfarin due to nonspecific symptoms and fear of side effects - has tolerated apixaban Mild carotid arterial disease (less than 40%) per carotid ultrasonography of May 2016. Chronic moderate vertigo. Chronic low back pain, s/p low low back kyphoplasty, but back pain has persisted Plan: Plan: Continue current cardiac regimen Monitor lab Re-assured pt regarding treatment plan Management of UTI per medical services Thank you for your consultation. Please call me if you have any questions. Wing Brady MD, FACP, FACC, FSCAI, FHRS, CCDS Interventional Cardiology Cardiac Electrophysiology Vascular Medicine and Endovascular Interventions Focused Exam Lactate Level Delbert BRADY MD Nov 27, 2020 14:47
[2020-11-27 15:45] VITALS: BP 113/57
[2020-11-27] MEDS ORDERED: TROUGH ORDER-PHARMACY XX NR (17:00)
== END 2020-11-27 15:46 | disposition home health service (06) | DRG 690 ==
LOC: 4TH 10:05
PROVIDERS: ADMIT Internal Medicine; ATTEND Internal Medicine
DX: N39.0 Urinary tract infection, site not specified (principal); I50.22 Chronic systolic (congestive) heart failure; I42.0 Dilated cardiomyopathy; B95.2 Enterococcus as the cause of diseases classified elsewhere; R41.0 Disorientation, unspecified; S72.002D Fracture of unspecified part of neck of left femur, subsequent encounter for closed fracture with routine healing; I48.0 Paroxysmal atrial fibrillation; I25.10 Atherosclerotic heart disease of native coronary artery without angina pectoris; I11.0 Hypertensive heart disease with heart failure; I08.1 Rheumatic disorders of both mitral and tricuspid valves; E78.00 Pure hypercholesterolemia, unspecified; N40.0 Benign prostatic hyperplasia without lower urinary tract symptoms; M54.5 Low back pain; F41.9 Anxiety disorder, unspecified; E78.5 Hyperlipidemia, unspecified; Z87.891 Personal history of nicotine dependence; Z95.5 Presence of coronary angioplasty implant and graft; Z86.718 Personal history of other venous thrombosis and embolism; I25.2 Old myocardial infarction
CPT/HCPCS: 36415; 70450; 71045; 80048; 80053; 81000; 82805; 83605; 83880; 84145; 84484; 85025; 87040; 87077; 87088; 87186

== ENCOUNTER → 2020-12-07 | Outpatient (CLI) | payer MEDICARE, OTHER ==
[~2020-12-07] MED LIST changes: +AMOX250C PO
--- NOTE | 2020-12-07 15:07 | Diagnostic Imaging Report ---
INDICATION: Postop fixation of left hip. COMPARISON 11/18/2020. FINDINGS: Compression screw fixation of a left femoral neck fracture. Hardware is in good position without complication. There is good alignment of the femoral neck. Femoral head remains in good articulation with the acetabulum. IMPRESSION: Satisfactory appearing open reduction and fixation of left femoral neck fracture. Dictated by: Dictated on workstation # [id number]
== END ==
LOC: ORTHO 10:05
PROVIDERS: ATTEND Orthopaedic Surgery
DX: S72.092D Other fracture of head and neck of left femur, subsequent encounter for closed fracture with routine healing (principal); Z98.890 Other specified postprocedural states
CPT/HCPCS: 73502

== ENCOUNTER → 2020-12-21 | Outpatient (CLI) | payer MEDICARE, OTHER ==
--- NOTE | 2020-12-21 10:36 | Diagnostic Imaging Report ---
INDICATION: Follow-up hip fracture. COMPARISON: 12/07/2020 FINDINGS: 2 radiographic views of the left hip were obtained and again show postsurgical changes of previous ORIF of the left femoral neck. Surgical hardware remains appropriately positioned and is intact. Fracture line is not definitively identified. There is no evidence of periprosthetic fracture. No unexpected radiopaque foreign bodies are seen. Femoral acetabular joint space remains intact. IMPRESSION: 1. Expected postsurgical changes of the left hip as described above. Dictated by: Dictated on workstation # [id number]
== END ==
LOC: ORTHO 10:03
PROVIDERS: ATTEND Orthopaedic Surgery
DX: S72.092D Other fracture of head and neck of left femur, subsequent encounter for closed fracture with routine healing (principal); X58.XXXD Exposure to other specified factors, subsequent encounter
CPT/HCPCS: 73502

== ENCOUNTER → 2021-01-11 | Outpatient (CLI) | payer MEDICARE, OTHER ==
--- NOTE | 2021-01-11 10:57 | Diagnostic Imaging Report ---
INDICATION: Follow-up hip fracture. COMPARISON: 12/21/2020 FINDINGS: 2 radiographic views of the left hip were obtained and again show postsurgical changes of previous ORIF of the proximal left femur. Surgical hardware remains intact. There is no evidence of hardware loosening or failure. Fracture line remains obscured. No periprosthetic fracture is identified. No unexpected radiopaque foreign bodies are seen. Femoral acetabular joint space remains intact. IMPRESSION: 1. Stable postsurgical changes to the left hip as above. Dictated by: Dictated on workstation # [id number]
== END ==
LOC: ORTHO 09:38
PROVIDERS: ATTEND Orthopaedic Surgery
DX: S72.092D Other fracture of head and neck of left femur, subsequent encounter for closed fracture with routine healing (principal); X58.XXXD Exposure to other specified factors, subsequent encounter
CPT/HCPCS: 73502

== ENCOUNTER → 2021-02-08 | Outpatient (CLI) | payer MEDICARE, OTHER ==
--- NOTE | 2021-02-08 10:17 | Diagnostic Imaging Report ---
INDICATION: Follow-up hip fracture. COMPARISON: 01/11/2021 FINDINGS: 2 radiographic views of the left hip were obtained and again show postsurgical changes of previous ORIF of the proximal left femur. Surgical hardware remains intact. There is no evidence of hardware loosening or failure. Fracture line remains inconspicuous. No periprosthetic fracture is identified. No unexpected radiopaque foreign bodies are seen. Femoral acetabular joint space remains intact. IMPRESSION: 1. Stable postsurgical changes to the left hip as above. Dictated by: Dictated on workstation # [id number]
== END ==
LOC: ORTHO 09:20
PROVIDERS: ATTEND Orthopaedic Surgery
DX: S72.012D Unspecified intracapsular fracture of left femur, subsequent encounter for closed fracture with routine healing (principal); Z98.890 Other specified postprocedural states; X58.XXXD Exposure to other specified factors, subsequent encounter
CPT/HCPCS: 73502

== ENCOUNTER 2021-04-14 16:25 | Emergency (ER) | payer MEDICARE, OTHER ==
[~2021-04-14] VITALS: Ht 187 cm; Wt 67.0 kg
[~2021-04-14 16:25] MED LIST changes: +DIGO125T3 PO; -DOCU-238 PO; +DOCU-241 PO; +FURO40TA4 PO; +NITR0.4T42 SL
--- NOTE | 2021-04-14 16:40 | ED Back Pain ---
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 PT RATES PAIN 10/10. PT WAS SEEN IN ED ON MONDAY OF THIS WEEK. PT STATES UNABLE TO GET OUT OF RECLINER TODAY D/T PAIN Nursing Sepsis Screen: No Definite Risk Source of Information: Patient Exam Limitations: No Limitations (LEROY ALMAGUER APRN) History of Present Illness Date Seen by Provider: April 14, 2021 Time Seen by Provider: 16:21 Initial Comments This is a well-appearing 86-year-old male who presented to the ER via [facility] with complaints of acute on chronic low back pain. States that he had been moving a ladder a few days ago and injured his back. States that he was getting of his chair today and experienced 10/10 pain making it difficult to get out of his recliner. Has taken Tylenol a total of 3 tablets prior to arrival. States that this has helped some. Is still currently rating pain 10/10. Denies numbness, tingling, loss of sensation, changes in bowel or bladder. No fever, chills, cough, shortness of breath, nausea, vomiting, diarrhea, abdominal pain. 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) Allergies and Home Medications Allergies Coded Allergies: Bsbqtjk-Phg-Puz Reductase Inhibitor (Unverified Allergy, Unknown, 03/12/19) codeine (Unverified Adverse Reaction, Mild, Altered taste, 02/13/15) Uncoded Allergies: beta blockers (Adverse Reaction, Severe, severe bradycardia, 04/07/20) Home Medications Amoxicillin 250 Mg Capsule, 250 MG PO TID Prescribed by: PEE FRANKS on 11/27/20 1328 Apixaban 5 Mg Tablet, 5 MG PO BID, (Reported) Aspirin 81 Mg Tablet.dr, 81 MG PO 1200, (Reported) Digoxin 125 Mcg Tablet, 0.25 MG PO DAILY, (Reported) Diltiazem HCl 120 Mg Cap.er.24h, 120 MG PO DAILY, (Reported) Diltiazem HCl 120 Mg Cap.er.24h, 240 MG PO HS, (Reported) TAKES 2 (120MG) CAPS Docusate Sodium 100 Mg Capsule, 200 MG PO 1200,2100, (Reported) Methocarbamol 500 Mg Tablet, 500 MG PO Q6H Prescribed by: LEROY ALMAGUER on 04/14/211822 Multivit-Min/FA/Lycopen/Lutein 1 Each Tablet, 1 EACH PO 1200, (Reported) Patient Home Medication List Home Medication List Reviewed: Yes (LEROY ALMAGUER APRN) Review of Systems Constitutional: no symptoms reported EENTM: no symptoms reported Respiratory: no symptoms reported Cardiovascular: no symptoms reported Gastrointestinal: no symptoms reported Genitourinary: no symptoms reported Musculoskeletal: see HPI Skin: no symptoms reported Psychiatric/Neurological: No Symptoms Reported (LEROY ALMAGUER APRN) Past Fyvsfqg-Icvood-Mkbguv Hx Patient Social History Alcohol Use: Denies Use Number of Drinks Today: GG Alcohol Beverage of Choice: Whiskey Smoking Status: Former Smoker Type Used: Cigarettes Former Smoker, Quit: Dec 11, 1977 Recent Infectious Disease Expo: No Recent Hopitalizations: No (LEROY ALMAGUER APRN) Immunizations Up To Date Tetanus Booster (TDap): Unknown PED Vaccines UTD: No Date of Pneumonia Vaccine: Jul 29, 2020 Date of Influenza Vaccine: Aug 20, 2020 (LEROY ALMAGUER APRN) Seasonal Allergies Seasonal Allergies: No (LEROY ALMAGUER APRN) Past Medical History Surgeries: Yes (Cardiac stent x 2, L HIP, BOWEL RESECTION) Bowel Surgery, Coronary Stent, Orthopedic Respiratory: No Cardiac: Yes (Cardiac stent X2 ) Atrial Fibrillation, Deep Vein Thrombosis, Heart Attack, High Cholesterol, Hypertension Neurological: Yes Stroke, Vertigo Reproductive Disorders: No Genitourinary: Yes Benign Prostatic Hyperpl Gastrointestinal: No Polyps Musculoskeletal: Yes (FX L WRIST) Chronic Back Pain Endocrine: No HEENT: No Cancer: No Psychosocial: Yes Anxiety Integumentary: No Blood Disorders: No Adverse Reaction/Blood Tranf: No (LEROY ALMAGUER APRN) Family Medical History Patient reports no known family medical history. No Pertinent Family Hx (LEROY ALMAGUER APRN) Physical Exam Vital Signs Vital Signs - First Documented 04/14/21 16:25 Temp 36.2 Pulse 89 Resp 18 B/P (MAP) 140/84 (102) Pulse Ox 99 (GLENNY ABREU MD) Vital Signs Capillary Refill : Less Than 3 Seconds (LEROY ALMAGUER APRN) Height, Weight, BMI Height: 6'2.00" Weight: 163lbs. 2.0oz. 73.958861kh; 19.00 BMI Method:Stated General Appearance: No Apparent Distress, WD/WN HEENT: PERRL/EOMI, Normal ENT Inspection Neck: Full Range of Motion, Normal Inspection, Non Tender Cardiovascular: No Edema, Normal Peripheral Pulses, Systolic Murmur, Irregularly Irregular Respiratory: Lungs Clear, Normal Breath Sounds, No Accessory Muscle Use, No Respiratory Distress Gastrointestinal: Normal Bowel Sounds, No Organomegaly, No Pulsatile Mass, Non Tender, Soft Back: Normal Inspection, No Vertebral Tenderness, Other (Paraspinous muscle tenderness lumbar region, neg SLT) Extremity: Normal Capillary Refill, Normal Inspection, Normal Range of Motion Neurologic/Psychiatric: Alert, Oriented x3, No Motor/Sensory Deficits, Normal Mood/Affect Skin: Normal Color, Warm/Dry (LEROY ALMAGUER APRN) Progress/Results/Core Measures Results/Orders Vital Signs/I&O 04/14/21 04/14/21 16:25 18:33 Temp 36.2 36.2 Pulse 89 89 Resp 18 18 B/P (MAP) 140/84 (102) 140/84 (102) Pulse Ox 99 99 (GLENNY ABREU MD) Blood Pressure Mean: 102 Progress Progress Note : Progress Note Patient examined and in no acute distress. He is sitting up joking and talking with staff. Had point tenderness over his paraspinous muscles in the lumbar region. We will try oral Robaxin for muscle relaxant and see if this helps. Approximately 45 min-1 hour after receiving medication he was assisted with ambulating with a walker, states that he was beginning to feel better and his pain was only on the left side. Reviewed discharge plan of care and he is agreeable with plan. Provided walker to go home with. Discussed that he can follow-up with his primary care provider if his symptoms persist. He can always return for any new, concerning, or worsening symptoms. Verbalized understanding. (LEROY ALMGAUER APRN) Progress Note : Progress Note I was personally present in the emergency department during the care of this patient but did not directly participate in this patient's care. (GLENNY ABREU MD) Departure Impression Primary Impression: Acute exacerbation of chronic low back pain Disposition: HOME, SELF-CARE Condition: Improved Departure-Patient Inst. Decision time for Depature: 18:24 (LEROY ALMAGUER APRN) Referrals: RUBY PAYTON MD (PCP/Family) Primary Care Physician Patient Instructions: Back Muscle Strain (DC) Add. Discharge Instructions: Plan: 1. Discharge home. 2. Use ice/heat 20 minutes at a time for pain. Apply 4-6x per day as needed. 3. Avoid bending, twisting, pulling so you do not strain your back even more. 4. May use Tylenol with muscle relaxer as directed for severe pain. 5. Follow up with your doctor if your symptoms persist. 6. Return for any new or worsening symptoms. All discharge instructions reviewed with patient and/or family. Voiced understanding. Scripts Methocarbamol (Methocarbamol) 500 Mg Tablet 500 MG PO Q6H for Back Pain, #20 TAB 0 Refills Prov: LEROY ALMAGUER APRN 04/14/21 LEROY ALMAGUER APRN April 14, 2021 16:40 GLENNY ABREU MD April 16, 2021 06:22
[2021-04-14] MEDS ORDERED: METHOCARBAMOL 750 MG (ROBAXIN) TAB PO ONE (16:45)
[2021-04-14] MEDS ORDERED: METH-731 PO (18:23)
[2021-04-14 18:33] VITALS: BP 140/84
== END 2021-04-14 18:40 | disposition home or self-care (01) ==
LOC: EDUNIT# 16:25 → ER 16:26
DX: G89.21 Chronic pain due to trauma (principal); M54.5 Low back pain; I11.0 Hypertensive heart disease with heart failure; I50.9 Heart failure, unspecified; I48.91 Unspecified atrial fibrillation; Z95.5 Presence of coronary angioplasty implant and graft; Z87.891 Personal history of nicotine dependence; Z79.01 Long term (current) use of anticoagulants; Z79.899 Other long term (current) drug therapy; Z79.82 Long term (current) use of aspirin; X50.0XXA Overexertion from strenuous movement or load, initial encounter
CPT/HCPCS: 99283

== ENCOUNTER 2021-05-17 13:40 | Inpatient (IN) | payer MEDICARE, OTHER ==
[~2021-05-17] VITALS: Ht 188 cm; Wt 67.1 kg
[~2021-05-17 13:40] MED LIST changes: -DOCU-241 PO; +DOCU-26 PO; +METH-731 PO
--- NOTE | 2021-05-17 13:54 | ED Lower Extremity ---
General Chief Complaint: Lower Extremity Stated Complaint: L LEG INJURY Source: patient Exam Limitations: no limitations History of Present Illness Date Seen by Provider: May 17, 2021 Time Seen by Provider: 13:51 Initial Comments To ER with reports of a left leg injury after a fall. He lives at home. He called EMS because of left distal thigh pain. EMS gave 100 mcg of fentanyl which reduced his pain from an "30" down to a 10. He requested EMS bring him to [facility]". Onset: this morning Severity: moderate Pain/Injury Location: left thigh Method of Injury: fell Modifying Factors: Worse With Movement Allergies and Home Medications Allergies Coded Allergies: Iolqrzo-Ngo-Adm Reductase Inhibitor (Unverified Allergy, Unknown, 03/12/19) codeine (Unverified Adverse Reaction, Mild, Altered taste, 02/13/15) Uncoded Allergies: beta blockers (Adverse Reaction, Severe, severe bradycardia, 04/07/20) Home Medications Amoxicillin 250 Mg Capsule, 250 MG PO TID Prescribed by: PEE FRANKS on 11/27/20 1328 Apixaban 5 Mg Tablet, 5 MG PO BID, (Reported) Aspirin 81 Mg Tablet.dr, 81 MG PO 1200, (Reported) Digoxin 125 Mcg Tablet, 0.25 MG PO DAILY, (Reported) Diltiazem HCl 120 Mg Cap.er.24h, 120 MG PO DAILY, (Reported) Diltiazem HCl 120 Mg Cap.er.24h, 240 MG PO HS, (Reported) TAKES 2 (120MG) CAPS Docusate Sodium 100 Mg Capsule, 200 MG PO 1200,2100, (Reported) Methocarbamol 500 Mg Tablet, 500 MG PO Q6H Prescribed by: LEROY ALMAGUER on 04/14/21 1823 Multivit-Min/FA/Lycopen/Lutein 1 Each Tablet, 1 EACH PO 1200, (Reported) Patient Home Medication List Home Medication List Reviewed: Yes Review of Systems Constitutional: see HPI EENTM: see HPI Respiratory: no symptoms reported Cardiovascular: no symptoms reported Genitourinary: no symptoms reported Musculoskeletal: see HPI Skin: no symptoms reported Psychiatric/Neurological: No Symptoms Reported Past Azrhvzj-Rdywzv-Zvtysb Hx Patient Social History Alcohol Use: Denies Use Number of Drinks Today: GG Alcohol Beverage of Choice: Whiskey Smoking Status: Former Smoker Type Used: Cigarettes Former Smoker, Quit: Dec 11, 1977 Recent Hopitalizations: No Immunizations Up To Date Tetanus Booster (TDap): Unknown PED Vaccines UTD: No Date of Pneumonia Vaccine: Jul 29, 2020 Date of Influenza Vaccine: Aug 20, 2020 Seasonal Allergies Seasonal Allergies: No Past Medical History Surgeries: Yes (Cardiac stent x 2, L HIP, BOWEL RESECTION) Bowel Surgery, Coronary Stent, Orthopedic Respiratory: No Cardiac: Yes (Cardiac stent X2 ) Atrial Fibrillation, Deep Vein Thrombosis, Heart Attack, High Cholesterol, Hypertension Neurological: Yes Stroke, Vertigo Reproductive Disorders: No Genitourinary: Yes Benign Prostatic Hyperpl Gastrointestinal: No Polyps Musculoskeletal: Yes (FX L WRIST) Chronic Back Pain Endocrine: No HEENT: No Cancer: No Psychosocial: Yes Anxiety Integumentary: No Blood Disorders: No Adverse Reaction/Blood Tranf: No Family Medical History Patient reports no known family medical history. No Pertinent Family Hx Physical Exam Vital Signs Vital Signs - First Documented 05/17/21 13:49 Temp 36.9 Pulse 121 Resp 18 B/P (MAP) 115/84 (94) Pulse Ox 96 Capillary Refill : Height, Weight, BMI Height: 6'2.00" Weight: 163lbs. 2.0oz. 73.212597il; 19.00 BMI Method:Stated General Appearance: WD/WN, no apparent distress Respiratory: no respiratory distress, no accessory muscle use Hips: bilateral hip non-tender, bilateral hip normal inspection, bilateral hip normal range of motion Legs: left leg pain, left leg soft tissue tenderness Knees: bilateral knee non-tender, bilateral knee normal inspection, bilateral knee normal range of motion Ankles: bilateral ankle non-tender, bilateral ankle normal inspection, bilateral ankle normal range of motion, bilateral ankle swelling (There is 2+ pitting edema bilateral lower extremities for which he states he was recently started on Lasix.) Feet: bilateral foot non-tender, bilateral foot normal inspection, bilateral foot normal range of motion Neurologic/Psychiatric: alert, normal mood/affect, oriented x 3 Skin: normal color, warm/dry Progress/Results/Core Measures Results/Orders Lab Results Laboratory Tests Test 05/17/21 14:16 Range/Units White Blood Count 8.5 4.3-11.0 10^3/uL Red Blood Count 3.91 L 4.30-5.52 10^6/uL Hemoglobin 13.0 L 13.3-17.7 g/dL Hematocrit 38 L 40-54 % Mean Corpuscular Volume 98 80-99 fL Mean Corpuscular Hemoglobin 33 25-34 pg Mean Corpuscular Hemoglobin Concent 34 32-36 g/dL Red Cell Distribution Width 15.8 H 10.0-14.5 % Platelet Count 154 130-400 10^3/uL Mean Platelet Volume 13.2 H 9.0-12.2 fL Immature Granulocyte % (Auto) 1 % Neutrophils (%) (Auto) 82 H 42-75 % Lymphocytes (%) (Auto) 9 L 12-44 % Monocytes (%) (Auto) 8 0-12 % Eosinophils (%) (Auto) 0 0-10 % Basophils (%) (Auto) 0 0-10 % Neutrophils # (Auto) 6.9 1.8-7.8 10^3/uL Lymphocytes # (Auto) 0.8 L 1.0-4.0 10^3/uL Monocytes # (Auto) 0.7 0.0-1.0 10^3/uL Eosinophils # (Auto) 0.0 0.0-0.3 10^3/uL Basophils # (Auto) 0.0 0.0-0.1 10^3/uL Immature Granulocyte # (Auto) 0.1 0.0-0.1 10^3/uL Percent Immature Platelet Fraction 15.4 H 0.0-7.6 % Sodium Level 138 135-145 MMOL/L Potassium Level 3.6 3.6-5.0 MMOL/L Chloride Level 101 98-107 MMOL/L Carbon Dioxide Level 22 21-32 MMOL/L Anion Gap 15 H 5-14 MMOL/L Blood Urea Nitrogen 18 7-18 MG/DL Creatinine 1.13 0.60-1.30 MG/DL Estimat Glomerular Filtration Rate > 60 BUN/Creatinine Ratio 16 Glucose Level 140 H 70-105 MG/DL Calcium Level 10.0 8.5-10.1 MG/DL Corrected Calcium 10.2 H 8.5-10.1 MG/DL Total Bilirubin 1.8 H 0.1-1.0 MG/DL Aspartate Amino Transf (AST/SGOT) 25 5-34 U/L Alanine Aminotransferase (ALT/SGPT) 16 0-55 U/L Alkaline Phosphatase 73 40-136 U/L B-Type Natriuretic Peptide 265.6 H <100.0 PG/ML Total Protein 7.0 6.4-8.2 GM/DL Albumin 3.7 3.2-4.5 GM/DL My Orders Orders - LANDEN LUCAS APRN Cbc With Automated Diff (05/17/21 13:48) Comprehensive Metabolic Panel (05/17/21 13:48) Femur, Left, 2 Views (05/17/21 13:48) Fentanyl Inj (Sublimaze Injection) (05/17/21 14:00) Ct Extremity Lower Left Wo (05/17/21 14:18) BNP (05/17/21 15:10) Fentanyl Inj (Sublimaze Injection) (05/17/21 15:45) Ct Lumbar Spine Wo (05/17/21 15:48) Pelvis (05/17/21 15:48) Lidocaine 1% Inj 20 Ml (Xylocaine 1% Inj (05/17/21 16:00) Triamcinolone Acetonide Im (Kenalog-40) (05/17/21 16:00) Morphine Injection (Morphine Injection (05/17/21 16:28) Sodium 2g (2000 Mg) (05/17/21 Dinner) Medications Given in ED Current Medications Medications Dose Ordered Sig/Adelfo Route Start Time Stop Time Status Last Admin Dose Admin Fentanyl Citrate 50 mcg ONCE ONCE IVP 05/17/21 14:00 05/17/21 14:01 DC 05/17/21 14:11 50 MCG Fentanyl Citrate 75 mcg ONCE ONCE IVP 05/17/21 15:45 05/17/21 15:46 DC 05/17/21 15:49 75 MCG Lidocaine HCl 20 ml ONCE ONCE INJ 05/17/21 16:00 05/17/21 16:01 DC 05/17/21 16:00 20 ML Triamcinolone Acetonide 40 mg ONCE ONCE IA 05/17/21 16:00 05/17/21 16:01 DC 05/17/21 16:24 40 MG Vital Signs/I&O 05/17/21 13:49 Temp 36.9 Pulse 121 Resp 18 B/P (MAP) 115/84 (94) Pulse Ox 96 Diagnostic Imaging Diagonstic Imaging: CT Comments NAME: TAJ ELKINS [facility] REC#: [id number] PT STATUS: REG ER : 1935 PHYSICIAN: LANDEN LUCAS APRN ADMIT DATE: 05/17/21/ER Draft Date of Exam:05/17/21 CT LUMBAR SPINE WO PROCEDURE: CT lumbar spine without contrast. TECHNIQUE: Multiple contiguous axial images were obtained through the lumbar spine without the use of intravenous contrast. Sagittal and coronal reformations were then performed. Auto Exposure Controls were utilized during the CT exam to meet ALARA standards for radiation dose reduction. INDICATION: Back pain. COMPARISON: 01/04/2015. FINDINGS: There has been interval performance of kyphoplasty at L2, L3, and L4. There is mild increase in concavity of the superior endplate of L5. Note is also made of mild depression of the superior endplate of T12. There is no definite associated paravertebral hematoma although there is mild right pleural fluid present. Note is made of urinary bladder distention. IMPRESSION: Treated fractures at L2, L3, and L4 with mild superior endplate compression deformities at T12 and L5 of indeterminate age. These are new since 01/04/2015 and consideration could be given to MRI to evaluate for marrow edema or hemorrhage. Dictated on workstation # [id number] Dict: 05/17/21 1607 Trans: 05/17/21 1611 [id number] Interpreted by: SRINI CHEN MD Electronically signed by: Departure Communication (Admissions) 1552-he reports that his pain is still 10 out of 10 despite 150 mcg of fentanyl in total so far. I do not find any fracture. He states the worst of his pain is in his knee. There is no palpable effusion or visible abnormality of the extremity. I will try an injection of lidocaine with triamcinolone into the left knee due to the severe arthritis. 1623-reports that the 200 mcg in total of fentanyl that he is received so far "has not done shift". I did do an injection under sterile technique to the left knee. 1 cm superior and 1 cm lateral to the superior and lateral border of the patella. He states that he has had to have this done on the right side and it has helped quite a bit. We used a total of 5 mL of 1% lidocaine without epinephrine and 40 mg of triamcinolone. 1651-he states that his knee pain is quite a bit improved after the knee injection. However, he still has such pain throughout the left leg that he is unable to get out of bed. He would like a chocolate malt because he thinks it might give him some energy. Discussed with Dr. Tran, will admit, consult inpatient rehab. I will update his Aileen at [phone] Impression Primary Impression: Left knee pain Additional Impressions: Generalized weakness intractable left leg pain Disposition: ADMITTED INPATIENT Condition: Stable Admissions Decision to Admit Reason: Admit from ER (General) Decision to Admit/Date: May 17, 2021 Time/Decision to Admit Time: 16:53 Departure-Patient Inst. Referrals: RUBY PAYTON MD (PCP/Family) Primary Care Physician LANDEN LUCAS APRN May 17, 2021 13:54
[2021-05-17] MEDS ORDERED: fentaNYL INJ 100 MCG/2 ML AMP IVP ONE ×2 (14:00→15:45)
[2021-05-17 14:33] LABS: BASOPHILS % (AUTO) 0 % (0-10); EOSINOPHILS % (AUTO) 0 % (0-10); MONOCYTES % (AUTO) 8 % (0-12)
[2021-05-17 14:35] LABS: HEMATOCRIT 38 % (40-54); LYMPHOCYTES # (AUTO) 0.8 10^3/uL (1.0-4.0); LYMPHOCYTES % (AUTO) 9 % (12-44); MEAN CORPUSCULAR HEMOGLOBIN 33 pg (25-34); MEAN CORPUSCULAR HGB CONC 34 g/dL (32-36); MEAN CORPUSCULAR VOLUME 98 fL (80-99); MEAN PLATELET VOLUME 13.2 fL (9.0-12.2); MONOCYTES # (AUTO) 0.7 10^3/uL (0.0-1.0); NEUTROPHILS # (AUTO) 6.9 10^3/uL (1.8-7.8); NEUTROPHILS % (AUTO) 82 % (42-75); PLATELET COUNT 154 10^3/uL (130-400); WHITE BLOOD COUNT 8.5 10^3/uL (4.3-11.0)
--- NOTE | 2021-05-17 14:38 | Diagnostic Imaging Report ---
INDICATION: Fall. TIME OF EXAM: 02:05 p.m. TECHNIQUE: Frontal and lateral views of the left femur were obtained. FINDINGS: A plate and compression screws transfix the proximal left femur. Alignment is anatomic. Femoroacetabular alignment is normal. Remainder of the left femur is intact. No acute fracture is seen. There is generalized demineralization. IMPRESSION: Postop changes to the left hip. No acute fracture is detected. Dictated by: Dictated on workstation # [id number]
[2021-05-17 14:41] LABS: ALBUMIN 3.7 GM/DL (3.2-4.5)
[2021-05-17 14:42] LABS: CHLORIDE 101 MMOL/L (98-107); POTASSIUM 3.6 MMOL/L (3.6-5.0); SODIUM 138 MMOL/L (135-145)
[2021-05-17 14:44] LABS: GLUCOSE 140 MG/DL (70-105)
[2021-05-17 14:45] LABS: CARBON DIOXIDE 22 MMOL/L (21-32)
[2021-05-17 14:46] LABS: BILIRUBIN,TOTAL 1.8 MG/DL (0.1-1.0)
[2021-05-17 14:47] LABS: ALKALINE PHOSPHATASE 73 U/L (40-136); CREATININE SERUM 1.13 MG/DL (0.60-1.30); GFR ESTIMATED > 60
[2021-05-17 14:48] LABS: BUN/CREATININE RATIO 16
[2021-05-17 14:50] LABS: ALANINE AMINOTRANSFERASE 16 U/L (0-55)
--- NOTE | 2021-05-17 14:56 | Diagnostic Imaging Report ---
Exam: CT left knee without contrast. Date: May 17, 2021. Indication: 86-year-old male, fall this morning. Distal femur and knee pain. Comparison: Left femur radiographs May 17, 2021. Left knee radiographs November 18, 2020. Technique: Axial CT images of the left knee were obtained without contrast. Coronal and sagittal reformats were obtained and provided. All CT scans use one or more of the following dose optimizing techniques: automated exposure control, MA and/or KvP adjustment based on a patient size and exam type, or iterative reconstruction. . Findings: There is severe medial and patellofemoral compartment joint space loss. There is mild lateral compartment joint space loss. There is chondrocalcinosis. There is no large knee joint effusion. There is no acute fracture. There is no aggressive bone lesion. There are atherosclerotic calcifications. There is nonspecific subcutaneous edema at the level of the imaged tibia and fibula. Impression: 1. 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 2. Chondrocalcinosis which has multiple associations including advanced age and calcium pyrophosphate dihydrate deposition disease. 3. No large knee joint effusion. 4. No acute fracture. Dictated by: Dictated on workstation # [id number]
[2021-05-17] MEDS ORDERED: LIDOCAINE 1% INJ 20 ML 20 ML VIAL INJ ONE (16:00)
[2021-05-17] MEDS ORDERED: TRIAMCINOLONE ACET (KENALOG-40) 40 MG/ML 1 ML VIAL IA ONE (16:00)
--- NOTE | 2021-05-17 16:11 | Diagnostic Imaging Report ---
PROCEDURE: CT lumbar spine without contrast. TECHNIQUE: Multiple contiguous axial images were obtained through the lumbar spine without the use of intravenous contrast. Sagittal and coronal reformations were then performed. Auto Exposure Controls were utilized during the CT exam to meet ALARA standards for radiation dose reduction. INDICATION: Back pain. COMPARISON: 01/04/2015. FINDINGS: There has been interval performance of kyphoplasty at L2, L3, and L4. There is mild increase in concavity of the superior endplate of L5. Note is also made of mild depression of the superior endplate of T12. There is no definite associated paravertebral hematoma although there is mild right pleural fluid present. Note is made of urinary bladder distention. IMPRESSION: Treated fractures at L2, L3, and L4 with mild superior endplate compression deformities at T12 and L5 of indeterminate age. These are new since 01/04/2015 and consideration could be given to MRI to evaluate for marrow edema or hemorrhage. Dictated by: Dictated on workstation # [id number]
--- NOTE | 2021-05-17 16:25 | Diagnostic Imaging Report ---
INDICATION: Pelvic pain. TECHNIQUE: AP pelvis obtained at 04:07 p.m. COMPARISON: Comparison made to 02/13/2015. FINDINGS: Hardware in the left proximal femur is noted. There is no acute fracture or acute bony abnormality. There is osteopenia. Patient has had previous lower lumbar kyphoplasty. IMPRESSION: Chronic findings as above with no acute abnormality. Dictated by: Dictated on workstation # [id number]
[2021-05-17] MEDS ORDERED: morphine INJ 10 MG/ML 1ML (SYR OR VIAL) IVP STA (16:28)
[2021-05-17] MEDS ORDERED: ONDANSETRON 4 MG/2 ML (SDV) Z0FRAN IV PRN (17:45)
[2021-05-17] MEDS ORDERED: CATHETER FLUSH 10 ML SYR IV PRN (17:45)
[2021-05-17 17:49] VITALS: BP 115/83
[2021-05-17 19:38] VITALS: BP 126/65
[2021-05-17] MEDS: DOCUSATE SODIUM 100 MG (COLACE) CAP PO SCH ×2 (20:22→20:26)
[2021-05-17] MEDS: CATHETER FLUSH 10 ML SYR IV SCH (20:23)
[2021-05-17 23:46] VITALS: BP 131/77
[2021-05-18 03:28] VITALS: BP 142/80
[2021-05-18] MEDS: HYDROcodone/APAP 5 MG/325 MG (LORTAB) TAB PO PRN ×4 (03:52→19:48)
[2021-05-18] MEDS: CATHETER FLUSH 10 ML SYR IV SCH ×3 (05:17→19:47)
[2021-05-18 08:37] VITALS: BP 138/76
[2021-05-18] MEDS: DOCUSATE SODIUM 100 MG (COLACE) CAP PO SCH ×2 (08:48→19:47)
[2021-05-18] MEDS ORDERED: TRAM50TA3 PO (08:49)
[2021-05-18] MEDS ORDERED: FURO80TA3 PO (08:49)
[2021-05-18] MEDS ORDERED: ACET-2267 PO (08:49)
--- NOTE | 2021-05-18 09:17 | Physical Therapy Progress Note ---
Therapy Progress Note Patient transferring to ICU due to elevated HR. PT will require new orders. JONA SAUNDERS PT May 18, 2021 09:17
[2021-05-18] MEDS ORDERED: FUROSEMIDE 40 MG (LASIX) TAB PO PRN (09:45)
[2021-05-18] MEDS ORDERED: ACETAMINOPHEN 500 MG TAB (TYLENOL) PO PRN (09:45)
--- NOTE | 2021-05-18 10:20 | History & Physical-Hospitalist ---
History of Present Illness HPI/Chief Complaint Pt is an 86yoCM who presented to the ER due to leg pain. He reports that he fell yesterday and had 30/10 pain causing him to present to the ER. He had a femur X- ray, lower extremity and lumbar spine CT, and pelvis x ray and none revealed any fractures or acute abnormalities. He was given multiple doses of fentanyl in the ER without relief and was admitted for observation for intractable pain. Overnight he went in a- fib with RVR. Despite oral diltiazem his heart rate continued in the 160-170s. He was transferred to [facility] for this for possible cardizem gtt. This morning he is mostly concerned about not taking lasix unless he get a catheter. We discussed the risk of catheters and he understands and still requests one due to pain. He also began talking about not wanting to take any laxatives. He does not complain of any pain until asked and then states he is in 10.5/10 pain despite appearing quite comfortable. He told me "don't give me kid medicine. Give me a big pain shot." I informed him that so long as he is able to take oral medications that would be the preferred route. He then told me he can't take pills because he chokes on them. He is unable to tell me when this issue started and says he takes pills at home just fine. Finally he was willing to discuss his heart rate with him. He denies any symptoms or palpitations. He has no chest pain or shortness of breath. He does have significant lower extremity edema. Date Seen 05/18/21 Time Seen by a Provider: 10:20 Attending Physician Ion Andersen MD PCP Elieser Peraza MD Referring Physician Date of Admission May 17, 2021 at 16:49 Home Medications & Allergies Home Medications Reviewed patient Home Medication Reconciliation performed by pharmacy medication reconciliations can technician and/or nursing. Patients Allergies have been reviewed. Allergies Allergies Coded Allergies Ttirhir-Yau-Bix Reductase Inhibitor (Unverified Allergy, Unknown, 03/12/19) codeine (Unverified Adverse Reaction, Mild, Altered taste, 02/13/15) Uncoded Allergies beta blockers ( Adverse Reaction, Severe, severe bradycardia, 04/07/20) Past [place]-Wdcbfv-Pkbtkq Hx Patient Social History Tobacco Use?: No Tobacco type used: Cigarettes Smoking Status: Former Smoker Use of E-Cig and/or Vaping dev: No Substance use?: No Alcohol Use?: Yes Alcohol Frequency: Rarely Pt feels they are or have been: No Immunizations Up To Date Date of Influenza Vaccine: Aug 20, 2020 Tetanus Booster (TDap): Unknown Hepatitis A: No Hepatitis B: No PED Vaccines UTD: No Date of Pneumonia Vaccine: Jul 29, 2020 Seasonal Allergies Seasonal Allergies: No Current Status Advance Directives: Unable to obtain Communicates: Verbally Primary Language: Irish Preferred Spoken Language: Irish Is interpretation needed?: No Sensory deficits: Vision impairment Implanted or Applied Medical D: Stents Past Medical History Surgeries: Bowel Surgery, Coronary Stent, Orthopedic Atrial Fibrillation, Deep Vein Thrombosis, Heart Attack, High Cholesterol, Hypertension Stroke, Vertigo Benign Prostatic Hyperpl Polyps Chronic Back Pain Anxiety Blood Disorders: No Adverse Reaction/Blood Tranf: No Family Medical History Reviewed Nursing Family Hx Patient reports no known family medical history. No Pertinent Family Hx Review of Systems Constitutional: No chills, No fever EENTM: no symptoms reported Respiratory: No cough, No short of breath Cardiovascular: No chest pain; edema, Hx of Intervention; No palpitations, No syncope Gastrointestinal: No abdominal pain, No constipation, No nausea, No vomiting Genitourinary: no symptoms reported Musculoskeletal: see HPI Skin: no symptoms reported Psychiatric/Neurological: No Symptoms Reported Physical Exam Physical Exam Vital Signs Vital Signs - First Documented 05/17/21 05/17/21 13:49 17:44 Temp 36.9 Pulse 121 Resp 18 B/P (MAP) 115/84 (94) Pulse Ox 96 O2 Delivery Room Air Capillary Refill : Less Than 3 Seconds Height, Weight, BMI Height: 6'2.00" Weight: 163lbs. 2.0oz. 73.561762xv; 120.16 BMI Method:Stated General Appearance: No Apparent Distress, WD/WN HEENT: PERRL/EOMI, Moist Mucous Membranes Neck: Normal Inspection, Supple Respiratory: Lungs Clear, No Accessory Muscle Use, No Respiratory Distress Cardiovascular: No JVD, No Murmur, Irregularly Irregular (normal rate- was mostly in 60s while I was in room) Gastrointestinal: Normal Bowel Sounds, Non Tender, Soft Extremity: Normal Capillary Refill, Pedal Edema, Swelling Neurologic/Psychiatric: Alert, Oriented x3, Normal Mood/Affect Results Results/Procedures Labs Laboratory Tests 05/17/21 14:16 Patient resulted labs reviewed. Imaging: Reviewed Imaging Report [facility] [place] [place] NAME: TAJ ELKINS [facility] REC#: [id number] PT STATUS: REG ER : 1935 PHYSICIAN: LANDEN LUCAS APRN ADMIT DATE: 05/17/21/ER Signed Date of Exam:05/17/21 FEMUR, LEFT, 2 VIEWS INDICATION: Fall. TIME OF EXAM: 02:05 p.m. TECHNIQUE: Frontal and lateral views of the left femur were obtained. FINDINGS: A plate and compression screws transfix the proximal left femur. Alignment is anatomic. Femoroacetabular alignment is normal. Remainder of the left femur is intact. No acute fracture is seen. There is generalized demineralization. IMPRESSION: Postop changes to the left hip. No acute fracture is detected. Dictated by: Dictated on workstation # [id number] Dict: 05/17/21 1434 Trans: 05/17/21 1557 [id number] Interpreted by: YOLA JONES MD Electronically signed by: YOLA JONES MD 05/17/21 1557 [facility] [place] NAME: TAJ ELKINS [facility] REC#: [id number] PT STATUS: REG ER : 1935 PHYSICIAN: LANDEN LUCAS APRN ADMIT DATE: 05/17/21/ER Signed Date of Exam:05/17/21 CT EXTREMITY LOWER LEFT WO Exam: CT left knee without contrast. Date: May 17, 2021. Indication: 86-year-old male, fall this morning. Distal femur and knee pain. Comparison: Left femur radiographs May 17, 2021. Left knee radiographs November 18, 2020. Technique: Axial CT images of the left knee were obtained without contrast. Coronal and sagittal reformats were obtained and provided. All CT scans use one or more of the following dose optimizing techniques: automated exposure control, MA and/or KvP adjustment based on a patient size and exam type, or iterative reconstruction. . Findings: There is severe medial and patellofemoral compartment joint space loss. There is mild lateral compartment joint space loss. There is chondrocalcinosis. There is no large knee joint effusion. There is no acute fracture. There is no aggressive bone lesion. There are atherosclerotic calcifications. There is nonspecific subcutaneous edema at the level of the imaged tibia and fibula. Impression: 1. 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 2. Chondrocalcinosis which has multiple associations including advanced age and calcium pyrophosphate dihydrate deposition disease. 3. No large knee joint effusion. 4. No acute fracture. Dictated by: Dictated on workstation # [id number] Dict: 05/17/21 1446 Trans: 05/17/211654 [facility] [id number] Interpreted by: ALICIA ANTHONY MD Electronically signed by: ALICIA ANTHONY MD 05/17/211654 [facility] [place] [place] NAME: TAJ ELKINS [facility] REC#: [id number] PT STATUS: REG ER : 1935 PHYSICIAN: LANDEN LUCAS APRN ADMIT DATE: 05/17/21/ER Signed Date of Exam:05/17/21 CT LUMBAR SPINE WO PROCEDURE: CT lumbar spine without contrast. TECHNIQUE: Multiple contiguous axial images were obtained through the lumbar spine without the use of intravenous contrast. Sagittal and coronal reformations were then performed. Auto Exposure Controls were utilized during the CT exam to meet ALARA standards for radiation dose reduction. INDICATION: Back pain. COMPARISON: 01/04/2015. FINDINGS: There has been interval performance of kyphoplasty at L2, L3, and L4. There is mild increase in concavity of the superior endplate of L5. Note is also made of mild depression of the superior endplate of T12. There is no definite associated paravertebral hematoma although there is mild right pleural fluid present. Note is made of urinary bladder distention. IMPRESSION: Treated fractures at L2, L3, and L4 with mild superior endplate compression deformities at T12 and L5 of indeterminate age. These are new since 01/04/2015 and consideration could be given to MRI to evaluate for marrow edema or hemorrhage. Dictated by: Dictated on workstation # [id number] Dict: 05/17/21 1607 Trans: 05/17/21 1658 [id number] Interpreted by: SRINI CHEN MD Electronically signed by: RSINI CHEN MD 05/17/218 [facility] [place], [place] NAME: TAJ ELKINS [facility] REC#: [id number] PT STATUS: REG ER : 1935 PHYSICIAN: LANDEN LUCAS [employer] ADMIT DATE: 05/17/21/ER Signed Date of Exam:05/17/21 PELVIS INDICATION: Pelvic pain. TECHNIQUE: AP pelvis obtained at 04:07 p.m. COMPARISON: Comparison made to 02/13/2015. FINDINGS: Hardware in the left proximal femur is noted. There is no acute fracture or acute bony abnormality. There is osteopenia. Patient has had previous lower lumbar kyphoplasty. IMPRESSION: Chronic findings as above with no acute abnormality. Dictated by: Dictated on workstation # [id number] Dict: 05/17/21 1619 Trans: 05/17/21 1650 [id number] Interpreted by: AWAIS YO MD Electronically signed by: AWAIS YO MD 05/17/21 1650 Assessment/Plan Admission Diagnosis Intractable leg pain Admission Status: Observation Assessment and Plan A-fib with RVR Noncompliance Long standing a fib Discussed with SANDY Banda for Dr Winters who reports long history of noncompliance with patient Transferred to ICU for cardizem gtt but shortly after pt became rate controlled Cardiology consulted, appreciate recs Continue home meds Monitor on telemetry Intractable leg pain Falls Debility Continue hydrocodone Avoid IV pain medicine if able PT/OT IRU eval Dysphagia Pt reported Speech bedside dysphagia eval requested DVT ppx: Already on ION Zambrano MD May 18, 2021 10:20
--- NOTE | 2021-05-18 10:46 | Consultation-Cardiology ---
HPI-Cardiology Cardiology Consultation: Date of Consultation 05/18/21 Time Seen by a Provider: 10:30 Date of Admission 05-17-21 Attending Physician Halle Andersen MD Admitting Physician Elieser Peraza MD Consulting Physician Alvina Winters MD HPI: Chief Complaint: A-fib with RVR Mr. Elkins is an 86 yr old male admitted to 417 from the ED following a non- syncopal fall at home with c/o left thigh and knee pain. He was transferred to [facility] from the 4th floor d/t converting to a-fib with RVR. He is currently a-fib with a controlled rate. He has chronic SOB, but feels it maybe somewhat worse than before. He reports bilat LE swelling, but feels it is about the same as it always is. He reports he is supposed to be taking "pee pills" but has not been because he has to urinate too frequently and he doesn't like that. He is agreeable to diuretics only if a thornton catheter can be placed. He denies any c/o CP. No c/o palpitations at this time. Review of Systems-Cardiology Review of Systems Constitutional: No chills, No fever; malaise Eyes: No vision change Ears/Nose/Throat: No epistaxis, No recent hearing loss Respiratory: As described under HPI Cardiovascular: As described under HPI Gastrointestinal: No constipation, No diarrhea, No nausea, No vomiting Genitourinary: No dysuria, No hematuria Musculoskeletal: As describe under HPI, back pain Skin: No rash on exposed areas, No ulcerations on exposed areas Psychiatric/Neurological: No anxiety, No depression, No seizure, No focal weakness, No syncope Hematologic: No bleeding abnormalities HRT-Bymxjb-Foluba Hx Patient Social History Smoking Status: Former Smoker Former smoker/When Quit: Nov 20, 1977 Have you traveled recently?: No Alcohol Use?: Yes Pt feels they are or have been: No Tobacco type used: Cigarettes Immunizations Up To Date Tetanus Booster (TDap): Unknown Date of Pneumonia Vaccine: Jul 29, 2020 Date of Influenza Vaccine: Aug 20, 2020 Past Medical History PMH As described under Assessment. Family Medical History Family Medical History: Denies any family h/o CAD or CVA. Reports mother had HTN. Family History: Patient reports no known family medical history. Allergies and Home Medications Allergies Coded Allergies: Vnsfifi-Nef-Ejc Reductase Inhibitor (Unverified Allergy, Unknown, 03/12/19) codeine (Unverified Adverse Reaction, Mild, Altered taste, 02/13/15) Uncoded Allergies: beta blockers (Adverse Reaction, Severe, severe bradycardia, 04/07/20) Home Medications Acetaminophen 500 Mg Tablet, 1,000 MG PO Q8H PRN for PAIN-MILD (1-4), (Reported) Last Action: Continued Apixaban 5 Mg Tablet, 5 MG PO BID, (Reported) Last Action: Continued Aspirin 81 Mg Tablet.dr, 81 MG PO DAILY, (Reported) Last Action: Continued Diltiazem HCl 120 Mg Cap.er.24h, 120 MG PO HS, (Reported) Last Action: Continued Diltiazem HCl 120 Mg Cap.er.24h, 240 MG PO DAILY, (Reported) TAKES 2 (120MG) CAPS Last Action: Continued Docusate Sodium 100 Mg Capsule, 100-200 MG PO DAILY PRN for CONSTIPATION-1ST LINE, (Reported) Last Action: Held Furosemide 80 Mg Tablet, 80 MG PO DAILY PRN for FLUID RETENTION, (Reported) Last Action: Converted Multivit-Min/FA/Lycopen/Lutein 1 Each Tablet, 1 EACH PO DAILY, (Reported) Last Action: Converted Tramadol HCl 50 Mg Tablet, 50 MG PO TID PRN for PAIN-MODERATE (5-7), (Reported) Last Action: Continued Patient Home Medication List Home Medication List Reviewed: Yes Physical Exam-Cardiology Physical Exam Vital Signs/I&O 05/18/21 05/19/21 05/19/21 05/19/21 23:13 01:00 03:59 06:37 Temp 36.6 36.7 Pulse 98 101 115 105 Resp 16 21 B/P (MAP) 112/64 (80) 113/69 (84) Pulse Ox 93 97 O2 Delivery Room Air Room Air 05/19/21 05/19/21 08:00 08:00 Pulse 97 Resp 21 B/P (MAP) 112/88 (96) Pulse Ox 97 O2 Delivery Room Air Room Air 05/19/21 00:00 Intake Total 1040 ml Output Total 3075 ml Balance -2035 ml Capillary Refill : Less Than 3 Seconds Constitutional: AAO x 3, other (thin; frail) HEENT: PERRL, hard of hearing, oral hygience is good Neck: No carotid bruit; carotid pulses are 2 + bilaterally Respiratory: No accessory muscle use, No respiratory distress; chest expansion is symmetric, chest is bilaterally symmetric, lungs clear to auscultation Cardiovascular: irregularly irregular; No JVD; S1 and S2 Gastrointestinal: No tender; soft, round, audible bowel sounds Extremities: other (bilat LE pitting edema) Neurologic/Psychiatric: grossly intact (moves all extremities) Skin: No rash on exposed areas, No ulcerations on exposed areas Data Review Labs Laboratory Tests 05/19/21 03:45: Sodium Level 138, Potassium Level 3.3L, Chloride Level 102, Carbon Dioxide Level 25, Anion Gap 11, Blood Urea Nitrogen 29H, Creatinine 1.15, Estimat Glomerular Filtration Rate 60, BUN/Creatinine Ratio 25, Glucose Level 113H, Calcium Level 8.7, Magnesium Level 1.8 Radiology NAME: TAJ ELKINS [facility] REC#: [id number] PT STATUS: REG ER : 1935 PHYSICIAN: LANDEN LUCAS APRN ADMIT DATE: 05/17/21/ER Signed Date of Exam:05/17/21 FEMUR, LEFT, 2 VIEWS INDICATION: Fall. TIME OF EXAM: 02:05 p.m. TECHNIQUE: Frontal and lateral views of the left femur were obtained. FINDINGS: A plate and compression screws transfix the proximal left femur. Alignment is anatomic. Femoroacetabular alignment is normal. Remainder of the left femur is intact. No acute fracture is seen. There is generalized demineralization. IMPRESSION: Postop changes to the left hip. No acute fracture is detected. Dictated by: Dictated on workstation # [id number] Dict: 05/17/21 1434 Trans: 05/17/21 1557 [id number] [id number] Interpreted by: YOLA JONES MD Electronically signed by: YOLA JONES MD 05/17/21 1557 NAME: TAJ ELKINS [facility] REC#: [id number] PT STATUS: REG ER : 1935 PHYSICIAN: LANDEN LUCAS APRN ADMIT DATE: 05/17/21/ER Signed Date of Exam:05/17/21 CT EXTREMITY LOWER LEFT WO Exam: CT left knee without contrast. Date: May 17, 2021. Indication: 86-year-old male, fall this morning. Distal femur and knee pain. Comparison: Left femur radiographs May 17, 2021. Left knee radiographs November 18, 2020. Technique: Axial CT images of the left knee were obtained without contrast. Coronal and sagittal reformats were obtained and provided. All CT scans use one or more of the following dose optimizing techniques: automated exposure control, MA and/or KvP adjustment based on a patient size and exam type, or iterative reconstruction. . Findings: There is severe medial and patellofemoral compartment joint space loss. There is mild lateral compartment joint space loss. There is chondrocalcinosis. There is no large knee joint effusion. There is no acute fracture. There is no aggressive bone lesion. There are atherosclerotic calcifications. There is nonspecific subcutaneous edema at the level of the imaged tibia and fibula. Impression: 1. 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 2. Chondrocalcinosis which has multiple associations including advanced age and calcium pyrophosphate dihydrate deposition disease. 3. No large knee joint effusion. 4. No acute fracture. Dictated by: Dictated on workstation # [id number] Dict: 05/17/21 1446 Trans: [id number]/17/211654 [facility] [id number] Interpreted by: ALICIA ANTHONY MD Electronically signed by: ALICIA ANTHONY MD 05/17/21 1655 NAME: TAJ ELKINS [facility] REC#: [id number] PT STATUS: REG ER : 1935 PHYSICIAN: LANDEN LUCAS APRN ADMIT DATE: 05/17/21/ER Signed Date of Exam:05/17/21 CT LUMBAR SPINE WO PROCEDURE: CT lumbar spine without contrast. TECHNIQUE: Multiple contiguous axial images were obtained through the lumbar spine without the use of intravenous contrast. Sagittal and coronal reformations were then performed. Auto Exposure Controls were utilized during the CT exam to meet ALARA standards for radiation dose reduction. INDICATION: Back pain. COMPARISON: 01/04/2015. FINDINGS: There has been interval performance of kyphoplasty at L2, L3, and L4. There is mild increase in concavity of the superior endplate of L5. Note is also made of mild depression of the superior endplate of T12. There is no definite associated paravertebral hematoma although there is mild right pleural fluid present. Note is made of urinary bladder distention. IMPRESSION: Treated fractures at L2, L3, and L4 with mild superior endplate compression deformities at T12 and L5 of indeterminate age. These are new since 01/04/2015 and consideration could be given to MRI to evaluate for marrow edema or hemorrhage. Dictated by: Dictated on workstation # [id number] Dict: 05/17/21 1607 Trans: 05/17/21 1658 [id number] Interpreted by: SRINI CHEN MD Electronically signed by: SRINI CHEN MD 05/17/21 1658 ECG Impression ECG Initial ECG Impression: Atrial Fibrillation w/RVR A/P-Cardiology Assessment/Admission Diagnosis Non-syncopal fall resulting in left thigh/knee pain A-fib with RVR - rate now controlled - H/O A Fib with RVR. Long-acting dilt for rate control. 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 - Last cath was on 05/20/14. It showed diffuse disease consisting of up to 50% stenoses in all cors. FFR across multiple mid-vessel LAD lesions was 0.92, indicating hemodynamic insignificance. There was a patent stent in mid LAD and in distal RCA. Distal RCA stent is known to be Promus [id number] placed in Aug 2012. LVEF on cath of May 2014 was 45% and LVEDP was mildly elevated Hyperlipidemia, but the patient is intolerant to statins. Postural hypotension, resolved following cessation of therapy with RYAN inhibitors and Terazosin. Multiple medication intolerances. See below. - Intolerance to beta-blockers on account of symptomatic bradycardia and hypotension. - Intolerance to RYAN inhibitors on account of postural hypotension - Intolerance to ARBs on account of dizziness. - Intolerance to warfarin due to nonspecific symptoms and fear of side effects - has tolerated apixaban Mild carotid arterial disease (less than 40%) per carotid ultrasonography of May 2016. Chronic moderate vertigo. Chronic low back pain, s/p low low back kyphoplasty, but back pain has persisted Discussion and Recomendations A-fib with RVR - chronic a-fib - rate is currently controlled - continue home dose of Cardizem CD OAC with Eliquis for stroke prophylaxis - continue current dose Monitor lab closely Replace electroytes as indicatd Give diuretics if patient will allow Management of left leg pain is per medical services I have spoken with Dr. Andersen this morning We would like to thank her for this consult CAITLYN SANTILLAN May 18, 2021 10:46
--- NOTE | 2021-05-18 11:00 | Occ Therapy Progress Note ---
Therapy Progress Note Pt is transferring to ICU due to elevated heart rate. OT will require new orders when pt is more medically stable and able to actively participate in skilled therapy. RADHA RUIZ OT May 18, 2021 11:00
[2021-05-18] MEDS ORDERED: FUROSEMIDE 40 MG/4 ML INJ (LASIX) IVP ONE (11:15)
[2021-05-18 12:00] VITALS: BP 119/68
--- NOTE | 2021-05-18 12:43 | Occupational Therapy Eval ---
OT Evaluation-General/PLF Medical Diagnosis Admission Date May 17, 2021 at 16:49 Medical Diagnosis: intractable L leg pain Onset Date: May 17, 2021 Therapy Diagnosis Therapy Diagnosis: weakness, decreased ADL status Height/Weight Height (Feet): 6 Height (Inches): 2.00 Weight (Pounds): 163 Weight (Ounces): 2.0 Precautions Precautions/Isolations: Fall Prevention, Standard Precautions Referral Physician: Ganesh Referral Reason: Evaluation/Treatment Medical History Pertinent Medical History: Atrial Fib, HTN, DC Additional Medical History cardiac stent x2, L hip surgery, bowel resection, DVT, CVA, vertigo, L wrist fx. Current History L leg injury after fall Social History Current Living Status: Spouse ADL-Prior Level of Function SCALE: Activities may be completed with or without assistive devices. 9-Tussgpqffp-jvicigf completes the activity by him/herself with no assistance from a helper. 5-Set-up or Clean-up Assistance-helper sets up or cleans up; patient completes activity. [place] assists only prior to or following the activity. 4-Supervision or Touching Assistance-helper provides verbal cues and/or touching/steadying and/or contact guard assistance as patient completes activity. Assistance may be provided throughout the activity or intermittently. 3-Partial/Moderate Assistance-helper does LESS THAN HALF the effort. [place] lifts, holds or supports trunk or limbs, but provides less than half the effort. 2-Substantial/Maximal Assistance-helper does MORE THAN HALF the effort. [place] lifts or holds trunk or limbs and provides more than half the effort. 3-Szqdjozit-wimfmm does ALL the effort. Patient does none of the effort to complete the activity. Or, the assistance of 2 or more helpers is required for the patient to complete the activity. If activity was not attempted, code reason: 7-Patient Refused. 9-Not Applicable-not attempted and the patient did not perform the activity before the current illness, exacerbation or injury. 10-Not Attempted due to Environmental Limitations-(lack of equipment, weather restraints, etc.). 88-Not Attempted due to Medical Conditions or Safety Concerns. ADL PLOF Comments Pt reports IND with ADLs at PLOF Self Care: Unknown OT Current Status Subjective Pt laying in bed, and daughter present. Mental Status/Objective Patient Orientation: Person, Place, Situation Current Glasses/Contacts: Yes Dentures/Partials: Yes Hand Dominance: Right Upper Extremity ROM WFL Upper Extremity Coordination WFL Upper Extremity Sensation WFL Upper Extremity Strength grossly 3/5 ADL-Treatment Eating (QC): 6 (Pt able to reach for water cup on table and take drink) Oral Hygiene (QC): 3 (Pt required cue to locate tablet after opening. OT assisted with filling cup with water.) Other Treatments Pt laying in bed, agreeable to OT evaluation and tx. OT educated pt on purpose and benefit of OT, he verbalized understanding. Pt provided information about PLOF and home set up, and participated in UE screen. Pt indicates he would like to remove his dentures. OT provided pt with denture cup and tablet. Pt able to open tablet, but required cue to locate as pt thought he dropped onto bed (tablet still in packet). Pt placed dentures and tablet into cup, OT filled with water to let soak. OT handed pt warm wash cloth, he washed his face with set up assistance, then requested OT rewet washcloth. Pt handed wash cloth again and rested onto forehead. Pt declined further activity at this time. Post tx, pt laying in bed, call light in reach and all needs met, bed alarm on. Education OT Patient Education: Correct positioning, Modified ADL techniques, Progress toward Goal/Update tx plan, Purpose of tx/functional activities, Rehab process Teaching Recipient: Patient Teaching Methods: Discussion Response to Teaching: Verbalize Understanding OT Long-Term Goals Long Line Teamster Goals Time Frame: May 28, 2021 Eating (QC): 6 Oral Hygiene (QC): 6 Toileting Hygiene (QC): 6 Shower/Bathe Self (QC): 6 Upper Body Dressing (QC): 6 Lower Body Dressing (QC): 6 On/Off Footwear (QC): 6 Additional Goals: 1-Demonstrate ADL Tasks, 2-Verbalize Understanding, 3-ImproveStrength/Virgilio 1=Demonstrate adherence to instructed precautions during ADL tasks. 2=Patient will verbalize/demonstrate understanding of assistive devices/modifications for ADL. 3=Patient will improve strength/tolerance for activity to enable patient to perform ADL's. OT Education/Plan Problem List/Assessment Assessment: Decreased Activ Tolerance, Decreased UE Strength, Impaired I ADL's, Impaired Self-Care Skills Pt would benefit from short term skilled OT services in order to increase BUE strength and activity tolerance, and to increase safety and independence with ADLs and functional mobility to maximize LOF for safe return home. Discharge Recommendations Plan/Recommendations: Continue POC Treatment Plan/Plan of Care Patient would benefit from OT for education, treatment and training to promote independence in ADL's, mobility, safety and/or upper extremity function for ADL's. Plan of Care: ADL Retraining, Functional Mobility, UE Funct Exercise/Act Treatment Duration: May 28, 2021 Frequency: 5 times per week Estimated Hrs Per Day: .25 hour per day Time/GCodes Start Time: 12:20 Stop Time: 12:33 Total Time Billed (hr/min): 13 Billed Treatment Time 1, RADHA GAMBOA OT May 18, 2021 12:43
--- NOTE | 2021-05-18 13:31 | Consultation-Cardiology ---
HPI-Cardiology Cardiology Consultation: Date of Consultation 05/18/21 Time Seen by a Provider: 12:30 Date of Admission Attending Physician Halle Andersen MD Admitting Physician Elieser Peraza MD Consulting Physician UZIEL SHEEHAN MD, MA, FACP, FACC, [facility], CCDS Physician requesting consult: Dr. Andersen HPI: Chief Complaint: Reason for Cardiology consultation: A-fib with RVR HPI Mr. Prince is an 86 yr old male admitted to 417 from the ED following a non- syncopal fall at home with c/o left thigh and knee pain. He was transferred to [facility] from the 4th floor d/t converting to a-fib with RVR. He is currently a-fib with a controlled rate. He has chronic SOB, but feels it maybe somewhat worse than before. He reports bilat LE swelling, but feels it is about the same as it always is. He reports he is supposed to be taking "pee pills" but has not been because he has to urinate too frequently and he doesn't like that. He is agreeable to diuretics only if a thornton catheter can be placed. He denies any c/o CP. No c/o palpitations at this time. Review of Systems-Cardiology Review of Systems Constitutional: No chills, No fever; malaise, tiredness Eyes: No vision change Ears/Nose/Throat: No epistaxis, No recent hearing loss Respiratory: As described under HPI Cardiovascular: As described under HPI Gastrointestinal: No constipation, No diarrhea, No nausea, No vomiting Genitourinary: No dysuria, No hematuria Musculoskeletal: As describe under HPI, back pain Skin: No rash on exposed areas, No ulcerations on exposed areas Psychiatric/Neurological: No anxiety, No depression, No seizure, No focal weakness, No syncope Hematologic: No bleeding abnormalities UNE-Dturlf-Vefnyr Hx Patient Social History Smoking Status: Former Smoker Former smoker/When Quit: Nov 20, 1977 Have you traveled recently?: No Alcohol Use?: Yes Pt feels they are or have been: No Tobacco type used: Cigarettes Immunizations Up To Date Tetanus Booster (TDap): Unknown Date of Pneumonia Vaccine: Jul 29, 2020 Date of Influenza Vaccine: Aug 20, 2020 Past Medical History PMH As described under Assessment. Family Medical History Family Medical History: Denies any family h/o CAD or CVA. Reports mother had HTN. Family History: Patient reports no known family medical history. Allergies and Home Medications Allergies Coded Allergies: Zitavtb-Jwk-Bqo Reductase Inhibitor (Unverified Allergy, Unknown, 03/12/19) codeine (Unverified Adverse Reaction, Mild, Altered taste, 02/13/15) Uncoded Allergies: beta blockers (Adverse Reaction, Severe, severe bradycardia, 04/07/20) Home Medications Acetaminophen 500 Mg Tablet, 1,000 MG PO Q8H PRN for PAIN-MILD (1-4), (Reported) Last Action: Continued Apixaban 5 Mg Tablet, 5 MG PO BID, (Reported) Last Action: Continued Aspirin 81 Mg Tablet.dr, 81 MG PO DAILY, (Reported) Last Action: Continued Diltiazem HCl 120 Mg Cap.er.24h, 120 MG PO HS, (Reported) Last Action: Continued Diltiazem HCl 120 Mg Cap.er.24h, 240 MG PO DAILY, (Reported) TAKES 2 (120MG) CAPS Last Action: Continued Docusate Sodium 100 Mg Capsule, 100-200 MG PO DAILY PRN for CONSTIPATION-1ST LINE, (Reported) Last Action: Held Furosemide 80 Mg Tablet, 80 MG PO DAILY PRN for FLUID RETENTION, (Reported) Last Action: Converted Multivit-Min/FA/Lycopen/Lutein 1 Each Tablet, 1 EACH PO DAILY, (Reported) Last Action: Converted Tramadol HCl 50 Mg Tablet, 50 MG PO TID PRN for PAIN-MODERATE (5-7), (Reported) Last Action: Continued Patient Home Medication List Home Medication List Reviewed: Yes Physical Exam-Cardiology Physical Exam Vital Signs/I&O 05/18/21 05/18/21 05/18/21 05/18/21 03:28 04:56 05:48 07:00 Temp 36.1 Pulse 125 147 95 110 Resp 18 B/P (MAP) 142/80 (100) Pulse Ox 94 O2 Delivery Room Air 05/18/21 05/18/21 05/18/21 08:00 08:37 12:00 Temp 37.0 35.5 Pulse 106 77 Resp 19 16 B/P (MAP) 138/76 (96) 119/68 (85) Pulse Ox 95 96 O2 Delivery Room Air Room Air Room Air 05/17/21 23:59 Intake Total 325 ml Balance 325 ml Capillary Refill : Less Than 3 Seconds Constitutional: AAO x 3, other (thin; frail) HEENT: PERRL, hard of hearing, oral hygience is good Neck: No carotid bruit; carotid pulses are 2 + bilaterally Respiratory: No accessory muscle use, No respiratory distress; chest expansion is symmetric, chest is bilaterally symmetric, lungs clear to auscultation Cardiovascular: irregularly irregular; No JVD; S1 and S2, systolic murmur (soft ELIE at card base) Gastrointestinal: No tender; soft, round, audible bowel sounds Extremities: other (bilat LE pitting edema) Neurologic/Psychiatric: grossly intact (moves all extremities) Skin: No rash on exposed areas, No ulcerations on exposed areas Data Review Labs Laboratory Tests 05/17/21 14:16: White Blood Count 8.5, Red Blood Count 3.91L, Hemoglobin 13.0L, Hematocrit 38L, Mean Corpuscular Volume 98, Mean Corpuscular Hemoglobin 33, Mean Corpuscular Hemoglobin Concent 34, Red Cell Distribution Width 15.8H, Platelet Count 154, Mean Platelet Volume 13.2H, Immature Granulocyte % (Auto) 1, Neutrophils (%) (Auto) 82H, Lymphocytes (%) (Auto) 9L, Monocytes (%) (Auto) 8, Eosinophils (%) (Auto) 0, Basophils (%) (Auto) 0, Neutrophils # (Auto) 6.9, Lymphocytes # (Auto) 0.8L, Monocytes # (Auto) 0.7, Eosinophils # (Auto) 0.0, Basophils # (Auto) 0.0, Immature Granulocyte # (Auto) 0.1, Percent Immature Platelet Fraction 15.4H, Sodium Level 138, Potassium Level 3.6, Chloride Level 101, Carbon Dioxide Level 22, Anion Gap 15H, Blood Urea Nitrogen 18, Creatinine 1.13, Estimat Glomerular Filtration Rate > 60, BUN/Creatinine Ratio 16, Glucose Level 140H, Calcium Level 10.0, Corrected Calcium 10.2H, Total Bilirubin 1.8H, Aspartate Amino Transf (AST/SGOT) 25, Alanine Aminotransferase (ALT/SGPT) 16, Alkaline Phosphatase 73, B-Type Natriuretic Peptide 265.6H, Total Protein 7.0, Albumin 3.7 A/P-Cardiology Assessment/Admission Diagnosis Non-syncopal fall resulting in left thigh/knee pain A-fib with RVR - rate now controlled - H/O A Fib with RVR. Long-acting dilt for rate control. 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 - Last cath was on 05/20/14. It showed diffuse disease consisting of up to 50% stenoses in all cors. FFR across multiple mid-vessel LAD lesions was 0.92, indicating hemodynamic insignificance. There was a patent stent in mid LAD and in distal RCA. Distal RCA stent is known to be Promus [id number] placed in Aug 2012. LVEF on cath of May 2014 was 45% and LVEDP was mildly elevated Hyperlipidemia, but the patient is intolerant to statins. Postural hypotension, resolved following cessation of therapy with RYAN inhibitors and Terazosin. Multiple medication intolerances. See below. - Intolerance to beta-blockers on account of symptomatic bradycardia and hypotension. - Intolerance to RYAN inhibitors on account of postural hypotension - Intolerance to ARBs on account of dizziness. - Intolerance to warfarin due to nonspecific symptoms and fear of side effects - has tolerated apixaban Mild carotid arterial disease (less than 40%) per carotid ultrasonography of May 2016. Chronic moderate vertigo. Chronic low back pain, s/p low low back kyphoplasty, but back pain has persisted Discussion and Recomendations A-fib with RVR - chronic a-fib - rate is currently controlled - continue home dose of Cardizem CD OAC with Eliquis for stroke prophylaxis - continue current dose Monitor lab closely Replace electroytes as indicatd Give diuretics if patient will allow Management of left leg pain is per medical services We would like to thank the [facility] [place], [place] for for this consult UZIEL SHEEHAN MD FACP [facility] May 18, 2021 13:31
--- NOTE | 2021-05-18 13:39 | ST Dysphagia Evaluation ---
Speech Evaluation-General Medical Diagnosis intractable L leg pain Onset Date: May 17, 2021 Therapy Diagnosis Therapy Diagnosis: Oropharyngeal Dysphagia Precautions Precautions: Aspiration Precautions/Isolations: Aspiration Referral Referring Physician: Dr. Andersen Medical History Pertinent Medical History: Atrial Fib, HTN, [place] Reviewed History: Yes Social History Current Living Status: Spouse Speech PLF/Current-Dysphagia Prior Level of Function Patient lives at home with his where he is independent with much of his daily needs. and daughter were present for the BDE. Subjective Patient was cooperative with the Bedside Dysphagia Evaluation, although he did refuse to put his dentures in for the evaluation. Cognitive Status Patient Orientation: Person, Place, Situation Oral Motor Skills Dentition: Edentalous Denture Type: Full- Upper & Lower Patient is NPO pending BDE. Voice Voice Phonatory-Based Quality: Breathy, Weak Voice Pitch: Normal Voice Loudness: Mildly Soft/Quiet Face Facial Symmetry: Symmetrical Oral-Facial Assessment Oral-Facial Dentition: Normal Labial Seal Description: Normal Lingual Protrusion: Normal Lingual ROM: Normal Lingual Strength: Normal Pharynx Velopharyngeal Move.: Normal Volitional Dry Swallow: Yes Voluntary Cough: Yes Dysphagia Evaluation Consistencies Presented: Thin Liquid, Pureed Patient refused to put his dentures in so greater than puree not presented Oral phase is within normal range for thin and puree. Patient refuses to drink small sip, but has a few drops on his lips only. Pharyngeal phase is within normal range of function for presented texture. Dietary Recommendations: Pureed Liquid Recommendations: Thin Swallowing Precautions: Alternate Liquids/Solids, Double Swallow, Decreased Bolus 1/2 Tsp, Liquids from Straw, Small Bites and Sips, Sitting Upright 90 Degrees, Sitting 90 Degrees 30 Post Intake Dysphagia Evaluation Summary Patient was referred for a BDE by Dr. Andersen. Patient was evaluated at bedside with and daughter present. Patient exhibited some odd behaviors during the evaluation. He refused to put his dentures in as well as refused to take a sip of liquids by straw. Instead he took a few drops on his lips and swallowed without difficulty. He took a 1/2 tsp of puree. Patient was not given any higher level of diet due to being edentulous. Patient's reports he doesn't eat at home except for the highest fat content hamburger and Julio Dre breakfast. Patient is recommended for Dysphagia I diet level and thin liquids which was written on the white board in his room as well as provided to his nurse. Barriers to Learning Patient's age and refusal to be compliant Speech-Plan Patient/Family Goals Patient/Family Goals: Patient plans on returning to his home upon discharge. Treatment Plan Speech Therapy Treatment Plan: Discontinue ST Treatment Duration: May 18, 2021 Frequency: 1 time per week Estimated Hrs Per Day: .25 hour per day Rehab Potential: Fair Barriers to Learning: Patient's age and refusal to be compliant Pt/Family Agrees to Plan: Yes Safety Risks/Education Teaching Recipient: Patient, Family, Significant Other Teaching Methods: Discussion Response to Teaching: Verbalize Understanding Education Topics Provided: Safety of oral intake, diet level Time Speech Therapy Time In: 13:10 Speech Therapy Time Out: 13:20 Total Billed Time: 10 Billed Treatment Time 1, JEFRY VALLADARES [address] ST May 18, 2021 13:39
--- NOTE | 2021-05-18 13:59 | Physical Therapy Progress Note ---
Therapy Progress Note Order for evaluation received. Patient refuses physical therapy though. He says he is not doing anything right now. He apparently has been doing some physical therapy either at home or on an outpatient basis and says he knows what to do and what is expected of him. He refuses to do any exercises in bed or have his strength tested. He is educated on the benefits of therapy starting today but continues to refuse. Will try back in the morning. RAVEN LOAIZA PT May 18, 2021 13:59
[2021-05-18] MEDS: dilTIAZem DRIP PRE-MIX 125 ML IV SCH (14:07)
[2021-05-18] MEDS ORDERED: FUROSEMIDE 40 MG/4 ML INJ (LASIX) ONE (14:10)
[2021-05-18 16:00] VITALS: BP 119/68
[2021-05-18] MEDS: APIXABAN 5 MG (ELIQUIS) TABLET PO SCH (19:47)
[2021-05-18 20:00] VITALS: BP 119/68
[2021-05-18] MEDS ORDERED: dilTIAZem120 MG (CARDIZEM CD) CAP PO SCH (21:00)
[2021-05-18 23:13] VITALS: BP 112/64
[2021-05-19 03:59] VITALS: BP 113/69
[2021-05-19 04:20] LABS: POTASSIUM 3.3 MMOL/L (3.6-5.0)
[2021-05-19 04:21] LABS: CALCIUM 8.7 MG/DL (8.5-10.1)
[2021-05-19 04:25] LABS: CREATININE SERUM 1.15 MG/DL (0.60-1.30)
[2021-05-19 04:27] LABS: MAGNESIUM 1.8 MG/DL (1.6-2.4)
[2021-05-19] MEDS: CATHETER FLUSH 10 ML SYR IV SCH (05:59)
[2021-05-19] MEDS ORDERED: KCL 10 MEQ TAB (MICRO K) PO SCH (07:00)
[2021-05-19] MEDS ORDERED: KCL 20 MEQ TAB (K-DUR) PO ONE (07:45)
[2021-05-19 08:00] VITALS: BP 112/88
[2021-05-19] MEDS: APIXABAN 5 MG (ELIQUIS) TABLET PO SCH (08:04)
[2021-05-19] MEDS: DOCUSATE SODIUM 100 MG (COLACE) CAP PO SCH (08:05)
[2021-05-19] MEDS: dilTIAZem DRIP PRE-MIX 125 ML IV SCH (08:05)
--- NOTE | 2021-05-19 08:37 | Discharge Summary ---
Diagnosis/Chief Complaint Date of Admission May 17, 2021 at 16:49 Date of Discharge Admission Diagnosis Intractable leg pain Primary Care Elieser Peraza MD Discharge Summary Procedures/Consulations Cardiology- Dr Winters Discharge Physical Exam Allergies: Coded Allergies: Efyhvtv-Mjp-Vdc Reductase Inhibitor (Unverified Allergy, Unknown, 03/12/19) codeine (Unverified Adverse Reaction, Mild, Altered taste, 02/13/15) Uncoded Allergies: beta blockers (Adverse Reaction, Severe, severe bradycardia, 04/07/20) Vitals & I&Os Vital Signs Date Time Temp Pulse Resp B/P (MAP) Pulse Ox O2 Delivery O2 Flow Rate FiO2 05/19/21 12:29 05/19/21 08:00 97 21 97 Room Air 05/19/21 03:59 36.7 General Appearance: No Apparent Distress, Chronically ill, Thin Cardiovascular: No Murmur, Irregularly Irregular Gastrointestinal: Normal Bowel Sounds, Soft Hospital Course Pt was admitted due to a fall and intractable leg pain. He developed a-fib RVR and was to be started on cardizem gtt but rate became controlled with oral diltiazem. Cardiology was consulted. He reportedly is quite noncompliant at home with medications and refused lasix while here unless he had a catheter. PT was consulted but he declined PT services. On day of discharge his rate was controlled and pain improved. He was discharged home in stable condition to follow up with his PCP and Dr Winters. Labs (last 24 hrs) Patient resulted labs reviewed. Pending Labs Imaging: Reviewed Imaging Report Discussion & Recommendations Discharge Planning: >30 minutes discharge planning Discharge Home Medications: Active Scripts Active Potassium Chloride 20 Meq Tablet.er 20 Meq PO DAILY Furosemide 40 Mg Tablet 40 Mg PO DAILY Reported Tylenol Extra Strength (Acetaminophen) 500 Mg Tablet 1,000 Mg PO Q8H PRN Tramadol HCl 50 Mg Tablet 50 Mg PO TID PRN Cartia Xt (Diltiazem HCl) 120 Mg Cap.er.24h 240 Mg PO DAILY TAKES 2 (120MG) CAPS Cartia Xt (Diltiazem HCl) 120 Mg Cap.er.24h 120 Mg PO HS Stool Softener (Docusate Sodium) 100 Mg Capsule 100-200 Mg PO DAILY PRN Centravites 50 Plus Tablet (Multivit-Min/FA/Lycopen/Lutein) 1 Each Tablet 1 Each PO DAILY Aspirin EC (Aspirin) 81 Mg Tablet. 81 Mg PO DAILY Eliquis (Apixaban) 5 Mg Tablet 5 Mg PO BID Instructions to patient/family Please see electronic discharge instructions given to patient. Copy Copies To 1: ION Valadez MD May 19, 2021 08:37
[2021-05-19] MEDS ORDERED: ASPIRIN E.C. 81 MG (ECOTRIN) TAB PO SCH (09:00)
[2021-05-19] MEDS ORDERED: dilTIAZem120 MG (CARDIZEM CD) CAP PO SCH (09:00)
[2021-05-19] MEDS ORDERED: MULTIVIT W/MINERALS TAB (THERAGRAN M) PO SCH (09:00)
[2021-05-19] MEDS ORDERED: FUROSEMIDE 40 MG (LASIX) TAB PO SCH (09:00)
--- NOTE | 2021-05-19 09:01 | Cardiology Progress Note ---
Progress Note-Cardiology Events since last exam Date Seen by Provider: May 19, 2021 Time Seen by Provider: 08:59 Events since last exam We are seeing him due to atrial fibrillation. Overnight, heart rates improved. He denies chest pain, dyspnea, palpitations, syncope, or ankle edema. No further falls. I was told by his nurse that the primary hospital provider might want to send him home today. The patient states that he is still having diarrhea and knee pain and is not sure he wants to go home today. Vitals Last set of Vitals Signs Vital Signs 05/19/21 03:59 Temp 36.7 Labs Labs Laboratory Tests 05/19/21 03:45 Exam Vital Signs Vital Signs Date Time Temp Pulse Resp B/P (MAP) Pulse Ox O2 Delivery O2 Flow Rate FiO2 05/19/21 12:29 05/19/21 08:00 97 21 97 Room Air 05/19/21 03:59 36.7 Physical Exam General: Alert. No acute distress. Eye: No xanthelasma. HENT: Normocephalic. Neck: Jugular venous pressure does not appear elevated. Respiratory: Lungs are clear to auscultation. Respirations are non-labored. Breath sounds are equal. Symmetrical chest wall expansion. Cardiovascular: Irregular rate and rhythm. No murmur. No gallop. No edema. Gastrointestinal: Soft. Normal bowel sounds. Skin: Warm. Dry. Neurologic: Alert and oriented to person, place, time. Cranial nerves 3-11 grossly intact. Psychiatric: Cooperative. Appropriate mood & affect. Diagnosis/Problems Diagnosis/Problems (1) Permanent atrial fibrillation Assessment & Plan: Heart rates improved. Continue diltiazem for rate control and apixaban for stroke prophylaxis. From a cardiac standpoint, the patient can be discharged home. Our office will be in touch with the patient to arrange for follow-up. (2) Coronary artery disease Status: Chronic Assessment & Plan: He has not been having any angina during this admission. Continue diltiazem for angina. He seems to be taking low strength aspirin and apixaban. One might consider stopping the aspirin but I will leave this up to the discretion of his regular county auditor. I am not entirely sure why the patient is not on statin medication. (3) Acute on chronic systolic heart failure Assessment & Plan: Symptomatically improved. I am not entirely sure why he is not on guideline directed medical therapy. For the time being, continue oral diuretic. We may want to consider adjusting his medications after discharge. However, I am just the covering county auditor the day. (4) Cardiomyopathy Assessment & Plan: As with his heart failure, I am not entirely sure why he is not on beta-charleen, RYAN or ARB, or spironolactone. This may need further investigation after discharge. I will leave this up to the discretion of his regular county auditor who knows the patient long-term. NUBIA VALENCIA JR, MD May 19, 2021 09:01
--- NOTE | 2021-05-19 09:10 | Physical Therapy Progress Note ---
Therapy Progress Note Patient refused physical therapy evaluation again this morning. He just says "no" to getting out of bed and refused to let therapist perform manual muscle testing due to leg pain and states he knows what to do when asked if he will perform exercises in bed. Will try back this afternoon. RAVEN LOAIZA PT May 19, 2021 09:10
--- NOTE | 2021-05-19 09:17 | Progress Note - Cardiology ---
Cardiology SOAP Progress Note Subjective: Sitting up in bed No c/o CP or palpitations Feels his SOB is better and LE swelling is better C/O left knee pain Objective: I&O/Vital Signs 05/19/21 05/19/21 05/19/21 05/19/21 03:59 06:37 08:00 08:00 Temp 36.7 Pulse 115 105 97 Resp B/P (MAP) 113/69 (84) 112/88 (96) Pulse Ox 97 97 O2 Delivery Room Air Room Air Room Air 05/19/21 12:29 B/P (MAP) 05/19/21 00:00 Intake Total 1040 ml Output Total 3075 ml Balance -2035 ml Weight (Pounds): 163 Weight (Ounces): 2.0 Weight (Calculated Kilograms): 73.223000 Constitutional: AAO x 3, other (thin; frail) Respiratory: No accessory muscle use, No respiratory distress; chest expansion is symmetric, chest is bilaterally symmetric, lungs clear to auscultation Cardiovascular: irregularly irregular; No JVD; S1 and S2, systolic murmur (soft ELIE at card base) Gastrointestional: No tender; soft, round, audible bowel sounds Extremities: other (bilat LE pitting edema) Neurologic/Psychiatric: grossly intact (moves all extremities) Skin: No rash on exposed areas, No ulcerations on exposed areas Results/Procedures: Labs Laboratory Tests 05/19/21 03:45: Sodium Level 138, Potassium Level 3.3L, Chloride Level 102, Carbon Dioxide Level 25, Anion Gap 11, Blood Urea Nitrogen 29H, Creatinine 1.15, Estimat Glomerular Filtration Rate 60, BUN/Creatinine Ratio 25, Glucose Level 113H, Calcium Level 8.7, Magnesium Level 1.8 A/P: Assessment: Non-syncopal fall resulting in left thigh/knee pain A-fib with RVR - rate now controlled - H/O A Fib with RVR. Long-acting dilt for rate control. 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 - Last cath was on 05/20/14. It showed diffuse disease consisting of up to 50% stenoses in all cors. FFR across multiple mid-vessel LAD lesions was 0.92, indicating hemodynamic insignificance. There was a patent stent in mid LAD and in distal RCA. Distal RCA stent is known to be Promus [id number] placed in Aug 2012. LVEF on cath of May 2014 was 45% and LVEDP was mildly elevated Hyperlipidemia, but the patient is intolerant to statins. Postural hypotension, resolved following cessation of therapy with RYAN inhibitors and Terazosin. Multiple medication intolerances. See below. - Intolerance to beta-blockers on account of symptomatic bradycardia and hypotension. - Intolerance to RYAN inhibitors on account of postural hypotension - Intolerance to ARBs on account of dizziness. - Intolerance to warfarin due to nonspecific symptoms and fear of side effects - has tolerated apixaban Mild carotid arterial disease (less than 40%) per carotid ultrasonography of May 2016. Chronic moderate vertigo. Chronic low back pain, s/p low low back kyphoplasty, but back pain has persisted Plan: A-fib with RVR - chronic a-fib - rate is currently fairly well controlled - continue current dose of Cardizem CD OAC with Eliquis for stroke prophylaxis - continue current dose Monitor lab as an out pt Management of left leg pain is per medical services Ok to discharge home from a cardiac stand point Out pt f/u in 2-3 weeks CAITLYN SANTILLAN May 19, 2021 09:17
[2021-05-19] MEDS ORDERED: FURO40TA4 PO (09:18)
[2021-05-19] MEDS ORDERED: POTA-51 PO (09:18)
--- NOTE | 2021-05-19 09:35 | D/C HH Face to Face Order ---
D/C Face to Face Orders Instructions for Patient Via [facility], Patient Instructions/FollowUp: Please Physician to follow Patient: Dr Peraza Discharge Diet for Home: Cardiac Diet Patient Data-Allergies,Ht & Wt Patient Allergies: Coded Allergies: Ebxwzdu-Ntf-Efj Reductase Inhibitor (Unverified Allergy, Unknown, 03/12/19) codeine (Unverified Adverse Reaction, Mild, Altered taste, 02/13/15) Uncoded Allergies: beta blockers (Adverse Reaction, Severe, severe bradycardia, 04/07/20) Height (Feet): 6 Height (Inches): 2.00 Weight (Pounds): 163 Weight (Ounces): 2.0 Home Health Need/Face to Face Date of Face to Face: May 19, 2021 Clinical Findings: Generalized weakness and fatigue I have seen Pt [id number]: Yes Discharged To: Home Diagnosis/Conditions: A fib, debility, falls Patient is Homebound due to: Muscle weakness Homebound Status Due to the above stated illness, injury or surgical procedure (medical condition or diagnosis) and associated clinical findings, the patient is homebound because of his/her inability to leave home except with aid of a supportive device and/or person AND leaving the home requires a considerable and taxing effort or is medically contraindicated. Pt req the following assistanc: Aid of another person, Walker Home Health Nursing Orders Home Health Services Order: Nursing Services, Physical Therapy-Evaluate & Treat Therapy Orders Therapy Orders: Physical Therapy, PT to assess for OT Therapy Specific Orders: Eval assistive deivces, Teach enviro modifications/safety, Gait training, Increase strength/endurance Certify Stmt I certify that this patient is under my care and that I, a nurse practitioner or a physician; a diversional therapist's assistant working with me, had a face to face encounter that - meets the physician face to face encounter requirements with this patient as dated. ION CONCEPCION MD May 19, 2021 09:35
--- NOTE | 2021-05-19 10:16 | Occ Therapy Progress Note ---
Therapy Progress Note OT attempted tx this morning, pt declined stating "I'm mad but I'm trying to keep my cool". Pt declined ADLs and declined UE exercise. Pt indicates he is able to do anything he needs and he does not want therapy today. Nurse indicates pt is planning on discharging today. OT will attempt again tomorrow if pt is still admitted. 1, refusal 1005 ARDHA RUIZ OT May 19, 2021 10:16
--- NOTE | 2021-05-19 20:44 | Physician Query Clarification ---
Physician Query-General Query to Physician: The medical record reflects the following clinical scenario: The patient, in the setting of History/Risk factors, Dilated Cardiomyopathy with EF of 15-20%, Chronic Systolic HF, A. Fib with RVR Clinical Findings BNP 265, 2+ pitting edema ("significant edema") bilateral lower extremities, Treatment IV lasix, Cardiazem gtt for rate control, (Unable to give BB, RYAN inhibitors, ARB's due to medication intolerances) Question: Do you agree with the impression of Acute on Chronic systolic heart failure per Dr. Zee Winters? 1. Yes; will document acute on chronic systolic heart failure, present on admission in the Progress Notes/Discharge summary 2. No; will continue current documentation in the Progress Notes 3. Other; will document explanation of clinical findings 4. Clinically undetermined; no explanation for clinical findings Please clarify and document your clinical opinion in the Progress Notes and Discharge Summary including the definitive and/or presumptive diagnosis, (suspected or probable), related to the above clinical findings. Please include clinical findings supporting your diagnosis. In responding to this query, please exercise your independent professional judgment. The purpose of this communication is to more accurately reflect the complexity of your patients condition. The fact that a question is asked does not imply that any particular answer is desired or expected. Please remember a lack of response to the above will prompt a phone page by CDI/coding staff Thank you for timely response to this clarification. Anai Monge MSN, RN [phone] [email or web address] PHYSICIAN RESPONSE: Based on the clinical findings in the record, please respond to the query above on this document as an addendum. Physician Response: Physician Response 1 If you have questions please contact: Optical Instrument Repairer: Ext: Thank you for your time and cooperation. Clinical Staple Laster/Optical Instrument Repairer This is a permanent part of the medical record ANAI MONGE May 19, 2021 20:44 ION CONCEPCION MD May 20, 2021 12:25
--- NOTE | 2021-05-19 20:52 | Physician Query Clarification ---
Physician Query-General Query to Physician: The medical record reflects the following clinical evidence: Clinical Indicators: Area of concern skin broken on Coccyx/Sacrum, Nursing admission documentation of "stage 2 pressure ulcer to Coccyx" Risk Factor(s): Multiple severe chronic illnesses, decreased mobility due to severe leg pain Treatment: Offloading strategies, turn q 2, [place], [place] consult for nutritional assessment 1. Pressure ulcer of sacral region, stage 2, Present on admission 2. Other explanation of clinical findings 3. Unable to determine (no explanation for clinical findings) Please clarify and document your clinical opinion in the progress notes and discharge summary including the definitive and/or presumptive diagnosis, (suspected or probable), related to the above clinical findings. Please include clinical findings supporting your diagnosis. Anai Green [phone] [email or web address] PHYSICIAN RESPONSE: Based on the clinical findings in the record, please respond to the query above on this document as an addendum. Physician Response: Physician Response 1 If you have questions please contact: Concrete Floater: Ext: Thank you for your time and cooperation. Clinical [employer]phalt [employer] Roofer/Concrete Floater This is a permanent part of the medical record ANAI GREEN May 19, 2021 20:52 ION CONCEPCION MD May 20, 2021 12:25
== END 2021-05-19 12:30 | disposition home health service (06) | DRG 308 ==
LOC: EDUNIT# 13:40 → ER 13:43 → 4TH 16:49 → CSD 05-18 10:59
PROVIDERS: ADMIT Family Medicine; ATTEND Family Medicine
DX: I48.21 Permanent atrial fibrillation (principal); I50.23 Acute on chronic systolic (congestive) heart failure; W18.30XA Fall on same level, unspecified, initial encounter; M79.652 Pain in left thigh; E78.00 Pure hypercholesterolemia, unspecified; I11.0 Hypertensive heart disease with heart failure; N40.0 Benign prostatic hyperplasia without lower urinary tract symptoms; G89.29 Other chronic pain; M54.9 Dorsalgia, unspecified; F41.9 Anxiety disorder, unspecified; R53.81 Other malaise; R13.10 Dysphagia, unspecified; M25.562 Pain in left knee; I42.0 Dilated cardiomyopathy; I25.10 Atherosclerotic heart disease of native coronary artery without angina pectoris; I95.1 Orthostatic hypotension; R42 Dizziness and giddiness; Z79.82 Long term (current) use of aspirin; Z79.01 Long term (current) use of anticoagulants; Z79.899 Other long term (current) drug therapy; Z87.891 Personal history of nicotine dependence; Z95.5 Presence of coronary angioplasty implant and graft; Z86.718 Personal history of other venous thrombosis and embolism; I25.2 Old myocardial infarction; Z86.73 Personal history of transient ischemic attack (TIA), and cerebral infarction without residual deficits; Z91.14 Patient's other noncompliance with medication regimen
CPT/HCPCS: 20610; 36415; 72131; 72170; 73552; 73700; 80048; 80053; 83735; 83880; 85025; 93005; 96372; 96374; 96375; 96376

== ENCOUNTER 2021-07-27 18:51 | Inpatient (IN) | payer MEDICARE, OTHER ==
[~2021-07-27] VITALS: Ht 188 cm; Wt 68.2 kg
[~2021-07-27 18:51] MED LIST changes: +ACET-2267 PO; +FURO80TA3 PO; +TRAM50TA3 PO
[2021-07-27] MEDS ORDERED: fentaNYL INJ 100 MCG/2 ML AMP IVP ONE (19:00)
[2021-07-27] MEDS ORDERED: NS IV 500 ML 500 ML IV ONE (19:00)
--- NOTE | 2021-07-27 19:05 | ED Fall/Injury ---
General Chief Complaint: Trauma-Non Activation Stated Complaint: FALL, R HIP PAIN Source: patient Exam Limitations: no limitations History of Present Illness Date Seen by Provider: Jul 27, 2021 Time Seen by Provider: 18:45 Initial Comments Patient to the ER by EMS from his home where he lives with his of 61 years and chief complaint that while using his walker he says his legs give out underneath him and he fell down onto his right hip. He has a small skin tear in his right elbow. He is having pain about 8 out of 10 in his right hip. He received 50 mcg of fentanyl which adequately treated his pain until he had to be moved over from the rney to the cot. He denies any nausea fevers chills cough shortness of air dysuria. He says he has had to urinate frequently because Dr. Winters put him on a water pill recently. He has a history of atrial fibrillation And is on Eliquis as well as diltiazem which he says he has been taking. EMS reports his heart rate was in the 120s to 130 range, atrial fibrillation. He denies striking his head nor syncope. The patient remarks he had a left hip fracture repaired by Dr. Petit in October 2020. Allergies and Home Medications Allergies Coded Allergies: Jnynzwb-Kss-Orj Reductase Inhibitor (Unverified Allergy, Unknown, 03/12/19) codeine (Unverified Adverse Reaction, Mild, Altered taste, 02/13/15) Uncoded Allergies: beta blockers (Adverse Reaction, Severe, severe bradycardia, 04/07/20) Patient Home Medication List Home Medication List Reviewed: Yes Acetaminophen (Tylenol Extra Strength) 500 Mg Tablet, 1,000 MG PO Q8H PRN for PAIN-MILD (1-4), (Reported) Entered as Reported by: ERICA ENG on 05/18/21 0849 Apixaban (Eliquis) 5 Mg Tablet, 5 MG PO BID, (Reported) Entered as Reported by: VARINDER APONTE on 10/23/17 1723 Aspirin (Aspirin EC) 81 Mg Tablet.dr, 81 MG PO DAILY, (Reported) Entered as Reported by: ESTELLA FLORES on 03/11/19 0936 Diltiazem HCl (Cartia Xt) 120 Mg Cap.er.24h, 120 MG PO HS, (Reported) Entered as Reported by: ERICA ENG on 11/19/20 1652 Diltiazem HCl (Cartia Xt) 120 Mg Cap.er.24h, 240 MG PO DAILY, (Reported) Entered as Reported by: ERICA ENG on 11/19/20 165 Docusate Sodium (Stool Softener) 100 Mg Capsule, 100-200 MG PO DAILY PRN for CONSTIPATION-1ST LINE, (Reported) Entered as Reported by: ERICA ENG on 04/07/20 105 Furosemide (Furosemide) 40 Mg Tablet, 40 MG PO DAILY Prescribed by: CAITLYN SANTILLAN on 05/19/21 0918 Multivit-Min/FA/Lycopen/Lutein (Centravites 50 Plus Tablet) 1 Each Tablet, 1 EACH PO DAILY, (Reported) Entered as Reported by: ERICA ENG on 04/07/20 1053 Potassium Chloride (Potassium Chloride) 20 Meq Tablet.er, 20 MEQ PO DAILY Prescribed by: CAITLYN SANTILLAN on 05/19/21 0918 Tramadol HCl (Tramadol HCl) 50 Mg Tablet, 50 MG PO TID PRN for PAIN-MODERATE (5- 7), (Reported) Entered as Reported by: ERICA ENG on 05/18/21 0849 Review of Systems Review of Systems Constitutional: No chills, No fever, No malaise Eyes: Denies Blindness, Denies Blurred Vision, Denies Drainage Ears, Nose, Mouth, Throat: denies ear pain, denies nose pain Respiratory: No cough, No short of breath Cardiovascular: No chest pain, No edema Gastrointestinal: No abdominal pain, No nausea, No vomiting Genitourinary: No dysuria; frequency Musculoskeletal: see HPI; No back pain; joint pain; No joint swelling All Other Systems Reviewed Negative Unless Noted: Yes Past Wclplhx-Bcmcfi-Grkpbo Hx Patient Social History Tobacco Use?: No Use of E-Cig and/or Vaping dev: No Substance use?: No Immunizations Up To Date Tetanus Booster (TDap): Unknown PED Vaccines UTD: No Seasonal Allergies Seasonal Allergies: No Past Medical History Surgeries: Yes (Cardiac stent x 2, L HIP, BOWEL RESECTION) Bowel Surgery, Coronary Stent, Orthopedic Respiratory: No Cardiac: Yes (Cardiac stent X2 ) Atrial Fibrillation, Deep Vein Thrombosis, Heart Attack, High Cholesterol, Hypertension Neurological: Yes Stroke, Vertigo Reproductive Disorders: No Genitourinary: Yes Benign Prostatic Hyperpl Gastrointestinal: No Polyps Musculoskeletal: Yes (FX L WRIST) Chronic Back Pain Endocrine: No HEENT: No Cancer: No Psychosocial: Yes Anxiety Integumentary: No Blood Disorders: No Adverse Reaction/Blood Tranf: No Family Medical History Patient reports no known family medical history. No Pertinent Family Hx Physical Exam Vital Signs Vital Signs - First Documented 07/27/21 18:52 Temp 35.9 Pulse 126 Resp 16 B/P (MAP) 128/88 (101) Pulse Ox 95 O2 Delivery Room Air Capillary Refill : Height, Weight, BMI Height: 6'2.00" Weight: 163lbs. 2.0oz. 73.465071cs; 120.16 BMI Method:Stated General Appearance: WD/WN, mild distress HEENT: PERRL/EOMI (3 mm reactive symmetric), normal ENT inspection, TMs normal (Without hemotympanum or mariee sign), pharynx normal, other (Atraumatic head without raccoon eyes) Neck: non-tender, full range of motion, supple, normal inspection Cardiovascular: normal peripheral pulses, regular rate, rhythm Respiratory: chest non-tender, lungs clear, normal breath sounds, no respiratory distress, no accessory muscle use Gastrointestinal: normal bowel sounds, non tender, soft Back: normal inspection, no vertebral tenderness Extremities: normal inspection, no pedal edema, normal capillary refill, other (Tenderness to palpation over the right femoral neck) Neurologic/Psychiatric: v belt finisher II-XII nml as tested, no motor/sensory deficits, alert, normal mood/affect, oriented x 3 Skin: other (1 cm dried small skin tear on the lateral right elbow) [place] Coma Score Best Eye Response: (4) Open Spontaneously Best Verbal Response: (5) Oriented Best Motor Response: (6) Obeys Commands [place] Total: 15 Progress/Results/Core Measures Results/Orders Lab Results Laboratory Tests Test 07/27/21 19:12 07/27/21 20:47 Range/Units White Blood Count 4.2 L 4.3-11.0 10^3/uL Red Blood Count 2.90 L 4.30-5.52 10^6/uL Hemoglobin 10.1 L 13.3-17.7 g/dL Hematocrit 30 L 40-54 % Mean Corpuscular Volume 105 H 80-99 fL Mean Corpuscular Hemoglobin 35 H 25-34 pg Mean Corpuscular Hemoglobin Concent 33 32-36 g/dL Red Cell Distribution Width 15.9 H 10.0-14.5 % Platelet Count 110 L 130-400 10^3/uL Mean Platelet Volume 13.1 H 9.0-12.2 fL Immature Granulocyte % (Auto) 1 % Neutrophils (%) (Auto) 53 42-75 % Lymphocytes (%) (Auto) 37 12-44 % Monocytes (%) (Auto) 9 0-12 % Eosinophils (%) (Auto) 1 0-10 % Basophils (%) (Auto) 0 0-10 % Neutrophils # (Auto) 2.2 1.8-7.8 10^3/uL Lymphocytes # (Auto) 1.6 1.0-4.0 10^3/uL Monocytes # (Auto) 0.4 0.0-1.0 10^3/uL Eosinophils # (Auto) 0.0 0.0-0.3 10^3/uL Basophils # (Auto) 0.0 0.0-0.1 10^3/uL Immature Granulocyte # (Auto) 0.0 0.0-0.1 10^3/uL Percent Immature Platelet Fraction 13.8 H 0.0-7.6 % Sodium Level 138 135-145 MMOL/L Potassium Level 3.9 3.6-5.0 MMOL/L Chloride Level 106 98-107 MMOL/L Carbon Dioxide Level 23 21-32 MMOL/L Anion Gap 9 5-14 MMOL/L Blood Urea Nitrogen 11 7-18 MG/DL Creatinine 0.70 0.60-1.30 MG/DL Estimat Glomerular Filtration Rate 107 BUN/Creatinine Ratio 16 Glucose Level 120 H 70-105 MG/DL Calcium Level 9.4 8.5-10.1 MG/DL Corrected Calcium 10.0 8.5-10.1 MG/DL Total Bilirubin 1.2 H 0.1-1.0 MG/DL Aspartate Amino Transf (AST/SGOT) 29 5-34 U/L Alanine Aminotransferase (ALT/SGPT) 27 0-55 U/L Alkaline Phosphatase 52 40-136 U/L Total Protein 5.7 L 6.4-8.2 GM/DL Albumin 3.3 3.2-4.5 GM/DL My Orders Orders - JAY RAMIREZ Ed Iv/Invasive Line Start (07/27/21 19:00) Ns Iv 500 Ml (Sodium Chloride 0.9%) (07/27/21 19:00) Fentanyl Inj (Sublimaze Injection) (07/27/21 19:00) Chest 1 View, Ap/Pa Only (07/27/21 19:00) Cbc With Automated Diff (07/27/21 19:00) Comprehensive Metabolic Panel (07/27/21 19:00) Ua Culture If Indicated (07/27/21:00) Ekg Tracing (07/27/21:00) Continuous Ekg Monitoring (07/27/21 19:00) Hip, Right, 2 Views (07/27/21 19:00) Ct Head/Cervical Spine Wo (07/27/21 19:06) Morphine Injection (Morphine Injection (07/27/21 20:36) Catheter(Urinary) Insert & Ass 03,15 (07/27/21 20:41) Diltiazem Cd 24 Hr Capsule (Cardizem Cd (07/27/21 21:00) Medications Given in ED Current Medications Medications Dose Ordered Sig/Adelfo Route Start Time Stop Time Status Last Admin Dose Admin Fentanyl Citrate 50 mcg ONCE ONCE IVP 07/27/21 19:00 07/27/21 19:01 DC 07/27/21 19:12 50 MCG Sodium Chloride 500 ml @ 0 mls/hr Q0M ONCE IV 07/27/21 19:00 07/27/21 19:01 DC 07/27/21 19:12 999 MLS/HR Vital Signs/I&O 07/27/21 18:52 Temp 35.9 Pulse 126 Resp 16 B/P (MAP) 128/88 (101) Pulse Ox 95 O2 Delivery Room Air Progress Progress Note #1: Time: 19:08 Progress Note Suspect a right hip fracture. Plan to image the hip, chest x-ray EKG labs and small aliquot of fluids to help with his tachycardia. Because of his urinary frequency which is likely due to his diuretics we will obtain a UA. Progress Note #2: Time: 20:50 Progress Note Despite a bolus of IV fluids and some pain medicine he still little tachycardic so we will give him a oral diltiazem dose that he has not had yet. Initial ECG Impression Date: Jul 27, 2021 Initial ECG Impression Time: 19:10 Initial ECG Rate: 113 Initial ECG Rhythm: A Fib/Flutter Initial ECG Intervals: QT (504) Initial ECG Impression: Atrial Fibrillation w/RVR Comment Atrial fibrillation with tachycardia. Diagnostic Imaging Diagonstic Imaging: Xray Plain Films/CT/US/NM/MRI: chest Comments [facility], [place] NAME: TAJ ELKINS JR [facility] REC#: [id number] PT STATUS: REG ER : 1935 PHYSICIAN: JAY RAMIREZ MD ADMIT DATE: 07/27/21/ER Signed Date of Exam:07/27/21 CHEST 1 VIEW, AP/PA ONLY CHEST 1 VIEW, AP/PA ONLY Indication: Fall with right hip pain Comparison: 04/11/2021 Findings: Marked cardiomegaly is unchanged. Small right pleural effusion is present. Central vascular congestion is noted. No interstitial lines/septal thickening. No pneumothorax. Impression: 1. New small right pleural effusion. 2. Marked cardiomegaly with central vascular congestion. Dictated by: Dictated on workstation # [id number] Dict: 07/27/211953 Trans: 07/27/212000 [facility] [id number] Interpreted by: AJAY MORRIS MD Electronically signed by: AJAY MORRIS MD 07/27/212000 Reviewed: Reviewed by Me Diagonstic Imaging: Xray Plain Films/CT/US/NM/MRI: hip (r) Comments [facility] [place] NAME: TAJ ELKINS JR [facility] REC#: [id number] PT STATUS: REG ER : 1935 PHYSICIAN: JAY RAMIREZ MD ADMIT DATE: 07/27/21/ER Signed Date of Exam:07/27/21 HIP, RIGHT, 2 VIEWS INDICATION: Right hip pain after fall. COMPARISON: None available. TECHNIQUE: AP and crosstable lateral views of the right hip. FINDINGS: There is an acute transverse fracture in the femoral neck which has mild proximal migration of the femoral shaft resulting in coxa vera deformity. Severe osteoarthritis of the right hip. Osteopenia/osteoporosis. Vascular calcifications are noted. IMPRESSION: Acute fracture of the right femoral neck has mild impaction. Dictated by: Dictated on workstation # [id number] Dict: 07/27/211954 Trans: 07/27/212000 [facility] [id number] Interpreted by: AJAY MORRIS MD Electronically signed by: AJAY MORRIS MD 07/27/212000 Diagonstic Imaging: CT Plain Films/CT/US/NM/MRI: c-spine, head Comments [facility] [place] NAME: TAJ ELKINS [facility] REC#: [id number] PT STATUS: REG ER : 1935 PHYSICIAN: JAY RAMIREZ MD ADMIT DATE: 07/27/21/ER Signed Date of Exam:07/27/21 CT HEAD/CERVICAL SPINE WO PROCEDURE: CT head and CT cervical spine without contrast. TECHNIQUE: Multiple contiguous axial images were obtained through the brain and cervical spine without the use of intravenous contrast. Sagittal and coronal reformations through the cervical spine were then performed. Auto Exposure Controls were utilized during the CT exam to meet ALARA standards for radiation dose reduction. INDICATION: Trauma, fall. COMPARISON: CT head of 11/25/2020. FINDINGS: Head: No intracranial hyperdense hemorrhage or space-occupying mass. No hydrocephalus or midline shift. Global atrophy is present. Old lacunar infarct in the left basal ganglia. Basilar cisterns are widely patent. Paranasal sinuses and mastoid air cells are clear. No skull fracture. Cervical spine: No acute fracture or traumatic malalignment. No high-grade spinal stenosis. No cervical lymphadenopathy. Atherosclerotic plaquing in the carotid bulbs. IMPRESSION: 1. No acute intracranial process or skull fracture. 2. No acute fracture or traumatic malalignment in the cervical spine. Dictated by: Dictated on workstation # [id number] Dict: 07/27/211930 Trans: 07/27/211943 [facility] [phone] Interpreted by: AJAY MORRIS MD Electronically signed by: AJAY MORRIS MD 07/27/211943 Reviewed: Reviewed by Me Departure Communication (Admissions) Time/Spoke to Admitting Phy: 20:[address] Mccain who agrees to admit the patient with consultations to Ortho. [facility] Time/Spoke to Consulting Phy: 20:55 Discussed the case with Dr. Leung who agrees to try and get his hip operated on tomorrow. He would like cardiology to give clearance tomorrow. He just asked that we have Dr. Mckeon consulted in the morning for cardiac clearance. We did discuss the case with Dr. Winters who recommends we marked down for a consult to Dr. Mckeon in the morning. Impression Primary Impression: Fall Qualified Codes: W19.XXXA - Unspecified fall, initial encounter Additional Impressions: Closed right hip fracture Qualified Codes: S72.001A - Fracture of unspecified part of neck of right femur, initial encounter for closed fracture Atrial fibrillation Qualified Codes: I48.0 - Paroxysmal atrial fibrillation Disposition: ADMITTED INPATIENT Condition: Stable Admissions Decision to Admit Reason: Admit from ER (General) Decision to Admit/Date: Jul 27, 2021 Time/Decision to Admit Time: 20:30 Departure-Patient Inst. Referrals: RUBY PAYTON MD (PCP/Family) Primary Care Physician JAY RAMIREZ Jul 27, 2021 19:05
[2021-07-27 19:19] LABS: BASOPHILS % (AUTO) 0 % (0-10); HEMATOCRIT 30 % (40-54); MONOCYTES # (AUTO) 0.4 10^3/uL (0.0-1.0)
[2021-07-27 19:20] LABS: EOSINOPHILS % (AUTO) 1 % (0-10); HEMOGLOBIN 10.1 g/dL (13.3-17.7); LYMPHOCYTES # (AUTO) 1.6 10^3/uL (1.0-4.0); LYMPHOCYTES % (AUTO) 37 % (12-44); MEAN CORPUSCULAR HEMOGLOBIN 35 pg (25-34); MEAN CORPUSCULAR HGB CONC 33 g/dL (32-36); MEAN CORPUSCULAR VOLUME 105 fL (80-99); MEAN PLATELET VOLUME 13.1 fL (9.0-12.2); MONOCYTES % (AUTO) 9 % (0-12); NEUTROPHILS # (AUTO) 2.2 10^3/uL (1.8-7.8); NEUTROPHILS % (AUTO) 53 % (42-75); PLATELET COUNT 110 10^3/uL (130-400); WHITE BLOOD COUNT 4.2 10^3/uL (4.3-11.0)
--- NOTE | 2021-07-27 19:37 | Diagnostic Imaging Report ---
PROCEDURE: CT head and CT cervical spine without contrast. TECHNIQUE: Multiple contiguous axial images were obtained through the brain and cervical spine without the use of intravenous contrast. Sagittal and coronal reformations through the cervical spine were then performed. Auto Exposure Controls were utilized during the CT exam to meet ALARA standards for radiation dose reduction. INDICATION: Trauma, fall. COMPARISON: CT head of 11/25/2020. FINDINGS: Head: No intracranial hyperdense hemorrhage or space-occupying mass. No hydrocephalus or midline shift. Global atrophy is present. Old lacunar infarct in the left basal ganglia. Basilar cisterns are widely patent. Paranasal sinuses and mastoid air cells are clear. No skull fracture. Cervical spine: No acute fracture or traumatic malalignment. No high-grade spinal stenosis. No cervical lymphadenopathy. Atherosclerotic plaquing in the carotid bulbs. IMPRESSION: 1. No acute intracranial process or skull fracture. 2. No acute fracture or traumatic malalignment in the cervical spine. Dictated by: Dictated on workstation # [id number]
[2021-07-27 19:43] LABS: ALBUMIN 3.3 GM/DL (3.2-4.5); BILIRUBIN,TOTAL 1.2 MG/DL (0.1-1.0); CALCIUM 9.4 MG/DL (8.5-10.1); POTASSIUM 3.9 MMOL/L (3.6-5.0); TOTAL PROTEIN 5.7 GM/DL (6.4-8.2)
--- NOTE | 2021-07-27 19:57 | Diagnostic Imaging Report ---
CHEST 1 VIEW, AP/PA ONLY Indication: Fall with right hip pain Comparison: 04/11/2021 Findings: Marked cardiomegaly is unchanged. Small right pleural effusion is present. Central vascular congestion is noted. No interstitial lines/septal thickening. No pneumothorax. Impression: 1. New small right pleural effusion. 2. Marked cardiomegaly with central vascular congestion. Dictated by: Dictated on workstation # [id number]
--- NOTE | 2021-07-27 19:59 | Diagnostic Imaging Report ---
INDICATION: Right hip pain after fall. COMPARISON: None available. TECHNIQUE: AP and crosstable lateral views of the right hip. FINDINGS: There is an acute transverse fracture in the femoral neck which has mild proximal migration of the femoral shaft resulting in coxa vera deformity. Severe osteoarthritis of the right hip. Osteopenia/osteoporosis. Vascular calcifications are noted. IMPRESSION: Acute fracture of the right femoral neck has mild impaction. Dictated by: Dictated on workstation # [id number]
[2021-07-27 20:12] LABS: CREATININE SERUM 0.7 MG/DL (0.60-1.30)
[2021-07-27] MEDS ORDERED: morphine INJ 10 MG/ML 1ML (SYR OR VIAL) IVP STA (20:36)
[2021-07-27 20:56] LABS: BILIRUBIN,URINE NEGATIVE (NEGATIVE); CLARITY,URINE CLEAR; COLOR,URINE YELLOW; GLUCOSE, URINE (UA) NEGATIVE (NEGATIVE); KETONES,URINE NEGATIVE (NEGATIVE); LEUKOCYTE ESTERASE ,URINE NEGATIVE (NEGATIVE); NITRITE,URINE NEGATIVE (NEGATIVE); PROTEIN,URINE NEGATIVE (NEGATIVE)
[2021-07-27 21:04] LABS: AMORPHOUS SEDIMENT,UR FEW AMOR PHOSPHATE /LPF; BACTERIA,URINE NEGATIVE /HPF; CALCIUM OXALATE CRYSTALS,UR FEW /LPF; SQUAMOUS EPITHELIAL CELL,UR RARE /HPF
[2021-07-27 22:19] VITALS: BP 128/69
[2021-07-27] MEDS ORDERED: ONDANSETRON 4 MG/2 ML (SDV) Z0FRAN IV PRN (22:30)
[2021-07-27] MEDS ORDERED: fentaNYL INJ 100 MCG/2 ML AMP IV PRN (22:30)
[2021-07-27] MEDS: LACTATED RINGERS 1,000 ML IV SCH (22:46)
[2021-07-27] MEDS: morphine INJ 4 MG/ML 1 ML (VIAL/SYRINGE) IV PRN (22:47)
[2021-07-28] VITALS (15 sets, daily range): BP systolic 90–131; BP diastolic 50–83
[2021-07-28 05:17] LABS: BASOPHILS % (AUTO) 0 % (0-10); EOSINOPHILS % (AUTO) 0 % (0-10); HEMATOCRIT 30 % (40-54); HEMOGLOBIN 9.8 g/dL (13.3-17.7); LYMPHOCYTES # (AUTO) 1.4 10^3/uL (1.0-4.0); LYMPHOCYTES % (AUTO) 31 % (12-44); MEAN CORPUSCULAR HEMOGLOBIN 35 pg (25-34); MEAN CORPUSCULAR HGB CONC 33 g/dL (32-36); MEAN CORPUSCULAR VOLUME 107 fL (80-99); MEAN PLATELET VOLUME 13.2 fL (9.0-12.2); MONOCYTES # (AUTO) 0.4 10^3/uL (0.0-1.0); MONOCYTES % (AUTO) 8 % (0-12); NEUTROPHILS # (AUTO) 2.7 10^3/uL (1.8-7.8); NEUTROPHILS % (AUTO) 60 % (42-75); PLATELET COUNT 107 10^3/uL (130-400); WHITE BLOOD COUNT 4.5 10^3/uL (4.3-11.0)
[2021-07-28 05:48] LABS: POTASSIUM 4.3 MMOL/L (3.6-5.0)
[2021-07-28 05:49] LABS: CALCIUM 8.9 MG/DL (8.5-10.1)
[2021-07-28 05:54] LABS: CREATININE SERUM 0.64 MG/DL (0.60-1.30)
--- NOTE | 2021-07-28 07:45 | Progress Note-Pre Operative ---
Pre-Operative Progress Note H&P Reviewed The H&P was reviewed, patient examined and no changes noted. Date Seen by Provider: Jul 28, 2021 Time Seen by Provider: 07:44 Date H&P Reviewed: Jul 28, 2021 Time H&P Reviewed: 07:44 Pre-Operative Diagnosis: right femoral neck fracture closed, displaced TOMAS COX MD Jul 28, 2021 07:45
--- NOTE | 2021-07-28 07:46 | Progress Note-Post Operative ---
Post-Operative Progess Note Surgeon (s)/Shop Hand (s) Surgeon TOMAS COX MD Shop Hand: Jass Corrales Pre-Operative Diagnosis right femoral neck fracture closed, displaced Post-Operative Diagnosis right femoral neck fracture closed, displaced Procedure & Operative Findings Date of Procedure 07/28/21 Procedure Performed/Findings right hip bipolar replacement Anesthesia Type GETA Estimated Blood Loss Estimated blood loss (mL): 150 ml Specimens/Packing Specimens Removed femoral head Packing: none TOMAS COX MD Jul 28, 2021 07:46
--- NOTE | 2021-07-28 08:07 | Consultation-Cardiology ---
HPI-Cardiology Cardiology Consultation: Date of Consultation 07/28/21 Date of Admission 07-27-21 Attending Physician Guzman Mccain MD Admitting Physician Elieser Peraza MD Consulting Physician Alvina Winters MD HPI: Chief Complaint: A-fib, chronic Review of Systems-Cardiology All Other Systems Reviewed Negative Unless Noted: Yes OSB-Dphucb-Vtgiem Hx Patient Social History Smoking Status: Former Smoker Former smoker/When Quit: Nov 20, 1977 Have you traveled recently?: No Alcohol Use?: No Pt feels they are or have been: No Immunizations Up To Date Tetanus Booster (TDap): Unknown Date of Pneumonia Vaccine: Jul 29, 2020 Date of Influenza Vaccine: Aug 20, 2020 Past Medical History PMH As described under Assessment. Family Medical History Family Medical History: Denies any family h/o CAD or CVA. Reports mother had HTN. Family History: Patient reports no known family medical history. Allergies and Home Medications Allergies Coded Allergies: Yajaovs-Env-Gyj Reductase Inhibitor (Unverified Allergy, Unknown, 03/12/19) codeine (Unverified Adverse Reaction, Mild, Altered taste, 02/13/15) Uncoded Allergies: beta blockers (Adverse Reaction, Severe, severe bradycardia, 04/07/20) Patient Home Medication List Acetaminophen (Tylenol Extra Strength) 500 Mg Tablet, 1,000 MG PO Q8H PRN for PAIN-MILD (1-4), (Reported) Entered as Reported by: ERICA ENG on 05/18/21 0849 Last Action: Reviewed Apixaban (Eliquis) 5 Mg Tablet, 5 MG PO BID, (Reported) Entered as Reported by: VARINDER APONTE on 10/23/17 1723 Last Action: Reviewed Aspirin (Aspirin EC) 81 Mg Tablet.dr, 81 MG PO 1200, (Reported) Entered as Reported by: ESTELLA FLORES on 03/11/19 0936 Last Action: Reviewed Diltiazem HCl (Tiazac) 120 Mg Capsule.er, 120 MG PO DAILY, (Reported) Entered as Reported by: ERICA ENG on 07/28/21 112 Last Action: Reviewed Diltiazem HCl (Tiazac) 120 Mg Capsule.er, 240 MG PO 1600 W/DINNER, (Reported) Entered as Reported by: ERICA ENG on 07/28/21 112 Last Action: Reviewed Docusate Sodium (Stool Softener) 100 Mg Capsule, 100-200 MG PO DAILY PRN for CONSTIPATION-1ST LINE, (Reported) Entered as Reported by: ERICA ENG on 04/07/20 1054 Last Action: Reviewed Furosemide (Furosemide) 40 Mg Tablet, 40 MG PO DAILY, (Reported) Entered as Reported by: ERICA ENG on 07/28/211100 Last Action: Reviewed Multivit-Min/FA/Lycopene/Lut (Centrum Silver Tablet) 1 Each Tablet, 1 EACH PO 1200, (Reported) Entered as Reported by: ERICA ENG on 07/28/211100 Last Action: Reviewed Potassium Chloride (Potassium Chloride) 20 Meq Tab.er.prt, 20 MEQ PO 1200, (Reported) Entered as Reported by: ERICA ENG on 07/28/211100 Last Action: Reviewed Tramadol HCl (Tramadol HCl) 50 Mg Tablet, 50 MG PO TID PRN for PAIN-MODERATE (5- 7), (Reported) Entered as Reported by: ERICA ENG on 05/18/21 0849 Last Action: Reviewed Discontinued Medications Furosemide (Furosemide) 40 Mg Tablet, 40 MG PO DAILY Discontinued Reason: No Longer Taking Prescribed by: CAITLYN SANTILLAN on 05/19/21917 Last Action: Discontinued Multivit-Min/FA/Lycopen/Lutein (Centravites 50 Plus Tablet) 1 Each Tablet, 1 EACH PO DAILY, (Reported) Discontinued Reason: Prescription changed Entered as Reported by: ERICA ENG on 04/07/20 1053 Potassium Chloride (Potassium Chloride) 20 Meq Tablet.er, 20 MEQ PO DAILY Discontinued Reason: No Longer Taking Prescribed by: CAITLYN SANTILLAN on 05/19/21917 Last Action: Discontinued Physical Exam-Cardiology Physical Exam Vital Signs/I&O 07/28/21 07/28/21 07/29/21 07/29/21 20:19 20:29 00:00 01:00 Temp 36.8 37.2 Pulse 104 101 140 Resp 18 20 B/P (MAP) 110/50 (70) 110/76 (87) Pulse Ox 98 97 O2 Delivery Nasal Cannula Nasal Cannula Nasal Cannula O2 Flow Rate 2.00 2.00 2.00 07/29/21 07/29/21 03:33 07:23 Temp 37.0 37.2 Pulse 118 120 Resp 20 20 B/P (MAP) 107/61 (76) 148/66 (93) Pulse Ox 95 96 O2 Delivery Nasal Cannula Nasal Cannula O2 Flow Rate 2.00 3.00 07/29/21 00:00 Intake Total 125 ml Output Total 450 ml Balance -325 ml Capillary Refill : Less Than 3 Seconds Data Review Labs Laboratory Tests 07/28/21 20:17: Hemoglobin 8.3L, Hematocrit 26L 07/28/21 20:43: Glucometer 156H 07/29/21 05:25: Hemoglobin 8.2L, Hematocrit 25L, White Blood Count 5.5, Red Blood Count 2.30L, Mean Corpuscular Volume 110H, Mean Corpuscular Hemoglobin 36H, Mean Corpuscular Hemoglobin Concent 32, Red Cell Distribution Width 16.6H, Platelet Count 132, Mean Platelet Volume 13.0H, Immature Granulocyte % (Auto) 1, Neutrophils (%) (Auto) 67, Lymphocytes (%) (Auto) 20, Monocytes (%) (Auto) 11, Eosinophils (%) (Auto) 0, Basophils (%) (Auto) 0, Neutrophils # (Auto) 3.7, Lymphocytes # (Auto) 1.1, Monocytes # (Auto) 0.6, Eosinophils # (Auto) 0.0, Basophils # (Auto) 0.0, Immature Granulocyte # (Auto) 0.1, Sodium Level 137, Potassium Level 5.6H, Chlor markel Level 106, Carbon Dioxide Level 18L, Anion Gap 13, Blood Urea Nitrogen 19H, Creatinine 1.79H, Estimat Glomerular Filtration Rate 36, BUN/Creatinine Ratio 11, Glucose Level 142H, Calcium Level 9.1, Corrected Calcium 10.0, Total Bilirubin 1.7H, Aspartate Amino Transf (AST/SGOT) 61H, Alanine Aminotransferase (ALT/SGPT) 57H, Alkaline Phosphatase 42, Total Protein 5.2L, Albumin 2.9L Radiology NAME: TAJ ELKINS MED REC#: [id number] PT STATUS: REG ER : 1935 PHYSICIAN: JAY RAMIREZ MD ADMIT DATE: 07/27/21/ER Signed Date of Exam:07/27/21 CHEST 1 VIEW, AP/PA ONLY CHEST 1 VIEW, AP/PA ONLY Indication: Fall with right hip pain Comparison: 04/11/2021 Findings: Marked cardiomegaly is unchanged. Small right pleural effusion is present. Central vascular congestion is noted. No interstitial lines/septal thickening. No pneumothorax. Impression: 1. New small right pleural effusion. 2. Marked cardiomegaly with central vascular congestion. Dictated by: Dictated on workstation # [id number] Dict: 07/27/211953 Trans: 07/27/212000 [facility] [id number] Interpreted by: AJAY MORRIS MD Electronically signed by: AJAY MORRIS MD 07/27/212000 A/P-Cardiology Assessment/Admission Diagnosis S/P non-syncopal fall leading to right hip fracture Nonsyncopal fall - leading to left hip fracture on 11-18-2020, treated with femoral neck fixation on 11/19/[address] Petit - recurrent fall on 07-27-21 leading to right hip fracture, being treated with right hip bipolar replacement by Dr. Leung on 07-28-21 Chronic A Fib - Long-acting dilt for rate control. 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 - Last cath was on 05/20/14. It showed diffuse disease consisting of up to 50% stenoses in all cors. FFR across multiple mid-vessel LAD lesions was 0.92, indicating hemodynamic insignificance. There was a patent stent in mid LAD and in distal RCA. Distal RCA stent is known to be Promus 2.5x12 placed in Aug 2012. LVEF on cath of May 2014 was 45% and LVEDP was mildly elevated Hyperlipidemia - but the patient is intolerant to statins. H/O Postural hypotension - resolved following cessation of therapy with RYAN inhibitors and Terazosin. Multiple medication intolerances. See below. - Intolerance to beta-blockers on account of symptomatic bradycardia and hypotension. - Intolerance to RYAN inhibitors on account of postural hypotension - Intolerance to ARBs on account of dizziness. - Intolerance to statins - Intolerance to warfarin due to nonspecific symptoms and fear of side effects - has tolerated apixaban Carotid dz - Mild carotid arterial disease (less than 40%) per carotid ultrasonography of May 2016. Chronic moderate vertigo. Chronic low back pain - s/p low low back kyphoplasty, but back pain has persisted CAITLYN SANTILLAN [facility] Jul 28, 2021 08:07
[2021-07-28] MEDS: morphine INJ 4 MG/ML 1 ML (VIAL/SYRINGE) IV PRN (08:16)
[2021-07-28] MEDS ORDERED: ROCURONIUM 10 MG/ML 5 ML SYRINGE IV ONE (08:17)
[2021-07-28] MEDS ORDERED: LIDOCAINE PF 2% 5 ML (XYLOCAINE) VIAL ONE (08:17)
[2021-07-28] MEDS ORDERED: proPOfol 200 MG/20 ML (DIPRIVAN) VIAL IV ONE (08:17)
[2021-07-28] MEDS ORDERED: ONDANSETRON 4 MG/2 ML (SDV) Z0FRAN ONE (08:17)
[2021-07-28] MEDS ORDERED: fentaNYL INJ 100 MCG/2 ML AMP ONE (08:18)
[2021-07-28] MEDS: LACTATED RINGERS 1,000 ML IV PRN ×2 (08:21→09:35)
[2021-07-28] MEDS ORDERED: ceFAZolin 2 GM IV Premixed 50 ML ONE (08:27)
[2021-07-28] MEDS ORDERED: diphenhydrAMINE 50 MG/ML INJ (BENADRYL) IVP PRN (08:30)
[2021-07-28] MEDS ORDERED: ACETAMINOPHEN 325 MG TABLET PO PRN (08:30)
[2021-07-28] MEDS ORDERED: ONDANSETRON 4 MG/2 ML (SDV) Z0FRAN IVP PRN ×2 (08:30→10:15)
[2021-07-28] MEDS ORDERED: TEMAZEPAM 15 MG (RESTORIL) CAP PO PRN (08:30)
[2021-07-28] MEDS ORDERED: PHENYLEPHRINE 100 MCG/ML 10 ML (ANESTHESIA) SYR ONE (08:42)
--- NOTE | 2021-07-28 08:44 | CONSULTATION REPORT ---
DATE OF SERVICE: 07/28/2021 INPATIENT CONSULTATION REASON FOR CONSULTATION: Right femoral neck fracture. HISTORY: The patient is an 86-year-old gentleman who fell at home while ambulating with his walker. He reports that his legs gave out from underneath him. He was found to have a displaced femoral neck fracture. PAST MEDICAL HISTORY: Significant for atrial fibrillation and he previously undergone left hip internal fixation for an intertrochanteric femur fracture in October. The patient reports no antecedent pain. ALLERGIES: STATINS AND CODEINE. MEDICATIONS: Acetaminophen, Eliquis, aspirin, diltiazem, furosemide, potassium, tramadol. PAST SURGICAL HISTORY: Coronary stent, left hip and bowel resection. PAST MEDICAL HISTORY: Significant for hypercholesterolemia, hypertension, coronary artery disease and atrial fibrillation. FAMILY HISTORY: Noncontributory. PHYSICAL EXAMINATION: GENERAL: The patient is well developed, well nourished, in minimal distress. EXTREMITIES: Right lower extremity is slightly shortened and externally rotated. He has symmetric pulses. He has intact dorsiflexion and plantarflexion of the toes. No skin lesions noted. He is tender on the lateral aspect of his right hip. Radiographs reveal displaced right femoral neck fracture. IMPRESSION: Displaced right femoral neck fracture. PLAN: Right hip bipolar replacement. Discussed risks, benefits, options, ramifications and recovery with the patient. He understands and wishes to proceed. Job ID: [id number] DocumentID: [id number] Dictated Date: 07/28/2021 07:48:58 Miner Placer Date: 07/28/2021 08:24:43 Dictated By: TOMAS COX MD
[2021-07-28] MEDS ORDERED: ceFAZolin 2 GM IV Premixed 50 ML IV ONE (09:00)
[2021-07-28] MEDS: SENNOSIDES 8.6 MG (SENOKOT) TAB PO SCH ×2 (09:00→21:08)
--- NOTE | 2021-07-28 09:12 | History & Physical-Hospitalist ---
History of Present Illness HPI/Chief Complaint Patient is an 86-year-old male with past medical history of atrial fibrillation, DVT, coronary artery disease status post stenting, hypertension, hyperlipidemia, stroke who presented to the emergency department after a fall. He reports his legs gave out on him and he fell onto his right hip. EMS was summoned due to his pain and inability to move. In the emergency room he was found to have a right hip fracture and has been admitted for operative care later today. This morning he complains of pain and is requesting a pain shot. He is also preemptively apologizing for "cussing everyone out" because he knows he will be in very severe pain and thinks he will be unable to control his temper. Source: patient Date Seen 07/28/21 Time Seen by a Provider: 09:04 Attending Physician Guzman Mccain MD PCP Elieser Peraza MD Referring Physician Date of Admission Jul 27, 2021 at 21:00 Home Medications & Allergies Home Medications Reviewed patient Home Medication Reconciliation performed by pharmacy medication reconciliations extractions technician and/or nursing. Patients Allergies have been reviewed. Allergies Allergies Coded Allergies Zddddvu-Lwf-Jgt Reductase Inhibitor (Unverified Allergy, Unknown, 03/12/19) codeine (Unverified Adverse Reaction, Mild, Altered taste, 02/13/15) Uncoded Allergies beta blockers ( Adverse Reaction, Severe, severe bradycardia, 04/07/20) Past Olpmvsc-Wdeajf-Mualpk Hx Patient Social History Marrital Status: Employed/Student: retired Tobacco Use?: No Smoking Status: Former Smoker Smokeless Tobacco Frequency: Never a User Use of E-Cig and/or Vaping dev: No Substance use?: No Alcohol Use?: No Pt feels they are or have been: No Immunizations Up To Date Date of Influenza Vaccine: Aug 20, 2020 First/Initial COVID19 Vaccinat: Yes-unknown date Second COVID19 Vaccination Donald: Yes-unknown date Tetanus Booster (TDap): Less Than 5 Years Hepatitis A: No Hepatitis B: No PED Vaccines UTD: No Date of Pneumonia Vaccine: Jul 29, 2020 Seasonal Allergies Seasonal Allergies: No Current Status Advance Directives: No Communicates: Verbally Primary Language: Bengali Preferred Spoken Language: Bengali Is interpretation needed?: No Sensory deficits: Vision impairment Implanted or Applied Medical D: Orthopedic hardware, Stents Past Medical History Surgeries: Bowel Surgery, Coronary Stent, Orthopedic Atrial Fibrillation, Deep Vein Thrombosis, Heart Attack, High Cholesterol, Hypertension Stroke, Vertigo Benign Prostatic Hyperpl Polyps Chronic Back Pain Anxiety Blood Disorders: No Adverse Reaction/Blood Tranf: No Family Medical History Patient reports no known family medical history. No Pertinent Family Hx Review of Systems Constitutional: No chills, No fever EENTM: no symptoms reported Respiratory: No cough, No short of breath Cardiovascular: No chest pain, No edema; Hx of Intervention; No syncope Gastrointestinal: No abdominal pain, No constipation, No diarrhea, No nausea, No vomiting Genitourinary: no symptoms reported Musculoskeletal: see HPI Skin: no symptoms reported Psychiatric/Neurological: No Symptoms Reported Physical Exam Physical Exam Vital Signs Vital Signs - First Documented 07/27/21 07/27/21 18:52 23:50 Temp 35.9 Pulse 126 Resp 16 B/P (MAP) 128/88 (101) Pulse Ox 95 O2 Delivery Room Air O2 Flow Rate 2.00 Capillary Refill : Less Than 3 Seconds Height, Weight, BMI Height: 6'2.00" Weight: 163lbs. 2.0oz. 73.345093oc; 17.17 BMI Method:Stated General Appearance: No Apparent Distress, Chronically ill, Thin HEENT: PERRL/EOMI, Moist Mucous Membranes; No Scleral Icterus (L), No Scleral Icterus (R) Neck: Normal Inspection, Supple Respiratory: No Accessory Muscle Use, Decreased Breath Sounds, Other (on 3lpm ) Cardiovascular: Regular Rate, Rhythm, No Murmur Gastrointestinal: Normal Bowel Sounds, Non Tender, Soft Genital/Rectal: Other (thornton in place) Extremity: No Calf Tenderness, No Pedal Edema Neurologic/Psychiatric: Alert, Oriented x3, Normal Mood/Affect Skin: Normal Color, Warm/Dry Results Results/Procedures Labs Laboratory Tests 07/27/21 19:12 07/28/21 05:05 Patient resulted labs reviewed. Imaging: Reviewed Imaging Report Imaging [facility], [place] NAME: TAJ ELKINS JR [facility] REC#: [id number] PT STATUS: REG ER : 1935 PHYSICIAN: JAY RAMIREZ MD ADMIT DATE: 07/27/21/ER Signed Date of Exam:07/27/21 HIP, RIGHT, 2 VIEWS INDICATION: Right hip pain after fall. COMPARISON: None available. TECHNIQUE: AP and crosstable lateral views of the right hip. FINDINGS: There is an acute transverse fracture in the femoral neck which has mild proximal migration of the femoral shaft resulting in coxa vera deformity. Severe osteoarthritis of the right hip. Osteopenia/osteoporosis. Vascular calcifications are noted. IMPRESSION: Acute fracture of the right femoral neck has mild impaction. Dictated by: Dictated on workstation # [id number] Dict: 07/27/211954 Trans: 07/27/212000 [facility] [id number] Interpreted by: AJAY MORRIS MD Electronically signed by: AJAY MORRIS MD 07/27/212000 [facility] [place] NAME: TAJ ELKINS [facility] REC#: [id number] PT STATUS: REG ER : 1935 PHYSICIAN: JAY RAMIREZ MD ADMIT DATE: 07/27/21/ER Signed Date of Exam:07/27/21 CT HEAD/CERVICAL SPINE WO PROCEDURE: CT head and CT cervical spine without contrast. TECHNIQUE: Multiple contiguous axial images were obtained through the brain and cervical spine without the use of intravenous contrast. Sagittal and coronal reformations through the cervical spine were then performed. Auto Exposure Controls were utilized during the CT exam to meet ALARA standards for radiation dose reduction. INDICATION: Trauma, fall. COMPARISON: CT head of 11/25/2020. FINDINGS: Head: No intracranial hyperdense hemorrhage or space-occupying mass. No hydrocephalus or midline shift. Global atrophy is present. Old lacunar infarct in the left basal ganglia. Basilar cisterns are widely patent. Paranasal sinuses and mastoid air cells are clear. No skull fracture. Cervical spine: No acute fracture or traumatic malalignment. No high-grade spinal stenosis. No cervical lymphadenopathy. Atherosclerotic plaquing in the carotid bulbs. IMPRESSION: 1. No acute intracranial process or skull fracture. 2. No acute fracture or traumatic malalignment in the cervical spine. Dictated by: Dictated on workstation # [id number] Dict: 07/27/211930 Trans: 07/27/211943 [facility] [id number] Interpreted by: AJAY MORRIS MD Electronically signed by: AJAY MORRIS MD 07/27/211943 [facility] [place], [place] NAME: TAJ ELKINS JR [facility] REC#: [id number] PT STATUS: REG ER : 1935 PHYSICIAN: JAY RAMIREZ MD ADMIT DATE: 07/27/21/ER Signed Date of Exam:07/27/21 CHEST 1 VIEW, AP/PA ONLY CHEST 1 VIEW, AP/PA ONLY Indication: Fall with right hip pain Comparison: 04/11/2021 Findings: Marked cardiomegaly is unchanged. Small right pleural effusion is present. Central vascular congestion is noted. No interstitial lines/septal thickening. No pneumothorax. Impression: 1. New small right pleural effusion. 2. Marked cardiomegaly with central vascular congestion. Dictated by: Dictated on workstation # [id number] Dict: 07/27/211953 Trans: 07/27/212000 [facility] [id number] Interpreted by: AJAY MORRIS MD Electronically signed by: AJAY MORRIS MD 07/27/212000 Assessment/Plan Admission Diagnosis Right hip fracture Admission Status: Inpatient Order (span 2 midnights) Reason for Inpatient Admission: see below Assessment and Plan Right hip fracture Falls Debility Plan for OR today with Dr Leung Anesthesia presented to bedside at the end of my exam Cardiology consulted for preoperative evaluation Per NSQIP calculator at 2.0% risk for cardiac complication and high risk for DC to SNF Seems reasonable to proceed with intermittant risk surgery given profound debility that would come from nonoperative management Continue pain regimen PT/OT post op A-fib with RVR- now resolved Noncompliance Dilated cardiomyopathy, EF 5/20- 15-20% Mitral regurgitation Tricupsid regurgiation CAD Long standing a fib Rate was 126 on arrival but improved on its own Cardiology consulted, appreciate recs Continue home meds when able He is unsure of the timing of his last dose of eliquis Monitor on telemetry DVT ppx: held for surgery ION CONCEPCION MD Jul 28, 2021 09:12
[2021-07-28] MEDS ORDERED: SEVOFLURANE (ULTANE) 15 ML INHAL SOLN ONE (09:47)
[2021-07-28] MEDS ORDERED: NEOSTIGMINE 3 MG/3 ML VIAL ONE (09:47)
[2021-07-28] MEDS ORDERED: GLYCOPYRROLATE 0.2 MG/ML (ROBINUL) 2 ML VIAL ONE (09:47)
[2021-07-28] MEDS ORDERED: morphine INJ 10 MG/ML 1ML (SYR OR VIAL) IVP ONE (10:15)
[2021-07-28] MEDS ORDERED: MEPERIDINE (DEMEROL) INJ 50 MG/ML IVP ONE (10:15)
--- NOTE | 2021-07-28 10:20 | Progress Note ---
Standard Progress Note Progress Notes/Assess & Plan Date Seen by a Provider: Jul 28, 2021 Time Seen by a Provider: 10:19 Progress/Assessment & Plan post op check Radiographs--HW well positioned without fracture RLE--1 plus DP pulse with brisk cap refill intact DF and PF of toes and ankle with intact sensation to light touch throughout s/p R hip bipolar mobilize as able TOMAS COX MD Jul 28, 2021 10:20
[2021-07-28] MEDS ORDERED: POTA20TA15 PO ×2 (11:01)
[2021-07-28] MEDS ORDERED: MULT-1029 PO ×2 (11:01)
[2021-07-28] MEDS ORDERED: FURO40TA4 PO ×2 (11:01)
[2021-07-28] MEDS ORDERED: DILT-8 PO ×4 (11:22)
--- NOTE | 2021-07-28 12:39 | Diagnostic Imaging Report ---
INDICATION: Postop right hip arthroplasty. AP and lateral views of the right hip are obtained and compared with 07/27/2021 FINDINGS: Compared to the prior study, there is a new right hip prosthesis. Device appears in good alignment. There is no acute fracture or device loosening. There is no unexpected foreign body post surgery. IMPRESSION: Well aligned right hip prosthesis with no acute abnormality. Dictated by: Dictated on workstation # [id number]
--- NOTE | 2021-07-28 13:40 | OPERATIVE REPORT ---
DATE OF SERVICE: 07/28/2021 PREOPERATIVE DIAGNOSIS: Displaced right femoral neck fracture. POSTOPERATIVE DIAGNOSIS: Displaced right femoral neck fracture. PROCEDURE: Right hip bipolar replacement. SURGEON: Jaylon Leung MD EXECUTIVE ADMINISTRATIVE ASSISTANT: Jass Corrales, who assisted throughout the procedure and closed the incision. ANESTHESIA: General endotracheal by Liban Patel CRNA. ESTIMATED BLOOD LOSS: 150 mL. DRAINS: None. COMPLICATIONS: None. POSTOPERATIVE PLAN: Routine hip protocol with weightbearing as tolerated. The patient was transferred to the recovery room awake and in stable condition. MATERIALS: Synthes pressfit size 10 stem with a 53 mm head/liner and +5 neck. STATEMENT OF MEDICAL NECESSITY: The patient is an 86-year-old gentleman who fell yesterday while ambulating at home. He was found to have a displaced right femoral neck fracture. The patient was counseled regarding treatment options and elected to proceed with operative intervention. DESCRIPTION OF PROCEDURE: After risks and benefits of procedure were discussed and questions were answered, an informed consent was signed and placed on chart, the operative site was confirmed in the preoperative holding area initialed by the surgeon. The patient was then transferred to the operating room and after adequate levels of general endotracheal anesthetic were obtained, a timeout was called, confirming the operative site. The patient was carefully placed in the left lateral decubitus position with careful to place an axillary roll and pad all bony prominences. The right hip and lower extremity was prepped and draped in the usual sterile fashion. A longitudinal incision was made over the greater trochanter extending distally and proximally. The iliotibial band was incised in line with the incision. Hemostasis was obtained with cautery. The abductor insertion was released leaving 1 cm cuff for later reattachment. Hip capsulotomy was performed. The femoral neck cut was made using the template as a guide. The femoral head was removed and sized to a size 53. The 53 trial was placed and had excellent coverage in the acetabulum. The acetabulum was irrigated. No loose bodies were noted. The femur was then prepared with a box chisel followed by the T-handle reamer and sequential broaches up to a size 10. The 10 broach provided good fill. No fracture lines were noted. The standard neck was placed with a 53 liner/head. The hip was reduced and found to be stable in all planes with no impingement noted. The trials were removed. The joint was irrigated with pulse lavage. The stem was placed in 15 degrees of anteversion. This was then further irrigated. The acetabulum was inspected with no loose bodies noted. The head and liner were then placed, and the hip was reduced. Hip was taken through range of motion with no impingement noted. Full range of motion was noted with no instability noted. The joint was further irrigated with pulse lavage. The capsule and abductor were reapproximated with #5 Tevdek in pjrvyq-qd-pajxu interrupted fashion. The wound was further irrigated. The iliotibial band was closed in a running fashion with #1 Vicryl. The wound was further irrigated, 0 Vicryl was used to deep subcutaneous tissue, 2-0 Vicryl for the superficial subcutaneous tissue, padma used on the skin. A soft dressing and abduction pillow were applied. The patient was transferred to the recovery room awake and in stable condition. Job ID: [id number] DocumentID: [id number] Dictated Date: 07/28/2021 10:04:00 Retirement Manager Date: 07/28/2021 13:38:28 Dictated By: JAYLON LEUNG MD
--- NOTE | 2021-07-28 13:58 | Physical Therapy Progress Note ---
Therapy Progress Note Attempted to see patient for PT evaluation. Patient adamantly refused stating "I'm too [id number]$ing tired". Educated patient on potential of bed sores, CVT and loss of strength/function if he did not move. Patient states "I'm already ahead of you on that" however did not elaborate. Patients family in the room. Nurse notified. Will attempt evaluation again tomorrow as patient will participate. LA NENA NUR PT Jul 28, 2021 13:58
[2021-07-28] MEDS: fentaNYL INJ 100 MCG/2 ML AMP IVP PRN ×2 (16:25→18:14)
[2021-07-28] MEDS: CEFUROXIME INJECTION 750 MG in WATER (STERILE) FOR INJECTION 10 ML IV SCH (16:28)
--- NOTE | 2021-07-28 17:34 | Consultation-Cardiology ---
HPI-Cardiology Cardiology Consultation: Date of Consultation 07/28/21 Time Seen by a Provider: 16:50 Date of Admission Attending Physician Guzman Mccain MD Admitting Physician Elieser Peraza MD Consulting Physician UZIEL SHEEHAN MD, MA, FACP, FACC, FSCAI, CCDS HPI: Chief Complaint: A-fib, chronic HPI 86 yo man with nonsyncopal fall and R femoral neck fracture for which he has undergone surgery today. Currently appears somewhat confused after getting pain meds for discomfort at surgical site. History is not reliable. Does not report any cp or palp or syncope or shortness of breath. Review of Systems-Cardiology Review of Systems Constitutional: other (Currently appears somewhat confused after getting pain meds for discomfort at surgical site. Cannot provide a reliable ROS) All Other Systems Reviewed Negative Unless Noted: Yes [id number] Hx Patient Social History Marrital Status: Employed/Student: retired Smoking Status: Former Smoker Former smoker/When Quit: Nov 20, 1977 Have you traveled recently?: No Alcohol Use?: No Pt feels they are or have been: No Immunizations Up To Date Tetanus Booster (TDap): Unknown Date of Pneumonia Vaccine: Jul 29, 2020 Date of Influenza Vaccine: Aug 20, 2020 Past Medical History PMH As described under Assessment. Family Medical History Family Medical History: Denies any family h/o CAD or CVA. Reports mother had HTN. Family History: Patient reports no known family medical history. Allergies and Home Medications Allergies Coded Allergies: Qgichxi-Jht-Nbm Reductase Inhibitor (Unverified Allergy, Unknown, 03/12/19) codeine (Unverified Adverse Reaction, Mild, Altered taste, 02/13/15) Uncoded Allergies: beta blockers (Adverse Reaction, Severe, severe bradycardia, 04/07/20) Patient Home Medication List Home Medication List Reviewed: Yes Acetaminophen (Tylenol Extra Strength) 500 Mg Tablet, 1,000 MG PO Q8H PRN for PAIN-MILD (1-4), (Reported) Entered as Reported by: ERICA ENG on 05/18/21 0871 Last Action: Reviewed Apixaban (Eliquis) 5 Mg Tablet, 5 MG PO BID, (Reported) Entered as Reported by: VARINDER APONTE on 10/23/17 1723 Last Action: Reviewed Aspirin (Aspirin EC) 81 Mg Tablet.dr, 81 MG PO 1200, (Reported) Entered as Reported by: ESTELLA FLORES on 03/11/19 0936 Last Action: Reviewed Diltiazem HCl (Tiazac) 120 Mg Capsule.er, 120 MG PO DAILY, (Reported) Entered as Reported by: ERICA ENG on 07/28/211121 Last Action: Reviewed Diltiazem HCl (Tiazac) 120 Mg Capsule.er, 240 MG PO 1600 W/DINNER, (Reported) Entered as Reported by: ERICA ENG on 07/28/21 112 Last Action: Reviewed Docusate Sodium (Stool Softener) 100 Mg Capsule, 100-200 MG PO DAILY PRN for CONSTIPATION-1ST LINE, (Reported) Entered as Reported by: ERICA ENG on 04/07/20 1054 Last Action: Reviewed Furosemide (Furosemide) 40 Mg Tablet, 40 MG PO DAILY, (Reported) Entered as Reported by: ERICA ENG on 07/28/211100 Last Action: Reviewed Multivit-Min/FA/Lycopene/Lut (Centrum Silver Tablet) 1 Each Tablet, 1 EACH PO 1200, (Reported) Entered as Reported by: ERICA ENG on 07/28/211100 Last Action: Reviewed Potassium Chloride (Potassium Chloride) 20 Meq Tab.er.prt, 20 MEQ PO 1200, (Reported) Entered as Reported by: ERICA ENG on 07/28/211100 Last Action: Reviewed Tramadol HCl (Tramadol HCl) 50 Mg Tablet, 50 MG PO TID PRN for PAIN-MODERATE (5- 7), (Reported) Entered as Reported by: ERICA ENG on 05/18/21 0849 Last Action: Reviewed Discontinued Medications Furosemide (Furosemide) 40 Mg Tablet, 40 MG PO DAILY Discontinued Reason: No Longer Taking Prescribed by: CAITLYN SANTILLAN on 05/19/21917 Last Action: Discontinued Multivit-Min/FA/Lycopen/Lutein (Centravites 50 Plus Tablet) 1 Each Tablet, 1 EACH PO DAILY, (Reported) Discontinued Reason: Prescription changed Entered as Reported by: ERICA ENG on 04/07/20 105 Potassium Chloride (Potassium Chloride) 20 Meq Tablet.er, 20 MEQ PO DAILY Discontinued Reason: No Longer Taking Prescribed by: CAITLYN SANTILLAN on 05/19/21917 Last Action: Discontinued Physical Exam-Cardiology Physical Exam Vital Signs/I&O 07/28/21 07/28/21 07/28/21 07/28/21 06:22 07:26 07:54 08:00 Temp 37.0 Pulse 87 91 Resp 18 B/P (MAP) 128/66 (86) Pulse Ox 97 94 O2 Delivery Nasal Cannula Nasal Cannula Nasal Cannula O2 Flow Rate 3.00 3.00 2.00 07/28/21 07/28/21 07/28/21 07/28/21 09:58 09:58 10:00 10:10 Temp 37.4 Resp 16 16 14 B/P (MAP) 107/63 (78) 101/62 (75) 107/76 (86) Pulse Ox 96 96 98 O2 Delivery OxyMask OxyMask OxyMask Nasal Cannula O2 Flow Rate 8 8 8 4 07/28/21 07/28/21 07/28/21 07/28/21 10:10 10:20 10:25 10:30 Resp 14 16 B/P (MAP) 114/83 (93) 106/63 (77) Pulse Ox 93 92 O2 Delivery Nasal Cannula Nasal Cannula Nasal Cannula Nasal Cannula O2 Flow Rate 4 2 2 2 07/28/21 07/28/21 07/28/21 07/28/21 10:40 10:40 10:50 10:55 Temp 36.9 36.9 Resp 16 16 16 B/P (MAP) 115/72 (86) 114/74 (87) 114/74 (87) Pulse Ox 93 93 93 O2 Delivery Nasal Cannula Nasal Cannula Nasal Cannula Nasal Cannula O2 Flow Rate 2 2 2 2 07/28/21 07/28/21 07/28/21 07/28/21 10:55 11:02 13:00 14:18 Temp 36.5 Pulse 52 94 Resp 18 B/P (MAP) 110/53 (72) Pulse Ox 95 96 O2 Delivery Nasal Cannula Nasal Cannula Nasal Cannula O2 Flow Rate 2 2.00 2.00 07/28/21 07/28/21 15:34 16:18 Pulse 108 B/P (MAP) 90/54 (66) 131/55 (80) Pulse Ox 97 O2 Flow Rate 2.00 07/28/21 00:00 Intake Total 500 ml Balance 500 ml Capillary Refill : Less Than 3 SecondsLess Than 3 Seconds Constitutional: No AAO x 3; other (Thin and cachectic appearing) HEENT: PERRL, EOMI; No xanthelasmas are seen Neck: carotid pulses are 2 + bilaterally Respiratory: No accessory muscle use; other (fair air entry, diminished at the bases) Cardiovascular: irregularly irregular, S1 and S2, systolic murmur (soft ELIE at the cardiac base) Gastrointestinal: No tender; soft; No guarding, No rebound; audible bowel sounds Extremities: No clubbing, No cyanosis, No significant edema Neurologic/Psychiatric: No oriented x 3; other (appears to move all limbs equally) Skin: No rash on exposed areas, No ulcerations on exposed areas Data Review Labs Laboratory Tests 07/27/21 19:12: White Blood Count 4.2L, Red Blood Count 2.90L, Hemoglobin 10.1L, Hematocrit 30L, Mean Corpuscular Volume 105H, Mean Corpuscular Hemoglobin 35H, Mean Corpuscular Hemoglobin Concent 33, Red Cell Distribution Width 15.9H, Platelet Count 110L, Mean Platelet Volume 13.1H, Immature Granulocyte % (Auto) 1, Neutrophils (%) (Auto) 53, Lymphocytes (%) (Auto) 37, Monocytes (%) (Auto) 9, Eosinophils (%) (Auto) 1, Basophils (%) (Auto) 0, Neutrophils # (Auto) 2.2, Lymphocytes # (Auto) 1.6, Monocytes # (Auto) 0.4, Eosinophils # (Auto) 0.0, Basophils # (Auto) 0.0, Immature Granulocyte # (Auto) 0.0, Percent Immature Platelet Fraction 13.8H, Sodium Level 138, Potassium Level 3.9, Chloride Level 106, Carbon Dioxide Level 23, Anion Gap 9, Blood Urea Nitrogen 11, Creatinine 0.70, Estimat Glomerular Filtration Rate 107, BUN/Creatinine Ratio 16, Glucose Level 120H, Calcium Level 9.4, Corrected Calcium 10.0, Total Bilirubin 1.2H, Aspartate Amino Transf (AST/SGOT) 29, Alanine Aminotransferase (ALT/SGPT) 27, Alkaline Phosphatase 52, Total Protein 5.7L, Albumin 3.3 07/27/21 20:47: Urine Color YELLOW, Urine Clarity CLEAR, Urine pH 7.0, Urine Specific [place] 1.015L, Urine Protein NEGATIVE, Urine Glucose (UA) NEGATIVE, Urine Ketones NEGATIVE, Urine Nitrite NEGATIVE, Urine Bilirubin NEGATIVE, Urine Urobilinogen 0.2, Urine Leukocyte Esterase NEGATIVE, Urine RBC (Auto) NEGATIVE, Urine RBC NONE, Urine WBC NONE, Urine Squamous Epithelial Cells RARE, Urine Crystals PRESENTH, Urine Calcium Oxalate Crystals FEWH, Urine Amorphous Sediment FEW STEVEN PHOSPHATEH, Urine Bacteria NEGATIVE, Urine Casts NONE, Urine Mucus SMALLH, Urine Culture Indicated NO 07/28/21 05:05: White Blood Count 4.5, Red Blood Count 2.77L, Hemoglobin 9.8L, Hematocrit 30L, Mean Corpuscular Volume 107H, Mean Corpuscular Hemoglobin 35H, Mean Corpuscular Hemoglobin Concent 33, Red Cell Distribution Width 16.2H, Platelet Count 107L, Mean Platelet Volume 13.2H, Immature Granulocyte % (Auto) 1, Neutrophils (%) (Auto) 60, Lymphocytes (%) (Auto) 31, Monocytes (%) (Auto) 8, Eosinophils (%) (Auto) 0, Basophils (%) (Auto) 0, Neutrophils # (Auto) 2.7, Lymphocytes # (Auto) 1.4, Monocytes # (Auto) 0.4, Eosinophils # (Auto) 0.0, Basophils # (Auto) 0.0, Immature Granulocyte # (Auto) 0.0, Sodium Level 138, Potassium Level 4.3, Chlo ride Level 107, Carbon Dioxide Level 23, Anion Gap 8, Blood Urea Nitrogen 9, Creatinine 0.64, Estimat Glomerular Filtration Rate 119, BUN/Creatinine Ratio 14, Glucose Level 133H, Calcium Level 8.9 Laboratory Tests 07/27/21 19:12 07/28/21 05:05 A/P-Cardiology Assessment/Admission Diagnosis S/P non-syncopal fall leading to right hip fracture Nonsyncopal fall - leading to left hip fracture on 11-18-2020, treated with femoral neck fixation on 11/19/[address] Petit - recurrent fall on 07-27-21 leading to right hip fracture, being treated with right hip bipolar replacement by Dr. Leung on 07-28-21 Chronic A Fib - Long-acting dilt for rate control. 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 - Last cath was on 05/20/14. It showed diffuse disease consisting of up to 50% stenoses in all cors. FFR across multiple mid-vessel LAD lesions was 0.92, indicating hemodynamic insignificance. There was a patent stent in mid LAD and in distal RCA. Distal RCA stent is known to be Promus [id number] placed in Aug 2012. LVEF on cath of May 2014 was 45% and LVEDP was mildly elevated Hyperlipidemia - but the patient is intolerant to statins. H/O Postural hypotension - resolved following cessation of therapy with RYAN inhibitors and Terazosin. Multiple medication intolerances. See below. - Intolerance to beta-blockers on account of symptomatic bradycardia and hypotension. - Intolerance to RYAN inhibitors on account of postural hypotension - Intolerance to ARBs on account of dizziness. - Intolerance to statins - Intolerance to warfarin due to nonspecific symptoms and fear of side effects - has tolerated apixaban Carotid dz - Mild carotid arterial disease (less than 40%) per carotid ultrasonography of May 2016. Chronic moderate vertigo. Chronic low back pain - s/p low low back kyphoplasty, but back pain has persisted Discussion and Recomendations * Continue previous cardiac meds as tolerated, including anticoag for stroke prophylaxis * Monitor labs UZIEL SHEEHAN MD [facility] Jul 28, 2021 17:34
--- NOTE | 2021-07-28 17:40 | Wound Care Assessment ---
Wound Care Assessment Date Seen by Provider: Jul 28, 2021 Time Seen by Provider: 12:15 Chief Complaint Sacral pressure ulcer. HPI The patient is an 86 year old male with unstageable sacral pressure ulcer, present on admission. Seen in conjunction with Carrillo RUSSO. Orders written for care. Smoking Status: Former Smoker Review of Systems Pulmonary: No Dyspnea Exam Vital Signs Date Time Temp Pulse Resp B/P (MAP) Pulse Ox O2 Delivery O2 Flow Rate FiO2 07/28/21 16:18 108 131/55 (80) 97 2.00 07/28/21 14:18 Nasal Cannula 07/28/21 11:02 36.5 18 Capillary Refill : Less Than 3 SecondsLess Than 3 Seconds Extremities: other (Sacral pressure ulcer, per nursing notes.) Results Laboratory Tests 07/27/21 19:12: White Blood Count 4.2L, Red Blood Count 2.90L, Hemoglobin 10.1L, Hematocrit 30L, Mean Corpuscular Volume 105H, Mean Corpuscular Hemoglobin 35H, Mean Corpuscular Hemoglobin Concent 33, Red Cell Distribution Width 15.9H, Platelet Count 110L, Mean Platelet Volume 13.1H, Immature Granulocyte % (Auto) 1, Neutrophils (%) (Auto) 53, Lymphocytes (%) (Auto) 37, Monocytes (%) (Auto) 9, Eosinophils (%) (Auto) 1, Basophils (%) (Auto) 0, Neutrophils # (Auto) 2.2, Lymphocytes # (Auto) 1.6, Monocytes # (Auto) 0.4, Eosinophils # (Auto) 0.0, Basophils # (Auto) 0.0, Immature Granulocyte # (Auto) 0.0, Percent Immature Platelet Fraction 13.8H, Sodium Level 138, Potassium Level 3.9, Chloride Level 106, Carbon Dioxide Level 23, Anion Gap 9, Blood Urea Nitrogen 11, Creatinine 0.70, Estimat Glomerular Filtration Rate 107, BUN/Creatinine Ratio 16, Glucose Level 120H, Calcium Level 9.4, Corrected Calcium 10.0, Total Bilirubin 1.2H, Aspartate Amino Transf (AST/SGOT) 29, Alanine Aminotransferase (ALT/SGPT) 27, Alkaline Phosphatase 52, Total Protein 5.7L, Albumin 3.3 07/27/21 20:47: Urine Color YELLOW, Urine Clarity CLEAR, Urine pH 7.0, Urine Specific [place] 1.015L, Urine Protein NEGATIVE, Urine Glucose (UA) NEGATIVE, Urine Ketones NEGATIVE, Urine Nitrite NEGATIVE, Urine Bilirubin NEGATIVE, Urine Urobilinogen 0.2, Urine Leukocyte Esterase NEGATIVE, Urine RBC (Auto) NEGATIVE, Urine RBC NONE, Urine WBC NONE, Urine Squamous Epithelial Cells RARE, Urine Crystals PRESENTH, Urine Calcium Oxalate Crystals FEWH, Urine Amorphous Sediment FEW STEVEN PHOSPHATEH, Urine Bacteria NEGATIVE, Urine Casts NONE, Urine Mucus SMALLH, Urine Culture Indicated NO 07/28/21 05:05: White Blood Count 4.5, Red Blood Count 2.77L, Hemoglobin 9.8L, Hematocrit 30L, Mean Corpuscular Volume 107H, Mean Corpuscular Hemoglobin 35H, Mean Corpuscular Hemoglobin Concent 33, Red Cell Distribution Width 16.2H, Platelet Count 107L, Mean Platelet Volume 13.2H, Immature Granulocyte % (Auto) 1, Neutrophils (%) (Auto) 60, Lymphocytes (%) (Auto) 31, Monocytes (%) (Auto) 8, Eosinophils (%) (Auto) 0, Basophils (%) (Auto) 0, Neutrophils # (Auto) 2.7, Lymphocytes # (Auto) 1.4, Monocytes # (Auto) 0.4, Eosinophils # (Auto) 0.0, Basophils # (Auto) 0.0, Immature Granulocyte # (Auto) 0.0, Sodium Level 138, Potassium Level 4.3, Chlor markel Level 107, Carbon Dioxide Level 23, Anion Gap 8, Blood Urea Nitrogen 9, Creatinine 0.64, Estimat Glomerular Filtration Rate 119, BUN/Creatinine Ratio 14, Glucose Level 133H, Calcium Level 8.9 Assessment/Plan/Dx 1. Sacral pressure ulcer. Plan: per orders. TOMAS MERCHANT MD Jul 28, 2021 17:40
[2021-07-28] MEDS: LACTATED RINGERS 1,000 ML IV SCH (18:31)
[2021-07-28 20:24] LABS: HEMOGLOBIN 8.3 g/dL (13.3-17.7)
[2021-07-29] VITALS (8 sets, daily range): BP systolic 107–148; BP diastolic 55–76
[2021-07-29] MEDS: CEFUROXIME INJECTION 750 MG in WATER (STERILE) FOR INJECTION 10 ML IV SCH (01:00)
[2021-07-29] MEDS: fentaNYL INJ 100 MCG/2 ML AMP IVP PRN ×3 (01:01→11:26)
[2021-07-29] MEDS ORDERED: LACTATED RINGERS 1,000 ML IV SCH (02:45)
[2021-07-29 05:45] LABS: BASOPHILS % (AUTO) 0 % (0-10); EOSINOPHILS % (AUTO) 0 % (0-10); HEMATOCRIT 25 % (40-54); HEMOGLOBIN 8.2 g/dL (13.3-17.7); LYMPHOCYTES # (AUTO) 1.1 10^3/uL (1.0-4.0); LYMPHOCYTES % (AUTO) 20 % (12-44); MEAN CORPUSCULAR HEMOGLOBIN 36 pg (25-34); MEAN CORPUSCULAR HGB CONC 32 g/dL (32-36); MEAN CORPUSCULAR VOLUME 110 fL (80-99); MONOCYTES # (AUTO) 0.6 10^3/uL (0.0-1.0); MONOCYTES % (AUTO) 11 % (0-12); NEUTROPHILS # (AUTO) 3.7 10^3/uL (1.8-7.8); NEUTROPHILS % (AUTO) 67 % (42-75); PLATELET COUNT 132 10^3/uL (130-400); WHITE BLOOD COUNT 5.5 10^3/uL (4.3-11.0)
[2021-07-29 05:55] LABS: ALBUMIN 2.9 GM/DL (3.2-4.5)
[2021-07-29 05:56] LABS: POTASSIUM 5.6 MMOL/L (3.6-5.0)
[2021-07-29 05:57] LABS: CALCIUM 9.1 MG/DL (8.5-10.1)
[2021-07-29 05:58] LABS: TOTAL PROTEIN 5.2 GM/DL (6.4-8.2)
[2021-07-29 06:00] LABS: BILIRUBIN,TOTAL 1.7 MG/DL (0.1-1.0)
[2021-07-29 06:02] LABS: CREATININE SERUM 1.79 MG/DL (0.60-1.30)
[2021-07-29] MEDS: MULTIVIT W/MINERALS TAB (THERAGRAN M) PO SCH (06:39)
--- NOTE | 2021-07-29 07:55 | Progress Note ---
Standard Progress Note Progress Notes/Assess & Plan Date Seen by a Provider: Jul 29, 2021 Time Seen by a Provider: 07:53 Progress/Assessment & Plan post op check Radiographs--HW well positioned without fracture RLE--1 plus DP pulse with brisk cap refill intact DF and PF of toes and ankle with intact sensation to light touch throughout s/p R hip bipolar mobilize as able Final Diagnosis no complaints refused PT yesterday Laboratory Tests Test 07/28/21 20:17 07/28/21 20:43 07/29/21 05:25 Range/Units Hemoglobin 8.3 L 8.2 L 13.3-17.7 g/dL Hematocrit 26 L 25 L 40-54 % Glucometer 156 H 70-110 MG/DL White Blood Count 5.5 4.3-11.0 10^3/uL Red Blood Count 2.30 L 4.30-5.52 10^6/uL Mean Corpuscular Volume 110 H 80-99 fL Mean Corpuscular Hemoglobin 36 H 25-34 pg Mean Corpuscular Hemoglobin Concent 32 32-36 g/dL Red Cell Distribution Width 16.6 H 10.0-14.5 % Platelet Count 132 130-400 10^3/uL Mean Platelet Volume 13.0 H 9.0-12.2 fL Immature Granulocyte % (Auto) 1 % Neutrophils (%) (Auto) 67 42-75 % Lymphocytes (%) (Auto) 20 12-44 % Monocytes (%) (Auto) 11 0-12 % Eosinophils (%) (Auto) 0 0-10 % Basophils (%) (Auto) 0 0-10 % Neutrophils # (Auto) 3.7 1.8-7.8 10^3/uL Lymphocytes # (Auto) 1.1 1.0-4.0 10^3/uL Monocytes # (Auto) 0.6 0.0-1.0 10^3/uL Eosinophils # (Auto) 0.0 0.0-0.3 10^3/uL Basophils # (Auto) 0.0 0.0-0.1 10^3/uL Immature Granulocyte # (Auto) 0.1 0.0-0.1 10^3/uL Sodium Level 137 135-145 MMOL/L Potassium Level 5.6 H 3.6-5.0 MMOL/L Chloride Level 106 98-107 MMOL/L Carbon Dioxide Level 18 L 21-32 MMOL/L Anion Gap 13 5-14 MMOL/L Blood Urea Nitrogen 19 H 7-18 MG/DL Creatinine 1.79 H 0.60-1.30 MG/DL Estimat Glomerular Filtration Rate 36 BUN/Creatinine Ratio 11 Glucose Level 142 H 70-105 MG/DL Calcium Level 9.1 8.5-10.1 MG/DL Corrected Calcium 10.0 8.5-10.1 MG/DL Total Bilirubin 1.7 H 0.1-1.0 MG/DL Aspartate Amino Transf (AST/SGOT) 61 H 5-34 U/L Alanine Aminotransferase (ALT/SGPT) 57 H 0-55 U/L Alkaline Phosphatase 42 40-136 U/L Total Protein 5.2 L 6.4-8.2 GM/DL Albumin 2.9 L 3.2-4.5 GM/DL Vital Signs Date Time Temp Pulse Resp B/P (MAP) Pulse Ox O2 Delivery O2 Flow Rate FiO2 07/29/21 07:23 37.2 120 20 148/66 (93) 96 Nasal Cannula 3.00 07/29/21 03:33 37.0 118 20 107/61 (76) 95 Nasal Cannula 2.00 07/29/21 01:00 140 07/29/21 00:00 37.2 101 20 110/76 (87) 97 Nasal Cannula 2.00 07/28/21 20:29 36.8 104 18 110/50 (70) 98 Nasal Cannula 2.00 07/28/21 20:19 Nasal Cannula 2.00 07/28/21 19:00 107 07/28/21 16:18 108 131/55 (80) 97 2.00 07/28/21 15:34 90/54 (66) 07/28/21 14:18 96 Nasal Cannula 2.00 07/28/21 13:00 94 07/28/21 11:02 36.5 52 18 110/53 (72) 95 Nasal Cannula 2.00 07/28/21 10:55 Nasal Cannula 2 07/28/21 10:55 36.9 16 114/74 (87) 93 Nasal Cannula 2 07/28/21 10:50 36.9 16 114/74 (87) 93 Nasal Cannula 2 07/28/21 10:40 Nasal Cannula 2 07/28/21 10:40 16 115/72 (86) 93 Nasal Cannula 2 07/28/21 10:30 16 106/63 (77) 92 Nasal Cannula 2 07/28/21 10:25 Nasal Cannula 2 07/28/21 10:20 14 114/83 (93) 93 Nasal Cannula 2 07/28/21 10:10 Nasal Cannula 4 07/28/21 10:10 14 107/76 (86) 98 Nasal Cannula 4 07/28/21 10:00 16 101/62 (75) 96 OxyMask 8 07/28/21 09:58 37.4 16 107/63 (78) 96 OxyMask 8 07/28/21 09:58 OxyMask 8 07/28/21 08:00 Nasal Cannula 2.00 l I & O 07/29/21 07:00 Intake Total 2285 ml Output Total 740 ml Balance 1545 ml RLE--NVI distally. No calf tenderness. Dressing intact s/p R hip bipolar PT/OT may require placement TOMAS COX MD Jul 29, 2021 07:55
--- NOTE | 2021-07-29 08:26 | Progress Note - Cardiology ---
Cardiology SOAP Progress Note Subjective: Sitting up in bed C/O right hip pain No c/o CP, SOB or palpitations Objective: I&O/Vital Signs 07/29/21 07/29/21 07/30/21 07/30/21 20:41 23:58 01:00 03:43 Temp 36.8 36.8 36.4 Pulse 95 101 110 102 Resp 18 16 16 B/P (MAP) 109/69 (82) 107/55 (72) 110/59 (76) Pulse Ox 93 97 95 O2 Delivery Nasal Cannula Nasal Cannula Nasal Cannula O2 Flow Rate 3.00 2.00 2.00 07/30/21 07/30/21 06:43 07:28 Temp 35.7 Pulse 107 110 Resp 20 B/P (MAP) 108/77 (87) Pulse Ox 92 O2 Delivery Nasal Cannula O2 Flow Rate 2.00 07/30/21 00:00 Intake Total 740 ml Output Total 250 ml Balance 490 ml Weight (Pounds): 163 Weight (Ounces): 2.0 Weight (Calculated Kilograms): 73.029123 Constitutional: No AAO x 3; other (Thin and cachectic appearing) Respiratory: No accessory muscle use; other (fair air entry, diminished at the bases) Cardiovascular: irregularly irregular, S1 and S2, systolic murmur (soft ELIE at the cardiac base) Gastrointestional: No tender; soft; No guarding, No rebound; audible bowel sounds Extremities: No clubbing, No cyanosis, No significant edema Neurologic/Psychiatric: No oriented x 3; other (appears to move all limbs equally) Skin: No rash on exposed areas, No ulcerations on exposed areas Results/Procedures: Labs Laboratory Tests 07/29/21 09:11: Sodium Level 137, Potassium Level 5.4H, Chloride Level 105, Carbon Dioxide Level 16L, Anion Gap 16H, Blood Urea Nitrogen 23H, Creatinine 1.98H, Estimat Glomerular Filtration Rate 32, BUN/Creatinine Ratio 12, Glucose Level 151H, Calcium Level 9.3 07/29/21 16:24: Sodium Level 137, Potassium Level 5.0, Chloride Level 105, Carbon Dioxide Level 20L, Anion Gap 12, Blood Urea Nitrogen 27H, Creatinine 2.05H, Estimat Glomerular Filtration Rate 31, BUN/Creatinine Ratio 13, Glucose Level 144H, Calcium Level 9.0 07/30/21 04:50: Sodium Level 138, Potassium Level 4.1, Chloride Level 108H, Carbon Dioxide Level 23, Anion Gap 7, Blood Urea Nitrogen 31H, Creatinine 1.40H, Estimat Glomerular Filtration Rate 48, BUN/Creatinine Ratio 22, Glucose Level 134H, Calcium Level 8.5, White Blood Count 2.1L, Red Blood Count 1.78L, Hemoglobin 6.3#*L, Hematocrit 19*L, Mean Corpuscular Volume 109H, Mean Corpuscular Hemoglobin 35H, Mean Corpuscular Hemoglobin Concent 33, Red Cell Distribution Width 16.6H, Platelet Count 111L, Mean Platelet Volume 12.9H, Corrected Calcium 9.7, Magnesium Level 1.8, Total Bilirubin 0.9, Aspartate Amino Transf (AST/SGOT) 173H , Alanine Aminotransferase (ALT/SGPT) 208H, Alkaline Phosphatase 44, Total Protein 4.4L, Albumin 2.5L A/P: Assessment: S/P non-syncopal fall leading to right hip fracture - POD 1 Nonsyncopal fall - leading to left hip fracture on 11-18-2020, treated with femoral neck fixation on 11/19/[address] Petit - recurrent fall on 07-27-21 leading to right hip fracture, being treated with right hip bipolar replacement by Dr. 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 - Last cath was on 05/20/14. It showed diffuse disease consisting of up to 50% stenoses in all cors. FFR across multiple mid-vessel LAD lesions was 0.92, indicating hemodynamic insignificance. There was a patent stent in mid LAD and in distal RCA. Distal RCA stent is known to be Promus [id number] placed in Aug 2012. LVEF on cath of May 2014 was 45% and LVEDP was mildly elevated Hyperlipidemia - but the patient is intolerant to statins. H/O Postural hypotension - resolved following cessation of therapy with RYAN inhibitors and Terazosin. Multiple medication intolerances. See below. - Intolerance to beta-blockers on account of symptomatic bradycardia and hypotension. - Intolerance to RYAN inhibitors on account of postural hypotension - Intolerance to ARBs on account of dizziness. - Intolerance to statins - Intolerance to warfarin due to nonspecific symptoms and fear of side effects - has tolerated apixaban Carotid dz - Mild carotid arterial disease (less than 40%) per carotid ultrasonography of May 2016. Chronic moderate vertigo. Chronic low back pain - s/p low low back kyphoplasty, but back pain has persisted Plan: * A-fib with RVR - start Cardizem CD - if remains uncontrolled may need to start Cardizem gtt and transfer to ICU * Acute renal insufficiency with low output of undetermined etiology - receiving IVF - monitor closely d/t risk of systolic CHF d/t low LVEF * Change IVF to NS * Post op anemia - management per medical/surgical services * Advise resumption of OAC for stroke prophylaxis d/t chronic a-fib ADRIANA, when ok with surgical/medical services * Monitor labs closely * Further recs will be based on his hospital course CAITLYN SANTILLAN Jul 29, 2021 08:26
[2021-07-29 09:34] LABS: CALCIUM 9.3 MG/DL (8.5-10.1); CREATININE SERUM 1.98 MG/DL (0.60-1.30); POTASSIUM 5.4 MMOL/L (3.6-5.0)
[2021-07-29] MEDS: SENNOSIDES 8.6 MG (SENOKOT) TAB PO SCH ×2 (09:39→22:12)
--- NOTE | 2021-07-29 09:45 | Progress Note - Cardiology ---
Cardiology SOAP Progress Note Subjective: Marked gen weakness and malaise No cp or palp or syncope or shortness of breath No n/v/d Objective: I&O/Vital Signs 07/29/21 07/29/21 07/29/21 07/29/21 00:00 01:00 03:33 07:23 Temp 37.2 37.0 37.2 Pulse 101 140 118 120 Resp 20 20 20 B/P (MAP) 110/76 (87) 107/61 (76) 148/66 (93) Pulse Ox 97 95 96 O2 Delivery Nasal Cannula Nasal Cannula Nasal Cannula O2 Flow Rate 2.00 2.00 3.00 07/29/21 00:00 Intake Total 125 ml Output Total 450 ml Balance -325 ml Weight (Pounds): 163 Weight (Ounces): 2.0 Weight (Calculated Kilograms): 73.033395 Constitutional: AAO x 3, other (Thin and cachectic appearing) Respiratory: No accessory muscle use; other (fair air entry, diminished at the bases) Cardiovascular: irregularly irregular, S1 and S2, systolic murmur (soft ELIE at the cardiac base) Gastrointestional: No tender; soft; No guarding, No rebound; audible bowel sounds Extremities: No clubbing, No cyanosis, No significant edema Neurologic/Psychiatric: No oriented x 3; other (appears to move all limbs equally) Skin: No rash on exposed areas, No ulcerations on exposed areas Results/Procedures: Labs Laboratory Tests 07/28/21 20:17: Hemoglobin 8.3L, Hematocrit 26L 07/28/21 20:43: Glucometer 156H 07/29/21 05:25: Hemoglobin 8.2L, Hematocrit 25L, White Blood Count 5.5, Red Blood Count 2.30L, Mean Corpuscular Volume 110H, Mean Corpuscular Hemoglobin 36H, Mean Corpuscular Hemoglobin Concent 32, Red Cell Distribution Width 16.6H, Platelet Count 132, Mean Platelet Volume 13.0H, Immature Granulocyte % (Auto) 1, Neutrophils (%) (Auto) 67, Lymphocytes (%) (Auto) 20, Monocytes (%) (Auto) 11, Eosinophils (%) (Auto) 0, Basophils (%) (Auto) 0, Neutrophils # (Auto) 3.7, Lymphocytes # (Auto) 1.1, Monocytes # (Auto) 0.6, Eosinophils # (Auto) 0.0, Basophils # (Auto) 0.0, Immature Granulocyte # (Auto) 0.1, Sodium Level 137, Potassium Level 5.6H, Chloride Level 106, Carbon Dioxide Level 18L, Anion Gap 13, Blood Urea Nitrogen 19H, Creatinine 1.79H, Estimat Glomerular Filtration Rate 36, BUN/Creatinine Ratio 11, Glucose Level 142H, Calcium Level 9.1, Corrected Calcium 10.0, Total Bilirubin 1.7H, Aspartate Amino Transf (AST/SGOT) 61H, Alanine Aminotransferase (ALT/SGPT) 57H, Alkaline Phosphatase 42, Total Protein 5.2L, Albumin 2.9L 07/29/21 09:11: Sodium Level 137, Potassium Level 5.4H, Chloride Level 105, Carbon Dioxide Level 16L, Anion Gap 16H, Blood Urea Nitrogen 23H, Creatinine 1.98H, Estimat Glomerular Filtration Rate 32, BUN/Creatinine Ratio 12, Glucose Level 151H, Calcium Level 9.3 Laboratory Tests 07/27/21 19:12 07/28/21 05:05 07/28/21 20:17 07/29/21 05:25 07/29/21 09:11 A/P: Assessment: Chronic A Fib, currently with RVR - Eliquis for stroke prophylaxis - being held - 24 HR Holter of Aug 2020 showed a-fib throughout the study with av vent rate 85 bpm, no signif audelia, coupled and isolated PVC's Acute renal failure with mild hyperkalemia, managed by the Hospitalist svce - suspect intravascular volume depletion, currently receiving IVF hydration S/P non-syncopal fall leading to right hip fracture - POD 1 Nonsyncopal falls - leading to left hip fracture on 11-18-2020, treated with femoral neck fixation on 11/19/[address] Petit - recurrent fall on 07-27-21 leading to right hip fracture, being treated with right hip bipolar replacement by Dr. Leung on 07-28-21 Anemia - post op anemia - management per medical/surgical services Elevated liver enzymes of undetermined etiololgy - management per medical services Chronic HFrEF due to dilated cardiomyopathy: - Echo of 04/07/20: LVEF 15-20%, diffuse hypokinesis, mod to severe MR and TR, RVSP 25 mmHg Coronary artery disease. - Last cath was on 05/20/14. It showed diffuse disease consisting of up to 50% stenoses in all cors. FFR across multiple mid-vessel LAD lesions was 0.92, i ndicating hemodynamic insignificance. There was a patent stent in mid LAD and in distal RCA. Distal RCA stent is known to be Promus [id number] placed in Aug 2012. LVEF on cath of May 2014 was 45% and LVEDP was mildly elevated Hyperlipidemia - but the patient is intolerant to statins. H/o postural hypotension - resolved following cessation of therapy with RYAN inhibitors and Terazosin. Multiple medication intolerances. See below. - Intolerance to beta-blockers on account of symptomatic bradycardia and hypotension. - Intolerance to RYAN inhibitors on account of postural hypotension - Intolerance to ARBs on account of dizziness. - Intolerance to statins - Intolerance to warfarin due to nonspecific symptoms and fear of side effects - has tolerated apixaban Carotid dz - Mild carotid arterial disease (less than 40%) per carotid ultrasonography of May 2016. Chronic moderate vertigo. Chronic low back pain - s/p low low back kyphoplasty, but back pain has persisted Plan: * A-fib with RVR - start Cardizem CD - if remains uncontrolled may need to start Cardizem gtt and transfer to ICU * Acute renal insufficiency with low output of undetermined etiology, managed by Hosp svce - receiving IVF - monitor closely d/t risk of systolic CHF d/t low LVEF * Change IVF to NS * Post op anemia - management per Medical/Surgical services * Advise resumption of OAC for stroke prophylaxis d/t chronic a-fib ADRIANA, when ok with Surgical/Medical services * Monitor labs closely * Further recs will be based on his hospital course * Guarded prognosis due to multiple comorbidities and progressively deteriorating functional status and multiple nonsyncopal falls in the last several months UZIEL SHEEHAN MD FACP [facility] Jul 29, 2021 09:45
[2021-07-29] MEDS: NS IV 1000 ML 1,000 ML IV SCH ×3 (09:53→22:12)
--- NOTE | 2021-07-29 10:10 | Anesthesia-General Post-Op ---
General Patient Condition Mental Status/LOC: Same as Preop Cardiovascular: Satisfactory Nausea/Vomiting: Absent Respiratory: Satisfactory Pain: Controlled Complications: Absent Post Op Complications Complications None Follow Up Care/Instructions Patient Instructions None needed. Anesthesia/Patient Condition Patient Condition Patient is doing well, no complaints, stable vital signs, no apparent adverse anesthesia problems. No complications reported per nursing. TAY COLEMAN CRNA Jul 29, 2021 10:10
--- NOTE | 2021-07-29 10:45 | Progress Note - Hospitalist ---
Subjective HPI/CC On Admission Date Seen by Provider: Jul 29, 2021 Time Seen by Provider: 10:37 Patient is an 86-year-old male with past medical history of atrial fibrillation, DVT, coronary artery disease status post stenting, hypertension, hyperlipidemia, stroke who presented to the emergency department after a fall. He reports his legs gave out on him and he fell onto his right hip. EMS was summoned due to his pain and inability to move. In the emergency room he was found to have a right hip fracture and has been admitted for operative care later today. This morning he complains of pain and is requesting a pain shot. He is also preemptively apologizing for "cussing everyone out" because he knows he will be in very severe pain and thinks he will be unable to control his temper. Subjective/Events-last exam Pt repors severe pain. He refused PT yesterday. Thinks they were in today but is unsure if they were and doesn't think he worked with them if so. I encouraged participating with therapy. He does not objectively appear to be in pain but it seems more anticipatory fear of pain as he was not being moved but screamed at his nurse and I that it was going to hurt his right leg and said we couldn't touch it. I informed him that we will have to touch his leg to provide PT and wound care from surgery but we will be as cautious as we can and provide pain medication as needed. Objective Exam Vital Signs Vital Signs Date Time Temp Pulse Resp B/P (MAP) Pulse Ox O2 Delivery O2 Flow Rate FiO2 07/29/21 07:23 37.2 120 20 148/66 (93) 96 Nasal Cannula 3.00 Capillary Refill : Less Than 3 SecondsLess Than 3 Seconds General Appearance: No Apparent Distress, Chronically ill, Thin Respiratory: Lungs Clear, No Respiratory Distress Cardiovascular: No Murmur, Tachycardia Gastrointestinal: Normal Bowel Sounds, Non Tender, Soft Neurologic/Psychiatric: Alert, Oriented x3 Results/Procedures Lab Laboratory Tests 07/28/21 20:17 07/29/21 05:25 07/29/21 09:11 Patient resulted labs reviewed. Imaging: Reviewed Imaging Report Assessment/Plan Assessment and Plan Assess & Plan/Chief Complaint Right hip fracture Falls Debility POD #1 Pain regimen per Ortho Cardiology consulted Continue pain regimen PT/OT post op Consider IRF vs placement PHYLICIA Creatinine up to 1.79 Will treat with IV fluids cautious due to severely decreased EF and high risk for decompensated CHF Continue NS and avoid LR due to mild hyperkalema kayexalate ordered, avoiding lasix due to PHYLICIA for now Monitor UOP closely Repeat labs A-fib with RVR- now resolved Noncompliance Dilated cardiomyopathy, EF 5/20- 15-20% Mitral regurgitation Tricupsid regurgiation CAD Long standing a fib Rate in the 120s today during my exam Just took diltiazem, low threshold for transfer to ICU if rate not improved with that Cardiology consulted, appreciate recs Continue home meds when able Monitor on telemetry DVT ppx: Eliquis when ok with surgery ION CONCEPCION MD Jul 29, 2021 10:45
[2021-07-29] MEDS ORDERED: SOD POLYSTERENE 15 GM/60 ML (KAYEXALATE) UNIT DOSE PO ONE (11:00)
--- NOTE | 2021-07-29 11:15 | Occupational Therapy Eval ---
OT Evaluation-General/PLF Medical Diagnosis Admission Date Jul 27, 2021 at 21:00 Medical Diagnosis: s/p R bipolar hip replacement Onset Date: Jul 28, 2021 Therapy Diagnosis Therapy Diagnosis: decreased ADL Status Height/Weight Height (Feet): 6 Height (Inches): 2.00 Weight (Pounds): 163 Weight (Ounces): 2.0 Precautions Precautions/Isolations: Fall Prevention, Standard Precautions Comments hip precautions. Weight Bear Status Weight Bearing Restriction: Weight Bearing/Tolerated Location Restriction: R LE Referral Physician: Antoni Referral Reason: Evaluation/Treatment Medical History Pertinent Medical History: Atrial Fib, CAD (s/p stenting), CVA, HTN, [place] Additional Medical History DVT, hyperlipidemia, BPH, anxiety Current History ED after fall, R hip fx s/p bipolar hip replacement 07/28/21 Social History Home: Single Level Current Living Status: Spouse Entry Into Home: Stairs With Railing Steps Into Home: 3 ADL-Prior Level of Function SCALE: Activities may be completed with or without assistive devices. 6-Oynnuoiefh-vtrqxzb completes the activity by him/herself with no assistance from a helper. 5-Set-up or Clean-up Assistance-helper sets up or cleans up; patient completes activity. [place] assists only prior to or following the activity. 4-Supervision or Touching Assistance-helper provides verbal cues and/or touching/steadying and/or contact guard assistance as patient completes activity. Assistance may be provided throughout the activity or intermittently. 3-Partial/Moderate Assistance-helper does LESS THAN HALF the effort. [place] lifts, holds or supports trunk or limbs, but provides less than half the effort. 2-Substantial/Maximal Assistance-helper does MORE THAN HALF the effort. [place] lifts or holds trunk or limbs and provides more than half the effort. 0-Zqeeqhxkd-dvkgin does ALL the effort. Patient does none of the effort to complete the activity. Or, the assistance of 2 or more helpers is required for the patient to complete the activity. If activity was not attempted, code reason: 7-Patient Refused. 9-Not Applicable-not attempted and the patient did not perform the activity before the current illness, exacerbation or injury. 10-Not Attempted due to Environmental Limitations-(lack of equipment, weather restraints, etc.). 88-Not Attempted due to Medical Conditions or Safety Concerns. ADL PLOF Comments Pt indicates IND with ADLs and functional mobility at PLOF using FWW Self Care: Independent Functional Cognition: Independent OT Current Status Subjective Pt laying in bed, agreeable to therapy tx. Pt hollering "easy" and "no" when therapist touches RLE or attempts to move RLE. Pt c/o Chest pain at EOB, nurse notified and present. BP 124/58, 96% O2 saturation Mental Status/Objective Patient Orientation: Person, Place, Situation Attachments: Addison Catheter, IV, Oxygen Current Upper Extremity ROM WFL Upper Extremity Coordination WFL ADL-Treatment Lower Body Dressing (QC): 1 On/Off Footwear (QC): 1 Toileting Hygiene (QC): 1 (catheter) Other Treatments Pt laying in bed, OT removed abduction wedge and donned gripper socks, total assist. Pt hollering "easy" anytime OT was near RLE. Pt insisted on moving RLE towards EOB himself, but did not move his leg, pt would not allow therapist to help move his leg. Pt aware he needs to get up, eventually allowing gentle assistance. RLE moved 1/2 and inch to the side and he states"no no no". Assistance stopped. Pt eventually agreeable to EOB with assist total assist x2. Pt is at EOB and needs to scoot forward. Pt doesn't allow therapist assistance, he attempts to move himself but unable to move any. Pt states he is having chest pain, laid back down quickly and nurse obtained. BP 124/58, O2 saturation 96%, HR 117bpm. Nurse present with EKG machine and they take over. Education OT Patient Education: Correct positioning, Energy conservation, Modified ADL techniques, Progress toward Goal/Update tx plan, Purpose of tx/functional activities, Reviewed precautions, Rehab process, Safety issues, Transfer techniques Teaching Recipient: Patient Teaching Methods: Discussion Response to Teaching: Verbalize Understanding OT Retirement Goals Comptroller Goals Time Frame: Aug 13, 2021 Eating (QC): 6 Oral Hygiene (QC): 6 Toileting Hygiene (QC): 3 Shower/Bathe Self (QC): 3 Upper Body Dressing (QC): 5 Lower Body Dressing (QC): 3 On/Off Footwear (QC): 3 Additional Goals: 1-Demonstrate ADL Tasks, 2-Verbalize Understanding, 3- ImproveStrength/Virgilio 1=Demonstrate adherence to instructed precautions during ADL tasks. 2=Patient will verbalize/demonstrate understanding of assistive devices/modifications for ADL. 3=Patient will improve strength/tolerance for activity to enable patient to perform ADL's. OT Education/Plan Problem List/Assessment Assessment: Decreased Activ Tolerance, Decreased UE Strength, Dependent Transfers, Impaired Bed Mobility, Impaired Funct Balance, Impaired I ADL's, Impaired Self-Care Skills, Restricted Funct UE ROM Discharge Recommendations Plan/Recommendations: Continue POC Treatment Plan/Plan of Care Patient would benefit from OT for education, treatment and training to promote independence in ADL's, mobility, safety and/or upper extremity function for ADL's. Plan of Care: ADL Retraining, Functional Mobility, UE Funct Exercise/Act Treatment Duration: Aug 13, 2021 Frequency: 5 times per week Estimated Hrs Per Day: .25 hour per day Rehab Potential: Guarded Time/GCodes Start Time: 10:50 Stop Time: 11:06 Total Time Billed (hr/min): 16 Billed Treatment Time 1, RADHA GAMBOA OT Jul 29, 2021 11:15
--- NOTE | 2021-07-29 12:37 | Physical Therapy Evaluation ---
PT Evaluation-General Medical Diagnosis Admission Date Jul 27, 2021 at 21:00 Medical Diagnosis: s/p R bipolar hip replacement Onset Date: Jul 28, 2021 Therapy Diagnosis Therapy Diagnosis: impaired mobility, strength, endurance Height/Weight Height (Feet): 6 Height (Inches): 2.00 Weight (Pounds): 163 Weight (Ounces): 2.0 Precautions Precautions/Isolations: Fall Prevention, Standard Precautions Weight Bear Status Right Lower Extremity: Right Weight Bearing/Tolerated Left Lower Extremity: Left Full Weight Bearing Referral Physician: Antoni Reason for Referral: Evaluation/Treatment Medical History Pertinent Medical History: Atrial Fib, CAD (s/p stenting), CVA, HTN, [place] Reviewed History: Yes Social History Home: Single Level Current Living Status: Spouse Entry Into Home: Stairs With Railing PT Steps Into Home: 3 Prior Prior Level of Function SCALE: Activities may be completed with or without assistive devices. 6-Iaqtnbwpmf-fjfecxp completes the activity by him/herself with no assistance from a helper. 5-Set-up or Clean-up Assistance-helper sets up or cleans up; patient completes activity. [place] assists only prior to or following the activity. 4-Supervision or Touching Assistance-helper provides verbal cues and/or touching/steadying and/or contact guard assistance as patient completes activity. Assistance may be provided throughout the activity or intermittently. 3-Partial/Moderate Assistance-helper does LESS THAN HALF the effort. [place] lifts, holds or supports trunk or limbs, but provides less than half the effort. 2-Substantial/Maximal Assistance-helper does MORE THAN HALF the effort. [place] lifts or holds trunk or limbs and provides more than half the effort. 6-Cjmxpwuoy-pgvxlr does ALL the effort. Patient does none of the effort to complete the activity. Or, the assistance of 2 or more helpers is required for the patient to complete the activity. If activity was not attempted, code reason: 7-Patient Refused. 9-Not Applicable-not attempted and the patient did not perform the activity before the current illness, exacerbation or injury. 10-Not Attempted due to Environmental Limitations-(lack of equipment, weather restraints, etc.). 88-Not Attempted due to Medical Conditions or Safety Concerns. Bed Mobility: 6 Transfers (B,C,W/C): 6 Gait: 6 Stairs: 6 Indoor Mobility (Ambulation): Independent Stairs: Independent Prior Devices Use: Walker PT Evaluation-Current Subjective Patient in bed pre tx, agrees to PT, has 10/10 pain in right hip. Pt/Family Goals none stated Objective Patient Orientation: Person, Place, Situation Attachments: Oxygen, Addison Catheter, IV Sensory Hearing: Functional Sensation Right Lower Extremit: Intact Sensation Left Lower Extremity: Intact Transfers Roll Left to Right (QC): 1 Sit to Lying (QC): 1 Lying to Sitting/Side of Bed(Q: 1 Patient is very difficult to get from supine to sit. Patient will not allow therapist to help move his leg due to pain. He insists on doing it himself but no movement happens. Patient is aware that he needs to start getting up. Gentle assistance is applied and after moving patient's leg about 1/2 inch to the side he says "no no no!". Assistance is discontinued at this. Patient eventually agrees to sit to the side of the bed with assist of 2 and dependent assist. This is done and patient is sitting on the side of the bed but needs to scoot forward. Patient doesn't let therapist assist him with doing this, he tries to do it himself but is no able to move any. Eventually patient states he is having chest pain and he is layed back down quickly and nurse is obtained. Patient's BP is 124/58, O2 is 96%, and HR is 117bpm. Nurse brings in EKG machine and they take over from there. Balance Sitting Static: Poor Sitting Dynamic: Poor Assessment/Needs Patient in bed post tx with nurse call, phone, tray, all needs met, nurse in room working with patient. Patient has impaired mobility, strength, endurance. Patient has severe pain, doesn't want help from therapist to assist with movement but also can't move himself. Rehab Potential: Poor PT Correction Goals Correction Goals PT Correction Goals Time Frame: Aug 05, 2021 Roll Left & Right (QC): 3 Sit to Lying (QC): 3 Lying-Sitting on Side/Bed(QC): 3 PT Plan Problem List Problem List: Activity Tolerance, Functional Strength, Safety, Balance, Gait, Transfer, Bed Mobility, ROM Treatment/Plan Treatment Plan: Continue Plan of Care Treatment Plan: Bed Mobility, Education, Functional Activity Virgilio, Functional Strength, Gait, Safety, Therapeutic Exercise, Transfers Treatment Duration: Aug 05, 2021 Frequency: 11 times per week Estimated Hrs Per Day: .25 hour per day Patient and/or Family Agrees t: Yes Safety Risks/Education Patient Education: Reviewed Precautions, Correct Positioning, Safety Issues Teaching Recipient: Patient Teaching Methods: Demonstration, Discussion Response to Teaching: Reinforcement Needed Discharge Recommendations Plan Patient will perform bed mobility and transfer training, balance and endurance training, functional strengthening, stair training, gait training, and education, to improve functional mobility and independence at home. Therapy Discharge Recommendati: 24 Hour Supervision Time/GCodes Time In: 1050 Time Out: 1106 Total Billed Treatment Time: 16 Total Billed Treatment 1 visit SHEELA 16' RAVEN LOAIZA PT Jul 29, 2021 12:37
--- NOTE | 2021-07-29 14:50 | Physical Therapy Progress Note ---
Therapy Progress Note Patient refused physical therapy this afternoon. Encouraged the patient to participate and explained the benefits of therapy and he continues to refuse. He refuses exercises in bed. Patient states "nope, come back tomorrow." RAVEN LOAIZA PT Jul 29, 2021 14:50
[2021-07-29 17:09] LABS: CREATININE SERUM 2.05 MG/DL (0.60-1.30)
[2021-07-29] MEDS ORDERED: APIXABAN 2.5 MG (ELIQUIS) TABLET PO SCH (21:00)
[2021-07-30] VITALS (12 sets, daily range): BP systolic 100–138; BP diastolic 56–77
[2021-07-30 05:05] LABS: MEAN CORPUSCULAR HEMOGLOBIN 35 pg (25-34); MEAN CORPUSCULAR HGB CONC 33 g/dL (32-36); MEAN CORPUSCULAR VOLUME 109 fL (80-99); MEAN PLATELET VOLUME 12.9 fL (9.0-12.2); PLATELET COUNT 111 10^3/uL (130-400); WHITE BLOOD COUNT 2.1 10^3/uL (4.3-11.0)
[2021-07-30 05:07] LABS: HEMATOCRIT 19 % (40-54); HEMOGLOBIN 6.3 g/dL (13.3-17.7)
[2021-07-30 05:19] LABS: ALBUMIN 2.5 GM/DL (3.2-4.5); POTASSIUM 4.1 MMOL/L (3.6-5.0)
[2021-07-30 05:21] LABS: CALCIUM 8.5 MG/DL (8.5-10.1)
[2021-07-30 05:22] LABS: TOTAL PROTEIN 4.4 GM/DL (6.4-8.2)
[2021-07-30 05:23] LABS: BILIRUBIN,TOTAL 0.9 MG/DL (0.1-1.0)
[2021-07-30 05:25] LABS: CREATININE SERUM 1.4 MG/DL (0.60-1.30)
[2021-07-30 05:28] LABS: MAGNESIUM 1.8 MG/DL (1.6-2.4)
[2021-07-30] MEDS ORDERED: NS IV 500 ML 500 ML IV SCH ×2 (05:45→08:15)
[2021-07-30] MEDS: NS IV 1000 ML 1,000 ML IV SCH ×2 (06:32→21:46)
[2021-07-30] MEDS: MULTIVIT W/MINERALS TAB (THERAGRAN M) PO SCH (06:32)
--- NOTE | 2021-07-30 07:03 | Progress Note ---
Standard Progress Note Progress Notes/Assess & Plan Date Seen by a Provider: Jul 30, 2021 Time Seen by a Provider: 07:01 Progress/Assessment & Plan post op check Radiographs--HW well positioned without fracture RLE--1 plus DP pulse with brisk cap refill intact DF and PF of toes and ankle with intact sensation to light touch throughout s/p R hip bipolar mobilize as able Final Diagnosis no complaints refused PT againt reinforced the importance of PT Vital Signs Date Time Temp Pulse Resp B/P (MAP) Pulse Ox O2 Delivery O2 Flow Rate FiO2 07/30/21 03:43 36.4 102 16 110/59 (76) 95 Nasal Cannula 2.00 07/30/21 01:00 110 07/29/21 23:58 36.8 101 16 107/55 (72) 97 Nasal Cannula 2.00 07/29/21 20:41 36.8 95 18 109/69 (82) 93 Nasal Cannula 3.00 07/29/21 20:00 Nasal Cannula 2.00 07/29/21 19:00 126 07/29/21 15:43 37.0 137 28 122/58 (79) 96 Nasal Cannula 3.00 07/29/21 12:30 137 07/29/21 11:28 36.8 118 22 124/58 (80) 96 Nasal Cannula 3.00 07/29/21 08:00 Nasal Cannula 2.00 07/29/21 07:23 37.2 120 20 148/66 (93) 96 Nasal Cannula 3.00 I & O 07/30/21 07:00 Intake Total 2840 ml Output Total 800 ml Balance 2040 ml Laboratory Tests Test 07/29/21 09:11 07/29/21 16:24 07/30/21 04:50 Range/Units Sodium Level 137 137 138 135-145 MMOL/L Potassium Level 5.4 H 5.0 4.1 3.6-5.0 MMOL/L Chloride Level 105 105 108 H 98-107 MMOL/L Carbon Dioxide Level 16 L 20 L 23 21-32 MMOL/L Anion Gap 16 H 12 7 5-14 MMOL/L Blood Urea Nitrogen 23 H 27 H 31 H 7-18 MG/DL Creatinine 1.98 H 2.05 H 1.40 H 0.60-1.30 MG/DL Estimat Glomerular Filtration Rate 32 31 48 BUN/Creatinine Ratio 12 13 22 Glucose Level 151 H 144 H 134 H 70-105 MG/DL Calcium Level 9.3 9.0 8.5 8.5-10.1 MG/DL White Blood Count 2.1 L 4.3-11.0 10^3/uL Red Blood Count 1.78 L 4.30-5.52 10^6/uL Hemoglobin 6.3 #*L 13.3-17.7 g/dL Hematocrit 19 *L 40-54 % Mean Corpuscular Volume 109 H 80-99 fL Mean Corpuscular Hemoglobin 35 H 25-34 pg Mean Corpuscular Hemoglobin Concent 33 32-36 g/dL Red Cell Distribution Width 16.6 H 10.0-14.5 % Platelet Count 111 L 130-400 10^3/uL Mean Platelet Volume 12.9 H 9.0-12.2 fL Corrected Calcium 9.7 8.5-10.1 MG/DL Magnesium Level 1.8 1.6-2.4 MG/DL Total Bilirubin 0.9 0.1-1.0 MG/DL Aspartate Amino Transf (AST/SGOT) 173 H 5-34 U/L Alanine Aminotransferase (ALT/SGPT) 208 H 0-55 U/L Alkaline Phosphatase 44 40-136 U/L Total Protein 4.4 L 6.4-8.2 GM/DL Albumin 2.5 L 3.2-4.5 GM/DL RLE--incision with sl bloody DC no erythema or warmth no calf tenderness neg Karl's s/p R hip bipolar PT/OT TOMAS COX MD Jul 30, 2021 07:03
[2021-07-30] MEDS ORDERED: FUROSEMIDE 40 MG/4 ML INJ (LASIX) IVP NR (08:15)
--- NOTE | 2021-07-30 08:27 | Progress Note - Cardiology ---
Cardiology SOAP Progress Note Subjective: Lying in bed Reports pain earlier this morning in his neck, which has improved No c/o CP or SOB this morning No c/o palpitations Objective: I&O/Vital Signs 07/30/21 07/30/21 07/30/21 07/30/21 01:00 03:43 06:43 07:28 Temp 36.4 35.7 Pulse 110 102 107 110 Resp 16 20 B/P (MAP) 110/59 (76) 108/77 (87) Pulse Ox 95 92 O2 Delivery Nasal Cannula Nasal Cannula O2 Flow Rate 2.00 2.00 07/30/21 07/30/21 08:00 09:56 Temp 35.7 O2 Delivery Nasal Cannula O2 Flow Rate 2.00 07/30/21 00:00 Intake Total 740 ml Output Total 250 ml Balance 490 ml Weight (Pounds): 163 Weight (Ounces): 2.0 Weight (Calculated Kilograms): 73.129777 Constitutional: AAO x 3, other (Thin and cachectic appearing) Respiratory: No accessory muscle use; other (fair air entry, diminished at the bases) Cardiovascular: irregularly irregular, S1 and S2, systolic murmur (soft ELIE at the cardiac base) Gastrointestional: No tender; soft; No guarding, No rebound; audible bowel sounds Extremities: No clubbing, No cyanosis, No significant edema Neurologic/Psychiatric: No oriented x 3; other (appears to move all limbs equally) Skin: No rash on exposed areas, No ulcerations on exposed areas Results/Procedures: Labs Laboratory Tests 07/29/21 16:24: Sodium Level 137, Potassium Level 5.0, Chloride Level 105, Carbon Dioxide Level 20L, Anion Gap 12, Blood Urea Nitrogen 27H, Creatinine 2.05H, Estimat Glomerular Filtration Rate 31, BUN/Creatinine Ratio 13, Glucose Level 144H, Calcium Level 9.0 07/30/21 04:50: Sodium Level 138, Potassium Level 4.1, Chloride Level 108H, Carbon Dioxide Level 23, Anion Gap 7, Blood Urea Nitrogen 31H, Creatinine 1.40H, Estimat Glomerular Filtration Rate 48, BUN/Creatinine Ratio 22, Glucose Level 134H, Calcium Level 8.5, White Blood Count 2.1L, Red Blood Count 1.78L, Hemoglobin 6.3#*L, Hematocrit 19*L, Mean Corpuscular Volume 109H, Mean Corpuscular Hemoglobin 35H, Mean Corpuscular Hemoglobin Concent 33, Red Cell Distribution Width 16.6H, Platelet Count 111L, Mean Platelet Volume 12.9H, Corrected Calcium 9.7, Magnes ium Level 1.8, Total Bilirubin 0.9, Aspartate Amino Transf (AST/SGOT) 173H, Alanine Aminotransferase (ALT/SGPT) 208H, Alkaline Phosphatase 44, Total Protein 4.4L, Albumin 2.5L A/P: Assessment: Chronic A Fib, currently with RVR - Eliquis for stroke prophylaxis - being held - 24 HR Holter of Aug 2020 showed a-fib throughout the study with av vent rate 85 bpm, no signif audelia, coupled and isolated PVC's Acute renal failure with mild hyperkalemia, managed by the Hospitalist jessie - suspect intravascular volume depletion, currently receiving IVF hydration - improving - reduce IVF S/P non-syncopal fall leading to right hip fracture - POD 2 Nonsyncopal falls - leading to left hip fracture on 11-18-2020, treated with femoral neck fixation on 11/19/[address] Petit - recurrent fall on 07-27-21 leading to right hip fracture, being treated with right hip bipolar replacement by Dr. Leung on 07-28-21 Anemia - post op anemia - management per medical/surgical services - receiving 2 units PRBC today Elevated liver enzymes of undetermined etiololgy - management per medical services Chronic HFrEF due to dilated cardiomyopathy: - Echo of 04/07/20: LVEF 15-20%, diffuse hypokinesis, mod to severe MR and TR, RVSP 25 mmHg Coronary artery disease. - Last cath was on 05/20/14. It showed diffuse disease consisting of up to 50% stenoses in all cors. FFR across multiple mid-vessel LAD lesions was 0.92, indicating hemodynamic insignificance. There was a patent stent in mid LAD and in distal RCA. Distal RCA stent is known to be [id number] [id number] placed in Aug 2012. LVEF on cath of May 2014 was 45% and LVEDP was mildly elevated Hyperlipidemia - but the patient is intolerant to statins. H/o postural hypotension - resolved following cessation of therapy with RYAN inhibitors and Terazosin. Multiple medication intolerances. See below. - Intolerance to beta-blockers on account of symptomatic bradycardia and hypotension. - Intolerance to RYAN inhibitors on account of postural hypotension - Intolerance to ARBs on account of dizziness. - Intolerance to statins - Intolerance to warfarin due to nonspecific symptoms and fear of side effects - has tolerated apixaban Carotid dz - Mild carotid arterial disease (less than 40%) per carotid ultrasonography of May 2016. Chronic moderate vertigo. Chronic low back pain - s/p low low back kyphoplasty, but back pain has persisted Plan: * A-fib with RVR - continue Cardizem CD - adjust as indicated * Acute renal insufficiency with low output of undetermined etiology, managed by Hosp svce - receiving IVF - monitor closely d/t risk of systolic CHF d/t low LVEF * Reduce IVF to reduce risk of volume overload and exacerbation of CHF * Post op anemia, transfuse 2 units or PRBC with Lasix in between units - management per Medical/Surgical services * Advise resumption of OAC for stroke prophylaxis d/t chronic a-fib ADRIANA, when ok with Surgical/Medical services * Monitor labs closely * Further recs will be based on his hospital course * Guarded prognosis due to multiple comorbidities and progressively deteriorating functional status and multiple nonsyncopal falls in the last several months CAITLYN SANTILLAN Jul 30, 2021 08:27
[2021-07-30] MEDS: fentaNYL INJ 100 MCG/2 ML AMP IVP PRN ×2 (09:26→11:06)
[2021-07-30] MEDS: SENNOSIDES 8.6 MG (SENOKOT) TAB PO SCH ×2 (09:26→21:45)
--- NOTE | 2021-07-30 10:41 | Progress Note - Cardiology ---
Cardiology SOAP Progress Note Subjective: Gen malaise and weakness present Poor appetite No n/v/d No focal weakness No cp or palp or syncope Objective: I&O/Vital Signs 07/29/21 07/30/21 07/30/21 07/30/21 23:58 01:00 03:43 06:43 Temp 36.8 36.4 Pulse 101 110 102 107 Resp 16 16 B/P (MAP) 107/55 (72) 110/59 (76) Pulse Ox 97 95 O2 Delivery Nasal Cannula Nasal Cannula O2 Flow Rate 2.00 2.00 07/30/21 07/30/21 07:28 08:00 Temp 35.7 Pulse 110 Resp 20 B/P (MAP) 108/77 (87) Pulse Ox 92 O2 Delivery Nasal Cannula Nasal Cannula O2 Flow Rate 2.00 2.00 07/30/21 00:00 Intake Total 740 ml Output Total 250 ml Balance 490 ml Weight (Pounds): 163 Weight (Ounces): 2.0 Weight (Calculated Kilograms): 73.960294 Constitutional: AAO x 3, other (Thin and cachectic appearing) Respiratory: No accessory muscle use; other (fair air entry, diminished at the bases) Cardiovascular: irregularly irregular, S1 and S2, systolic murmur (soft ELIE at the cardiac base) Gastrointestional: No tender; soft; No guarding, No rebound; audible bowel sounds Extremities: No clubbing, No cyanosis, No significant edema Neurologic/Psychiatric: No oriented x 3; other (appears to move all limbs equally) Skin: No rash on exposed areas, No ulcerations on exposed areas Results/Procedures: Labs Laboratory Tests 07/29/21 16:24: Sodium Level 137, Potassium Level 5.0, Chloride Level 105, Carbon Dioxide Level 20L, Anion Gap 12, Blood Urea Nitrogen 27H, Creatinine 2.05H, Estimat Glomerular Filtration Rate 31, BUN/Creatinine Ratio 13, Glucose Level 144H, Calcium Level 9.0 07/30/21 04:50: Sodium Level 138, Potassium Level 4.1, Chloride Level 108H, Carbon Dioxide Level 23, Anion Gap 7, Blood Urea Nitrogen 31H, Creatinine 1.40H, Estimat Glomerular Filtration Rate 48, BUN/Creatinine Ratio 22, Glucose Level 134H, Calcium Level 8.5, White Blood Count 2.1L, Red Blood Count 1.78L, Hemoglobin 6.3#*L, Hematocrit 19*L, Mean Corpuscular Volume 109H, Mean Corpuscular Hemoglobin 35H, Mean Corpuscular Hemoglobin Concent 33, Red Cell Distribution Width 16.6H, Platelet Count 111L, Mean Platelet Volume 12.9H, Corrected Calcium 9.7, Magnesium Level 1.8, Total Bilirubin 0.9, Aspartate Amino Transf (AST/SGOT) 173H , Alanine Aminotransferase (ALT/SGPT) 208H, Alkaline Phosphatase 44, Total Protein 4.4L, Albumin 2.5L Laboratory Tests 07/28/21 20:17 07/29/21 05:25 07/29/21 09:11 07/29/21 16:24 07/30/21 04:50 A/P: Assessment: Marked post-op (R hip surg) anemia Chronic A Fib, currently with RVR - Eliquis for stroke prophylaxis Acute renal failure with mild hyperkalemia, improved after hydration S/P non-syncopal fall leading to right hip fracture - POD 2 Nonsyncopal falls - leading to left hip fracture on 11-18-2020, treated with femoral neck fixation on 11/19/[address] Petit - recurrent fall on 07-27-21 leading to right hip fracture, being treated with right hip bipolar replacement by Dr. 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 - Last cath was on 05/20/14. It showed diffuse disease consisting of up to 50% stenoses in all cors. FFR across multiple mid-vessel LAD lesions was 0.92, indicating hemodynamic insignificance. There was a patent stent in mid LAD and in distal RCA. Distal RCA stent is known to be [id number] [id number] placed in Aug 2012. LVEF on cath of May 2014 was 45% and LVEDP was mildly elevated Hyperlipidemia - but the patient is intolerant to statins. H/o postural hypotension - resolved following cessation of therapy with RYAN inhibitors and Terazosin. Multiple medication intolerances. See below. - Intolerance to beta-blockers on account of symptomatic bradycardia and hypotension. - Intolerance to RYAN inhibitors on account of postural hypotension - Intolerance to ARBs on account of dizziness. - Intolerance to statins - Intolerance to warfarin due to nonspecific symptoms and fear of side effects - has tolerated apixaban Carotid dz - Mild carotid arterial disease (less than 40%) per carotid ultrasonography of May 2016. Chronic moderate vertigo Chronic low back pain - s/p low low back kyphoplasty, but back pain has persisted Plan: * Blood transfusion recommended * Reduce iv fluids. Diuretics as needed * Continue long-acting diltiazem * Not suitable for beta-charleen (see under Assessment) * Monitor labs closely * Guarded prognosis due to multiple comorbidities and progressively deteriorating functional status and multiple nonsyncopal falls in the last several months UZIEL SHEEHAN MD FACP [facility] Jul 30, 2021 10:41
--- NOTE | 2021-07-30 10:50 | Physical Therapy Daily Note ---
PT Daily Note-Current Subjective Patient lying supine in bed upon PT arrival, agreeable to treatment. Reports no pain in the right LE at rest, but requests multiple times that he be able to move the LEs on his own. Mental Status Patient Orientation: Person Attachments: Oxygen, Addison Catheter, IV Transfers SCALE: Activities may be completed with or without assistive devices. 2-Jvwmorzohr-mzngnzh completes the activity by him/herself with no assistance from a helper. 5-Set-up or Clean-up Assistance-helper sets up or cleans up; patient completes activity. [place] assists only prior to or following the activity. 4-Supervision or Touching Assistance-helper provides verbal cues and/or touching/steadying and/or contact guard assistance as patient completes activit y. Assistance may be provided throughout the activity or intermittently. 3-Partial/Moderate Assistance-helper does LESS THAN HALF the effort. [place] lifts, holds or supports trunk or limbs, but provides less than half the effort. 2-Substantial/Maximal Assistance-helper does MORE THAN HALF the effort. [place] lifts or holds trunk or limbs and provides more than half the effort. 0-Gytumcxgi-ubyksq does ALL the effort. Patient does none of the effort to complete the activity. Or, the assistance of 2 or more helpers is required for the patient to complete the activity. If activity was not attempted, code reason: 7-Patient Refused. 9-Not Applicable-not attempted and the patient did not perform the activity before the current illness, exacerbation or injury. 10-Not Attempted due to Environmental Limitations-(lack of equipment, weather restraints, etc.). 88-Not Attempted due to Medical Conditions or Safety Concerns. Roll Left & Right (QC): 2 Sit to Lying (QC): 2 Lying to Sitting/Side of Bed(Q: 2 Sit to Stand (QC): 2 Chair/Ord-ay-Dqkda Xfer(QC): 2 Weight Bearing Right Lower Extremity: Right Weight Bearing/Tolerated Left Lower Extremity: Left Full Weight Bearing Gait Training Does the Patient Walk?: No and Walking Goal IS indicated Treatments Patient required maximal amount of extra time to perform bed mobility and transfers. He frequently refused assistance from PT, and attempts to move his LEs forward, however little to no movement occurs. Patient eventually allowed PT to assist with movements of LEs and required max A for bed mobility and supine to sit. Patient then requested to move forwards on his own and again required maximal amounts of time. Towards the end of treatment, ZEPEDA entered the room and assisted with bed to chair transfer. Patient in chair with ZEPEDA and student in the room post PT treatment. Assessment Patient required maximal amount of extra time to perform bed mobility and transfers. He frequently refused assistance from PT, and attempts to move his LEs forward, however little to no movement occurs. Patient eventually allowed PT to assist with movements of LEs and required max A for bed mobility and supine to sit. Patient then requested to move forwards on his own and again required maximal amounts of time. Towards the end of treatment, ZEPEDA entered the room and assisted with bed to chair transfer. Patient in chair with ZEPEDA and student in the room post PT treatment. PT Snf Goals Snf Goals PT Snf Goals Time Frame: Aug 05, 2021 Roll Left & Right (QC): 3 Sit to Lying (QC): 3 Lying-Sitting on Side/Bed(QC): 3 PT Plan Treatment/Plan Treatment Plan: Continue Plan of Care Treatment Plan: Bed Mobility, Education, Functional Activity Virgilio, Functional Strength, Gait, Safety, Therapeutic Exercise, Transfers Treatment Duration: Aug 05, 2021 Frequency: 11 times per week Estimated Hrs Per Day: .25 hour per day Patient and/or Family Agrees t: Yes Safety Risks/Education Patient Education: Transfer Techniques, Reviewed Precautions, Safety Issues Teaching Recipient: Patient Teaching Methods: Demonstration, Discussion Response to Teaching: Reinforcement Needed Time/GCodes Time In: 0943 Time Out: 1025 Total Billed Treatment Time: 42 Total Billed Treatment Visit, FA (3) LA NENA NUR PT Jul 30, 2021 10:50
--- NOTE | 2021-07-30 11:53 | Occupational Ther Daily Note ---
OT Current Status-Daily Note Subjective Pt alert, sitting EOB with PT. Assisted PT to transfer pt from EOB to recliner. Pt c/o pain and movement. Pt very fearful about movement and increased pain. Mental Status/Objective Patient Orientation: Person Attachments: Addison Catheter, IV, Oxygen ADL-Treatment Therapy Code Descriptions/Definitions Functional [place] Measure: 0=Not Assessed/NA 4=Minimal Assistance 1=Total Assistance 5=Supervision or Setup 2=Maximal Assistance 6=Modified [place] 3=Moderate Assistance 7=Complete IndependenceSCALE: Activities may be completed with or without assistive devices. 6-Yiceosxltg-lkkyysr completes the activity by him/herself with no assistance from a helper. 5-Set-up or Clean-up Assistance-helper sets up or cleans up; patient completes activity. [place] assists only prior to or following the activity. 4-Supervision or Touching Assistance-helper provides verbal cues and/or touching/steadying and/or contact guard assistance as patient completes activity. Assistance may be provided throughout the activity or intermittently. 3-Partial/Moderate Assistance-helper does LESS THAN HALF the effort. [place] lifts, holds or supports trunk or limbs, but provides less than half the effort. 2-Substantial/Maximal Assistance-helper does MORE THAN HALF the effort. [place] lifts or holds trunk or limbs and provides more than half the effort. 0-Djkxhbaex-nepzhv does ALL the effort. Patient does none of the effort to complete the activity. Or, the assistance of 2 or more helpers is required for the patient to complete the activity. If activity was not attempted, code reason: 7-Patient Refused. 9-Not Applicable-not attempted and the patient did not perform the activity before the current illness, exacerbation or injury. 10-Not Attempted due to Environmental Limitations-(lack of equipment, weather restraints, etc.). 88-Not Attempted due to Medical Conditions or Safety Concerns. Other Treatment Max A x2 for SPT from EOB to recliner. Offered to assist pt to wash up, pt answered no multiple times and glared at ZEPEDA/L. Pt assisted with changing hospital gown. Then pt fixated on getting his bed made and escalated agitation. After therapy, pt sitting in recliner with call light/phone in reach. All needs met in room. OT Halfway Goals Halfway Goals Time Frame: Aug 13, 2021 Eating (QC): 6 Oral Hygiene (QC): 6 Toileting Hygiene (QC): 3 Shower/Bathe Self (QC): 3 Upper Body Dressing (QC): 5 Lower Body Dressing (QC): 3 On/Off Footwear (QC): 3 Additional Goals: 1-Demonstrate ADL Tasks, 2-Verbalize Understanding, 3- ImproveStrength/Virgilio 1=Demonstrate adherence to instructed precautions during ADL tasks. 2=Patient will verbalize/demonstrate understanding of assistive devices/mo difications for ADL. 3=Patient will improve strength/tolerance for activity to enable patient to perform ADL's. OT Education/Plan Problem List/Assessment Assessment: Decreased Activ Tolerance, Decreased UE Strength, Dependent Transfers, Impaired Self-Care Skills Discharge Recommendations Plan/Recommendations: Continue POC Treatment Plan/Plan of Care Patient would benefit from OT for education, treatment and training to promote independence in ADL's, mobility, safety and/or upper extremity function for ADL's. Plan of Care: ADL Retraining, Functional Mobility, UE Funct Exercise/Act Treatment Duration: Aug 13, 2021 Frequency: 5 times per week Estimated Hrs Per Day: .25 hour per day Rehab Potential: Guarded Time/GCodes Start Time: 10:15 Stop Time: 10:30 Total Time Billed (hr/min): 15 Billed Treatment Time 1 visit-FA 1 (15 min) GEOVANY OLSON Jul 30, 2021 11:53
[2021-07-30] MEDS ORDERED: NS IV 500 ML 500 ML ONE (12:35)
--- NOTE | 2021-07-30 14:30 | Physical Therapy Progress Note ---
Therapy Progress Note Patient lying supine in bed with family in the room upon PT arrival. Patient receiving units of blood, nurse consulted and requests hold this afternoon. Will attempt treatment again in the am as patient is able to tolerate. LA NENA NUR PT Jul 30, 2021 14:30
--- NOTE | 2021-07-30 16:07 | Progress Note - Hospitalist ---
Subjective HPI/CC On Admission Date Seen by Provider: Jul 30, 2021 Time Seen by Provider: 16:03 Patient is an 86-year-old male with past medical history of atrial fibrillation, DVT, coronary artery disease status post stenting, hypertension, hyperlipidemia, stroke who presented to the emergency department after a fall. He reports his legs gave out on him and he fell onto his right hip. EMS was summoned due to his pain and inability to move. In the emergency room he was found to have a right hip fracture and has been admitted for operative care later today. This morning he complains of pain and is requesting a pain shot. He is also preemptively apologizing for "cussing everyone out" because he knows he will be in very severe pain and thinks he will be unable to control his temper. Subjective/Events-last exam Pt up in chair. No complaints at the moment. Pain is sever with therapy though. Objective Exam Vital Signs Vital Signs Date Time Temp Pulse Resp B/P (MAP) Pulse Ox O2 Delivery O2 Flow Rate FiO2 07/30/21 15:30 36.6 110 26 128/57 (80) 100 Nasal Cannula 2.00 Capillary Refill : Less Than 3 SecondsLess Than 3 Seconds General Appearance: No Apparent Distress, Chronically ill, Thin Respiratory: Lungs Clear, No Respiratory Distress Cardiovascular: Regular Rate, Rhythm, No Murmur Neurologic/Psychiatric: Alert, Oriented x3 Results/Procedures Lab Laboratory Tests 07/29/21 16:24 07/30/21 04:50 Patient resulted labs reviewed. Imaging: Reviewed Imaging Report Assessment/Plan Assessment and Plan Assess & Plan/Chief Complaint Right hip fracture Falls Debility POD #2 Pain regimen per Ortho Continue pain regimen PT/OT post op Will likely need placement, SW consulted and referral sent to [facility] Creatinine improved to 1.4 today Potassium improved as well Monitor UOP closely Anemia postoperative Hgb 6.3, pRBCs ordered this AM Check in AM A-fib with RVR- now resolved Noncompliance Dilated cardiomyopathy, EF 5/20- 15-20% Mitral regurgitation Tricupsid regurgiation CAD Long standing a fib Rate improved Cardiology consulted, appreciate recs Continue home meds when able Monitor on telemetry DVT ppx: Eliquis on hold for anemia ION CONCEPCION MD Jul 30, 2021 16:07
[2021-07-30] MEDS: HYDROcodone/APAP 5 MG/325 MG (LORTAB) TAB PO PRN (21:45)
[2021-07-31] VITALS (7 sets, daily range): BP systolic 92–121; BP diastolic 57–71
[2021-07-31 03:26] LABS: HEMOGLOBIN 8.7 g/dL (13.3-17.7)
[2021-07-31] MEDS: HYDROcodone/APAP 5 MG/325 MG (LORTAB) TAB PO PRN ×2 (03:42→20:21)
[2021-07-31 03:49] LABS: POTASSIUM 3.1 MMOL/L (3.6-5.0)
[2021-07-31 03:50] LABS: CALCIUM 8.6 MG/DL (8.5-10.1)
[2021-07-31 03:54] LABS: CREATININE SERUM 0.8 MG/DL (0.60-1.30)
[2021-07-31] MEDS: MULTIVIT W/MINERALS TAB (THERAGRAN M) PO SCH (06:14)
--- NOTE | 2021-07-31 08:48 | Progress Note ---
Standard Progress Note Progress Notes/Assess & Plan Date Seen by a Provider: Jul 31, 2021 Time Seen by a Provider: 08:47 Progress/Assessment & Plan post op check Radiographs--HW well positioned without fracture RLE--1 plus DP pulse with brisk cap refill intact DF and PF of toes and ankle with intact sensation to light touch throughout s/p R hip bipolar mobilize as able Final Diagnosis feelling better Vital Signs Date Time Temp Pulse Resp B/P (MAP) Pulse Ox O2 Delivery O2 Flow Rate FiO2 07/31/21 08:00 Nasal Cannula 2.00 07/31/21 07:20 37.2 108 28 115/62 (79) 100 Nasal Cannula 2.00 07/31/21 07:00 88 07/31/21 03:33 36.3 105 18 112/63 (79) 99 Nasal Cannula 2.00 07/31/21 01:00 92 07/31/21 00:52 36.7 86 18 116/70 100 Nasal Cannula 2.00 07/31/21 00:37 36.9 98 18 117/71 100 Nasal Cannula 2.00 07/30/21 23:01 36.9 100 18 100/68 (79) 100 Nasal Cannula 2.00 07/30/21 22:38 36.9 96 18 112/65 100 Nasal Cannula 2.00 07/30/21 22:09 37.0 103 18 131/63 100 Nasal Cannula 2.00 07/30/21 20:00 Nasal Cannula 2.00 07/30/21 19:51 37.2 100 28 120/56 (77) 95 Nasal Cannula 2.00 07/30/21 19:00 117 07/30/21 16:38 36.6 95 18 138/63 99 Nasal Cannula 2.00 07/30/21 16:23 36.6 110 26 128/57 100 Nasal Cannula 2.00 07/30/21 15:30 36.6 110 26 128/57 (80) 100 Nasal Cannula 2.00 07/30/21 13:08 36.6 101 18 125/67 94 Nasal Cannula 2.00 07/30/21 12:58 37.0 116 18 129/60 98 Nasal Cannula 2.00 07/30/21 12:53 36.6 115 24 129/68 (88) 96 Nasal Cannula 2.00 07/30/21 12:25 107 07/30/21 09:56 35.7 I & O 07/31/21 07:00 Intake Total 1310 ml Output Total 3175 ml Balance -1865 ml Laboratory Tests Test 07/31/21 03:10 Range/Units Hemoglobin 8.7 #L 13.3-17.7 g/dL Hematocrit 27 L 40-54 % Sodium Level 140 135-145 MMOL/L Potassium Level 3.1 L 3.6-5.0 MMOL/L Chloride Level 105 98-107 MMOL/L Carbon Dioxide Level 25 21-32 MMOL/L Anion Gap 10 5-14 MMOL/L Blood Urea Nitrogen 25 H 7-18 MG/DL Creatinine 0.80 0.60-1.30 MG/DL Estimat Glomerular Filtration Rate 92 BUN/Creatinine Ratio 31 Glucose Level 119 H 70-105 MG/DL Calcium Level 8.6 8.5-10.1 MG/DL RLE--incision with mild bloody DC no erythema no calf tenderness s/p R hip bipolar PT/OT may require placement TOMAS COX MD Jul 31, 2021 08:48
--- NOTE | 2021-07-31 10:11 | Progress Note - Hospitalist ---
Subjective HPI/CC On Admission Date Seen by Provider: Jul 31, 2021 Time Seen by Provider: 10:06 Patient is an 86-year-old male with past medical history of atrial fibrillation, DVT, coronary artery disease status post stenting, hypertension, hyperlipidemia, stroke who presented to the emergency department after a fall. He reports his legs gave out on him and he fell onto his right hip. EMS was summoned due to his pain and inability to move. In the emergency room he was found to have a right hip fracture and has been admitted for operative care later today. This morning he complains of pain and is requesting a pain shot. He is also preemptively apologizing for "cussing everyone out" because he knows he will be in very severe pain and thinks he will be unable to control his temper. Subjective/Events-last exam Patient working with PT. No complaints for me though complains of pain with mo vement. RN reports family was concerned about left eye swelling. He denies any swelling to his eyes. No appreciable swelling on exam either by myself supervisor [employer]. Objective Exam Vital Signs Vital Signs Date Time Temp Pulse Resp B/P (MAP) Pulse Ox O2 Delivery O2 Flow Rate FiO2 07/31/21 08:00 Nasal Cannula 2.00 07/31/21 07:20 37.2 108 28 115/62 (79) 100 Capillary Refill : Less Than 3 SecondsLess Than 3 Seconds General Appearance: Chronically ill, Thin Respiratory: Lungs Clear, No Respiratory Distress Cardiovascular: Regular Rate, Rhythm, No Murmur Neurologic/Psychiatric: Alert, Oriented x3 Results/Procedures Lab Laboratory Tests 07/31/21 03:10 Patient resulted labs reviewed. Imaging: Reviewed Imaging Report Assessment/Plan Assessment and Plan Assess & Plan/Chief Complaint Right hip fracture Falls Debility POD #3 Pain regimen per Ortho Continue pain regimen PT/OT post op Will likely need placement, SW consulted and referral sent to [facility]- resolved Creatinine improved to 0.8 Potassium actually low today, will replace Anemia postoperative Hgb up to 8.7 s/p 2 units pRBC trend A-fib with RVR- now resolved Noncompliance Dilated cardiomyopathy, EF 5/20- 15-20% Mitral regurgitation Tricupsid regurgiation CAD Long standing a fib Rate improved Cardiology consulted, appreciate recs Continue home meds when able Monitor on telemetry DVT ppx: Eliquis on hold for anemia ION CONCEPCION MD Jul 31, 2021 10:11
[2021-07-31] MEDS ORDERED: CARBAM PEROX/GLYC/PROP 15 ML DROPS (DEBROX) EACH EAR PRN (10:30)
[2021-07-31] MEDS ORDERED: KCL 20 MEQ TAB (K-DUR) PO ONE (10:30)
[2021-07-31] MEDS: SENNOSIDES 8.6 MG (SENOKOT) TAB PO SCH ×2 (10:49→20:20)
--- NOTE | 2021-07-31 11:12 | Cardiology Progress Note ---
Progress Note-Cardiology Events since last exam Date Seen by Provider: Jul 31, 2021 Time Seen by Provider: 11:05 Events since last exam We are seeing him due to atrial fibrillation and chronic heart failure. When I saw him, he was sitting up in a chair drinking a Coca-Cola. He denied chest discomfort. He states his breathing is about baseline. He denies palpitations, syncope, or ankle edema. Certain portions of this document may have been dictated utilizing voice recognition technology. Inherent to this technology, typographical and grammatical errors may exist. As much as I am diligent to identify and correct these mistakes, some errors may remain in the document. Vitals Last set of Vitals Signs Vital Signs 07/31/21 07/31/21 07:20 08:00 Temp 37.2 Pulse 108 Resp 28 B/P (MAP) 115/62 (79) Pulse Ox 100 O2 Delivery Nasal Cannula O2 Flow Rate 2.00 Labs Labs Laboratory Tests 07/31/21 03:10 Exam Vital Signs Vital Signs Date Time Temp Pulse Resp B/P (MAP) Pulse Ox O2 Delivery O2 Flow Rate FiO2 07/31/21 08:00 Nasal Cannula 2.00 07/31/21 07:20 37.2 108 28 115/62 (79) 100 Physical Exam General: Alert. No acute distress. Eye: No xanthelasma. HENT: Normocephalic. Neck: Jugular venous pressure does not appear elevated. Respiratory: Lungs are clear to auscultation. Respirations are non-labored. Breath sounds are equal. Symmetrical chest wall expansion. Cardiovascular: Normal rate. Irregular rhythm. No murmur. No gallop. No edema. Gastrointestinal: Soft. Normal bowel sounds. Skin: Warm. Dry. Neurologic: Cranial nerves 3-11 grossly intact. Psychiatric: Cooperative. Appropriate mood & affect. Labs Laboratory Tests Test 07/31/21 03:10 Range/Units Hemoglobin 8.7 #L 13.3-17.7 g/dL Hematocrit 27 L 40-54 % Sodium Level 140 135-145 MMOL/L Potassium Level 3.1 L 3.6-5.0 MMOL/L Chloride Level 105 98-107 MMOL/L Carbon Dioxide Level 25 21-32 MMOL/L Anion Gap 10 5-14 MMOL/L Blood Urea Nitrogen 25 H 7-18 MG/DL Creatinine 0.80 0.60-1.30 MG/DL Estimat Glomerular Filtration Rate 92 BUN/Creatinine Ratio 31 Glucose Level 119 H 70-105 MG/DL Calcium Level 8.6 8.5-10.1 MG/DL Diagnosis/Problems Diagnosis/Problems (1) Permanent atrial fibrillation Assessment & Plan: Heart rates are intermittently elevated but for the most part remain less than 110 bpm. He is intolerant of beta-charleen. We will continue the present dose of diltiazem. I would be hesitant to give him digoxin given the severity of the acute kidney injury that occurred during this admission which would predispose him to future episodes of acute kidney injury that could then result in digoxin toxicity if he is taking digoxin chronically. We will resume apixaban when his anemia stabilizes. Although he is over the age of 81, his baseline creatinine is less than 1.5 and his weight is over 60 kg. As such, there is no indication to give him the reduced dose of apixaban. When he is deemed to be ready to restart apixaban, he should be taking 5 mg twice a day as he was at home. (2) Acute on chronic systolic heart failure Assessment & Plan: Symptomatically he seems to be doing well although his mobility is somewhat limited due to the hip surgery. I will obtain a follow-up chest x-ray. He is intolerant of most of the guideline directed medical therapy due to a variety of different side effects he experienced in the past. (3) Coronary artery disease without angina pectoris Assessment & Plan: He has not been having any angina. As above, he is intolerant of beta-blockers. Likewise, he is intolerant of statin medications. He was taking both aspirin and apixaban at home. I would suggest stopping his aspirin given his advanced age and level of frailty. (4) Cardiomyopathy Assessment & Plan: He has had a low ejection fraction for a number of years. He is not an ideal candidate for prophylactic defibrillator due to advanced age and underlying probable dementia. He has not tolerated any of the guideline directed medical therapy in the past. (5) Primary hypertension Assessment & Plan: Blood pressure is reasonably controlled on the present dose of diltiazem. (6) Acute kidney injury Assessment & Plan: Possibly related to surgery. This has now resolved and his renal function is back to his baseline. (7) Anemia Assessment & Plan: Possibly related to surgery. This now seems to have stabilized. Apixaban had been on hold due to the anemia. We will plan to resume the apixaban when okay with orthopedic surgery and the hospitalist. NUBIA VALENCIA JR, MD Jul 31, 2021 11:12
[2021-07-31 11:25] LABS: CALCIUM 8.9 MG/DL (8.5-10.1); CREATININE SERUM 0.85 MG/DL (0.60-1.30); POTASSIUM 3.3 MMOL/L (3.6-5.0)
--- NOTE | 2021-07-31 11:47 | Physical Therapy Daily Note ---
PT Daily Note-Current Subjective Pt. in bed, states "I'm wet." Pt. agrees to sit up in chair, with therapist encouragement, to allow change of bedding and nursing to assess sacral wound. Pt. c/o pain during session in the R hip but no objective pain rating given. Transfers SCALE: Activities may be completed with or without assistive devices. 8-Ollhoxlwrw-mdelajb completes the activity by him/herself with no assistance from a helper. 5-Set-up or Clean-up Assistance-helper sets up or cleans up; patient completes activity. [place] assists only prior to or following the activity. 4-Supervision or Touching Assistance-helper provides verbal cues and/or touching/steadying and/or contact guard assistance as patient completes activity. Assistance may be provided throughout the activity or intermittently. 3-Partial/Moderate Assistance-helper does LESS THAN HALF the effort. [place] lifts, holds or supports trunk or limbs, but provides less than half the effort. 2-Substantial/Maximal Assistance-helper does MORE THAN HALF the effort. [place] lifts or holds trunk or limbs and provides more than half the effort. 6-Jumqkcxuh-rdcuhf does ALL the effort. Patient does none of the effort to complete the activity. Or, the assistance of 2 or more helpers is required for the patient to complete the activity. If activity was not attempted, code reason: 7-Patient Refused. 9-Not Applicable-not attempted and the patient did not perform the activity before the current illness, exacerbation or injury. 10-Not Attempted due to Environmental Limitations-(lack of equipment, weather restraints, etc.). 88-Not Attempted due to Medical Conditions or Safety Concerns. Lying to Sitting/Side of Bed(Q: 1 Sit to Stand (QC): 1 Chair/Jpy-fx-Hgnrb Xfer(QC): 1 Weight Bearing Right Lower Extremity: Right Weight Bearing/Tolerated Left Lower Extremity: Left Full Weight Bearing Treatments transfers out of bed and bed to chair Assessment Current Status: Poor Progress, Fair Progress Pt. is very slow with movement and does not allow therapist to assist with m ovement of LE's. Pt. is very adament during during transfers to do everything (I) due to fear of pain, however has poor ability to move himself. Pt. needs assist of 2 for transfers and significant time allowed for patient to complete transfer ability as able. He becomes easily irritated with therapist and does not listen to cues for safety during transfer. He frequently lets go of walker and had significant lean to L during bed to chair transfer. Pt. up in chair post session with call light and all needs met. PT Applique Cutter Goals Applique Cutter Goals PT Fpc Goals Time Frame: Aug 05, 2021 Roll Left & Right (QC): 3 Sit to Lying (QC): 3 Lying-Sitting on Side/Bed(QC): 3 PT Plan Treatment/Plan Treatment Plan: Continue Plan of Care Treatment Plan: Bed Mobility, Education, Functional Activity Virgilio, Functional Strength, Gait, Safety, Therapeutic Exercise, Transfers Treatment Duration: Aug 05, 2021 Frequency: 11 times per week Estimated Hrs Per Day: .25 hour per day Patient and/or Family Agrees t: Yes Time/GCodes Time In: 907 Time Out: 939 Total Billed Treatment Time: 32 Total Billed Treatment 1, FA 32' SULEIMAN EL PT Jul 31, 2021 11:47
[2021-08-01] VITALS (7 sets, daily range): BP systolic 104–154; BP diastolic 60–65
[2021-08-01] MEDS: MULTIVIT W/MINERALS TAB (THERAGRAN M) PO SCH (06:17)
[2021-08-01 06:26] LABS: HEMOGLOBIN 8.7 g/dL (13.3-17.7)
[2021-08-01] MEDS: SENNOSIDES 8.6 MG (SENOKOT) TAB PO SCH ×2 (08:40→20:54)
--- NOTE | 2021-08-01 10:32 | Progress Note - Hospitalist ---
Subjective HPI/CC On Admission Date Seen by Provider: Aug 01, 2021 Time Seen by Provider: 10:30 Patient is an 86-year-old male with past medical history of atrial fibrillation, DVT, coronary artery disease status post stenting, hypertension, hyperlipidemia, stroke who presented to the emergency department after a fall. He reports his legs gave out on him and he fell onto his right hip. EMS was summoned due to his pain and inability to move. In the emergency room he was found to have a right hip fracture and has been admitted for operative care later today. This morning he complains of pain and is requesting a pain shot. He is also preemptively apologizing for "cussing everyone out" because he knows he will be in very severe pain and thinks he will be unable to control his temper. Subjective/Events-last exam Pt reports doing ok. Feels his pain medicine is starting to wear off and is re questing another dose if able. Also requests a straw. No other issues. Objective Exam Vital Signs Vital Signs Date Time Temp Pulse Resp B/P (MAP) Pulse Ox O2 Delivery O2 Flow Rate FiO2 08/01/21 08:00 Nasal Cannula 2.00 08/01/21 07:16 36.0 123 24 137/60 (85) 94 Capillary Refill : Less Than 3 SecondsLess Than 3 Seconds General Appearance: No Apparent Distress, Chronically ill, Thin Respiratory: Lungs Clear, No Respiratory Distress Cardiovascular: Irregularly Irregular, Tachycardia (low 100s) Gastrointestinal: Normal Bowel Sounds, Non Tender, Soft Neurologic/Psychiatric: Alert, Oriented x3 Results/Procedures Lab Laboratory Tests 07/31/21 11:00 08/01/21 05:45 Patient resulted labs reviewed. Imaging: Reviewed Imaging Report Assessment/Plan Assessment and Plan Assess & Plan/Chief Complaint Right hip fracture Falls Debility POD #4 Pain regimen per Ortho Continue pain regimen PT/OT post op Will likely need placement, ANGIE consulted and referral sent to [facility]- resolved Creatinine stable Anemia postoperative Hgb up to 8.7 s/p 2 units pRBC- stable today trend A-fib with RVR- now resolved Noncompliance Dilated cardiomyopathy, EF 5/20- 15-20% Mitral regurgitation Tricupsid regurgiation CAD Long standing a fib Rate improved, was up to 120s before meds but improved with oral diltiazem Cardiology consulted, appreciate recs Monitor on telemetry DVT ppx: Eliquis on hold for anemia ION CONCEPCION MD Aug 01, 2021 10:32
[2021-08-01] MEDS: fentaNYL INJ 100 MCG/2 ML AMP IVP PRN (10:49)
--- NOTE | 2021-08-01 11:24 | Physical Therapy Daily Note ---
PT Daily Note-Current Subjective Pt. in bed with family and nurse present, adamantly refuses to get out of bed but family able to eventually convince him to get up to chair. Pt. is resistant to therapist assistance during transfers, frequently stating "I will do it!" Transfers SCALE: Activities may be completed with or without assistive devices. 7-Iwfbxslhxy-iwgpvxb completes the activity by him/herself with no assistance from a helper. 5-Set-up or Clean-up Assistance-helper sets up or cleans up; patient completes activity. [place] assists only prior to or following the activity. 4-Supervision or Touching Assistance-helper provides verbal cues and/or touching/steadying and/or contact guard assistance as patient completes activity. Assistance may be provided throughout the activity or intermittently. 3-Partial/Moderate Assistance-helper does LESS THAN HALF the effort. [place] lifts, holds or supports trunk or limbs, but provides less than half the effort. 2-Substantial/Maximal Assistance-helper does MORE THAN HALF the effort. [place] lifts or holds trunk or limbs and provides more than half the effort. 5-Yvzuvlmku-kviwww does ALL the effort. Patient does none of the effort to complete the activity. Or, the assistance of 2 or more helpers is required for the patient to complete the activity. If activity was not attempted, code reason: 7-Patient Refused. 9-Not Applicable-not attempted and the patient did not perform the activity be fore the current illness, exacerbation or injury. 10-Not Attempted due to Environmental Limitations-(lack of equipment, weather restraints, etc.). 88-Not Attempted due to Medical Conditions or Safety Concerns. Lying to Sitting/Side of Bed(Q: 2 Sit to Stand (QC): 1 Chair/Sec-ct-Ygdwa Xfer(QC): 1 Weight Bearing Right Lower Extremity: Right Weight Bearing/Tolerated Left Lower Extremity: Left Full Weight Bearing Gait Training Does the Patient Walk?: Yes Distance: 3 ft to chair Gait Persons Needed: 2 Gait Assistive Device: FWW Treatments transfers supine to sit, sit to stand, bed to chair Assessment Current Status: Fair Progress Pt. is very slow with movement and resistive to therapist assistance during transfers. He continues to require mod-max A x 2 to stand and transfer to chair. He did have improved standing balance during transfer today and was able to take a few steps today. Pt. up in chair post session with call light and all needs met. PT Paper Gluing Operator Goals Paper Gluing Operator Goals PT Skilled Nursing Goals Time Frame: Aug 05, 2021 Roll Left & Right (QC): 3 Sit to Lying (QC): 3 Lying-Sitting on Side/Bed(QC): 3 PT Plan Treatment/Plan Treatment Plan: Continue Plan of Care Treatment Plan: Bed Mobility, Education, Functional Activity Virgilio, Functional Strength, Gait, Safety, Therapeutic Exercise, Transfers Treatment Duration: Aug 05, 2021 Frequency: 11 times per week Estimated Hrs Per Day: .25 hour per day Patient and/or Family Agrees t: Yes Time/GCodes Time In: 1050 Time Out: 1115 Total Billed Treatment Time: 25 Total Billed Treatment 1, FA 25' SULEIMAN EL PT Aug 01, 2021 11:24
--- NOTE | 2021-08-01 11:24 | Progress Note ---
Standard Progress Note Progress Notes/Assess & Plan Date Seen by a Provider: Aug 01, 2021 Time Seen by a Provider: 11:22 Progress/Assessment & Plan post op check Radiographs--HW well positioned without fracture RLE--1 plus DP pulse with brisk cap refill intact DF and PF of toes and ankle with intact sensation to light touch throughout s/p R hip bipolar mobilize as able Final Diagnosis up in chair Vital Signs Date Time Temp Pulse Resp B/P (MAP) Pulse Ox O2 Delivery O2 Flow Rate FiO2 08/01/21 08:00 Nasal Cannula 2.00 08/01/21 07:16 36.0 123 24 137/60 (85) 94 Nasal Cannula 2.00 08/01/21 07:00 104 08/01/21 03:30 36.6 105 22 105/60 (75) 98 Nasal Cannula 2.00 08/01/21 01:00 95 08/01/21 00:48 36.6 63 22 104/62 (76) 94 Nasal Cannula 2.00 07/31/21 20:00 Nasal Cannula 2.00 07/31/21 19:38 37.2 102 24 121/60 (80) 94 Nasal Cannula 2.00 07/31/21 19:00 112 07/31/21 15:46 36.9 96 22 92/61 (71) 99 Nasal Cannula 2.00 07/31/21 12:45 106 I & O 08/01/21 06:59 Intake Total 3480 ml Output Total 850 ml Balance 2630 ml Laboratory Tests Test 08/01/21 05:45 Range/Units Hemoglobin 8.7 L 13.3-17.7 g/dL Hematocrit 27 L 40-54 % R hip with sl bloody Dc no erythema or warmth no calf tenderness s/p R hip bipolar will likely require placement ok to start TOMAS Cormier Dc, MD Aug 01, 2021 11:24
--- NOTE | 2021-08-01 11:51 | Cardiology Progress Note ---
Progress Note-Cardiology Events since last exam Date Seen by Provider: Aug 01, 2021 Time Seen by Provider: 11:46 Events since last exam We are following him for atrial fibrillation and heart failure. He was sitting up in a chair and quite conversive today. He denies chest pain, dyspnea at rest, palpitations, syncope, or ankle edema. Certain portions of this document may have been dictated utilizing voice r ecognition technology. Inherent to this technology, typographical and grammatical errors may exist. As much as I am diligent to identify and correct these mistakes, some errors may remain in the document. Vitals Last set of Vitals Signs Vital Signs 08/01/21 11:29 Temp 36.0 Pulse 141 Resp 24 B/P (MAP) 120/62 (81) Pulse Ox 97 O2 Delivery Nasal Cannula O2 Flow Rate 2.00 Labs Labs Laboratory Tests 08/01/21 05:45 Exam Vital Signs Vital Signs Date Time Temp Pulse Resp B/P (MAP) Pulse Ox O2 Delivery O2 Flow Rate FiO2 08/01/21 11:29 36.0 141 24 120/62 (81) 97 Nasal Cannula 2.00 Physical Exam General: Alert. No acute distress. Eye: No xanthelasma. HENT: Normocephalic. Neck: Jugular venous pressure does not appear elevated. Respiratory: Lungs are clear to auscultation. Respirations are non-labored. Breath sounds are equal. Symmetrical chest wall expansion. Cardiovascular: Tachycardia with irregular rhythm. No murmur. No gallop. No edema. Gastrointestinal: Soft. Normal bowel sounds. Skin: Warm. Dry. Neurologic: Alert and oriented to person, place, time. Cranial nerves 3-11 grossly intact. Psychiatric: Cooperative. Appropriate mood & affect. Labs Laboratory Tests Test 08/01/21 05:45 Range/Units Hemoglobin 8.7 L 13.3-17.7 g/dL Hematocrit 27 L 40-54 % Diagnosis/Problems Diagnosis/Problems (1) Permanent atrial fibrillation Assessment & Plan: Heart rates are more elevated today. He is intolerant of beta-charleen. I will increase the dose of diltiazem CD to 240 mg twice daily. At home he was taking 480 mg once a day and an additional 120 mg daily. I would be hesitant to give him digoxin given the severity of the acute kidney injury that occurred during this admission which would predispose him to future episodes of acute kidney injury that could then result in digoxin toxicity if he is taking digoxin chronically. He did have 1 low hemoglobin level but it turns out this was a diluted sample. His follow-up hemoglobin levels have been at his baseline. I will resume his home dose of apixaban. Although he is over the age of 81, his weight is over 60 kg and creatinine less than 1.5 mg/dL. As such, there is no indication to have him on the reduced dose of apixaban. (2) Acute on chronic systolic heart failure Assessment & Plan: Symptomatically he seems to be doing well although his mobility is somewhat limited due to the hip surgery. He did have a chest x-ray on 07/31 but the images and report have not crossed over into [facility]. He is intolerant of most of the guideline directed medical therapy due to a variety of different side effects he experienced in the past. (3) Coronary artery disease without angina pectoris Assessment & Plan: He has not been having any angina. As above, he is intolerant of beta-blockers. Likewise, he is intolerant of statin medications. He was taking both aspirin and apixaban at home. I would suggest stopping his aspirin given his advanced age and level of frailty. (4) Cardiomyopathy Assessment & Plan: He has had a low ejection fraction for a number of years. He is not an ideal candidate for prophylactic defibrillator due to advanced age and underlying probable dementia. He has not tolerated any of the guideline directed medical therapy in the past. (5) Primary hypertension Assessment & Plan: Blood pressure is reasonably controlled on the present dose of diltiazem. We will need to watch his blood pressure as we increase the dose of diltiazem. (6) Acute kidney injury Assessment & Plan: Possibly related to surgery. This has now resolved and his renal function is back to his baseline. (7) Anemia Assessment & Plan: Possibly related to surgery. This now seems to have stabilized. On 07/31 I spoke to his nurse who told me that the very low hemoglobin level noticed a few days ago turned out to be a diluted sample. NUBIA VALENCIA JR, MD Aug 01, 2021 11:51
[2021-08-01] MEDS: HYDROcodone/APAP 5 MG/325 MG (LORTAB) TAB PO PRN ×2 (17:59→22:16)
[2021-08-01] MEDS: APIXABAN 5 MG (ELIQUIS) TABLET PO SCH (20:54)
[2021-08-01] MEDS ORDERED: APIXABAN 2.5 MG (ELIQUIS) TABLET PO SCH (21:00)
[2021-08-01] MEDS ORDERED: APIXABAN 5 MG (ELIQUIS) TABLET PO SCH (21:00)
[2021-08-02 04:00] VITALS: BP 102/68
[2021-08-02] MEDS: MULTIVIT W/MINERALS TAB (THERAGRAN M) PO SCH (06:01)
[2021-08-02] MEDS: HYDROcodone/APAP 5 MG/325 MG (LORTAB) TAB PO PRN ×4 (06:01→20:51)
[2021-08-02 06:31] LABS: HEMOGLOBIN 8.3 g/dL (13.3-17.7); WHITE BLOOD COUNT 4.1 10^3/uL (4.3-11.0)
[2021-08-02 06:43] LABS: POTASSIUM 3.6 MMOL/L (3.6-5.0)
[2021-08-02 06:44] LABS: CALCIUM 8.3 MG/DL (8.5-10.1)
[2021-08-02 06:48] LABS: CREATININE SERUM 0.6 MG/DL (0.60-1.30)
[2021-08-02 08:00] VITALS: BP 121/71
[2021-08-02] MEDS: SENNOSIDES 8.6 MG (SENOKOT) TAB PO SCH ×2 (08:49→20:51)
[2021-08-02] MEDS: APIXABAN 5 MG (ELIQUIS) TABLET PO SCH ×2 (08:49→20:49)
--- NOTE | 2021-08-02 09:01 | Progress Note - Cardiology ---
Cardiology SOAP Progress Note Objective: I&O/Vital Signs 08/02/21 08/03/21 08/03/21 08/03/21 23:52 01:00 03:01 07:17 Temp 36.5 36.6 Pulse 89 80 79 62 Resp 20 20 B/P (MAP) 117/60 (79) 90/55 (67) Pulse Ox 95 91 O2 Delivery Nasal Cannula Nasal Cannula O2 Flow Rate 2.00 08/03/21 08/03/21 08/03/21 08:00 08:00 08:30 Temp 36.5 Pulse 75 Resp 18 B/P (MAP) 113/72 (86) Pulse Ox 93 O2 Delivery Nasal Cannula Nasal Cannula Nasal Cannula O2 Flow Rate 2.00 2.00 2.00 08/03/21 00:00 Intake Total 800 ml Output Total 1200 ml Balance -400 ml Weight (Pounds): 163 Weight (Ounces): 2.0 Weight (Calculated Kilograms): 73.446710 Constitutional: AAO x 3, other (Thin and cachectic appearing) Respiratory: No accessory muscle use; other (fair air entry, diminished at the bases) Cardiovascular: irregularly irregular, S1 and S2, systolic murmur (soft ELIE at the cardiac base) Gastrointestional: No tender; soft; No guarding, No rebound; audible bowel sounds Extremities: No clubbing, No cyanosis, No significant edema Neurologic/Psychiatric: No oriented x 3; other (appears to move all limbs equally) Skin: No rash on exposed areas, No ulcerations on exposed areas Results/Procedures: Labs Laboratory Tests 08/03/21 08:00: White Blood Count 4.2L, Red Blood Count 2.66L, Hemoglobin 8.9L, Hematocrit 27L, Mean Corpuscular Volume 101H, Mean Corpuscular Hemoglobin 34, Mean Corpuscular Hemoglobin Concent 33, Red Cell Distribution Width 17.8H, Platelet Count 84L, Mean Platelet Volume 13.8H, Immature Granulocyte % (Auto) 3, Neutrophils (%) (Auto) 65, Lymphocytes (%) (Auto) 22, Monocytes (%) (Auto) 8, Eosinophils (%) (Auto) 1, Basophils (%) (Auto) 1, Neutrophils # (Auto) 2.7, Lymphocytes # (Auto) 0.9L, Monocytes # (Auto) 0.3, Eosinophils # (Auto) 0.0, Basophils # (Auto) 0.0, Immature Granulocyte # (Auto) 0.1, Percent Immature Platelet Fraction 18.4H 08/03/21 08:10: Sodium Level 137, Potassium Level 3.9, Chloride Level 103, Carbon Dioxide Level 27, Anion Gap 7, Blood Urea Nitrogen 17, Creatinine 0.65, Estimat Glomerular Filtration Rate 117, BUN/Creatinine Ratio 26, Glucose Level 106H, Calcium Level 8.7 A/P: Assessment: Marked post-op (R hip surg) anemia - improved following transfusion Thrombocytopenia - undetermined etiology - advise hematology consult Chronic A Fib, currently with RVR - Eliquis for stroke prophylaxis Acute renal failure with mild hyperkalemia - improved after hydration S/P non-syncopal fall leading to right hip fracture - reapair by Dr. Leung Nonsyncopal falls - leading to left hip fracture on 11-18-2020, treated with femoral neck fixation on 11/19/[address] Petit - recurrent fall on 07-27-21 leading to right hip fracture, being treated with right hip bipolar replacement by Dr. 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 - Last cath was on 05/20/14. It showed diffuse disease consisting of up to 50% stenoses in all cors. FFR across multiple mid-vessel LAD lesions was 0.92, indicating hemodynamic insignificance. There was a patent stent in mid LAD and in distal RCA. Distal RCA stent is known to be Promus [id number] placed in Aug 2012. LVEF on cath of May 2014 was 45% and LVEDP was mildly elevated Hyperlipidemia - but the patient is intolerant to statins. H/o postural hypotension - resolved following cessation of therapy with RYAN inhibitors and Terazosin. Multiple medication intolerances. See below. - Intolerance to beta-blockers on account of symptomatic bradycardia and hypotension. - Intolerance to RYAN inhibitors on account of postural hypotension - Intolerance to ARBs on account of dizziness. - Intolerance to statins - Intolerance to warfarin due to nonspecific symptoms and fear of side effects - has tolerated apixaban Carotid dz - Mild carotid arterial disease (less than 40%) per carotid ultrasonography of May 2016. Chronic moderate vertigo Chronic low back pain - s/p low low back kyphoplasty, but back pain has persisted Plan: * H/H improved following transfusions * Thrombocytopenia of undetermined etiology - advise hematology consult * Elevated liver enzymes of undetermined etiology - medical services managing * Continue long-acting diltiazem * Not suitable for beta-charleen (see under Assessment) * Monitor labs closely * Guarded prognosis due to multiple comorbidities and progressively deteriorating functional status and multiple nonsyncopal falls in the last several months CAITLYN SANTILLAN [facility] Aug 02, 2021 09:01
--- NOTE | 2021-08-02 10:17 | Physical Therapy Daily Note ---
PT Daily Note-Current Subjective Patient in bed pre tx, agrees to PT, has unrated pain in right hip. Appearance Patient in recliner post tx with nurse call, phone, tray, all needs met. Mental Status Patient Orientation: Person, Place, Situation Attachments: Oxygen, Addison Catheter Transfers SCALE: Activities may be completed with or without assistive devices. 9-Ornwpcgusv-giyjbtw completes the activity by him/herself with no assistance from a helper. 5-Set-up or Clean-up Assistance-helper sets up or cleans up; patient completes activity. [place] assists only prior to or following the activity. 4-Supervision or Touching Assistance-helper provides verbal cues and/or touching/steadying and/or contact guard assistance as patient completes ac tivity. Assistance may be provided throughout the activity or intermittently. 3-Partial/Moderate Assistance-helper does LESS THAN HALF the effort. [place] lifts, holds or supports trunk or limbs, but provides less than half the effort. 2-Substantial/Maximal Assistance-helper does MORE THAN HALF the effort. [place] lifts or holds trunk or limbs and provides more than half the effort. 2-Nceqntwby-gpvshu does ALL the effort. Patient does none of the effort to complete the activity. Or, the assistance of 2 or more helpers is required for the patient to complete the activity. If activity was not attempted, code reason: 7-Patient Refused. 9-Not Applicable-not attempted and the patient did not perform the activity before the current illness, exacerbation or injury. 10-Not Attempted due to Environmental Limitations-(lack of equipment, weather restraints, etc.). 88-Not Attempted due to Medical Conditions or Safety Concerns. Roll Left & Right (QC): 2 Lying to Sitting/Side of Bed(Q: 1 Sit to Stand (QC): 3 Chair/Giu-ga-Zrhis Xfer(QC): 3 Mod assist for sit to stand and transfer, patient was able to bear weight on right leg and take a few steps to the recliner, slowly, very painful. Weight Bearing Right Lower Extremity: Right Weight Bearing/Tolerated Left Lower Extremity: Left Full Weight Bearing Exercises Seated Therapy Exercises: Ankle pumps, Long arc quads Seated Reps: 20 Treatments bed mobility and transfers, LE exercise Assessment Current Status: Fair Progress improving functional mobility PT Chcf Goals Executive Talent Acquisition Consultant Goals PT Executive Talent Acquisition Consultant Goals Time Frame: Aug 05, 2021 Roll Left & Right (QC): 3 Sit to Lying (QC): 3 Lying-Sitting on Side/Bed(QC): 3 PT Plan Problem List Problem List: Activity Tolerance, Functional Strength, Safety, Balance, Gait, Transfer, Bed Mobility, ROM Treatment/Plan Treatment Plan: Continue Plan of Care Treatment Plan: Bed Mobility, Education, Functional Activity Virgilio, Functional Strength, Gait, Safety, Therapeutic Exercise, Transfers Treatment Duration: Aug 05, 2021 Frequency: 11 times per week Estimated Hrs Per Day: .25 hour per day Patient and/or Family Agrees t: Yes Safety Risks/Education Patient Education: Transfer Techniques, Correct Positioning, Safety Issues Teaching Recipient: Patient Teaching Methods: Demonstration, Discussion Response to Teaching: Reinforcement Needed Time/GCodes Time In: 0935 Time Out: 0950 Total Billed Treatment Time: 15 Total Billed Treatment 1 visit FA RAVEN ZHANG PT Aug 02, 2021 10:17
--- NOTE | 2021-08-02 10:47 | Diagnostic Imaging Report ---
INDICATION: Chronic systolic heart failure. FINDINGS: The upright portable chest shows marked generalized cardiomegaly with normal vascularity. The lungs are clear. There are small bilateral effusions. IMPRESSION: There is cardiomegaly with no failure. The vascularity and effusions have decreased since the 07/27/2021 study. Dictated by: Dictated on workstation # [id number]
--- NOTE | 2021-08-02 11:36 | Occupational Ther Daily Note ---
OT Current Status-Daily Note Subjective Pt alert, sitting in recliner. Pt requested to move back to bed. Educated pt on benefits of sitting up, he stated "I know that." Pt continued to be adamant about going back to bed. Family entered room. Mental Status/Objective Patient Orientation: Person, Place, Time, Situation Attachments: Addison Catheter, IV, Oxygen, Telemetry ADL-Treatment Therapy Code Descriptions/Definitions Functional [place] Measure: 0=Not Assessed/NA 4=Minimal Assistance 1=Total Assistance 5=Supervision or Setup 2=Maximal Assistance 6=Modified [place] 3=Moderate Assistance 7=Complete IndependenceSCALE: Activities may be completed with or without assistive devices. 1-Ijrcwqzqbq-tnqjciw completes the activity by him/herself with no assistance from a helper. 5-Set-up or Clean-up Assistance-helper sets up or cleans up; patient completes activity. [place] assists only prior to or following the activity. 4-Supervision or Touching Assistance-helper provides verbal cues and/or touching/steadying and/or contact guard assistance as patient completes activity. Assistance may be provided throughout the activity or intermittently. 3-Partial/Moderate Assistance-helper does LESS THAN HALF the effort. [place] lifts, holds or supports trunk or limbs, but provides less than half the effort. 2-Substantial/Maximal Assistance-helper does MORE THAN HALF the effort. [place] lifts or holds trunk or limbs and provides more than half the effort. 6-Ekfryqmod-dzwtfn does ALL the effort. Patient does none of the effort to complete the activity. Or, the assistance of 2 or more helpers is required for the patient to complete the activity. If activity was not attempted, code reason: 7-Patient Refused. 9-Not Applicable-not attempted and the patient did not perform the activity before the current illness, exacerbation or injury. 10-Not Attempted due to Environmental Limitations-(lack of equipment, weather restraints, etc.). 88-Not Attempted due to Medical Conditions or Safety Concerns. Other Treatment Pt kept wanting to move closer to bed with recliner. ZEPEDA encouraged pt to stand and take steps to transfer to bed, pt resisted but did comply after max encouragement. Max A for sit to stand. Pt had shuffling gate throughout transfer, did manipulate own FWW. Secondary assist to manipulate tubing and for safety. Pt required verbal cues as to when to move each LE. Max A x2 for EOB to supine then to scoot up in bed. After therapy, pt lying in bed with call light/phone in reach. All needs met in room. OT Under Cutter Goals Senior Care Goals Time Frame: Aug 13, 2021 Eating (QC): 6 Oral Hygiene (QC): 6 Toileting Hygiene (QC): 3 Shower/Bathe Self (QC): 3 Upper Body Dressing (QC): 5 Lower Body Dressing (QC): 3 On/Off Footwear (QC): 3 Additional Goals: 1-Demonstrate ADL Tasks, 2-Verbalize Understanding, 3- ImproveStrength/Virgilio 1=Demonstrate adherence to instructed precautions during ADL tasks. 2=Patient will verbalize/demonstrate understanding of assistive d evices/modifications for ADL. 3=Patient will improve strength/tolerance for activity to enable patient to perform ADL's. OT Education/Plan Problem List/Assessment Assessment: Decreased Activ Tolerance, Decreased Safety Aware, Impaired Self- Care Skills Discharge Recommendations Plan/Recommendations: Continue POC Treatment Plan/Plan of Care Patient would benefit from OT for education, treatment and training to promote independence in ADL's, mobility, safety and/or upper extremity function for ADL's. Plan of Care: ADL Retraining, Functional Mobility, UE Funct Exercise/Act Treatment Duration: Aug 13, 2021 Frequency: 5 times per week Estimated Hrs Per Day: .25 hour per day Rehab Potential: Guarded Time/GCodes Start Time: 11:00 Stop Time: 11:23 Total Time Billed (hr/min): 23 Billed Treatment Time 1 visit-FA 2 (23 min) GEOVANY OLSON Aug 02, 2021 11:36
[2021-08-02 12:00] VITALS: BP 114/77
--- NOTE | 2021-08-02 13:01 | Progress Note - Hospitalist ---
Subjective HPI/CC On Admission Date Seen by Provider: Aug 02, 2021 Time Seen by Provider: 09:50 Patient is an 86-year-old male with past medical history of atrial fibrillation, DVT, coronary artery disease status post stenting, hypertension, hyperlipidemia, stroke who presented to the emergency department after a fall. He reports his legs gave out on him and he fell onto his right hip. EMS was summoned due to his pain and inability to move. In the emergency room he was found to have a right hip fracture and has been admitted for operative care later today. This morning he complains of pain and is requesting a pain shot. He is also preemptively apologizing for "cussing everyone out" because he knows he will be in very severe pain and thinks he will be unable to control his temper. Subjective/Events-last exam He is feeling well today. He denies any pain. He denies shortness of breath. He is sitting in his bedside chair. Objective Exam Vital Signs Vital Signs Date Time Temp Pulse Resp B/P (MAP) Pulse Ox O2 Delivery O2 Flow Rate FiO2 08/02/21 12:00 36.6 64 20 114/77 (89) 92 Nasal Cannula 2.00 Capillary Refill : Less Than 3 SecondsLess Than 3 Seconds General Appearance: No Apparent Distress, Chronically ill, Thin Respiratory: Lungs Clear, Normal Breath Sounds, No Respiratory Distress Cardiovascular: Regular Rate, Rhythm, No Edema, No Murmur Gastrointestinal: Normal Bowel Sounds, Non Tender, Soft Extremity: Normal Inspection, Non Tender, No Pedal Edema Neurologic/Psychiatric: Alert, Oriented x3, No Motor/Sensory Deficits, Normal Mood/Affect Skin: Normal Color, Warm/Dry Results/Procedures Lab Laboratory Tests 08/02/21 05:55 Patient resulted labs reviewed. Imaging: Reviewed Imaging Report Assessment/Plan Assessment and Plan Assess & Plan/Chief Complaint Right hip fracture Falls Debility POD #5 Pain regimen per Ortho Continue pain regimen PT/OT post op Will likely need placement, SW consulted and referral sent to [facility] Anemia postoperative Hgb 8.3 s/p 2 units pRBC trend A-fib with RVR- now resolved Noncompliance Dilated cardiomyopathy, EF 5/20- 15-20% Mitral regurgitation Tricupsid regurgiation CAD Long standing a fib Rate improved, was up to 120s before meds but improved with oral diltiazem Cardiology consulted, appreciate recs Monitor on telemetry DVT ppx: Eliquis on hold for anemia PHYLICIA, resolved Diagnosis/Problems Diagnosis/Problems (1) Closed right hip fracture Status: Acute Qualifiers: Encounter type: initial encounter Qualified Codes: S72.001A - Fracture of unspecified part of neck of right femur, initial encounter for closed fracture (2) Acute kidney injury Status: Resolved Resolution Date/Time: 08/02/21 @ 13:02 (3) Generalized weakness Status: Acute (4) Permanent atrial fibrillation Status: Chronic (5) Anemia Status: Acute PEE FRANKS MD Aug 02, 2021 13:01
--- NOTE | 2021-08-02 13:20 | Progress Note - Cardiology ---
Cardiology SOAP Progress Note Subjective: Gen weakness and malaise, profound Short of breath with mild activity No syncope No cp or palp No n/v/d Poor appetite Objective: I&O/Vital Signs 08/02/21 08/02/21 08/02/21 08/02/21 04:00 07:00 08:00 08:00 Temp 36.4 36.6 Pulse 93 89 103 Resp 20 18 B/P (MAP) 102/68 (79) 121/71 (88) Pulse Ox 97 97 O2 Delivery Nasal Cannula Nasal Cannula Nasal Cannula O2 Flow Rate 2.00 2.00 2.00 08/02/21 08/02/21 09:37 12:00 Temp 36.6 Pulse 64 Resp 20 B/P (MAP) 114/77 (89) Pulse Ox 92 O2 Delivery Nasal Cannula Nasal Cannula O2 Flow Rate 2.00 2.00 08/02/21 00:00 Intake Total 1160 ml Output Total 525 ml Balance 635 ml Weight (Pounds): 163 Weight (Ounces): 2.0 Weight (Calculated Kilograms): 73.813359 Constitutional: AAO x 3, other (Thin and cachectic appearing) Respiratory: No accessory muscle use; other (fair air entry, diminished at the bases) Cardiovascular: irregularly irregular, S1 and S2, systolic murmur (soft ELIE at the cardiac base) Gastrointestional: No tender; soft; No guarding, No rebound; audible bowel sounds Extremities: No clubbing, No cyanosis, No significant edema Neurologic/Psychiatric: No oriented x 3; other (appears to move all limbs equally) Skin: No rash on exposed areas, No ulcerations on exposed areas Results/Procedures: Labs Laboratory Tests 08/02/21 05:55: White Blood Count 4.1L, Red Blood Count 2.50L, Hemoglobin 8.3L, Hematocrit 25L, Mean Corpuscular Volume 100H, Mean Corpuscular Hemoglobin 33, Mean Corpuscular Hemoglobin Concent 33, Red Cell Distribution Width 17.9H, Platelet Count 73L, Mean Platelet Volume 13.0H, Percent Immature Platelet Fraction 17.2H, Sodium Level 134L, Potassium Level 3.6, Chloride Level 102, Carbon Dioxide Level 25, Anion Gap 7, Blood Urea Nitrogen 20H, Creatinine 0.60, Estimat Glomerular Filtration Rate 128, BUN/Creatinine Ratio 33, Glucose Level 104, Calcium Level 8.3L Laboratory Tests 08/01/21 05:45 08/02/21 05:55 A/P: Assessment: Post-op (R hip surg) anemia - improved following transfusion Thrombocytopenia - undetermined etiology - advise hematology consult Chronic A Fib, currently with RVR - Eliquis for stroke prophylaxis Acute renal failure with mild hyperkalemia - improved after hydration S/P non-syncopal fall leading to right hip fracture - reapair by Dr. Leung Nonsyncopal falls - leading to left hip fracture on 11-18-2020, treated with femoral neck fixation on 11/19/[address] Petit - recurrent fall on 07-27-21 leading to right hip fracture, being treated with right hip bipolar replacement by Dr. 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 - Last cath was on 05/20/14. It showed diffuse disease consisting of up to 50% stenoses in all cors. FFR across multiple mid-vessel LAD lesions was 0.92, indicating hemodynamic insignificance. There was a patent stent in mid LAD and in distal RCA. Distal RCA stent is known to be Promus [id number] placed in Aug 2012. LVEF on cath of May 2014 was 45% and LVEDP was mildly elevated Hyperlipidemia - but the patient is intolerant to statins. H/o postural hypotension - resolved following cessation of therapy with RYAN inhibitors and Terazosin. Multiple medication intolerances. See below. - Intolerance to beta-blockers on account of symptomatic bradycardia and hypotension. - Intolerance to RYAN inhibitors on account of postural hypotension - Intolerance to ARBs on account of dizziness. - Intolerance to statins - Intolerance to warfarin due to nonspecific symptoms and fear of side effects - has tolerated apixaban Carotid dz - Mild carotid arterial disease (less than 40%) per carotid ultrasonography of May 2016. Chronic moderate vertigo Chronic low back pain - s/p low low back kyphoplasty, but back pain has persisted Plan: * H/H improved following transfusions * Thrombocytopenia of undetermined etiology - advise hematology consult * Elevated liver enzymes of undetermined etiology - medical services managing * Continue long-acting diltiazem * Not suitable for beta-charleen (see under Assessment) * Monitor labs closely * Guarded prognosis due to multiple comorbidities and progressively deteriorating functional status and multiple nonsyncopal falls in the last several months UZIEL SHEEHAN MD [facility] Aug 02, 2021 13:20
--- NOTE | 2021-08-02 13:31 | Physical Therapy Progress Note ---
Therapy Progress Note Patient in bed, refuses physical therapy. The benefits of therapy are discussed with him and he continues to refuse. He refuses exercises in bed. Patient states he is upset about having to go to a custodial. RAVEN LOAIZA PT Aug 02, 2021 13:31
[2021-08-02 15:30] VITALS: BP 124/61
[2021-08-02 20:15] VITALS: BP 122/96
[2021-08-02 23:52] VITALS: BP 117/60
[2021-08-03 03:01] VITALS: BP 90/55
[2021-08-03] MEDS: MULTIVIT W/MINERALS TAB (THERAGRAN M) PO SCH (06:11)
[2021-08-03 08:00] VITALS: BP 113/72
[2021-08-03 08:17] LABS: EOSINOPHILS % (AUTO) 1 % (0-10); HEMOGLOBIN 8.9 g/dL (13.3-17.7); MONOCYTES # (AUTO) 0.3 10^3/uL (0.0-1.0)
[2021-08-03] MEDS: SENNOSIDES 8.6 MG (SENOKOT) TAB PO SCH (08:17)
[2021-08-03] MEDS: APIXABAN 5 MG (ELIQUIS) TABLET PO SCH (08:18)
[2021-08-03] MEDS: HYDROcodone/APAP 5 MG/325 MG (LORTAB) TAB PO PRN ×2 (08:18→13:24)
[2021-08-03 08:19] LABS: BASOPHILS % (AUTO) 1 % (0-10); HEMATOCRIT 27 % (40-54); LYMPHOCYTES # (AUTO) 0.9 10^3/uL (1.0-4.0); LYMPHOCYTES % (AUTO) 22 % (12-44); MEAN CORPUSCULAR HEMOGLOBIN 34 pg (25-34); MEAN CORPUSCULAR HGB CONC 33 g/dL (32-36); MEAN CORPUSCULAR VOLUME 101 fL (80-99); MEAN PLATELET VOLUME 13.8 fL (9.0-12.2); MONOCYTES % (AUTO) 8 % (0-12); NEUTROPHILS # (AUTO) 2.7 10^3/uL (1.8-7.8); NEUTROPHILS % (AUTO) 65 % (42-75); PLATELET COUNT 84 10^3/uL (130-400); WHITE BLOOD COUNT 4.2 10^3/uL (4.3-11.0)
[2021-08-03 08:38] LABS: CALCIUM 8.7 MG/DL (8.5-10.1); CREATININE SERUM 0.65 MG/DL (0.60-1.30); POTASSIUM 3.9 MMOL/L (3.6-5.0)
--- NOTE | 2021-08-03 10:12 | Progress Note - Cardiology ---
Cardiology SOAP Progress Note Subjective: Lying in bed States he is feeling better this morning No c/o CP or SOB No c/o palpitations Objective: I&O/Vital Signs 08/02/21 08/03/21 08/03/21 08/03/21 23:52 01:00 03:01 07:17 Temp 36.5 36.6 Pulse 89 80 79 62 Resp 20 20 B/P (MAP) 117/60 (79) 90/55 (67) Pulse Ox 95 91 O2 Delivery Nasal Cannula Nasal Cannula O2 Flow Rate 2.00 08/03/21 08/03/21 08/03/21 08:00 08:00 08:30 Temp 36.5 Pulse 75 Resp 18 B/P (MAP) 113/72 (86) Pulse Ox 93 O2 Delivery Nasal Cannula Nasal Cannula Nasal Cannula O2 Flow Rate 2.00 2.00 2.00 08/03/21 00:00 Intake Total 800 ml Output Total 1200 ml Balance -400 ml Weight (Pounds): 163 Weight (Ounces): 2.0 Weight (Calculated Kilograms): 73.563468 Constitutional: AAO x 3, other (Thin and cachectic appearing) Respiratory: No accessory muscle use; other (fair air entry, diminished at the bases) Cardiovascular: irregularly irregular, S1 and S2, systolic murmur (soft ELIE at the cardiac base) Gastrointestional: No tender; soft; No guarding, No rebound; audible bowel sounds Extremities: No clubbing, No cyanosis, No significant edema Neurologic/Psychiatric: No oriented x 3; other (appears to move all limbs equally) Skin: No rash on exposed areas, No ulcerations on exposed areas Results/Procedures: Labs Laboratory Tests 08/03/21 08:00: White Blood Count 4.2L, Red Blood Count 2.66L, Hemoglobin 8.9L, Hematocrit 27L, Mean Corpuscular Volume 101H, Mean Corpuscular Hemoglobin 34, Mean Corpuscular Hemoglobin Concent 33, Red Cell Distribution Width 17.8H, Platelet Count 84L, Mean Platelet Volume 13.8H, Immature Granulocyte % (Auto) 3, Neutrophils (%) (Auto) 65, Lymphocytes (%) (Auto) 22, Monocytes (%) (Auto) 8, Eosinophils (%) (Auto) 1, Basophils (%) (Auto) 1, Neutrophils # (Auto) 2.7, Lymphocytes # (Auto) 0.9L, Monocytes # (Auto) 0.3, Eosinophils # (Auto) 0.0, Basophils # (Auto) 0.0, Immature Granulocyte # (Auto) 0.1, Percent Immature Platelet Fraction 18.4H 08/03/21 08:10: Sodium Level 137, Potassium Level 3.9, Chloride Level 103, Carbon Dioxide Level 27, Anion Gap 7, Blood Urea Nitrogen 17, Creatinine 0.65, Estimat Glomerular F iltration Rate 117, BUN/Creatinine Ratio 26, Glucose Level 106H, Calcium Level 8.7 Laboratory Tests 08/02/21 05:55 08/03/21 08:00 08/03/21 08:10 A/P: Assessment: Post-op (R hip surg) anemia - improved following transfusion Thrombocytopenia - undetermined etiology - advise hematology consult Chronic A Fib, currently with RVR - Eliquis for stroke prophylaxis Acute renal failure with mild hyperkalemia - improved after hydration S/P non-syncopal fall leading to right hip fracture - reapair by Dr. Leung Nonsyncopal falls - leading to left hip fracture on 11-18-2020, treated with femoral neck fixation on 11/19/[address] Petit - recurrent fall on 07-27-21 leading to right hip fracture, being treated with right hip bipolar replacement by Dr. 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 - Last cath was on 05/20/14. It showed diffuse disease consisting of up to 50% stenoses in all cors. FFR across multiple mid-vessel LAD lesions was 0.92, indicating hemodynamic insignificance. There was a patent stent in mid LAD and in distal RCA. Distal RCA stent is known to be Promus [id number] placed in Aug 2012. LVEF on cath of May 2014 was 45% and LVEDP was mildly elevated Hyperlipidemia - but the patient is intolerant to statins. H/o postural hypotension - resolved following cessation of therapy with RYAN inhibitors and Terazosin. Multiple medication intolerances. See below. - Intolerance to beta-blockers on account of symptomatic bradycardia and hypotension. - Intolerance to RYAN inhibitors on account of postural hypotension - Intolerance to ARBs on account of dizziness. - Intolerance to statins - Intolerance to warfarin due to nonspecific symptoms and fear of side effects - has tolerated apixaban Carotid dz - Mild carotid arterial disease (less than 40%) per carotid ultrasonography of May 2016. Chronic moderate vertigo Chronic low back pain - s/p low low back kyphoplasty, but back pain has persisted Plan: * H/H improved following transfusions * Thrombocytopenia of undetermined etiology- advise hematology consult * Elevated liver enzymes of undetermined etiology - medical services managing * Continue long-acting diltiazem * Not suitable for beta-charleen (see under Assessment) * Monitor labs closely * Guarded prognosis due to multiple comorbidities and progressively deteriorating functional status and multiple nonsyncopal falls in the last several months CAITLYN SANTILLAN Aug 03, 2021 10:12
--- NOTE | 2021-08-03 10:40 | Physical Therapy Daily Note ---
PT Daily Note-Current Subjective Patient agrees to PT. Mental Status Patient Orientation: Person, Time, Situation Attachments: Oxygen, Addison Catheter Transfers SCALE: Activities may be completed with or without assistive devices. 2-Oztnwrbrbt-amuihaz completes the activity by him/herself with no assistance from a helper. 5-Set-up or Clean-up Assistance-helper sets up or cleans up; patient completes activity. [place] assists only prior to or following the activity. 4-Supervision or Touching Assistance-helper provides verbal cues and/or touching/steadying and/or contact guard assistance as patient completes activity. Assistance may be provided throughout the activity or intermittently. 3-Partial/Moderate Assistance-helper does LESS THAN HALF the effort. [place] lifts, holds or supports trunk or limbs, but provides less than half the effort. 2-Substantial/Maximal Assistance-helper does MORE THAN HALF the effort. [place] lifts or holds trunk or limbs and provides more than half the effort. 1-Xrmdqnekn-anrchv does ALL the effort. Patient does none of the effort to complete the activity. Or, the assistance of 2 or more helpers is required for the patient to complete the activity. If activity was not attempted, code reason: 7-Patient Refused. 9-Not Applicable-not attempted and the patient did not perform the activity before the current illness, exacerbation or injury. 10-Not Attempted due to Environmental Limitations-(lack of equipment, weather restraints, etc.). 88-Not Attempted due to Medical Conditions or Safety Concerns. Lying to Sitting/Side of Bed(Q: 2 Sit to Stand (QC): 2 Chair/Auw-bn-Tucey Xfer(QC): 2 Weight Bearing Right Lower Extremity: Right Weight Bearing/Tolerated Left Lower Extremity: Left Full Weight Bearing Gait Training Distance: 5' Gait Assistive Device: FWW shuffle gait sequence Exercises Seated Therapy Exercises: Ankle pumps, Long arc quads Seated Reps: 12 Assessment Patient is up in recliner with needs met. Increase activity as tolerated by patient. PT Assisted Goals Assisted Goals PT Field Contractor Goals Time Frame: Aug 05, 2021 Roll Left & Right (QC): 3 Sit to Lying (QC): 3 Lying-Sitting on Side/Bed(QC): 3 PT Plan Treatment/Plan Treatment Plan: Continue Plan of Care Treatment Plan: Bed Mobility, Education, Functional Activity Virgilio, Functional Strength, Gait, Safety, Therapeutic Exercise, Transfers Treatment Duration: Aug 05, 2021 Frequency: 11 times per week Estimated Hrs Per Day: .25 hour per day Patient and/or Family Agrees t: Yes Time/GCodes Time In: 1000 Time Out: 1016 Total Billed Treatment Time: 16 Total Billed Treatment 1 visit FA 16 min JONA SAUNDERS PT Aug 03, 2021 10:40
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
[2021-08-03 11:40] VITALS: BP 136/65
--- NOTE | 2021-08-03 12:19 | Progress Note ---
Standard Progress Note Progress Notes/Assess & Plan Date Seen by a Provider: Aug 03, 2021 Time Seen by a Provider: 12:18 Progress/Assessment & Plan post op check Radiographs--HW well positioned without fracture RLE--1 plus DP pulse with brisk cap refill intact DF and PF of toes and ankle with intact sensation to light touch throughout s/p R hip bipolar mobilize as able Final Diagnosis Doing better Vital Signs Date Time Temp Pulse Resp B/P (MAP) Pulse Ox O2 Delivery O2 Flow Rate FiO2 08/03/21 11:40 36.4 99 20 136/65 (88) 93 Nasal Cannula 2.00 08/03/21 08:30 Nasal Cannula 2.00 08/03/21 08:00 Nasal Cannula 2.00 08/03/21 08:00 36.5 75 18 113/72 (86) 93 Nasal Cannula 2.00 08/03/21 07:17 62 08/03/21 03:01 36.6 79 20 90/55 (67) 91 Nasal Cannula 2.00 08/03/21 01:00 80 08/02/21 23:52 36.5 89 20 117/60 (79) 95 Nasal Cannula 08/02/21 20:15 35.3 90 20 122/96 (105) 98 Nasal Cannula 08/02/21 20:00 Nasal Cannula 2.00 08/02/21 19:00 95 08/02/21 15:30 36.6 88 18 124/61 (82) 95 Nasal Cannula 2.00 08/02/21 13:48 73 I & O 08/03/21 07:00 Intake Total 900 ml Output Total 1500 ml Balance -600 ml Laboratory Tests Test 08/03/21 08:00 08/03/21 08:10 Range/Units White Blood Count 4.2 L 4.3-11.0 10^3/uL Red Blood Count 2.66 L 4.30-5.52 10^6/uL Hemoglobin 8.9 L 13.3-17.7 g/dL Hematocrit 27 L 40-54 % Mean Corpuscular Volume 101 H 80-99 fL Mean Corpuscular Hemoglobin 34 25-34 pg Mean Corpuscular Hemoglobin Concent 33 32-36 g/dL Red Cell Distribution Width 17.8 H 10.0-14.5 % Platelet Count 84 L 130-400 10^3/uL Mean Platelet Volume 13.8 H 9.0-12.2 fL Immature Granulocyte % (Auto) 3 % Neutrophils (%) (Auto) 65 42-75 % Lymphocytes (%) (Auto) 22 12-44 % Monocytes (%) (Auto) 8 0-12 % Eosinophils (%) (Auto) 1 0-10 % Basophils (%) (Auto) 1 0-10 % Neutrophils # (Auto) 2.7 1.8-7.8 10^3/uL Lymphocytes # (Auto) 0.9 L 1.0-4.0 10^3/uL Monocytes # (Auto) 0.3 0.0-1.0 10^3/uL Eosinophils # (Auto) 0.0 0.0-0.3 10^3/uL Basophils # (Auto) 0.0 0.0-0.1 10^3/uL Immature Granulocyte # (Auto) 0.1 0.0-0.1 10^3/uL Percent Immature Platelet Fraction 18.4 H 0.0-7.6 % Sodium Level 137 135-145 MMOL/L Potassium Level 3.9 3.6-5.0 MMOL/L Chloride Level 103 98-107 MMOL/L Carbon Dioxide Level 27 21-32 MMOL/L Anion Gap 7 5-14 MMOL/L Blood Urea Nitrogen 17 7-18 MG/DL Creatinine 0.65 0.60-1.30 MG/DL Estimat Glomerular Filtration Rate 117 BUN/Creatinine Ratio 26 Glucose Level 106 H 70-105 MG/DL Calcium Level 8.7 8.5-10.1 MG/DL RLE--incision without erythema or warmth. no calf tenderness s.p R hip bipolar TO SNF FU with me in two weeks TOMAS COX MD Aug 03, 2021 12:19
--- NOTE | 2021-08-03 13:07 | Discharge Summary ---
Discharge Summary Hospital Course Hospital Course Date of Admission: Jul 27, 2021 at 21:00 Admission Diagnosis : Hip fracture Family Physician/Provider: Elieser Peraza MD Date of Discharge: 08/03/21 Discharge Diagnosis: Hip fracture Hospital Course: Mitchel Prince Jr is an 86-year-old male who presented after a fall and was admitted with a hip fracture. He underwent surgical repair with Dr. Leung. His course was complicated by postoperative anemia. He required 2 units PRBC transfusion. His hemoglobin remained stable after the transfusions. He was suffering from debility due to his hip fracture. He had previously broken his other hip about a year ago. He was discharged to [facility] re[facility] for ongoing therapies. Labs and Pending Lab Test: Laboratory Tests 08/03/21 08:00: White Blood Count 4.2L, Red Blood Count 2.66L, Hemoglobin 8.9L, Hematocrit 27L, Mean Corpuscular Volume 101H, Mean Corpuscular Hemoglobin 34, Mean Corpuscular Hemoglobin Concent 33, Red Cell Distribution Width 17.8H, Platelet Count 84L, Mean Platelet Volume 13.8H, Immature Granulocyte % (Auto) 3, Neutrophils (%) (Auto) 65, Lymphocytes (%) (Auto) 22, Monocytes (%) (Auto) 8, Eosinophils (%) (Auto) 1, Basophils (%) (Auto) 1, Neutrophils # (Auto) 2.7, Lymphocytes # (Auto) 0.9L, Monocytes # (Auto) 0.3, Eosinophils # (Auto) 0.0, Basophils # (Auto) 0.0, Immature Granulocyte # (Auto) 0.1, Percent Immature Platelet Fraction 18.4H 08/03/21 08:10: Sodium Level 137, Potassium Level 3.9, Chloride Level 103, Carbon Dioxide Level 27, Anion Gap 7, Blood Urea Nitrogen 17, Creatinine 0.65, Estimat Glomerular Filtration Rate 117, BUN/Creatinine Ratio 26, Glucose Level 106H, Calcium Level 8.7 08/03/21 12:35: Lab Scanned Report Transfusion Reaction Form Home Meds Active Reported Tiazac (Diltiazem HCl) 120 Mg Capsule.er 240 Mg PO 1600 W/DINNER TAKES 2 (120MG) CAPS Tiazac (Diltiazem HCl) 120 Mg Capsule.er 120 Mg PO DAILY Potassium Chloride 20 Meq Tab.er.prt 20 Meq PO 1200 Furosemide 40 Mg Tablet 40 Mg PO DAILY Centrum Silver Tablet (Multivit-Min/FA/Lycopene/Lut) 1 Each Tablet 1 Each PO 1200 Tylenol Extra Strength (Acetaminophen) 500 Mg Tablet 1,000 Mg PO Q8H PRN Tramadol HCl 50 Mg Tablet 50 Mg PO TID PRN Stool Softener (Docusate Sodium) 100 Mg Capsule 100-200 Mg PO DAILY PRN Aspirin EC (Aspirin) 81 Mg Tablet.dr 81 Mg PO 1200 Eliquis (Apixaban) 5 Mg Tablet 5 Mg PO BID Instructions to Patient/Family Assessment/Instructions Take medications as prescribed. Participate in therapies. Follow-up with your primary care physician. Return with worsening symptoms. Follow Up Appt.: next snf rounds Skilled NF Admit to: [facility] Certification (SNF) I certify that SNF services are required to be given on an inpatient basis because of the above named patient's need for group home care on a continuing basis for the conditions(s) for which he/she was receiving inpatient hospital services prior to his/her transfer to the SNF. Custodial Facility Order: Nursing Services, Human Services Case Manager-Evaluate & Treat, Physical Therapy-Evaluate & Treat Oxygen Delivery Method: Nasal Cannula Discharge Diet: No Restrictions Daily Activity as Tolerated: Yes Resuscitation Status: Full Code Pee Franks Aug 03, 2021 13:02 Discharge Physical Exam General: Alert, Oriented X3, Cooperative, No Acute Distress HEENT: Atraumatic, PERRLA, EOMI, Mucous Memb Moist/Rubicon Lungs: Clear to Auscultation, Normal Air Movement Heart: Regular Rate, Normal S1, Normal S2, No Murmurs Abdomen: Normal Bowel Sounds, Soft, No Tenderness Extremities: No Edema, No Tenderness/Swelling Skin: No Rashes, No Significant Lesion Neuro: Normal Speech, Other (weakness) Psych/Mental Status: Mental Status NL, Other (agitated and irritable) PEE FRANKS MD Aug 03, 2021 13:07
--- NOTE | 2021-08-03 14:10 | Progress Note - Cardiology ---
Cardiology SOAP Progress Note Subjective: No new symptoms Shortness of breath and gen weakness as before No cp or palp or syncope No n/v/d Wishes to leave the hospital Objective: I&O/Vital Signs 08/03/21 08/03/21 08/03/21 08/03/21 03:01 07:17 08:00 08:00 Temp 36.6 36.5 Pulse 79 62 75 Resp 20 18 B/P (MAP) 90/55 (67) 113/72 (86) Pulse Ox 91 93 O2 Delivery Nasal Cannula Nasal Cannula Nasal Cannula O2 Flow Rate 2.00 2.00 2.00 08/03/21 08/03/21 08/03/21 08:30 11:40 13:00 Temp 36.4 Pulse 99 104 Resp 20 B/P (MAP) 136/65 (88) Pulse Ox 93 O2 Delivery Nasal Cannula Nasal Cannula O2 Flow Rate 2.00 2.00 08/02/21 23:59 Intake Total 800 ml Output Total 1200 ml Balance -400 ml Weight (Pounds): 163 Weight (Ounces): 2.0 Weight (Calculated Kilograms): 73.174907 Constitutional: AAO x 3, other (Thin and cachectic appearing) Respiratory: No accessory muscle use; other (fair air entry, diminished at the bases) Cardiovascular: irregularly irregular, S1 and S2, systolic murmur (soft ELIE at the cardiac base) Gastrointestional: No tender; soft; No guarding, No rebound; audible bowel sounds Extremities: No clubbing, No cyanosis, No significant edema Neurologic/Psychiatric: No oriented x 3; other (appears to move all limbs equally) Skin: No rash on exposed areas, No ulcerations on exposed areas Results/Procedures: Labs Laboratory Tests 08/03/21 08:00: White Blood Count 4.2L, Red Blood Count 2.66L, Hemoglobin 8.9L, Hematocrit 27L, Mean Corpuscular Volume 101H, Mean Corpuscular Hemoglobin 34, Mean Corpuscular Hemoglobin Concent 33, Red Cell Distribution Width 17.8H, Platelet Count 84L, Mean Platelet Volume 13.8H, Immature Granulocyte % (Auto) 3, Neutrophils (%) (Auto) 65, Lymphocytes (%) (Auto) 22, Monocytes (%) (Auto) 8, Eosinophils (%) (Auto) 1, Basophils (%) (Auto) 1, Neutrophils # (Auto) 2.7, Lymphocytes # (Auto) 0.9L, Monocytes # (Auto) 0.3, Eosinophils # (Auto) 0.0, Basophils # (Auto) 0.0, Immature Granulocyte # (Auto) 0.1, Percent Immature Platelet Fraction 18.4H 08/03/21 08:10: Sodium Level 137, Potassium Level 3.9, Chloride Level 103, Carbon Dioxide Level 27, Anion Gap 7, Blood Urea Nitrogen 17, Creatinine 0.65, Estimat Glomerular Filtration Rate 117, BUN/Creatinine Ratio 26, Glucose Level 106H, Calcium Level 8.7 08/03/21 12:35: Lab Scanned Report Transfusion Reaction Form Laboratory Tests 08/02/21 05:55 08/03/21 08:00 08/03/21 08:10 A/P: Assessment: Post-op (R hip surg) anemia - improved following transfusion Thrombocytopenia - undetermined etiology, stable, slightly improved - advise hematology consult Chronic A Fib, currently with RVR - Eliquis for stroke prophylaxis Acute renal failure with mild hyperkalemia - improved after hydration S/P non-syncopal fall leading to right hip fracture - reapair by Dr. Leung Nonsyncopal falls - leading to left hip fracture on 11-18-2020, treated with femoral neck fixation on 11/19/[address] Petit - recurrent fall on 07-27-21 leading to right hip fracture, being treated with right hip bipolar replacement by Dr. 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 - Last cath was on 05/20/14. It showed diffuse disease consisting of up to 50% stenoses in all cors. FFR across multiple mid-vessel LAD lesions was 0.92, indicating hemodynamic insignificance. There was a patent stent in mid LAD and in distal RCA. Distal RCA stent is known to be [id number] [id number] placed in Aug 2012. LVEF on cath of May 2014 was 45% and LVEDP was mildly elevated Hyperlipidemia - but the patient is intolerant to statins. H/o postural hypotension - resolved following cessation of therapy with RYAN inhibitors and Terazosin. Multiple medication intolerances. See below. - Intolerance to beta-blockers on account of symptomatic bradycardia and hypotension. - Intolerance to RYAN inhibitors on account of postural hypotension - Intolerance to ARBs on account of dizziness. - Intolerance to statins - Intolerance to warfarin due to nonspecific symptoms and fear of side effects - has tolerated apixaban Carotid dz - Mild carotid arterial disease (less than 40%) per carotid ultrasonography of May 2016. Chronic moderate vertigo Chronic low back pain - s/p low low back kyphoplasty, but back pain has persisted Plan: * H/H improved following transfusions * Thrombocytopenia of undetermined etiology- advise hematology consult * Elevated liver enzymes of undetermined etiology - medical services managing * Continue long-acting diltiazem * Not suitable for beta-charleen (see under Assessment) * Monitor labs closely * Guarded prognosis due to multiple comorbidities and progressively deteriorating functional status and multiple nonsyncopal falls in the last several months UZIEL SHEEHAN MD [facility] Aug 03, 2021 14:10
[2021-08-03 15:05] VITALS: BP 136/65
== END 2021-08-03 15:00 | DRG 521 ==
LOC: EDUNIT# 18:51 → ER 18:52 → 4TH 21:00
PROVIDERS: ADMIT Internal Medicine; ATTEND Internal Medicine
PROC: 0SRR0JA Replacement of Right Hip Joint, Femoral Surface with Synthetic Substitute, Uncemented, Open Approach (ICD-10-PCS; principal; 2021-07-28 08:54)
DX: S72.001A Fracture of unspecified part of neck of right femur, initial encounter for closed fracture (principal); I50.23 Acute on chronic systolic (congestive) heart failure; D62 Acute posthemorrhagic anemia; I42.0 Dilated cardiomyopathy; N17.9 Acute kidney failure, unspecified; I48.21 Permanent atrial fibrillation; I48.0 Paroxysmal atrial fibrillation; W19.XXXA Unspecified fall, initial encounter; Z95.5 Presence of coronary angioplasty implant and graft; Z86.718 Personal history of other venous thrombosis and embolism; I25.2 Old myocardial infarction; E78.00 Pure hypercholesterolemia, unspecified; Z86.73 Personal history of transient ischemic attack (TIA), and cerebral infarction without residual deficits; N40.0 Benign prostatic hyperplasia without lower urinary tract symptoms; G89.29 Other chronic pain; M54.9 Dorsalgia, unspecified; F41.9 Anxiety disorder, unspecified; Z79.82 Long term (current) use of aspirin; Z79.01 Long term (current) use of anticoagulants; Z79.899 Other long term (current) drug therapy; R53.81 Other malaise; Z91.14 Patient's other noncompliance with medication regimen; I08.1 Rheumatic disorders of both mitral and tricuspid valves; I25.10 Atherosclerotic heart disease of native coronary artery without angina pectoris; E87.5 Hyperkalemia; D69.6 Thrombocytopenia, unspecified; Z87.891 Personal history of nicotine dependence; Z88.5 Allergy status to narcotic agent; R42 Dizziness and giddiness; I11.0 Hypertensive heart disease with heart failure
CPT/HCPCS: 36415; 51702; 70450; 71045; 72125; 73502; 80048; 80053; 81000; 82947; 83735; 85014; 85018; 85025; 85027; 86850; 86900; 86901; 86920; 88305; 88311; 93005; 94664; 94760; 96361; 96374; 96375

== ENCOUNTER → 2021-08-04 | Outpatient (CLI) | payer MEDICARE, OTHER ==
[~2021-08-04] MED LIST changes: +DILT-8 PO; +MULT-1029 PO; +POTA20TA15 PO
--- NOTE | 2021-08-04 14:24 | Diagnostic Imaging Report ---
CLINICAL INDICATION: Patient with hallucinations. Evaluate for intracranial process. EXAM: Axial CT scan of the brain without IV contrast with coronal and sagittal reformatted images. Auto Exposure Controls were utilized during the CT exam to meet ALARA standards for radiation dose reduction. COMPARISON: CT scan of the head and cervical spine dated 07/27/2021. FINDINGS: There is no interval evidence of acute cerebral infarct, intracranial hemorrhage, brain herniation, or midline shift. There is no significant change to the multiple focal, patchy, and confluent areas of low-attenuation white matter changes involving both cerebral hemispheres and periventricular regions, likely related to chronic small vessel ischemic disease and leukoaraiosis. 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 Stable diffuse brain parenchymal volume loss. There is no hydrocephalus. Basal cisterns are unremarkable and stable. The extracranial soft tissue, skull, and orbits are unremarkable. Paranasal sinuses and mastoid air cells are clear. IMPRESSION: Stable CT scan of the brain with no evidence of interval acute intracranial process. Dictated by: Dictated on workstation # [id number]
== END ==
LOC: RAD 14:00
PROVIDERS: ATTEND Nurse Practitioner Family
DX: R44.3 Hallucinations, unspecified (principal)
CPT/HCPCS: 70450

== ENCOUNTER → 2021-09-02 | Outpatient (CLI) | payer OTHER, MEDICARE ==
[2021-09-02 12:12] LABS: ABSOLUTE RETIC # 76 10e9/uL (24-90); BASOPHILS # (AUTO) 0.1 10^3/uL (0.0-0.1); BASOPHILS % (AUTO) 1 % (0-10); EOSINOPHILS % (AUTO) 0 % (0-10); HEMATOCRIT 28 % (40-54); HEMOGLOBIN 9.1 g/dL (13.3-17.7); LYMPHOCYTES # (AUTO) 0.9 10^3/uL (1.0-4.0); LYMPHOCYTES % (AUTO) 13 % (12-44); MEAN CORPUSCULAR HEMOGLOBIN 35 pg (25-34); MEAN CORPUSCULAR HGB CONC 33 g/dL (32-36); MEAN CORPUSCULAR VOLUME 107 fL (80-99); MEAN PLATELET VOLUME 12.5 fL (9.0-12.2); MONOCYTES # (AUTO) 0.3 10^3/uL (0.0-1.0); MONOCYTES % (AUTO) 4 % (0-12); NEUTROPHILS # (AUTO) 5.1 10^3/uL (1.8-7.8); NEUTROPHILS % (AUTO) 76 % (42-75); PLATELET COUNT 111 10^3/uL (130-400); RETICULOCYTE % 2.93 % (0.50-2.40); WHITE BLOOD COUNT 6.7 10^3/uL (4.3-11.0)
[2021-09-02 12:34] LABS: BAND NEUTROPHILS 0 %; BASOPHILS % (MANUAL) 0 %; EOSINOPHILS % (MANUAL) 0 %; LYMPHOCYTES % (MANUAL) 6 %; MONOCYTES % (MANUAL) 2 %; NEUTROPHILS % (MANUAL) 92 %; PLATELET CLUMPS MODERATE
[2021-09-02 12:35] LABS: ACANTHOCYTES SLIGHT; ANISOCYTOSIS MARKED; BURR CELLS MODERATE; ELLIPT/OVALOCYTES MODERATE; POIKILOCYTOSIS MARKED; POLYCHROMASIA SLIGHT
[2021-09-02 12:36] LABS: SCHISTOCYTES SLIGHT
== END ==
LOC: LABNPT 12:04
PROVIDERS: ATTEND Internal Medicine
DX: D64.9 Anemia, unspecified (principal); I50.9 Heart failure, unspecified; I48.91 Unspecified atrial fibrillation; I25.10 Atherosclerotic heart disease of native coronary artery without angina pectoris
CPT/HCPCS: 85007; 85027; 85045; 85055